=== PATIENT | male | born 1960 | race Caucasian/White ===

== ENCOUNTER 2023-03-14 17:30 | Emergency (ER) | payer MEDICAID, SELFPAY ==
--- NOTE | ~2023-03-14 | XR_ITS ---
EXAMINATION: XR TOES, RIGHT CLINICAL INFORMATION: Great toe pain. COMPARISON: None available. TECHNIQUE: 3 views of the right toes were obtained. FINDINGS: No acute fractures or subluxation. Mild joint space narrowing and subcortical sclerosis of the first metatarsophalangeal joint. No erosions or abnormal soft tissue calcifications. No unexpected radiopaque foreign bodies. XR/XR toe RT min 2V IMPRESSION: 1. No acute fractures or subluxation. 2. 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
[2023-03-14 17:34] VITALS: BP 152/84; PULSE 101; O2SAT 97
--- NOTE | 2023-03-14 17:35 | ED.EXTPRO ---
HPI - Extremity Problem General Chief complaint: Extremity Injury, Lower Stated complaint: ETOH Related Data Allergies Allergy/AdvReac Type Severity Reaction Status Date / Time pollen extracts [POLLEN] Allergy Unknown UNKNOWN Verified 03/14/23 18:08 [facility] Social History Social History Advance Directives: No Advance Directives Information Provided: No Physical Exam Vital Signs: Vital Signs: Last Vital Signs Temp 96.8 F 03/14/23 18:08 Pulse 97 03/14/23 18:08 Resp 18 03/14/23 18:08 BP 117/76 03/14/23 18:08 Pulse Ox 95 03/14/23 18:08 O2 Del Method Room Air 03/14/23 18:08 BMI result Body Mass Index 26.6 Course Course Course Narrative: RME - 62 yo male presents to the ER from home via EMS for evaluation of right great toe pain for the last 1 month. Pain is radiating up the leg to the knee. It used to be red and swollen 2 weeks ago but it is no longer. He admits to drinking a pint of vodka to try to get the pain to go away. VSS for EMS Plan: XR toe Reevaluation(s) Reevaluation #1: patient belligerent and disruptive. he was escorted out by security Discharge Plan Discharge Clinical Impression: Lower extremity injury Patient Disposition: Elopement Discharge Date/Time: 03/14/23 20:53
[2023-03-14 18:08] VITALS: BP 117/76; PULSE 97; RESP 18; TEMP 36; O2SAT 95; BMI 26.6
--- NOTE | 2023-03-14 20:51 | PC.NURSE ---
Pt screaming at staff fuck you what the fuck is going on when am I going to see the doctor . Pt reminded that he is in a room now and the doctor will be in to see him as soon as they can. Pt threatening to leave at this time. Pt educated to stay in order to be medically cleared by doctor. Pt agitated and swearing at staff at this time. Pt eloped.
== END 2023-03-14 20:53 | disposition left against medical advice (07) ==
PROVIDERS: Emergency Provider Emergency Medicine
DX: M79.674 Pain in right toe(s) (principal)
CPT/HCPCS: 73660; 99281; 99283

== ENCOUNTER 2023-04-03 11:50 | Emergency (ER) | payer MEDICAID, SELFPAY ==
[2023-04-03 12:10] VITALS: BP 137/80; BP 182/120; PULSE 87; PULSE 96; RESP 18; TEMP 36.7; O2SAT 93; O2SAT 95; BMI 26.6
--- NOTE | 2023-04-03 13:23 | ED_ITS ---
HPI - Psych General Chief Complaint: ETOH/Substance Use Stated Complaint: etoh use per ems Time Seen by Provider: 04/03/23 12:54 Related Data Allergies Allergy/AdvReac Type Severity Reaction Status Date / Time pollen extracts [POLLEN] Allergy Unknown UNKNOWN Verified 03/14/23 18:08 [facility] Social History Social History Advance Directives: No Advance Directives Information Provided: No Physical Exam Vital Signs: Vital Signs: Last Vital Signs Temp 98.1 F 04/03/23 12:10 Pulse 87 04/03/23 12:10 Resp 18 04/03/23 12:10 BP 137/80 04/03/23 12:10 Pulse Ox 95 04/03/23 12:10 O2 Del Method Room Air 04/03/23 12:10 BMI result Body Mass Index 26.6
--- NOTE | 2023-04-03 13:28 | ED_ITS ---
HPI - Alcohol General Chief Complaint: ETOH/Substance Use Stated Complaint: etoh use per ems Time Seen by Provider: 04/03/23 12:54 Source: patient Mode of arrival: EMS History of Present Illness HPI narrative: 62-year-old male who states that he call the ambulance has been drinking this morning, states he has been sober for 2 years but relapsed on Monday and reports drinking 2 L then. He denies any history of seizures from abstaining from alcohol and denies any other medical problems. Related Data Allergies Allergy/AdvReac Type Severity Reaction Status Date / Time pollen extracts [POLLEN] Allergy Unknown UNKNOWN Verified 03/14/23 18:08 Review of Systems Review of Systems: Pertinent positives and negatives as stated in HPI PMFSH Past Medical History Source: nursing notes reviewed Social History Social History Alcohol intake: current Alcohol intake frequency: 3 or more drinks per day Alcohol type: hard liquor Smoked in Last 30 Days: No Use of substances other than those prescribed or required for medical reasons: No Advance Directives: No Advance Directives Information Provided: No Physical Exam ED Vital Signs: Vital Signs - 24 hr 04/03/23 12:10 04/03/23 15:14 Temperature 98.1 F 96.3 F L Pulse Rate 87 81 Respiratory Rate 18 17 Blood Pressure 137/80 137/77 Pulse Oximetry 95 92 Oxygen Delivery Method Room Air Room Air BMI result Body Mass Index 26.6 VITAL SIGNS: Reviewed. GENERAL: Well developed, well nourished, in no acute distress. HEAD: Normocephalic/atraumatic EYES: PERRLA, EOMI EARS: Ext canals without abnormality NOSE: Nares patent bilateral OROPHARYNX: no oral lesions noted, posterior pharynx clear NECK: Supple, no adenopathy LUNGS: Normal breath sounds. No adventitious sounds or accessory muscle use. SpO2<95> CARDIOVASCULAR: Regular rate and rhythm without noted murmurs ABDOMEN: Soft, non-tender, non-distended with bowel sounds. MUSCULOSKELETAL: No tenderness, deformities, or effusions noted on gross inspection. EXTREMITIES: No cyanosis, clubbing or edema. SKIN: Inspection of the skin reveals no rashes NEUROLOGIC: Alert and oriented x 4. Strength and sensation to light touch were grossly intact x 4, cranial nerves 2-12 grossly intact. Medical Decision Making Medical Decision Making MDM Narrative: 62-year-old male, relapse on alcohol no history of DTs with seizures, will observe and obtain BAL/UDS and place a consult to the aircraft launch and recovery technician. Patient has been at [facility] previously. I reviewed all investigations, BAL-to 90, otherwise UDS is negative. Patient remains hemodynamically stable and is tolerating oral intake. Awaiting at aircraft launch and recovery technician evaluation for placement. Patient placed in physician observation because the patient needed more time for sobriety and possible placement for detox. At the time observation was started the patient's vital signs were stable, patient is alert and oriented, neuro: Nonfocal, CV RRR, lungs clear 1535: Looks like possibility of placement at [facility], phone intake is pending. Differential Diagnosis Please see the discussion above Lab Data Please see the discussion above Labs: Lab Results 04/03/23 04/03/23 Range/Units 14:28 14:28 Urine Opiates Screen Not Detected (Not Detect) Urine Fentanyl Screen Not Detected (Not Detect) Ur Barbiturates Screen Not Detected (Not Detect) Ur Phencyclidine Scrn Not Detected (Not Detect) Ur Amphetamines Screen Not Detected (Not Detect) U Benzodiazepines Scrn Not Detected (Not Detect) Urine Cocaine Screen Not Detected (Not Detect) U Marijuana (THC) Screen Not Detected (Not Detect) Ethyl Alcohol 290 mg/dL External Record Review External record reviewed: Outpatient record and Prior outpatient labs Discharge Plan Discharge Clinical Impression: Alcohol intoxication in relapsed alcoholic Patient Disposition: Still a Patient
--- NOTE | 2023-04-03 13:42 | MHC.RECOVRN ---
This creative writer met with patient, Provider alerted this creative writer, patient requesting detox. Patient reports has been in recovery for 2 years. Patient reports recent relapse Monday03/31/23, has been drinking since then, patient reports at least a gallon of hard alcohol since 03/31/23. Patient reports no other substance use. Patient states has gone to detox treatment in the past and it was helpful. Patient requesting detox at this time. This creative writer to start detox bedsearch process.
[2023-04-03 15:02] LABS: Ethanol 290 mg/dL
[2023-04-03 15:04] LABS: Amphetamine Screen Urine Not Detected (Not Detect); Barbiturates, Urine Not Detected (Not Detect); Benzodiazepines Screen Urine Not Detected (Not Detect); Cannabinoid Screen Urine Not Detected (Not Detect); Cocaine Screen Urine Not Detected (Not Detect); Fentanyl, urine Not Detected (Not Detect); Opiate Screen Urine Not Detected (Not Detect); Phencyclidine Screen Urine Not Detected (Not Detect)
[2023-04-03 15:14] VITALS: BP 137/77; PULSE 81; RESP 17; TEMP 35.7; O2SAT 92
[2023-04-03] MEDS: Ibuprofen 600 MG TABLET PO (16:06)
--- NOTE | 2023-04-03 17:12 | PC.NURSE ---
Patient accepted at [facility], provider made aware of plan and will get discharge paperwork started.
--- NOTE | 2023-04-03 17:16 | MHC.RECOVSUP ---
? Reason for consult Recovery support o Current location: ED17H o Identified substance use concern: Alcohol - Seeking ATS (detox) - Support ? Intervention: o Harm reduction discussion ? Plan: o Patient to follow up with H after discharge ? Additional information: Met with patient and we talk Harm reduction.. patient has a bed at [place] and is awaiting a lyft.
--- NOTE | 2023-04-03 17:19 | PHA.MEDREC ---
Pharmacy Consult ? Medication Reconciliation Pharmacy has completed the medication reconciliation. Spoke with patient in the ED. Pt reports taking clonidine at bedtime but no history of filling this medication.
[2023-04-03 17:27] VITALS: BP 145/92; PULSE 112; RESP 18; O2SAT 95
== END 2023-04-03 17:31 | disposition home or self-care (01) ==
PROVIDERS: Emergency Provider Student in an Organized Health Care Education/Training Program; PCP Family Medicine
DX: F10.220 Alcohol dependence with intoxication, uncomplicated (principal); Y90.9 Presence of alcohol in blood, level not specified
CPT/HCPCS: 36415; 80307; 99284; 99285

== ENCOUNTER 2023-05-07 13:10 | Emergency (ER) | payer MEDICAID, SELFPAY ==
--- NOTE | ~2023-05-07 | XR_ITS ---
EXAMINATION: XR KNEE, RIGHT CLINICAL INFORMATION: Pain, injury COMPARISON: None available. TECHNIQUE: Four views of the right knee. FINDINGS: Bones and soft tissues are normal. No fracture or joint effusion. Alignment is anatomic. Mild-moderate medial compartment joint space narrowing and osteophyte formation. There is moderate patellofemoral narrowing. There is heterotopic calcification in the suprapatellar region. 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
--- NOTE | ~2023-05-07 | XR_ITS ---
EXAMINATION: XR BILATERAL HIPS WITH AP PELVIS CLINICAL INFORMATION: Pain COMPARISON: None available. TECHNIQUE: 2 views of the right hip and 2 views of the left hip FINDINGS: 2 views of the right hip show 2 part prosthesis. No evidence of hardware failure. No acute bony finding. 2 views of the left hip in straight prosthesis. No evidence of hardware failure. No acute finding. There is the appearance of some lateralization of the acetabular component but this is likely the baseline. Numerous linear areas of density are seen associated with the region of the lesser trochanter may represent postsurgical wires. XR/XR hips EMMETT min 3V IMPRESSION: There are no studies to compare. Other findings as noted. No acute finding right or left hip. Hardware in place.
--- NOTE | ~2023-05-07 | XR_ITS ---
EXAMINATION: XR PELVIS CLINICAL INFORMATION: Bilateral hip pain COMPARISON: None available. TECHNIQUE: AP view of the pelvis. FINDINGS: There are bilateral hip arthroplasties. The angulation of the left hip arthroplasty is suspicious for possible dislocation. The right hip arthroplasty appears appropriately located. XR/XR pelvis 1-2V IMPRESSION: The angulation of the left hip arthroplasty is suspicious for possible dislocation. Recommend additional views, including lateral views of the bilateral hips.
[2023-05-07 13:29] VITALS: BP 139/73; RESP 16; TEMP 37.4; O2SAT 94; BMI 26.1
--- NOTE | 2023-05-07 13:54 | ED_ITS ---
HPI - General Adult General Chief complaint: ETOH/Substance Use Stated complaint: CRISIS SI Time Seen by Provider: 05/07/23 13:53 Source: patient and EMS Mode of arrival: EMS Limitations: no limitations History of Present Illness HPI narrative: Patient is a 62 year old assigned male at with a history of alcohol abuse and chronic bilateral hip pain presenting to the emergency department today intoxicated, feeling much more depressed, right knee pain, and acute on chronic hip pain. Patient states that he has been drinking today and feels more depressed, his right knee is bothering him, and both his hips are giving him pain. Patient denies any dizziness, lightheadedness, abdominal pain, nausea, vomiting, fever, chills, blurry vision, double vision, loss of vision, chest pain, difficulty breathing, shortness of breath, back pain, night sweats, pain with urination, increased urinary frequency, increased urinary urgency, blood in his urine or stool, syncope or a near syncopal episode, bowel incontinence, bladder incontinence, bowel retention, bladder retention, or any other complaints at this time. Onset (ago): hour(s) Severity: mild Severity scale (1-10): 3 Relieving factors: none Exacerbating factors: none Associated symptoms: denies other symptoms Treatments prior to arrival: none Related Data Home Medications Medication Instructions Recorded Confirmed atorvastatin 40 mg tablet 40 mg PO BEDTIME 04/03/23 05/07/23 escitalopram oxalate 10 mg tablet 10 mg PO QAM 04/03/23 05/07/23 hydroxyzine HCl 25 mg tablet 25 - 50 mg PO BID PRN Anxiety 04/03/23 05/07/23 meloxicam 7.5 mg tablet 7.5 mg PO DAILY PRN moderate pain 04/03/23 05/07/23 multivitamin 1 tab PO DAILY 04/03/23 05/07/23 nicotine (polacrilex) 4 mg gum 4 mg PO Q4H PRN Nicotine Cravings 04/03/23 05/07/23 terbinafine HCl 250 mg tablet 250 mg PO QAM 04/03/23 05/07/23 apixaban 5 mg tablet (Eliquis) 5 mg PO DAILY 05/07/23 05/07/23 turmeric 400 mg capsule 1,600 mg PO DAILY 05/07/23 05/07/23 Allergies Allergy/AdvReac Type Severity Reaction Status Date / Time pollen extracts [POLLEN] Allergy Unknown UNKNOWN Verified 03/14/23 18:08 Review of Systems Constitutional: Constitutional: Reports no additional constitutional complaints, Denies chills, Denies fever(s) and Denies night sweats Eyes: Eyes: Reports no additional eye complaints, Denies blurry vision, Denies change in vision, Denies diplopia, Denies eye discharge, Denies loss of vision and Denies eye pain ENT: Denies dizziness Cardiovascular: Cardiovascular: Reports no additional cardiovascular complaints, Denies chest pain, Denies lightheadedness, Denies Loss of Consciousness and Denies dyspnea Respiratory: Respiratory: Reports no additional respiratory complaints and Denies dyspnea Gastrointestinal: Gastrointestinal: Reports no additional gastrointestinal complaints, Denies abdominal pain, Denies melena, Denies hematochezia, Denies change in bowel habits and Denies change in stool character Genitourinary: Genitourinary: Reports no additional male genitourinary complaints, Denies hematuria, Denies oliguria, Denies difficulty urinating, Denies dysuria, Denies urinary frequency, Denies urinary hesitancy, Denies urinary incontinence and Denies urinary urgency Musculoskeletal: Musculoskeletal: Reports no additional musculoskeletal complaints, Denies numbness and Denies tingling Comments: right knee pain, bilateral hip pain Neurologic: Denies dizziness, Denies loss of vision, Denies numbness and Denies tingling Psychiatric: Psychiatric: Reports no additional psychiatric complaints and Re ports depression Endocrine: Endocrine: Reports no additional endocrine complaints Hematologic/Lymphatic: Hematologic/Lymphatic: Reports no additional hematologic/lymphatic complaints Allergic/Immunologic: Allergic/Immunologic: Reports no additional allergic/immunologic complaints [facility] Past Medical History Attestation statement: The following information was validated with the patient. Source: old records reviewed and nursing notes reviewed Social History Social History Alcohol intake: current Alcohol intake frequency: 3 or more drinks per day Alcohol type: hard liquor Smoked in Last 30 Days: No Use of substances other than those prescribed or required for medical reasons: No Advance Directives: No Advance Directives Information Provided: No Physical Exam ED Vital Signs: Vital Signs - 24 hr 05/07/23 13:29 05/08/23 06:09 05/08/23 07:54 Temperature 99.3 F 98 F 98.1 F Pulse Rate 73 78 Respiratory Rate 16 18 20 Blood Pressure 139/73 146/94 H 146/94 H Pulse Oximetry 94 97 96 Oxygen Delivery Method Room Air Room Air Room Air BMI result Body Mass Index 26.1 Const General: cooperative, no acute distress, alert and awake Nutritional Appearance: well nourished Orientation/consciousness: patient oriented x3 Limitations: no limitations HENMT Head: Yes normal to inspection and Yes atraumatic Ears: hearing grossly normal bilaterally and external ears normal General nose exam: Normal external nose present, no nasal discharge noted and no epistaxis Face and sinus: Yes normal facial exam, No abrasion and No laceration Mouth: Normal oral and palatal mucosa present, no drooling and no muffled voice Eyes Periorbital: periorbital findings normal Eyelids: Yes eyelids normal Conjunctivae: conjunctival abnormal right subconjunctival hemorrhage Pupils: Equal, round and reactive pupils present EOM: EOMs intact bilaterally Neck Neck: Yes normal visual inspection, Yes full ROM and Yes no lymphadenopathy Chest Chest palpation & inspection: normal inspection of the chest Resp Effort & Inspection: normal respiratory effort and able to speak in complete sentences Auscultation: clear to auscultation bilaterally Cardio Rate: regular rate Rhythm: regular rhythm GI Inspection: Yes normal to inspection Neuro General: patient oriented x3 and moves all extremities Cranial nerves: Yes Equal, round and reactive pupils present Cognition (Neuro): normal cognition Motor exam (neuro): 5/5 motor strength present throughout Sensory Exam: Normal double simultaneous stimulation for sensation Coordination: [id number] test normal Extrem Other: minimal bruising present to the right patella General: Yes full ROM and Yes capillary refill normal Psych Appearance: grossly normal Mental Status: mental status grossly normal Affect: normal affect Attitude: cooperative Thought process: Normal thought process present Thought content: Normal thought content present Insight: Good insight present (Psych) Course Reevaluation(s) Reevaluation #1: physician observation continued: most likely going to detox, suicidal ideation has subsided awaiting reevaluation by crisis Time: 08:47 Reevaluation #2: Seen and cleared by crisis. Time: 11:44 Medications Administered Generic Name Dose Route Start Last Admin Trade Name Freq PRN Reason Stop Dose Admin Apixaban 5 mg 05/08/23 09:00 05/08/23 08:32 Apixaban 5 Mg Tablet PO 5 mg DAILY MIGUEL Administration Atorvastatin Calcium 40 mg 05/07/23 21:00 05/07/23 20:47 Atorvastatin Calcium 40 Mg Tablet PO 40 mg BEDTIME MIGUEL Administration Escitalopram Oxalate 10 mg 05/08/23 09:00 05/08/23 08:32 Escitalopram Oxalate 10 Mg Tablet PO 10 mg DAILY MIGUEL Administration Multivitamins/Vitamin C 1 tab 05/08/23 09:00 05/08/23 08:31 Multivitamin Tablet PO 1 tab DAILY MIGUEL Administration Nicotine Polacrilex 4 mg 05/07/23 20:34 05/08/23 08:32 Nicotine Polacrilex 2 Mg Gum BUCCAL 4 mg Q4H PRN Administration Nicotine Cravings Discontinued Medications Generic Name Dose Route Start Last Admin Trade Name Silvina PRN Reason Stop Dose Admin Acetaminophen 650 mg 05/07/23 14:00 05/07/23 15:37 Acetaminophen 325 Mg Tablet PO 05/07/23 14:01 650 mg ONCE ONE Administration Lorazepam 2 mg 05/08/23 08:18 05/08/23 08:32 Lorazepam 1 Mg Tablet PO 05/08/23 08:19 2 mg ONCE ONE Administration Medical Decision Making Medical Decision Making [facility] Narrative: Patient is a 62 year old assigned male at with a history of alcohol abuse presenting to the emergency department today with bilateral hip pain, right knee pain, and alcohol intoxication. Patient's physical exam showed an intoxicated individual with minimal bruising to the right patella. Patient's blood work was unremarkable. Patient's knee, pelvis, and hip x-rays showed no acute process. I explained my physical exam findings as well as all test results to the patient. I answered all questions asked by the patient. Patient is awaiting CARE team evaluation. Differential Diagnosis Differential Diagnoses: The differential diagnosis associated with the presentation includes knee pain, knee fx, hip pain, hip fx, alcohol intoxication Admission/Observation Consideration of admission/observation: Escalation of care including admission/observation considered CARE team evaluation will determine admission. Lab Data [facility] Lab Attestation statement: I reviewed the patient's lab results. My interpretation of these studies and their corresponding values is that they are grossly normal. 05/07/23 15:10 05/07/23 15:10 Labs: Lab Results 05/07/23 05/07/23 05/07/23 Range/Units 15:10 15:10 20:42 WBC 5.5 (4.8-10.8) X10*3/uL RBC 5.08 (4.60-5.80) X10*6/uL Hgb 15.8 (14.0-18.0) g/dl Hct 46.0 (42.0-52.0) % MCV 90.6 (80.0-98.0) fL MCH 31.1 (27.0-33.0) pg MCHC 34.3 (31.0-36.0) g/dl RDW 15.0 (11.0-16.0) % Plt Count 173 (160-400) X10*3/uL MPV 8.2 L (9.4-12.4) fL Immature Gran % (Auto) 0.4 (0.0-0.4) % Neut % (Auto) 61.2 (45-73) % Lymph % (Auto) 26.4 (20-40) % [place] % (Auto) 10.8 (2-11) % Eos % (Auto) 0.7 (0-4) % Baso % (Auto) 0.5 (0-2) % Lymph # (Auto) 1.4 (1.2-4.9) X10*3/uL [place] # (Auto) 0.6 (0.1-1.2) X10*3/uL Eos # (Auto) 0.0 (0.0-0.4) X10*3/uL Baso # (Auto) 0.0 (0.0-0.2) X10*3/uL Abs Immat Gran (auto) 0.02 (0.00-0.03) X10*3/uL Absolute Neuts (auto) 3.3 (2.0-8.3) x10*3/uL Absolute Nucleated RBC 0.000 (0.0-0.012) X10*3/uL Nucleated RBC % (auto) 0.0 (0.0-0.2) /100WBC Sodium 146 H (135-145) mmol/L Potassium 3.9 (3.3-5.1) mmol/L Chloride 109 H (96-108) mmol/L Carbon Dioxide 21 L (22-29) mmol/L Anion Gap 20 (12-20) BUN 13 (9-16) mg/dL Creatinine 1.00 (0.5-1.4) mg/dL Estim Creat Clear Calc 77.5 Estimated GFR > 60 Random Glucose 106 (60-115) mg/dL Calcium 8.8 (8.4-10.2) mg/dL Total Bilirubin 0.5 (0.0-1.0) mg/dL AST 43 H (5-37) U/L ALT 35 (0-40) U/L Alkaline Phosphatase 69 (39-117) U/L Total Protein 7.2 (6.5-8.0) g/dL Albumin 4.5 (3.5-5.0) g/dL Urine Color Yellow Urine Appearance Clear Urine pH 5.5 (5.0-9.0) Ur Specific [place] 1.015 (1.005-1.025) Urine Protein 30 (1+) H (Neg-Trace) mg/dL Urine Glucose (UA) Negative (Negative) mg/dL Urine Ketones Negative (Negative) mg/dL Urine Blood Negative (Negative) Urine Nitrite Negative (Negative) Ur Leukocyte Esterase Negative (Negative) Urine RBC 0-2 (0-2) /HPF Urine WBC 0-5 (0-5) /HPF Ur Squamous Epith Cells 0-2 (0-2) /HPF Urine Bacteria None Seen (None Seen) Hyaline Casts 0-2 (0-2) /LPF Urine Opiates Screen (Not Detect) Urine Fentanyl Screen (Not Detect) Ur Barbiturates Screen (Not Detect) Ur Phencyclidine Scrn (Not Detect) Ur Amphetamines Screen (Not Detect) U Benzodiazepines Scrn (Not Detect) Urine Cocaine Screen (Not Detect) U Marijuana (THC) Screen (Not Detect) Ethyl Alcohol 364 H* mg/dL 05/07/23 Range/Units 20:42 WBC (4.8-10.8) X10*3/uL RBC (4.60-5.80) X10*6/uL Hgb (14.0-18.0) g/dl Hct (42.0-52.0) % MCV (80.0-98.0) fL MCH (27.0-33.0) pg MCHC (31.0-36.0) g/dl RDW (11.0-16.0) % Plt Count (160-400) X10*3/uL MPV (9.4-12.4) fL Immature Gran % (Auto) (0.0-0.4) % Neut % (Auto) (45-73) % Lymph % (Auto) (20-40) % [place] % (Auto) (2-11) % Eos % (Auto) (0-4) % Baso % (Auto) (0-2) % Lymph # (Auto) (1.2-4.9) X10*3/uL [place] # (Auto) (0.1-1.2) X10*3/uL Eos # (Auto) (0.0-0.4) X10*3/uL Baso # (Auto) (0.0-0.2) X10*3/uL Abs Immat Gran (auto) (0.00-0.03) X10*3/uL Absolute Neuts (auto) (2.0-8.3) x10*3/uL Absolute Nucleated RBC (0.0-0.012) X10*3/uL Nucleated RBC % (auto) (0.0-0.2) /100WBC Sodium (135-145) mmol/L Potassium (3.3-5.1) mmol/L Chloride (96-108) mmol/L Carbon Dioxide (22-29) mmol/L Anion Gap (12-20) BUN (9-16) mg/dL Creatinine (0.5-1.4) mg/dL Estim Creat Clear Calc Estimated GFR Random Glucose (60-115) mg/dL Calcium (8.4-10.2) mg/dL Total Bilirubin (0.0-1.0) mg/dL AST (5-37) U/L ALT (0-40) U/L Alkaline Phosphatase (39-117) U/L Total Protein (6.5-8.0) g/dL Albumin (3.5-5.0) g/dL Urine Color Urine Appearance Urine pH (5.0-9.0) Ur Specific [place] (1.005-1.025) Urine Protein (Neg-Trace) mg/dL Urine Glucose (UA) (Negative) mg/dL Urine Ketones (Negative) mg/dL Urine Blood (Negative) Urine Nitrite (Negative) Ur Leukocyte Esterase (Negative) Urine RBC (0-2) /HPF Urine WBC (0-5) /HPF Ur Squamous Epith Cells (0-2) /HPF Urine Bacteria (None Seen) Hyaline Casts (0-2) /LPF Urine Opiates Screen Not Detected (Not Detect) Urine Fentanyl Screen Not Detected (Not Detect) Ur Barbiturates Screen Not Detected (Not Detect) Ur Phencyclidine Scrn Not Detected (Not Detect) Ur Amphetamines Screen Not Detected (Not Detect) U Benzodiazepines Scrn Not Detected (Not Detect) Urine Cocaine Screen Not Detected (Not Detect) U Marijuana (THC) Screen Not Detected (Not Detect) Ethyl Alcohol mg/dL Independent Interpretation I performed an independent interpretation of an: Plain X-Ray Interpretation: My interpretation is in agreement with the radiologist's impression of these imaging studies. EXAMINATION: XR BILATERAL HIPS WITH AP PELVIS CLINICAL INFORMATION: Pain COMPARISON: None available. TECHNIQUE: 2 views of the right hip and 2 views of the left hip FINDINGS: 2 views of the right hip show 2 part prosthesis. No evidence of hardware failure. No acute bony finding. 2 views of the left hip in straight prosthesis. No evidence of hardware failure. No acute finding. There is the appearance of some lateralization of the acetabular component but this is likely the baseline. Numerous linear areas of density are seen associated with the region of the lesser trochanter may represent postsurgical wires. XR/XR hips EMMETT min 3V IMPRESSION: There are no studies to compare. Other findings as noted. No acute finding right or left hip. Hardware in place. Dictated By: Primo Rene MD Signed By: Electronically signed by Primo Rene MD 05/07/23 [id number] --- EXAMINATION: XR PELVIS CLINICAL INFORMATION: Bilateral hip pain? COMPARISON: None available.? TECHNIQUE: AP view of the pelvis. FINDINGS: There are bilateral hip arthroplasties. The angulation of the left hip arthroplasty is suspicious for possible dislocation. The right hip arthroplasty appears appropriately located.? XR/XR pelvis 1-2V IMPRESSION: The angulation of the left hip arthroplasty is suspicious for possible dislocation. Recommend additional views, including lateral views of the bilateral hips. Dictated By: Danya Pineda MD Signed By: Electronically signed by Danya Pineda MD 05/07/23 1449 EXAMINATION: XR KNEE, RIGHT? CLINICAL INFORMATION: Pain, injury? COMPARISON: None available.? TECHNIQUE: Four views of the right knee. FINDINGS: Bones and soft tissues are normal. No fracture or joint effusion. Alignment is anatomic. Mild-moderate medial compartment joint space narrowing and osteophyte formation. There is moderate patellofemoral narrowing. There is heterotopic calcification in the suprapatellar region. 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 Dictated By: Danya Pineda MD Signed By: Electronically signed by Danya Pineda MD 05/07/23 1440 Radiology Impression Discussion of test interpretation with radiology: I have reviewed the radiologist's reading. Independent Historian Clinical information obtained from an independent historian. History obtained from or confirmed by: EMS (EMS provided additional history and confirmed the history provided by the patient.) Critical Care Time Critical Care Time Critical Care Time: Yes Total Critical Care Time: 30 Attestation: I spent 30 minutes of Critical Care Time with this patient. This does not include time spent on separately reported billable procedures. Discharge Plan Discharge Clinical Impression: Alcoholic intoxication Patient Disposition: Still a Patient Prescriptions: No Action multivitamin Tablet 1 tab PO DAILY atorvastatin 40 mg tablet 40 mg PO BEDTIME meloxicam 7.5 mg tablet 7.5 mg PO DAILY PRN (Reason: moderate pain) terbinafine HCl 250 mg tablet 250 mg PO QAM nicotine (polacrilex) 4 mg gum 4 mg PO Q4H PRN (Reason: Nicotine Cravings) hydroxyzine HCl 25 mg tablet 25 - 50 mg PO BID PRN (Reason: Anxiety) escitalopram oxalate 10 mg tablet 10 mg PO QAM Eliquis 5 mg tablet 5 mg PO DAILY turmeric 400 mg Capsule 1,600 mg PO DAILY
--- NOTE | 2023-05-07 15:00 | PC.NURSE ---
pt is very verbally abusive towards staff, demanding food, demanding someone sit and listen to him, pointing very close to staff members faces. redirectable, given food. pt is slurring words, unsteady on feet.
[2023-05-07 15:14] LABS: MANUAL DIFF FLAG NO
[2023-05-07 15:15] LABS: Basophils Percent Auto 0.5 % (0-2); Eosinophils Percent Auto 0.7 % (0-4); Hemoglobin 15.8 g/dl (14.0-18.0); Imm Gran Abs Auto 0.02 X10*3/uL (0.00-0.03); Imm Gran Pct Auto 0.4 % (0.0-0.4); Lymphocytes Absolute Auto 1.4 X10*3/uL (1.2-4.9); Lymphocytes Percent Auto 26.4 % (20-40); Mean Corpuscular HGB Conc 34.3 g/dl (31.0-36.0); Mean Corpuscular Hemoglobin 31.1 pg (27.0-33.0); Mean Corpuscular Volume 90.6 fL (80.0-98.0); Mean Platelet Volume 8.2 fL (9.4-12.4); Monocytes Absolute Auto 0.6 X10*3/uL (0.1-1.2); Monocytes Percent Auto 10.8 % (2-11); Neutrophils Absolute Auto 3.3 x10*3/uL (2.0-8.3); Neutrophils Percent Auto 61.2 % (45-73); Platelet Count 173 X10*3/uL (160-400); Red Blood Count 5.08 X10*6/uL (4.60-5.80); White Blood Count 5.5 X10*3/uL (4.8-10.8)
[2023-05-07 15:31] LABS: Alanine Aminotransferase 35 U/L (0-40); Albumin Level 4.5 g/dL (3.5-5.0); Alkaline Phosphatase 69 U/L (39-117); Anion Gap 20 (12-20); Aspartate Amino Transferase 43 U/L (5-37); Bilirubin Total 0.5 mg/dL (0.0-1.0); Blood Urea Nitrogen 13 mg/dL (9-16); Calcium 8.8 mg/dL (8.4-10.2); Carbon Dioxide 21 mmol/L (22-29); Chloride 109 mmol/L (96-108); Creatinine Clr Calc Pharmacy 77.5; Estimated Glomerular Filt Rate > 60; Ethanol 364 mg/dL; Glucose Random 106 mg/dL (60-115); Potassium 3.9 mmol/L (3.3-5.1); Sodium 146 mmol/L (135-145); Total Protein 7.2 g/dL (6.5-8.0)
[2023-05-07] MEDS: Acetaminophen 325 MG TABLET 650 MG PO (15:37)
--- NOTE | 2023-05-07 16:01 | PC.NURSE ---
pt belongings taken to locker 10 in pod
--- NOTE | 2023-05-07 16:05 | PC.NURSE ---
pt ambulating behind nurses station, continuing to yell at staff, demanding food. security and this rn bringing pt back to bed, redirected to use call chang and ask for things properly and politely from staff. pt continues to shout at staff members.
--- NOTE | 2023-05-07 18:39 | PHA.MEDREC ---
Pharmacy Consult ? Medication Reconciliation Pharmacy has completed the medication reconciliation. spoke with patient and confirmed his medications. He said he stopped taking his naltrexone.
[2023-05-07] MEDS: Atorvastatin Calcium 40 MG TABLET PO (20:47)
[2023-05-07] MEDS: Nicotine Polacrilex 2 MG GUM 4 MG BUCCAL (20:47)
[2023-05-07 20:51] LABS: Appearance Urine Clear; Color Urine Yellow; Glucose Urine UA Negative (Negative); Leukocyte Esterase Urine Negative (Negative); Nitrite Urine Negative (Negative); PH 5.5 (5.0-9.0); Specific Gravity - Urine 1.015 (1.005-1.025); UMIC TRIGGER UACC YES; Urine Blood Negative (Negative); Urine Ketones Negative (Negative); Urine Protein 30 (1+) mg/dL (Neg-Trace)
[2023-05-07 20:53] LABS: Bacteria Urine None Seen (None Seen); Hyaline Casts Urine 0-2 /LPF (0-2); RBC Urine 0-2 /HPF (0-2); Squamous Epithelial Cell Urine 0-2 /HPF (0-2); WBC Urine 0-5 /HPF (0-5)
[2023-05-07 21:07] LABS: Amphetamine Screen Urine Not Detected (Not Detect); Barbiturates, Urine Not Detected (Not Detect); Benzodiazepines Screen Urine Not Detected (Not Detect); Cannabinoid Screen Urine Not Detected (Not Detect); Cocaine Screen Urine Not Detected (Not Detect); Fentanyl, urine Not Detected (Not Detect); Opiate Screen Urine Not Detected (Not Detect); Phencyclidine Screen Urine Not Detected (Not Detect)
[2023-05-08 06:09] VITALS: BP 146/94; PULSE 73; RESP 18; TEMP 36.6; O2SAT 97
--- NOTE | 2023-05-08 06:17 | PC.NURSE ---
Patient slept through the night, no distress observed/reported, asymptomatic of ETOH withdrawal at this time, medication compliant, care consult ordered, pending evaluation, VSS, behavior non concerning, labs completed/resulted, will continue to monitor.
[2023-05-08 07:54] VITALS: BP 146/94; PULSE 78; RESP 20; TEMP 36.7; O2SAT 96
[2023-05-08] MEDS: Multivitamin TABLET 1 TAB PO (08:31)
[2023-05-08] MEDS: LORazepam 1 MG TABLET 2 MG PO (08:32)
[2023-05-08] MEDS: Nicotine Polacrilex 2 MG GUM 4 MG BUCCAL ×2 (08:32→12:12)
[2023-05-08] MEDS: Escitalopram Oxalate 10 MG TABLET PO (08:32)
[2023-05-08] MEDS: Apixaban 5 MG TABLET PO (08:32)
--- NOTE | 2023-05-08 12:17 | MHC.CARE ---
CARE Team met with Pt secondary to consult for depression and alcohol use.Pts BAL was 364 yesterday 05/07/23 at 1510.? Today, ? CARE Team met with Pt in pod. Pt presented as alert, oriented and engaged. CARE Team wrote down questions on paper due to Pt hearing aid battery having . Pt reports he recently relapsed alcohol after almost a year of sobriety last month. 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 Pt is not endorsing current SI/HI/VH/AH. Pt declines needing further mental health or substance use intervention at this time.? Pt has hx of presenting to the ED intoxicated requesting recovery resources.? Pt provided with crisis information.? CARE Team reviewed consult with Dr. Gtz who will discharge Pt.
[2023-05-08 12:21] VITALS: BP 157/100; PULSE 93; RESP 15; TEMP 36.8; O2SAT 96
--- NOTE | 2023-05-08 12:35 | PC.NURSE ---
calm, cooperative. no distress noted. eating lunch. discharged. talking clearly/coherently. ciwa/cows complete. given dc paperwork. out to [facility] safely.
== END 2023-05-08 12:37 | disposition home or self-care (01) ==
PROVIDERS: Physician Assistant Medical; Emergency Provider Emergency Medicine; PCP Family Medicine
DX: F10.129 Alcohol abuse with intoxication, unspecified (principal); Y90.8 Blood alcohol level of 240 mg/100 ml or more; M25.552 Pain in left hip; M25.551 Pain in right hip; M25.561 Pain in right knee; R10.2 Pelvic and perineal pain; Z79.899 Other long term (current) drug therapy
CPT/HCPCS: 36415; 72170; 73522; 73562; 80053; 80307; 81001; 85025; 99285

== ENCOUNTER 2023-05-22 17:57 | Emergency (ER) | payer MEDICAID, SELFPAY ==
[2023-05-22 18:09] VITALS: BP 130/80; PULSE 106; O2SAT 90
[2023-05-22 18:11] VITALS: BP 130/88; PULSE 88; RESP 18; TEMP 37.3; O2SAT 88; BMI 26.6
[2023-05-22 18:18] VITALS: O2SAT 94
--- NOTE | 2023-05-22 18:27 | PC.NURSE ---
pt a&ox3, respirations equal and unlabored. pt on 2L nasal canula d/t o2 sat being 88 on room air, o2 sat 95 on 2L. pt reports drinking a whole gallon on liquor too fast. pt is reporting 6/10 abdominal pain. abdomen tender to touch in lower left and right quadrants as well as epigastric region. hypoactive bowel sounds in all 4 quadrants. previous scarring noted on left side of abdomen. normal sinus on tele.
--- NOTE | 2023-05-22 18:48 | ED.ALCOHOL ---
HPI - Alcohol General Chief Complaint: ETOH/Substance Use Stated Complaint: ETOH Time Seen by Provider: 05/22/23 18:43 Source: patient Mode of arrival: ambulatory Limitations: altered mental status (Intoxicated) History of Present Illness HPI narrative: 62-year-old male alcoholic history of chronic joint pain on apixaban for AFib hyperlipidemia anxiety presents to the emergency department complaining of alcohol abuse. Patient states he drank a gal of alcohol before coming in. Patient is very slow to respond patient was seen here approximately 2 weeks ago for the same but complained of joint pain had a completely normal workup. Patient is asking to go to a specific detox facility he denies SI or HI he denies any pain this time. Related Data Home Medications Medication Instructions Recorded Confirmed atorvastatin 40 mg tablet 40 mg PO BEDTIME 04/03/23 05/07/23 escitalopram oxalate 10 mg tablet 10 mg PO QAM 04/03/23 05/07/23 hydroxyzine HCl 25 mg tablet 25 - 50 mg PO BID PRN Anxiety 04/03/23 05/07/23 meloxicam 7.5 mg tablet 7.5 mg PO DAILY PRN moderate pain 04/03/23 05/07/23 multivitamin 1 tab PO DAILY 04/03/23 05/07/23 nicotine (polacrilex) 4 mg gum 4 mg PO Q4H PRN Nicotine Cravings 04/03/23 05/07/23 terbinafine HCl 250 mg tablet 250 mg PO QAM 04/03/23 05/07/23 apixaban 5 mg tablet (Eliquis) 5 mg PO DAILY 05/07/23 05/07/23 turmeric 400 mg capsule 1,600 mg PO DAILY 05/07/23 05/07/23 Allergies Allergy/AdvReac Type Severity Reaction Status Date / Time pollen extracts [POLLEN] Allergy Unknown UNKNOWN Verified 03/14/23 18:08 Review of Systems Review of Systems: Review of systems: General: Patient denies any fever chills recent illness or falls Musculoskeletal: Denies back pain or body aches or other injuries HEENT: denies headache, runny nose, ear pain Respiratory: denies shortness of breath, cough Cardiovascular: no chest pain or palpitations : denies dysuria, frequency Abdomen: no nausea vomiting denies abdominal pain Extremities: no swelling, no pain Skin: no diaphoresis Yes all other systems are reviewed and are negative PMFSH Social History Social History Alcohol intake: current Alcohol intake frequency: 3 or more drinks per day Alcohol type: hard liquor Smoked in Last 30 Days: No Use of substances other than those prescribed or required for medical reasons: No Advance Directives: No Advance Directives Information Provided: Yes Physical Exam ED Vital Signs: Vital Signs - 24 hr 05/22/23 18:11 05/22/23 18:18 Temperature 99.1 F Pulse Rate 88 Respiratory Rate 18 Blood Pressure 130/88 Pulse Oximetry 88 L 94 Oxygen Delivery Method Room Air Nasal Cannula Oxygen Flow Rate 2 BMI result Body Mass Index 26.6 Neurological exam: CN II- XII tested. Patient is alert and oriented to person place and time. Patient has no dysphagia or dysarthia, denies good vision in all four vision aaron no nystagmus on exam, good strength to upper and lower extremities with normal reflexes to brachioradialis, wrist, patella and achilles. Negative romberg, good finger to nose and heel to berumen. General: Well-appearing well-nourished in no signs of distress HEENT: Normocephalic atraumatic Neck: No signs of JVD, no masses no tenderness or lymphadenopathy Cardiovascular: Regular rate and rhythm Respiratory: Clear to auscultation bilaterally Abdomen: Soft nontender no masses Extremities: Normal pedal pulses no signs of edema Skin: Dry warm no rashes Back: No tenderness full ROM Course Reevaluation(s) Reevaluation #1: 1918 Patient seen by recovery coordinator. Medical Decision Making Medical Decision Making [facility] Narrative: Will check labs and alcohol level give the patient something for epigastric pain. Shortly after I saw the patient he became agitated. Given haldol pepcid and maalox for burning epigastric pain. I will start on librium 100 mg now and start a CIWA Differential Diagnosis Differential Diagnoses: The differential diagnosis associated with the presentation includes Electrode abnormality altered mental status alcohol intoxications most likely Lab Data [facility] Lab Attestation statement: I reviewed the patient's lab results. Labs are all tracie. 05/22/23 19:02 05/22/23 19:02 Labs: Lab Results 05/22/23 05/22/23 05/22/23 Range/Units 19:02 19:02 19:02 WBC 4.8 (4.8-10.8) X10*3/uL RBC 5.35 (4.60-5.80) X10*6/uL Hgb 16.8 (14.0-18.0) g/dl Hct 47.9 (42.0-52.0) % MCV 89.5 (80.0-98.0) fL MCH 31.4 (27.0-33.0) pg MCHC 35.1 (31.0-36.0) g/dl RDW 14.8 (11.0-16.0) % Plt Count 327 D (160-400) X10*3/uL MPV 8.0 L (9.4-12.4) fL Immature Gran % (Auto) 0.4 (0.0-0.4) % Neut % (Auto) 58.2 (45-73) % Lymph % (Auto) 27.3 (20-40) % [place] % (Auto) 12.9 H (2-11) % Eos % (Auto) 0.2 (0-4) % Baso % (Auto) 1.0 (0-2) % Lymph # (Auto) 1.3 (1.2-4.9) X10*3/uL [place] # (Auto) 0.6 (0.1-1.2) X10*3/uL Eos # (Auto) 0.0 (0.0-0.4) X10*3/uL Baso # (Auto) 0.1 (0.0-0.2) X10*3/uL Abs Immat Gran (auto) 0.02 (0.00-0.03) X10*3/uL Absolute Neuts (auto) 2.8 (2.0-8.3) x10*3/uL Absolute Nucleated RBC 0.000 (0.0-0.012) X10*3/uL Nucleated RBC % (auto) 0.0 (0.0-0.2) /100WBC Sodium 143 (135-145) mmol/L Potassium 3.4 (3.3-5.1) mmol/L Chloride 103 (96-108) mmol/L Carbon Dioxide 22 (22-29) mmol/L Anion Gap 21 H (12-20) BUN 20 H (9-16) mg/dL Creatinine 0.80 (0.5-1.4) mg/dL Estim Creat Clear Calc 96.9 Estimated GFR > 60 Random Glucose 203 H (60-115) mg/dL Calcium 9.2 (8.4-10.2) mg/dL Total Bilirubin 0.3 (0.0-1.0) mg/dL Direct Bilirubin 0.1 (0.0-0.5) mg/dL AST 30 (5-37) U/L ALT 28 (0-40) U/L Alkaline Phosphatase 61 (39-117) U/L Total Protein 6.3 L (6.5-8.0) g/dL Albumin 4.1 (3.5-5.0) g/dL Lipase 30 (8-78) U/L Ethyl Alcohol 345 H* mg/dL Medications Administered Discontinued Medications Generic Name Dose Route Start Last Admin Trade Name Freq PRN Reason Stop Dose Admin Al Hydroxide/Mg Hydroxide 30 ml 05/22/23 20:04 05/22/23 20:15 Magnesium Hydrox/Alum Hydrox 30 Ml Oral.Susp PO 05/22/23 20:05 30 ml ONCE ONE Administration Famotidine 20 mg 05/22/23 20:04 05/22/23 20:15 Famotidine 20 Mg Tablet PO 05/22/23 20:05 20 mg ONCE ONE Administration Haloperidol Lactate 5 mg 05/22/23 20:04 05/22/23 20:15 Haloperidol Lactate 5 Mg/Ml Vial IM 05/22/23 20:05 5 mg ONCE ONE Administration Discharge Plan Discharge Clinical Impression: Alcoholic intoxication Patient Disposition: Still a Patient Transfer Details: Patient still pending sober re-evalation. Prescriptions: No Action multivitamin Tablet 1 tab PO DAILY atorvastatin 40 mg tablet 40 mg PO BEDTIME meloxicam 7.5 mg tablet 7.5 mg PO DAILY PRN (Reason: moderate pain) terbinafine HCl 250 mg tablet 250 mg PO QAM nicotine (polacrilex) 4 mg gum 4 mg PO Q4H PRN (Reason: Nicotine Cravings) hydroxyzine HCl 25 mg tablet 25 - 50 mg PO BID PRN (Reason: Anxiety) escitalopram oxalate 10 mg tablet 10 mg PO QAM Eliquis 5 mg tablet 5 mg PO DAILY turmeric 400 mg Capsule 1,600 mg PO DAILY
[2023-05-22 19:06] LABS: MANUAL DIFF FLAG NO
[2023-05-22 19:07] LABS: Basophils Absolute Auto 0.1 X10*3/uL (0.0-0.2); Eosinophils Percent Auto 0.2 % (0-4); Hematocrit 47.9 % (42.0-52.0); Hemoglobin 16.8 g/dl (14.0-18.0); Imm Gran Abs Auto 0.02 X10*3/uL (0.00-0.03); Imm Gran Pct Auto 0.4 % (0.0-0.4); Lymphocytes Absolute Auto 1.3 X10*3/uL (1.2-4.9); Lymphocytes Percent Auto 27.3 % (20-40); Mean Corpuscular HGB Conc 35.1 g/dl (31.0-36.0); Mean Corpuscular Hemoglobin 31.4 pg (27.0-33.0); Mean Corpuscular Volume 89.5 fL (80.0-98.0); Monocytes Absolute Auto 0.6 X10*3/uL (0.1-1.2); Monocytes Percent Auto 12.9 % (2-11); Neutrophils Absolute Auto 2.8 x10*3/uL (2.0-8.3); Neutrophils Percent Auto 58.2 % (45-73); Platelet Count 327 X10*3/uL (160-400); Red Blood Count 5.35 X10*6/uL (4.60-5.80); Red Cell Distribution Width 14.8 % (11.0-16.0); White Blood Count 4.8 X10*3/uL (4.8-10.8)
--- NOTE | 2023-05-22 19:19 | MHC.RECOVSUP ---
? Reason for consult Recovery support o Current location: ED20 o Identified substance use concern: Alcohol - Seeking ATS (detox) - Support ? Intervention: <del>o</del> <del>ATS</del> <del>bed</del> <del>search</del> <del>started/completed/in</del> <del>process</del> <del>o</del> <del>MAT</del> <del>started</del> <del>or</del> <del>to</del> <del>be</del> <del>started</del> o Community resources provided o Harm reduction discussion ? Plan: o Patient to follow up with [facility] after discharge ? Additional information: Met with Patient we talk about recovery and Harm reduction... Patient ststed that he would like to go to a ATS.. I made the provider aware of patient plan.. RC waiting for patient to be cleared for detox..
[2023-05-22 19:50] LABS: Ethanol 345 mg/dL
[2023-05-22 20:02] LABS: Alanine Aminotransferase 28 U/L (0-40); Albumin Level 4.1 g/dL (3.5-5.0); Alkaline Phosphatase 61 U/L (39-117); Anion Gap 21 (12-20); Aspartate Amino Transferase 30 U/L (5-37); Bilirubin Direct 0.1 mg/dL (0.0-0.5); Bilirubin Total 0.3 mg/dL (0.0-1.0); Blood Urea Nitrogen 20 mg/dL (9-16); Calcium 9.2 mg/dL (8.4-10.2); Carbon Dioxide 22 mmol/L (22-29); Chloride 103 mmol/L (96-108); Creatinine Clr Calc Pharmacy 96.9; Estimated Glomerular Filt Rate > 60; Glucose Random 203 mg/dL (60-115); Lipase 30 U/L (8-78); Potassium 3.4 mmol/L (3.3-5.1); Sodium 143 mmol/L (135-145); Total Protein 6.3 g/dL (6.5-8.0)
[2023-05-22] MEDS: Magnesium Hydrox/Alum Hydrox 30 ML ORAL.SUSP PO (20:15)
[2023-05-22] MEDS: Famotidine 20 MG TABLET PO (20:15)
[2023-05-22] MEDS: Haloperidol Lactate 5 MG/ML VIAL IM (20:15)
[2023-05-22 21:23] VITALS: BP 105/62; PULSE 80; RESP 14; TEMP 36.4; O2SAT 88
[2023-05-22] MEDS: chlordiazePOXIDE HCl 25 MG CAPSULE 100 MG PO (21:46)
--- NOTE | 2023-05-22 21:47 | PC.NURSE ---
Addendum entered by Antoinette Jordan 05/22/23 23:41: current order for ativan taper in place previously ordered by dr fitch. per dr fitch loading dose of ativan held due to administration of librium.this rn contacted pharmacy regarding order. per pharmacy taper canceled due to loading dose being held by . prn ativan order remains in place as needed Original Note: pt medicated according to mar. per dr fitch give librium hold ativan at this time. seizure pads in place
[2023-05-23 00:51] VITALS: BP 108/67; PULSE 68; RESP 16; TEMP 36.6; O2SAT 97
--- NOTE | 2023-05-23 02:18 | PC.NURSE ---
pt sleeping positioned on L side .vss.
[2023-05-23 05:46] VITALS: BP 118/75; PULSE 73; RESP 13; TEMP 36.9; O2SAT 98
--- NOTE | 2023-05-23 07:07 | PC.NURSE ---
ambulatory trial with this rn and additional rn. pt provided with sandwich and water. pt calm and cooperative. vss. pt provided with discharge packet and bus pass. pt verbalized understanding of discharge plan
== END 2023-05-23 07:08 | disposition home or self-care (01) ==
PROVIDERS: Emergency Provider Student in an Organized Health Care Education/Training Program
DX: F10.129 Alcohol abuse with intoxication, unspecified (principal); Y90.8 Blood alcohol level of 240 mg/100 ml or more; Z79.899 Other long term (current) drug therapy
CPT/HCPCS: 36415; 80048; 80076; 80307; 83690; 85025; 96372; 99284; 99285

== ENCOUNTER 2023-07-21 13:18 | Emergency (ER) | payer MEDICAID, SELFPAY ==
[2023-07-21 13:26] VITALS: BP 150/96; BP 162/90; PULSE 102; PULSE 91; RESP 16; TEMP 36.1; O2SAT 96; BMI 27.4
--- NOTE | 2023-07-21 13:36 | ED.ALCOHOL ---
HPI - Alcohol General Chief Complaint: ETOH/Substance Use Stated Complaint: ETOH SEEKING REHAB Time Seen by Provider: 07/21/23 13:21 Source: patient and EMS Mode of arrival: EMS Limitations: other (intoxicated ) History of Present Illness HPI narrative: 62-year-old male presents with EMS for acute alcohol intoxication reports binge drinking and would like to go to [facility]. Denies suicidal and homicidal ideation. No medical complaints. Patient has not fallen, no trauma. Patient uncooperative, not following commands, screaming at staff members. Related Data Home Medications Medication Instructions Recorded Confirmed atorvastatin 40 mg tablet 40 mg PO BEDTIME 04/03/23 05/07/23 escitalopram oxalate 10 mg tablet 10 mg PO QAM 04/03/23 05/07/23 hydroxyzine HCl 25 mg tablet 25 - 50 mg PO BID PRN Anxiety 04/03/23 05/07/23 meloxicam 7.5 mg tablet 7.5 mg PO DAILY PRN moderate pain 04/03/23 05/07/23 multivitamin 1 tab PO DAILY 04/03/23 05/07/23 nicotine (polacrilex) 4 mg gum 4 mg PO Q4H PRN Nicotine Cravings 04/03/23 05/07/23 terbinafine HCl 250 mg tablet 250 mg PO QAM 04/03/23 05/07/23 apixaban 5 mg tablet (Eliquis) 5 mg PO DAILY 05/07/23 05/07/23 turmeric 400 mg capsule 1,600 mg PO DAILY 05/07/23 05/07/23 Allergies Allergy/AdvReac Type Severity Reaction Status Date / Time pollen extracts [POLLEN] Allergy Unknown UNKNOWN Verified 03/14/23 18:08 Review of Systems Review of Systems: Yes Unobtainable due to mental status [facility] Past Medical History Attestation statement: The following information was validated with the patient. Source: old records reviewed and nursing notes reviewed Social History Social History Alcohol intake: current Alcohol intake frequency: 3 or more drinks per day Alcohol type: hard liquor Advance Directives: No Advance Directives Information Provided: Yes Physical Exam ED Vital Signs: Vital Signs - 24 hr 07/21/23 13:26 Temperature 96.9 F Pulse Rate 91 Respiratory Rate 16 Blood Pressure 150/96 H Pulse Oximetry 96 Oxygen Delivery Method Room Air BMI result Body Mass Index 27.4 vss Appearance: Alert.? Oriented X3.? No acute distress.? Patient smells like alcohol. Head: Normocephalic, atraumatic, no step-offs or deformities Eyes: Pupils equal, round and reactive to light.? Neck: Normal inspection.? Neck supple.? CVS: Normal heart rate and rhythm.? Pulses normal.? Respiratory: No respiratory distress.? Breath sounds normal.? Abdomen: Soft and nontender.? Skin: Skin warm and dry.? Normal skin color.? Normal skin turgor.? Extremities: No lower extremity edema.? No calf ttp. 5/5 strength to bilateral upper and lower extremities Neuro: Oriented X 3.? No motor deficit.? No sensory deficit. CN 2-12 intact following commands. Course Reevaluation(s) Reevaluation #1: CBC appears to be around patient's baseline. No acute findings. Patient's platelets are lower than previous blood drawn 05/22/2023 however he has been this low in the past. Not an acute finding. UA without infection. Chemistry, drug abuse screening and ethanol level pending. Patient ambulate her in the department, with normal coordination. Following commands. No medical complaints. Time: 15:55 Reevaluation #2: Chemistry pending. Ethanol level 328. Time: 16:13 Reevaluation #3: History with elevated anion gap likely secondary to acute alcohol intoxication, BUN slightly elevated however patient tolerating p.o. fluids likely secondary to poor p.o. intake/dehydration will encourage p.o. fluids. I do not suspect DKA on patient. His glucose is slightly elevated to 224, patient not a diabetic, unlikely DKA. This is likely secondary to patient eating prior to arrival and currently eating while in the department. Pending eval by recovery or care team seeking deotx. Patient to be placed in observation at this time. Time: 16:14 Medical Decision Making Medical Decision Making [facility] Narrative: [id number] 62-year-old male presents status post binge drinking poor historian. Not SI or HI. Looking for detox Physical exam benign however patient does appear intoxicated smells like alcohol. Alert and oriented x4. Following commands. History and physical exam concerning for acute alcohol intoxication possible polysubstance abuse. Will rule out metabolic derangements. No signs of trauma to head, neck, chest, abdomen or pelvis. Plan at this time medical clearance evaluation by behavioral health team. Differential Diagnosis Differential Diagnoses: The differential diagnosis associated with the presentation includes History and physical exam concerning for acute alcohol intoxication possible polysubstance abuse. Will rule out metabolic derangements. No signs of trauma to head, neck, chest, abdomen or pelvis. Admission/Observation Consideration of admission/observation: Escalation of care including admission/observation considered unlikely Lab Data [facility]DM Lab Attestation statement: I reviewed the patient's lab results. 07/21/23 15:32 07/21/23 15:32 Labs: Lab Results 07/21/23 Range/Units 15:32 WBC 4.3 L (4.8-10.8) X10*3/uL RBC 4.60 (4.60-5.80) X10*6/uL Hgb 14.9 (14.0-18.0) g/dl Hct 42.1 (42.0-52.0) % MCV 91.5 (80.0-98.0) fL MCH 32.4 (27.0-33.0) pg MCHC 35.4 (31.0-36.0) g/dl RDW 15.0 (11.0-16.0) % Plt Count 197 D (160-400) X10*3/uL MPV 8.0 L (9.4-12.4) fL Immature Gran % (Auto) 1.2 H (0.0-0.4) % Neut % (Auto) 63.7 (45-73) % Lymph % (Auto) 26.5 (20-40) % [place] % (Auto) 7.5 (2-11) % Eos % (Auto) 0.2 (0-4) % Baso % (Auto) 0.9 (0-2) % Lymph # (Auto) 1.1 L (1.2-4.9) X10*3/uL [place] # (Auto) 0.3 (0.1-1.2) X10*3/uL Eos # (Auto) 0.0 (0.0-0.4) X10*3/uL Baso # (Auto) 0.0 (0.0-0.2) X10*3/uL Abs Immat Gran (auto) 0.05 H (0.00-0.03) X10*3/uL Absolute Neuts (auto) 2.7 (2.0-8.3) x10*3/uL Absolute Nucleated RBC 0.000 (0.0-0.012) X10*3/uL Nucleated RBC % (auto) 0.0 (0.0-0.2) /100WBC Sodium 136 (135-145) mmol/L Potassium 3.5 (3.3-5.1) mmol/L Chloride 99 (96-108) mmol/L Carbon Dioxide 18 L (22-29) mmol/L Anion Gap 23 H (12-20) BUN 17 H (9-16) mg/dL Creatinine 0.80 (0.5-1.4) mg/dL Estim Creat Clear Calc 96.9 Estimated GFR > 60 Random Glucose 224 H (60-115) mg/dL Calcium 8.8 (8.4-10.2) mg/dL Magnesium 1.8 (1.6-2.6) mg/dL Total Bilirubin 0.4 (0.0-1.0) mg/dL AST 45 H (5-37) U/L ALT 29 (0-40) U/L Alkaline Phosphatase 59 (39-117) U/L Total Protein 6.5 (6.5-8.0) g/dL Albumin 4.3 (3.5-5.0) g/dL Urine Color Yellow Urine Appearance Clear Urine pH 5.5 (5.0-9.0) Ur Specific [place] 1.020 (1.005-1.025) Urine Protein 100 (2+) H (Neg-Trace) mg/dL Urine Glucose (UA) Negative (Negative) mg/dL Urine Ketones 40 (Negative) mg/dL Urine Blood Trace H (Negative) Urine Nitrite Negative (Negative) Ur Leukocyte Esterase Negative (Negative) Urine RBC 0-2 (0-2) /HPF Urine WBC 0-5 (0-5) /HPF Ur Squamous Epith Cells 0-2 (0-2) /HPF Urine Bacteria None Seen (None Seen) Hyaline Casts 0-2 (0-2) /LPF Ethyl Alcohol 328 H* mg/dL External Record Review External record reviewed: Inpatient record, Office record, Outpatient record, Prior outpatient labs, Primary care record and Outside ED record Tests considered The following testing was considered but not selected: No signs of trauma no indication for imaging of head, neck, chest, abdomen or pelvis. Patient also denies falls. Social Determinants Patient?s care significantly limited by Social Determinants of Health including: Alcoholism and drug addiction in family Core Measures AMI core measures followed: Yes Measure exclusions: not indicated Critical Care Time Critical Care Time Critical Care Time: No Discharge Plan Discharge Clinical Impression: Alcoholic intoxication Patient Disposition: Still a Patient Prescriptions: No Action multivitamin Tablet 1 tab PO DAILY atorvastatin 40 mg tablet 40 mg PO BEDTIME meloxicam 7.5 mg tablet 7.5 mg PO DAILY PRN (Reason: moderate pain) terbinafine HCl 250 mg tablet 250 mg PO QAM nicotine (polacrilex) 4 mg gum 4 mg PO Q4H PRN (Reason: Nicotine Cravings) hydroxyzine HCl 25 mg tablet 25 - 50 mg PO BID PRN (Reason: Anxiety) escitalopram oxalate 10 mg tablet 10 mg PO QAM Eliquis 5 mg tablet 5 mg PO DAILY turmeric 400 mg Capsule 1,600 mg PO DAILY
--- NOTE | 2023-07-21 15:26 | MHC.RECOVRN ---
Addendum entered by Kathi Arias RN 07/21/23 15:34: Referral packet sent to [facility]. Original Note: T/w met with pt to discuss recovery goals. Pt reports daily drinking for the past week, A big jug of vodka daily . States he is a binge drinker, and has been for years. Pt reports he has gone to [facility] previously and is expressing desire to go back there. Pt denies hx of siezures or complicated withdrawal. Last drink was today. Pt does not appear diaphoretic/tremulous at this time, has been agreeable to provide a urine for tox. Plan for detox bedsearch.
[2023-07-21 15:37] LABS: MANUAL DIFF FLAG NO
[2023-07-21 15:41] LABS: Appearance Urine Clear; Color Urine Yellow; Glucose Urine UA Negative (Negative); Leukocyte Esterase Urine Negative (Negative); Nitrite Urine Negative (Negative); PH 5.5 (5.0-9.0); UMIC TRIGGER UACC YES; Urine Blood Trace (Negative); Urine Ketones 40 mg/dL (Negative); Urine Protein 100 (2+) mg/dL (Neg-Trace)
[2023-07-21 15:42] LABS: Basophils Percent Auto 0.9 % (0-2); Eosinophils Percent Auto 0.2 % (0-4); Hematocrit 42.1 % (42.0-52.0); Hemoglobin 14.9 g/dl (14.0-18.0); Imm Gran Abs Auto 0.05 X10*3/uL (0.00-0.03); Imm Gran Pct Auto 1.2 % (0.0-0.4); Lymphocytes Absolute Auto 1.1 X10*3/uL (1.2-4.9); Lymphocytes Percent Auto 26.5 % (20-40); Mean Corpuscular HGB Conc 35.4 g/dl (31.0-36.0); Mean Corpuscular Hemoglobin 32.4 pg (27.0-33.0); Mean Corpuscular Volume 91.5 fL (80.0-98.0); Monocytes Absolute Auto 0.3 X10*3/uL (0.1-1.2); Monocytes Percent Auto 7.5 % (2-11); Neutrophils Absolute Auto 2.7 x10*3/uL (2.0-8.3); Neutrophils Percent Auto 63.7 % (45-73); Platelet Count 197 X10*3/uL (160-400); White Blood Count 4.3 X10*3/uL (4.8-10.8)
[2023-07-21 15:52] LABS: Bacteria Urine None Seen (None Seen); Hyaline Casts Urine 0-2 /LPF (0-2); RBC Urine 0-2 /HPF (0-2); Squamous Epithelial Cell Urine 0-2 /HPF (0-2); WBC Urine 0-5 /HPF (0-5)
[2023-07-21 16:06] LABS: Ethanol 328 mg/dL
[2023-07-21 16:17] LABS: Alanine Aminotransferase 29 U/L (0-40); Albumin Level 4.3 g/dL (3.5-5.0); Alkaline Phosphatase 59 U/L (39-117); Anion Gap 23 (12-20); Aspartate Amino Transferase 45 U/L (5-37); Bilirubin Total 0.4 mg/dL (0.0-1.0); Blood Urea Nitrogen 17 mg/dL (9-16); Calcium 8.8 mg/dL (8.4-10.2); Carbon Dioxide 18 mmol/L (22-29); Chloride 99 mmol/L (96-108); Creatinine Clr Calc Pharmacy 96.9; Estimated Glomerular Filt Rate > 60; Glucose Random 224 mg/dL (60-115); Magnesium 1.8 mg/dL (1.6-2.6); Potassium 3.5 mmol/L (3.3-5.1); Sodium 136 mmol/L (135-145); Total Protein 6.5 g/dL (6.5-8.0)
--- NOTE | 2023-07-21 17:16 | PC.NURSE ---
Pt at nursing station stating he was going to leave that he was inpatient. PT advised to please sit back on bed, that he needed to wait for recovery team to come and assess him. Pt found to elope from ED, all belongings took with patient.
[2023-07-21 17:31] LABS: Amphetamine Screen Urine Not Detected (Not Detect); Barbiturates, Urine Not Detected (Not Detect); Benzodiazepines Screen Urine Not Detected (Not Detect); Cannabinoid Screen Urine Not Detected (Not Detect); Cocaine Screen Urine Not Detected (Not Detect); Fentanyl, urine Not Detected (Not Detect); Opiate Screen Urine Not Detected (Not Detect); Phencyclidine Screen Urine Not Detected (Not Detect)
== END 2023-07-21 17:18 | disposition left against medical advice (07) ==
PROVIDERS: Physician Assistant; Emergency Provider Emergency Medicine; PCP Nurse Practitioner Family
DX: F10.220 Alcohol dependence with intoxication, uncomplicated (principal); Y90.8 Blood alcohol level of 240 mg/100 ml or more; Z79.899 Other long term (current) drug therapy
CPT/HCPCS: 36415; 80053; 80307; 81001; 83735; 85025; 99282; 99284

== ENCOUNTER 2023-07-27 08:29 | Emergency (ER) | payer MEDICAID, SELFPAY ==
--- NOTE | ~2023-07-27 | XR_ITS ---
EXAMINATION: XR CHEST CLINICAL INFORMATION: Patient uncooperative COMPARISON: None available. TECHNIQUE: Frontal view of the chest was obtained. FINDINGS: Bilateral low lung volumes. Elevation the right hemidiaphragm. Bronchopulmonary vascular crowding. No pneumothorax. Trachea is midline. Cardiac mediastinal silhouette is not enlarged. No large pleural effusion. Osseous structures are intact. Soft tissues are unremarkable. XR/XR chest 1V IMPRESSION: 1. Bilateral low lung volumes. 2. Elevation the right hemidiaphragm. 3. Bronchopulmonary vascular crowding.
--- NOTE | ~2023-07-27 | CT_ITS ---
EXAMINATION: CT HEAD WITHOUT CONTRAST CLINICAL INFORMATION: Fall. Low platelet count. COMPARISON: No relevant prior imaging. TECHNIQUE: Contiguous axial imaging was performed from the skull base to vertex without intravenous administration of contrast. This CT examination was performed using dose optimization techniques as appropriate, variously including the following: *Automated exposure control *Adjustment of mA and/or kV according to patient size (this includes techniques or standardized protocols for targeted exams where dose is matched to indication/reason for exam; i.e. extremities or head) *Use of iterative reconstruction technique DLP: 769 mGy-cm FINDINGS: There is no acute intracranial hemorrhage or abnormal extra-axial collection. No intracranial mass effect or midline shift. Lateral and third ventricles are normal. No hydrocephalus. Blake-white matter differentiation is grossly preserved and there is no evidence of acute territorial infarct. The calvarium and skull base are intact. Mastoid air cells and middle ear cavities are well aerated. No active paranasal sinus disease. CT/CT head/brain wo IV con IMPRESSION: Unremarkable CT scan of the head. No evidence of acute territorial infarct or hemorrhage.
[2023-07-27 08:39] VITALS: BP 139/92; BP 153/96; PULSE 104; PULSE 116; RESP 18; TEMP 36.6; O2SAT 93; O2SAT 97; BMI 26.6
[2023-07-27 09:44] LABS: MANUAL DIFF FLAG NO
[2023-07-27 09:51] LABS: Basophils Percent Auto 0.8 % (0-2); Eosinophils Percent Auto 0.6 % (0-4); Hematocrit 46.7 % (42.0-52.0); Hemoglobin 15.8 g/dl (14.0-18.0); Imm Gran Abs Auto 0.07 X10*3/uL (0.00-0.03); Imm Gran Pct Auto 1.4 % (0.0-0.4); Lymphocytes Absolute Auto 0.8 X10*3/uL (1.2-4.9); Lymphocytes Percent Auto 15.4 % (20-40); Mean Corpuscular HGB Conc 33.8 g/dl (31.0-36.0); Mean Corpuscular Hemoglobin 31.9 pg (27.0-33.0); Mean Corpuscular Volume 94.3 fL (80.0-98.0); Monocytes Absolute Auto 0.3 X10*3/uL (0.1-1.2); Monocytes Percent Auto 6.4 % (2-11); Neutrophils Absolute Auto 3.9 x10*3/uL (2.0-8.3); Neutrophils Percent Auto 75.4 % (45-73); Red Blood Count 4.95 X10*6/uL (4.60-5.80); Red Cell Distribution Width 15.9 % (11.0-16.0); White Blood Count 5.1 X10*3/uL (4.8-10.8)
[2023-07-27 09:57] LABS: Appearance Urine Clear; Color Urine Dark Yellow; Glucose Urine UA Negative (Negative); Leukocyte Esterase Urine Negative (Negative); Nitrite Urine Negative (Negative); PH 5.5 (5.0-9.0); Specific Gravity - Urine 1.025 (1.005-1.025); UMIC TRIGGER UACC YES; Urine Blood Small (1+) (Negative); Urine Ketones 80 mg/dL (Negative); Urine Protein 300 (3+) mg/dL (Neg-Trace)
[2023-07-27 10:12] LABS: Bacteria Urine None Seen (None Seen); RBC Urine 0-2 /HPF (0-2); Squamous Epithelial Cell Urine 0-2 /HPF (0-2); WBC Urine 0-5 /HPF (0-5)
[2023-07-27 10:13] LABS: Amphetamine Screen Urine Not Detected (Not Detect); Barbiturates, Urine Not Detected (Not Detect); Benzodiazepines Screen Urine Not Detected (Not Detect); Cannabinoid Screen Urine Not Detected (Not Detect); Cocaine Screen Urine Not Detected (Not Detect); Fentanyl, urine Not Detected (Not Detect); Opiate Screen Urine Not Detected (Not Detect); Phencyclidine Screen Urine Not Detected (Not Detect)
[2023-07-27 10:19] LABS: Mean Platelet Volume 8.6 fL (9.4-12.4); Platelet Count 87 X10*3/uL (160-400)
[2023-07-27 10:27] LABS: Alanine Aminotransferase 50 U/L (0-40); Albumin Level 4.4 g/dL (3.5-5.0); Alkaline Phosphatase 78 U/L (39-117); Anion Gap 29 (12-20); Aspartate Amino Transferase 78 U/L (5-37); Bilirubin Total 0.7 mg/dL (0.0-1.0); Blood Urea Nitrogen 20 mg/dL (9-16); Calcium 8.8 mg/dL (8.4-10.2); Carbon Dioxide 19 mmol/L (22-29); Chloride 96 mmol/L (96-108); Creatinine Clr Calc Pharmacy 94.6; Estimated Glomerular Filt Rate > 60; Ethanol 316 mg/dL; Glucose Random 100 mg/dL (60-115); Magnesium 1.9 mg/dL (1.6-2.6); Potassium 3.9 mmol/L (3.3-5.1); Sodium 140 mmol/L (135-145); Total Protein 6.8 g/dL (6.5-8.0)
[2023-07-27 10:36] LABS: Acetaminophen LAB < 17 mcg/mL (<30); Salicylate < 5.0 mg/dL (15-30)
--- NOTE | 2023-07-27 10:56 | ED_ITS ---
HPI - General Adult General Chief complaint: ETOH/Substance Use Stated complaint: HEAVY ETOH USE X4 DAYS,WANTS HELP PER EMS Time Seen by Provider: 07/27/23 08:39 Source: patient Mode of arrival: ambulatory Limitations: no limitations History of Present Illness HPI narrative: 62-year-old male presents with EMS for acute alcohol intoxication reports binge drinking and would like to go to Detox facility. Denies suicidal and homicidal ideation. No medical complaints. Patient unsure if he has fallen poor historian. Patient uncooperative, not following commands, screaming at staff members. Related Data Home Medications Medication Instructions Recorded Confirmed atorvastatin 40 mg tablet 40 mg PO BEDTIME 04/03/23 05/07/23 escitalopram oxalate 10 mg tablet 10 mg PO QAM 04/03/23 05/07/23 hydroxyzine HCl 25 mg tablet 25 - 50 mg PO BID PRN Anxiety 04/03/23 05/07/23 meloxicam 7.5 mg tablet 7.5 mg PO DAILY PRN moderate pain 04/03/23 05/07/23 multivitamin 1 tab PO DAILY 04/03/23 05/07/23 nicotine (polacrilex) 4 mg gum 4 mg PO Q4H PRN Nicotine Cravings 04/03/23 05/07/23 terbinafine HCl 250 mg tablet 250 mg PO QAM 04/03/23 05/07/23 apixaban 5 mg tablet (Eliquis) 5 mg PO DAILY 05/07/23 05/07/23 turmeric 400 mg capsule 1,600 mg PO DAILY 05/07/23 05/07/23 Allergies Allergy/AdvReac Type Severity Reaction Status Date / Time pollen extracts [POLLEN] Allergy Unknown UNKNOWN Verified 03/14/23 18:08 Review of Systems 2 Review of Systems: Yes Unobtainable due to mental status PMFSH Past Medical History Attestation statement: The following information was validated with the patient. Source: old records reviewed and nursing notes reviewed Social History Social History Alcohol intake: current Alcohol intake frequency: 3 or more drinks per day Alcohol type: hard liquor Smoked in Last 30 Days: Yes Use of substances other than those prescribed or required for medical reasons: No Advance Directives: No Advance Directives Information Provided: No Physical Exam ED Vital Signs: Vital Signs - 24 hr 07/27/23 12:13 07/27/23 17:19 07/27/23 20:27 Temperature 98.2 F Pulse Rate 93 99 82 Respiratory Rate 14 16 18 Blood Pressure 139/88 117/72 131/78 Pulse Oximetry 96 96 93 Oxygen Delivery Method Room Air Room Air Room Air 07/28/23 00:38 07/28/23 02:16 07/28/23 05:17 Temperature 98.1 F Pulse Rate 64 67 61 Respiratory Rate 19 16 18 Blood Pressure 126/76 125/77 131/82 Pulse Oximetry 93 92 92 Oxygen Delivery Method Room Air Room Air Room Air 07/28/23 07:40 Temperature Pulse Rate 61 Respiratory Rate 14 Blood Pressure 139/85 Pulse Oximetry 96 Oxygen Delivery Method Room Air BMI result Body Mass Index 26.6 vss Appearance: Alert.? Oriented X3.? No acute distress.? Head: Normocephalic, atraumatic, no step-offs or deformities Eyes: Pupils equal, round and reactive to light.? CVS: Normal heart rate and rhythm.? Pulses normal.? Respiratory: No respiratory distress.? Breath sounds normal.? Abdomen: Soft and nontender.? Skin: Skin warm and dry.? Normal skin color.? Normal skin turgor.? Extremities: No lower extremity edema.? No calf ttp. 5/5 strength to bilateral upper and lower extremities Back: No midline tenderness, no C-spine tenderness, full range of motion, no CVA tenderness bilaterally Neuro: Oriented X 3.? No motor deficit.? No sensory deficit. CN 2-12 intact Course Reevaluation(s) Reevaluation #1: CBC w/o anemia or leukocytosis. Patient's platelet count 87 deviating from his baseline. Chemistry with no acute findings requiring intervention anion gap secondary to alcohol, BUN elevated secondary to poor p.o. intake/dehydration. Slightly elevated transaminases likely secondary to ethanol. UA without infection. Ethanol level 316. Urine toxicology negative. Salicylates, acetaminophen negative. Bilateral low lung volumes noted on chest x-ray, elevated right hemidiaphragm. Bronchopulmonary vascular crowding noted. No pneumothorax. Midline trachea. CT head with no acute findings. No evidence of acute territorial infarct or hemorrhage. Patient's chest x-ray with a few findings however no upper respiratory symptoms at this time. Patient was seen by the recovery team there are currently no detox beds available. Plan is for sobriety and for patient to be discharged. No suicidal or homicidal ideation, no need for care team evaluation. Time: 15:04 Reevaluation #2: 07/28/23-- physician observation continued. Patient received Ativan and Zofran early this morning, resting comfortably. CIWA was 6. Recovery evaluated patient and she has ATS bed search Time: 08:42 Reevaluation #3: End physician observation: The recovery team states that there are no detox beds available at this time. The patient will be discharged with a list of detox programs to call and get into detox when there is a bed available. Time: 08:53 Medications Administered Discontinued Medications Generic Name Dose Route Start Last Admin Trade Name Silvina PRN Reason Stop Dose Admin Lorazepam 2 mg 07/27/23 20:14 07/27/23 20:25 Lorazepam 1 Mg Tablet PO 07/27/23 20:15 2 mg ONCE ONE Administration Ondansetron HCl 4 mg 07/27/23 20:21 07/27/23 20:26 Ondansetron Odt 4 Mg Tab.Rapdis TRANSLINGU 07/27/23 20:22 4 mg ONCE ONE Administration Medical Decision Making Medical Decision Making [facility] Narrative: 62-year-old male presents status post binge drinking poor historian. Not SI or HI. Looking for detox Physical exam benign however patient does appear intoxicated smells like alcohol. Alert and oriented x4. Following commands. History and physical exam concerning for acute alcohol intoxication possible polysubstance abuse. Will rule out metabolic derangements. No signs of trauma to head, neck, chest, abdomen or pelvis will scan head however due to unclear if fall Plan at this time medical clearance evaluation by behavioral health team. Differential Diagnosis Differential Diagnoses: The differential diagnosis associated with the presentation includes History and physical exam concerning for acute alcohol intoxication possible polysubstance abuse. Will rule out metabolic derangements. No signs of trauma to head, neck, chest, abdomen or pelvis will scan head however due to unclear if fall Admission/Observation Consideration of admission/observation: Escalation of care including admission/observation considered unlikely Lab Data [facility] Lab Attestation statement: I reviewed the patient's lab results. 07/27/23 09:36 07/27/23 09:36 Labs: Lab Results 07/27/23 Range/Units 09:36 WBC 5.1 (4.8-10.8) X10*3/uL RBC 4.95 (4.60-5.80) X10*6/uL Hgb 15.8 (14.0-18.0) g/dl Hct 46.7 (42.0-52.0) % MCV 94.3 (80.0-98.0) fL MCH 31.9 (27.0-33.0) pg MCHC 33.8 (31.0-36.0) g/dl RDW 15.9 (11.0-16.0) % Plt Count 87 L D (160-400) X10*3/uL MPV 8.6 L (9.4-12.4) fL Immature Gran % (Auto) 1.4 H (0.0-0.4) % Neut % (Auto) 75.4 H (45-73) % Lymph % (Auto) 15.4 L (20-40) % [place] % (Auto) 6.4 (2-11) % Eos % (Auto) 0.6 (0-4) % Baso % (Auto) 0.8 (0-2) % Lymph # (Auto) 0.8 L (1.2-4.9) X10*3/uL [place] # (Auto) 0.3 (0.1-1.2) X10*3/uL Eos # (Auto) 0.0 (0.0-0.4) X10*3/uL Baso # (Auto) 0.0 (0.0-0.2) X10*3/uL Abs Immat Gran (auto) 0.07 H (0.00-0.03) X10*3/uL Absolute Neuts (auto) 3.9 (2.0-8.3) x10*3/uL Absolute Nucleated RBC 0.000 (0.0-0.012) X10*3/uL Nucleated RBC % (auto) 0.0 (0.0-0.2) /100WBC Sodium 140 (135-145) mmol/L Potassium 3.9 (3.3-5.1) mmol/L Chloride 96 (96-108) mmol/L Carbon Dioxide 19 L (22-29) mmol/L Anion Gap 29 H (12-20) BUN 20 H (9-16) mg/dL Creatinine 0.82 (0.5-1.4) mg/dL Estim Creat Clear Calc 94.6 Estimated GFR > 60 Random Glucose 100 (60-115) mg/dL Calcium 8.8 (8.4-10.2) mg/dL Magnesium 1.9 (1.6-2.6) mg/dL Total Bilirubin 0.7 (0.0-1.0) mg/dL AST 78 H (5-37) U/L ALT 50 H (0-40) U/L Alkaline Phosphatase 78 (39-117) U/L Total Protein 6.8 (6.5-8.0) g/dL Albumin 4.4 (3.5-5.0) g/dL Urine Color Dark Yellow Urine Appearance Clear Urine pH 5.5 (5.0-9.0) Ur Specific [place] 1.025 (1.005-1.025) Urine Protein 300 (3+) H (Neg-Trace) mg/dL Urine Glucose (UA) Negative (Negative) mg/dL Urine Ketones 80 (Negative) mg/dL Urine Blood Small (1+) H (Negative) Urine Nitrite Negative (Negative) Ur Leukocyte Esterase Negative (Negative) Urine RBC 0-2 (0-2) /HPF Urine WBC 0-5 (0-5) /HPF Ur Squamous Epith Cells 0-2 (0-2) /HPF Urine Bacteria None Seen (None Seen) Hyaline Casts 3-5 (0-2) /LPF Salicylates < 5.0 L (15-30) mg/dL Urine Opiates Screen Not Detected (Not Detect) Urine Fentanyl Screen Not Detected (Not Detect) Acetaminophen < 17 (<30) mcg/mL Ur Barbiturates Screen Not Detected (Not Detect) Ur Phencyclidine Scrn Not Detected (Not Detect) Ur Amphetamines Screen Not Detected (Not Detect) U Benzodiazepines Scrn Not Detected (Not Detect) Urine Cocaine Screen Not Detected (Not Detect) U Marijuana (THC) Screen Not Detected (Not Detect) Ethyl Alcohol 316 H* mg/dL Core Measures AMI core measures followed: Yes Measure exclusions: not indicated Critical Care Time Critical Care Time Critical Care Time: No Discharge Plan Discharge Clinical Impression: Alcoholic intoxication Patient Disposition: Home, Self-Care Additional Instructions: There are no detox beds available at this time. We are sending you home with a list of detox facilities. Call these facilities and see if you can get the next available detox bed. Continue taking medications as prescribed by your providers. Follow-up with your doctor in 2 days. Please return to the emergency department if your symptoms get worse or if you develop any symptoms that are concerning to you. Prescriptions: No Action multivitamin Tablet 1 tab PO DAILY atorvastatin 40 mg tablet 40 mg PO BEDTIME meloxicam 7.5 mg tablet 7.5 mg PO DAILY PRN (Reason: moderate pain) terbinafine HCl 250 mg tablet 250 mg PO QAM nicotine (polacrilex) 4 mg gum 4 mg PO Q4H PRN (Reason: Nicotine Cravings) hydroxyzine HCl 25 mg tablet 25 - 50 mg PO BID PRN (Reason: Anxiety) escitalopram oxalate 10 mg tablet 10 mg PO QAM Eliquis 5 mg tablet 5 mg PO DAILY turmeric 400 mg Capsule 1,600 mg PO DAILY
[2023-07-27 12:13] VITALS: BP 139/88; PULSE 93; RESP 14; O2SAT 96
--- NOTE | 2023-07-27 13:54 | MHC.RECOVSUP ---
Addendum entered by Benigno Orourke 07/27/23 14:50: ATS bed search exhausted at this time. Pt to follow up from the community. Original Note: Met with pt in ED12 who is here fore [facility]. Pt reports drinking about $100 of vodka last night and again 4 days ago. At this time pt is interested in ATS as long as he can get transportation there. ATS bed search in process.
[2023-07-27 17:19] VITALS: BP 117/72; PULSE 99; RESP 16; O2SAT 96
[2023-07-27] MEDS: LORazepam 1 MG TABLET 2 MG PO (20:25)
[2023-07-27] MEDS: Ondansetron ODT 4 MG TAB.RAPDIS TRANSLINGU (20:26)
[2023-07-27 20:27] VITALS: BP 131/78; PULSE 82; RESP 18; TEMP 36.8; O2SAT 93
--- NOTE | 2023-07-27 20:33 | PC.NURSE ---
Pt Ciwa score 11, tremor nausea and some disorientation to date. Patient alert and oriented, pleasant. reports last drink was approximately 0900 today. Reported to Kalyan CORNEJO and given PO ativan and Trans zofran. Some abdominal discomfort at this time, no other concerns at this time.
[2023-07-28 00:38] VITALS: BP 126/76; PULSE 64; RESP 19; TEMP 36.7; O2SAT 93
[2023-07-28 02:16] VITALS: BP 125/77; PULSE 67; RESP 16; O2SAT 92
--- NOTE | 2023-07-28 04:45 | PC.NURSE ---
Pt reports feeling better after receiving ativan/zofran and getting sleep. Pt currently resting in bed, snack and drink provided.
[2023-07-28 05:17] VITALS: BP 131/82; PULSE 61; RESP 18; O2SAT 92
[2023-07-28 07:40] VITALS: BP 139/85; PULSE 61; RESP 14; O2SAT 96
--- NOTE | 2023-07-28 08:59 | PHA.MEDREC ---
Pharmacy Consult ? Medication Reconciliation Pharmacy has completed the medication reconciliation. Patient hard of hearing/poor historian. Notes he takes gabapentin 600mg at bedtime for his hip pian, rx not filled since 04/04. He also noted he takes clonidine at bedtime for which there is no claim history for. Patient was asking for nicotine. Also stated he is supposed to be on Eliquis but they won't refill it. Has not been taking his cholesterol medication
== END 2023-07-28 09:57 | disposition home or self-care (01) ==
PROVIDERS: Physician Assistant; Emergency Provider Emergency Medicine Emergency Medical Services; PCP Nurse Practitioner Family
DX: F10.229 Alcohol dependence with intoxication, unspecified (principal); Y90.8 Blood alcohol level of 240 mg/100 ml or more; Z79.899 Other long term (current) drug therapy
CPT/HCPCS: 36415; 70450; 71045; 80053; 80143; 80179; 80307; 81001; 81003; 83735; 85025; 99284

== ENCOUNTER 2023-10-17 11:56 | Emergency (ER) | payer MEDICAID, SELFPAY ==
[2023-10-17 12:08] VITALS: BP 143/82; PULSE 90; O2SAT 94; BMI 26.6
[2023-10-17 12:11] VITALS: BP 143/82; PULSE 90; RESP 16; O2SAT 92
== END 2023-10-17 14:31 | disposition left against medical advice (07) ==
PROVIDERS: Emergency Provider Emergency Medicine
DX: R10.9 Unspecified abdominal pain (principal)
CPT/HCPCS: 99281; 99284

== ENCOUNTER 2023-10-22 15:22 | Emergency (ER) | payer MEDICAID, SELFPAY ==
--- NOTE | ~2023-10-22 | CT_ITS ---
EXAMINATION: CT ABDOMEN AND PELVIS WITH CONTRAST CLINICAL INFORMATION: Lower abdominal pain, nausea and vomiting; history of prior abdominal surgeries (not specified). COMPARISON: None available. TECHNIQUE: Multidetector volumetric images were obtained from the superior aspect of the liver through the pubic symphysis following administration 85 mL of Omnipaque 350 intravenous contrast. Sagittal and coronal reformatted images were obtained on the technologist's workstation. Oral contrast: No This CT examination was performed using dose optimization techniques as appropriate, variously including the following: *Automated exposure control *Adjustment of mA and/or kV according to patient size (this includes techniques or standardized protocols for targeted exams where dose is matched to indication/reason for exam; i.e. extremities or head) *Use of iterative reconstruction technique DLP: 620 mGy-cm FINDINGS: LUNG BASES: The visualized lung bases are unremarkable. LIVER, GALLBLADDER, AND BILIARY TREE: The liver is normal in size, shape, and generally diminished in attenuation. No focal hepatic lesion or biliary ductal dilatation is present. The gallbladder is unremarkable with no evidence of radiopaque gallstones, gallbladder wall thickening, or obvious pericholecystic inflammatory changes. PANCREAS: Unremarkable. SPLEEN: Unremarkable. ADRENAL GLANDS: Unremarkable. KIDNEYS AND URETERS: The kidneys are normal in size, shape, and attenuation. No hydronephrosis, hydroureter, or calculi seen. No perinephric stranding. BLADDER: Partially decompressed and largely obscured by metallic streak artifact from bilateral hip arthroplasties. GASTROINTESTINAL TRACT: The small and large bowel are unremarkable. The appendix is unremarkable. ABDOMINAL WALL: There is a small fat-containing umbilical hernia. There is a healed left paramedian vertical abdominal wall incision. There are small fat-containing bilateral inguinal hernias. LYMPH NODES: Normal. VASCULAR: There is mild aortoiliac atherosclerotic calcification. No abdominal aneurysm or dissection is seen. PELVIC VISCERA: The prostate and seminal vesicles are unremarkable. OSSEOUS STRUCTURES: There is multi-level marked thoracolumbar degenerative disc disease and spondylosis. 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 No acute or aggressive osseous finding is noted. CT/CT abdomen pelvis w IV con IMPRESSION: 1. No bowel obstruction, free intraperitoneal air or abscess is seen. There is no appendicitis or diverticulitis. 2. There is hepatic steatosis. 3. No urinary calculus or obstruction is seen. 4. There is no abdominopelvic mass, free fluid or lymphadenopathy. 5. There are small fat-containing umbilical and bilateral inguinal hernias. 6. There are degenerative changes of the spine. Bilateral hip arthroplasties are noted. There is no acute or aggressive osseous finding. Fleischner guidelines were followed.
[2023-10-22 15:36] VITALS: BP 135/88; BP 190/122; PULSE 80; PULSE 90; RESP 18; TEMP 36.4; O2SAT 92; O2SAT 94; BMI 26.6
--- NOTE | 2023-10-22 16:24 | ED.GENADULT ---
HPI - General Adult General Chief complaint: Abdominal Pain Stated complaint: nausea vomiting Time Seen by Provider: 10/22/23 16:24 Source: patient Limitations: other (Hard of hearing) History of Present Illness HPI narrative: 62-year-old male who has a history of alcohol abuse, presents to the emergency department complaining of a 3 day history of lower abdominal pain. Patient states symptoms began gradually and have been constant. He reports waxing waning intensity. It is primarily located in the lower abdomen. He is urinating without difficulty. He is moving his bowel movements also without difficulty, with his last bowel movement this morning. Patient states he began to have nausea and associated cough today. The cough is nonproductive. Patient states he is having some posttussive vomiting. Patient also reports nausea and vomiting throughout the day. He has had limited p.o. intake over the past 48 hours. Patient does admit to drinking alcohol, with his last drink yesterday, October 21. Patient states he does not drink daily but typically drinks heavy at the beginning of each month. He does not feel like he is in withdrawal at this time. Related Data Home Medications Medication Instructions Recorded Confirmed escitalopram oxalate 10 mg tablet 10 mg PO QAM 04/03/23 07/28/23 hydroxyzine HCl 25 mg tablet 25 - 50 mg PO BEDTIME PRN Anxiety 04/03/23 07/28/23 meloxicam 7.5 mg tablet 7.5 mg PO DAILY PRN moderate pain 04/03/23 07/28/23 nicotine (polacrilex) 4 mg gum 4 mg PO Q4H PRN Nicotine Cravings 04/03/23 07/28/23 terbinafine HCl 250 mg tablet 250 mg PO DAILY 04/03/23 07/28/23 apixaban 5 mg tablet (Eliquis) 5 mg PO DAILY 05/07/23 07/28/23 turmeric 400 mg capsule 1,600 mg PO DAILY 05/07/23 07/28/23 clonidine HCl 0.1 mg tablet 0.1 mg PO BEDTIME PRN Anxiety 07/28/23 07/28/23 gabapentin 600 mg tablet 600 mg PO BEDTIME PRN hip pain 07/28/23 07/28/23 Allergies Allergy/AdvReac Type Severity Reaction Status Date / Time pollen extracts [POLLEN] Allergy Unknown UNKNOWN Verified 10/17/23 12:08 Review of Systems Constitutional: Constitutional: Denies chills, Denies fever(s) and Denies headache(s) Eyes: Eyes: Denies change in vision and Denies other (No redness.) ENT: Denies headache(s), Denies nasal congestion, Denies nasal discharge, Denies neck pain and Denies sore throat Cardiovascular: Cardiovascular: Denies chest pain, Denies palpitations, Denies dyspnea, Denies dyspnea on exertion and Denies orthopnea Respiratory: Respiratory: Reports cough, Denies dyspnea and Denies dyspnea on exertion Gastrointestinal: Gastrointestinal: Reports abdominal pain, Denies melena, Denies hematochezia, Denies constipation, Reports GI cramping, Denies diarrhea, Reports nausea and Reports vomiting Genitourinary: Genitourinary: Denies difficulty urinating, Denies dysuria and Denies urinary urgency Musculoskeletal: Musculoskeletal: Denies back pain, Denies muscle weakness, Denies neck pain and Denies numbness Integumentary/Breasts: Skin/Breast: Denies rash Neurologic: Denies headache(s), Denies focal weakness and Denies numbness Psychiatric: Psychiatric: Denies depression Endocrine: Endocrine: Denies palpitations [facility] Past Medical History [facility] Narrative: Alcohol abuse, abdominal surgery as a child Social History Social History Alcohol intake: current Alcohol intake frequency: a few times a month Alcohol type: hard liquor Smoked in Last 30 Days: No Advance Directives: No Advance Directives Information Provided: No Physical Exam ED Vital Signs: Vital Signs - 24 hr 10/22/23 15:36 10/22/23 19:16 10/22/23 22:28 Temperature 97.6 F 98.8 F 98.4 F Pulse Rate 80 73 72 Respiratory Rate 18 16 14 Blood Pressure 135/88 152/88 H 149/90 H Pulse Oximetry 92 94 94 Oxygen Delivery Method Room Air Room Air Room Air BMI result Body Mass Index 26.6 Const General: cooperative, alert and awake Resp Effort & Inspection: normal respiratory effort Auscultation: clear to auscultation bilaterally GI Other: Abdomen is soft with diffuse lower abdominal tenderness. No rebound or guarding. No peritoneal signs. Course Course Course Narrative: October 23, 2023, 1:45 a.m. Patient resting comfortably at this time. Patient received empiric Ativan for symptom control. He has been resting comfortably and maintaining airway. No evidence of active withdrawal. Awaiting contact for a safe ride home. Patient declining detox bed. Will provide patient with outpatient referrals. Patient confirms that he has been to AA and detox in the past. Medications Administered Discontinued Medications Generic Name Dose Route Start Last Admin Trade Name Freq PRN Reason Stop Dose Admin Diatrizoate Meglum/Diatrizoate Sod 30 ml 10/22/23 20:33 10/22/23 20:33 Diatrizoate Meglumine, Sodium 30 Ml Solution PO 10/22/23 20:34 30 ml ONCE ONE Administration Sodium Chloride 1,000 mls @ 999 mls/hr 10/22/23 17:00 10/22/23 20:32 Ns IV 10/22/23 18:00 Infused .Q1H1M MIGUEL Infusion Iohexol 100 ml 10/22/23 20:31 10/22/23 20:32 Iohexol 350 Mg/Ml 100 Ml Infus..Btl IV 10/22/23 20:32 85 ml ONCE ONE Administration Lorazepam 1 mg 10/22/23 21:55 10/22/23 22:49 Lorazepam 1 Mg Tablet PO 10/22/23 21:56 1 mg ONCE ONE Administration Ondansetron HCl 4 mg 10/22/23 16:59 10/22/23 17:32 Ondansetron Hcl 4 Mg/2 Ml Vial IVPUSH 10/22/23 17:00 4 mg ONCE ONE Administration Medical Decision Making Medical Decision Making [facility] Narrative: 62-year-old male with history of alcohol abuse, and a 3 day history of lower abdominal pain followed by nausea and vomiting. Given the patient's history, will initiate IV fluids and antiemetics. Check abdominal CT. UA. Differential Diagnosis Differential Diagnoses: The differential diagnosis associated with the presentation includes Bowel obstruction Colitis Alcohol withdrawal Pancreatitis Dehydration UTI Lab Data [facility] Lab Attestation statement: I reviewed the patient's lab results. 10/22/23 17:24 10/22/23 17:24 Labs: Lab Results 10/22/23 Range/Units 17:24 WBC 3.2 L (4.8-10.8) X10*3/uL RBC 4.58 L (4.60-5.80) X10*6/uL Hgb 15.0 (14.0-18.0) g/dl Hct 42.2 (42.0-52.0) % MCV 92.1 (80.0-98.0) fL MCH 32.8 (27.0-33.0) pg MCHC 35.5 (31.0-36.0) g/dl RDW 13.4 (11.0-16.0) % Plt Count 122 L D (160-400) X10*3/uL MPV 8.5 L (9.4-12.4) fL Immature Gran % (Auto) 1.6 H (0.0-0.4) % Neut % (Auto) 58.7 (45-73) % Lymph % (Auto) 28.7 (20-40) % [place] % (Auto) 8.8 (2-11) % Eos % (Auto) 1.6 (0-4) % Baso % (Auto) 0.6 (0-2) % Lymph # (Auto) 0.9 L (1.2-4.9) X10*3/uL [place] # (Auto) 0.3 (0.1-1.2) X10*3/uL Eos # (Auto) 0.1 (0.0-0.4) X10*3/uL Baso # (Auto) 0.0 (0.0-0.2) X10*3/uL Abs Immat Gran (auto) 0.05 H (0.00-0.03) X10*3/uL Absolute Neuts (auto) 1.9 L (2.0-8.3) x10*3/uL Absolute Nucleated RBC 0.000 (0.0-0.012) X10*3/uL Nucleated RBC % (auto) 0.0 (0.0-0.2) /100WBC Sodium 143 (135-145) mmol/L Potassium 3.9 (3.3-5.1) mmol/L Chloride 102 (96-108) mmol/L Carbon Dioxide 29 (22-29) mmol/L Anion Gap 16 (12-20) BUN 17 H (9-16) mg/dL Creatinine 0.82 (0.5-1.4) mg/dL Estim Creat Clear Calc 94.6 Estimated GFR > 60 Random Glucose 88 (60-115) mg/dL Calcium 8.7 (8.4-10.2) mg/dL Magnesium 1.9 (1.6-2.6) mg/dL Total Bilirubin 0.5 (0.0-1.0) mg/dL AST 59 H (5-37) U/L ALT 29 (0-40) U/L Alkaline Phosphatase 66 (39-117) U/L Total Protein 6.2 L (6.5-8.0) g/dL Albumin 3.9 (3.5-5.0) g/dL Lipase 30 (8-78) U/L Urine Color Dark Yellow Urine Appearance Clear Urine pH 6.5 (5.0-9.0) Ur Specific [place] 1.020 (1.005-1.025) Urine Protein 30 (1+) H (Neg-Trace) mg/dL Urine Glucose (UA) Negative (Negative) mg/dL Urine Ketones Trace (Negative) mg/dL Urine Blood Negative (Negative) Urine Nitrite Negative (Negative) Ur Leukocyte Esterase Negative (Negative) Urine RBC 0-2 (0-2) /HPF Urine WBC 0-5 (0-5) /HPF Ur Squamous Epith Cells 0-2 (0-2) /HPF Urine Bacteria None Seen (None Seen) Hyaline Casts 0-2 (0-2) /LPF Ethyl Alcohol 178 mg/dL Social Determinants Patient?s care significantly limited by Social Determinants of Health including: Alcoholism and drug addiction in family Discharge Plan Discharge Clinical Impression: Abdominal pain, lower, Alcohol abuse Patient Disposition: Home, Self-Care Instructions: Abuse of Alcohol (ED), Abdominal Pain (ED) Additional Instructions: Avoid excessive alcohol use. Call for detox if you choose on list provided. Follow-up with your primary care provider. Call this week to schedule a follow-up appointment. Return to the emergency department if you have any worsening of symptoms, or any concerns. Get well soon! Prescriptions: No Action meloxicam 7.5 mg tablet 7.5 mg PO DAILY PRN (Reason: moderate pain) terbinafine HCl 250 mg tablet 250 mg PO DAILY nicotine (polacrilex) 4 mg gum 4 mg PO Q4H PRN (Reason: Nicotine Cravings) hydroxyzine HCl 25 mg tablet 25 - 50 mg PO BEDTIME PRN (Reason: Anxiety) escitalopram oxalate 10 mg tablet 10 mg PO QAM Eliquis 5 mg tablet 5 mg PO DAILY turmeric 400 mg Capsule 1,600 mg PO DAILY clonidine HCl 0.1 mg Tablet 0.1 mg PO BEDTIME PRN (Reason: Anxiety) gabapentin 600 mg Tablet 600 mg PO BEDTIME PRN (Reason: hip pain)
[2023-10-22 17:30] LABS: MANUAL DIFF FLAG NO
[2023-10-22] MEDS: ondansetron HCL 4 MG/2 ML VIAL IVPUSH (17:32)
[2023-10-22] MEDS: 0.9 % Sodium Chloride 1,000 ML 999 ML IV (17:32)
[2023-10-22 17:41] LABS: Basophils Percent Auto 0.6 % (0-2); Eosinophils Absolute Auto 0.1 X10*3/uL (0.0-0.4); Eosinophils Percent Auto 1.6 % (0-4); Ethanol 178 mg/dL; Hematocrit 42.2 % (42.0-52.0); Imm Gran Abs Auto 0.05 X10*3/uL (0.00-0.03); Imm Gran Pct Auto 1.6 % (0.0-0.4); Lymphocytes Absolute Auto 0.9 X10*3/uL (1.2-4.9); Lymphocytes Percent Auto 28.7 % (20-40); Mean Corpuscular HGB Conc 35.5 g/dl (31.0-36.0); Mean Corpuscular Hemoglobin 32.8 pg (27.0-33.0); Mean Corpuscular Volume 92.1 fL (80.0-98.0); Mean Platelet Volume 8.5 fL (9.4-12.4); Monocytes Absolute Auto 0.3 X10*3/uL (0.1-1.2); Monocytes Percent Auto 8.8 % (2-11); Neutrophils Absolute Auto 1.9 x10*3/uL (2.0-8.3); Neutrophils Percent Auto 58.7 % (45-73); Platelet Count 122 X10*3/uL (160-400); Red Blood Count 4.58 X10*6/uL (4.60-5.80); Red Cell Distribution Width 13.4 % (11.0-16.0); White Blood Count 3.2 X10*3/uL (4.8-10.8)
[2023-10-22 17:42] LABS: Appearance Urine Clear; Color Urine Dark Yellow; Glucose Urine UA Negative (Negative); Leukocyte Esterase Urine Negative (Negative); Nitrite Urine Negative (Negative); PH 6.5 (5.0-9.0); UMIC TRIGGER UA YES; Urine Blood Negative (Negative); Urine Ketones Trace mg/dL (Negative); Urine Protein 30 (1+) mg/dL (Neg-Trace)
[2023-10-22 17:45] LABS: Alanine Aminotransferase 29 U/L (0-40); Albumin Level 3.9 g/dL (3.5-5.0); Alkaline Phosphatase 66 U/L (39-117); Anion Gap 16 (12-20); Aspartate Amino Transferase 59 U/L (5-37); Bacteria Urine None Seen (None Seen); Bilirubin Total 0.5 mg/dL (0.0-1.0); Blood Urea Nitrogen 17 mg/dL (9-16); Calcium 8.7 mg/dL (8.4-10.2); Carbon Dioxide 29 mmol/L (22-29); Chloride 102 mmol/L (96-108); Creatinine Clr Calc Pharmacy 94.6; Estimated Glomerular Filt Rate > 60; Glucose Random 88 mg/dL (60-115); Hyaline Casts Urine 0-2 /LPF (0-2); Lipase 30 U/L (8-78); Magnesium 1.9 mg/dL (1.6-2.6); Potassium 3.9 mmol/L (3.3-5.1); RBC Urine 0-2 /HPF (0-2); Sodium 143 mmol/L (135-145); Squamous Epithelial Cell Urine 0-2 /HPF (0-2); Total Protein 6.2 g/dL (6.5-8.0); WBC Urine 0-5 /HPF (0-5)
[2023-10-22 19:16] VITALS: BP 152/88; PULSE 73; RESP 16; TEMP 37.1; O2SAT 94
[2023-10-22] MEDS: iohexoL 350 MG/ML 100 ML INFUS..BTL IV (20:32)
[2023-10-22] MEDS: Diatrizoate Meglumine, Sodium 30 ML SOLUTION PO (20:33)
--- NOTE | 2023-10-22 20:41 | PC.NURSE ---
pt denies cp/sob/n/v/d at this time. pt reports 06/[address] scan results. ciwa 5. pt axox4. nad. resting in stretcher watching tv. call chang within reach.
[2023-10-22 22:28] VITALS: BP 149/90; PULSE 72; RESP 14; TEMP 36.9; O2SAT 94
[2023-10-22] MEDS: LORazepam 1 MG TABLET PO (22:49)
== END 2023-10-23 07:16 | disposition home or self-care (01) ==
PROVIDERS: Physician Assistant; Emergency Provider Emergency Medicine
DX: R10.30 Lower abdominal pain, unspecified (principal); F10.10 Alcohol abuse, uncomplicated; Y90.6 Blood alcohol level of 120-199 mg/100 ml; R11.2 Nausea with vomiting, unspecified; Z79.01 Long term (current) use of anticoagulants; Z79.899 Other long term (current) drug therapy
CPT/HCPCS: 36415; 74177; 80053; 80307; 81001; 83690; 83735; 85025; 96361; 96374; 99285; J2405; Q9967

== ENCOUNTER 2023-11-22 10:41 | Inpatient (IN) | payer MEDICAID, SELFPAY ==
--- NOTE | ~2023-11-22 | US_ITS ---
EXAMINATION: US VENOUS ULTRASOUND WITH DOPPLER LOWER EXTREMITY, LEFT CLINICAL INFORMATION: Left lower extremity swelling COMPARISON: None available. TECHNIQUE: Ultrasound of the deep veins is performed from the hip to the calf with compression sonography and color and pulse Doppler assessment. Spectral analysis with color-flow imaging is performed. FINDINGS: There is deep venous thrombosis present involving a large portion of the left lower extremity. Thrombus is present in the peroneal vein. The popliteal vein is noncompressible but color-flow is seen. There is thrombus present throughout the femoral vein as well as the left common femoral vein. US/US venous duplex LE IMPRESSION: DVT left lower extremity. This result will be given to the patient's provider when this has occurred, an addendum will be issued
[2023-11-22 11:46] VITALS: BP 137/90; PULSE 86; RESP 18; TEMP 36.7; O2SAT 95; BMI 26.5
--- NOTE | 2023-11-22 11:47 | ED.LOWEXIN ---
HPI - Extremity Injury (Lower) General Chief Complaint: General Medical Stated Complaint: Swelling left leg Time Seen by Provider: 11/22/23 13:47 Source: patient Mode of arrival: ambulatory History of Present Illness HPI Narrative: 63-year-old male with remote history of left hip surgery and history of prior DVT presents to the emergency room with complaints of worsening left lower extremity pain and swelling that he states his worsened since yesterday and he attributes it to walking. He denies any liver disease but states that he drinks about once a month but binges when he does consume alcohol. He is recently moved to the [facility] from [place]. He denies any associated shortness of breath/chest pain/palpitations. Related Data Home Medications Medication Instructions Recorded Confirmed escitalopram oxalate 10 mg tablet 10 mg PO QAM 04/03/23 07/28/23 hydroxyzine HCl 25 mg tablet 25 - 50 mg PO BEDTIME PRN Anxiety 04/03/23 07/28/23 meloxicam 7.5 mg tablet 7.5 mg PO DAILY PRN moderate pain 04/03/23 07/28/23 nicotine (polacrilex) 4 mg gum 4 mg PO Q4H PRN Nicotine Cravings 04/03/23 07/28/23 terbinafine HCl 250 mg tablet 250 mg PO DAILY 04/03/23 07/28/23 apixaban 5 mg tablet (Eliquis) 5 mg PO DAILY 05/07/23 07/28/23 turmeric 400 mg capsule 1,600 mg PO DAILY 05/07/23 07/28/23 clonidine HCl 0.1 mg tablet 0.1 mg PO BEDTIME PRN Anxiety 07/28/23 07/28/23 gabapentin 600 mg tablet 600 mg PO BEDTIME PRN hip pain 07/28/23 07/28/23 Allergies Allergy/AdvReac Type Severity Reaction Status Date / Time pollen extracts [POLLEN] Allergy Unknown UNKNOWN Verified 10/17/23 12:08 Review of Systems Review of Systems: Pertinent positives and negatives as stated in the [facility] Past Medical History Source: nursing notes reviewed Onset Date is defined in the Problem List Problems that require an onset date and time if occurred within 24 hrs of arrival to the ED Aortic Dissection and Rupture; Neurologic impairment; Cardiopulmonary Arrest; Endotracheal Intubation; Insertion or Replacement of Mechanical Circulatory Assist Device Social History Social History Alcohol intake: current Alcohol intake frequency: a few times a month Alcohol type: hard liquor Advance Directives: No Advance Directives Information Provided: No Physical Exam Vital Signs: Vital Signs: Last Vital Signs Temp 98.4 F 11/22/23 14:18 Pulse 88 11/22/23 14:18 Resp 18 11/22/23 14:18 BP 114/79 11/22/23 14:18 Pulse Ox 93 11/22/23 14:18 O2 Del Method Room Air 11/22/23 14:18 BMI result Body Mass Index 26.3 VITAL SIGNS: Reviewed. GENERAL: Well developed, well nourished, in no acute distress. HEAD: Normocephalic/atraumatic EYES: PERRLA, EOMI EARS: Ext canals without abnormality NOSE: Nares patent bilateral OROPHARYNX: no oral lesions noted, posterior pharynx clear NECK: Supple, no adenopathy LUNGS: Normal breath sounds. No adventitious sounds or accessory muscle use. SpO2<95> CARDIOVASCULAR: Regular rate and rhythm without noted murmurs ABDOMEN: Soft, non-tender, non-distended with bowel sounds. MUSCULOSKELETAL: No tenderness, deformities, or effusions noted on gross inspection. EXTREMITIES: No cyanosis, clubbing or edema. LLE: Please see image below SKIN: Inspection of the skin reveals no rashes NEUROLOGIC: Alert and oriented x 4. Strength and sensation to light touch were grossly intact x 4. Course Course Course Narrative: RME: 63 yo M w/ PMHx CHEVAK, DVT's not currently on anticoagulation presenting to the ED c/o LLE pain and swelling x9 days. denies injury/fall. States typically gets blood clots after any procedure/surgery, most recently on Eliquis over 1 year ago. Denies history of PE, SOB Left lower extremity notably swollen. Neurovascular intact distally Labs, ultrasound ordered Full HPI, ROS and PE to be performed by primary ED provider. Medical Decision Making Medical Decision Making MDM Narrative: 63-year-old male with history and clinical presentation, DDX: Soft tissue trauma, less likely felt to be thrombophlebitis, DVT, no suspicion for acute arterial blockage. I reviewed all investigations and hematologic indices are negative for leukocytosis or left shift, there is a chronically stable thrombocytopenia and no anemia. Coagulation studies are within normal limits. Chemistry indices are grossly within normal limits without evidence of SUJEY or electrolyte/liver enzyme derangements, patient has a chronically elevated AST that appears to be stable and otherwise BNP is undetectable. Venous duplex describes an extensive left lower extremity thrombus with overlying skin changes extensive swelling. 1403: Reaching out to Dr Elizabeth gimenez about int vs outpt initial treatment. 1420: Dr. Johnson agrees with admission as well as initiation heparin. 1431: I discussed case with inpatient hospitalist who accepts admission. Differential Diagnosis Differential Diagnoses: The differential diagnosis associated with the presentation includes Please see the discussion above Admission/Observation Consideration of admission/observation: Escalation of care including admission/observation considered Please see the discussion above Consult Healthcare Provider Management of the patient was discussed with: Hospitalist and Laboratory Animal Caretaker Please see the discussion above Lab Data MDM Lab Attestation statement: I reviewed the patient's lab results. Please see the discussion above 11/22/23 13:13 11/22/23 13:13 Labs: Lab Results 11/22/23 Range/Units 13:13 WBC 4.9 (4.8-10.8) X10*3/uL RBC 4.22 L (4.60-5.80) X10*6/uL Hgb 14.0 (14.0-18.0) g/dl Hct 39.9 L (42.0-52.0) % MCV 94.5 (80.0-98.0) fL MCH 33.2 H (27.0-33.0) pg MCHC 35.1 (31.0-36.0) g/dl RDW 13.7 (11.0-16.0) % Plt Count 119 L (160-400) X10*3/uL MPV 9.1 L (9.4-12.4) fL Immature Gran % (Auto) 0.8 H (0.0-0.4) % Neut % (Auto) 66.1 (45-73) % Lymph % (Auto) 18.1 L (20-40) % Miller % (Auto) 11.9 H (2-11) % Eos % (Auto) 2.7 (0-4) % Baso % (Auto) 0.4 (0-2) % Lymph # (Auto) 0.9 L (1.2-4.9) X10*3/uL Miller # (Auto) 0.6 (0.1-1.2) X10*3/uL Eos # (Auto) 0.1 (0.0-0.4) X10*3/uL Baso # (Auto) 0.0 (0.0-0.2) X10*3/uL Abs Immat Gran (auto) 0.04 H (0.00-0.03) X10*3/uL Absolute Neuts (auto) 3.2 (2.0-8.3) x10*3/uL Absolute Nucleated RBC 0.000 (0.0-0.012) X10*3/uL Nucleated RBC % (auto) 0.0 (0.0-0.2) /100WBC PT 10.7 L (11.1-13.3) SEC INR 0.9 (0.9-1.1) Sodium 140 (135-145) mmol/L Potassium 4.4 (3.3-5.1) mmol/L Chloride 103 (96-108) mmol/L Carbon Dioxide 27 (22-29) mmol/L Anion Gap 14 (12-20) BUN 20 H (9-16) mg/dL Creatinine 0.85 (0.5-1.4) mg/dL Estim Creat Clear Calc 90.1 Estimated GFR > 60 Random Glucose 92 (60-115) mg/dL Calcium 9.6 D (8.4-10.2) mg/dL Total Bilirubin 0.8 (0.0-1.0) mg/dL Direct Bilirubin 0.2 (0.0-0.5) mg/dL AST 40 H (5-37) U/L ALT 27 (0-40) U/L Alkaline Phosphatase 65 (39-117) U/L B-Natriuretic Peptide < 10 (<100) pg/mL Total Protein 6.9 (6.5-8.0) g/dL Albumin 4.3 (3.5-5.0) g/dL Radiology Impression Discussion of test interpretation with radiology: I have reviewed the radiologist's reading. Radiologist Impression: Please see the discussion above External Record Review External record reviewed: Outpatient record, Prior outpatient labs and Prior outpatient radiology Chronic Conditions Patient?s care impacted by: Other Alcohol use disorder Social Determinants Patient?s care significantly limited by Social Determinants of Health including: Alcoholism and drug addiction in family Critical Care Time Critical Care Time Critical Care Time: Yes Total Critical Care Time: 60 Attestation: I personally attest to this time spent taking care of the patient. Discharge Plan Discharge Clinical Impression: DVT (deep venous thrombosis), Phlegmasia cerulea dolens of left lower extremity Patient Disposition: Admitted As Inpatient Prescriptions: No Action meloxicam 7.5 mg tablet 7.5 mg PO DAILY PRN (Reason: moderate pain) terbinafine HCl 250 mg tablet 250 mg PO DAILY nicotine (polacrilex) 4 mg gum 4 mg PO Q4H PRN (Reason: Nicotine Cravings) hydroxyzine HCl 25 mg tablet 25 - 50 mg PO BEDTIME PRN (Reason: Anxiety) escitalopram oxalate 10 mg tablet 10 mg PO QAM Eliquis 5 mg tablet 5 mg PO DAILY turmeric 400 mg Capsule 1,600 mg PO DAILY clonidine HCl 0.1 mg Tablet 0.1 mg PO BEDTIME PRN (Reason: Anxiety) gabapentin 600 mg Tablet 600 mg PO BEDTIME PRN (Reason: hip pain)
[2023-11-22 13:19] LABS: MANUAL DIFF FLAG NO
[2023-11-22 13:23] LABS: Basophils Percent Auto 0.4 % (0-2); Eosinophils Absolute Auto 0.1 X10*3/uL (0.0-0.4); Eosinophils Percent Auto 2.7 % (0-4); Hematocrit 39.9 % (42.0-52.0); Imm Gran Abs Auto 0.04 X10*3/uL (0.00-0.03); Imm Gran Pct Auto 0.8 % (0.0-0.4); Lymphocytes Absolute Auto 0.9 X10*3/uL (1.2-4.9); Lymphocytes Percent Auto 18.1 % (20-40); Mean Corpuscular HGB Conc 35.1 g/dl (31.0-36.0); Mean Corpuscular Hemoglobin 33.2 pg (27.0-33.0); Mean Corpuscular Volume 94.5 fL (80.0-98.0); Mean Platelet Volume 9.1 fL (9.4-12.4); Monocytes Absolute Auto 0.6 X10*3/uL (0.1-1.2); Monocytes Percent Auto 11.9 % (2-11); Neutrophils Absolute Auto 3.2 x10*3/uL (2.0-8.3); Neutrophils Percent Auto 66.1 % (45-73); Platelet Count 119 X10*3/uL (160-400); Red Blood Count 4.22 X10*6/uL (4.60-5.80); Red Cell Distribution Width 13.7 % (11.0-16.0); White Blood Count 4.9 X10*3/uL (4.8-10.8)
[2023-11-22 13:26] LABS: INTERNATIONAL NORM RATIO 0.9 (0.9-1.1); Prothrombin Time 10.7 SEC (11.1-13.3)
[2023-11-22 13:37] LABS: Alanine Aminotransferase 27 U/L (0-40); Albumin Level 4.3 g/dL (3.5-5.0); Alkaline Phosphatase 65 U/L (39-117); Anion Gap 14 (12-20); Aspartate Amino Transferase 40 U/L (5-37); Bilirubin Direct 0.2 mg/dL (0.0-0.5); Bilirubin Total 0.8 mg/dL (0.0-1.0); Blood Urea Nitrogen 20 mg/dL (9-16); Calcium 9.6 mg/dL (8.4-10.2); Carbon Dioxide 27 mmol/L (22-29); Chloride 103 mmol/L (96-108); Creatinine Clr Calc Pharmacy 90.1; Estimated Glomerular Filt Rate > 60; Glucose Random 92 mg/dL (60-115); Potassium 4.4 mmol/L (3.3-5.1); Sodium 140 mmol/L (135-145); Total Protein 6.9 g/dL (6.5-8.0)
[2023-11-22 13:43] LABS: B Type Natriuretic Peptide < 10 pg/mL (<100)
--- NOTE | 2023-11-22 14:15 | PC.NURSE ---
patient left leg swollen, inner thigh has dark redness. bilat pedal pulses palpated. patient is awake and alert, respirations equal and unlabored
[2023-11-22 14:18] VITALS: BP 114/79; PULSE 88; RESP 18; TEMP 36.9; O2SAT 93
[2023-11-22 14:27] VITALS: BMI 26.3
[2023-11-22 14:31] LABS: Partial Thromboplastin Time 31.5 SEC (26.0-36.4)
[2023-11-22 15:05] LABS: Hematocrit 38.2 % (42.0-52.0); Hemoglobin 13.2 g/dl (14.0-18.0); Mean Corpuscular HGB Conc 34.6 g/dl (31.0-36.0); Mean Corpuscular Hemoglobin 32.5 pg (27.0-33.0); Mean Corpuscular Volume 94.1 fL (80.0-98.0); Mean Platelet Volume 8.8 fL (9.4-12.4); Platelet Count 111 X10*3/uL (160-400); Red Blood Count 4.06 X10*6/uL (4.60-5.80); Red Cell Distribution Width 13.5 % (11.0-16.0); White Blood Count 4.6 X10*3/uL (4.8-10.8)
[2023-11-22] MEDS: Heparin Sodium,Porcine 5,000 UNIT/ML VIAL 6500 UNIT IVPUSH (15:05)
[2023-11-22 15:06] LABS: INTERNATIONAL NORM RATIO 0.9 (0.9-1.1); Prothrombin Time 10.9 SEC (11.1-13.3)
[2023-11-22 15:08] LABS: PTT Heparin Drip 30.1 SEC (53-77.9)
[2023-11-22] MEDS: Heparin Sodium,Porcine/1/2NS 25,000 UNIT/250 ML IV.SOLN 11.33 UNIT IVCONT (15:14)
--- NOTE | 2023-11-22 15:20 | PC.NURSE ---
placed two IV Lines #20 in the left wrist and forearm Heparin running 14u/kg/hr 11.33 Ml/hr per MAR patient resting in bed respirations equal and unalabored, patient shows no signs of distress
--- NOTE | 2023-11-22 15:38 | P.HPHOSP_ITS ---
History of Present Illness Date of Service: 11/22/23 Chief Complaint: left leg swelling 63yo M with history of, by his count, 4 postoperative DVTs, the last many years ago and each treated with a 6-month course of anticoagulation, most recently apixaban. He also notes intermittent binge drinking, perhaps bernie a month, but denies history of withdrawals or delirium tremens. He presents with 4 days of worsening left leg swelling and discoloration. No shortness of breath, chest pain, or lightheadedness. No prior PE, just DVTs; these have been both in his left and right legs. No FHx of clotting tendencies. No recent travel but he was trying to do a lot of walking in preparation for getting his left hip replaced in the future but thinks he overdid it; so he took 3 days of bedrest. In the ED, he was found to have extensive LLE DVT including the peroneal vein, femoral vein, and the common femoral vein. He was started on heparin drip. Review of Systems 2 Review of Systems: Yes all other systems are reviewed and are negative [facility] Social History Household Members: None Housing: Apartment Do you presently have visiting nurse or other home services: No Alcohol intake: current Alcohol intake frequency: a few times a month Alcohol type: hard liquor Patient Tobacco Use Status: Former Tobacco user Quit Date: 8 mo ago Tobacco use type: Cigarette Smoked in Last 30 Days: No Patient Interested in Nicotine Replacement: Yes Use of substances other than those prescribed or required for medical reasons: No Currently Displaying Signs/Symptoms of Drug Intoxication Withdrawal: No Have you been hit, kicked, punched, or otherwise hurt by someone within the past year? If so, by whom?: No Do you feel safe in your current relationship?: Yes Are you made to feel afraid or neglected: No Advance Directives: No Advance Directives Information Provided: No Do you have thoughts of harming others: None Do you have a plan to hurt others: No Plan Recently lost weight without trying: No Eating poorly because of decreased appetite: No Nutrition Risks: No Nutritional Risk Poor oral hygiene: No Meds Allergies Allergy/AdvReac Type Severity Reaction Status Date / Time pollen extracts [POLLEN] Allergy Unknown UNKNOWN Verified 10/17/23 12:08 Active Medications: Current Medications Heparin Sodium (Porcine) (Heparin Sodium,Porcine 5,000 Unit/Ml Vial) 3,200 unit 40 unit/kg (3200 unit) IVPUSH PROTOCOL BOLUS PRN; Protocol PRN Reason: 40 unit/kg - Heparin Protocol Heparin Sodium (Porcine) (Heparin Sodium,Porcine 5,000 Unit/Ml Vial) 6,500 unit 80 unit/kg (6500 unit) IVPUSH PROTOCOL BOLUS PRN; Protocol PRN Reason: 80 unit/kg - Heparin Protocol Heparin Sodium/Sodium Chloride (Heparin Sodium,Porcine/1/2ns) 25,000 unit in 250 mls @ 0 mls/hr IVCONT .Q0M MIGUEL; Protocol Last Admin: 11/22/23 15:14 Dose: 14 units/kg/hr, 11.33 mls/hr Home Medications Medication Instructions Recorded Confirmed Last Taken Type escitalopram oxalate 10 mg tablet 10 mg PO QAM 04/03/23 11/22/23 11/22/23 History hydroxyzine HCl 25 mg tablet 50 mg PO BEDTIME 04/03/23 11/22/23 11/21/23 History meloxicam 7.5 mg tablet 7.5 mg PO DAILY moderate pain 04/03/23 11/22/23 11/22/23 History nicotine (polacrilex) 4 mg gum 4 mg PO Q4H PRN Nicotine Cravings 04/03/23 11/22/23 Unknown History turmeric 400 mg capsule 1,600 mg PO DAILY 05/07/23 11/22/23 11/22/23 History multivitamin 1 tab PO DAILY 11/22/23 11/22/23 11/22/23 History naltrexone 50 mg tablet 50 mg PO QAM 11/22/23 11/22/23 11/22/23 History nicotine 21 mg/24 hr daily 1 patch topical DAILY 11/22/23 11/22/23 11/22/23 History transdermal patch Physical Exam 2 Vital Signs and Narrative: Vital Signs: Last Vital Signs Temp 98.4 F 11/22/23 14:18 Pulse 88 11/22/23 14:18 Resp 18 11/22/23 14:18 BP 114/79 11/22/23 14:18 Pulse Ox 93 11/22/23 14:18 O2 Del Method Room Air 11/22/23 14:18 BMI result Body Mass Index 26.3 Gen: in no acute distress HEENT: sclera anicteric, moist mucus membranes Neck: supple Lungs: clear to auscultation bilaterally Heart: regular rate and rhythm, no murmurs Abd: soft, non-tender, non-distended Ext: LLE swollen, discolored Skin: warm/well-perfused Neuro: alert and oriented x3, no focal findings Psych: appropriate affect Results Labs 11/23/23 06:11 11/22/23 13:13 Labs: Laboratory Results - last 24 hr 11/22/23 11/22/23 13:13 14:53 MCV 94.5 94.1 MCH 33.2 H 32.5 MCHC 35.1 34.6 RDW 13.7 13.5 Plt Count 119 L 111 L MPV 9.1 L 8.8 L Immature Gran % (Auto) 0.8 H Neut % (Auto) 66.1 Lymph % (Auto) 18.1 L Thayer % (Auto) 11.9 H Eos % (Auto) 2.7 Baso % (Auto) 0.4 Lymph # (Auto) 0.9 L Thayer # (Auto) 0.6 Eos # (Auto) 0.1 Baso # (Auto) 0.0 Abs Immat Gran (auto) 0.04 H Absolute Neuts (auto) 3.2 Absolute Nucleated RBC 0.000 0.000 Nucleated RBC % (auto) 0.0 0.0 PT 10.7 L 10.9 L INR 0.9 0.9 APTT 31.5 aPTT Heparin Protocol 30.1 L Anion Gap 14 Estim Creat Clear Calc 90.1 Estimated GFR > 60 Random Glucose 92 Calcium 9.6 D Total Bilirubin 0.8 Direct Bilirubin 0.2 AST 40 H ALT 27 Alkaline Phosphatase 65 B-Natriuretic Peptide < 10 Total Protein 6.9 Albumin 4.3 Imaging Radiologist's Impressions: Impressions Venous Duplex 11/22/23 12:08 IMPRESSION: DVT left lower extremity. This result will be given to the patient's provider when this has occurred, an addendum will be issued Assessment and Plan (1) Phlegmasia cerulea dolens of left lower extremity: Status: Acute (2) DVT (deep venous thrombosis): Status: Acute Plan 63yo M with 4 prior postoperative DVTs presenting with 4 days of LLE swelling and found to have extensive LLE DVT with only provoking factor of immobility. DVT - Admit to M/S. IV heparin infusion. Vascular Surgery consultation to consider revascularization procedure. Hematology consultation re oral anticoagulation. At this point would recommend lifelong anticoagulation. Binge drinking - prn CIWA. Addiction Medicine consultation. Awaiting medication reconciliation for continuation of any home meds, though pt states off Eliquis for years by now. VTE prophylaxis - on heparin gtt. dispo - eventual home code status - full I anticipate that the patient will stay at least 2 midnights as an inpatient in the hospital due to the above reasons. It is neither reasonable nor safe to care for them in a less acute setting. Quality Stroke Does the patient have a stroke diagnosis?: No VTE Prior VTE?: Yes VTE Risk Level:: Medical - moderate - high VTE Device Contraindication: N/A - Device Ordered VTE Drug Contraindication: N/A - Med Ordered
[2023-11-22 15:41] VITALS: BP 132/81; PULSE 77; RESP 19; TEMP 36.7; O2SAT 96
--- NOTE | 2023-11-22 16:16 | PC.NURSE ---
pt transitioned to overflow, ambulated from ER stretcher to bed without issue. States he has no pain at this time, CIWA 1. Respirations even and unlabored, skin pwd, alert and oriented x4. Pt offers no complaints at this time. Awaiting bed assignment
--- NOTE | 2023-11-22 16:18 | PHA.MEDREC ---
Pharmacy Consult ? Medication Reconciliation Pharmacy has completed the medication reconciliation. Patient reported medications. Reports 2 tablet of hydroxyzine at night for sleep. Reported using meloxicam daily. Patient reports he stopped taking Eliquis. Yumiko Ruvalcaba, CarolineD
[2023-11-22 19:16] VITALS: BP 131/84; PULSE 86; RESP 18; TEMP 36.6; O2SAT 96
[2023-11-22 19:24] VITALS: BMI 25.8
[2023-11-22] MEDS: hydrOXYzine HCL 50 MG TABLET PO (21:22)
[2023-11-22 21:27] LABS: PTT Heparin Drip 71.5 SEC (53-77.9)
[2023-11-23] VITALS (7 sets, daily range): BP systolic 119–155; BP diastolic 74–91; PULSE 68–95; RESP 16–18; TEMP 36.1–36.7; O2SAT 93–98
--- NOTE | 2023-11-23 00:47 | PC.NURSE ---
11/22 2100 ptt 71.5 wnl. not change made to heparin drip per protocol. next ptt placed for 11/23/23 0300. will cont to monitor
[2023-11-23 03:25] LABS: PTT Heparin Drip 63.3 SEC (53-77.9)
--- NOTE | 2023-11-23 05:45 | PC.NURSE ---
ptt x2 wnl, no change made to heparin drip. dr de la vega notified. will cont to monitor
[2023-11-23 06:19] LABS: MANUAL DIFF FLAG NO
[2023-11-23 06:30] LABS: Eosinophils Absolute Auto 0.3 X10*3/uL (0.0-0.4); Eosinophils Percent Auto 7.8 % (0-4); Hematocrit 35.6 % (42.0-52.0); Hematocrit 35.7 % (42.0-52.0); Hemoglobin 12.5 g/dl (14.0-18.0); Imm Gran Abs Auto 0.05 X10*3/uL (0.00-0.03); Imm Gran Pct Auto 1.2 % (0.0-0.4); Lymphocytes Absolute Auto 1.1 X10*3/uL (1.2-4.9); Lymphocytes Percent Auto 24.9 % (20-40); Mean Corpuscular HGB Conc 35.1 g/dl (31.0-36.0); Mean Corpuscular Hemoglobin 33.2 pg (27.0-33.0); Mean Corpuscular Volume 94.7 fL (80.0-98.0); Mean Corpuscular Volume 94.9 fL (80.0-98.0); Mean Platelet Volume 9.2 fL (9.4-12.4); Mean Platelet Volume 9.3 fL (9.4-12.4); Monocytes Absolute Auto 0.6 X10*3/uL (0.1-1.2); Neutrophils Absolute Auto 2.2 x10*3/uL (2.0-8.3); Neutrophils Percent Auto 51.1 % (45-73); Platelet Count 107 X10*3/uL (160-400); Platelet Count 113 X10*3/uL (160-400); Red Blood Count 3.76 X10*6/uL (4.60-5.80); Red Cell Distribution Width 13.6 % (11.0-16.0); Red Cell Distribution Width 13.7 % (11.0-16.0); White Blood Count 4.2 X10*3/uL (4.8-10.8)
--- NOTE | 2023-11-23 06:35 | MHC.PIE ---
p; pt in room yelling at staff for food, note; pt was educated on [id number] last night on arrival on unit from ed. now pt trying to put his own nicotine patch from home, when informed of needing dr castro for nicotine patch, pt became more angry and told this literary writer to get out. i; dr de la vega notified e; will inform next shift, will cont to [facility]
[2023-11-23 06:39] LABS: Prothrombin Time 11.8 SEC (11.1-13.3)
[2023-11-23] MEDS: Nicotine 21 MG PATCH.TD24 TRANSDERMA (08:54)
[2023-11-23 09:52] LABS: PTT Heparin Drip 54.6 SEC (53-77.9)
--- NOTE | 2023-11-23 10:19 | PM.CNGS ---
History of Present Illness Consult details Consult date: 11/22/23 Reason for consult: other (dvt) Narrative: Complex 63-year-old gentleman with acute onset DVT. He had been ambulating in preparation for hip surgery but had felt some strain. He had been on 3 days of bedrest. Developed a significant left lower extremity DVT. 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 Does have a history significant for drinking. His left leg was significantly swollen and tender. He presented to the emergency room for evaluation and treatment. Has begun heparin therapeutic anticoagulation. Review of Systems Review of Systems: Yes all other systems are reviewed and are negative Constitutional: Constitutional: Reports no additional constitutional complaints ENT: Reports Normal hearing present Cardiovascular: Cardiovascular: Denies chest pain, Denies chest pain at rest, Denies chest pain with activity and Denies pedal edema Respiratory: Respiratory: Denies cough Gastrointestinal: Gastrointestinal: Denies abdominal pain Musculoskeletal: Musculoskeletal: Denies abnormal gait, Denies muscle cramps and Denies radiating pain into limb Integumentary/Breasts: Skin/Breast: Denies skin ulcer and Denies wounds Neurologic: Reports Normal hearing present and Denies abnormal gait Psychiatric: Psychiatric: Reports no additional psychiatric complaints PMFSH Social History Social History Household Members: None Housing: Apartment Do you presently have visiting nurse or other home services: No Alcohol intake: current Alcohol intake frequency: a few times a month Alcohol type: hard liquor Patient Tobacco Use Status: Former Tobacco user Quit Date: 8 mo ago Tobacco use type: Cigarette Smoked in Last 30 Days: No Patient Interested in Nicotine Replacement: Yes Use of substances other than those prescribed or required for medical reasons: No Currently Displaying Signs/Symptoms of Drug Intoxication Withdrawal: No Have you been hit, kicked, punched, or otherwise hurt by someone within the past year? If so, by whom?: No Do you feel safe in your current relationship?: Yes Are you made to feel afraid or neglected: No Advance Directives: No Advance Directives Information Provided: No Do you have thoughts of harming others: None Do you have a plan to hurt others: No Plan Recently lost weight without trying: No Eating poorly because of decreased appetite: No Nutrition Risks: No Nutritional Risk Poor oral hygiene: No Meds Allergies Allergy/AdvReac Type Severity Reaction Status Date / Time pollen extracts [POLLEN] Allergy Unknown UNKNOWN Verified 10/17/23 12:08 Active Medications: Current Medications Acetaminophen (Acetaminophen 325 Mg Tablet) 650 mg PO Q6H PRN PRN Reason: Pain, Mild (Pain Scale 1-3) Heparin Sodium (Porcine) (Heparin Sodium,Porcine 5,000 Unit/Ml Vial) 3,200 unit 40 unit/kg (3200 unit) IVPUSH PROTOCOL BOLUS PRN; Protocol PRN Reason: 40 unit/kg - Heparin Protocol Heparin Sodium (Porcine) (Heparin Sodium,Porcine 5,000 Unit/Ml Vial) 6,500 unit 80 unit/kg (6500 unit) IVPUSH PROTOCOL BOLUS PRN; Protocol PRN Reason: 80 unit/kg - Heparin Protocol Hydroxyzine HCl (Hydroxyzine Hcl 50 Mg Tablet) 50 mg PO BEDTIME [facility] Last Admin: 11/22/23 21:22 Dose: 50 mg Heparin Sodium/Sodium Chloride (Heparin Sodium,Porcine/1/2ns) 25,000 unit in 250 mls @ 0 mls/hr IVCONT .Q0M [facility]; Protocol Last Admin: 11/22/23 15:14 Dose: 14 units/kg/hr, 11.33 mls/hr Sodium Chloride (Ns) 1,000 mls @ 100 mls/hr IVCONT .Q10H [facility] Last Admin: 11/23/23 09:06 Dose: Not Given Multivitamins/Vitamin C (Multivitamin Tablet) 1 tab PO DAILY [facility] Last Admin: 11/23/23 08:55 Dose: Not Given Naltrexone HCl (Naltrexone Hcl 50 Mg Tablet) 50 mg PO DAILY@0900 [facility] Last Admin: 11/23/23 08:55 Dose: Not Given Nicotine (Nicotine 21 Mg Patch.Td24) 21 mg TRANSDERMA DAILY [facility] Last Admin: 11/23/23 09:05 Dose: Not Given Nicotine Polacrilex (Nicotine Polacrilex 2 Mg Gum) 4 mg BUCCAL Q4H PRN PRN Reason: Nicotine Cravings Ondansetron HCl (Ondansetron Hcl 4 Mg/2 Ml Vial) 4 mg IVPUSH Q8H PRN PRN Reason: Nausea and Vomiting Sodium Chloride (0.9 % Sodium Chloride Flush 3 Ml Syringe) 3 ml IVFLUSH QSHIFT [facility] Last Admin: 11/23/23 08:55 Dose: Not Given Home Medications Medication Instructions Recorded Confirmed Last Taken Type escitalopram oxalate 10 mg tablet 10 mg PO QAM 04/03/23 11/22/23 11/22/23 History hydroxyzine HCl 25 mg tablet 50 mg PO BEDTIME 04/03/23 11/22/23 11/21/23 History meloxicam 7.5 mg tablet 7.5 mg PO DAILY moderate pain 04/03/23 11/22/23 11/22/23 History nicotine (polacrilex) 4 mg gum 4 mg PO Q4H PRN Nicotine Cravings 04/03/23 11/22/23 Unknown History turmeric 400 mg capsule 1,600 mg PO DAILY 05/07/23 11/22/23 11/22/23 History multivitamin 1 tab PO DAILY 11/22/23 11/22/23 11/22/23 History naltrexone 50 mg tablet 50 mg PO QAM 11/22/23 11/22/23 11/22/23 History nicotine 21 mg/24 hr daily 1 patch topical DAILY 11/22/23 11/22/23 11/22/23 History transdermal patch Physical Exam Vital Signs: Vital Signs: Last Vital Signs Temp 97 F 11/23/23 08:00 Pulse 95 11/23/23 08:00 Resp 18 11/23/23 08:00 BP 155/90 H 11/23/23 08:00 Pulse Ox 93 11/23/23 08:00 O2 Del Method Room Air 11/23/23 08:00 BMI result Body Mass Index 25.8 Const: General: cooperative, healthy appearing and comfortable Orientation/consciousness: oriented to person, oriented to place and oriented to time HEENT: Head: Yes normal to inspection Neck: Neck: Yes normal visual inspection Carotids: no bruits Chest: Chest palpation & inspection: normal inspection of the chest Resp: Effort & Inspection: normal respiratory effort and able to speak in complete sentences Auscultation: clear to auscultation bilaterally, no crackles, no rales, no rhonchi and no wheezes Cardio: Rate: regular rate Rhythm: regular rhythm Heart sounds: S1 normal heart sound present and S2 normal heart sound present Bruits: no carotid bruits Peripheral pulses: Peripheral pulses 2+ throughout GI: Inspection: Yes normal to inspection Skin: Wounds: no wounds Hair: normal Neuro: General: oriented to person, oriented to place and oriented to time Cranial nerves: Yes CN's II-XII intact bilaterally and Yes Normal hearing present Cognition (Neuro): normal cognition Motor exam (neuro): 5/5 motor strength present throughout Extrem: Other: venous exam: No significant superficial varicosities or spider telangiectasias, minimal edema General: No clubbing, No cyanosis and No edema Psych: Appearance: grossly normal Mental Status: mental status grossly normal Speech and movement: Normal speech and movement present Results Labs 11/23/23 06:11 11/22/23 13:13 Labs: Abnormal lab results 11/22/23 11/22/23 11/23/23 Range/Units 13:13 14:53 06:11 WBC 4.6 L 4.2 L (4.8-10.8) X10*3/uL RBC 4.22 L 4.06 L (4.60-5.80) X10*6/uL Hgb 13.2 L (14.0-18.0) g/dl Hct 39.9 L 38.2 L (42.0-52.0) % MCH 33.2 H (27.0-33.0) pg Plt Count 119 L 111 L (160-400) X10*3/uL MPV 9.1 L 8.8 L (9.4-12.4) fL Immature Gran % (Auto) 0.8 H (0.0-0.4) % Lymph % (Auto) 18.1 L (20-40) % [place] % (Auto) 11.9 H (2-11) % Eos % (Auto) (0-4) % Lymph # (Auto) 0.9 L (1.2-4.9) X10*3/uL Abs Immat Gran (auto) 0.04 H (0.00-0.03) X10*3/uL PT 10.7 L 10.9 L (11.1-13.3) SEC aPTT Heparin Protocol 30.1 L (53-77.9) SEC BUN 20 H (9-16) mg/dL AST 40 H (5-37) U/L 11/23/23 11/23/23 11/23/23 Range/Units 06:11 06:11 06:11 WBC 4.2 L (4.8-10.8) X10*3/uL RBC 3.76 L 3.76 L (4.60-5.80) X10*6/uL Hgb 12.5 L 12.5 L (14.0-18.0) g/dl Hct 35.6 L (42.0-52.0) % MCH (27.0-33.0) pg Plt Count (160-400) X10*3/uL MPV (9.4-12.4) fL Immature Gran % (Auto) (0.0-0.4) % Lymph % (Auto) (20-40) % [place] % (Auto) (2-11) % Eos % (Auto) (0-4) % Lymph # (Auto) (1.2-4.9) X10*3/uL Abs Immat Gran (auto) (0.00-0.03) X10*3/uL PT (11.1-13.3) SEC aPTT Heparin Protocol (53-77.9) SEC BUN (9-16) mg/dL AST (5-37) U/L 11/23/23 11/23/23 11/23/23 Range/Units 06:11 06:11 06:11 WBC (4.8-10.8) X10*3/uL RBC (4.60-5.80) X10*6/uL Hgb (14.0-18.0) g/dl Hct 35.7 L (42.0-52.0) % MCH 33.2 H 33.2 H (27.0-33.0) pg Plt Count 107 L 113 L (160-400) X10*3/uL MPV 9.3 L (9.4-12.4) fL Immature Gran % (Auto) (0.0-0.4) % Lymph % (Auto) (20-40) % [place] % (Auto) (2-11) % Eos % (Auto) (0-4) % Lymph # (Auto) (1.2-4.9) X10*3/uL Abs Immat Gran (auto) (0.00-0.03) X10*3/uL PT (11.1-13.3) SEC aPTT Heparin Protocol (53-77.9) SEC BUN (9-16) mg/dL AST (5-37) U/L 11/23/23 Range/Units 06:11 WBC (4.8-10.8) X10*3/uL RBC (4.60-5.80) X10*6/uL Hgb (14.0-18.0) g/dl Hct (42.0-52.0) % MCH (27.0-33.0) pg Plt Count (160-400) X10*3/uL MPV 9.2 L (9.4-12.4) fL Immature Gran % (Auto) 1.2 H (0.0-0.4) % Lymph % (Auto) (20-40) % [place] % (Auto) 14.0 H (2-11) % Eos % (Auto) 7.8 H (0-4) % Lymph # (Auto) 1.1 L (1.2-4.9) X10*3/uL Abs Immat Gran (auto) 0.05 H (0.00-0.03) X10*3/uL PT (11.1-13.3) SEC aPTT Heparin Protocol (53-77.9) SEC BUN (9-16) mg/dL AST (5-37) U/L Short CBC 11/22/23 11/22/23 11/23/23 Range/Units 13:13 14:53 06:11 WBC 4.9 4.6 L 4.2 L (4.8-10.8) X10*3/uL Hgb 14.0 13.2 L (14.0-18.0) g/dl Hct 39.9 L 38.2 L (42.0-52.0) % Plt Count 119 L 111 L (160-400) X10*3/uL 11/23/23 11/23/23 11/23/23 Range/Units 06:11 06:11 06:11 WBC 4.2 L (4.8-10.8) X10*3/uL Hgb 12.5 L 12.5 L (14.0-18.0) g/dl Hct 35.6 L 35.7 L (42.0-52.0) % Plt Count 107 L (160-400) X10*3/uL 11/23/23 Range/Units 06:11 WBC (4.8-10.8) X10*3/uL Hgb (14.0-18.0) g/dl Hct (42.0-52.0) % Plt Count 113 L (160-400) X10*3/uL BMP 11/22/23 13:13 Sodium 140 Potassium 4.4 Chloride 103 Carbon Dioxide 27 BUN 20 H Creatinine 0.85 Calcium 9.6 D Liver Function 11/22/23 Range/Units 13:13 Total Bilirubin 0.8 (0.0-1.0) mg/dL Direct Bilirubin 0.2 (0.0-0.5) mg/dL AST 40 H (5-37) U/L ALT 27 (0-40) U/L Alkaline Phosphatase 65 (39-117) U/L Albumin 4.3 (3.5-5.0) g/dL All other labs normal. Assessment and Plan (1) DVT (deep venous thrombosis): Qualifiers: DVT location: lower extremity Affected thrombotic vein of extremity: femoral Chronicity: acute Laterality: left Qualified Code(s): I82.412 - Acute embolism and thrombosis of left femoral vein Status: Acute Plan In short patient has acute on chronic left lower extremity DVT. Due to the extent thrombus will require left lower extremity mechanical venous thrombectomy. Risks benefits complications of the procedure were discussed in detail with the patient. He understood and consented. We will plan for procedure later on today. Thank you for allowing us to assist in his care. If there are any questions or concerns please do not hesitate to contact us. Procedures Date of Service Date of Service: 11/23/23
--- NOTE | 2023-11-23 10:41 | HO.PM.IMPN ---
Subjective Subjective Date of Service: 11/23/23 Interval History: LLE swollen no dyspnea NPO no EtOH withdrawal Review of Systems Review of Systems: Yes all other systems are reviewed and are negative Physical Exam Vital Signs: Vital Signs: Last Vital Signs Temp 97 F 11/23/23 08:00 Pulse 95 11/23/23 08:00 Resp 18 11/23/23 08:00 BP 155/90 H 11/23/23 08:00 Pulse Ox 93 11/23/23 08:00 O2 Del Method Room Air 11/23/23 08:00 BMI result Body Mass Index 25.8 Gen: in no acute distress HEENT: sclera anicteric, moist mucus membranes Neck: supple Lungs: clear to auscultation bilaterally Heart: regular rate and rhythm, no murmurs Abd: soft, non-tender, non-distended Ext: LLE swollen, discolored Skin: warm/well-perfused Neuro: alert and oriented x3, no focal findings Psych: appropriate affect Objective Data Active Medications Acetaminophen (Acetaminophen 325 Mg Tablet) 650 mg PO Q6H PRN PRN Reason: Pain, Mild (Pain Scale 1-3) Heparin Sodium (Porcine) (Heparin Sodium,Porcine 5,000 Unit/Ml Vial) 3,200 unit 40 unit/kg (3200 unit) IVPUSH PROTOCOL BOLUS PRN; Protocol PRN Reason: 40 unit/kg - Heparin Protocol Heparin Sodium (Porcine) (Heparin Sodium,Porcine 5,000 Unit/Ml Vial) 6,500 unit 80 unit/kg (6500 unit) IVPUSH PROTOCOL BOLUS PRN; Protocol PRN Reason: 80 unit/kg - Heparin Protocol Hydroxyzine HCl (Hydroxyzine Hcl 50 Mg Tablet) 50 mg PO BEDTIME [facility] Last Admin: 11/22/23 21:22 Dose: 50 mg Documented By: HELDER Heparin Sodium/Sodium Chloride (Heparin Sodium,Porcine/1/2ns) 25,000 unit in 250 mls @ 0 mls/hr IVCONT .Q0M [facility]; Protocol Last Admin: 11/22/23 15:14 Dose: 14 units/kg/hr, 11.33 mls/hr Documented By: LUCIA Co-signed By: TIFFANY Sodium Chloride (Ns) 1,000 mls @ 100 mls/hr IVCONT .Q10H [facility] Last Admin: 11/23/23 09:06 Dose: Not Given Documented By: EVAN Non-Admin Reason: IV Running Multivitamins/Vitamin C (Multivitamin Tablet) 1 tab PO DAILY [facility] Last Admin: 11/23/23 08:55 Dose: Not Given Documented By: RON Non-Admin Reason: Patient Refused Naltrexone HCl (Naltrexone Hcl 50 Mg Tablet) 50 mg PO DAILY@0900 [facility] Last Admin: 11/23/23 08:55 Dose: Not Given Documented By: RON Non-Admin Reason: Patient Refused Nicotine (Nicotine 21 Mg Patch.Td24) 21 mg TRANSDERMA DAILY [facility] Last Admin: 11/23/23 09:05 Dose: Not Given Documented By: EVAN Non-Admin Reason: given at 08:54 Nicotine Polacrilex (Nicotine Polacrilex 2 Mg Gum) 4 mg BUCCAL Q4H PRN PRN Reason: Nicotine Cravings Ondansetron HCl (Ondansetron Hcl 4 Mg/2 Ml Vial) 4 mg IVPUSH Q8H PRN PRN Reason: Nausea and Vomiting Sodium Chloride (0.9 % Sodium Chloride Flush 3 Ml Syringe) 3 ml IVFLUSH QSHIFT [facility] Last Admin: 11/23/23 08:55 Dose: Not Given Documented By: RON Non-Admin Reason: IV Running Labs 11/23/23 06:11 11/22/23 13:13 Labs: Laboratory Results - last 24 hr 11/22/23 11/22/23 11/22/23 13:13 14:53 21:07 MCV 94.5 94.1 MCH 33.2 H 32.5 MCHC 35.1 34.6 RDW 13.7 13.5 Plt Count 119 L 111 L MPV 9.1 L 8.8 L Immature Gran % (Auto) 0.8 H Neut % (Auto) 66.1 Lymph % (Auto) 18.1 L [place] % (Auto) 11.9 H Eos % (Auto) 2.7 Baso % (Auto) 0.4 Lymph # (Auto) 0.9 L [place] # (Auto) 0.6 Eos # (Auto) 0.1 Baso # (Auto) 0.0 Abs Immat Gran (auto) 0.04 H Absolute Neuts (auto) 3.2 Absolute Nucleated RBC 0.000 0.000 Nucleated RBC % (auto) 0.0 0.0 PT 10.7 L 10.9 L INR 0.9 0.9 APTT 31.5 aPTT Heparin Protocol 30.1 L 71.5 D Anion Gap 14 Estim Creat Clear Calc 90.1 Estimated GFR > 60 Random Glucose 92 Calcium 9.6 D Total Bilirubin 0.8 Direct Bilirubin 0.2 AST 40 H ALT 27 Alkaline Phosphatase 65 B-Natriuretic Peptide < 10 Total Protein 6.9 Albumin 4.3 11/23/23 11/23/23 11/23/23 03:05 06:11 06:11 MCV 94.7 94.9 MCH 33.2 H MCHC RDW Plt Count MPV Immature Gran % (Auto) Neut % (Auto) Lymph % (Auto) [place] % (Auto) Eos % (Auto) Baso % (Auto) Lymph # (Auto) [place] # (Auto) Eos # (Auto) Baso # (Auto) Abs Immat Gran (auto) Absolute Neuts (auto) Absolute Nucleated RBC Nucleated RBC % (auto) PT INR APTT aPTT Heparin Protocol 63.3 Anion Gap Estim Creat Clear Calc Estimated GFR Random Glucose Calcium Total Bilirubin Direct Bilirubin AST ALT Alkaline Phosphatase B-Natriuretic Peptide Total Protein Albumin 11/23/23 11/23/23 11/23/23 06:11 06:11 06:11 MCV MCH 33.2 H MCHC 35.1 35.0 RDW 13.7 13.6 Plt Count 107 L MPV Immature Gran % (Auto) Neut % (Auto) Lymph % (Auto) [place] % (Auto) Eos % (Auto) Baso % (Auto) Lymph # (Auto) [place] # (Auto) Eos # (Auto) Baso # (Auto) Abs Immat Gran (auto) Absolute Neuts (auto) Absolute Nucleated RBC Nucleated RBC % (auto) PT INR APTT aPTT Heparin Protocol Anion Gap Estim Creat Clear Calc Estimated GFR Random Glucose Calcium Total Bilirubin Direct Bilirubin AST ALT Alkaline Phosphatase B-Natriuretic Peptide Total Protein Albumin 11/23/23 11/23/23 11/23/23 06:11 06:11 06:11 MCV MCH MCHC RDW Plt Count 113 L MPV 9.3 L 9.2 L Immature Gran % (Auto) 1.2 H Neut % (Auto) 51.1 Lymph % (Auto) 24.9 [place] % (Auto) 14.0 H Eos % (Auto) 7.8 H Baso % (Auto) 1.0 Lymph # (Auto) 1.1 L [place] # (Auto) 0.6 Eos # (Auto) 0.3 Baso # (Auto) 0.0 Abs Immat Gran (auto) 0.05 H Absolute Neuts (auto) 2.2 Absolute Nucleated RBC 0.000 0.000 Nucleated RBC % (auto) 0.0 PT INR APTT aPTT Heparin Protocol Anion Gap Estim Creat Clear Calc Estimated GFR Random Glucose Calcium Total Bilirubin Direct Bilirubin AST ALT Alkaline Phosphatase B-Natriuretic Peptide Total Protein Albumin 11/23/23 11/23/23 06:11 08:37 MCV MCH MCHC RDW Plt Count MPV Immature Gran % (Auto) Neut % (Auto) Lymph % (Auto) [place] % (Auto) Eos % (Auto) Baso % (Auto) Lymph # (Auto) [place] # (Auto) Eos # (Auto) Baso # (Auto) Abs Immat Gran (auto) Absolute Neuts (auto) Absolute Nucleated RBC Nucleated RBC % (auto) 0.0 PT 11.8 INR 1.0 APTT aPTT Heparin Protocol 54.6 Anion Gap Estim Creat Clear Calc Estimated GFR Random Glucose Calcium Total Bilirubin Direct Bilirubin AST ALT Alkaline Phosphatase B-Natriuretic Peptide Total Protein Albumin Assessment and Plan (1) DVT (deep venous thrombosis): Status: Acute Plan d2 63yo M with 4 prior postoperative DVTs presenting with 4 days of LLE swelling and found to have extensive LLE DVT with only provoking factor of immobility DVT - IV heparin infusion, Vascular Surgery to take to OR for mechanical thrombectomy, Hematology consult re definitive oral anticoagulation [likely needs lifelong at this point] binge drinking - prn CIWA, Addiction Medicine consultation - continue naltrexone mood disorder - continue hydroxyzine VTE prophylaxis - on heparin gtt dispo - eventual home In my clinical judgment, the patient requires continued inpatient hospitalization for the following reasons: IV heparin, OR Total time managing care of this patient today: 35 minutes. Quality Stroke Does the patient have a stroke diagnosis?: No VTE Prior VTE?: Yes VTE Risk Level:: Medical - moderate - high VTE Device Contraindication: N/A - Device Ordered VTE Drug Contraindication: N/A - Med Ordered
[2023-11-23] MEDS: Heparin Sodium,Porcine/1/2NS 25,000 UNIT/250 ML IV.SOLN 11.33 UNIT IVCONT (14:23)
--- NOTE | 2023-11-23 14:40 | P.OP_ITS ---
Operative Note Operative Note Date of Service: 11/23/23 Narrative: Operative note by [facility] Preoperative diagnosis: Deep venous thrombosis of left lower extremity Postoperative diagnosis: Same Procedure: 1 Ultrasound-guided left popliteal vein access 2. Inferior vena cavogram 3. Left iliac vein plasty 4. Radiologic super visual and interpretation Surgeon:Leif Johnson M.D. Mechanical Repair Worker: None Anesthesia: Local with moderate conscious sedation. Total intra service moderate sedation time was 60 minutes. I monitored the patient's level of consciousness and physiologic status continuously throughout the procedure Specimen: None Drains: None Estimated blood loss: 50 mL Implant: None Indications: 63-year-old gentleman with recurrent DVT presented with significant swelling of the left lower extremity. He now presents for endovascular intervention as acute on chronic DVT was noted on ultrasound The patient has signed the informed consent after reviewing risks, complications, benefits, and alternatives previously discussed with the patient. The patient was given the opportunity to ask any additional questions or voice any concerns. All questions were answered to the patient's satisfaction. Procedure in detail: Patient was brought to the Angiography suite prior to which a time-out was called for patient identification and site verification. The patient was placed in a prone position. Bilateral popliteal fossas were prepped out. We first access the left popliteal vein under ultrasound guidance. We then placed a percutaneous 5 [place] sheath. We were then able to traverse the clot with a Glidewire Advantage 035 wire. We tried in a trail Blazer catheter to confirmed true lumen. Unfortunately there was an occlusive chronic thrombus at the left common iliac vein. We were unable to traverse this. We used multiple wires including stiff Glidewire 035 advantage 014 advantage and it was a chronic total occlusion. We even tried to advance a long 5 sheath for better support but we were unable to do so. We entered multiple dissection planes. We tried to plasty the true lumen with a 3 x 40 regular balloon in the common iliac but was unable to enter the true lumen. We then decided to remove for patient safety. Catheter wire sheath was removed. 10 minutes direct pressure was held. Procedure was terminated. Patient was returned to recovery with stable vitals. Interpretation of films: 1. Ultrasound demonstrates appropriate popliteal vein puncture. 2. Vena cavogram demonstrated thrombus in the femoral vein into the common femoral vein iliac vein there is a total occlusion at the common iliac vein. Vena cava was patent. 3. Completion vena cavogram demonstrated no change Conclusion: 1. Successful angiogram but was unsuccessful in thrombolysis 2. Anticoagulation status: Resume heparin drip in 2 hours. Tomorrow may start oral anticoagulation. This note is constructed using voice recognition software. While every effort has been made to ensure accuracy, correctional supervising cook errors may have been included. Thank you for allowing me to participate in the care of your patient. Yours sincerely, Leif Johnson MD, FACS, R.P.V.I.
[2023-11-23] MEDS: Heparin Sodium,Porcine/1/2NS 25,000 UNIT/250 ML IV.SOLN 14.56 UNIT IVCONT (15:24)
[2023-11-23] MEDS: Heparin Sodium,Porcine 5,000 UNIT/ML VIAL 6500 UNIT IVPUSH (15:24)
[2023-11-23] MEDS: 0.9 % Sodium Chloride Flush 3 ML SYRINGE IVFLUSH ×2 (16:02→20:12)
[2023-11-23] MEDS: hydrOXYzine HCL 50 MG TABLET PO (20:09)
[2023-11-23] MEDS: Acetaminophen 325 MG TABLET 650 MG PO (20:12)
[2023-11-23 21:31] LABS: PTT Heparin Drip 80.4 SEC (53-77.9)
[2023-11-24 03:29] VITALS: BP 122/71; PULSE 67; RESP 18; TEMP 36.8; O2SAT 97
[2023-11-24 04:11] LABS: PTT Heparin Drip 80.5 SEC (53-77.9)
[2023-11-24 07:32] VITALS: BP 119/73; PULSE 75; RESP 14; TEMP 36.6; O2SAT 96
[2023-11-24] MEDS: Nicotine 21 MG PATCH.TD24 TRANSDERMA (08:02)
--- NOTE | 2023-11-24 08:02 | PM.HEMONCCN ---
Subjective - Subjective Chief complaint: Left leg pain and swelling Patient: new to practice Consult date: 11/24/23 Requesting Physician: Dr. 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 Patient is rather poor historian but he states that his previous episodes of DVT occurred in the postoperative setting. He is therefore not sure why he developed a clot this time around. He was on Eliquis previously but has not been taking it since July of 2023. He denies any family history of thromboembolism. He does not report any recent trauma but states that he has been somewhat sedentary. He has had problems with alcoholism for many years. He denies drinking daily but binges on occasions. He denies any loss of appetite or weight loss. His last colonoscopy was incomplete since he did not have a good bowel prep. He denies any family history or personal history of cancer. Review of Systems - Constitutional Reports as per HPI, Denies lack of energy, Denies weight loss - Cardiovascular Reports no additional cardiovascular complaints - Respiratory Reports no additional respiratory complaints - Gastrointestinal Reports no additional gastrointestinal complaints - Neurologic Reports hearing normal, Denies abnormal gait PMFSH Social History: Social History (Last Reviewed 11/22/23 @ 15:47 by Louie Ogden MD) Living Situation History: Household Members: None Housing: Apartment Do you presently have visiting nurse or other home services: No Alcohol History Details: 2. How many drinks containing alcohol do you have on a typical day when you are drinking?: d. 7 to 9 3. How often do you have six or more drinks on one occasion?: c. Monthly AUDIT-C Alcohol total score: 5 Last drink: Days (ago) Currently Displaying Signs/Symptoms of Alcohol Withdrawal: No Tobacco History: Patient Tobacco Use Status: Former Tobacco user Tobacco use type: Cigarette Smoked in Last 30 Days: No Smoke Quit Date: 8 mo ago Patient Interested in Nicotine Replacement: Yes Substance Use History: Use of substances other than those prescribed or required for medical reasons: No Currently Displaying Signs/Symptoms of Drug Intoxication Withdrawal: No Domestic Abuse History: Have you been hit, kicked, punched, or otherwise hurt by someone within the past year? If so, by whom?: No Do you feel safe in your current relationship?: Yes Are you made to feel afraid or neglected: No Advance Directives: Advance Directives: No Advance Directives Information Provided: No Homicidal Assessment: Do you have thoughts of harming others: None Do you have a plan to hurt others: No Plan Nutrition Assessment: Recently lost weight without trying: No Eating poorly because of decreased appetite: No Nutrition Risks: No Nutritional Risk Poor oral hygiene: No Occupation Assessmet: service: No Home Medications and Allergies Current Medications: Current Medications Acetaminophen (Acetaminophen 325 Mg Tablet) 650 mg PO Q6H PRN PRN Reason: Pain, Mild (Pain Scale 1-3) Last Admin: 11/23/23 20:12 Dose: 650 mg Heparin Sodium (Porcine) (Heparin Sodium,Porcine 5,000 Unit/Ml Vial) 3,200 unit 40 unit/kg (3200 unit) IVPUSH PROTOCOL BOLUS PRN; Protocol PRN Reason: 40 unit/kg - Heparin Protocol Heparin Sodium (Porcine) (Heparin Sodium,Porcine 5,000 Unit/Ml Vial) 6,500 unit 80 unit/kg (6500 unit) IVPUSH PROTOCOL BOLUS PRN; Protocol PRN Reason: 80 unit/kg - Heparin Protocol Last Admin: 11/23/23 15:24 Dose: 6,500 unit Hydroxyzine HCl (Hydroxyzine Hcl 50 Mg Tablet) 50 mg PO BEDTIME [facility] Last Admin: 11/23/23 20:09 Dose: 50 mg Heparin Sodium/Sodium Chloride (Heparin Sodium,Porcine/1/2ns) 25,000 unit in 250 mls @ 0 mls/hr IVCONT .Q0M [facility]; Protocol Last Titration: 11/24/23 04:16 Dose: 14 units/kg/hr, 11.33 mls/hr Multivitamins/Vitamin C (Multivitamin Tablet) 1 tab PO DAILY [facility] Last Admin: 11/23/23 08:55 Dose: Not Given Naltrexone HCl (Naltrexone Hcl 50 Mg Tablet) 50 mg PO DAILY@0900 [facility] Last Admin: 11/23/23 08:55 Dose: Not Given Nicotine (Nicotine 21 Mg Patch.Td24) 21 mg TRANSDERMA DAILY [facility] Last Admin: 11/23/23 09:05 Dose: Not Given Nicotine Polacrilex (Nicotine Polacrilex 2 Mg Gum) 4 mg BUCCAL Q4H PRN PRN Reason: Nicotine Cravings Ondansetron HCl (Ondansetron Hcl 4 Mg/2 Ml Vial) 4 mg IVPUSH Q8H PRN PRN Reason: Nausea and Vomiting Sodium Chloride (0.9 % Sodium Chloride Flush 3 Ml Syringe) 3 ml IVFLUSH QSHIFT [facility] Last Admin: 11/23/23 20:12 Dose: 3 ml Home Medications Medication Instructions Recorded Confirmed Type escitalopram oxalate 10 mg tablet 10 mg PO QAM 04/03/23 11/22/23 History hydroxyzine HCl 25 mg tablet 50 mg PO BEDTIME 04/03/23 11/22/23 History meloxicam 7.5 mg tablet 7.5 mg PO DAILY moderate pain 04/03/23 11/22/23 History nicotine (polacrilex) 4 mg gum 4 mg PO Q4H PRN Nicotine Cravings 04/03/23 11/22/23 History turmeric 400 mg capsule 1,600 mg PO DAILY 05/07/23 11/22/23 History multivitamin 1 tab PO DAILY 11/22/23 11/22/23 History naltrexone 50 mg tablet 50 mg PO QAM 11/22/23 11/22/23 History nicotine 21 mg/24 hr daily 1 patch topical DAILY 11/22/23 11/22/23 History transdermal patch Allergies Allergy/AdvReac Type Severity Reaction Status Date / Time pollen extracts [POLLEN] Allergy Unknown UNKNOWN Verified 10/17/23 12:08 Physical Exam Vital signs: Vital Signs Temp 97.8 F 11/24/23 07:32 Pulse 75 11/24/23 07:32 Resp 14 11/24/23 07:32 BP 119/73 11/24/23 07:32 Pulse Ox 96 11/24/23 07:32 O2 Del Method Room Air 11/24/23 07:32 Intake & Output 11/23/23 11/24/23 11/24/23 18:59 06:59 18:59 Intake Total 261.519 / 978.382 716.863 / 978.382 Output Total 975 / 975 Balance 261.519 / 3.382 -258.137 / 3.382 Urine Output (Average ml/kg/hr) 1.03 Intake: Intake, Oral Amount 540 / 540 Intake, IV Amount 261.519 / 438.382 176.863 / 438.382 Heparin Sodium,Porcine/1/2NS 25 261.519 / 438.382 176.863 / 438.382 ,000 unit In 250 ml @ Per Protocol IVCONT .Q0M [facility] Rx#: [id number] Output: Output, Urine Amount 975 / 975 Other: Urine Urinal Urine Color Yellow Weight 79.2 kg - Constitutional Present: no acute distress, average body habitus - Routine HEENT Exam Head: Present: normal inspection Eye: Present: normal appearance - Routine Neck Exam Present: supple. Absent: lymphadenopathy - Routine Respiratory Exam Present: CTAB - Routine Cardiovascular Exam Cardiovascular: Present: RRR, S1, S2 - Routine Abdominal Exam Present: soft - Routine Extremities Exam Comments: Left leg swollen, mild erythema throughout - Routine Skin Exam Present: intact, erythema Hem/Onc Consult Result - Labs CBC & Chem 7: 11/23/23 06:11 11/22/23 13:13 Assessment and Plan Patient Active problem list reviewed?: Yes (1) DVT (deep venous thrombosis) Status: Acute Assessment and plan: 1. This is a 63-year-old male presenting with spontaneous left lower extremity DVT. He says he had prior episodes of DVT related to hip surgery in the past. He thinks he had blood clots in both legs, no documentation available since it was at outside hospitals. Left lower extremity Doppler performed 11/22/2023 showed deep vein thrombosis involving large portion of left lower extremity, thrombus in peroneal vein, popliteal vein, femoral as well as left common femoral vein. He had CT abdomen/pelvis with contrast in October 2023 which showed hepatic steatosis, no abdominopelvic mass or lymphadenopathy. Bilateral hip arthroplasties noted. There is no family history of thromboembolism. There is no role of thrombophilia testing as it would not exchange administrator. He was advised to go for colonoscopy as his last 1 was nondiagnostic. Treatment would be long-term anticoagulation for both recurrent thrombosis as well as spontaneous thrombosis. Patient was advised about curtailing alcohol intake as it could increase his risk of bleeding. He can be started on Eliquis/DOAC at the time of discharge. I thank you for this consultation. - Time Spent With Patient Time Spent with Patient (in minutes): 20
[2023-11-24] MEDS: 0.9 % Sodium Chloride Flush 3 ML SYRINGE IVFLUSH (08:08)
--- NOTE | 2023-11-24 09:29 | PM.DS ---
DS: Providers Provider Date of Service: 11/24/23 Date of admission: 11/22/23 15:37 Date of discharge: 11/24/23 Primary care physician: Bety Rich MD Consults: 11/22/23 15:05 Consult to Vascular Surgery Routine Consulting Provider: [facility] Reason for consultation: DVT\ 11/22/23 15:31 Consult to Hematology / Oncology Routine Consulting Provider: [facility] [place] Oncology/Hematology Reason for consultation: recurrent DVTs 11/22/23 15:43 Addiction Medicine Routine Consulting Provider: Addiction Covering Reason for consultation: binge drinking DS: Diagnosis Discharge Diagnosis (1) DVT (deep venous thrombosis): Status: Acute DS: Summary Hospital Course Hospital Course: from my admission H+P, 11/22/23: 63yo M with history of, by his count, 4 postoperative DVTs, the last many years ago and each treated with a 6-month course of anticoagulation, most recently apixaban. He also notes intermittent binge drinking, perhaps brenie a month, but denies history of withdrawals or delirium tremens. He presents with 4 days of worsening left leg swelling and discoloration. No shortness of breath, chest pain, or lightheadedness. No prior PE, just DVTs; these have been both in his left and right legs. No FHx of clotting tendencies. No recent travel but he was trying to do a lot of walking in preparation for getting his left hip replaced in the future but thinks he overdid it; so he took 3 days of bedrest. In the ED, he was found to have extensive LLE DVT including the peroneal vein, femoral vein, and the common femoral vein. He was started on heparin drip. He was admitted to the medical-surgical floor with IV heparinization. Vascular Surgery was consulted. 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 He was started on therapeutic apixaban and should remain on apixaban lifelong given his DVT history. Time Attestation Discharge coordination time: Greater than 30 minutes Quality: Safe Use of Opioids Does Pt have an Active Cancer Diagnosis on the Problem List?: No Quality: Stroke Does the patient have a stroke diagnosis?: No Physical Exam Vital Signs: Vital Signs: Last Vital Signs Temp 97.8 F 11/24/23 07:32 Pulse 75 11/24/23 07:32 Resp 14 11/24/23 07:32 BP 119/73 11/24/23 07:32 Pulse Ox 96 11/24/23 07:32 O2 Del Method Room Air 11/24/23 07:32 BMI result Body Mass Index 25.8 Gen: in no acute distress HEENT: sclera anicteric, moist mucus membranes Neck: supple Lungs: clear to auscultation bilaterally Heart: regular rate and rhythm, no murmurs Abd: soft, non-tender, non-distended Ext: LLE swollen, discolored Skin: warm/well-perfused Neuro: alert and oriented x3, no focal findings Psych: appropriate affect DS: Data Data Completed and Pending Completed studies during hospitalization [Text1]: Laboratory Results WBC 4.2 X10*3/uL (4.8-10.8) L 11/23/23 06:11 WBC 4.2 X10*3/uL (4.8-10.8) L 11/23/23 06:11 RBC 3.76 X10*6/uL (4.60-5.80) L 11/23/23 06:11 RBC 3.76 X10*6/uL (4.60-5.80) L 11/23/23 06:11 Hgb 12.5 g/dl (14.0-18.0) L 11/23/23 06:11 Hgb 12.5 g/dl (14.0-18.0) L 11/23/23 06:11 Hct 35.6 % (42.0-52.0) L 11/23/23 06:11 Hct 35.7 % (42.0-52.0) L 11/23/23 06:11 MCV 94.7 fL (80.0-98.0) 11/23/23 06:11 MCV 94.9 fL (80.0-98.0) 11/23/23 06:11 MCH 33.2 pg (27.0-33.0) H 11/23/23 06:11 MCH 33.2 pg (27.0-33.0) H 11/23/23 06:11 MCHC 35.0 g/dl (31.0-36.0) 11/23/23 06:11 MCHC 35.1 g/dl (31.0-36.0) 11/23/23 06:11 RDW 13.6 % (11.0-16.0) 11/23/23 06:11 RDW 13.7 % (11.0-16.0) 11/23/23 06:11 Plt Count 107 X10*3/uL (160-400) L 11/23/23 06:11 Plt Count 113 X10*3/uL (160-400) L 11/23/23 06:11 MPV 9.2 fL (9.4-12.4) L 11/23/23 06:11 MPV 9.3 fL (9.4-12.4) L 11/23/23 06:11 Immature Gran % (Auto) 1.2 % (0.0-0.4) H 11/23/23 06:11 Neut % (Auto) 51.1 % (45-73) 11/23/23 06:11 Lymph % (Auto) 24.9 % (20-40) 11/23/23 06:11 [place] % (Auto) 14.0 % (2-11) H 11/23/23 06:11 Eos % (Auto) 7.8 % (0-4) H 11/23/23 06:11 Baso % (Auto) 1.0 % (0-2) 11/23/23 06:11 Lymph # (Auto) 1.1 X10*3/uL (1.2-4.9) L 11/23/23 06:11 [place] # (Auto) 0.6 X10*3/uL (0.1-1.2) 11/23/23 06:11 Eos # (Auto) 0.3 X10*3/uL (0.0-0.4) 11/23/23 06:11 Baso # (Auto) 0.0 X10*3/uL (0.0-0.2) 11/23/23 06:11 Abs Immat Gran (auto) 0.05 X10*3/uL (0.00-0.03) H 11/23/23 06:11 Absolute Neuts (auto) 2.2 x10*3/uL (2.0-8.3) 11/23/23 06:11 Absolute Nucleated RBC 0.000 X10*3/uL (0.0-0.012) 11/23/23 06:11 Absolute Nucleated RBC 0.000 X10*3/uL (0.0-0.012) 11/23/23 06:11 Nucleated RBC % (auto) 0.0 /100WBC (0.0-0.2) 11/23/23 06:11 Nucleated RBC % (auto) 0.0 /100WBC (0.0-0.2) 11/23/23 06:11 PT 11.8 SEC (11.1-13.3) 11/23/23 06:11 INR 1.0 (0.9-1.1) 11/23/23 06:11 APTT 31.5 SEC (26.0-36.4) 11/22/23 13:13 aPTT Heparin Protocol 80.5 SEC (53-77.9) H 11/24/23 03:58 Sodium 140 mmol/L (135-145) 11/22/23 13:13 Potassium 4.4 mmol/L (3.3-5.1) 11/22/23 13:13 Chloride 103 mmol/L (96-108) 11/22/23 13:13 Carbon Dioxide 27 mmol/L (22-29) 11/22/23 13:13 Anion Gap 14 (12-20) 11/22/23 13:13 BUN 20 mg/dL (9-16) H 11/22/23 13:13 Creatinine 0.85 mg/dL (0.5-1.4) 11/22/23 13:13 Estim Creat Clear Calc 90.1 11/22/23 13:13 Estimated GFR > 60 11/22/23 13:13 Random Glucose 92 mg/dL (60-115) 11/22/23 13:13 Calcium 9.6 mg/dL (8.4-10.2) D 11/22/23 13:13 Total Bilirubin 0.8 mg/dL (0.0-1.0) 11/22/23 13:13 Direct Bilirubin 0.2 mg/dL (0.0-0.5) 11/22/23 13:13 AST 40 U/L (5-37) H 11/22/23 13:13 ALT 27 U/L (0-40) 01/10/24 13:13 Alkaline Phosphatase 65 U/L (39-117) 11/22/23 13:13 B-Natriuretic Peptide < 10 pg/mL (<100) 11/22/23 13:13 Total Protein 6.9 g/dL (6.5-8.0) 11/22/23 13:13 Albumin 4.3 g/dL (3.5-5.0) 11/22/23 13:13 Impressions Venous Duplex 11/22/23 12:08 IMPRESSION: DVT left lower extremity. This result will be given to the patient's provider when this has occurred, an addendum will be issued Discharge Plan Discharge Anticipated Discharge Date/Time: 11/24/23 09:24 Patient Disposition: Home, Self-Care Discharge Diagnosis: left leg DVT Referrals: Bety Rich MD [Primary Care Provider] - 1 Week Discharge Medications: New Eliquis DVT-PE Treat 30D Start 5 mg (74 tabs) tablets,dose pack 5 mg PO BID Qty: 74 0RF Rx Instructions: 10 mg (2 tabs) twice daily for 7 days, then 5 mg twice daily for life Continued meloxicam 7.5 mg tablet 7.5 mg PO DAILY nicotine (polacrilex) 4 mg gum 4 mg PO Q4H PRN (Reason: Nicotine Cravings) hydroxyzine HCl 25 mg tablet 50 mg PO BEDTIME escitalopram oxalate 10 mg tablet 10 mg PO QAM turmeric 400 mg Capsule 1,600 mg PO DAILY naltrexone 50 mg tablet 50 mg PO QAM nicotine 21 mg/24 hr patch 24 hour 1 patch topical DAILY multivitamin Tablet 1 tab PO DAILY Discharge Orders: Discharge Order (Routine); Ordered 11/24/23 Ordered By: Louie Ogden Diet: Advance to usual diet Activity on Discharge: As tolerated Stand Alone Forms: Patient Portal Discharge page Care Plan Goals: treatment of leg clot Health Concerns: left leg DVT Plan of Treatment: apixaban (Eliquis) 5 mg tabs: 10 mg (2 tabs) twice daily for 7 days, then 5 mg (1 tab) twice daily FOR LIFE Please follow up with your primary care doctor within 1 week. Return to the hospital if you experience recurrent or worsening symptoms. Avoid binge drinking Assessment: See Discharge Summary.
--- NOTE | 2023-11-24 09:33 | HO.VASCPN ---
Subjective Subjective Date of Service: 11/24/23 Patient reports: no new complaints and feels better Interval history: 63-year-old gentleman postop day 1 status post attempted mechanical venous thrombectomy. 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 An attempt was made to thrombectomize but we were unsuccessful. He appears to be doing relatively well and reports that the leg is actually feeling better. He has been maintained on a heparin drip. Now for routine follow-up Physical Exam Vital Signs: Vital Signs: Last Vital Signs Temp 97.8 F 11/24/23 07:32 Pulse 75 11/24/23 07:32 Resp 14 11/24/23 07:32 BP 119/73 11/24/23 07:32 Pulse Ox 96 11/24/23 07:32 O2 Del Method Room Air 11/24/23 07:32 BMI result Body Mass Index 25.8 Const: General: cooperative, healthy appearing and no acute distress Orientation/consciousness: oriented to person, oriented to place and oriented to time HEENT: Head: Yes normal to inspection Neck: Carotids: no bruits Chest: Chest palpation & inspection: normal inspection of the chest Resp: Effort & Inspection: normal respiratory effort and able to speak in complete sentences Auscultation: clear to auscultation bilaterally Cardio: Rate: regular rate Heart sounds: S1 normal heart sound present and S2 normal heart sound present GI: Inspection: Yes normal to inspection Skin: Other: Left leg +2 edema General skin exam: no rashes or lesions noted Wounds: no wounds Neuro: General: oriented to person, oriented to place, oriented to time and CN's II-XI intact bilaterally Extrem: General: Yes normal to inspection, Yes full ROM and Yes no clubbing, cyanosis or edema Psych: Appearance: grossly normal and well kempt Speech and movement: Normal speech and movement present Affect: normal affect Progress Note: A&P Assessment and plan (1) DVT (deep venous thrombosis): Status: Acute Assessment and Plan: This appears to be more acute on chronic DVT. Unfortunately we were unable to thrombectomize him. That being said it does appear that he has developed a fair amount of collateral circulation. Would formally anticoagulate. He may require long-term anticoagulation as he has recurrent DVTs. Unclear what the etiology of these recurrent DVTs are. He can follow up with us as an outpatient upon discharge in approximately 2 weeks. Thank you for allowing us to assist in his care. If there are any questions or concerns please do not hesitate to contact us. Time Spent With Patient Time: Total time managing care of this patient today ____ minutes. Procedures Date of Service Date of Service: 11/24/23 Quality Stroke Does the patient have a stroke diagnosis?: No VTE Prior VTE?: Yes VTE Risk Level:: Medical - moderate - high VTE Device Contraindication: N/A - Device Ordered VTE Drug Contraindication: N/A - Med Ordered
--- NOTE | 2023-11-24 09:46 | MHC.CM.PN ---
pt is dcd today he is active with [facility]oneynd gets mow he will need transportion home by [facility] van when dcd
--- NOTE | 2023-11-24 09:50 | HO.ADDICTCON ---
History of Present Illness Date of Service: 11/24/2023 Chief Complaint: DVT Reason for Consult: alcohol use disorder Requesting physician: Louie Ogden Discussed with referring provider: No Sources of Information: patient interviewed and chart reviewed HPI Narrative: Patient is a 63 year old male currently medically admitted with DVT. Consult requested as patient has history of AUD, and reported binge drinking with regularity at present. Seen in room 347. Awake, alert, sitting up in bed. Reports he drinks once a month for 4 days. Attempted to engage patient around this and he verbalized that he was not interested. He states that he will likely not be doing this as often now that he has to stay off his feet for a while. He was very clear that he did not want to hear about AA or anything else. His focus was very much on social supports and getting to the store or the library. Review of Systems Review of Systems Yes Other (defered) Diagnostics Vital Signs (24Hr): Vital Signs - 24 hr 11/23/23 13:15 11/23/23 13:30 11/23/23 13:45 Temperature 97.9 F 97.8 F Pulse Rate 78 73 78 Respiratory Rate 16 16 16 Blood Pressure 127/91 H 119/81 126/74 Pulse Oximetry 97 98 96 Oxygen Delivery Method Room Air Room Air Room Air 11/23/23 15:14 11/23/23 19:29 11/24/23 03:29 Temperature 98.1 F 97.5 F 98.2 F Pulse Rate 86 87 67 Respiratory Rate 18 18 18 Blood Pressure 125/78 131/74 122/71 Pulse Oximetry 95 96 97 Oxygen Delivery Method Room Air Room Air Room Air 11/24/23 07:32 Temperature 97.8 F Pulse Rate 75 Respiratory Rate 14 Blood Pressure 119/73 Pulse Oximetry 96 Oxygen Delivery Method Room Air BMI result Body Mass Index 25.8 Labs 11/23/23 06:11 11/22/23 13:13 Labs: Laboratory Results - last 48 hr 11/22/23 11/22/23 11/22/23 13:13 14:53 21:07 WBC 4.9 4.6 L RBC 4.22 L 4.06 L Hgb 14.0 13.2 L Hct 39.9 L 38.2 L MCV 94.5 94.1 MCH 33.2 H 32.5 MCHC 35.1 34.6 RDW 13.7 13.5 Plt Count 119 L 111 L MPV 9.1 L 8.8 L Immature Gran % (Auto) 0.8 H Neut % (Auto) 66.1 Lymph % (Auto) 18.1 L [place] % (Auto) 11.9 H Eos % (Auto) 2.7 Baso % (Auto) 0.4 Lymph # (Auto) 0.9 L [place] # (Auto) 0.6 Eos # (Auto) 0.1 Baso # (Auto) 0.0 Abs Immat Gran (auto) 0.04 H Absolute Neuts (auto) 3.2 Absolute Nucleated RBC 0.000 0.000 Nucleated RBC % (auto) 0.0 0.0 PT 10.7 L 10.9 L INR 0.9 0.9 APTT 31.5 aPTT Heparin Protocol 30.1 L 71.5 D Sodium 140 Potassium 4.4 Chloride 103 Carbon Dioxide 27 Anion Gap 14 BUN 20 H Creatinine 0.85 Estim Creat Clear Calc 90.1 Estimated GFR > 60 Random Glucose 92 Calcium 9.6 D Total Bilirubin 0.8 Direct Bilirubin 0.2 AST 40 H ALT 27 Alkaline Phosphatase 65 B-Natriuretic Peptide < 10 Total Protein 6.9 Albumin 4.3 11/23/23 11/23/23 11/23/23 03:05 06:11 06:11 WBC 4.2 L 4.2 L RBC 3.76 L Hgb Hct MCV MCH MCHC RDW Plt Count MPV Immature Gran % (Auto) Neut % (Auto) Lymph % (Auto) [place] % (Auto) Eos % (Auto) Baso % (Auto) Lymph # (Auto) [place] # (Auto) Eos # (Auto) Baso # (Auto) Abs Immat Gran (auto) Absolute Neuts (auto) Absolute Nucleated RBC Nucleated RBC % (auto) PT INR APTT aPTT Heparin Protocol 63.3 Sodium Potassium Chloride Carbon Dioxide Anion Gap BUN Creatinine Estim Creat Clear Calc Estimated GFR Random Glucose Calcium Total Bilirubin Direct Bilirubin AST ALT Alkaline Phosphatase B-Natriuretic Peptide Total Protein Albumin 11/23/23 11/23/23 11/23/23 06:11 06:11 06:11 WBC RBC 3.76 L Hgb 12.5 L 12.5 L Hct 35.6 L 35.7 L MCV 94.7 MCH MCHC RDW Plt Count MPV Immature Gran % (Auto) Neut % (Auto) Lymph % (Auto) [place] % (Auto) Eos % (Auto) Baso % (Auto) Lymph # (Auto) [place] # (Auto) Eos # (Auto) Baso # (Auto) Abs Immat Gran (auto) Absolute Neuts (auto) Absolute Nucleated RBC Nucleated RBC % (auto) PT INR APTT aPTT Heparin Protocol Sodium Potassium Chloride Carbon Dioxide Anion Gap BUN Creatinine Estim Creat Clear Calc Estimated GFR Random Glucose Calcium Total Bilirubin Direct Bilirubin AST ALT Alkaline Phosphatase B-Natriuretic Peptide Total Protein Albumin 11/23/23 11/23/23 11/23/23 06:11 06:11 06:11 WBC RBC Hgb Hct MCV 94.9 MCH 33.2 H 33.2 H MCHC 35.1 35.0 RDW 13.7 Plt Count MPV Immature Gran % (Auto) Neut % (Auto) Lymph % (Auto) [place] % (Auto) Eos % (Auto) Baso % (Auto) Lymph # (Auto) [place] # (Auto) Eos # (Auto) Baso # (Auto) Abs Immat Gran (auto) Absolute Neuts (auto) Absolute Nucleated RBC Nucleated RBC % (auto) PT INR APTT aPTT Heparin Protocol Sodium Potassium Chloride Carbon Dioxide Anion Gap BUN Creatinine Estim Creat Clear Calc Estimated GFR Random Glucose Calcium Total Bilirubin Direct Bilirubin AST ALT Alkaline Phosphatase B-Natriuretic Peptide Total Protein Albumin 11/23/23 11/23/23 11/23/23 06:11 06:11 06:11 WBC RBC Hgb Hct MCV MCH MCHC RDW 13.6 Plt Count 107 L 113 L MPV 9.3 L 9.2 L Immature Gran % (Auto) 1.2 H Neut % (Auto) 51.1 Lymph % (Auto) 24.9 [place] % (Auto) 14.0 H Eos % (Auto) 7.8 H Baso % (Auto) 1.0 Lymph # (Auto) 1.1 L [place] # (Auto) 0.6 Eos # (Auto) 0.3 Baso # (Auto) 0.0 Abs Immat Gran (auto) 0.05 H Absolute Neuts (auto) 2.2 Absolute Nucleated RBC 0.000 Nucleated RBC % (auto) PT INR APTT aPTT Heparin Protocol Sodium Potassium Chloride Carbon Dioxide Anion Gap BUN Creatinine Estim Creat Clear Calc Estimated GFR Random Glucose Calcium Total Bilirubin Direct Bilirubin AST ALT Alkaline Phosphatase B-Natriuretic Peptide Total Protein Albumin 11/23/23 11/23/23 11/23/23 06:11 06:11 08:37 WBC RBC Hgb Hct MCV MCH MCHC RDW Plt Count MPV Immature Gran % (Auto) Neut % (Auto) Lymph % (Auto) [place] % (Auto) Eos % (Auto) Baso % (Auto) Lymph # (Auto) [place] # (Auto) Eos # (Auto) Baso # (Auto) Abs Immat Gran (auto) Absolute Neuts (auto) Absolute Nucleated RBC 0.000 Nucleated RBC % (auto) 0.0 0.0 PT 11.8 INR 1.0 APTT aPTT Heparin Protocol 54.6 Sodium Potassium Chloride Carbon Dioxide Anion Gap BUN Creatinine Estim Creat Clear Calc Estimated GFR Random Glucose Calcium Total Bilirubin Direct Bilirubin AST ALT Alkaline Phosphatase B-Natriuretic Peptide Total Protein Albumin 11/23/23 11/23/23 11/24/23 14:52 20:57 03:58 WBC RBC Hgb Hct MCV MCH MCHC RDW Plt Count MPV Immature Gran % (Auto) Neut % (Auto) Lymph % (Auto) [place] % (Auto) Eos % (Auto) Baso % (Auto) Lymph # (Auto) [place] # (Auto) Eos # (Auto) Baso # (Auto) Abs Immat Gran (auto) Absolute Neuts (auto) Absolute Nucleated RBC Nucleated RBC % (auto) PT INR APTT aPTT Heparin Protocol 34.0 L D 80.4 H D 80.5 H Sodium Potassium Chloride Carbon Dioxide Anion Gap BUN Creatinine Estim Creat Clear Calc Estimated GFR Random Glucose Calcium Total Bilirubin Direct Bilirubin AST ALT Alkaline Phosphatase B-Natriuretic Peptide Total Protein Albumin Imaging Radiology Impressions: ITS Impressions Venous Duplex 11/22/23 12:08 IMPRESSION: DVT left lower extremity. This result will be given to the patient's provider when this has occurred, an addendum will be issued Mental Status Exam Mental Status Exam Patient Appearance: Appropriate Level of Consciousness: Awake and Alert Patient Behavior: Guarded Mood Description: Relaxed Affect Description: Constricted Medications Medications Current Medications Acetaminophen (Acetaminophen 325 Mg Tablet) 650 mg PO Q6H PRN PRN Reason: Pain, Mild (Pain Scale 1-3) Last Admin: 11/23/23 20:12 Dose: 650 mg Apixaban (Apixaban 5 Mg Tablet) 10 mg PO ONCE ONE Stop: 11/24/23 09:46 Hydroxyzine HCl (Hydroxyzine Hcl 50 Mg Tablet) 50 mg PO BEDTIME [facility] Last Admin: 11/23/23 20:09 Dose: 50 mg Heparin Sodium/Sodium Chloride (Heparin Sodium,Porcine/1/2ns) 25,000 unit in 250 mls @ 0 mls/hr IVCONT .Q0M [facility]; Protocol Stop: 11/24/23 11:30 Last Titration: 11/24/23 04:16 Dose: 14 units/kg/hr, 11.33 mls/hr Multivitamins/Vitamin C (Multivitamin Tablet) 1 tab PO DAILY [facility] Last Admin: 11/24/23 08:21 Dose: Not Given Naltrexone HCl (Naltrexone Hcl 50 Mg Tablet) 50 mg PO DAILY@0900 [facility] Last Admin: 11/24/23 08:21 Dose: Not Given Nicotine (Nicotine 21 Mg Patch.Td24) 21 mg TRANSDERMA DAILY [facility] Last Admin: 11/24/23 08:02 Dose: 21 mg Nicotine Polacrilex (Nicotine Polacrilex 2 Mg Gum) 4 mg BUCCAL Q4H PRN PRN Reason: Nicotine Cravings Ondansetron HCl (Ondansetron Hcl 4 Mg/2 Ml Vial) 4 mg IVPUSH Q8H PRN PRN Reason: Nausea and Vomiting Sodium Chloride (0.9 % Sodium Chloride Flush 3 Ml Syringe) 3 ml IVFLUSH QSHIFT [facility] Last Admin: 11/24/23 08:08 Dose: 3 ml Allergies Allergies Allergy/AdvReac Type Severity Reaction Status Date / Time pollen extracts [POLLEN] Allergy Unknown UNKNOWN Verified 10/17/23 12:08 Assessment & Plan Assessment & Plan (1) Alcohol use disorder, moderate, dependence: Status: Acute Code(s): F10.20 - Alcohol dependence, uncomplicated Assessment and Plan: Continue with Naltrexone as prescribed-can increase to 100mg if he wishes Patient at this time does not wish to change current drinking pattern Total time managing care of this patient today __20__ minutes. PMFSH Social History Social History Household Members: None Housing: Apartment Do you presently have visiting nurse or other home services: No Alcohol intake: current Alcohol intake frequency: a few times a month Alcohol type: hard liquor Patient Tobacco Use Status: Former Tobacco user Quit Date: 8 mo ago Tobacco use type: Cigarette service: No
[2023-11-24 10:01] LABS: PTT Heparin Drip 60.2 SEC (53-77.9)
[2023-11-24] MEDS: Apixaban 5 MG TABLET 10 MG PO (10:16)
== END 2023-11-24 13:45 | disposition home health service (06) | DRG 182 ==
LOC: HO.ED 14:41 → HO.EDOVER 15:41 → HO.S3 17:19
PROVIDERS: Physician Assistant; Surgery Vascular Surgery; Admitting Provider Family Medicine; Emergency Provider Student in an Organized Health Care Education/Training Program; PCP Family Medicine; Visit Provider Family Medicine
PROC: 047D3ZZ Dilation of Left Common Iliac Artery, Percutaneous Approach (ICD-10-PCS; principal; 2023-11-23 11:00)
DX: I82.412 Acute embolism and thrombosis of left femoral vein (principal); K76.0 Fatty (change of) liver, not elsewhere classified; F10.20 Alcohol dependence, uncomplicated; Z86.718 Personal history of other venous thrombosis and embolism; Z87.891 Personal history of nicotine dependence; Z79.899 Other long term (current) drug therapy
CPT/HCPCS: 36415; 37248; 80048; 80076; 83880; 85025; 85027; 85610; 85730; 93971; 99152; 99153; 99285; A4649; C1725; J1644

== ENCOUNTER → 2023-11-22 15:37 | Outpatient (BNV) | payer MEDICAID, SELFPAY | PROVIDERS: Admitting Provider Family Medicine; Emergency Provider Student in an Organized Health Care Education/Training Program; PCP Family Medicine; Visit Provider Surgery Vascular Surgery | DX: I82.412 Acute embolism and thrombosis of left femoral vein (principal) | CPT/HCPCS: 37191; 99152; 99222; 99232 ==

== ENCOUNTER → 2023-11-22 15:37 | Outpatient (BNV) | payer MEDICAID, SELFPAY | PROVIDERS: Admitting Provider Family Medicine; Emergency Provider Student in an Organized Health Care Education/Training Program; PCP Family Medicine; Visit Provider Internal Medicine | DX: I82.412 Acute embolism and thrombosis of left femoral vein (principal) | CPT/HCPCS: 99221 ==

== ENCOUNTER → 2023-11-22 15:37 | Outpatient (BNV) | payer MEDICAID, SELFPAY | PROVIDERS: Admitting Provider Family Medicine; Emergency Provider Student in an Organized Health Care Education/Training Program; PCP Family Medicine; Visit Provider Family Medicine | DX: I82.412 Acute embolism and thrombosis of left femoral vein (principal) | CPT/HCPCS: 99223; 99232; 99239 ==

== ENCOUNTER → 2023-11-22 15:37 | Outpatient (BNV) | payer OTHER, SELFPAY | PROVIDERS: Admitting Provider Family Medicine; Emergency Provider Student in an Organized Health Care Education/Training Program; PCP Family Medicine; Visit Provider Nurse Practitioner Psychiatric/Mental Health | DX: F10.20 Alcohol dependence, uncomplicated (principal) | CPT/HCPCS: 99232 ==

== ENCOUNTER 2023-12-07 13:34 | Outpatient (AMB) | payer MEDICAID, SELFPAY ==
--- NOTE | 2023-12-07 13:37 | A.OFFVIS_ITS ---
Intake Vital Signs 12/07/23 13:40 Height 5 ft 9 in Weight 180 lb BMI 26.6 Intake Visit Reasons: 2 week follow up diagnostic angio 11/23/2023 Intake Note: Left LE Angiogram ( diagnostic) and unsucccessful thrombolysis 11/23/23, pt states he still has Left LE cramping/pain and swelling in Left LE. Unable to walk far distances Accompanied by: Self / Same As Patient Allergies pollen extracts [POLLEN] Allergy (Unknown, Verified 12/07/23 13:42) UNKNOWN HPI 2 week follow up diagnostic angio 11/23/2023 HPI Details Very pleasant 63-year-old gentleman had undergone left lower extremity DVT thrombectomy. Subsequent to that there was concern about May-Thurner syndrome. He had undergone diagnostic venogram which demonstrated a left iliac occlusion. We were unable to cross this. He now presents for follow-up. [facility] Social History Household Members: None Housing: Apartment Do you presently have visiting nurse or other home services: No Alcohol intake: current Alcohol intake frequency: a few times a month Alcohol type: hard liquor Patient Tobacco Use Status: Former Tobacco user Quit Date: 8 mo ago Tobacco use type: Cigarette service: No Review of Systems Const Reports as per HPI ENT Reports no additional complaints Card Denies chest pain, Denies chest pain at rest and Denies chest pain with activity Resp Denies chest congestion and Denies cough GI Reports no additional complaints Musc Details: pain over varicosities, aching of lower extremities, swelling, cramping, heaviness and tiredness, itching Denies abnormal gait Skin/Breast Reports pruritus and Denies wounds Neuro Reports no additional complaints and Denies abnormal gait Psych Denies no additional complaints Physical Exam Vital Signs: BMI result Body Mass Index 26.6 Const General: cooperative, healthy appearing and comfortable Orientation/consciousness: oriented to person, oriented to place and oriented to time Neck Carotids: no bruits Chest Chest palpation & inspection: normal inspection of the chest and normal palpation of entire chest wall Resp Effort & Inspection: normal respiratory effort and able to speak in complete sentences Cardio Rate: regular rate Heart sounds: S1 normal heart sound present and S2 normal heart sound present Peripheral pulses: Peripheral pulses 2+ throughout GI Inspection: Yes normal to inspection Skin Other: +2 edema, left leg General skin exam: dry skin Neuro General: oriented to person, oriented to place and oriented to time Extrem Right lower extremity: full ROM, normal capillary refill and edema Left lower extremity: full ROM, normal capillary refill and edema Psych Mental Status: mental status grossly normal Assessment & Plan Assessment & Plan (1) DVT (deep venous thrombosis): Code(s): I82.409 - Acute embolism and thrombosis of unspecified deep veins of unspecified lower extremity Qualifiers: Affected thrombotic vein of extremity: femoral Chronicity: acute DVT location: lower extremity Laterality: left Qualified Code(s): I82.412 - Acute embolism and thrombosis of left femoral vein Plan: In short patient has chronic left iliac vein occlusion. Would continue anticoagulation. Would continue with conservative measures including compression elevation and exercise. He will follow up with us on an as-needed basis. Thank you for allowing us to assist in his care. Coding Level of Care Code Est Pt Level 3 (47096) Diagnoses Acute deep vein thrombosis (DVT) of femoral vein of left lower extremity I82.412 Affected thrombotic vein of extremity: femoral Chronicity: acute DVT location: lower extremity Laterality: left
[2023-12-07 13:40] VITALS: BMI 26.6
== END 2023-12-07 14:00 | disposition home or self-care (01) ==
PROVIDERS: PCP Family Medicine; Visit Provider Surgery Vascular Surgery
DX: I82.412 Acute embolism and thrombosis of left femoral vein (principal)
CPT/HCPCS: 99213

== ENCOUNTER → 2023-12-07 13:34 | Outpatient (BNVA) | payer MEDICAID, SELFPAY | PROVIDERS: PCP Family Medicine; Visit Provider Surgery Vascular Surgery | DX: I82.412 Acute embolism and thrombosis of left femoral vein (principal) | CPT/HCPCS: 99212 ==

== ENCOUNTER 2024-02-01 12:24 | Emergency (ER) | payer MEDICAID, SELFPAY ==
--- NOTE | ~2024-02-01 | XR_ITS ---
EXAMINATION: XR CHEST CLINICAL INFORMATION: Altered mental status. Possible aspiration. COMPARISON: 07/27/2023 TECHNIQUE: Frontal view of the chest was obtained. FINDINGS: Lungs are mildly hypoinflated. The right hemidiaphragm is chronically mildly elevated and projects approximately 3 cm above the level of the left hemidiaphragm. There are no acute abnormalities. No evidence of interstitial infiltrate, consolidation or pleural effusion. Cardiac silhouette has normal size and contour. The visualized bones are intact. XR/XR chest 1V IMPRESSION: No acute pulmonary disease. No evidence of aspiration pneumonia.
--- NOTE | ~2024-02-01 | CT_ITS ---
EXAMINATION: CT brain and CT cervical spine without contrast. CLINICAL INDICATIONS: Fall, AMS. COMPARISON: CT brain 07/27/2023. TECHNIQUE: 5 mm thin axial and reformatted 2 mm thin sagittal and coronal images of brain were obtained. Subsequently axial 3 minutes thin and reformatted 2 minutes thin sagittal coronal images of cervical spine were obtained. DLP [id number]. This CT examination was performed using dose optimization technique as appropriate, variously including the following: Automated exposure control Adjustment of MA and/or KV according to patient size(this includes techniques or standardized protocols for targeted exams where dose is matched to indication/reason for exam; extremities or head. Use of iterative reconstruction techniques. FINDINGS: Brain: There is no acute intra-axial, extra-axial bleed, masses or midline shift. There is no acute infarction in evolution. There is no edema. The walker to white matter differentiation is maintained normal. The lateral ventricles are symmetrical in size and configuration and mildly enlarged. The cortical sulci are prominent but symmetrical. Bone windows reveal no calvarial abnormality. Bilateral paranasal sinuses and mastoid air cells are well-aerated. There is no scalp soft tissue normality. Cervical spine: There is mild straightening of cervical lordosis, spasm versus positional.. The heights is normal. There is minimal grade 1 anterolisthesis C3 over C4. Rest of the vertebral alignment is normal. There is loss of C6-C7 disc height with mild ventral and posterior spondylosis. There is no aggressive lytic or sclerotic process seen. The prevertebral and paravertebral soft tissues are normal. There is moderate right C2-C3, C3-C4, C4-C5 and C5-C6 facet joint arthropathy. No aggressive lytic or sclerotic process seen. The prevertebral and paravertebral soft tissues are normal. CT/CT cervical spine wo IV con IMPRESSION: 1. No acute intracranial process seen. 2. There is no acute fracture, dislocation or subluxation seen. 3. There are degenerative disc changes C6-C7 disc levels with spondylosis. There is grade 1 anterolisthesis C3 over C4. Moderate right facet joint arthropathy as described above.
--- NOTE | 2024-02-01 12:37 | ED.GENADULT ---
HPI - General Adult General Chief complaint: ETOH/Substance Use Stated complaint: ETOH Time Seen by Provider: 02/01/24 12:33 Source: patient and EMS Mode of arrival: EMS Limitations: no limitations History of Present Illness HPI narrative: Patient is a 63 year old assigned male at with a history of alcohol abuse presenting to the emergency department today acutely intoxicated. Patient states that he drank at least 2 and a half bottles of 24 oz of vodka. Patient states that he is on some anti-coagulant medication for a previous DVT. Patient denies any dizziness, lightheadedness, abdominal pain, nausea, vomiting, fever, chills, blurry vision, double vision, loss of vision, chest pain, difficulty breathing, shortness of breath, back pain, night sweats, pain with urination, increased urinary frequency, increased urinary urgency, blood in his urine or stool, syncope or a near syncopal episode, bowel incontinence, bladder incontinence, bowel retention, bladder retention, or any other complaints at this time. Relieving factors: none Exacerbating factors: none Associated symptoms: denies other symptoms Treatments prior to arrival: none Related Data Home Medications Medication Instructions Recorded Confirmed escitalopram oxalate 10 mg tablet 10 mg PO QAM 04/03/23 11/22/23 hydroxyzine HCl 25 mg tablet 50 mg PO BEDTIME 04/03/23 11/22/23 meloxicam 7.5 mg tablet 7.5 mg PO DAILY moderate pain 04/03/23 11/22/23 nicotine (polacrilex) 4 mg gum 4 mg PO Q4H PRN Nicotine Cravings 04/03/23 11/22/23 turmeric 400 mg capsule 1,600 mg PO DAILY 05/07/23 11/22/23 multivitamin 1 tab PO DAILY 11/22/23 11/22/23 naltrexone 50 mg tablet 50 mg PO QAM 11/22/23 11/22/23 nicotine 21 mg/24 hr daily 1 patch topical DAILY 11/22/23 11/22/23 transdermal patch Previous Rx's Medication Instructions Recorded apixaban 5 mg (74 tabs) tablets in 5 mg PO BID #74 ea 11/24/23 a dose pack (Eliquis DVT-PE Treat 30D Start) Allergies Allergy/AdvReac Type Severity Reaction Status Date / Time pollen extracts [POLLEN] Allergy Unknown UNKNOWN Verified 12/07/23 13:42 Review of Systems Constitutional: Constitutional: Reports no additional constitutional complaints, Denies chills, Denies fever(s) and Denies night sweats Eyes: Eyes: Reports no additional eye complaints, Denies blurry vision, Denies change in vision, Denies diplopia, Denies eye discharge, Denies loss of vision and Denies eye pain ENT: Denies dizziness Cardiovascular: Cardiovascular: Reports no additional cardiovascular complaints, Denies chest pain, Denies lightheadedness, Denies Loss of Consciousness and Denies dyspnea Respiratory: Respiratory: Reports no additional respiratory complaints and Denies dyspnea Gastrointestinal: Gastrointestinal: Reports no additional gastrointestinal complaints, Denies abdominal pain, Denies melena, Denies hematochezia, Denies change in bowel habits and Denies change in stool character Genitourinary: Genitourinary: Reports no additional male genitourinary complaints, Denies hematuria, Denies oliguria, Denies difficulty urinating, Denies dysuria, Denies urinary frequency, Denies urinary hesitancy, Denies urinary incontinence and Denies urinary urgency Musculoskeletal: Musculoskeletal: Reports no additional musculoskeletal complaints, Denies numbness and Denies tingling Neurologic: Denies dizziness, Denies loss of vision, Denies numbness and Denies tingling Psychiatric: Psychiatric: Reports no additional psychiatric complaints Endocrine: Endocrine: Reports no additional endocrine complaints Hematologic/Lymphatic: Hematologic/Lymphatic: Reports no additional hematologic/lymphatic complaints Allergic/Immunologic: Allergic/Immunologic: Reports no additional allergic/immunologic complaints [facility] Past Medical History Attestation statement: The following information was validated with the patient. Source: old records reviewed and nursing notes reviewed Social History Social History Household Members: None Housing: Apartment Do you presently have visiting nurse or other home services: No Alcohol intake: current Alcohol intake frequency: a few times a month Alcohol type: hard liquor Patient Tobacco Use Status: Former Tobacco user Quit Date: 8 mo ago Tobacco use type: Cigarette Advance Directives: No service: No Physical Exam ED Vital Signs: Vital Signs - 24 hr 02/01/24 12:57 02/01/24 14:42 Temperature 98.3 F 99.0 F Pulse Rate 96 109 H Respiratory Rate 17 18 Blood Pressure 146/95 H 126/77 Pulse Oximetry 93 93 Oxygen Delivery Method Room Air Room Air BMI result Body Mass Index 24.3 Const General: cooperative, no acute distress, alert and awake Nutritional Appearance: well nourished Orientation/consciousness: patient oriented x3 Limitations: no limitations HENMT Head: Yes normal to inspection and Yes atraumatic Ears: hearing grossly normal bilaterally and external ears normal General nose exam: Normal external nose present, no nasal discharge noted and no epistaxis Face and sinus: Yes normal facial exam, No abrasion and No laceration Mouth: Normal oral and palatal mucosa present, no drooling and no muffled voice Eyes General: appearance normal, both eyes and all related structures Periorbital: periorbital findings normal Eyelids: Yes eyelids normal Conjunctivae: conjunctivae normal Pupils: Equal, round and reactive pupils present EOM: EOMs intact bilaterally Neck Neck: Yes normal visual inspection, Yes full ROM and Yes no lymphadenopathy Chest Chest palpation & inspection: normal inspection of the chest Resp Effort & Inspection: normal respiratory effort and able to speak in complete sentences GI Inspection: Yes normal to inspection Neuro General: patient oriented x3 and moves all extremities Cranial nerves: Yes Equal, round and reactive pupils present Cognition (Neuro): normal cognition Motor exam (neuro): 5/5 motor strength present throughout Sensory Exam: Normal double simultaneous stimulation for sensation Coordination: [id number] test normal Extrem General: Yes normal to inspection, Yes full ROM and Yes capillary refill normal Psych Appearance: grossly normal Mental Status: mental status grossly normal Affect: normal affect Attitude: cooperative Thought process: Normal thought process present Thought content: Normal thought content present Insight: Good insight present (Psych) Medications Administered Discontinued Medications Generic Name Dose Route Start Last Admin Trade Name Freq PRN Reason Stop Dose Admin Nicotine Polacrilex 2 mg 02/01/24 13:44 02/01/24 13:50 Nicotine Polacrilex 2 Mg Gum BUCCAL 02/01/24 13:45 2 mg ONCE ONE Administration Medical Decision Making Medical Decision Making MDM Narrative: Patient is a 63 year old assigned male at with a history of alcohol abuse and DVT presenting to the emergency department today with acute alcohol intoxication. Patient's physical exam showed an obviously intoxicated male but was otherwise unremarkable. Patient's blood work showed an elevated alcohol of 345 but was otherwise unremarkable. Patient's urine showed no acute process. Patient's chest x-ray showed no acute process. Patient's head and c-spine CTs are pending. I explained my physical exam findings as well as all test results to the patient. I answered all questions asked by the patient. Patient will be signed out to the evening SHARIF. If patient's chest x-ray, head CT, and C-spine CT are negative - patient will await until clinically sober to be discharged back to his halfway. Differential Diagnosis Differential Diagnoses: The differential diagnosis associated with the presentation includes Alcohol intoxication Alcohol abuse Admission/Observation Consideration of admission/observation: Escalation of care including admission/observation considered Patient's disposition will be determined after imaging results. Lab Data [facility] Lab Attestation statement: I reviewed the patient's lab results. My interpretation of these results are in the [facility] Rationale portion of this note. 02/01/24 14:26 02/01/24 14:26 Labs: Lab Results 02/01/24 Range/Units 14:26 WBC 5.3 (4.8-10.8) X10*3/uL RBC 4.61 D (4.60-5.80) X10*6/uL Hgb 14.8 (14.0-18.0) g/dl Hct 43.3 D (42.0-52.0) % MCV 93.9 (80.0-98.0) fL MCH 32.1 (27.0-33.0) pg MCHC 34.2 (31.0-36.0) g/dl RDW 15.0 (11.0-16.0) % Plt Count 203 D (160-400) X10*3/uL MPV 8.0 L (9.4-12.4) fL Immature Gran % (Auto) 1.7 H (0.0-0.4) % Neut % (Auto) 76.3 H (45-73) % Lymph % (Auto) 14.0 L (20-40) % [place] % (Auto) 7.2 (2-11) % Eos % (Auto) 0.2 (0-4) % Baso % (Auto) 0.6 (0-2) % Lymph # (Auto) 0.7 L (1.2-4.9) X10*3/uL [place] # (Auto) 0.4 (0.1-1.2) X10*3/uL Eos # (Auto) 0.0 (0.0-0.4) X10*3/uL Baso # (Auto) 0.0 (0.0-0.2) X10*3/uL Abs Immat Gran (auto) 0.09 H (0.00-0.03) X10*3/uL Absolute Neuts (auto) 4.0 (2.0-8.3) x10*3/uL Absolute Nucleated RBC 0.000 (0.0-0.012) X10*3/uL Nucleated RBC % (auto) 0.0 (0.0-0.2) /100WBC Sodium 146 H (135-145) mmol/L Potassium 3.9 (3.3-5.1) mmol/L Chloride 101 (96-108) mmol/L Carbon Dioxide 27 (22-29) mmol/L Anion Gap 22 H (12-20) BUN 18 H (9-16) mg/dL Creatinine 0.64 (0.5-1.4) mg/dL Estim Creat Clear Calc 115.7 Estimated GFR > 60 Random Glucose 98 (60-115) mg/dL Calcium 9.6 (8.4-10.2) mg/dL Total Bilirubin 0.3 (0.0-1.0) mg/dL AST 28 (5-37) U/L ALT 21 (0-40) U/L Alkaline Phosphatase 66 (39-117) U/L Ammonia 26 (13-55) umol/L Total Protein 6.8 (6.5-8.0) g/dL Albumin 4.2 (3.5-5.0) g/dL Urine Color Yellow Urine Appearance Clear Urine pH 6.5 (5.0-9.0) Ur Specific [place] 1.010 (1.005-1.025) Urine Protein Trace (Neg-Trace) mg/dL Urine Glucose (UA) Negative (Negative) mg/dL Urine Ketones Trace (Negative) mg/dL Urine Blood Negative (Negative) Urine Nitrite Negative (Negative) Ur Leukocyte Esterase Negative (Negative) Ethyl Alcohol 345 H* mg/dL Independent Interpretation I performed an independent interpretation of an: Plain X-Ray Interpretation: My interpretation is in agreement with the radiologist's impression of this imaging study. EXAMINATION: XR CHEST CLINICAL INFORMATION: Altered mental status. Possible aspiration. COMPARISON: 07/27/2023 TECHNIQUE: Frontal view of the chest was obtained. FINDINGS: Lungs are mildly hypoinflated. The right hemidiaphragm is chronically mildly elevated and projects approximately 3 cm above the level of the left hemidiaphragm. There are no acute abnormalities. No evidence of interstitial infiltrate, consolidation or pleural effusion. Cardiac silhouette has normal size and contour. The visualized bones are intact. XR/XR chest 1V IMPRESSION: No acute pulmonary disease. No evidence of aspiration pneumonia. Dictated By: Ron Chandler MD Signed By: Electronically signed by Ron Chandler MD 02/01/24 [id number] Independent Historian Clinical information obtained from an independent historian. History obtained from or confirmed by: EMS (EMS provided additional history and confirmed the history provided by the patient) Chronic Conditions Patient?s care impacted by: Other (alcohol abuse) Discharge Plan Discharge Clinical Impression: Alcoholic intoxication Patient Disposition: Still a Patient Prescriptions: No Action meloxicam 7.5 mg tablet 7.5 mg PO DAILY nicotine (polacrilex) 4 mg gum 4 mg PO Q4H PRN (Reason: Nicotine Cravings) hydroxyzine HCl 25 mg tablet 50 mg PO BEDTIME escitalopram oxalate 10 mg tablet 10 mg PO QAM turmeric 400 mg Capsule 1,600 mg PO DAILY naltrexone 50 mg tablet 50 mg PO QAM nicotine 21 mg/24 hr patch 24 hour 1 patch topical DAILY multivitamin Tablet 1 tab PO DAILY Eliquis DVT-PE Treat 30D Start 5 mg (74 tabs) tablets,dose pack 5 mg PO BID Qty: 74 0RF Rx Instructions: 10 mg (2 tabs) twice daily for 7 days, then 5 mg twice daily for life
[2024-02-01 12:57] VITALS: BP 146/95; BP 162/88; PULSE 116; PULSE 96; RESP 17; TEMP 36.8; O2SAT 93; O2SAT 97; BMI 24.3
[2024-02-01] MEDS: Nicotine Polacrilex 2 MG GUM BUCCAL ×2 (13:50→16:27)
[2024-02-01 14:34] LABS: MANUAL DIFF FLAG NO
[2024-02-01 14:37] LABS: Appearance Urine Clear; Basophils Percent Auto 0.6 % (0-2); Color Urine Yellow; Eosinophils Percent Auto 0.2 % (0-4); Glucose Urine UA Negative (Negative); Hematocrit 43.3 % (42.0-52.0); Hemoglobin 14.8 g/dl (14.0-18.0); Imm Gran Abs Auto 0.09 X10*3/uL (0.00-0.03); Imm Gran Pct Auto 1.7 % (0.0-0.4); Leukocyte Esterase Urine Negative (Negative); Lymphocytes Absolute Auto 0.7 X10*3/uL (1.2-4.9); Mean Corpuscular HGB Conc 34.2 g/dl (31.0-36.0); Mean Corpuscular Hemoglobin 32.1 pg (27.0-33.0); Mean Corpuscular Volume 93.9 fL (80.0-98.0); Monocytes Absolute Auto 0.4 X10*3/uL (0.1-1.2); Monocytes Percent Auto 7.2 % (2-11); Neutrophils Percent Auto 76.3 % (45-73); Nitrite Urine Negative (Negative); PH 6.5 (5.0-9.0); Platelet Count 203 X10*3/uL (160-400); Red Blood Count 4.61 X10*6/uL (4.60-5.80); Urine Blood Negative (Negative); Urine Ketones Trace mg/dL (Negative); Urine Protein Trace mg/dL (Neg-Trace); White Blood Count 5.3 X10*3/uL (4.8-10.8)
[2024-02-01 14:42] VITALS: BP 126/77; PULSE 109; RESP 18; TEMP 37.2; O2SAT 93
[2024-02-01 14:44] LABS: Ammonia 26 umol/L (13-55)
[2024-02-01 14:52] LABS: Alanine Aminotransferase 21 U/L (0-40); Albumin Level 4.2 g/dL (3.5-5.0); Alkaline Phosphatase 66 U/L (39-117); Anion Gap 22 (12-20); Aspartate Amino Transferase 28 U/L (5-37); Bilirubin Total 0.3 mg/dL (0.0-1.0); Blood Urea Nitrogen 18 mg/dL (9-16); Calcium 9.6 mg/dL (8.4-10.2); Carbon Dioxide 27 mmol/L (22-29); Chloride 101 mmol/L (96-108); Creatinine Clr Calc Pharmacy 115.7; Estimated Glomerular Filt Rate > 60; Ethanol 345 mg/dL; Glucose Random 98 mg/dL (60-115); Potassium 3.9 mmol/L (3.3-5.1); Sodium 146 mmol/L (135-145); Total Protein 6.8 g/dL (6.5-8.0)
--- NOTE | 2024-02-01 15:58 | PC.NURSE ---
assumed care of patient at 1445, patient appears to be resting comfortably on stretcher in 18H, patient is alert and oriented x4, informs this RN that he drank heavily today. Pt has extensive hx of etoh abuse. Pt ambulated with steady gait to bathroom, no apparent distress noted
--- NOTE | 2024-02-01 17:31 | PC.NURSE ---
Pt ambulating around ER, back and forth to the bathroom, offering no immediate complaints, calm and cooperative. Requesting to be discharged, patient aware of need to stay at this time
--- NOTE | 2024-02-01 17:55 | PC.NURSE ---
pt provided with deck of cards to keep himself busy. continues to be calm and cooperative, offering no complaints
[2024-02-01 18:00] VITALS: BP 123/88; PULSE 131; RESP 16; TEMP 36.6; O2SAT 94
--- NOTE | 2024-02-01 18:18 | PC.NURSE ---
Pts HR in 130s, denies CP or palpitations. Pt overall looks well, no obvious distress noted. Respirations even and unlabored, skin pwd, alert and oriented x4, CIWA 3, PA Kalyan aware via tiger text
[2024-02-01 20:00] VITALS: BP 122/82; PULSE 100; RESP 16; TEMP 37.2; O2SAT 97
[2024-02-02 01:43] VITALS: BP 127/72; PULSE 66; RESP 18; TEMP 36.5; O2SAT 93
[2024-02-02] MEDS: LORazepam 1 MG TABLET PO (02:04)
--- NOTE | 2024-02-02 05:13 | PC.NURSE ---
pt resting comfortably eyes closed resp even and unlabored. nad. awaiting d/c in am.
[2024-02-02] MEDS: Nicotine Polacrilex 2 MG GUM BUCCAL (06:34)
[2024-02-02 06:42] VITALS: BP 0/0; PULSE 0; RESP 0; TEMP -17.7; TEMP 0; O2SAT 0
== END 2024-02-02 06:48 | disposition home or self-care (01) ==
PROVIDERS: Physician Assistant Medical; Emergency Provider Emergency Medicine
DX: F10.129 Alcohol abuse with intoxication, unspecified (principal); R41.82 Altered mental status, unspecified; R51.9 Headache, unspecified; M54.2 Cervicalgia; R07.89 Other chest pain; Y90.8 Blood alcohol level of 240 mg/100 ml or more; Z79.899 Other long term (current) drug therapy
CPT/HCPCS: 36415; 70450; 71045; 72125; 80053; 80307; 81003; 82140; 85025; 99284

== ENCOUNTER 2024-02-09 13:16 | Emergency (ER) | payer MEDICAID, SELFPAY ==
--- NOTE | ~2024-02-09 | XR_ITS ---
EXAMINATION: XR CHEST CLINICAL INFORMATION: Cough COMPARISON: Chest radiograph 02/01/2024. TECHNIQUE: 2 views of the chest were obtained. FINDINGS: The lungs are mildly hypoexpanded. No focal consolidation. No pleural effusion, edema or pneumothorax. The cardiomediastinal silhouette is within normal limits. No acute osseous abnormality. Mild degenerative changes of thoracic spine. XR/XR chest 2V IMPRESSION: No acute pulmonary disease.
[2024-02-09 13:26] VITALS: BP 162/82; PULSE 88
--- NOTE | 2024-02-09 13:26 | ED.URI ---
HPI - URI/Sore Throat General Chief Complaint: Upper Respiratory Symptoms Stated Complaint: Cold Symptoms Detox Time Seen by Provider: 02/09/24 19:59 Source: patient Mode of arrival: EMS Limitations: no limitations History of Present Illness HPI Narrative: Patient has been congested and coughing for last 1 week patient drinks alcohol but denies any need for detox at this time no chest pain no leg swelling Related Data Home Medications Medication Instructions Recorded Confirmed escitalopram oxalate 10 mg tablet 10 mg PO QAM 04/03/23 11/22/23 hydroxyzine HCl 25 mg tablet 50 mg PO BEDTIME 04/03/23 11/22/23 meloxicam 7.5 mg tablet 7.5 mg PO DAILY moderate pain 04/03/23 11/22/23 nicotine (polacrilex) 4 mg gum 4 mg PO Q4H PRN Nicotine Cravings 04/03/23 11/22/23 turmeric 400 mg capsule 1,600 mg PO DAILY 05/07/23 11/22/23 multivitamin 1 tab PO DAILY 11/22/23 11/22/23 naltrexone 50 mg tablet 50 mg PO QAM 11/22/23 11/22/23 nicotine 21 mg/24 hr daily 1 patch topical DAILY 11/22/23 11/22/23 transdermal patch Previous Rx's Medication Instructions Recorded apixaban 5 mg (74 tabs) tablets in 5 mg PO BID #74 ea 11/24/23 a dose pack (Eliquis DVT-PE Treat 30D Start) benzonatate 200 mg capsule 200 mg PO TID PRN cough #30 caps 02/09/24 cefuroxime axetil 500 mg tablet 500 mg PO BID 7 days #14 tabs 02/09/24 Allergies Allergy/AdvReac Type Severity Reaction Status Date / Time pollen extracts [POLLEN] Allergy Unknown UNKNOWN Verified 12/07/23 13:42 Review of Systems Review of Systems: Yes all other systems are reviewed and are negative PMFSH Social History Social History Household Members: None Housing: Apartment Do you presently have visiting nurse or other home services: No Alcohol intake: current Alcohol intake frequency: a few times a month Alcohol type: hard liquor Patient Tobacco Use Status: Former Tobacco user Quit Date: 8 mo ago Tobacco use type: Cigarette Smoked in Last 30 Days: No Use of substances other than those prescribed or required for medical reasons: No Advance Directives: Yes Advance Directives Information Provided: Yes Advance Directives on File: No service: No Physical Exam Vital Signs: Vital Signs: Last Vital Signs Temp 98.0 F 02/09/24 20:45 Pulse 95 02/09/24 20:45 Resp 18 02/09/24 20:45 BP 128/80 02/09/24 20:45 Pulse Ox 94 02/09/24 20:45 O2 Del Method Room Air 02/09/24 20:45 BMI result Body Mass Index 25.0 Appearance: Alert. Oriented X3. No acute distress. Eyes: PERRLA, No Nystagmus ENT: Pharynx normal. Oral Mucosa moist clear rhinorrhea Neck: Normal inspection. Neck supple. CVS: Normal heart rate and rhythm. Pulses normal. Respiratory: No respiratory distress. Equal air entry bilateral, no wheezing/rales/rhonchi Abdomen: Soft and nontender. Bowel sounds are present, no mass palpable, no CVA tenderness Skin: Skin warm and dry. Normal skin color. Normal skin turgor. Extremities: No lower extremity edema. No calf tenderness Neuro: Oriented X 3. No motor deficit. Steady gait Course Course Course Narrative: This is an RME: Additional HPI, ROS, PE not included below will be deferred to primary provider. Patient is a 63-year-old male who presents emergency department for evaluation of cold-like symptoms. Also he is requesting assistance with detox from alcohol. Medications Administered Discontinued Medications Generic Name Dose Route Start Last Admin Trade Name Freq PRN Reason Stop Dose Admin Benzonatate 200 mg 02/09/24 20:07 02/09/24 20:42 Benzonatate 100 Mg Capsule PO 02/09/24 20:08 200 mg ONCE ONE Administration Cefuroxime Axetil 500 mg 02/09/24 20:07 02/09/24 20:42 Cefuroxime Axetil 500 Mg Tablet PO 02/09/24 20:08 500 mg ONCE ONE Administration Medical Decision Making Medical Decision Making [facility] Narrative: Patient with influenza positive history of alcohol use refusing to go to detox at this time will discharge patient home on supportive treatment Differential Diagnosis Differential Diagnoses: The differential diagnosis associated with the presentation includes Bronchitis /viral infection/alcoholism/pneumonia Lab Data [facility] Lab Attestation statement: I reviewed the patient's lab results. 02/09/24 14:17 02/09/24 14:17 Labs: Lab Results 02/09/24 02/09/24 Range/Units 14:17 15:33 WBC 6.1 (4.8-10.8) X10*3/uL RBC 4.67 (4.60-5.80) X10*6/uL Hgb 15.3 (14.0-18.0) g/dl Hct 44.4 (42.0-52.0) % MCV 95.1 (80.0-98.0) fL MCH 32.8 (27.0-33.0) pg MCHC 34.5 (31.0-36.0) g/dl RDW 15.7 (11.0-16.0) % Plt Count 115 L D (160-400) X10*3/uL MPV 8.2 L (9.4-12.4) fL Immature Gran % (Auto) 0.3 (0.0-0.4) % Neut % (Auto) 72.9 (45-73) % Lymph % (Auto) 9.7 L (20-40) % [place] % (Auto) 16.9 H (2-11) % Eos % (Auto) 0.0 (0-4) % Baso % (Auto) 0.2 (0-2) % Lymph # (Auto) 0.6 L (1.2-4.9) X10*3/uL [place] # (Auto) 1.0 (0.1-1.2) X10*3/uL Eos # (Auto) 0.0 (0.0-0.4) X10*3/uL Baso # (Auto) 0.0 (0.0-0.2) X10*3/uL Abs Immat Gran (auto) 0.02 (0.00-0.03) X10*3/uL Absolute Neuts (auto) 4.5 (2.0-8.3) x10*3/uL Absolute Nucleated RBC 0.000 (0.0-0.012) X10*3/uL Nucleated RBC % (auto) 0.0 (0.0-0.2) /100WBC Sodium 136 (135-145) mmol/L Potassium 3.8 (3.3-5.1) mmol/L Chloride 100 (96-108) mmol/L Carbon Dioxide 15 L (22-29) mmol/L Anion Gap 25 H (12-20) BUN 23 H (9-16) mg/dL Creatinine 1.00 (0.5-1.4) mg/dL Estim Creat Clear Calc 76.5 Estimated GFR > 60 Random Glucose 181 H (60-115) mg/dL Calcium 8.6 D (8.4-10.2) mg/dL Total Bilirubin 0.5 (0.0-1.0) mg/dL AST 70 H (5-37) U/L ALT 53 H (0-40) U/L Alkaline Phosphatase 82 (39-117) U/L Total Protein 7.1 (6.5-8.0) g/dL Albumin 4.0 (3.5-5.0) g/dL Lipase 18 (8-78) U/L Urine Opiates Screen Not Detected (Not Detect) Urine Fentanyl Screen Not Detected (Not Detect) Ur Barbiturates Screen Not Detected (Not Detect) Ur Phencyclidine Scrn Not Detected (Not Detect) Ur Amphetamines Screen Not Detected (Not Detect) U Benzodiazepines Scrn Not Detected (Not Detect) Urine Cocaine Screen Not Detected (Not Detect) U Marijuana (THC) Screen Not Detected (Not Detect) Ethyl Alcohol 236 mg/dL Influenza Type A (PCR) POSITIVE A (Negative) Influenza Type B (PCR) NEGATIVE (Negative) RSV RNA Qual (PCR) NEGATIVE (Negative) SARS-CoV-2 RNA (RT-PCR) NEGATIVE (Negative) Independent Interpretation I performed an independent interpretation of an: Plain X-Ray Radiology Impression Discussion of test interpretation with radiology: I have reviewed the radiologist's reading. Discharge Plan Discharge Clinical Impression: Influenza, Bronchitis Patient Disposition: Home, Self-Care Instructions: Influenza (ED), Acute Bronchitis (ED) Additional Instructions: Drink plenty of fluids Medicine for cough as prescribed Antibiotic as prescribed Follow with PCP if not better Prescriptions: New benzonatate 200 mg capsule 200 mg PO TID PRN (Reason: cough) Qty: 30 0RF cefuroxime axetil 500 mg tablet 500 mg PO BID 7 Days Qty: 14 0RF No Action meloxicam 7.5 mg tablet 7.5 mg PO DAILY nicotine (polacrilex) 4 mg gum 4 mg PO Q4H PRN (Reason: Nicotine Cravings) hydroxyzine HCl 25 mg tablet 50 mg PO BEDTIME escitalopram oxalate 10 mg tablet 10 mg PO QAM turmeric 400 mg Capsule 1,600 mg PO DAILY naltrexone 50 mg tablet 50 mg PO QAM nicotine 21 mg/24 hr patch 24 hour 1 patch topical DAILY multivitamin Tablet 1 tab PO DAILY Eliquis DVT-PE Treat 30D Start 5 mg (74 tabs) tablets,dose pack 5 mg PO BID Qty: 74 0RF Rx Instructions: 10 mg (2 tabs) twice daily for 7 days, then 5 mg twice daily for life Interventions: ED Discharge Assessment Last Done: 02/09/24 20:45 Discharge Date/Time: 02/09/24 20:46
--- NOTE | 2024-02-09 13:35 | PC.NURSE ---
NA x 1 2220
[2024-02-09 14:23] LABS: MANUAL DIFF FLAG NO
[2024-02-09 14:24] LABS: Basophils Percent Auto 0.2 % (0-2); Hematocrit 44.4 % (42.0-52.0); Hemoglobin 15.3 g/dl (14.0-18.0); Imm Gran Abs Auto 0.02 X10*3/uL (0.00-0.03); Imm Gran Pct Auto 0.3 % (0.0-0.4); Lymphocytes Absolute Auto 0.6 X10*3/uL (1.2-4.9); Lymphocytes Percent Auto 9.7 % (20-40); Mean Corpuscular HGB Conc 34.5 g/dl (31.0-36.0); Mean Corpuscular Hemoglobin 32.8 pg (27.0-33.0); Mean Corpuscular Volume 95.1 fL (80.0-98.0); Mean Platelet Volume 8.2 fL (9.4-12.4); Monocytes Percent Auto 16.9 % (2-11); Neutrophils Absolute Auto 4.5 x10*3/uL (2.0-8.3); Neutrophils Percent Auto 72.9 % (45-73); Platelet Count 115 X10*3/uL (160-400); Red Blood Count 4.67 X10*6/uL (4.60-5.80); Red Cell Distribution Width 15.7 % (11.0-16.0); White Blood Count 6.1 X10*3/uL (4.8-10.8)
[2024-02-09 14:27] VITALS: BP 138/77; PULSE 93; RESP 16; TEMP 36.5; O2SAT 95; BMI 25.0
[2024-02-09 14:39] LABS: Alanine Aminotransferase 53 U/L (0-40); Alkaline Phosphatase 82 U/L (39-117); Anion Gap 25 (12-20); Aspartate Amino Transferase 70 U/L (5-37); Bilirubin Total 0.5 mg/dL (0.0-1.0); Blood Urea Nitrogen 23 mg/dL (9-16); Calcium 8.6 mg/dL (8.4-10.2); Carbon Dioxide 15 mmol/L (22-29); Chloride 100 mmol/L (96-108); Creatinine Clr Calc Pharmacy 76.5; Estimated Glomerular Filt Rate > 60; Ethanol 236 mg/dL; Glucose Random 181 mg/dL (60-115); Lipase 18 U/L (8-78); Potassium 3.8 mmol/L (3.3-5.1); Sodium 136 mmol/L (135-145); Total Protein 7.1 g/dL (6.5-8.0)
[2024-02-09 15:11] LABS: Influenza A PCR POSITIVE (Negative); Influenza B PCR NEGATIVE (Negative); Resp Syncy Virus RNA Qual PCR NEGATIVE (Negative); SARS COV2 PCR INHOUSE NEGATIVE (Negative)
[2024-02-09 15:58] LABS: Amphetamine Screen Urine Not Detected (Not Detect); Barbiturates, Urine Not Detected (Not Detect); Benzodiazepines Screen Urine Not Detected (Not Detect); Cannabinoid Screen Urine Not Detected (Not Detect); Cocaine Screen Urine Not Detected (Not Detect); Fentanyl, urine Not Detected (Not Detect); Opiate Screen Urine Not Detected (Not Detect); Phencyclidine Screen Urine Not Detected (Not Detect)
[2024-02-09 16:21] VITALS: BP 118/82; PULSE 118; RESP 18; TEMP 37.2; O2SAT 98
[2024-02-09 19:21] VITALS: BP 138/85; PULSE 90; RESP 17; TEMP 37.1; O2SAT 93; O2SAT 94
--- NOTE | 2024-02-09 19:30 | PC.NURSE ---
pt from home, a&ox4, respirations even and unlabored. pt reporting 3 days of nasal and chest congestion, reports intermittent cough, denies fever and chills.
[2024-02-09] MEDS: Benzonatate 100 MG CAPSULE 200 MG PO (20:42)
[2024-02-09] MEDS: cefuroxime axetiL 500 MG TABLET PO (20:42)
[2024-02-09 20:45] VITALS: BP 128/80; PULSE 95; RESP 18; TEMP 36.7; O2SAT 94
== END 2024-02-09 20:46 | disposition home or self-care (01) ==
PROVIDERS: Nurse Practitioner Family; Emergency Provider Internal Medicine; PCP Nurse Practitioner Family
DX: J10.1 Influenza due to other identified influenza virus with other respiratory manifestations (principal); J40 Bronchitis, not specified as acute or chronic; R05.9 Cough, unspecified; Z11.52 Encounter for screening for COVID-19; Z20.822 Contact with and (suspected) exposure to COVID-19; Z79.899 Other long term (current) drug therapy
CPT/HCPCS: 0241U; 36415; 71046; 80053; 80307; 83690; 85025; 99283; 99285

== ENCOUNTER 2024-04-19 18:08 | Emergency (ER) | payer MEDICAID, SELFPAY ==
[2024-04-19 18:17] VITALS: BP 121/80; PULSE 85; RESP 16; TEMP 36.5; O2SAT 87
[2024-04-19 18:19] VITALS: O2SAT 90
[2024-04-19 18:21] VITALS: BP 132/64; PULSE 97; O2SAT 94; BMI 26.6
--- NOTE | 2024-04-19 19:39 | ED.ALCOHOL ---
HPI - Alcohol General Chief Complaint: ETOH/Substance Use Stated Complaint: 8 bottles of vodka fall w/o headstrike or LOC Time Seen by Provider: 04/19/24 19:36 Source: patient Mode of arrival: EMS Limitations: no limitations History of Present Illness ED Provider: noreen HPI narrative: Patient alcoholic had 0.5 gal of vodka prior to arrival after learning that 2 of his friends of overdose feel depressed but denied any SI after arrival to the ER patient has moderate to go home does not want any help for detox Related Data Home Medications ?Medication ?Instructions ?Recorded ?Confirmed escitalopram oxalate 10 mg tablet 10 mg PO QAM 04/03/23 11/22/23 hydroxyzine HCl 25 mg tablet 50 mg PO BEDTIME 04/03/23 11/22/23 meloxicam 7.5 mg tablet 7.5 mg PO DAILY moderate pain 04/03/23 11/22/23 nicotine (polacrilex) 4 mg gum 4 mg PO Q4H PRN Nicotine Cravings 04/03/23 11/22/23 turmeric 400 mg capsule 1,600 mg PO DAILY 05/07/23 11/22/23 multivitamin 1 tab PO DAILY 11/22/23 11/22/23 naltrexone 50 mg tablet 50 mg PO QAM 11/22/23 11/22/23 nicotine 21 mg/24 hr daily 1 patch topical DAILY 11/22/23 11/22/23 transdermal patch Previous Rx's ?Medication ?Instructions ?Recorded apixaban 5 mg (74 tabs) tablets in 5 mg PO BID #74 ea 11/24/23 a dose pack (Eliquis DVT-PE Treat 30D Start) benzonatate 200 mg capsule 200 mg PO TID PRN cough #30 caps 02/09/24 cefuroxime axetil 500 mg tablet 500 mg PO BID 7 days #14 tabs 02/09/24 Allergies Allergy/AdvReac Type Severity Reaction Status Date / Time pollen extracts [POLLEN] Allergy Unknown UNKNOWN Verified 04/19/24 18:27 Review of Systems Review of Systems: Yes all other systems are reviewed and are negative PMFSH Social History Social History Household Members: None Housing: Apartment Do you presently have visiting nurse or other home services: No Alcohol intake: current Alcohol intake frequency: a few times a month Alcohol type: hard liquor Patient Tobacco Use Status: Former Tobacco user Tobacco use type: Cigarette Advance Directives: No Advance Directives Information Provided: No Do you have a plan to hurt others: No Plan service: No Physical Exam ED Vital Signs: Vital Signs - 24 hr 04/19/24 18:17 04/19/24 18:19 04/19/24 19:48 Temperature 97.7 F Pulse Rate 85 Respiratory Rate 16 Blood Pressure 121/80 Pulse Oximetry 87 L 90 L 94 Oxygen Delivery Method Room Air Nasal Cannula Room Air Oxygen Flow Rate 2 04/19/24 23:06 Temperature 97.7 F Pulse Rate 85 Respiratory Rate 16 Blood Pressure 121/80 Pulse Oximetry 94 Oxygen Delivery Method Room Air Oxygen Flow Rate BMI result Body Mass Index 26.6 Appearance: Alert. Oriented X3. No acute distress. Intoxicated Eyes: PERRLA, No Nystagmus ENT: Pharynx normal. Oral Mucosa moist AT NC Neck: Normal inspection. Neck supple. CVS: Normal heart rate and rhythm. Pulses normal. Respiratory: No respiratory distress. Equal air entry bilateral, no wheezing/rales/rhonchi Abdomen: Soft and nontender. Bowel sounds are present, no mass palpable, no CVA tenderness Skin: Skin warm and dry. Normal skin color. Normal skin turgor. Extremities: No lower extremity edema. No calf tenderness Neuro: Oriented X 3. No motor deficit. No sensory deficit.No cerebellar signs , cranial nerves II-XII intact Medical Decision Making Medical Decision Making MDM Narrative: Patient alcoholic walking in his steady gait refusing to stay in the hospital for detox will discharge patient home patient refused labs Discharge Plan Discharge Clinical Impression: Alcoholic intoxication Patient Disposition: Home, Self-Care Instructions: Alcohol Intoxication (ED) Additional Instructions: Stop drinking alcohol Prescriptions: No Action meloxicam 7.5 mg tablet 7.5 mg PO DAILY nicotine (polacrilex) 4 mg gum 4 mg PO Q4H PRN (Reason: Nicotine Cravings) hydroxyzine HCl 25 mg tablet 50 mg PO BEDTIME escitalopram oxalate 10 mg tablet 10 mg PO QAM turmeric 400 mg Capsule 1,600 mg PO DAILY naltrexone 50 mg tablet 50 mg PO QAM nicotine 21 mg/24 hr patch 24 hour 1 patch topical DAILY multivitamin Tablet 1 tab PO DAILY Eliquis DVT-PE Treat 30D Start 5 mg (74 tabs) tablets,dose pack 5 mg PO BID Qty: 74 0RF Rx Instructions: 10 mg (2 tabs) twice daily for 7 days, then 5 mg twice daily for life benzonatate 200 mg capsule 200 mg PO TID PRN (Reason: cough) Qty: 30 0RF cefuroxime axetil 500 mg tablet 500 mg PO BID 7 Days Qty: 14 0RF Interventions: ED Discharge Assessment Last Done: 04/19/24 23:06 Discharge Date/Time: 04/19/24 23:09 Print Language: Cameroonian
[2024-04-19 19:48] VITALS: O2SAT 94
--- NOTE | 2024-04-19 19:59 | MHC.EDTECH ---
Sia, and honorio bustamante given to patient
[2024-04-19 23:06] VITALS: BP 121/80; PULSE 85; RESP 16; TEMP 36.5; O2SAT 94
--- NOTE | 2024-04-19 23:08 | PC.NURSE ---
Patient belligerent with staff, demanding backpack with vodka bottle so he can get the fuck out of here . Security called, patient discharged, refused DC vitals,escorted out of ER, belongings returned to patient at [facility].
== END 2024-04-19 23:09 | disposition home or self-care (01) ==
PROVIDERS: Emergency Provider Internal Medicine
DX: F10.129 Alcohol abuse with intoxication, unspecified (principal); Y90.8 Blood alcohol level of 240 mg/100 ml or more; F33.1 Major depressive disorder, recurrent, moderate; Z87.891 Personal history of nicotine dependence; Z79.899 Other long term (current) drug therapy
CPT/HCPCS: 99283

== ENCOUNTER 2024-05-29 20:09 | Emergency (ER) | payer MEDICAID, SELFPAY ==
--- NOTE | ~2024-05-29 | CT_ITS ---
EXAMINATION: CT HEAD WITHOUT CONTRAST CLINICAL INFORMATION: Found down. COMPARISON: 02/01/2024 TECHNIQUE: Contiguous axial imaging was performed from the skull base to vertex without intravenous administration of contrast. This CT examination was performed using dose optimization techniques as appropriate, variously including the following: *Automated exposure control *Adjustment of mA and/or kV according to patient size (this includes techniques or standardized protocols for targeted exams where dose is matched to indication/reason for exam; i.e. extremities or head) *Use of iterative reconstruction technique DLP: 744 mGy-cm FINDINGS: There is mild cerebral volume loss with prominence of the lateral and third ventricles. The cortical sulci are widened appropriately. The fourth ventricle and basal cisterns are normally outlined. There is mild bilateral periventricular and central white matter image attenuation. There is no acute territorial defect, hemorrhage or midline shift. The extra-axial spaces are unremarkable. Calvarium/scalp: Intact. Maxillofacial sinuses and mastoids: Clear as visualized. CT/CT head/brain wo IV con IMPRESSION: 1. No acute intracranial process seen. 2. Mild cerebral volume loss with chronic small vessel ischemic changes.
[2024-05-29 20:19] VITALS: BP 150/88; PULSE 84; RESP 16; TEMP 36.9; O2SAT 98; BMI 25.7
[2024-05-29 20:20] VITALS: BP 136/86; PULSE 78; RESP 17; TEMP 36.8; O2SAT 94
--- NOTE | 2024-05-29 21:24 | ED_ITS ---
HPI - Alcohol General Chief Complaint: ETOH/Substance Use Stated Complaint: ETOH Time Seen by Provider: 05/29/24 21:21 Source: patient and EMS Mode of arrival: EMS Limitations: other (intoxicated) History of Present Illness ED Provider: Dr. Judith Vargas HPI narrative: Patient comes to the emergency room by ambulance. Patient was found by police department on the sidewalk, sleeping with a bottle of vodka that was half empty. When EMS patient to emergency room, patient seemed confused and was brought to the ED. at this time that I am evaluating the patient, patient is awake, alert and oriented x3. Patient states that he was drinking a lot of alcohol/vodka and laid himself down to sleep. Patient states that he did not fall or did not lose consciousness. Patient states that he has a lot of emotional pain but no physical injuries. Patient denies SI or HI. Patient states that he only drank alcohol, states that he has never used illicit drugs Related Data Home Medications ?Medication ?Instructions ?Recorded ?Confirmed escitalopram oxalate 10 mg tablet 10 mg PO QAM 04/03/23 11/22/23 hydroxyzine HCl 25 mg tablet 50 mg PO BEDTIME 04/03/23 11/22/23 meloxicam 7.5 mg tablet 7.5 mg PO DAILY moderate pain 04/03/23 11/22/23 nicotine (polacrilex) 4 mg gum 4 mg PO Q4H PRN Nicotine Cravings 04/03/23 11/22/23 turmeric 400 mg capsule 1,600 mg PO DAILY 05/07/23 11/22/23 multivitamin 1 tab PO DAILY 11/22/23 11/22/23 naltrexone 50 mg tablet 50 mg PO QAM 11/22/23 11/22/23 nicotine 21 mg/24 hr daily 1 patch topical DAILY 11/22/23 11/22/23 transdermal patch Previous Rx's ?Medication ?Instructions ?Recorded apixaban 5 mg (74 tabs) tablets in 5 mg PO BID #74 ea 11/24/23 a dose pack (Eliquis DVT-PE Treat 30D Start) benzonatate 200 mg capsule 200 mg PO TID PRN cough #30 caps 02/09/24 cefuroxime axetil 500 mg tablet 500 mg PO BID 7 days #14 tabs 02/09/24 Allergies Allergy/AdvReac Type Severity Reaction Status Date / Time pollen extracts [POLLEN] Allergy Unknown UNKNOWN Verified 05/29/24 20:21 Review of Systems Review of Systems: Constitutional : No Weight loss, No Fever, No Chills, No Night Sweats, No Fatigue, No Malaise ENT/Mouth : No Hearing loss, No Ear Pain, No Nasal Congestion, No Sinus Pain, No Hoarseness, No sore throat, No Rhinorrhea, No Swallowing Difficulty Eyes: No Eye Pain, No Swelling, No Redness, No Foreign Body, No Discharge, No Vision Changes Cardiovascular : No Chest Pain, No SOB, No Dyspnea on Exertion, No Orthopnea, No Edema, No Palpitations Respiratory : No Cough, No Sputum, No Wheezing, No Smoke Exposure, No Dyspnea Gastrointestinal : No Nausea, No Vomiting, No Diarrhea, No Constipation, No abdominal Pain, No Hematochezia, No Melena Genitourinary : no irregular bleeding, No Dysuria, No Urinary Frequency, No Hematuria, No Urinary Incontinence, No Urgency, No Flank Pain, No Urinary Flow Changes, No Hesitancy Musculoskeletal : No joint pain, No Myalgias, No Joint Swelling Skin : No Skin Lesions, No rash Neuro : No Weakness, No Numbness, No Paresthesias, No Loss of Consciousness, No Dizziness, No Headache Psych : No Anxiety/Panic, complaining of Depression, No SI/HI/AH/VH, admits to drinking alcohol Heme/Lymph: No Bruising, No Bleeding,No Lymphadenopathy Endocrine : No Polyuria, No Polydipsia, No Temperature Intolerance PMFSH Past Medical History Medical History (Updated 05/29/24 @ 21:28 by Judith Vargas MD) DVT (deep venous thrombosis) Alcohol use disorder, moderate, dependence Social History Social History Household Members: None Housing: Apartment Do you presently have visiting nurse or other home services: No Alcohol intake: current Alcohol intake frequency: a few times a month Alcohol type: hard liquor Patient Tobacco Use Status: Former Tobacco user Tobacco use type: Cigarette Advance Directives: No Advance Directives Information Provided: No Do you have a plan to hurt others: No Plan service: No Physical Exam ED Vital Signs: Vital Signs - 24 hr 05/29/24 20:19 05/29/24 20:20 05/30/24 05:25 Temperature 98.4 F 98.2 F 98.2 F Pulse Rate 84 78 67 Respiratory Rate 16 17 17 Blood Pressure 150/88 H 136/86 113/70 Pulse Oximetry 98 94 96 Oxygen Delivery Method Room Air Room Air Room Air BMI result Body Mass Index 25.7 Const Other: Appearance: Alert. Oriented X3. No acute distress. A bit slow to respond but coherent Eyes: Pupils equal, round and reactive to light. ENT: Pharynx normal. Neck: Normal inspection. Neck supple. No lymph nodes noted. No crepitus CVS: Normal heart rate and rhythm. Pulses normal. Normal S1 and S2 Respiratory: No respiratory distress. Breath sounds normal. No Wheezing. No rales Abdomen: Soft and nontender. No rigidity. No distention. Skin: Skin warm and dry. Normal skin color. Normal skin turgor. Extremities: No lower extremity edema. No Lacerations. No Rash Neuro: Oriented X 3. No motor deficit. No sensory deficit. Moving all extremities. No slurred speech. CN 2 through 12 grossly intact Psych: calm, cooperative, normal affect Course Course Course Narrative: -patient is alert and oriented x3, still a bit intoxicated but able to hold a coherent conversation -patient denies any SI or HI, denies any falls or any injuries. -patient admits to drinking alcohol heavily Medical Decision Making Medical Decision Making MDM Narrative: -my interpretation of head CT: No intracranial bleed -patient's vitals stable, blood pressure 136/86, pulse 78, oxygen saturation 94- 98% on room air -sleeping comfortably, wakes up to voice Plan: Metabolize to freedom -physician observation started at 00:25 -patient was under physician observation for 6 hours, at this time, 630, patient is awake, alert and oriented x3, ambulatory with good steady gait unassisted. Differential Diagnosis Differential Diagnoses: The differential diagnosis associated with the presentation includes (Alcohol intoxication, polysubstance abuse, intracranial bleed, contusion, polysubstance abuse) Admission/Observation Consideration of admission/observation: Escalation of care including admission/observation considered (Patient is under physician observation waiting to become sober.) Independent Interpretation I performed an independent interpretation of an: CT Scan Radiology Impression Discussion of test interpretation with radiology: I have reviewed the radiologist's reading. Radiologist Impression: There is mild cerebral volume loss with prominence of the lateral and third ventricles. The cortical sulci are widened appropriately. The fourth ventricle and basal cisterns are normally outlined. There is mild bilateral periventricular and central white matter image attenuation. There is no acute territorial defect, hemorrhage or midline shift. The extra-axial spaces are unremarkable. Calvarium/scalp: Intact. Maxillofacial sinuses and mastoids: Clear as visualized. CT/CT head/brain wo IV con IMPRESSION: 1. No acute intracranial process seen. 2. Mild cerebral volume loss with chronic small vessel ischemic changes. Discharge Plan Discharge Clinical Impression: Alcohol intoxication Patient Disposition: Home, Self-Care Instructions: Alcohol Intoxication (ED) Additional Instructions: Please follow-up with your primary care physician tomorrow. If you have any worsening or new symptoms, please return to the emergency room or call 911 Prescriptions: No Action meloxicam 7.5 mg tablet 7.5 mg PO DAILY nicotine (polacrilex) 4 mg gum 4 mg PO Q4H PRN (Reason: Nicotine Cravings) hydroxyzine HCl 25 mg tablet 50 mg PO BEDTIME escitalopram oxalate 10 mg tablet 10 mg PO QAM turmeric 400 mg Capsule 1,600 mg PO DAILY naltrexone 50 mg tablet 50 mg PO QAM nicotine 21 mg/24 hr patch 24 hour 1 patch topical DAILY multivitamin Tablet 1 tab PO DAILY Eliquis DVT-PE Treat 30D Start 5 mg (74 tabs) tablets,dose pack 5 mg PO BID Qty: 74 0RF Rx Instructions: 10 mg (2 tabs) twice daily for 7 days, then 5 mg twice daily for life benzonatate 200 mg capsule 200 mg PO TID PRN (Reason: cough) Qty: 30 0RF cefuroxime axetil 500 mg tablet 500 mg PO BID 7 Days Qty: 14 0RF Print Language: Dominican
[2024-05-30 05:25] VITALS: BP 113/70; PULSE 67; RESP 17; TEMP 36.8; O2SAT 96
[2024-05-30 07:34] VITALS: BP 145/88; RESP 14; TEMP 37; O2SAT 96
[2024-05-30 07:36] VITALS: BP 145/88; PULSE 67; RESP 14; TEMP 37; O2SAT 96
== END 2024-05-30 07:36 | disposition home or self-care (01) ==
PROVIDERS: Emergency Provider Emergency Medicine; PCP Nurse Practitioner Family
DX: F10.220 Alcohol dependence with intoxication, uncomplicated (principal); Y90.9 Presence of alcohol in blood, level not specified
CPT/HCPCS: 70450; 99283; 99284

== ENCOUNTER 2024-06-15 10:17 | Emergency (ER) | payer MEDICAID, SELFPAY ==
--- NOTE | ~2024-06-15 | XR_ITS ---
Exams: Chest 2 views and bilateral hips 6 views HISTORY: Hypoxia and pain COMPARISON: 04/10/2024 FINDINGS: Chest 2 views images no focal infiltrate. No focal abnormality. Heart and mediastinal normal. Lungs clear. No pleural effusion. Minimal peribronchial thickening noted. Bilateral hips demonstrates arthroplasty changes bilaterally. There is no evidence of any hardware failure or loosening grossly. No acute deformity. No fracture. Pubic bones intact. Orientation of the left acetabular component appears unchanged from baseline. Moderate heterotopic ossification laterally noted. XR/XR hips EMMETT min 3V IMPRESSION: No focal infiltrate or effusion. Minimal peribronchial thickening is nonspecific. No acute findings within either hip. No evidence of any hardware failure.
--- NOTE | ~2024-06-15 | XR_ITS ---
Exams: Chest 2 views and bilateral hips 6 views HISTORY: Hypoxia and pain COMPARISON: 04/10/2024 FINDINGS: Chest 2 views images no focal infiltrate. No focal abnormality. Heart and mediastinal normal. Lungs clear. No pleural effusion. Minimal peribronchial thickening noted. Bilateral hips demonstrates arthroplasty changes bilaterally. There is no evidence of any hardware failure or loosening grossly. No acute deformity. No fracture. Pubic bones intact. Orientation of the left acetabular component appears unchanged from baseline. Moderate heterotopic ossification laterally noted. XR/XR chest 2V IMPRESSION: No focal infiltrate or effusion. Minimal peribronchial thickening is nonspecific. No acute findings within either hip. No evidence of any hardware failure.
[2024-06-15 10:22] VITALS: BP 116/68; PULSE 90; O2SAT 95
[2024-06-15 10:23] VITALS: BP 116/69; PULSE 90; RESP 16; TEMP 37.2; O2SAT 91; BMI 26.6
--- NOTE | 2024-06-15 10:30 | ECG_ITS ---
Test Reason : ETOH Blood Pressure : / mmHG Vent. Rate : 077 BPM Atrial Rate : 077 BPM P-R Int : 168 ms QRS Dur : 084 ms QT Int : 386 ms P-R-T Axes : 006 080 036 degrees QTc Int : 436 ms Normal sinus rhythm Low voltage QRS Cannot rule out Anterior infarct , age undetermined Abnormal ECG No previous ECGs available Referred By: Diomedes Hein Electronically Signed By:Lionel Mallory
--- NOTE | 2024-06-15 10:32 | ED.GENADULT ---
HPI - General Adult General Chief complaint: ETOH/Substance Use Stated complaint: ETOH Time Seen by Provider: 06/15/24 10:27 Source: patient and EMS Mode of arrival: EMS Limitations: altered mental status (Change sensorium secondary to alcohol intoxication) History of Present Illness ED Provider: DR. Hein HPI narrative: 63-year-old male well known to us came in by EMS after was found in the parking lot drunk. patient admitted to drinking plenty of alcohol since last night. Able to answer most of the question in the emergency department found to be hypoxic 91% on room air, no coughing, no shortness of breath, no CP. Patient also is intoxicated declined any SI or HI, patient declined detox offer pain History of bilateral THR in 2008 but live with chronic pain to the left hip, declined any recent fall or injury to the hip. Related Data Home Medications ?Medication ?Instructions ?Recorded ?Confirmed escitalopram oxalate 10 mg tablet 10 mg PO QAM 04/03/23 11/22/23 hydroxyzine HCl 25 mg tablet 50 mg PO BEDTIME 04/03/23 11/22/23 meloxicam 7.5 mg tablet 7.5 mg PO DAILY moderate pain 04/03/23 11/22/23 nicotine (polacrilex) 4 mg gum 4 mg PO Q4H PRN Nicotine Cravings 04/03/23 11/22/23 turmeric 400 mg capsule 1,600 mg PO DAILY 05/07/23 11/22/23 multivitamin 1 tab PO DAILY 11/22/23 11/22/23 naltrexone 50 mg tablet 50 mg PO QAM 11/22/23 11/22/23 nicotine 21 mg/24 hr daily 1 patch topical DAILY 11/22/23 11/22/23 transdermal patch Previous Rx's ?Medication ?Instructions ?Recorded apixaban 5 mg (74 tabs) tablets in 5 mg PO BID #74 ea 11/24/23 a dose pack (Eliquis DVT-PE Treat 30D Start) benzonatate 200 mg capsule 200 mg PO TID PRN cough #30 caps 02/09/24 cefuroxime axetil 500 mg tablet 500 mg PO BID 7 days #14 tabs 02/09/24 Allergies Allergy/AdvReac Type Severity Reaction Status Date / Time pollen extracts [POLLEN] Allergy Unknown UNKNOWN Verified 06/15/24 10:28 Review of Systems Review of Systems: All other systems are reviewed and are negative Constitutional: Reports as per HPI and Reports no additional constitutional complaints Eyes: Reports as per HPI and Reports no additional eye complaints Reports system reviewed and no additional complaints, except as documented Cardiovascular: Reports as per HPI and Reports no additional cardiovascular complaints Respiratory: Reports as per HPI and Reports no additional respiratory complaints Gastrointestinal: Reports as per HPI and Reports no additional gastrointestinal complaints Genitourinary: Reports no additional female genitourinary complaints Musculoskeletal: Reports no additional musculoskeletal complaints Skin/Breast: Reports system reviewed and no additional complaints, except as docu Psychiatric: Reports no additional psychiatric complaints Endocrine: Reports no additional endocrine complaints Hematologic/Lymphatic: Reports no additional hematologic/lymphatic complaints Allergic/Immunologic: Reports no additional allergic/immunologic complaints Reports system reviewed and no additional complaints, except as documented and Reports Abnormal speech present [facility] Past Medical History Medical History DVT (deep venous thrombosis) Alcohol use disorder, moderate, dependence Social History Social History Household Members: None Housing: Apartment Do you presently have visiting nurse or other home services: No Alcohol intake: current Alcohol intake frequency: a few times a month Alcohol type: hard liquor Patient Tobacco Use Status: Former Tobacco user Tobacco use type: Cigarette Advance Directives: No service: No Physical Exam ED Vital Signs: Vital Signs - 24 hr 06/15/24 10:23 06/15/24 11:35 06/15/24 12:00 Temperature 98.9 F 98.1 F Pulse Rate 90 82 83 Respiratory Rate 16 16 16 Blood Pressure 116/69 100/63 Pulse Oximetry 91 L 95 96 Oxygen Delivery Method Room Air Nasal Cannula Nasal Cannula Oxygen Flow Rate 2 2 06/15/24 15:27 Temperature 98.1 F Pulse Rate 90 Respiratory Rate 16 Blood Pressure 133/86 Pulse Oximetry 95 Oxygen Delivery Method Room Air Oxygen Flow Rate BMI result Body Mass Index 26.6 Vital signs have been reviewed and appear to be correct. Blood pressure elevated. Heart rate normal. Respiratory rate normal. Temperature normal. Oxygen saturation normal. Appearance: Alcohol on breath, Alert. Oriented X3. No acute distress. Head: Normal external exam. Normocephalic. Atraumatic. No Ellison signs noted. No raccoon eyes noted Eyes: PERRLA. EOMI. Conjunctiva and sclera normal. Eyelids normal. ENT: TM's Normal. Pharynx normal. Uvula midline. Moist mucous membranes. No trismus noted. No drooling noted. No muffled voice noted. Neck: Normal inspection. Neck supple. FROM. No adenopathy. Thyroid Normal. No meningeal signs. No neck mass noted. CVS: Normal heart rate and rhythm. Heart sound normal. No murmurs noted. Pulses normal throughout. Respiratory: No respiratory distress. Painless inspiration. Breath sounds normal. No wheezes/rales/rhonchi noted. Chest nontender. No accessory muscle usage noted or decreased air movement noted. Abdomen: Soft and nontender. Bowel sounds normal in all 4 quadrants. No distention noted. No organomegaly noted. No visible injury noted. Back: No CVA tenderness. Full range of motion noted. Skin: Skin warm and dry. Normal skin color. Normal skin turgor. No rashes/lesions/lacerations noted. Extremities: No lower extremity swelling or tenderness, bilateral hip inspection is normal, no deformity. Neuro: Oriented X 3. Cranial nerve exam: II-XII are grossly intact No motor deficit. No sensory deficit. Reflexes normal. Course Reevaluation(s) Reevaluation #1: Patient is ambulating in the emergency department unsteady gait, asking to be discharged, patient is AAO x3, no SI, no HI. Time: 16:17 Medications Administered Generic Name Dose Route Start Last Admin Trade Name Freq PRN Reason Stop Dose Admin Nicotine Polacrilex 2 mg 06/15/24 13:56 06/15/24 14:00 Nicotine Polacrilex 2 Mg Gum BUCCAL 2 mg TID PRN Administration Nausea Discontinued Medications Generic Name Dose Route Start Last Admin Trade Name Freq PRN Reason Stop Dose Admin Sodium Chloride 1,000 mls @ 999 mls/hr 06/15/24 10:29 06/15/24 12:44 Ns IV 06/15/24 11:29 Infused .Q1H1M ONE Infusion Nicotine Polacrilex 2 mg 06/15/24 11:22 06/15/24 11:33 Nicotine Polacrilex 2 Mg Gum BUCCAL 06/15/24 11:23 2 mg ONCE ONE Administration Medical Decision Making Differential Diagnosis Differential Diagnoses: The differential diagnosis associated with the presentation includes (Alcohol intoxication, electrolyte derangement, severe anemia, hip fracture) Admission/Observation Consideration of admission/observation: Escalation of care including admission/observation considered Lab Data MDM Lab Attestation statement: I reviewed the patient's lab results. 06/15/24 11:01 06/15/24 11:01 Labs: Lab Results 06/15/24 Range/Units 11:01 WBC 3.7 L (4.8-10.8) X10*3/uL RBC 4.25 L (4.60-5.80) X10*6/uL Hgb 13.9 L (14.0-18.0) g/dl Hct 40.6 L (42.0-52.0) % MCV 95.5 (80.0-98.0) fL MCH 32.7 (27.0-33.0) pg MCHC 34.2 (31.0-36.0) g/dl RDW 13.9 (11.0-16.0) % Plt Count 252 D (160-400) X10*3/uL MPV 8.0 L (9.4-12.4) fL Immature Gran % (Auto) 0.5 H (0.0-0.4) % Neut % (Auto) 63.6 (45-73) % Lymph % (Auto) 27.0 (20-40) % Dougherty % (Auto) 7.6 (2-11) % Eos % (Auto) 0.5 (0-4) % Baso % (Auto) 0.8 (0-2) % Lymph # (Auto) 1.0 L (1.2-4.9) X10*3/uL Dougherty # (Auto) 0.3 (0.1-1.2) X10*3/uL Eos # (Auto) 0.0 (0.0-0.4) X10*3/uL Baso # (Auto) 0.0 (0.0-0.2) X10*3/uL Abs Immat Gran (auto) 0.02 (0.00-0.03) X10*3/uL Absolute Neuts (auto) 2.3 (2.0-8.3) x10*3/uL Absolute Nucleated RBC 0.000 (0.0-0.012) X10*3/uL Nucleated RBC % (auto) 0.0 (0.0-0.2) /100WBC Sodium 148 H (135-145) mmol/L Potassium 3.5 (3.3-5.1) mmol/L Chloride 110 H (96-108) mmol/L Carbon Dioxide 23 (22-29) mmol/L Anion Gap 19 (12-20) BUN 17 H (9-16) mg/dL Creatinine 0.91 (0.5-1.4) mg/dL Estim Creat Clear Calc 84.1 Estimated GFR > 60 Random Glucose 85 (60-115) mg/dL Calcium 9.1 (8.4-10.2) mg/dL Total Bilirubin 0.3 (0.0-1.0) mg/dL Direct Bilirubin 0.1 (0.0-0.5) mg/dL AST 23 (5-37) U/L ALT 20 (0-40) U/L Alkaline Phosphatase 49 (39-117) U/L Troponin I High Sens < 2.7 (<3.5-35.0) ng/L B-Natriuretic Peptide < 10 (<100) pg/mL Total Protein 6.6 (6.5-8.0) g/dL Albumin 4.2 (3.5-5.0) g/dL Lipase 14 (8-78) U/L Ethyl Alcohol 324 H* mg/dL Independent Interpretation I performed an independent interpretation of an: Plain X-Ray (Chest:No focal infiltrate or effusion. Minimal peribronchial thickening is nonspecific. No acute findings within either hip. No evidence of any hardware failure. ) Radiology Impression Discussion of test interpretation with radiology: I have reviewed the radiologist's reading. Discharge Plan Discharge Clinical Impression: Alcoholic intoxication Patient Disposition: Home, Self-Care Instructions: Alcohol Intoxication (ED) Prescriptions: No Action meloxicam 7.5 mg tablet 7.5 mg PO DAILY nicotine (polacrilex) 4 mg gum 4 mg PO Q4H PRN (Reason: Nicotine Cravings) hydroxyzine HCl 25 mg tablet 50 mg PO BEDTIME escitalopram oxalate 10 mg tablet 10 mg PO QAM turmeric 400 mg Capsule 1,600 mg PO DAILY naltrexone 50 mg tablet 50 mg PO QAM nicotine 21 mg/24 hr patch 24 hour 1 patch topical DAILY multivitamin Tablet 1 tab PO DAILY Eliquis DVT-PE Treat 30D Start 5 mg (74 tabs) tablets,dose pack 5 mg PO BID Qty: 74 0RF Rx Instructions: 10 mg (2 tabs) twice daily for 7 days, then 5 mg twice daily for life benzonatate 200 mg capsule 200 mg PO TID PRN (Reason: cough) Qty: 30 0RF cefuroxime axetil 500 mg tablet 500 mg PO BID 7 Days Qty: 14 0RF Print Language: [place]
[2024-06-15 11:05] LABS: MANUAL DIFF FLAG NO
[2024-06-15 11:08] LABS: Basophils Percent Auto 0.8 % (0-2); Eosinophils Percent Auto 0.5 % (0-4); Hematocrit 40.6 % (42.0-52.0); Hemoglobin 13.9 g/dl (14.0-18.0); Imm Gran Abs Auto 0.02 X10*3/uL (0.00-0.03); Imm Gran Pct Auto 0.5 % (0.0-0.4); Mean Corpuscular HGB Conc 34.2 g/dl (31.0-36.0); Mean Corpuscular Hemoglobin 32.7 pg (27.0-33.0); Mean Corpuscular Volume 95.5 fL (80.0-98.0); Monocytes Absolute Auto 0.3 X10*3/uL (0.1-1.2); Monocytes Percent Auto 7.6 % (2-11); Neutrophils Absolute Auto 2.3 x10*3/uL (2.0-8.3); Neutrophils Percent Auto 63.6 % (45-73); Platelet Count 252 X10*3/uL (160-400); Red Blood Count 4.25 X10*6/uL (4.60-5.80); Red Cell Distribution Width 13.9 % (11.0-16.0); White Blood Count 3.7 X10*3/uL (4.8-10.8)
[2024-06-15 11:28] LABS: Ethanol 324 mg/dL
[2024-06-15 11:31] LABS: Alanine Aminotransferase 20 U/L (0-40); Albumin Level 4.2 g/dL (3.5-5.0); Alkaline Phosphatase 49 U/L (39-117); Anion Gap 19 (12-20); Aspartate Amino Transferase 23 U/L (5-37); Bilirubin Direct 0.1 mg/dL (0.0-0.5); Bilirubin Total 0.3 mg/dL (0.0-1.0); Blood Urea Nitrogen 17 mg/dL (9-16); Calcium 9.1 mg/dL (8.4-10.2); Carbon Dioxide 23 mmol/L (22-29); Chloride 110 mmol/L (96-108); Creatinine Clr Calc Pharmacy 84.1; Estimated Glomerular Filt Rate > 60; Glucose Random 85 mg/dL (60-115); Lipase 14 U/L (8-78); Potassium 3.5 mmol/L (3.3-5.1); Sodium 148 mmol/L (135-145); Total Protein 6.6 g/dL (6.5-8.0)
[2024-06-15] MEDS: Nicotine Polacrilex 2 MG GUM BUCCAL ×2 (11:33→14:00)
[2024-06-15] MEDS: 0.9 % Sodium Chloride 1,000 ML 999 ML IV (11:33)
[2024-06-15 11:34] LABS: B Type Natriuretic Peptide < 10 pg/mL (<100)
[2024-06-15 11:35] VITALS: PULSE 82; RESP 16; O2SAT 95
[2024-06-15 11:39] LABS: Troponin-I High Sensitivity < 2.7 ng/L (<3.5-35.0)
[2024-06-15 12:00] VITALS: BP 100/63; PULSE 83; RESP 16; TEMP 36.7; O2SAT 96
[2024-06-15 15:27] VITALS: BP 133/86; PULSE 90; RESP 16; TEMP 36.7; O2SAT 95
[2024-06-15 19:05] VITALS: BP 133/86; PULSE 90; RESP 16; TEMP 36.7; O2SAT 95
== END 2024-06-15 19:07 | disposition home or self-care (01) ==
PROVIDERS: Emergency Provider Emergency Medicine
DX: F10.220 Alcohol dependence with intoxication, uncomplicated (principal); Y90.8 Blood alcohol level of 240 mg/100 ml or more; R09.02 Hypoxemia; Z86.718 Personal history of other venous thrombosis and embolism; Z79.01 Long term (current) use of anticoagulants; Z79.899 Other long term (current) drug therapy
CPT/HCPCS: 36415; 71046; 73522; 80048; 80076; 80307; 83690; 83880; 84484; 85025; 93005; 96360; 99284

== ENCOUNTER → 2024-06-15 10:30 | Outpatient (BNV) | payer MEDICAID, SELFPAY | PROVIDERS: Emergency Provider Emergency Medicine; Visit Provider Internal Medicine Cardiovascular Disease | DX: R94.31 Abnormal electrocardiogram [ECG] [EKG] (principal) | CPT/HCPCS: 93010 ==

== ENCOUNTER 2024-06-25 11:16 | Emergency (ER) | payer MEDICAID, SELFPAY ==
--- NOTE | ~2024-06-25 | XR_ITS ---
EXAMINATION: XR AP PELVIS, LEFT HIP CLINICAL INFORMATION: Fall COMPARISON: 06/15/2024 TECHNIQUE: AP pelvis Two views of the left hip. FINDINGS: Bony pelvis is intact. Pedicles and SI joints within normal limits. Bilateral hip replacements unchanged, distal aspect of the right femoral prosthetic component not included. Left acetabular and femoral prosthetic components appear intact without evidence of loosening, fracture or dislocation. Radiopaque suture material seen in the upper medial left thigh. Left hip soft tissue calcifications and phleboliths. XR/XR hip LT w [id number] IMPRESSION: Bilateral total hip replacements. No acute bony pathology.
[2024-06-25 11:32] VITALS: BP 137/91; BP 142/82; PULSE 101; RESP 18; TEMP 37.3; O2SAT 96; O2SAT 99; BMI 26.0
--- NOTE | 2024-06-25 12:56 | ED.FALL ---
HPI - Fall General Chief Complaint: Fall Stated Complaint: LLE PAIN/WEAK, ETOH USE PER EMS Time Seen by Provider: 06/25/24 12:52 Source: patient Mode of arrival: EMS Limitations: no limitations History of Present Illness HPI Narrative: This is 63 years old male with history of alcohol abuse DJD for presented to the emergency room after fall. He states that his left leg gave up he states that he had total hip replacement in the left side and needs to be revised. The social history of alcohol abuse. The he has been seen in this emergency room several times intoxicated with alcohol. MD complaint: fall Onset (ago): hour(s) (2) Fall from: standing Place fall occurred: other ([facility]) Loss of consciousness: none Prolonged down time: no Symptoms prior to fall: none Context: tripped/slipped Severity: mild Quality: burning Associated symptoms (after fall): denies Related Data Home Medications ?Medication ?Instructions ?Recorded ?Confirmed escitalopram oxalate 10 mg tablet 10 mg PO QAM 04/03/23 11/22/23 hydroxyzine HCl 25 mg tablet 50 mg PO BEDTIME 04/03/23 11/22/23 meloxicam 7.5 mg tablet 7.5 mg PO DAILY moderate pain 04/03/23 11/22/23 nicotine (polacrilex) 4 mg gum 4 mg PO Q4H PRN Nicotine Cravings 04/03/23 11/22/23 turmeric 400 mg capsule 1,600 mg PO DAILY 05/07/23 11/22/23 multivitamin 1 tab PO DAILY 11/22/23 11/22/23 naltrexone 50 mg tablet 50 mg PO QAM 11/22/23 11/22/23 nicotine 21 mg/24 hr daily 1 patch topical DAILY 11/22/23 11/22/23 transdermal patch Previous Rx's ?Medication ?Instructions ?Recorded apixaban 5 mg (74 tabs) tablets in 5 mg PO BID #74 ea 11/24/23 a dose pack (Eliquis DVT-PE Treat 30D Start) benzonatate 200 mg capsule 200 mg PO TID PRN cough #30 caps 02/09/24 cefuroxime axetil 500 mg tablet 500 mg PO BID 7 days #14 tabs 02/09/24 Allergies Allergy/AdvReac Type Severity Reaction Status Date / Time pollen extracts [POLLEN] Allergy Unknown UNKNOWN Verified 06/25/24 11:33 Review of Systems Constitutional: Constitutional: Reports no additional constitutional complaints ENT: Reports system reviewed and no additional complaints, except as documented Respiratory: Respiratory: Reports no additional respiratory complaints Psychiatric: Psychiatric: Reports no additional psychiatric complaints [facility] Past Medical History Attestation statement: The following information was validated with the patient. Medical History DVT (deep venous thrombosis) Alcohol use disorder, moderate, dependence Social History Social History Household Members: None Housing: Apartment Do you presently have visiting nurse or other home services: No Alcohol intake: current Alcohol intake frequency: a few times a month Alcohol type: hard liquor Patient Tobacco Use Status: Former Tobacco user Tobacco use type: Cigarette Smoked in Last 30 Days: No Use of substances other than those prescribed or required for medical reasons: No Advance Directives: No Advance Directives Information Provided: Yes service: No Physical Exam Vital Signs: Vital Signs: Last Vital Signs Temp 98.2 F 06/25/24 13:02 Pulse 106 H 06/25/24 13:02 Resp 16 06/25/24 13:02 BP 131/89 06/25/24 13:02 Pulse Ox 93 06/25/24 13:02 O2 Del Method Room Air 06/25/24 13:02 BMI result Body Mass Index 26.0 He looks well is not toxic-appearing Const: General: cooperative Orientation/consciousness: patient oriented x3 Limitations: no limitations HEENT: Head: Yes normal to inspection Face and sinus: Yes normal facial exam Mouth: Normal oral and palatal mucosa present Throat: Yes posterior oropharynx normal Neck: Neck: Yes normal visual inspection Chest: Chest palpation & inspection: normal inspection of the chest Resp: Effort & Inspection: normal respiratory effort Auscultation: clear to auscultation bilaterally Cardio: Jugular venous distension: no JVD Rate: regular rate Rhythm: regular rhythm GI: Inspection: Yes normal to inspection Palpation (GI): Soft to palpation, not firm and nontender Percussion: Yes normal to percussion Skin: General skin exam: no rashes or lesions noted and elasticity normal Lesions: no lesions Rashes: no rashes Neuro: General: patient oriented x3 Cranial nerves: Yes CN's II-XII intact bilaterally Course Reevaluation(s) Reevaluation #1: Pt eloped with steady gait Time: :36 Time: 13:36 Medical Decision Making Medical Decision Making [facility] Narrative: Patient presented fall complaining of left hip pain will obtain x-ray Differential Diagnosis Differential Diagnoses: The differential diagnosis associated with the presentation includes Fracture of the left the/dislocation/contusion Admission/Observation Consideration of admission/observation: Escalation of care including admission/observation considered Independent Interpretation I performed an independent interpretation of an: Plain X-Ray Interpretation: No fracture or dislocation Radiology Impression Discussion of test interpretation with radiology: I have reviewed the radiologist's reading. Discharge Plan Discharge Clinical Impression: Alcoholism Fall Qualifiers: Encounter type: initial encounter Qualified Code(s): W19.XXXA - Unspecified fall, initial encounter Contusion of hip, left Qualifiers: Encounter type: initial encounter Qualified Code(s): S70.02XA - Contusion of left hip, initial encounter Patient Disposition: Elopement Prescriptions: No Action meloxicam 7.5 mg tablet 7.5 mg PO DAILY nicotine (polacrilex) 4 mg gum 4 mg PO Q4H PRN (Reason: Nicotine Cravings) hydroxyzine HCl 25 mg tablet 50 mg PO BEDTIME escitalopram oxalate 10 mg tablet 10 mg PO QAM turmeric 400 mg Capsule 1,600 mg PO DAILY naltrexone 50 mg tablet 50 mg PO QAM nicotine 21 mg/24 hr patch 24 hour 1 patch topical DAILY multivitamin Tablet 1 tab PO DAILY Eliquis DVT-PE Treat 30D Start 5 mg (74 tabs) tablets,dose pack 5 mg PO BID Qty: 74 0RF Rx Instructions: 10 mg (2 tabs) twice daily for 7 days, then 5 mg twice daily for life benzonatate 200 mg capsule 200 mg PO TID PRN (Reason: cough) Qty: 30 0RF cefuroxime axetil 500 mg tablet 500 mg PO BID 7 Days Qty: 14 0RF Discharge Date/Time: 06/25/24 13:30 Print Language: Bulgarian
[2024-06-25 13:02] VITALS: BP 131/89; PULSE 106; RESP 16; TEMP 36.8; O2SAT 93
--- NOTE | 2024-06-25 13:28 | PC.NURSE ---
Patient provided with food and fluids multiple times , stating he wants to leave. Provider aware and said patient can sign out ama. Patient got dressed, refused to sign ama paperwork stating he knows he needs hip surgery and he needs to leave. Gait steady, patient exited ED. Provider aware
== END 2024-06-25 13:30 | disposition left against medical advice (07) ==
PROVIDERS: Emergency Provider Emergency Medicine; PCP Family Medicine
DX: F10.20 Alcohol dependence, uncomplicated (principal); Y90.9 Presence of alcohol in blood, level not specified; S70.02XA Contusion of left hip, initial encounter; W01.0XXA Fall on same level from slipping, tripping and stumbling without subsequent striking against object, initial encounter; Z91.81 History of falling; Y93.89 Activity, other specified; Y92.22 Religious institution as the place of occurrence of the external cause; Y99.9 Unspecified external cause status
CPT/HCPCS: 73502; 99283; 99284

== ENCOUNTER 2024-07-20 17:22 | Emergency (ER) | payer MEDICAID, SELFPAY ==
[2024-07-20 17:28] VITALS: BP 136/86; BP 146/99; PULSE 110; PULSE 99; RESP 18; TEMP 36.6; O2SAT 94; O2SAT 99; BMI 26.4
--- NOTE | 2024-07-20 17:34 | ED_ITS ---
HPI - Alcohol General Chief Complaint: ETOH/Substance Use Stated Complaint: ETOH found in residence by PD Time Seen by Provider: 07/20/24 17:26 Source: patient and EMS Mode of arrival: EMS Limitations: other History of Present Illness ED Provider: Dr. Judith Vargas HPI narrative: Patient comes to the emergency room by ambulance. According to EMS, somebody called PD, seems that there was a concern about the patient's well-being. PD found the patient in his apartment, drinking alcohol. Patient has no complaints other than chronic hip pain, states he needs a hip replacement in the next 3 years and chronic right shoulder pain. Patient states that he did not fall, did not hit his head, no new injuries at this time. Related Data Home Medications ?Medication ?Instructions ?Recorded ?Confirmed escitalopram oxalate 10 mg tablet 10 mg PO QAM 04/03/23 11/22/23 hydroxyzine HCl 25 mg tablet 50 mg PO BEDTIME 04/03/23 11/22/23 meloxicam 7.5 mg tablet 7.5 mg PO DAILY moderate pain 04/03/23 11/22/23 nicotine (polacrilex) 4 mg gum 4 mg PO Q4H PRN Nicotine Cravings 04/03/23 11/22/23 turmeric 400 mg capsule 1,600 mg PO DAILY 05/07/23 11/22/23 multivitamin 1 tab PO DAILY 11/22/23 11/22/23 naltrexone 50 mg tablet 50 mg PO QAM 11/22/23 11/22/23 nicotine 21 mg/24 hr daily 1 patch topical DAILY 11/22/23 11/22/23 transdermal patch Previous Rx's ?Medication ?Instructions ?Recorded apixaban 5 mg (74 tabs) tablets in 5 mg PO BID #74 ea 11/24/23 a dose pack (Eliquis DVT-PE Treat 30D Start) benzonatate 200 mg capsule 200 mg PO TID PRN cough #30 caps 02/09/24 cefuroxime axetil 500 mg tablet 500 mg PO BID 7 days #14 tabs 02/09/24 Allergies Allergy/AdvReac Type Severity Reaction Status Date / Time pollen extracts [POLLEN] Allergy Unknown UNKNOWN Verified 07/20/24 17:35 Review of Systems 2 Review of Systems: Constitutional : No Weight loss, No Fever, No Chills, No Night Sweats, No Fatigue, No Malaise ENT/Mouth : No Hearing loss, No Ear Pain, No Nasal Congestion, No Sinus Pain, No Hoarseness, No sore throat, No Rhinorrhea, No Swallowing Difficulty Eyes: No Eye Pain, No Swelling, No Redness, No Foreign Body, No Discharge, No Vision Changes Cardiovascular : No Chest Pain, No SOB, No Dyspnea on Exertion, No Orthopnea, No Edema, No Palpitations Respiratory : No Cough, No Sputum, No Wheezing, No Smoke Exposure, No Dyspnea Gastrointestinal : No Nausea, No Vomiting, No Diarrhea, No Constipation, No abdominal Pain, No Hematochezia, No Melena Genitourinary : no irregular bleeding, No Dysuria, No Urinary Frequency, No Hematuria, No Urinary Incontinence, No Urgency, No Flank Pain, No Urinary Flow Changes, No Hesitancy Musculoskeletal complaining of chronic bilateral hip pain in right shoulder pain. No falls., No Myalgias, No Joint Swelling Skin : No Skin Lesions, No rash Neuro : No Weakness, No Numbness, No Paresthesias, No Loss of Consciousness, No Dizziness, No Headache Psych : No Anxiety/Panic, No Depression, No SI/HI/AH/VH, admits to heavily drinking alcohol every day, considering detox Heme/Lymph: No Bruising, No Bleeding,No Lymphadenopathy Endocrine : No Polyuria, No Polydipsia, No Temperature Intolerance [facility] Past Medical History Medical History DVT (deep venous thrombosis) Alcohol use disorder, moderate, dependence Social History Social History Household Members: None Housing: Apartment Do you presently have visiting nurse or other home services: No Alcohol intake: current Alcohol intake frequency: 3 or more drinks per day Alcohol type: hard liquor Patient Tobacco Use Status: Former Tobacco user Tobacco use type: Cigarette Use of substances other than those prescribed or required for medical reasons: No Advance Directives: No Advance Directives Information Provided: No Do you have a plan to hurt others: No Plan service: No Physical Exam ED Vital Signs: Vital Signs - 24 hr 07/20/24 17:28 07/20/24 20:03 Temperature 97.9 F 98.1 F Pulse Rate 99 93 Respiratory Rate 18 16 Blood Pressure 146/99 H 109/74 Pulse Oximetry 99 96 Oxygen Delivery Method Room Air Room Air BMI result Body Mass Index 26.4 Const Other: Appearance: Alert. Oriented X3. No acute distress. Intoxicated but answering questions Eyes: Pupils equal, round and reactive to light. ENT: Pharynx normal. Neck: Normal inspection. Neck supple. No lymph nodes noted. No crepitus CVS: Normal heart rate and rhythm. Pulses normal. Normal S1 and S2 Respiratory: No respiratory distress. Breath sounds normal. No Wheezing. No rales Abdomen: Soft and nontender. No rigidity. No distention. Skin: Skin warm and dry. Normal skin color. Normal skin turgor. Extremities: No lower extremity edema. No Lacerations. No Rash Neuro: Oriented X 3. No motor deficit. No sensory deficit. Moving all extremities. No slurred speech. CN 2 through 12 grossly intact Psych: calm, cooperative, intoxicated Course Course Course Narrative: -all of patient's labs pending -patient has no injuries, reports no falls -patient states that he is considering detox -patient denies SI or HI, patient is on a Section 12 -care team consult pending -physician observation started at 17:40 Medical Decision Making Medical Decision Making [facility] Narrative: My interpretation of labs, hematology and chemistry at baseline, no obvious abnormality, until alcohol level positive. -at 21:13, patient is awake, alert and oriented, clinically sober, ambulating by himself. Requesting to be discharged home. -patient was reassessed, patient is not SI, no HI, clinically sober the patient's request, patient being discharged. Patient no longer wants to wait to be evaluated or help with detox Differential Diagnosis Differential Diagnoses: The differential diagnosis associated with the presentation includes (Alcohol dependence, alcohol intoxication, polysubstance abuse, depression) Admission/Observation Consideration of admission/observation: Escalation of care including admission/observation considered (Patient waiting to become clinically sober to talk to the care team for possible detox treatment) Lab Data 07/20/24 18:09 07/20/24 18:09 Labs: Lab Results 07/20/24 Range/Units 18:09 WBC 5.3 (4.8-10.8) X10*3/uL RBC 4.70 (4.60-5.80) X10*6/uL Hgb 15.5 (14.0-18.0) g/dl Hct 43.1 (42.0-52.0) % MCV 91.7 (80.0-98.0) fL MCH 33.0 (27.0-33.0) pg MCHC 36.0 (31.0-36.0) g/dl RDW 13.7 (11.0-16.0) % Plt Count 159 L D (160-400) X10*3/uL MPV 7.8 L (9.4-12.4) fL Immature Gran % (Auto) 0.9 H (0.0-0.4) % Neut % (Auto) 66.1 (45-73) % Lymph % (Auto) 25.3 (20-40) % Blair % (Auto) 7.1 (2-11) % Eos % (Auto) 0.0 (0-4) % Baso % (Auto) 0.6 (0-2) % Lymph # (Auto) 1.4 (1.2-4.9) X10*3/uL Blair # (Auto) 0.4 (0.1-1.2) X10*3/uL Eos # (Auto) 0.0 (0.0-0.4) X10*3/uL Baso # (Auto) 0.0 (0.0-0.2) X10*3/uL Abs Immat Gran (auto) 0.05 H (0.00-0.03) X10*3/uL Absolute Neuts (auto) 3.5 (2.0-8.3) x10*3/uL Absolute Nucleated RBC 0.000 (0.0-0.012) X10*3/uL Nucleated RBC % (auto) 0.0 (0.0-0.2) /100WBC Sodium 142 (135-145) mmol/L Potassium 3.7 (3.3-5.1) mmol/L Chloride 101 (96-108) mmol/L Carbon Dioxide 21 L (22-29) mmol/L Anion Gap 24 H (12-20) BUN 16 (9-16) mg/dL Creatinine 0.82 (0.5-1.4) mg/dL Estim Creat Clear Calc 93.4 Estimated GFR > 60 Random Glucose 89 (60-115) mg/dL Calcium 8.9 (8.4-10.2) mg/dL Total Bilirubin 0.5 (0.0-1.0) mg/dL Direct Bilirubin 0.2 (0.0-0.5) mg/dL AST 39 H (5-37) U/L ALT 23 (0-40) U/L Alkaline Phosphatase 65 (39-117) U/L Total Protein 6.8 (6.5-8.0) g/dL Albumin 4.3 (3.5-5.0) g/dL Ethyl Alcohol 361 H* mg/dL Medications Administered Discontinued Medications Generic Name Dose Route Start Last Admin Trade Name Freq PRN Reason Stop Dose Admin Nicotine Polacrilex 2 mg 07/20/24 20:21 07/20/24 20:25 Nicotine Polacrilex 2 Mg Gum BUCCAL 07/20/24 20:22 2 mg ONCE ONE Administration Discharge Plan Discharge Clinical Impression: Alcohol use disorder, moderate, dependence Patient Disposition: Home, Self-Care Instructions: Abuse of Alcohol (ED), Alcohol Intoxication (ED) Additional Instructions: Please follow-up with your primary care physician tomorrow. If you have any worsening or new symptoms, please return to the emergency room or call 911 Prescriptions: No Action meloxicam 7.5 mg tablet 7.5 mg PO DAILY nicotine (polacrilex) 4 mg gum 4 mg PO Q4H PRN (Reason: Nicotine Cravings) hydroxyzine HCl 25 mg tablet 50 mg PO BEDTIME escitalopram oxalate 10 mg tablet 10 mg PO QAM turmeric 400 mg Capsule 1,600 mg PO DAILY naltrexone 50 mg tablet 50 mg PO QAM nicotine 21 mg/24 hr patch 24 hour 1 patch topical DAILY multivitamin Tablet 1 tab PO DAILY Eliquis DVT-PE Treat 30D Start 5 mg (74 tabs) tablets,dose pack 5 mg PO BID Qty: 74 0RF Rx Instructions: 10 mg (2 tabs) twice daily for 7 days, then 5 mg twice daily for life benzonatate 200 mg capsule 200 mg PO TID PRN (Reason: cough) Qty: 30 0RF cefuroxime axetil 500 mg tablet 500 mg PO BID 7 Days Qty: 14 0RF Print Language: Argentine
[2024-07-20 18:14] LABS: Basophils Percent Auto 0.6 % (0-2); Hematocrit 43.1 % (42.0-52.0); Hemoglobin 15.5 g/dl (14.0-18.0); Imm Gran Abs Auto 0.05 X10*3/uL (0.00-0.03); Imm Gran Pct Auto 0.9 % (0.0-0.4); Lymphocytes Absolute Auto 1.4 X10*3/uL (1.2-4.9); Lymphocytes Percent Auto 25.3 % (20-40); MANUAL DIFF FLAG NO; Mean Corpuscular Volume 91.7 fL (80.0-98.0); Mean Platelet Volume 7.8 fL (9.4-12.4); Monocytes Absolute Auto 0.4 X10*3/uL (0.1-1.2); Monocytes Percent Auto 7.1 % (2-11); Neutrophils Absolute Auto 3.5 x10*3/uL (2.0-8.3); Neutrophils Percent Auto 66.1 % (45-73); Platelet Count 159 X10*3/uL (160-400); Red Cell Distribution Width 13.7 % (11.0-16.0); White Blood Count 5.3 X10*3/uL (4.8-10.8)
--- NOTE | 2024-07-20 18:17 | MHC.EDTECH ---
Patient was biba ,vitals taken ,blood drawn and sent to lab ,Patient was change into hospital all Patient belongings are locked up in [facility] locker #1 .
[2024-07-20 18:32] LABS: Alanine Aminotransferase 23 U/L (0-40); Albumin Level 4.3 g/dL (3.5-5.0); Alkaline Phosphatase 65 U/L (39-117); Anion Gap 24 (12-20); Aspartate Amino Transferase 39 U/L (5-37); Bilirubin Direct 0.2 mg/dL (0.0-0.5); Bilirubin Total 0.5 mg/dL (0.0-1.0); Blood Urea Nitrogen 16 mg/dL (9-16); Calcium 8.9 mg/dL (8.4-10.2); Carbon Dioxide 21 mmol/L (22-29); Chloride 101 mmol/L (96-108); Creatinine Clr Calc Pharmacy 93.4; Estimated Glomerular Filt Rate > 60; Ethanol 361 mg/dL; Glucose Random 89 mg/dL (60-115); Potassium 3.7 mmol/L (3.3-5.1); Sodium 142 mmol/L (135-145); Total Protein 6.8 g/dL (6.5-8.0)
[2024-07-20 20:03] VITALS: BP 109/74; PULSE 93; RESP 16; TEMP 36.7; O2SAT 96
--- NOTE | 2024-07-20 20:03 | MHC.EDTECH ---
Patient had a couple of puddings for snack .
[2024-07-20] MEDS: Nicotine Polacrilex 2 MG GUM BUCCAL (20:25)
[2024-07-20 21:19] VITALS: BP 109/74; PULSE 93; RESP 16; TEMP 36.7; O2SAT 96
[2024-07-20 21:25] LABS: Amphetamine Screen Urine Not Detected (Not Detect); Barbiturates, Urine Not Detected (Not Detect); Benzodiazepines Screen Urine Not Detected (Not Detect); Buprenorphine Scr Not Detected (Not Detect); Cannabinoid Screen Urine Not Detected (Not Detect); Cocaine Screen Urine Not Detected (Not Detect); Fentanyl, urine Not Detected (Not Detect); Methadone Screen, Urine Not Detected (Not Detect); Opiate Screen Urine Not Detected (Not Detect); Oxycodone Screen Urine Not Detected (Not Detect); Phencyclidine Screen Urine Not Detected (Not Detect)
== END 2024-07-20 21:25 | disposition home or self-care (01) ==
PROVIDERS: Emergency Provider Emergency Medicine; PCP Nurse Practitioner Family
DX: F10.20 Alcohol dependence, uncomplicated (principal); Y90.8 Blood alcohol level of 240 mg/100 ml or more; G89.29 Other chronic pain; Z79.899 Other long term (current) drug therapy
CPT/HCPCS: 36415; 80048; 80076; 80307; 85025; 99284

== ENCOUNTER 2024-07-23 15:30 | Emergency (ER) | payer MEDICAID, SELFPAY ==
[2024-07-23 15:34] VITALS: BP 122/80; PULSE 104; O2SAT 95; BMI 25.8
--- NOTE | 2024-07-23 15:40 | PC.NURSE ---
patient changed over by security - belongings obtained/placed in C2. pt currently now resting in no apparent distress w/ eyes closed. no sob/wob noted. respirations even/unlabored. plan of care ongoing.
[2024-07-23 16:01] VITALS: BP 118/94; PULSE 92; RESP 16; TEMP 36.8; O2SAT 98
--- NOTE | 2024-07-23 16:10 | ECG_ITS ---
Test Reason : TOX EVAL Blood Pressure : / mmHG Vent. Rate : 088 BPM Atrial Rate : 088 BPM P-R Int : 154 ms QRS Dur : 082 ms QT Int : 398 ms P-R-T Axes : 059 -11 032 degrees QTc Int : 481 ms Normal sinus rhythm Prolonged QT Nonspecific T wave abnormality Abnormal ECG When compared with ECG of 15-JUN-2024 10:54, Questionable change in QRS axis Referred By: Ari Anders Electronically Signed By:NÉSTOR RODRIGUEZ
[2024-07-23 16:12] LABS: MANUAL DIFF FLAG NO
[2024-07-23 16:16] LABS: Basophils Percent Auto 0.5 % (0-2); Eosinophils Absolute Auto 0.1 X10*3/uL (0.0-0.4); Eosinophils Percent Auto 1.1 % (0-4); Hematocrit 45.7 % (42.0-52.0); Imm Gran Abs Auto 0.04 X10*3/uL (0.00-0.03); Imm Gran Pct Auto 0.7 % (0.0-0.4); Lymphocytes Absolute Auto 1.4 X10*3/uL (1.2-4.9); Lymphocytes Percent Auto 24.7 % (20-40); Mean Corpuscular Hemoglobin 32.7 pg (27.0-33.0); Mean Corpuscular Volume 93.5 fL (80.0-98.0); Mean Platelet Volume 8.2 fL (9.4-12.4); Monocytes Absolute Auto 0.4 X10*3/uL (0.1-1.2); Monocytes Percent Auto 7.3 % (2-11); Neutrophils Absolute Auto 3.6 x10*3/uL (2.0-8.3); Neutrophils Percent Auto 65.7 % (45-73); Platelet Count 109 X10*3/uL (160-400); Red Blood Count 4.89 X10*6/uL (4.60-5.80); Red Cell Distribution Width 14.4 % (11.0-16.0); White Blood Count 5.5 X10*3/uL (4.8-10.8)
[2024-07-23] MEDS: Thiamine HCL 100 MG TABLET PO (16:18)
[2024-07-23] MEDS: Nicotine Polacrilex 2 MG GUM BUCCAL (16:18)
[2024-07-23] MEDS: Folic Acid 1 MG TABLET PO (16:18)
--- NOTE | 2024-07-23 16:18 | PC.NURSE ---
pt medicated per provider order. pt requesting nicotine gum. provider notified/aware.
--- OUTSIDE RECORDS SUMMARY | 2024-07-23 16:24 | XMS_ITS | Continuity of Care Document ---
Author Organization [facility] ter Address [address] [place] [id number]- Care Team Providers Care Investigative Assistant Name Role Phone Layla LANDRUM, Bety Pino Primary Care Physician Encounter [facility] Date(s): 08/22/22 - 08/25/[address] [address] Discharge Disposition: A-D/C Home Attending Physician: Felecia Young MD Admitting Physician: Felecia Young MD Referring Physician: Not on Staff, Referring MD Allergies, Adverse Reactions, Alerts Substance Reaction Severity Status Pollen Active Immunizations Given and Recorded Vaccine Date Status Refusal Reason influenza virus vaccine, inactivated 08/24/22 Give n influenza virus vaccine, inactivated 07/13/20 Wade rded influenza virus vaccine, inactivated 11/13/17 Wade rded influenza virus vaccine, inactivated 09/23/16 Wade rded influenza virus vaccine, inactivated 01/22/16 Wade rded influenza virus vaccine, inactivated 10/03/13 Wade rded influenza virus vaccine, inactivated 10/18/12 Wade rded tetanus/diphtheria/pertussis, acel(Tdap) 03/11/22 Recorded SARS-CoV-2 (COVID-19) mRNA-1273 vaccine 11/11/21 R ecorded SARS-CoV-2 (COVID-19) mRNA-1273 vaccine 01/26/21 R ecorded SARS-CoV-2 (COVID-19) mRNA-1273 vaccine 12/25/20 R ecorded tetanus-diphtheria toxoids (Td) 04/21/19 Recorded tetanus-diphtheria toxoids (Td) 09/11/09 Recorded pneumococcal 23-valent vaccine 11/29/16 Given Medications apixaban 5 mg oral tablet 2 tablet = 10 mg, By Mouth, 2 times a day, # 24 tablet, 0 Refills, Maintenance, 08/24/22 20:36:00 EDT, Tablet, [facility], Partial fill upon patient request if the prescription is for aschedule II opioid drug., 175, cm, 08/24/22 16:30:0... Start Date: 08/24/22 Stop Date: 08/30/22 Status: Ordered apixaban 5 mg oral tablet 1 tablet = 5 mg, By Mouth, 2 times a day, # 120 tablet, 0 Refills, Maintenance, 08/24/22 20:36:00 EDT, Tablet, [facility], Partial fill upon patient request if the prescription is for aschedule II opioid drug., 08/30/22, 175, cm, ... Start Date: 08/24/22 Stop Date: 10/23/22 Status: Ordered atorvastatin 40 mg oral tablet 1 tablet = 40 mg, By Mouth, Daily at bedtime, Maintenance, 08/23/22 15:13:00 EDT, Tablet, Partial fill upon patient request if the prescription is for a schedule II opioid drug. Start Date: 08/23/22 Status: Ordered docusate sodium 100 mg oral capsule 100 mg, 1, capsule, By Mouth, 2 times a day, # 60 capsule, Refills 0, Tot. Refills 0, Maintenance, 08/24/22 20:37:00 EDT, Route to Pharmacy Electronically, [facility], Partial fill uponpatient request if the prescription is for a schedu... Start Date: 08/24/22 Status: Ordered escitalopram 10 mg oral tablet 1 tablet = 10 mg, By Mouth, Daily, Maintenance, 02/02/22 15:16:00 EDT, Tablet, Partial fill upon patient request if the prescription is for a schedule II opioid drug. Start Date: 02/02/22 Status: Ordered meloxicam 7.5 mg oral tablet 1 tablet = 7.5 mg, By Mouth, Daily, Maintenance, 02/02/22 15:17:00 EDT, Tablet, Partial fill upon patient request if the prescription is for a schedule II opioid drug. Start Date: 02/02/22 Status: Ordered Multivitamin 1 tablet, By Mouth, Daily, Maintenance, 02/02/22 15:25:00 EDT, Partial fill upon patient request ifthe prescription is for a schedule II opioid drug. Start Date: 02/02/22 Status: Ordered naltrexone 50 mg oral tablet 1 tablet = 50 mg, By Mouth, Daily, 0 Refills, Maintenance, 08/31/21 10:35:00 EDT, Partial fill uponpatient request if the prescription is for a schedule II opioid drug. Start Date: 08/31/21 Status: Ordered traZODone 50 mg oral tablet 50 mg, 1, tablet, By Mouth, Daily at bedtime, # 3 capsule, Refills 0, Tot. Refills 0, Maintenance, 02/11/20 14:17:00 EDT, Route to Pharmacy Electronically, [id number], 176, cm, 02/11/20 14:13:00 EDT, Height, 82, kg, 02/11/20 14:13:00... Start Date: 02/11/20 Status: Ordered Turmeric 1 capsule, By Mouth, Daily, Maintenance, 02/02/22 15:31:00 EDT, Partial fill upon patient request if the prescription is for a schedule II opioid drug. Start Date: 02/02/22 Status: Ordered Results Radiology Reports * Exam Date Time Procedure Performing Provider Status 08/23/22 12:45 PM Chest 2 Views Frontal and Lat Glo Johnson (Verified) Notes: (Chest 2 Views Frontal and Lat) Reason For Exam: Other: RESULT: Chest 2 Views Frontal and Lat Chest 2 Views Frontal and Lat HISTORY: Abdominal pain. Left lower quadrant pain. COMPARISON: Radiograph 02/02/2022. FINDINGS: LINES AND TUBES: None. LUNGS AND PLEURA: Clear lungs. Normal pulmonary vascularity. No pleural effusion. No pneumothorax. HEART, MEDIASTINUM AND JACKI: Heart is normal in size. Normal mediastinal and hilar contour. BONES AND SOFT TISSUES: No acute abnormality. IMPRESSION: No acute abnormality. I have personally reviewed the images and I agree with this report. WSN: [id number] Ordering Physician: Pj Ortiz Dictated By: Mc Rowan MD Dictated Date/Time: 08/23/22 1:51 pm Reviewed By: Benigno Noel MD Signed By: Benigno Noel MD Signed Date/Time: 08/23/22 1:56 pm Transcribed By: GARLAND Transcribed Date/Time: 08/23/22 1:19 pm Vital Signs Most recent to oldest [Reference Range]: 1 2 3 Height 175 cm (08/24/22 4:30 PM) 175 cm (08/24/22 11:56 AM) 175 cm (08/24/22 8:47 AM) Weight 82 kg (08/23/22 6:39 PM) Oxygen Saturation [94-100 %] 92 % *L* (08/25/22 7:00 AM) 94 % (08/25/22 4:00 AM) 97 % (08/24/22 7:00 PM) Pulse Rate [55-90 bpm] 72 bpm (08/25/22 7:00 AM) 52 bpm *L* (08/25/22 4:00 AM) 68 bpm (08/24/22 7:00 PM) Body Mass Index [18.5-24.99 kg/m2] 26.78 kg/m2 *H* (08/23/22 6:39 PM) Blood Pressure [90-138/55-84 mm Hg] 121/81mm Hg (08/25/22 7:00 AM) 114/66mm Hg (08/25/22 4:00 AM) 134/81mm Hg (08/24/22 7:00 PM) Respiratory Rate [16-30 br/min] 18 br/min (08/25/22 7:00 AM) 18 br/min (08/25/22 4:00 AM) 18 br/min (08/24/22 7:00 PM) Temperature [96.8-100.4 DegF] 98.3 DegF (08/25/22 7:00 AM) 97.7 DegF (08/25/22 4:00 AM) 98.4 DegF (08/24/22 7:00 PM) Liters per Minute 2 L/min (08/23/22 6:09 PM) Mode of Delivery (Oxygen) Room air (08/25/22 7:00 AM) Room air (08/25/22 4:00 AM) Room air (08/24/22 7:00 PM) Blood pressure sites Arm, left (08/25/22 7:00 AM) Arm, left (08/25/22 4:00 AM) Arm, left (08/24/22 7:00 PM) Temperature Route Oral (08/25/22 7:00 AM) Oral (08/25/22 4:00 AM) Oral (08/24/22 7:00 PM) Dry Weight 82 kg (08/23/22 6:39 PM) Social History Social History Type Response Smoking Status Current every day sm oker; Other: chewing tobacco; entered on: 11/28/16 Sex Note * [facility] , CIS S: TRANSCRIBE Mc Rowan MD: SIGN Benigno Noel MD: VERIFY Event Display: Result: Authored Date: [id number] Chest 2 Views Frontal and Lat HISTORY: Abdominal pain. Left lower quadrant pain. COMPARISON: Radiograph 02/02/2022. FINDINGS: LINES AND TUBES: None. LUNGS AND PLEURA: Clear lungs. Normal pulmonary vascularity. No pleural effusion. No pneumothorax. HEART, MEDIASTINUM AND JACKI: Heart is normal in size. Normal mediastinal and hilar contour. BONES AND SOFT TISSUES: No acute abnormality. IMPRESSION: No acute abnormality. I have personally reviewed the images and I agree with this report. WSN: [id number] Ordering Physician: Pj Ortiz Dictated By: Mc Rowan MD Dictated Date/Time: 08/23/22 1:51 pm Reviewed By: Benigno Noel MD Signed By: Benigno Noel MD Signed Date/Time: 08/23/22 1:56 pm Transcribed By: GARLAND Transcribed Date/Time: 08/23/22 1:19 pm Patient Care team information Personnel Name: Bety Rich NP Address: Address: [address] [place] [id number]
--- OUTSIDE RECORDS SUMMARY | 2024-07-23 16:24 | XMS_ITS | Continuity of Care Document ---
Author Organization [facility] Address [address] [place] [address]- Care Team Providers Care Tobacco Stripping Machine Operator Name Role Phone Gen Jeronimo Primary Care Physician [phone] Encounter [facility] Date(s): 01/10/20 - 01/10/[address] [address] [facility] [phone] Discharge Disposition: A-D/C Home Attending Physician: Edd Allen MD Admitting Physician: Edd Allen MD Referring Physician: Not on Staff, Referring MD Allergies, Adverse Reactions, Alerts Substance Reaction Severity Status Pollen Active Immunizations Given and Recorded Vaccine Date Status Refusal Reason pneumococcal 23-valent vaccine 11/29/16 Given Medications apixaban 5 mg oral tablet 1 tablet = 5 mg, By Mouth, 2 times a day, # 60 tablet, 0 Refills, Maintenance, 02/24/18 18:31:34 EDT, Tablet Start Date: 02/24/18 Status: Ordered citalopram 20 mg oral tablet 20 mg, By Mouth, Daily, # 30 tablet, Refills 1, Tot. Refills 1, Maintenance, 12/02/16 7:24:27, Print Requisition Start Date: 12/02/16 Status: Ordered folic acid 1 mg oral tablet 1 mg, 1, tablet, By Mouth, Daily, # 30 tablet, Refills 0, Tot. Refills 0, Maintenance, 09/10/17 14:11:52, Route to Pharmacy Electronically, [id number], [facility] [id number] Start Date: 09/10/17 Stop Date: 10/10/17 Status: Ordered gabapentin 600 mg oral tablet 1 tablet = 600 mg, By Mouth, 2 times a day, # 60 tablet, 1 Refills, Maintenance, 12/02/16 7:25:48 Start Date: 12/02/16 Status: Ordered haloperidol 5 mg oral tablet 5 mg, By Mouth, Daily at bedtime, # 30 tablet, Refills 1, Tot. Refills 1, Maintenance, 02/21/17 11:03:20, Route to Pharmacy Electronically, [id number], [facility] [id number] Start Date: 02/21/17 Status: Ordered Nicorette Fruit Chill 4 mg oral transmucosal gum 1 each = 4 mg, Chew, Every hour, PRN as needed for smoking cessation, # 160 each, 1 Refills, Maintenance, 02/21/17 11:04:49, Gum Start Date: 02/21/17 Status: Ordered traZODone 50 mg oral tablet 50 mg, By Mouth, Daily at bedtime, PRN, # 30 tablet, Refills 1, Tot. Refills 1, Maintenance, Insomnia, 12/02/16 7:24:53, Print Requisition Start Date: 12/02/16 Status: Ordered Vital Signs Most recent to oldest [Reference Range]: 1 2 3 Height 176 cm (01/10/20 4:11 PM) 176 cm (01/10/20 11:56 AM) 176 cm (01/10/20 11:26 AM) Weight 82 kg (01/10/20 4:11 PM) 82 kg (01/10/20 11:56 AM) 82 kg (01/10/20 11:26 AM) Oxygen Saturation [94-100 %] 95 % (01/10/20 4:11 PM) 94 % (01/10/20 11:26 AM) Pulse Rate [55-90 bpm] 94 bpm *H* (01/10/20 4:11 PM) 92 bpm *H* (01/10/20 11:26 AM) Body Mass Index [18.5-24.99] 26.47 *H* (01/10/20 4:11 PM) 26.47 *H* (01/10/20 11:26 AM) Blood Pressure [90-138/55-84 mm Hg] 125/86mm Hg (01/10/20 4:11 PM) 129/87mm Hg (01/10/20 11:26 AM) Respiratory Rate [16-30 br/min] 18 br/min (01/10/20 4:11 PM) 18 br/min (01/10/20 2:00 PM) 16 br/min (01/10/20 11:26 AM) Temperature [96.8-100.4 DegF] 97.7 DegF (01/10/20 11:26 AM) Mode of Delivery (Oxygen) Room air (01/10/20 4:11 PM) Room air (01/10/20 2:00 PM) Room air (01/10/20 11:26 AM) Blood pressure sites Arm, right (01/10/20 4:11 PM) Arm, left (01/10/20 11:26 AM) Temperature Route Oral (01/10/20 11:26 AM) Dry Weight 82 kg (01/10/20 4:11 PM) 82 kg (01/10/20 11:56 AM) 82 kg (01/10/20 11:26 AM) Weight Obtained Via Patient/family state d (01/10/20 11:26 AM) Dry Weight Obtained Via Patient/family s tated (01/10/20 11:26 AM) Social History Social History Type Response Smoking Status Current every day carlos pearl; Other: chewing tobacco; entered on: 11/28/16 Sex
--- OUTSIDE RECORDS SUMMARY | 2024-07-23 16:24 | XMS_ITS | Continuity of Care Document ---
Author Organization [facility] Address [address] [place] [address]- Care Team Providers Care Meter Reader Name Role Phone Layla LANDRUM, Bety Pino Primary Care Physician [phone] Encounter [facility] Date(s): 12/24/21 - 01/23/22 [facility] [address] [place] [address]- Attending Physician: Isac Fung Admitting Physician: AdmIsac hadley Referring Physician: AdmtrIsac Allergies, Adverse Reactions, Alerts Substance Reaction Severity Status Pollen Active Immunizations Given and Recorded Vaccine Date Status Refusal Reason pneumococcal 23-valent vaccine 11/29/16 Given Medications citalopram 20 mg oral tablet 20 mg, 1, tablet, By Mouth, Daily, Refills 0, Maintenance, 09/09/21 9:50:00 EDT, Partial fill upon patient request if the prescription is for a schedule II opioid drug. Start Date: 09/09/21 Status: Ordered gabapentin 300 mg oral capsule 600 mg, 2, capsule, By Mouth, 3 times a day, # 180 capsule, Refills 0, Tot. Refills 0, Maintenance,09/09/21 9:49:00 EDT, Route to Pharmacy Electronically, [id number], Partial fill upon patient request if the prescription is for a ken... Start Date: 09/09/21 Status: Ordered meloxicam 5 mg oral capsule 1 capsule = 5 mg, By Mouth, Daily, # 30 capsule, 0 Refills, Maintenance, 02/11/20 14:17:00 EDT, Capsule, [facility] #[id number], 176, cm, 02/11/20 14:13:00 EDT, Height, 82, kg, 02/11/20 14:13:00EDT, Dry Weight Start Date: 02/11/20 Status: Ordered naltrexone 50 mg oral tablet 1 tablet = 50 mg, By Mouth, Daily, 0 Refills, Maintenance, 08/31/21 10:35:00 EDT, Partial fill uponpatient request if the prescription is for a schedule II opioid drug. Start Date: 08/31/21 Status: Ordered Nicotine 2 mg gum = 2 mg, Chew, Every hour, PRN Other, Nicotine Cravings, # 160 each, 0 Refills, Maintenance, 09/09/21 9:51:00 EDT, Gum, [facility][id number], Partial fill upon patient request if the prescription is for a schedule II opioid drug., 170, cm, 09/09... Start Date: 09/09/21 Status: Ordered traZODone 50 mg oral tablet 50 mg, 1, tablet, By Mouth, Daily at bedtime, # 3 capsule, Refills 0, Tot. Refills 0, Maintenance, 02/11/20 14:17:00 EDT, Route to Pharmacy Electronically, [facility][id number], 176, cm, 02/11/20 14:13:00 EDT, Height, 82, kg, 02/11/20 14:13:00... Start Date: 02/11/20 Status: Ordered Social History Social History Type Response Smoking Status Current every day sm oker; Other: chewing tobacco; entered on: 11/28/16 Sex
--- OUTSIDE RECORDS SUMMARY | 2024-07-23 16:24 | XMS_ITS | Continuity of Care Document ---
Author Organization [facility] Address [address] [place] [address]- Care Team Providers Care Highway Maintenance Crew Worker Name Role Phone Layla LANDRUM, Bety Pino Primary Care Physician [phone] Encounter [facility] [place] Date(s): 10/21/21 - 10/22/[address] [address]- Discharge Disposition: A-D/C Home Attending Physician: Matt Alegria MD Admitting Physician: Shelli CANO, Natalie Archibald Referring Physician: Not on Staff, Referring MD [...] Maintenance,09/09/21 9:49:00 EDT, Route to Pharmacy Electronically, [id number], Partial fill upon patient request if the prescription is for a ken... Start Date: 09/09/21 Status: Ordered gabapentin 300 mg oral capsule 600 mg, Capsule, By Mouth, 10/22/21 9:00:00 EST Start Date: 10/22/21 Stop Date: 10/22/21 Status: Completed meloxicam 5 mg oral capsule 1 capsule = 5 mg, By Mouth, Daily, # 30 capsule, 0 Refills, Maintenance, 02/11/20 14:17:00 EDT, Capsule, [facility] #[id number], 176, cm, 02/11/20 14:13:00 EDT, Height, 82, [...] 0 Refills, Maintenance, 09/09/21 9:51:00 EDT, Gum, [facility] #[id number], Partial fill upon patient request if the prescription is for a schedule II opioid drug., 170, cm, 09/09... Start Date: 09/09/21 Status: Ordered traZODone 50 mg oral tablet 50 mg, 1, tablet, By Mouth, Daily at bedtime, # 3 capsule, Refills 0, Tot. Refills 0, Maintenance, 02/11/20 14:17:00 EDT, Route to Pharmacy Electronically, [facility] #[id number], 176, cm, 02/11/20 14:13:00 EDT, Height, 82, kg, 02/11/20 14:13:00... Start Date: 02/11/20 Status: Ordered Results Radiology Reports * Exam Date Time Procedure Performing Provider Status 10/20/21 10:44 PM Chest Portable Short , Kathi; Auth (V erified) Notes: (Chest Portable) Reason For Exam: Shortness of Breath RESULT: Chest Portable Chest Portable Indication: Found down outside detox Center. Shortness of breath. COMPARISON: 11/27/2016. FINDINGS: LINES AND TUBES: None. LUNGS AND PLEURA: Low lung volumes with mild basilar atelectasis. Lungs are otherwise clear with no consolidation. No pleural effusion. No pneumothorax. HEART, MEDIASTINUM AND JACKI: Heart is normal in size. Normal upper mediastinal and hilar contour. BONES AND SOFT TISSUES: No acute abnormality. IMPRESSION: No acute abnormality. WSN: [id number] Ordering Physician: Tacho Wu Dictated By: Fox Sherman MD Dictated Date/Time: 10/20/21 10:43 p Reviewed By: Fox Sherman MD Signed By: Fox Sherman MD Signed Date/Time: 10/20/21 10:43 pm Transcribed By: GARLAND Transcribed Date/Time: 10/20/21 10:42 pm Vital Signs Most recent to oldest [Reference Range]: 1 2 3 Height 175 cm (10/22/21 7:40 AM) 175 cm (10/22/21 4:43 AM) 175 cm (10/22/21 12:34 AM) Weight 78.8 kg (10/21/21 3:10 AM) 83.5 kg (10/21/21 2:06 AM) 83.5 kg (10/20/21 12:38 PM) Oxygen Saturation [94-100 %] 99 % (10/22/21 7:40 AM) 98 % (10/22/21 4:43 AM) 97 % (10/22/21 12:34 AM) Pulse Rate [55-90 bpm] 68 bpm (10/22/21 7:40 AM) 72 bpm (10/22/21 5:38 AM) 72 bpm (10/22/21 4:43 AM) Body Mass Index [18.5-24.99] 25.73 *H* (10/21/21 3:10 AM) 27.27 *H* (10/21/21 2:06 AM) Blood Pressure [90-138/55-84 mm Hg] 141/88mm Hg *H* (10/22/21 7:40 AM) 134/94mm Hg (10/22/21 5:38 AM) 134/94mm Hg (10/22/21 4:43 AM) Respiratory Rate [16-30 br/min] 18 br/min (10/22/21 8:32 AM) 18 br/min (10/22/21 7:40 AM) 20 br/min (10/22/21 5:38 AM) Temperature [96.8-100.4 DegF] 97.5 DegF (10/22/21 7:40 AM) 97.6 DegF (10/22/21 5:38 AM) 97.6 DegF (10/22/21 4:43 AM) Liters per Minute 2 L/min (10/22/21 12:34 AM) 2 L/min (10/21/21 7:26 PM) 2 L/min (10/21/21 3:36 PM) Mode of Delivery (Oxygen) Room air (10/22/21 7:40 AM) Room air (10/22/21 4:43 AM) Nasal cannula (10/22/21 12:34 AM) Blood pressure sites Arm, left (10/22/21 7:40 AM) Arm, left (10/22/21 4:43 AM) Arm, left (10/22/21 12:34 AM) Temperature Route Oral (10/22/21 7:40 AM) Oral (10/22/21 5:38 AM) Oral (10/22/21 4:43 AM) Dry Weight 78.8 kg (10/21/21 3:10 AM) 83.5 kg (10/21/21 2:06 AM) 83.5 kg (10/20/21 12:38 PM) Social History Social History Type Response Smoking Status Current every day carlos pearl; Other: chewing tobacco; entered on: 11/28/16 Sex
--- OUTSIDE RECORDS SUMMARY | 2024-07-23 16:24 | XMS_ITS | Continuity of Care Document ---
Author Organization [facility] Address [address] [place] [address]- Care Team Providers Care Mold Setter Name Role Phone Layla LANDRUM, Bety Brewster Primary Care Physician [place] [facility] [place]23 - 06/22/[address] [address]- Discharge Disposition: A-D/C Home Attending Physician: Misael Titus MD Admitting Physician: Misael Titus MD Referring Physician: Not on Staff, Referring [...] Recorded pneumococcal 23-valent vaccine 11/29/16 Given Medications albuterol CFC free 90 mcg/inh inhalation aerosol 180 mcg, 2, puffs, By Mouth, Every 4 hours, PRN, # 6.7 Gm, Refills 0, Tot. Refills 0, Maintenance, 10/11/22 13:17:00 EST, Inhaler, Route to Pharmacy Electronically, [id number], [facility], 175, cm, 10/11/22 8:53:00 ES... Start Date: 10/11/22 Status: Ordered apixaban 5 mg oral tablet 1 tablet = 5 mg, By Mouth, 2 times a day, # 120 tablet, 0 Refills, Maintenance, 08/24/22 20:36:00 EDT, Tablet, [facility], Partial fill upon patient [...] 08/24/22 20:37:00 EDT, Route to Pharmacy Electronically, [facility], Partial fill uponpatient request [...] 02/11/20 14:17:00 EDT, Route to Pharmacy Electronically, [facility] #[id number], 176, cm, 02/11/20 14:13:00 EDT, Height, 82, kg, 02/11/20 14:13:00... Start Date: 02/11/20 Status: Ordered Turmeric 1 capsule, By Mouth, Daily, Maintenance, 02/02/22 15:31:00 EDT, Partial fill upon patient request if the prescription is for a schedule II opioid drug. Start Date: 02/02/22 Status: Ordered Vital Signs Most recent to oldest [Reference Range]: 1 2 Height 176 cm (06/22/23 12:17 AM) Weight 82 kg (06/22/23 12:17 AM) Oxygen Saturation [94-100 %] 99 % (06/22/23 6:32 AM) 98 % (06/22/23 12:17 AM) Pulse Rate [55-90 bpm] 80 bpm (06/22/23 6:32 AM) 76 bpm (06/22/23 12:17 AM) Blood Pressure [90-138/55-84 mm Hg] 125/ 74mm Hg (06/22/23 6:32 AM) 132/92mm Hg (06/22/23 12:17 AM) Respiratory Rate [16-30 br/min] 17 br/mi n (06/22/23 6:32 AM) 18 br/min (06/22/23 12:17 AM) Temperature [96.8-100.4 DegF] 98.1 DegF (06/22/23 12:17 AM) Mode of Delivery (Oxygen) Room air (06/22/23 6:32 AM) Room air (06/22/23 12:17 AM) Blood pressure sites Arm, left (06/22/23 6:32 AM) Arm, right (06/22/23 12:17 AM) Temperature Route Temporal (06/22/23 12:17 AM) Dry Weight 82 kg (06/22/23 12:17 AM) Weight Obtained Via Patient/family state d (06/22/23 12:17 AM) Social History Social History Type Response Smoking Status Current every day sm oker; Other: chewing tobacco; entered on: 11/28/16 Sex Note * Tacho CANO, Misael Mahan: PERFORM Event Display: Patient Education Leaflets Authored Date: [id number] Alcohol Intoxication ?? [id number] Alcohol Intoxication Alcohol intoxication is very serious. It occurs when you drink alcohol faster than your liver can break it down. Severe intoxication is a medical emergency. It's also called alcohol overdose or alcohol poisoning. It can lead to . Here are some tipton facts: ??? It can take 10 minutes or more??to start??to??feel the effects of a drink. So it's easy to drink more than you planned. Binge drinking can lead to an alcohol overdose. Binge drinking is having: o5 or more drinks over a short time for men o 4 or more drinks over a short time for women ??? One drink may be more than 1 serving of alcohol. In some cases, a drink can be 2 to 4 servings. This depends on the type of drink. ??? It takes about 1 hour for your body to break down 1 serving of alcohol. If you have more than 1 drink, it can take a few hours or more. ??? People with alcohol abuse disorders are more likely to get alcohol poisoning. But it can happen to anyone who drinks too much alcohol. Even a first-time drinker is at risk. ??? Many things affect how drinks will affect you. These include: o If you've eaten o How fast you drink o Your weight o How much you normally drink (or not)o Medicines you are taking o If you have a chronic disease o If you are male or female o How old you are Symptoms of alcohol intoxication Mild intoxication ??? Feel more relaxed, less tense ??? Slightly slurred speech ??? Sleepiness ??? Poor motor skills Moderate intoxication ??? Changing behavior, aggression, depression ??? Poor judgment ??? Confusion ??? Trouble focusing ??? Poor balance and coordination ??? Worsening slurred speech Severe intoxication ??? Vomiting ??? Seizures ??? Fainting or passing out (unconscious) ??? Cold, clammy skin ??? Slow or irregular breathing ??? Low body temperature (hypothermia) ??? Coma ?? Health effects Alcohol causes health problems.??This can happen after only drinking a little. There is no set number of drinks or amount of alcohol that's too much.??How much you drink at one time affects your health. And so does drinking often. Alcohol affects your whole body in these ways: ??? Brain.??Alcohol can harm parts of the brain that affect your balance, memory, thinking, and feelings. It can cause memory loss, blackouts, depression, agitation, sleep cycle changes, and seizures. These changes may or may not go away. ??? Heart and vascular system.??Alcohol can damage heart muscle. This can cause the heart muscle to weaken and stretch (cardiomyopathy). This can lead to: o Trouble breathing o Irregular heartbeat o Atrial fibrillation o Leg swelling o Heart failure Alcohol also makes the blood vessels stiffen. This causes high blood pressure. All of these problems raise your risk for heart attacks or strokes. ??? Liver.??Alcohol causes fat to build up in the liver. This affects how the liver works. And it raises the risk for hepatitis. This condition leads to belly pain, appetite loss, yellow skin and eyes (jaundice), and bleeding problems. It also leads to harmful changes in the liver. These include??liver fibrosis and cirrhosis. This can affect your ability to fight off infections. These liver changes stop it from removing toxins in your blood. This can cause a brain disease called encephalopathy. ??? Pancreas.??Alcohol can cause inflammation of the pancreas (pancreatitis). It can lead to belly pain, fever, and diabetes. ??? Immune system.??Alcohol weakens your immune system. This makes it harder to fight off infections and colds. You'll also have a higherrisk of some infections. ??? Cancer risk.??Alcohol raises your risk of some types of cancer. They include cancer of the: o Mouth o Esophagus o Pharynx o Larynx o Liver o Breast ? Sexual function.??Alcohol abuse can also lead to sexual problems. There is no safe level of alcohol use for people who are or thinking of getting . Alcohol use in may cause lifelong harm to the baby. So alcohol should be avoided. It can also cause a group of defects called alcohol spectrum disorder. These defects can include physical problems. And also behavior and learning problems. ?? Home care for alcohol intoxication Follow these tips to care for yourself at home: ??? Don't drink any more alcohol. ??? Don't drive??until all effects of the alcohol have worn off. ??? Don't use machinery that can cause injuries. ??? Get lots of rest over the next few days. ??? Drink plenty of water and other drinks that don't have alcohol. ??? Try to eat regular meals. If you have been drinking a lot every day, you may have alcohol withdrawal. Symptoms often last 3 to 4 days. They may include: ??? Nervousness ??? Shakiness ??? Nausea ??? Sweating ??? Sleeplessness They may also include severe, life-threatening symptoms. These are known as delirium tremens (DTs).DTs typically begin between 48 and 96 hours after the last drink and last 1 to 5 days. They include: ??? Seizures ??? Confusion ??? Seeing or hearing things that are not there (hallucinations) Alcohol withdrawal can cause . Call your healthcare provider before you stop drinking. This isespecially important if you've had DTs during past alcohol withdrawals. They may be able to help you with medicine. They can also refer you to an inpatient detox program. Or stay with family or friends who know when to call for medical help and can support you. If you have severe symptoms, call your provider or call 911 for help (see below). ?? Follow-up care These groups can help you and your loved one: ??? Alcoholics Anonymous (A.A.). Gives support through a self-help fellowship. ?? Find A.A. meetings near you at www.aa.org. ??? Al-Anon. ?? Gives support to families at www.al-anon.org . Or call 994-536-6532. ??? SMART Recovery ( Self- Management and Recovery Training). A nationwide abstinence-oriented support group for people with addictive issues. This free program is focused on motivation to change, urge control, and living a balanced life. For more information and meetings near you, go to www.Humansized.org/ ??? Substance Abuse and Mental Health Services Administration ([facility]) Treatment Rehab Technician. Free information on treatment resources in your area at https://findtreatment.gov/. Or call 425-748-3375. Call 911 Call 911 if any of these occur: ??? Trouble breathing or slow irregular breathing ??? Chest pain ??? Sudden weakness on 1 side of your body or sudden trouble speaking ??? Heavy bleeding or vomiting blood ??? Very sleepy or having trouble waking up ??? Fainting ??? Fast heart rate ??? Seizure ?? When to get medical advice Call your healthcare provider right away if any of these occur: ??? Severe shakiness? Fever of100.4??F (38??C) or higher, or as advised by your provider ??? Confusion or hallucinations ??? Painin your upper belly that gets worse ??? Repeated vomiting ?? Last Reviewed Date: 2022 ?? 1681-5618 [employer]. All rights reserved. This information is not intended as a substitute for professional medical care. Always follow your healthcare professional's instructions. ?? Patient Care team information Care Team Personnel Name: Cherry Mora Position: [facility] Outreach Member Role: Lifetime Consulting Physician Name: Bety Rich NP Position: [facility] Outreach Member Role: PCP Address: Address: [address] [place] [address] Name: Shaista Thurston RN Position: S RN Member Role: Primary Care Nurse Name: Facundo Sosa RN Position: S RN Member Role: Primary Care Nurse Name: Mary White RN Position: S RN Member Role: Primary Care Nurse Name: Dominique Velázquez RN Position: S RN Member Role: Primary Care Nurse Name: Coby Rodriguez RN Position: [facility] RN Member Role: Primary Care Nurse Name: Eloina Campa RN Position: [facility] RN Member Role: Primary Care Nurse Name: Fabián Corbett RN Position: [facility] ED RN W/OE and Tasks Member Role: Patient Care Provider Name: Misael Titus MD Position: [facility] ED Medicine MD Member Role: Admitting Physician Address: Address: [address] [place] [address]- [place] Care Team Related Persons Name: TRAVIS HUGGINS Address: home [address] [place] [address] Name: RONEN VINCENT Address: home [address] [place] [address]
--- OUTSIDE RECORDS SUMMARY | 2024-07-23 16:25 | XMS_ITS | Continuity of Care Document ---
Author Organization [facility] Address [address] [place] [address]- Care Team Providers Care Flexographic Press Helper Name Role Phone Bety Rich MD Primary Care Physician [phone] Encounter [facility] [place] Date(s): 07/23/21 - 07/23/[address] [address]- Discharge Disposition: A-D/C Walkout Attending Physician: Michael Vazquez MD Admitting Physician: Michael Vazquez MD Referring Physician: Not on Staff, Referring [...] Maintenance, 09/10/17 14:11:52, Route to Pharmacy Electronically, [id number], [facility] Start Date: 09/10/17 Stop Date: 10/10/17 Status: [...] Maintenance, 02/21/17 11:03:20, Route to Pharmacy Electronically, [id number], [facility] [address] Start Date: 02/21/17 Status: Ordered meloxicam 5 mg oral capsule 1 capsule = 5 mg, By Mouth, Daily, # 30 capsule, 0 Refills, Maintenance, 02/11/20 14:17:00 EDT, Capsule, [facility] #[id number], 176, cm, 02/11/20 14:13:00 EDT, Height, 82, kg, 02/11/20 14:13:00EDT, Dry Weight Start Date: 02/11/20 Status: Ordered Thiamine Daily, Refills 0, Maintenance, 05/25/20 15:50:00 EDT Start Date: 05/25/20 Status: Ordered traZODone 50 mg oral tablet 50 mg, 1, tablet, By Mouth, Daily at bedtime, # 3 capsule, Refills 0, Tot. Refills 0, Maintenance, 02/11/20 14:17:00 EDT, Route to Pharmacy Electronically, [facility] #[id number], 176, cm, 02/11/20 14:13:00 EDT, Height, 82, kg, 02/11/20 14:13:00... Start Date: 02/11/20 Status: Ordered Vital Signs Most recent to oldest [Reference Range]: 1 Height 175 cm (07/23/21 9:18 AM) Weight 82 kg (07/23/21 9:18 AM) Oxygen Saturation [94-100 %] 93 % *L* (07/23/21 9:18 AM) Pulse Rate [55-90 bpm] 76 bpm (07/23/21 9:18 AM) Respiratory Rate [16-30 br/min] 16 br/mi n (07/23/21 9:18 AM) Temperature [96.8-100.4 DegF] 97.1 DegF (07/23/21 9:18 AM) Mode of Delivery (Oxygen) Room air (07/23/21 9:18 AM) Blood pressure sites Arm, left (07/23/21 9:18 AM) Temperature Route Oral (07/23/21 9:18 AM) Dry Weight 82 kg (07/23/21 9:18 AM) Social History Social History Type Response Smoking Status Current every day carlos pearl; Other: chewing tobacco; entered on: 11/28/16 Sex
--- OUTSIDE RECORDS SUMMARY | 2024-07-23 16:25 | XMS_ITS | Continuity of Care Document ---
Author Organization [facility] Address [address] [place] [address]- Care Team Providers Care Mold Filling Operator Name Role Phone Layla LANDRUM, Bety Pino Primary Care Physician Encounter [facility] [place] Date(s): 08/21/21 - 08/21/[address] [address]- Discharge Disposition: A-D/C Home Attending Physician: Saida Khan MD Admitting Physician: Saida Khan MD Referring Physician: Not on Staff, Referring [...] Maintenance, 09/10/17 14:11:52, Route to Pharmacy Electronically, [id number], [facility] [address] Start Date: 09/10/17 Stop Date: 10/10/17 Status: [...] Maintenance, 02/21/17 11:03:20, Route to Pharmacy Electronically, [id number], [facility] [address] Start Date: 02/21/17 Status: Ordered meloxicam 5 mg oral capsule 1 capsule = 5 mg, By Mouth, Daily, # 30 capsule, 0 Refills, Maintenance, 02/11/20 14:17:00 EDT, Capsule, [facility]68077, 176, cm, 02/11/20 14:13:00 EDT, Height, 82, kg, 02/11/20 14:13:00EDT, Dry Weight Start Date: 02/11/20 Status: Ordered Thiamine Daily, Refills 0, Maintenance, 05/25/20 15:50:00 EDT Start Date: 05/25/20 Status: Ordered traZODone 50 mg oral tablet 50 mg, 1, tablet, By Mouth, Daily at bedtime, # 3 capsule, Refills 0, Tot. Refills 0, Maintenance, 02/11/20 14:17:00 EDT, Route to Pharmacy Electronically, [facility][id number], 176, cm, 02/11/20 14:13:00 EDT, Height, 82, kg, 02/11/20 14:13:00... Start Date: 02/11/20 Status: Ordered Vital Signs Most recent to oldest [Reference Range]: 1 2 3 Height 173 cm (08/21/21 11:11 AM) 173 cm (08/21/21 11:00 AM) Weight 95 kg (08/21/21 11:11 AM) 95 kg (08/21/21 11:00 AM) Oxygen Saturation [94-100 %] 95 % (08/21/21 11:06 PM) 96 % (08/21/21 11:00 AM) Pulse Rate [55-90 bpm] 75 bpm (08/21/21 11:06 PM) 92 bpm *H* (08/21/21 11:00 AM) Blood Pressure [90-138/55-84 mm Hg] 134/86mm Hg (08/21/21 11:06 PM) Respiratory Rate [16-30 br/min] 16 br/min (08/21/21 11:06 PM) 14 br/min *L* (08/21/21 5:33 PM) 18 br/min (08/21/21 11:11 AM) Temperature [96.8-100.4 DegF] 97.8 DegF (08/21/21 11:06 PM) Mode of Delivery (Oxygen) Room air (08/21/21 11:06 PM) Room air (08/21/21 11:00 AM) Temperature Route Oral (08/21/21 11:06 PM) Dry Weight 95 kg (08/21/21 11:00 AM) Social History Social History Type Response Smoking Status Current every day sm ryanne; Other: chewing tobacco; entered on: 11/28/16 Sex
--- OUTSIDE RECORDS SUMMARY | 2024-07-23 16:25 | XMS_ITS | Continuity of Care Document ---
Author Organization [facility] Address [address] [place] [address]- Care Team Providers Care Barrel Endshaker Adjuster Name Role Phone Gen Jeronimo Primary Care Physician [phone] Encounter [facility] [place] Date(s): 01/06/20 - 01/07/[address] [address]- [place] [phone] Encounter Diagnosis Acute alcoholic intoxication(Final) - 01/06/20 Discharge Disposition: A-D/C Home Attending Physician: Michael Vazquez MD Admitting Physician: [...] Maintenance, 09/10/17 14:11:52, Route to Pharmacy Electronically, [id number], [facility] [address] Start Date: 09/10/17 Stop Date: 10/10/17 Status: [...] Maintenance, 02/21/17 11:03:20, Route to Pharmacy Electronically, [id number], [facility] [address] Start Date: 02/21/17 Status: Ordered Nicorette Fruit [...] Range]: 1 2 3 Height 175 cm (01/07/20 2:12 AM) 175 cm (01/06/20 11:38 PM) 175 cm (01/06/20 10:41 PM) Weight 85 kg (01/07/20 2:12 AM) 85 kg (01/06/20 11:38 PM) 85 kg (01/06/20 10:41 PM) Oxygen Saturation [94-100 %] 98 % (01/07/20 2:12 AM) 94 % (01/06/20 10:37 PM) Pulse Rate [55-90 bpm] 75 bpm (01/07/20 2:12 AM) 95 bpm *H* (01/06/20 10:37 PM) Body Mass Index [18.5-24.99] 27.76 *H* (01/07/20 2:12 AM) 27.76 *H* (01/06/20 11:38 PM) Blood Pressure [90-138/55-84 mm Hg] 111/70mm Hg (01/07/20 2:12 AM) 137/87mm Hg (01/06/20 10:37 PM) Respiratory Rate [16-30 br/min] 16 br/min (01/07/20 2:12 AM) 20 br/min (01/06/20 11:38 PM) 18 br/min (01/06/20 10:37 PM) Temperature [96.8-100.4 DegF] 97.4 DegF (01/06/20 10:37 PM) Mode of Delivery (Oxygen) Room air (01/07/20 2:12 AM) Room air (01/06/20 10:37 PM) Blood pressure sites Arm, right (01/07/20 2:12 AM) Arm, left (01/06/20 10:37 PM) Temperature Route Oral (01/06/20 10:37 PM) Dry Weight 85 kg (01/07/20 2:12 AM) 85 kg (01/06/20 11:38 PM) 85 kg (01/06/20 10:41 PM) Social History Social History Type Response Smoking Status Current every day carlos pearl; Other: chewing tobacco; entered on: 11/28/16 Sex
--- OUTSIDE RECORDS SUMMARY | 2024-07-23 16:25 | XMS_ITS | Continuity of Care Document ---
Author Organization [facility] Address [address] [place] [address]- Care Team Providers Care Inspector Wreath Name Role Phone Gen Jeronimo Primary Care Physician [phone] Encounter [facility] Date(s): 02/26/20 - 02/26/[address] [address]- [place] [phone] Encounter Diagnosis Alcohol abuse(Final) - 02/26/20 Discharge Disposition: A-D/C Home Attending Physician: Cornelio Grajeda DO Admitting Physician: Cornelio Grajeda DO Referring Physician: Not on Staff, Referring MD [...] Maintenance, 09/10/17 14:11:52, Route to Pharmacy Electronically, [id number], [facility] [address] Start Date: 09/10/17 Stop Date: 10/10/17 Status: [...] Maintenance, 02/21/17 11:03:20, Route to Pharmacy Electronically, [id number], [facility] Start Date: 02/21/17 Status: Ordered meloxicam 5 mg oral capsule 1 capsule = 5 mg, By Mouth, Daily, # 30 capsule, 0 Refills, Maintenance, 02/11/20 14:17:00 EDT, Capsule, [facility] #[id number], 176, cm, 02/11/20 14:13:00 EDT, Height, 82, kg, 02/11/20 14:13:00EDT, Dry Weight Start Date: 02/11/20 Status: Ordered traZODone 50 mg oral tablet 50 mg, 1, tablet, By Mouth, Daily at bedtime, # 3 capsule, Refills 0, Tot. Refills 0, Maintenance, 02/11/20 14:17:00 EDT, Route to Pharmacy Electronically, [facility] #[id number], 176, cm, 02/11/20 14:13:00 EDT, Height, 82, kg, 02/11/20 14:13:00... Start Date: 02/11/20 Status: Ordered Vital Signs Most recent to oldest [Reference Range]: 1 2 3 Height 175 cm (02/26/20 9:46 PM) 175 cm (02/26/20 7:41 PM) 175 cm (02/26/20 4:30 PM) Weight 82 kg (02/26/20 9:46 PM) 82 kg (02/26/20 7:41 PM) 82 kg (02/26/20 4:30 PM) Oxygen Saturation [94-100 %] 92 % *L* (02/26/20 9:46 PM) 94 % (02/26/20 7:41 PM) 96 % (02/26/20 4:30 PM) Pulse Rate [55-90 bpm] 89 bpm (02/26/20 9:46 PM) 84 bpm (02/26/20 7:41 PM) 80 bpm (02/26/20 4:30 PM) Body Mass Index [18.5-24.99] 26.78 *H* (02/26/20 9:46 PM) 26.78 *H* (02/26/20 7:41 PM) Blood Pressure [90-138/55-84 mm Hg] 126/75mm Hg (02/26/20 9:46 PM) 110/73mm Hg (02/26/20 7:41 PM) 126/79mm Hg (02/26/20 4:30 PM) Respiratory Rate [16-30 br/min] 16 br/min (02/26/20 9:46 PM) 20 br/min (02/26/20 5:00 PM) 18 br/min (02/26/20 4:30 PM) Temperature [96.8-100.4 DegF] 98.8 DegF (02/26/20 9:46 PM) 97.7 DegF (02/26/20 7:41 PM) 97.8 DegF (02/26/20 4:30 PM) Mode of Delivery (Oxygen) Room air (02/26/20 9:46 PM) Room air (02/26/20 7:41 PM) Room air (02/26/20 4:30 PM) Blood pressure sites Arm, right (02/26/20 9:46 PM) Arm, right (02/26/20 7:41 PM) Arm, right (02/26/20 4:30 PM) Temperature Route Oral (02/26/20 9:46 PM) Oral (02/26/20 7:41 PM) Oral (02/26/20 4:30 PM) Dry Weight 82 kg (02/26/20 9:46 PM) 82 kg (02/26/20 7:41 PM) 82 kg (02/26/20 4:30 PM) Weight Obtained Via Patient/family state d (02/26/20 4:30 PM) Social History Social History Type Response Smoking Status Current every day sm oker; Other: chewing tobacco; entered on: 11/28/16 Sex
--- OUTSIDE RECORDS SUMMARY | 2024-07-23 16:25 | XMS_ITS | Continuity of Care Document ---
Author Organization [facility] Address [address] [place] [address]- Care Team Providers Care Content Manager Name Role Phone Layla LANDRUM, Bety Pino Primary Care Physician Encounter [facility] Date(s): 10/22/21 - 10/23/[address] [address]- Encounter Diagnosis Alcohol intoxication(Final) - 10/23/21 Discharge Disposition: A-D/C Home Attending Physician: Julio Contreras DO Admitting Physician: Julio Contreras DO Referring Physician: Not on Staff, Referring [...] Maintenance,09/09/21 9:49:00 EDT, Route to Pharmacy Electronically, [facility][id number], Partial fill upon patient request if the prescription is for a ken... Start Date: 09/09/21 Status: Ordered meloxicam 5 mg oral capsule 1 capsule = 5 mg, By Mouth, Daily, # 30 capsule, 0 Refills, Maintenance, 02/11/20 14:17:00 EDT, Capsule, [facility][id number], 176, cm, 02/11/20 14:13:00 EDT, Height, 82, [...] 0 Refills, Maintenance, 09/09/21 9:51:00 EDT, Gum, [facility] #[id number], Partial fill upon patient request if the prescription is for a schedule II opioid drug., 170, cm, 09/09... Start Date: 09/09/21 Status: Ordered traZODone 50 mg oral tablet 50 mg, 1, tablet, By Mouth, Daily at bedtime, # 3 capsule, Refills 0, Tot. Refills 0, Maintenance, 02/11/20 14:17:00 EDT, Route to Pharmacy Electronically, [facility] #[id number], 176, cm, 02/11/20 14:13:00 EDT, Height, 82, kg, 02/11/20 14:13:00... Start Date: 02/11/20 Status: Ordered Results Radiology Reports * Exam Date Time Procedure Performing Provider Status 10/23/21 1:12 AM XR Hip w/Pelvis 2-3 View Left Jeffry Kumari i; Auth (Verified) Notes: (XR Hip w/Pelvis 2-3 View Left) Reason For Exam: Pain RESULT: XR Hip w/Pelvis 2-3 View Left XR Hip w/Pelvis 2-3 View Left Hx of Present Illness: pt BIBA with complains of alcohol intoxication, EMS stated pt was found in the hodge in a sitting position. pt stated he has been drinking the whole evening but denies falls, abdominal pain, neck pain, chest pain or SOB; Reason: Pain; Clinical Question(s): Fracture COMPARISON: Left hip radiograph performed on 06/01/2020. FINDINGS: Again demonstrated are small radiopaque linear structure is adjacent to the left trochanter. Again demonstrated are bilateral total hip arthroplasty hardware in place. There is no evidence of acute fracture or dislocation. Soft tissues are unremarkable. IMPRESSION: Again seen are post surgical changes without evidence of acute pathology. WSN: [id number] Ordering Physician: Julio Contreras Dictated By: Julissa Gonzalez MD Dictated Date/Time: 10/23/21 6:47 am Reviewed By: Julissa Gonzalez MD Signed By: Julissa Gonzalez MD Signed Date/Time: 10/23/21 6:47 am Transcribed By: GARLAND Transcribed Date/Time: 10/23/21 6:44 am Vital Signs Most recent to oldest [Reference Range]: 1 2 3 Height 175 cm (10/23/21 12:07 AM) Weight 85 kg (10/23/21 12:07 AM) Oxygen Saturation [94-100 %] 98 % (10/23/21 6:00 AM) 97 % (10/23/21 4:00 AM) 98 % (10/23/21 12:07 AM) Pulse Rate [55-90 bpm] 72 bpm (10/23/21 6:00 AM) 80 bpm (10/23/21 4:00 AM) 73 bpm (10/23/21 12:07 AM) Blood Pressure [90-138/55-84 mm Hg] 131/75mm Hg (10/23/21 6:00 AM) 125/82mm Hg (10/23/21 4:00 AM) 149/97mm Hg *H* (10/23/21 12:07 AM) Respiratory Rate [16-30 br/min] 20 br/min (10/23/21 6:00 AM) 20 br/min (10/23/21 4:00 AM) 20 br/min (10/23/21 12:07 AM) Temperature [96.8-100.4 DegF] 97.8 DegF (10/23/21 6:00 AM) 97.8 DegF (10/23/21 4:00 AM) 97.1 DegF (10/23/21 12:07 AM) Mode of Delivery (Oxygen) Room air (10/23/21 6:00 AM) Room air (10/23/21 4:00 AM) Room air (10/23/21 12:07 AM) Blood pressure sites Arm, right (10/23/21 6:00 AM) Arm, left (10/23/21 4:00 AM) Arm, left (10/23/21 12:07 AM) Temperature Route Oral (10/23/21 6:00 AM) Oral (10/23/21 12:07 AM) Dry Weight 85 kg (10/23/21 12:07 AM) Dry Weight Obtained Via Patient/family s tated (10/23/21 12:07 AM) Social History Social History Type Response Smoking Status Current every day carlos pearl; Other: chewing tobacco; entered on: 11/28/16 Sex
--- OUTSIDE RECORDS SUMMARY | 2024-07-23 16:25 | XMS_ITS | Continuity of Care Document ---
Author Organization [facility] Address [address] [place] [address]- Care Team Providers Care Event Specialist Product Demonstrator Name Role Phone Layla LANDRUM, Bety Pino Primary Care Physician [phone] [facility] Date(s): 08/20/21 - 08/21/[address] [address]- Encounter Diagnosis Abrasion of back(Final) - 08/20/21 Discharge Disposition: A-D/C Home Attending Physician: Misael [...] Maintenance, 09/10/17 14:11:52, Route to Pharmacy Electronically, [id number], [facility] [id number] Start Date: 09/10/17 Stop Date: 10/10/17 Status: [...] Maintenance, 02/21/17 11:03:20, Route to Pharmacy Electronically, [id number], [facility] Start Date: 02/21/17 Status: Ordered meloxicam 5 mg oral capsule 1 capsule = 5 mg, By Mouth, Daily, # 30 capsule, 0 Refills, Maintenance, 02/11/20 14:17:00 EDT, Capsule, [facility] #[id number], 176, cm, 02/11/20 14:13:00 EDT, Height, 82, kg, 02/11/20 14:13:00EDT, Dry Weight Start Date: 02/11/20 Status: Ordered Thiamine Daily, Refills 0, Maintenance, 05/25/20 15:50:00 EDT Start Date: 05/25/20 Status: Ordered traZODone 50 mg oral tablet 50 mg, 1, tablet, By Mouth, Daily at bedtime, # 3 capsule, Refills 0, Tot. Refills 0, Maintenance, 02/11/20 14:17:00 EDT, Route to Pharmacy Electronically, [facility] #[id number], 176, cm, 02/11/20 14:13:00 EDT, Height, 82, kg, 02/11/20 14:13:00... Start Date: 02/11/20 Status: Ordered Vital Signs Most recent to oldest [Reference Range]: 1 2 Height 179 cm (08/20/21 6:29 PM) 179 cm (08/20/21 6:22 PM) Weight 95 kg (08/20/21 6:29 PM) 95 kg (08/20/21 6:22 PM) Oxygen Saturation [94-100 %] 96 % (08/20/21 6:29 PM) 96 % (08/20/21 6:22 PM) Pulse Rate [55-90 bpm] 88 bpm (08/20/21 6:29 PM) 88 bpm (08/20/21 6:22 PM) Body Mass Index [18.5-24.99] 29.65 *H* (08/20/21: PM) Blood Pressure [90-138/55-84 mm Hg] 110/ 72mm Hg (08/20/21 6:29 PM) 110/72mm Hg (08/20/21 6:22 PM) Respiratory Rate [16-30 br/min] 18 br/mi n (08/20/21: PM) 18 br/min (08/20/21: PM) Temperature [96.8-100.4 DegF] 97.5 DegF (08/20/21: PM) 97.5 DegF (08/20/21: PM) Mode of Delivery (Oxygen) Room air (08/20/21:29 PM) Room air (08/20/21 6:22 PM) Blood pressure sites Arm, left (08/20/21:29 PM) Arm, left (08/20/21: PM) Temperature Route Oral (08/20/21:29 PM) Oral (08/20/21 6:22 PM) Dry Weight 95 kg (08/20/21:29 PM) 95 kg (08/20/21: PM) Weight Obtained Via Patient/family state d (08/20/21 6:29 PM) Patient/family stated (08/20/21 6:22 PM) Dry Weight Obtained Via Patient/family s tated (08/20/21:29 PM) Patient/family stated (08/20/21: PM) Social History Social History Type Response Smoking Status Current every day sm oker; Other: chewing tobacco; entered on: 11/28/16 Sex
--- OUTSIDE RECORDS SUMMARY | 2024-07-23 16:25 | XMS_ITS | Continuity of Care Document ---
Author Organization [facility] Address [address] [place] [address]- Care Team Providers Care Xerox Machine Mechanic Name Role Phone Layla LANDRUM, Bety Brewster Primary Care Physician Encounter [facility] Date(s): 06/04/24 - 07/04/24 [facility] [address] [place] [id number] Attending Physician: Isac Fung Admitting Physician: AdmIsac [...] 13:17:00 EST, Inhaler, Route to Pharmacy Electronically, [id number], [id number], 175, cm, 10/11/22 8:53:00 ES... Start Date: 10/11/22 Status: Ordered apixaban 5 mg oral tablet 1 tablet = 5 mg, By Mouth, 2 times a day, # 120 tablet, 0 Refills, Maintenance, 08/24/22 20:36:00 EDT, Tablet, [facility], Partial fill upon patient request if the prescription is for aschedule II opioid drug., 08/30/22, 175, cm, ... Start Date: 08/24/22 Stop Date: 10/23/22 Status: Ordered Aspirin Aspirin, 500 mg, By Mouth, 2 times a day, 0 Refills, Maintenance, 04/16/24 13:28:00 EDT Start Date: 04/16/24 Status: Ordered atorvastatin 40 mg oral tablet [...] 08/24/22 20:37:00 EDT, Route to Pharmacy Electronically, [facility], Partial fill uponpatient request [...] 02/11/20 14:17:00 EDT, Route to Pharmacy Electronically, [facility] #[id number], 176, cm, 02/11/20 14:13:00 EDT, Height, 82, kg, 02/11/20 14:13:00... Start Date: 02/11/20 Status: Ordered Turmeric 1 capsule, By Mouth, Daily, Maintenance, 02/02/22 15:31:00 EDT, Partial fill upon patient request if the prescription is for a schedule II opioid drug. Start Date: 02/02/22 Status: Ordered Problem List Condition Confirmation Course Effective Dates Status H ealth Status Informant Alcohol use Confirmed Active Tobacco use Confirmed Active Hypercholesterolemia Confirmed Active Pulmonary nodules Confirmed Active Social History Social History Type Response Smoking Status Never (less than 100 in lifetime);Former smokeless tobacco user, quit more than 30 days ago; Type: chewing tobacco; Exposure to Secondhand Smoke: Yes; Tobacco use times per day: Quit chewing tobacco in 2021; Had quit off an on prior to this;; entered on: 04/16/24 Sex Patient Care team information Care Team Personnel Name: Cherry Mora Position: [facility] Outreach Member Role: Lifetime Consulting Physician Name: Bety Rich NP Position: S Outreach Member Role: PCP Address: Address: [address] [place] [address] Name: Shaista Thurston RN Position: S RN Member Role: Primary Care Nurse Name: Facundo Sosa RN Position: S RN Member Role: Primary Care Nurse Name: Mary White RN Position: [facility] SN RN Member Role: Primary Care Nurse Name: Dominique Velázquez RN Position: S RN Member Role: Primary Care Nurse Name: Coby Rodriguez RN Position: S RN Member Role: Primary Care Nurse Name: Eloina Campa RN Position: S RN Member Role: Primary Care Nurse Care Team Related Persons Name: TRAVIS HUGGINS Address: home [address] [place] [address] Name: RONEN VINCENT Address: home [address] [place] [address]
--- OUTSIDE RECORDS SUMMARY | 2024-07-23 16:25 | XMS_ITS | Continuity of Care Document ---
Author Organization [facility] Address [address] [place] [address]- Care Team Providers Care Shale Planer Operator Helper Name Role Phone Layla LANDRUM, Bety Pino Primary Care Physician Encounter [facility] Date(s): 02/02/22 - 02/06/[address] [address] Discharge Disposition: A-D/C Home Attending Physician: Soham Mcfarland MD Admitting Physician: Soham Mcfarladn MD Referring Physician: Not on Staff, Referring MD Allergies, Adverse Reactions, Alerts Substance Reaction Severity Status Pollen Active Immunizations Given and Recorded Vaccine Date Status Refusal Reason pneumococcal 23-valent vaccine 11/29/16 Given Medications cholecalciferol 1000 intl units oral capsule 1 capsule = 25 mcg, By Mouth, Daily, Maintenance, 02/02/22 15:30:00 EDT, Capsule, Partial fill uponpatient request if the prescription is for a schedule II opioid drug. Start Date: 02/02/22 Status: Ordered Colace sodium 100 mg oral capsule 100 mg, 1, capsule, By Mouth, 2 times a day, # 60 capsule, Refills 0, Tot. Refills 0, Maintenance, 02/06/22 15:14:00 EDT, Route to Pharmacy Electronically, [facility], Partial fill uponpatient request if the prescription is for a schedu... Start Date: 02/06/22 Stop Date: 03/08/22 Status: Ordered escitalopram 10 mg oral tablet [...] opioid drug. Start Date: 02/02/22 Status: Ordered MiraLax oral powder for reconstitution = 17 Gm, By Mouth, Daily, for 14 days, dissolve in water before taking, # 238 Gm, 0 Refills, Acute 02/20/22 15:14:00 EDT, 02/06/22 15:14:00 EDT, REC Powder, [facility], Partial fill upon patient request if the prescription is for a sched... Start Date: 02/06/22 Stop Date: 02/20/22 Status: Ordered Multivitamin 1 tablet, By Mouth, [...] opioid drug. Start Date: 08/31/21 Status: Ordered nicotine 21 mg/24 hr transdermal film, extended release 1 patch, Topically, Daily, Maintenance, 02/02/22 15:24:00 EDT, Patch, Partial fill upon patient request if the prescription is for a schedule II opioid drug. Start Date: 02/02/22 Status: Ordered senna - oral tablet 2 tablet, By Mouth, Daily at bedtime, PRN for constipation, # 30 tablet, 0 Refills, Acute 03/12/22 12:00:00 EDT, 02/06/22 15:15:00 EDT, Tablet, [facility], Partial fill upon patient request if the prescription is for a schedule II opioid... Start Date: 02/06/22 Stop Date: 03/12/22 Status: Ordered traZODone 50 mg oral tablet 50 mg, 1, tablet, By Mouth, Daily at bedtime, # 3 capsule, Refills 0, Tot. Refills 0, Maintenance, 02/11/20 14:17:00 EDT, Route to Pharmacy Electronically, [facility] #[id number], 176, cm, 02/11/20 14:13:00 EDT, Height, 82, kg, 02/11/20 14:13:00... Start Date: 02/11/20 Status: Ordered Turmeric 1 capsule, By Mouth, Daily, Maintenance, 02/02/22 15:31:00 EDT, Partial fill upon patient request if the prescription is for a schedule II opioid drug. Start Date: 02/02/22 Status: Ordered Results Radiology Reports * Exam Date Time Procedure Performing Provider Status 02/03/22 8:12 AM Abdomen AP Yisel Richards; Auth (Verified) Notes: (Abdomen AP) Reason For Exam: follow up plain film;Nausea/Vomiting RESULT: XR Abdomen AP XR Abdomen AP INDICATION/CLINICAL QUESTION: Nausea Vomiting; follow up plain film; Clinical Question(s): Obstruction; Special Instructions: 16 hr post contrast admission. COMPARISON: 01/30/2022. FINDINGS: Normal bowel gas pattern. No evidence of obstruction. No evidence of pneumoperitoneum. No organomegaly, masses or calcifications. Bilateral total hip arthroplasties are again noted. IMPRESSION: Nonspecific findings. WSN: [id number] Ordering Physician: Renard Quinteros Dictated By: Tito Mitchell MD Dictated Date/Time: 02/03/22 10:59 a Reviewed By: Tito Mitchell MD Signed By: Tito Mitchell MD Signed Date/Time: 02/03/22 10:59 am Transcribed By: GARLAND Transcribed Date/Time: 02/03/22 10:58 am * Exam Date Time Procedure Performing Provider Status 02/02/22 8:49 PM XR Abdomen AP Small Bowel W/ contrast Mart Alexis; Auth (Verified) Notes: (XR Abdomen AP Small Bowel W/ contrast) Reason For Exam: Nausea/Vomiting;Nausea/Vomiting RESULT: XR Abdomen AP Small Bowel with contrast Single AP view of the abdomen demonstrates relative paucity of bowel gas. Comparing to the recent CT scan previous exam today, there were multiple distended small bowel loops with findings suggestiveof obstruction. I do not see definite dilatation of small bowel loops, though this may be related to the fact that they are opacified and comparison to the previous CT scan is limited. Some gas is still noted in the colon. The superior aspect of the abdomen not included on the exam, though visualized on chest x-ray previously same day without evidence of acute abnormality. Contrast material seen within the bladder. Bilateral hip arthroplasties without complication. IMPRESSION: Paucity of bowel gas in the abdomen may be related to facet small bowel loops are filled with fluid/contrast material. No contrast visualized within the colon. The appearance still raises concern forobstruction. WSN: [id number] Ordering Physician: Mitzi Carvajal Dictated By: Juilo Mishra MD Dictated Date/Time: 02/03/22 0:14 am Reviewed By: Julio Mishra MD Signed By: Julio Mishra MD Signed Date/Time: 02/03/22 0:14 am Transcribed By: GARLAND Transcribed Date/Time: 02/03/22 0:11 am * Exam Date Time Procedure Performing Provider Status 02/02/22 11:00 PM Abdomen AP Vijay Sapp; Auth ( Verified) Notes: (Abdomen AP) Reason For Exam: Nausea/Vomiting;Nausea/Vomiting RESULT: XR Abdomen AP XR Abdomen AP 1 view INDICATION/CLINICAL QUESTION: Reason: Nausea Vomiting; Clinical Question(s): Obstruction; Special Instructions: obtain 6 hours after contrast. COMPARISON: None FINDINGS: Normal bowel gas pattern. No evidence of obstruction. No evidence of pneumoperitoneum. Enteric tube appears in good position with the tip and sidehole in the left hemidiaphragm. Bilateral hip arthroplasties without evidence of complication. IMPRESSION: No evidence of free air or specific findings of obstruction. Enteric tube appears in good position. WSN: [id number] Ordering Physician: Mitzi Carvajal Dictated By: Julio Mishra MD Dictated Date/Time: 02/02/22 11:09 p Reviewed By: Julio Mishra MD Signed By: Julio Mishra MD Signed Date/Time: 02/02/22 11:09 pm Transcribed By: GARLAND Transcribed Date/Time: 02/02/22 11:08 pm * Exam Date Time Procedure Performing Provider Status 02/02/22 1:56 PM Chest Portable Rosanna Peguero; Auth (Ve rified) Notes: (Chest Portable) Reason For Exam: NG tube placement;Tube Placement RESULT: Chest Portable Chest Portable Reason: Tube Placement; NG tube placement; Clinical Question(s): Tube Placement COMPARISON: 10/20/2021 FINDINGS: LINES AND TUBES: NG tube in good position. LUNGS AND PLEURA: Clear lungs. Normal pulmonary vascularity. No pleural effusion. No pneumothorax. HEART, MEDIASTINUM AND JACKI: Heart is normal in size. Normal upper mediastinal and hilar contour. BONES AND SOFT TISSUES: No acute abnormality. Additional findings: Dilated small bowel loops identified below the diaphragm. IMPRESSION: NG tube in good position. WSN: [id number] Ordering Physician: Bety Alston Dictated By: Braden Castro MD Dictated Date/Time: 02/02/22 2:23 pm Reviewed By: Braden Castro MD Signed By: Braden Castro MD Signed Date/Time: 02/02/22 2:23 pm Transcribed By: GARLAND Transcribed Date/Time: 02/02/22 2:21 pm Vital Signs Most recent to oldest [Reference Range]: 1 2 3 Height 170 cm (02/06/22 4:43 AM) 170 cm (02/05/22 7:32 PM) 170 cm (02/05/22 4:02 AM) Weight 85 kg (02/02/22 9:47 PM) Oxygen Saturation [94-100 %] 96 % (02/06/22 2:00 PM) 98 % (02/06/22 11:00 AM) 97 % (02/06/22 7:00 AM) Pulse Rate [55-90 bpm] 72 bpm (02/06/22 2:00 PM) 65 bpm (02/06/22 11:00 AM) 59 bpm (02/06/22 7:00 AM) Body Mass Index [18.5-24.99] 29.41 *H* (02/02/22 9:47 PM) Blood Pressure [90-138/55-84 mm Hg] 112/70mm Hg (02/06/22 2:00 PM) 118/78mm Hg (02/06/22 11:00 AM) 105/68mm Hg (02/06/22 7:00 AM) Respiratory Rate [16-30 br/min] 18 br/min (02/06/22 2:00 PM) 20 br/min (02/06/22 11:00 AM) 18 br/min (02/06/22 7:00 AM) Temperature [96.8-100.4 DegF] 98.6 DegF (02/06/22 2:00 PM) 98.5 DegF (02/06/22 11:00 AM) 98.0 DegF (02/06/22 7:00 AM) Mode of Delivery (Oxygen) Room air (02/06/22 2:00 PM) Room air (02/06/22 11:00 AM) Room air (02/06/22 7:00 AM) Blood pressure sites Arm, right (02/06/22 2:00 PM) Arm, right (02/06/22 11:00 AM) Arm, right (02/06/22 7:00 AM) Temperature Route Oral (02/06/22 2:00 PM) Oral (02/06/22 11:00 AM) Oral (02/06/22 7:00 AM) Dry Weight 85 kg (02/02/22 9:47 PM) Social History Social History Type Response Smoking Status Current every day sm oker; Other: chewing tobacco; entered on: 11/28/16 Sex
--- OUTSIDE RECORDS SUMMARY | 2024-07-23 16:25 | XMS_ITS | Continuity of Care Document ---
Author Organization [facility] Address [address] [place] [address]- Care Team Providers Care Sole Trimmer Name Role Phone Not on Staff, PCP Primary Care Physician Unavail able Encounter [facility] [place] Date(s): 05/25/20 - 05/25/[address] [address] [phone] Discharge Disposition: A-D/C Home Attending Physician: Saida [...] Maintenance, 09/10/17 14:11:52, Route to Pharmacy Electronically, [id number], [id number] Start Date: 09/10/17 Stop Date: 10/10/17 Status: [...] Maintenance, 02/21/17 11:03:20, Route to Pharmacy Electronically, [id number], [id number] Start Date: 02/21/17 Status: Ordered meloxicam 5 mg oral capsule 1 capsule = 5 mg, By Mouth, Daily, # 30 capsule, 0 Refills, Maintenance, 02/11/20 14:17:00 EDT, Capsule, [facility] #[id number], 176, cm, 02/11/20 14:13:00 EDT, Height, 82, kg, 02/11/20 14:13:00EDT, Dry Weight Start Date: 02/11/20 Status: Ordered Thiamine Daily, Refills 0, Maintenance, 05/25/20 15:50:00 EDT Start Date: 05/25/20 Status: Ordered traZODone 50 mg oral tablet 50 mg, 1, tablet, By Mouth, Daily at bedtime, # 3 capsule, Refills 0, Tot. Refills 0, Maintenance, 02/11/20 14:17:00 EDT, Route to Pharmacy Electronically, [facility] #[id number], 176, cm, 02/11/20 14:13:00 EDT, Height, 82, kg, 02/11/20 14:13:00... Start Date: 02/11/20 Status: Ordered Vital Signs Most recent to oldest [Reference Range]: 1 2 3 Height 175 cm (05/25/20 11:30 PM) 175 cm (05/25/20 11:39 AM) Weight 82 kg (05/25/20 11:30 PM) 82 kg (05/25/20 11:39 AM) Oxygen Saturation [94-100 %] 94 % (05/25/20 9:05 PM) 92 % *L* (05/25/20 3:41 PM) 95 % (05/25/20 3:03 PM) Pulse Rate [55-90 bpm] 88 bpm (05/25/20 9:05 PM) 96 bpm *H* (05/25/20 3:41 PM) 103 bpm *H* (05/25/20 3:03 PM) Blood Pressure [90-138/55-84 mm Hg] 125/71mm Hg (05/25/20 9:05 PM) 152/90mm Hg *H* (05/25/20 3:41 PM) 153/79mm Hg *H* (05/25/20 3:03 PM) Respiratory Rate [16-30 br/min] 20 br/min (05/25/20 9:05 PM) 20 br/min (05/25/20 3:41 PM) 20 br/min (05/25/20 3:03 PM) Temperature [96.8-100.4 DegF] 97.1 DegF (05/25/20 9:05 PM) 99.2 DegF (05/25/20 3:41 PM) 97.2 DegF (05/25/20 3:03 PM) Mode of Delivery (Oxygen) Room air (05/25/20 9:05 PM) Room air (05/25/20 3:41 PM) Room air (05/25/20 3:03 PM) Temperature Route Oral (05/25/20 9:05 PM) Oral (05/25/20 3:41 PM) Oral (05/25/20 3:03 PM) Dry Weight 82 kg (05/25/20 11:30 PM) 82 kg (05/25/20 11:39 AM) Social History Social History Type Response Smoking Status Current every day carlos pearl; Other: chewing tobacco; entered on: 11/28/16 Sex
--- OUTSIDE RECORDS SUMMARY | 2024-07-23 16:25 | XMS_ITS | Continuity of Care Document ---
Author Organization [facility] Address [address] [place] [address]- Care Team Providers Care Shingles Roofer Helper Name Role Phone Layla LANDRUM, Bety Brewster Primary Care Physician Encounter [facility] Date(s): 01/29/24 - 02/28/24 [facility] [address] [place] [id number] Allergies, Adverse Reactions, Alerts Substance Reaction Severity [...] 13:17:00 EST, Inhaler, Route to Pharmacy Electronically, [id number], [facility] #[facility], 175, cm, 10/11/22 8:53:00 ES... Start Date: 10/11/22 Status: Ordered apixaban 5 mg oral tablet 1 tablet = 5 mg, By Mouth, 2 times a day, # 120 tablet, 0 Refills, Maintenance, 08/24/22 20:36:00 EDT, Tablet, [facility], Partial fill upon patient request if [...] 08/24/22 20:37:00 EDT, Route to Pharmacy Electronically, [facility], Partial fill uponpatient request if the [...] 02/11/20 14:17:00 EDT, Route to Pharmacy Electronically, [facility] #[id number], 176, cm, 02/11/20 14:13:00 EDT, Height, 82, kg, 02/11/20 14:13:00... Start Date: 02/11/20 Status: Ordered Turmeric 1 capsule, By Mouth, Daily, Maintenance, 02/02/22 15:31:00 EDT, Partial fill upon patient request if the prescription is for a schedule II opioid drug. Start Date: 02/02/22 Status: Ordered Social History Social History Type Response Smoking Status Current every day sm oker; Other: chewing tobacco; entered on: 11/28/16 Sex Patient Care team information Care Team Personnel Name: Cherry Mora Position: S Outreach Member Role: Lifetime Consulting Physician Name: Layla LANDRUM, Bety Brewster Position: S Outreach Member Role: PCP Address: Address: [address] [place] [address] Name: Shaista Thurston RN Position: S RN [...] Persons Name: TRAVIS HUGGINS Address: home [address] [place] [address] Name: RONEN VINCENT Address: home [address] [place] [address] [place] [address]
--- OUTSIDE RECORDS SUMMARY | 2024-07-23 16:25 | XMS_ITS | Continuity of Care Document ---
Author Organization [facility] Address [address] [place] [address]- Care Team Providers Care Fine Arts Teacher Name Role Phone Layla LANDRUM, Bety Pino Primary Care Physician Encounter [facility] [place] Date(s): 10/13/21 - 10/13/[address] [address]- Encounter Diagnosis Alcohol intoxication(Final) - 10/13/21 Discharge Disposition: A-D/C Home Attending Physician: Gwen Holcomb MD Admitting Physician: Gwen Holcomb MD Referring Physician: Not on Staff, Referring [...] Maintenance,09/09/21 9:49:00 EDT, Route to Pharmacy Electronically, [facility] #[id number], Partial fill upon patient request if the prescription is for a ken... Start Date: 09/09/21 Status: Ordered meloxicam 5 mg oral capsule 1 capsule = 5 mg, By Mouth, Daily, # 30 capsule, 0 Refills, Maintenance, 02/11/20 14:17:00 EDT, Capsule, [facility] #[id number], 176, cm, 02/11/20 14:13:00 EDT, Height, 82, [...] 0 Refills, Maintenance, 09/09/21 9:51:00 EDT, Gum, [facility] #[id number], Partial fill upon patient request if the prescription is for a schedule II opioid drug., 170, cm, 09/09... Start Date: 09/09/21 Status: Ordered traZODone 50 mg oral tablet 50 mg, 1, tablet, By Mouth, Daily at bedtime, # 3 capsule, Refills 0, Tot. Refills 0, Maintenance, 02/11/20 14:17:00 EDT, Route to Pharmacy Electronically, [facility] #[id number], 176, cm, 02/11/20 14:13:00 EDT, Height, 82, kg, 02/11/20 14:13:00... Start Date: 02/11/20 Status: Ordered Vital Signs Most recent to oldest [Reference Range]: 1 Height 175 cm (10/13/21 10:57 AM) Weight 83.5 kg (10/13/21 10:57 AM) Oxygen Saturation [94-100 %] 96 % (10/13/21 10:57 AM) Pulse Rate [55-90 bpm] 77 bpm (10/13/21 10:57 AM) Blood Pressure [90-138/55-84 mm Hg] 122/ 73mm Hg (10/13/21 10:57 AM) Respiratory Rate [16-30 br/min] 18 br/mi n (10/13/21 10:57 AM) Temperature [96.8-100.4 DegF] 98.3 DegF (10/13/21 10:57 AM) Mode of Delivery (Oxygen) Room air (10/13/21 10:57 AM) Blood pressure sites Arm, right (10/13/21 10:57 AM) Temperature Route Oral (10/13/21 10:57 AM) Dry Weight 83.5 kg (10/13/21 10:57 AM) Weight Obtained Via Patient/family state d (10/13/21 10:57 AM) Dry Weight Obtained Via Patient/family s tated (10/13/21 10:57 AM) Social History Social History Type Response Smoking Status Current every day sm oker; Other: chewing tobacco; entered on: 11/28/16 Sex
--- OUTSIDE RECORDS SUMMARY | 2024-07-23 16:25 | XMS_ITS | Continuity of Care Document ---
Author Organization [facility] Address [address] [place] [address]- Care Team Providers Care Licensed Insurance Sales Agent Name Role Phone Layla LANDRUM, Bety Pino Primary Care Physician Encounter [facility] [place] Date(s): 08/26/21 - 09/25/21 [facility] [address] [place] [address]- Attending Physician: Isac Fung Admitting Physician: AdmIsac [...] Maintenance,09/09/21 9:49:00 EDT, Route to Pharmacy Electronically, [facility] #[id number], Partial fill upon patient request if the prescription is for a ken... Start Date: 09/09/21 Status: Ordered meloxicam 5 mg oral capsule 1 capsule = 5 mg, By Mouth, Daily, # 30 capsule, 0 Refills, Maintenance, 02/11/20 14:17:00 EDT, Capsule, [facility] #[id number], 176, cm, 02/11/20 14:13:00 EDT, Height, 82, [...] 0 Refills, Maintenance, 09/09/21 9:51:00 EDT, Gum, [facility] #[id number], Partial fill upon patient request if the prescription is for a schedule II opioid drug., 170, cm, 09/09... Start Date: 09/09/21 Status: Ordered traZODone 50 mg oral tablet 50 mg, 1, tablet, By Mouth, Daily at bedtime, # 3 capsule, Refills 0, Tot. Refills 0, Maintenance, 02/11/20 14:17:00 EDT, Route to Pharmacy Electronically, [facility] #[id number], 176, cm, 02/11/20 14:13:00 EDT, Height, 82, kg, 02/11/20 14:13:00... Start Date: 02/11/20 Status: Ordered Social History Social History Type Response Smoking Status Current every day sm oker; Other: chewing tobacco; entered on: 11/28/16 Sex
--- OUTSIDE RECORDS SUMMARY | 2024-07-23 16:25 | XMS_ITS | Continuity of Care Document ---
Author Organization [facility] Address [address] [place] [address]- Care Team Providers Care Service Developer Name Role Phone Layla LANDRUM, Bety Brewster Primary Care Physician Encounter [facility] [place] Date(s): 06/22/23 - 07/22/23 [facility] [address] [place] [address]- Attending Physician: Admtr, Isac Admitting Physician: Admtr, Ar8 Referring Physician: Admtr, Ar8 Allergies, Adverse Reactions, Alerts Substance Reaction Severity [...] 13:17:00 EST, Inhaler, Route to Pharmacy Electronically, [id number], [facility] #63, 175, cm, 10/11/22 8:53:00 ES... Start Date: 10/11/22 Status: Ordered apixaban 5 mg oral tablet 1 tablet = 5 mg, By Mouth, 2 times a day, # 120 tablet, 0 Refills, Maintenance, 08/24/22 20:36:00 EDT, Tablet, [facility], Partial fill upon patient [...] 08/24/22 20:37:00 EDT, Route to Pharmacy Electronically, [facility], Partial fill uponpatient request [...] 02/11/20 14:17:00 EDT, Route to Pharmacy Electronically, [facility] #[id number], 176, cm, 02/11/20 14:13:00 EDT, Height, 82, [...] Consulting Physician Name: Bety Rich NP Position: [facility] Outreach Member Role: PCP Address: Address: [address] [place] [address] Name: Shaista Thurston RN Position: S RN [...] Persons Name: TRAVIS HUGGINS Address: home [address] [place] [address] Name: RONEN VINCENT Address: home [address] [place] [address]
--- OUTSIDE RECORDS SUMMARY | 2024-07-23 16:25 | XMS_ITS | Continuity of Care Document ---
Author Organization [facility] Address [address] [place] [address]- Care Team Providers Care Bait Digger Name Role Phone Layla LANDRUM, Bety Pino Primary Care Physician [phone] Encounter [facility] [place] Date(s): 10/24/21 - 10/25/[address] [address]- Discharge Disposition: A-D/C Home Attending Physician: Avinash Vivar MD Admitting Physician: Avinash Vivar MD Referring Physician: Not on Staff, Referring [...] Maintenance,09/09/21 9:49:00 EDT, Route to Pharmacy Electronically, [facility] #[id number], Partial fill upon patient request if the prescription is for a ken... Start Date: 09/09/21 Status: Ordered meloxicam 5 mg oral capsule 1 capsule = 5 mg, By Mouth, Daily, # 30 capsule, 0 Refills, Maintenance, 02/11/20 14:17:00 EDT, Capsule, [facility] #[id number], 176, cm, 02/11/20 14:13:00 EDT, Height, 82, [...] 0 Refills, Maintenance, 09/09/21 9:51:00 EDT, Gum, [facility] #[id number], Partial fill upon patient request if the prescription is for a schedule II opioid drug., 170, cm, 09/09... Start Date: 09/09/21 Status: Ordered traZODone 50 mg oral tablet 50 mg, 1, tablet, By Mouth, Daily at bedtime, # 3 capsule, Refills 0, Tot. Refills 0, Maintenance, 02/11/20 14:17:00 EDT, Route to Pharmacy Electronically, [facility] #[id number], 176, cm, 02/11/20 14:13:00 EDT, Height, 82, kg, 02/11/20 14:13:00... Start Date: 02/11/20 Status: Ordered Vital Signs Most recent to oldest [Reference Range]: 1 2 3 Height 175 cm (10/24/21 6:41 PM) Weight 85 kg (10/24/21 6:41 PM) Oxygen Saturation [94-100 %] 94 % (10/25/21 4:04 AM) 98 % (10/24/21 6:41 PM) Pulse Rate [55-90 bpm] 76 bpm (10/25/21 4:04 AM) 87 bpm (10/24/21 6:41 PM) Blood Pressure [90-138/55-84 mm Hg] 117/68mm Hg (10/25/21 4:04 AM) 130/82mm Hg (10/24/21 6:41 PM) Respiratory Rate [16-30 br/min] 18 br/min (10/25/21 4:04 AM) 18 br/min (10/25/21 3:40 AM) 18 br/min (10/24/21 6:41 PM) Temperature [96.8-100.4 DegF] 97.6 DegF (10/25/21 4:04 AM) 98.2 DegF (10/24/21 6:41 PM) Mode of Delivery (Oxygen) Room air (10/25/21 4:04 AM) Blood pressure sites Arm, right (10/25/21 4:04 AM) Leg, left (10/24/21 6:41 PM) Temperature Route Oral (10/25/21 4:04 AM) Oral (10/24/21 6:41 PM) Dry Weight 85 kg (10/24/21 6:41 PM) Social History Social History Type Response Smoking Status Current every day carlos pearl; Other: chewing tobacco; entered on: 11/28/16 Sex
--- OUTSIDE RECORDS SUMMARY | 2024-07-23 16:25 | XMS_ITS | Continuity of Care Document ---
Author Organization [facility] Address [address] [place] [address]- Care Team Providers Care Control Room Supervisor Name Role Phone Layla LANDRUM, Bety Brewster Primary Care Physician Encounter [facility] [place] Date(s): 03/06/24 - 04/18/24 [facility] [address] [place] [address] Attending Physician: Meño LANDRUM, Arti White Admitting Physician: Meño LANDRUM, Arti White Referring Physician: Layla LANDRUM, Bety Brewster Allergies, Adverse Reactions, Alerts Substance Reaction Severity [...] 13:17:00 EST, Inhaler, Route to Pharmacy Electronically, [id number], [facility] #[facility], 175, cm, 10/11/22 8:53:00 ES... Start Date: 10/11/22 Status: Ordered apixaban 5 mg oral tablet 1 tablet = 5 mg, By Mouth, 2 times a day, # 120 tablet, 0 Refills, Maintenance, 08/24/22 20:36:00 EDT, Tablet, [facility], Partial fill upon patient [...] 08/24/22 20:37:00 EDT, Route to Pharmacy Electronically, [facility], Partial fill uponpatient request [...] 02/11/20 14:17:00 EDT, Route to Pharmacy Electronically, [facility] #[id number], 176, cm, 02/11/20 14:13:00 EDT, Height, 82, [...] Care Team Personnel Name: Cherry Mora Position: [facility] Outreach Member Role: Lifetime Consulting Physician Name: Bety Rich NP Position: S Outreach Member Role: PCP Address: Address: [address] [place] [address] Name: Shaista Thurston RN Position: S RN Member Role: Primary Care Nurse Name: Facundo Sosa RN Position: S RN Member Role: Primary Care Nurse Name: Mary White RN Position: [facility] SN RN Member Role: Primary Care Nurse Name: Dominique Velázquez RN Position: S RN Member Role: Primary Care Nurse Name: Coby Rodriguez RN Position: S RN Member Role: Primary Care Nurse Name: Eloina Campa RN Position: [facility] RN Member Role: Primary Care Nurse Care Team Related Persons Name: TRAVIS HUGGINS Address: home [address] [place] [address] Name: RONEN VINCENT Address: home [address] [place] [address]
--- OUTSIDE RECORDS SUMMARY | 2024-07-23 16:25 | XMS_ITS | Continuity of Care Document ---
Author Organization [facility] Address [address] [place] [address]- Care Team Providers Care Motor Bike Mechanic Name Role Phone Layla LANDRUM, Bety Pino Primary Care Physician [phone] Encounter [facility] [place] Date(s): 08/21/21 - 08/21/[address] [address]- Discharge Disposition: A-Error Chart/Home (ED Only) Attending Physician: Nader Max DO Admitting Physician: Nader Max DO Referring Physician: Not on Staff, Referring [...] Maintenance, 09/10/17 14:11:52, Route to Pharmacy Electronically, [id number], [facility] [address] Start Date: 09/10/17 Stop Date: 10/10/17 Status: [...] Maintenance, 02/21/17 11:03:20, Route to Pharmacy Electronically, [id number], [facility] [address] Start Date: 02/21/17 Status: Ordered meloxicam 5 mg oral capsule 1 capsule = 5 mg, By Mouth, Daily, # 30 capsule, 0 Refills, Maintenance, 02/11/20 14:17:00 EDT, Capsule, [facility] #[id number], 176, cm, 02/11/20 14:13:00 EDT, Height, 82, kg, 02/11/20 14:13:00EDT, Dry Weight Start Date: 02/11/20 Status: Ordered Thiamine Daily, Refills 0, Maintenance, 05/25/20 15:50:00 EDT Start Date: 05/25/20 Status: Ordered traZODone 50 mg oral tablet 50 mg, 1, tablet, By Mouth, Daily at bedtime, # 3 capsule, Refills 0, Tot. Refills 0, Maintenance, 02/11/20 14:17:00 EDT, Route to Pharmacy Electronically, [facility] #[id number], 176, cm, 02/11/20 14:13:00 EDT, Height, 82, kg, 02/11/20 14:13:00... Start Date: 02/11/20 Status: Ordered Social History Social History Type Response Smoking Status Current every day sm oker; Other: chewing tobacco; entered on: 11/28/16 Sex
--- OUTSIDE RECORDS SUMMARY | 2024-07-23 16:25 | XMS_ITS | Continuity of Care Document ---
Author Organization [facility] Address [address] [place] [address]- Care Team Providers Care Manager Cardiac Name Role Phone Gen Jeronimo Primary Care Physician [place] [facility] [place] 02/11/20 - 02/11/[address] [address]- [facility] [phone] Discharge Disposition: A-D/C Home Attending Physician: Saida [...] Maintenance, 09/10/17 14:11:52, Route to Pharmacy Electronically, [id number], [facility] [address] Start Date: 09/10/17 Stop Date: 10/10/17 Status: [...] Maintenance, 02/21/17 11:03:20, Route to Pharmacy Electronically, [id number], [facility] Start Date: 02/21/17 Status: Ordered meloxicam 5 mg oral capsule 1 capsule = 5 mg, By Mouth, Daily, # 30 capsule, 0 Refills, Maintenance, 02/11/20 14:17:00 EDT, Capsule, [facility] #[id number], 176, cm, 02/11/20 14:13:00 EDT, Height, 82, kg, 02/11/20 14:13:00EDT, Dry Weight Start Date: 02/11/20 Status: Ordered Nicorette Fruit Chill 4 mg [...] Print Requisition Start Date: 12/02/16 Status: Ordered traZODone 50 mg oral tablet 50 mg, 1, tablet, By Mouth, Daily at bedtime, # 3 capsule, Refills 0, Tot. Refills 0, Maintenance, 02/11/20 14:17:00 EDT, Route to Pharmacy Electronically, [facility] #[id number], 176, cm, 02/11/20 14:13:00 EDT, Height, 82, kg, 02/11/20 14:13:00... Start Date: 02/11/20 Status: Ordered Vital Signs Most recent to oldest [Reference Range]: 1 2 Height 176 cm (02/11/20 2:13 PM) 176 cm (02/11/20 11:18 AM) Weight 82 kg (02/11/20 2:13 PM) 82 kg (02/11/20 11:18 AM) Oxygen Saturation [94-100 %] 93 % *L* (02/11/20 2:13 PM) Pulse Rate [55-90 bpm] 88 bpm (02/11/20 2:13 PM) Body Mass Index [18.5-24.99] 26.47 *H* (02/11/20 2:13 PM) Blood Pressure [90-138/55-84 mm Hg] 131/ 87mm Hg (02/11/20 2:13 PM) Respiratory Rate [16-30 br/min] 16 br/mi n (02/11/20 2:13 PM) Temperature [96.8-100.4 DegF] 97.4 DegF (02/11/20 2:13 PM) Mode of Delivery (Oxygen) Room air (02/11/20 2:13 PM) Blood pressure sites Arm, left (02/11/20 2:13 PM) Temperature Route Oral (02/11/20 2:13 PM) Dry Weight 82 kg (02/11/20 2:13 PM) 82 kg (02/11/20 11:18 AM) Weight Obtained Via Patient/family state d (02/11/20 11:18 AM) Social History Social History Type Response Smoking Status Current every day sm oker; Other: chewing tobacco; entered on: 11/28/16 Sex
--- OUTSIDE RECORDS SUMMARY | 2024-07-23 16:25 | XMS_ITS | Continuity of Care Document ---
Author Organization [facility] Address [address] [place] [address]- Care Team Providers Care President Ergonomic Consulting Name Role Phone Layla LANDRUM, Bety Brewster Primary Care Physician Encounter [facility] [place] Date(s): 02/23/24 - 03/24/24 [facility] [address] [place] [address]- Attending Physician: Admtr, Isac Admitting Physician: Admtr, [...] 13:17:00 EST, Inhaler, Route to Pharmacy Electronically, [id number], [facility] #[facility], 175, cm, 10/11/22 8:53:00 ES... Start Date: 10/11/22 Status: Ordered apixaban 5 mg oral tablet 1 tablet = 5 mg, By Mouth, 2 times a day, # 120 tablet, 0 Refills, Maintenance, 08/24/22 20:36:00 EDT, Tablet, [facility], Partial fill upon patient request [...] 08/24/22 20:37:00 EDT, Route to Pharmacy Electronically, [facility], Partial fill uponpatient request if [...] 02/11/20 14:17:00 EDT, Route to Pharmacy Electronically, [facility] #[id number], 176, cm, 02/11/20 14:13:00 EDT, Height, 82, [...] Care team information Care Team Personnel Name: Morgan Cherry Position: S Outreach Member Role: Lifetime Consulting Physician Name: Bety Rich NP Position: [facility] Outreach Member Role: PCP Address: Address: [address] [place] [address] Name: Shaista Thurston RN Position: S RN [...] Persons Name: TRAVIS HUGGINS Address: home [address] [place] [address] Name: RONEN VINCENT Address: home [address] [place] [address]
--- OUTSIDE RECORDS SUMMARY | 2024-07-23 16:25 | XMS_ITS | Continuity of Care Document ---
Author Organization [facility] Address [address] [place] [address]- Care Team Providers Care Application Integration Specialist Name Role Phone Layla LANDRUM, Bety Pino Primary Care Physician [place] [facility](s): 10/09/22 - 10/11/[address] [address]- Encounter Diagnosis Alcohol intoxication(Final) - 10/09/22 Discharge Disposition: A-D/C Home Attending Physician: Sharmila Ortez MD Admitting Physician: Shelli CANO, Natalie Archibald [...] 13:17:00 EST, Inhaler, Route to Pharmacy Electronically, [id number], [id number], 175, cm, 10/11/22 8:53:00 ES... Start Date: 10/11/22 Status: Ordered apixaban 5 mg oral tablet 1 tablet = 5 mg, By Mouth, 2 times a day, # 120 tablet, 0 Refills, Maintenance, 08/24/22 20:36:00 EDT, Tablet, [facility], Partial fill upon patient request if [...] opioid drug. Start Date: 08/23/22 Status: Ordered azithromycin 500 mg oral tablet = 500 mg, By Mouth, Daily, for 2 days, # 2 tablet, 0 Refills, Acute 10/14/22 13:00:00 EST, 10/12/2213:00:00 EST, Tablet, [facility], Partial fill upon patient request if the prescription is for a schedule II opioid drug., 175, cm, 10/11/22 8:... Start Date: 10/12/22 Stop Date: 10/14/22 Status: Ordered docusate sodium 100 mg oral capsule 100 mg, 1, capsule, By Mouth, 2 times a day, # 60 capsule, Refills 0, Tot. Refills 0, Maintenance, 08/24/22 20:37:00 EDT, Route to Pharmacy Electronically, [facility], Partial fill uponpatient request if the [...] opioid drug. Start Date: 08/31/21 Status: Ordered predniSONE 20 mg oral tablet 2 tablet = 40 mg, By Mouth, Daily, for 3 days, # 6 tablet, 0 Refills, Acute 10/14/22 13:17:00 EST, 10/11/22 13:17:00 EST, Tablet, [facility], Partial fill upon patient request if the prescription is for a schedule II opioid drug., 175, cm, 11/... Start Date: 10/11/22 Stop Date: 10/14/22 Status: Ordered traZODone 50 mg oral tablet 50 mg, 1, tablet, By Mouth, Daily at bedtime, # 3 capsule, Refills 0, Tot. Refills 0, Maintenance, 02/11/20 14:17:00 EDT, Route to Pharmacy Electronically, [id number], 176, cm, 02/11/20 14:13:00 EDT, Height, 82, kg, 02/11/20 14:13:00... Start Date: 02/11/20 Status: Ordered Turmeric 1 capsule, By Mouth, Daily, Maintenance, 02/02/22 15:31:00 EDT, Partial fill upon patient request if the prescription is for a schedule II opioid drug. Start Date: 02/02/22 Status: Ordered Results Orders for Microbiology Reports Name Date Sputum Culture w/ Gram Smear 10/10/22 Blood Culture 10/09/22 Blood Culture #2 10/09/22 Microbiology Reports TEST:Sputum Culture STATUS:Unauthenticated BODY SITE: SOURCE:INDUCE COLLECTED DATE/TIME:10/10/22 8:49 PM Sputum Culture SPECIMEN DESCRIPTION : INDUCED SPUTUM SPECIAL REQUESTS : NONE Test performed at [facility], [address] [place] [address], Frida Foy MD, Med Director, CLGA [id number] GRAM STAIN : 1+ SQ.EPITHELIAL CELLS 1+ POLYMORPHONUCLEAR LEUKOCYTES 3+ GRAM POSITIVE COCCI 1+ GRAM POSITIVE RODS REPORT STATUS : PRELIMINARY REPORT TEST:Blood Culture STATUS:Unauthenticated BODY SITE: SOURCE:Blood COLLECTED DATE/TIME:10/09/22 4:32 PM Blood Culture SPECIMEN DESCRIPTION : BLOOD RAC SPECIAL REQUESTS : NONE Test performed at [facility], [address] [place] [address], Frida Foy MD, Med Director, CLIA [id number] CULTURE : NO GROWTH AFTER 24 HOURS REPORT STATUS : PRELIMINARY REPORT TEST:Blood Culture, Second Order STATUS:Unauthenticated BODY SITE: SOURCE:Blood COLLECTED DATE/TIME:10/09/22 4:32 PM Blood Culture, Second Order SPECIMEN DESCRIPTION : BLOOD LWRIST SPECIAL REQUESTS : NONE Test performed at [facility], [address] [place] [address], Frida Foy MD, Med Director, CLIA [id number] CULTURE : NO GROWTH AFTER 24 HOURS REPORT STATUS : PRELIMINARY REPORT Radiology Reports * Exam Date Time Procedure Performing Provider Status 10/09/22 5:[address] Angio Chest Radha Keenan; Auth (Verified) Notes: (CT Angio Chest) Reason For Exam: PE suspected, Intermediate prob, positive D-dimer,;Other: RESULT: CT Angio Chest EXAMINATION: CT Angio Chest INDICATION: Hx of Present Illness: Worsening cough and SOB x5 days. Dx with PE 2 months ago, stopped taking apixaban.; Reason: Other:; PE suspected, Intermediate prob, positive D-dimer,; Clinical Question(s): Pulmonary Embolism TECHNIQUE: Spiral CTA of the chest was performed after rapid IV contrast administration without cardiac gating, triggered by an MICHEAL on the main pulmonary artery. Images are formatted in multiple planes using 2-D multiplanar and 3-D maximum intensity projection. 100 cc of Omnipaque 300 was administered intravenously. Weight-based protocol using automatic tube modulation was used to optimize exposure parameters. CTDIvol Body: 8.80 mGy, DLP Body: 374 mGy*cm. COMPARISONS: None. ANGIOGRAPHIC FINDINGS: Evaluation is severely limited by motion artifact and poor contrast opacification with no convincing central pulmonary embolism and nondiagnostic evaluation of the lobar, segmental and subsegmental levels. The main pulmonary artery is enlarged measuring up to 3.4 cm. Mild right heart enlargement and flattening of the interventricular septum is similar to the prior study. No reflux of IV contrast into the IVC. No acute aortic abnormality seen on this study performed without cardiac gating. NON-ANGIOGRAPHIC FINDINGS: Roller Varnisher View Findings, Lines and Tubes: None. Trachea and Airways: Patent without evidence of tracheal or endobronchial lesion. Lungs and Pleura: Motion degraded evaluation without large consolidation or other acute abnormality. Small pulmonary nodules may be obscured. No effusion or pneumothorax. Mediastinum and gail: No mass or hematoma. No mediastinal or hilar lymphadenopathy. No esophageal abnormality. Heart: Heart is at the upper limits of normal for size. No pericardial effusion. Chest Wall Soft Tissues: Normal. Diaphragm and upper abdomen: Diffuse hypoattenuation of the imaged portions of the liver compatiblewith hepatic steatosis. Bones: No acute abnormality. IMPRESSION: 1. Severely limited study due to diffuse respiratory motion and poor timing of the contrast bolus. No central pulmonary embolism is identified, with very limited evaluation of the lobar, segmental, and subsegmental vessels. 2. Similar mildly enlarged main pulmonary artery and right heart. 3. Hepatic steatosis. I have personally reviewed the images and I agree with this report. WSN: [id number] Ordering Physician: Misael Titus Dictated By: Jayro Monsalve MD Dictated Date/Time: 10/09/22 7:11 pm Reviewed By: Michael Reilly MD Signed By: Michael Reilly MD Signed Date/Time: 10/09/22 7:16 pm Transcribed By: GARLAND Transcribed Date/Time: 10/09/22 6:18 pm * Exam Date Time Procedure Performing Provider Status 10/09/22 4:57 PM Chest Portable Radha Keenan Carlyn; Auth (Verified) Notes: (Chest Portable) Reason For Exam: Shortness of Breath RESULT: Chest Portable Chest Portable Hx of Present Illness: Worsening cough and SOB x5 days. Dx with PE 2 months ago, stopped taking Apixiban.; Reason: Shortness of Breath; Clinical Question(s): CHF COMPARISON: 08/23/2022 FINDINGS: LINES AND TUBES: None. LUNGS AND PLEURA: Low lung volumes. No definite consolidation or overt pulmonary edema. No pleural effusion. No pneumothorax. HEART, MEDIASTINUM AND GALI: Heart is normal in size. Normal mediastinal and hilar contour. BONES AND SOFT TISSUES: No acute abnormality. IMPRESSION: No acute abnormality. WSN: [id number] Ordering Physician: Misael Titus Dictated By: Braden Castro MD Dictated Date/Time: 10/09/22 4:58 pm Reviewed By: Braden Castro MD Signed By: Braden Castro MD Signed Date/Time: 10/09/22 4:58 pm Transcribed By: GARLAND Transcribed Date/Time: 10/09/22 4:57 pm Vital Signs Most recent to oldest [Reference Range]: 1 2 3 Height 175 cm (10/11/22 8:53 AM) 175 cm (10/11/22 6:40 AM) 175 cm (10/10/22 11:48 PM) Weight 83.5 kg (10/10/22 12:07 PM) 82 kg (10/09/22 4:32 PM) Oxygen Saturation [94-100 %] 93 % *L* (10/11/22 10:00 AM) 97 % (10/11/22 8:53 AM) 95 % (10/11/22 6:40 AM) Pulse Rate [55-90 bpm] 57 bpm (10/11/22 8:53 AM) 50 bpm *L* (10/11/22 6:40 AM) 56 bpm (10/10/22 11:48 PM) Body Mass Index [18.5-24.99 kg/m2] 27.27 kg/m2 *H* (10/10/22 12:07 PM) Blood Pressure [90-138/55-84 mm Hg] 137/90mm Hg (10/11/22 8:53 AM) 136/83mm Hg (10/11/22 6:40 AM) 129/79mm Hg (10/10/22 11:48 PM) Respiratory Rate [16-30 br/min] 16 br/min (10/11/22 8:53 AM) 18 br/min (10/11/22 6:40 AM) 18 br/min (10/10/22 11:48 PM) Temperature [96.8-100.4 DegF] 98 DegF (10/11/22 8:53 AM) 97.9 DegF (10/11/22 6:40 AM) 97.7 DegF (10/10/22 11:48 PM) Liters per Minute 1 L/min (10/11/22 8:53 AM) 1 L/min (10/11/22 6:40 AM) 1 L/min (10/10/22 8:00 PM) Mode of Delivery (Oxygen) Room air (10/11/22 10:00 AM) Nasal cannula (10/11/22 8:53 AM) Nasal cannula (10/11/22 6:40 AM) Blood pressure sites Arm, left (10/11/22 8:53 AM) Arm, right (10/11/22 6:40 AM) Arm, right (10/10/22 11:48 PM) Temperature Route Oral (10/11/22 8:53 AM) Oral (10/11/22 6:40 AM) Oral (10/10/22 11:48 PM) Dry Weight 83.5 kg (10/10/22 12:07 PM) 82 kg (10/09/22 4:32 PM) Weight Obtained Via Bed scale (10/10/22 12:07 PM) Patient/family stated (10/09/22 4:32 PM) Dry Weight Obtained Via Bed scale (10/10/22 12:07 PM) Social History Social History Type Response Smoking Status Current every day sm oker; Other: chewing tobacco; entered on: 11/28/16 Sex Admission evaluation note * Shelli CANO, Natalie Archibald: MODIFY, MODIFY, MODIFY, MODIFY, PERFORM, MODIFY, MODIFY, MODIFY, MODIFY, MODIFY, MODIFY, MODIFY, MODIFY, MODIFY, MODIFY, MODIFY Event Display: Admission Note Authored Date: Patient: ??NÉSTOR VINCENT ? Age:??61 Years?Sex:??Male?:??1960?? Chief Complaint/Reason for Consultation etoh, drank bottle vodka today; course cough, ALEJANDRINA. EMS started oxygen 6 L via nc d/t 94% RA. upper airway wheezing History of Present Illness 61-year-old??male patient with past medical history alcohol abuse, anxiety, ??prior DVT,?? chronic shoulder pain , depression??presented to the ED with?? alcohol intoxication, shortness of breath, cough ?Pre-Hospital course: ?-Patient reported progressively worsening cough, shortness of breath, fever, chills over the last 5 days, also there was a concern of excessive alcohol use over the last few days so he was brought to the ED by EMS for further evaluation ?-Patient denied chest pain, palpitations, presyncope/syncope, nausea/vomiting, diarrhea/constipation, weight gain, lower extremity edema, or motor/sensory deficits. ?-there have been no recent changes in the patient's diet, medication, or activity. ?ED course: ?On presentation to the ED vitals are stable Labs are significant for white blood cells 6.5, normal hemoglobin, D-dimer 1.5, lactate 5.6, ethanol level 265, positive RSV In the ED patient received Solu-Medrol, duo nebs, Vanco, Zosyn, IV fluids Patient be admitted for further management of possible alcohol intoxication, shortness of breath, lactic acidosis Review of Systems A full review of systems was completed and is otherwise negative except as mentioned in history of present illness.?? Objective Vital Signs?? Temperature: 99.2 DegF (10/09/22 16:32:00) Temperature Route: Oral (10/09/22 16:32:00) Pulse Rate: 90 bpm (10/09/22 18:30:00) Respiratory Rate: 19 br/min (10/09/22 18:30:00) Systolic Blood Pressure: 118 mm Hg (10/09/22 18:30:00) Diastolic Blood Pressure: 75 mm Hg (10/09/22 18:30:00) Pulse Pressure: 43 mm Hg (10/09/22 18:30:00) Oxygen Saturation: 98 % (10/09/22 18:30:00) Liters per Minute: 2 L/min (10/09/22 18:30:00) Mode of Delivery (Oxygen): Nasal cannula (10/09/22 18:30:00) ? Physical Exam ?General: AAOx3, in no acute distress ?Neuro: CN 2-12 grossly intact, motor strength 5/5 in all extremities, no sensory deficits?HEENT: EOMI, PERRL, mouth/nose/pharynx WNL ?Neck: Supple, no LAD, JVD not congested ?Heart: Normal S1/S2, RRR, no MRGs ?Lungs:??+ ??wheezing bilaterally ?Abdomen: +BS, soft, non-tender.non Distended. ?Extremities: Warm, no edema b/l. ?Musculoskeletal:??Joints (no swelling, denies tenderness). ? Assessment/Plan 60-year-old??male patient with past medical history alcohol abuse, anxiety, ??prior DVT,?? chronic shoulder pain , depression??presented to the ED with altered mental status, alcohol intoxication? Lactic acidosis Shortness of breath RSV viral infection Possible COPD exacerbation: ?-Patient reported progressively worsening cough, shortness of breath, fever, chills over the last 5 days, also there was a concern of excessive alcohol use over the last few days so he was brought to the ED by EMS for further evaluation On presentation to the ED vitals are stable Labs are significant for white blood cells 6.5, normal hemoglobin, D-dimer 1.5, lactate 5.6, ethanol level 265, positive RSV In the ED patient received Solu-Medrol, duo nebs, Vanco, Zosyn, IV fluids CTA chest:1. ??Severely limited study due to diffuse respiratory motion and poor timing of the contrast bolus. No central pulmonary embolism is identified, with very limited evaluation of the lobar, segmental, and subsegmental vessels. 2. ??Similar mildly enlarged main pulmonary artery and right heart. 3. ??Hepatic steatosis. ?? Assessment:??Patient shortness of breath, cough can be due to??underlying RSV infection, worsening COPD.??his lactic acidosis can be due to??dehydration, decreased oral intake, alcohol abuse ?? Plan: Prednisone for??4 more days Oxygen by nasal cannula chest PT, spirometry DuoNeb as needed Given soft blood pressure, lactic acidosis??we will continue Vanco and Zosyn for now??due to concern of sepsis, can de-escalate antibiotics??later??if he??clinically improves Follow-up blood culture results IV fluids ?? Alcohol intoxication:??CIWA protocol, social organization professor consult Recent history of PE: Continue apixaban ?? Chronic conditions: Cigarette smoking:??smoking cessation??counseling,??nicotine patch Depression,??anxiety:??Continue home meds ?QM: ?Code status:full ?DVT prophylaxis:??Apixaban ?Diet:regular?? Histories Allergies Allergies ?(Active and Proposed Allergies Only) Pollen? (Severity: Unknown severity, Onset: Unknown) ? Past Medical History/Problem List No problems documented. ? Past Surgical History No surgery history documented. ? Social History Tobacco Details:??Current every day smoker, Other: chewing tobacco. ? Family History No family history recorded. ? Medications Home Medications apixaban (apixaban 5 mg oral tablet)?2?tab(s)?10?Milligram?By Mouth?2 times a day?for 6?Days apixaban (apixaban 5 mg oral tablet)?1?tab(s)?5?Milligram?By Mouth?2 times a day?for 60?Days Atorvastatin (atorvastatin 40 mg oral tablet)?1?tab(s)?40?Milligram?By Mouth?Daily at bedtime Docusate (docusate sodium 100 mg oral capsule)?100?Milligram?1?capsule?By Mouth?2times a day Escitalopram (escitalopram 10 mg oral tablet)?1?tab(s)?10?Milligram?By Mouth?Daily Meloxicam (meloxicam 7.5 mg oral tablet)?1?tab(s)?7.5?Milligram?By Mouth?Daily Multivitamin?1?tab(s)?By Mouth?Daily Naltrexone (naltrexone 50 mg oral tablet)?1?tab(s)?50?Milligram?By Mouth?Daily Trazodone (traZODone 50 mg oral tablet)?50?Milligram?1?tablet?By Mouth?Daily at bedtime turmeric (Turmeric)?1?capsule?By Mouth?Daily ? Results Recent Labs BLOOD COUNT & DIFF WBC 6.5 k/mm3 ()?? 10/09/2022 16:32 RBC 4.72 m/mm3 ()?? 10/09/2022 16:32 Hgb 15.4 Gm/dL ()?? 10/09/2022 16:32 Hct 43.4 % ()?? 10/09/2022 16:32 MCV 91.9 femtoliters ()?? 10/09/2022 16:32 MCH 32.6 pg ()?? 10/09/2022 16:32 MCHC 35.5 g/dL ()?? 10/09/2022 16:32 Platelet Count 249 k/mm3 ()?? 10/09/2022 16:32 RDW-SD 42.9 femtoliters ()?? 10/09/2022 16:32 MPV 8.3 femtoliters (Low)?? 10/09/2022 16:32 Nucleated RBC (Automated) 0.0 #/100 WBC'S ()?? 10/09/2022 16:32 Abs. NRBC 0.0 k/mm3 ()?? 10/09/2022 16:32 Abs. Neut 4.3 k/mm3 ()?? 10/09/2022 16:32 Abs. Lymph 1.1 k/mm3 ()?? 10/09/2022 16:32 Abs. [place] 1.0 k/mm3 ()?? 10/09/2022 16:32 Abs. Eo 0.0 k/mm3 ()?? 10/09/2022 16:32 Abs. Baso 0.1 k/mm3 ()?? 10/09/2022 16:32 Neut % 66.0 % ()?? 10/09/2022 16:32 Lymph % 16.5 % ()?? 10/09/2022 16:32 [place] % 15.6 % (High)?? 10/09/2022 16:32 Eos % 0.6 % ()?? 10/09/2022 16:32 Baso % 0.8 % ()?? 10/09/2022 16:32 Imm Gran 0.5 % ()?? 10/09/2022 16:32 Abs. Imm Gran 0.0 k/mm3 ()?? 10/09/2022 16:32 ?? BLOOD GAS CO % (Carboxyhemoglobin) 1 % ()?? 10/09/2022 17:20 ?? CHEM GENERAL Sodium 141 mmol/L ()?? 10/09/2022 16:32 Potassium 3.4 mmol/L (Low)?? 10/09/2022 16:32 Chloride 97 mmol/L (Low)?? 10/09/2022 16:32 Bicarbonate Level 25 mmol/L ()?? 10/09/2022 16:32 Anion Gap 19 (High)?? 10/09/2022 16:32 Glucose Level 169 mg/dL (High)?? 10/09/2022 16:32 BUN 19 mg/dL ()?? 10/09/2022 16:32 Creatinine-Blood 0.8 mg/dL ()?? 10/09/2022 16:32 Estimated GFR Creatinine 97 ML/MIN/1.73 M2 ()?? 10/09/2022 16:32 Calcium 9.3 mg/dL ()?? 10/09/2022 16:32 Protein, Total 6.7 Gm/dL ()?? 10/09/2022 16:32 Albumin 4.5 Gm/dL ()?? 10/09/2022 16:32 AG Ratio 2.0 ()?? 10/09/2022 16:32 Alkaline Phosphatase 61 units/L ()?? 10/09/2022 16:32 AST (SGOT) 47 units/L (High)?? 10/09/2022 16:32 ALT (SGPT) 55 units/L (High)?? 10/09/2022 16:32 Bilirubin, Total 0.4 mg/dL ()?? 10/09/2022 16:32 Lactate 5.6 mmol/L (Critical)?? 10/09/2022 17:21 ?? COAG INR 0.9 ()?? 10/09/2022 16:32 Protime (PT) 9.8 seconds ()?? 10/09/2022 16:32 APTT 23.3 seconds (Low)?? 10/09/2022 16:32 D-Dimer 1.53 mg/L FEU (High)?? 10/09/2022 17:20 ?? MISC. CHEMISTRY Hold Gel Top SPECIMEN DISCARDED AFTER 1 WEEK ()?? 10/09/2022 17:20 ?? TOXICOLOGY/TDM Ethanol, Serum or Plasma 265 mg/dL (Abnormal)?? 10/09/2022 16:32 ?? VIROLOGY Influenza A PCR NEGATIVE ()?? 10/09/2022 15:53 Influenza B PCR NEGATIVE ()?? 10/09/2022 15:53 RSV PCR POSITIVE (Abnormal)?? 10/09/2022 15:53 COVID-19 PCR Specimen Source NASAL ()?? 10/09/2022 15:53 COVID-19 PCR Result NEGATIVE ()?? 10/09/2022 15:53 ? Hospital Progress note * Suma Hein RN: PERFORM, SIGN, VERIFY Event Display: Progress Note Hospital Authored Date: Patient: NÉSTOR VINCENT Age: 61 years Sex: Male : 1960 Associated Diagnoses: None Author: Suma Hein RN Findings Narrative/Incidental Cab services called for transportation, pt left unit at 1430, abx dose given before discharge, all instructions provided, understanding verbalized.. * Isha Tapia RN: SIGN, VERIFY, MODIFY, PERFORM Event Display: Progress Note Hospital Authored Date: Patient: NÉSTOR VINCENT Age: 61 years Sex: Male : 1960 Associated Diagnoses: None Author: Isha Tapia RN Findings Problem Related to Alteration in Respiratory Function (new) : Alteration in Respiratory Function/new 10/11/2022 3:00 EST Alteration in Resp Status Related to Influenza/RSV Goals & Outcomes, Respiratory Pt will maintain/resume baseline physical assessment, Pt will notdevelop complications r/t mechanical ventilation, Pt will maintain adequate nutritional intake, Pt will maintain/resume normal fluid/electrolyte balance, Pt will not develop complications r/t immobility, Pt will demonstrate proper technique w/self care procedures Interventions, Respiratory Assess for and report S&S of respiratory distress, Position for comfort & optimal oxygenation BH Goals/Interventions, Respiratory Yes Respiratory, Problem Start 10/10/2022 15:26 Reviewed Plan with, Respiratory Patient Patient Progression, Respiratory Plan Initiation . Nursing Data Vital Signs : VITAL SIGNS SECTION 10/10/2022 23:48 EST Temperature 97.7 DegF Temperature Route Oral Pulse Rate 56 bpm Respiratory Rate 18 br/min Systolic Blood Pressure 129 mm Hg Diastolic Blood Pressure 79 mm Hg Blood pressure sites Arm, right Mean Arterial Pressure 96 mm Hg Pulse Pressure 50 mm Hg Oxygen Saturation 96 % Mode of Delivery (Oxygen) Nasal cannula . Narrative/Incidental Pt alert and oriented x4. [place] [employer], hearing aides at bedside. No c/o pain/discomfort noted. On tele sinus ashleigh, heart rate 50s. LS: diminished. 1L via NC, no s/sx of respiratory distress noted. + bowel sounds all four quadrants. Using urinal at bedside, yellow colored urine. IV 20 to right forearm, patent and intact. Admitted for RSV/alcohol intoxification. CIWA @ 0130=1. CIWA @ 0530=1. Continues on enhanced respiratory precautions for RSV. In bed in a low, locked position. Call chang within reach. Able to make needs known. Safety maintained.. * Suma Hein RN: VERIFY, PERFORM, MODIFY, SIGN Event Display: Progress Note Hospital Authored Date: [id number] Patient: NÉSTOR VICNENT Age: 61 years Sex: Male : 1960 Associated Diagnoses: None Author: Suma Hein RN Findings Nursing Data Vital Signs : VITAL SIGNS SECTION 10/10/2022 20:00 EST Temperature 98.1 DegF Temperature Route Oral Pulse Rate 73 bpm Respiratory Rate 18 br/min Systolic Blood Pressure 126 mm Hg Diastolic Blood Pressure 72 mm Hg Blood pressure sites Arm, left Oxygen Saturation 96 % Liters per Minute 1 L/min Mode of Delivery (Oxygen) Nasal cannula . Narrative/Incidental Care provided [id number]. Pt continues on isolation for RSV. Calm, cooperative with care, CIWA (1) 1L NC O2 sats in mid-high 90's, productive cough, sputum sample sent to LAB. Voiding in the urinal clear yellow. . 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 Age:??61 Years?Sex:??Male?:??1960?? Patient Information Discharge Location: [facility] Primary Care Physician: Bety Rich NP Admit Date/Time: 10/09/22 20:09 Discharge Disposition Discharge Disposition: Home: No Services Discharge Diagnosis Alcohol intoxication (F10.929) Lactate blood increase (R79.89) Metabolic acidosis (E87.2) Hypomagnesemia (E83.42) RSV bronchitis (J20.5) SIRS without infection or organ dysfunction (R65.10) Hypoxia (R09.02) ?? _ Discharge Medications Albuterol (albuterol CFC free 90 mcg/inh inhalation aerosol)?2?puff(s)?By Mouth?Every 4hours?as needed?Wheezing/Shortness of Breath apixaban (apixaban 5 mg oral tablet)?1?tab(s)?5?Milligram?By Mouth?2 times a day?for 60?Days Atorvastatin (atorvastatin 40 mg oral tablet)?1?tab(s)?40?Milligram?By Mouth?Daily at bedtime Azithromycin (azithromycin 500 mg oral tablet)?500?Milligram?By Mouth?Daily?for 2?Days Docusate (docusate sodium 100 mg oral capsule)?100?Milligram?1?capsule?By Mouth?2times a day Escitalopram (escitalopram 10 mg oral tablet)?1?tab(s)?10?Milligram?By Mouth?Daily Meloxicam (meloxicam 7.5 mg oral tablet)?1?tab(s)?7.5?Milligram?By Mouth?Daily Multivitamin?1?tab(s)?By Mouth?Daily Naltrexone (naltrexone 50 mg oral tablet)?1?tab(s)?50?Milligram?By Mouth?Daily PredniSONE (predniSONE 20 mg oral tablet)?2?tab(s)?40?Milligram?By Mouth?Daily?for 3?Days Trazodone (traZODone 50 mg oral tablet)?50?Milligram?1?tablet?By Mouth?Daily at bedtime turmeric (Turmeric)?1?capsule?By Mouth?Daily ? Quality Measures Tobacco Use Treatment:? Vaccinations and Immunoprophylaxis influenza virus vaccine, inactivated: 0.5 mL (08/24/22 09:16:00) influenza virus vaccine, inactivated: 0.5 Unknown (07/13/20 08:00:00) influenza virus vaccine, inactivated: 0 Unknown (11/13/17 07:00:00) influenza virus vaccine, inactivated: 0.5 Unknown (09/23/16 07:00:00) influenza virus vaccine, inactivated: 0.5 Unknown (01/22/16 07:00:00) influenza virus vaccine, inactivated: 0 Unknown (10/03/13 07:00:00) influenza virus vaccine, inactivated: 0 Unknown (10/18/12 07:00:00) pneumococcal 23-valent vaccine: 0.5 mL (11/29/16 09:20:00) SARS-CoV-2 (COVID-19) mRNA-1273 vaccine: 0.25 Unknown (11/11/21 07:00:00) SARS-CoV-2 (COVID-19) mRNA-1273 vaccine: 0.5 Unknown (01/26/21 08:00:00) SARS-CoV-2 (COVID-19) mRNA-1273 vaccine: 0.5 Unknown (12/25/20 07:00:00) tetanus/diphtheria/pertussis, acel(Tdap): 0.5 Unknown (03/11/22 08:00:00) tetanus-diphtheria toxoids (Td): 0.5 Unknown (04/21/19 08:00:00) tetanus-diphtheria toxoids (Td): 0 Unknown (09/11/09 08:00:00) ?? Medications Started Azithromycin (azithromycin 500 mg oral tablet)?500?Milligram?By Mouth?Daily?for 2?Days PredniSONE (predniSONE 20 mg oral tablet)?2?tab(s)?40?Milligram?By Mouth?Daily?for 3?Days Albuterol (albuterol CFC free 90 mcg/inh inhalation aerosol)?2?puff(s)?By Mouth?Every 4hours?as needed?Wheezing/Shortness of Breath Medications Discontinued None Doses Changed None Allergies Allergies ?(Active and Proposed Allergies Only) Pollen? (Severity: Unknown severity, Onset: Unknown) ? PCP Follow-Up/Heads-Up Sputum culture final results Future Appointments Monday 12:40 PM EST ?? With: Alfredito CORNEJO, Gen Andino Where: [facility] [address] [address]- Hospital Course 61-year-old male patient with past medical history alcohol abuse, anxiety, prior DVT, chronic shoulder pain , depression presented to the ED with alcohol intoxication, shortness of breath, cough, found to be RSV positive, and to have likely alcoholic metabolic acidosis.. During his hospitalization patient was treated for the following conditions: ? Alcohol intoxication (F10.929): Patient is alert, oriented x4, states used alcohol to try to calm his symptoms of cough and shortness of breath. He has been free of alcohol for 3 months per her statement, and??that date??prior to his??admission??was the first time when he used alcohol??in the last 3 months;??he admits he had 2 pints of vodka. At this time no significant alcohol withdrawal symptoms. Vital signs have improved, lactate is now normal. Metabolic acidosis noted on arrival which is related to alcohol intoxication also resolved with IV fluids. 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 ? Lactate blood increase (R79.89): Lactate was elevated at 6.1, patient received vigorous IV fluid resuscitation with crystalloid, and vancomycin and Zosyn IV. CT chest with contrast shows no evidence of pneumonia, patient declines diarrhea, urinary frequency or urgency. Outside of RSV related bronchitis no other signs or symptoms of infection. Discussed with ID, ??Ronn, on 10/02 8 AM awaiting??discontinued antibiotics, both vancomycin and Zosyn. Lactate improved to normal and vital signs are stable. Most likely cause of increased lactate is alcohol intoxication.?See below??in setting,??bronchitis we are proceeding with azithromycin 500 mg daily for 3 days,??received the first dose t alyce, has 2 more days??to complete his treatment on discharge.??Patient is clinically hemodynamically stable, much improved, appropriate for discharge??home today. ? 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 Hypomagnesemia (E83.42): Magnesium 1.5, was replaced with IV magnesium, this morning is normal at 2.2. ? RSV bronchitis (J20.5):??Evident by physical exam, with??no strong evidence of pneumonia on the CT chest, with patient's symptoms improving.??Low procalcitonin,??does not need??vancomycin and Zosyn IV.?However for upper respiratory??infection??with a sputum culture showing??so far 3+ gram-positive cocci and 1+ gram-positive rods we proceeded with azithromycin 500 mg daily for 3 days. Patient also received inhalers, and??prednisone 40 mg daily. His symptoms have improved,??does not require oxygen??supplementation anymore, feels??better, has no leukocytosis and no fever today.??Patient is eager to be discharged home which is??appropriate given his clinical and hemodynamical stability.??I recommend patient finish his series??prednisone therapy at home, has 3 more days of prednisone 40 mg daily??and he finishes his azithromycin has 2 more days of??500 mg azithromycin daily.??Albuterol asneeded was sent to his pharmacy as well.??Patient should follow-up with his PCP in 1 week??who will inform him on the final results of his sputum culture. ? SIRS without infection or organ dysfunction (R65.10): Met criteria on admission with tachycardia and tachypnea, resolved at this time.?Was secondary to??RSV bronchitis, see above no other sources of infection were identified. CT angio chest without evidence of pneumonia. ? Hypoxia (R09.02): Likely related to RSV bronchitis. CT angio chest shows no evidence of significantPE. D-dimer was elevated, yet ruled out significant PE. No clinical suspicion for lower extremity or upper extremity DVT,??hypoxia has resolved. Patient will continue his home Eliquis for history of PE. ?? Objective Measurements?? Height: 175 cm (10/11/22) Weight: 83.5 kg (10/10/22) Dry Weight: 83.5 kg (10/10/22) Body Mass Index:??27.27 kg/m2??High (10/10/22) ? Vital Signs?? Temperature: 98 DegF (10/11/22 08:53:00) Temperature Route: Oral (10/11/22 08:53:00) Pulse Rate: 57 bpm (10/11/22 08:53:00) Respiratory Rate: 16 br/min (10/11/22 08:53:00) Systolic Blood Pressure: 137 mm Hg (10/11/22 08:53:00) Diastolic Blood Pressure:??90 mm Hg??High (10/11/22 08:53:00) Blood pressure sites: Arm, left (10/11/22 08:53:00) Mean Arterial Pressure: 106 mm Hg (10/11/22 08:53:00) Pulse Pressure: 47 mm Hg (10/11/22 08:53:00) Oxygen Saturation:??93 %??Low (10/11/22 10:00:00) Liters per Minute: 1 L/min (10/11/22 08:53:00) Mode of Delivery (Oxygen): Room air (10/11/22 10:00:00) Early Warning Score: 5 (10/11/22 10:09:56) ? Mobility & Ambulation Level Mobility & Ambulation Level Ambulatory devices needed: None (10/09/22) ?? . Physical Exam General:??Alert, in no acute cardiopulmonary distress. Mental Status:??Oriented to person, place and time. Normal affect. Head:??Normocephalic. Eyes:??Pupils are equal, round and reactive to light. Extraocular muscles intact. Ear, Nose and Throat:??Oropharynx clear, mucous membranes moist. Ears and nose without masses, lesions or deformities. Trachea midline. Neck:??Supple, Full range of motion. Respiratory:??Clear to auscultation and percussion. No wheezing, rales or rhonchi. Cardiovascular:??Heart sounds normal. No thrills. Regular rate and rhythm, no murmurs, rubs or gallops. ??Lower extremity without edema bilaterally. Gastrointestinal:??Abdomen soft, non-tender, non-distended. Normal bowel sounds. No pulsatile mass.No hepatosplenomegaly. Genitourinary:??No costovertebral angle tenderness. Neurologic:??Cranial nerves II-XII grossly intact. No focal neurological deficits.??Moves all extremities spontaneously. Sensation intact bilaterally. Skin:??No rashes or lesions. No petechiae or purpura. No edema. Musculoskeletal:??No cyanosis or clubbing. No gross deformities. Normal range of motion. Pending Results Add On Lab Order ordered on 10/09/2022 Blood Culture ordered on 10/09/2022 Blood Culture #2 ordered on 10/09/2022 Sputum Culture w/ Gram Smear ordered on 10/10/2022 Follow-Up Appointments Added Follow Up ?Time Frame ?Comments Layla LANDRUM, Bety Pino?1 ?? Weeks Patient Instructions You are hospitalized for??RSV and bronchitis. ??You have 3 more days of prednisone??to complete your treatment and 2 more days of azithromycin.?? Use albuterol as needed for wheezing or cough.?Please follow-up with your PCP in 1 week.?? For fever, chills, worsening shortness of breath, chest pain,??or any other concerns please seek immediate medical care. Post Discharge Care Discharge ?10/11/22 13:28:00 EST Discharge Prescriptions ?ePrescribed, ??10/11/22 13:28:00 EST Home Health Face to Face ^HomeHealthFTF Results Discharge Labs BLOOD COUNT & DIFF WBC 3.7 k/mm3 (Low)?? 10/11/2022 07:33 RBC 3.71 m/mm3 (Low)?? 10/11/2022 07:33 Hgb 12.3 Gm/dL (Low)?? 10/11/2022 07:33 Hct 35.8 % (Low)?? 10/11/2022 07:33 MCV 96.5 femtoliters (High)?? 10/11/2022 07:33 MCH 33.2 pg ()?? 10/11/2022 07:33 MCHC 34.4 g/dL ()?? 10/11/2022 07:33 Platelet Count 160 k/mm3 ()?? 10/11/2022 07:33 RDW-SD 47.3 femtoliters (High)?? 10/11/2022 07:33 MPV 8.7 femtoliters (Low)?? 10/11/2022 07:33 Nucleated RBC (Automated) 0.0 #/100 WBC'S ()?? 10/11/2022 07:33 Abs. NRBC 0.0 k/mm3 ()?? 10/11/2022 07:33 Abs. Neut 2.5 k/mm3 ()?? 10/11/2022 07:33 Abs. Lymph 0.8 k/mm3 ()?? 10/11/2022 07:33 Abs. [place] 0.3 k/mm3 (Low)?? 10/11/2022 07:33 Abs. Eo 0.0 k/mm3 ()?? 10/11/2022 07:33 Abs. Baso 0.0 k/mm3 ()?? 10/11/2022 07:33 Neut % 66.9 % ()?? 10/11/2022 07:33 Lymph % 22.8 % ()?? 10/11/2022 07:33 [place] % 8.9 % ()?? 10/11/2022 07:33 Eos % 0.3 % ()?? 10/11/2022 07:33 Baso % 0.3 % ()?? 10/11/2022 07:33 Imm Gran 0.8 % ()?? 10/11/2022 07:33 Abs. Imm Gran 0.0 k/mm3 ()?? 10/11/2022 07:33 ?? BLOOD GAS CO % (Carboxyhemoglobin) 1 % ()?? 10/09/2022 17:20 ? CHEM GENERAL Sodium 142 mmol/L ()?? 10/11/2022 07:33 Potassium 3.8 mmol/L ()?? 10/11/2022 07:33 Chloride 106 mmol/L ()?? 10/11/2022 07:33 Bicarbonate Level 29 mmol/L ()?? 10/11/2022 07:33 Anion Gap 7 ()?? 10/11/2022 07:33 Glucose Level 169 mg/dL (High)?? 10/09/2022 16:32 BUN 12 mg/dL ()?? 10/10/2022 06:17 Creatinine-Blood 0.7 mg/dL ()?? 10/11/2022 07:33 Estimated GFR Creatinine 103 ML/MIN/1.73 M2 ()?? 10/11/2022 07:33 Calcium 8.1 mg/dL (Low)?? 10/10/2022 06:17 Phosphorus 3.7 mg/dL ()?? 10/10/2022 06:17 Magnesium 2.2 mg/dL ()?? 10/11/2022 07:33 Protein, Total 6.7 Gm/dL ()?? 10/09/2022 16:32 Albumin 4.5 Gm/dL ()?? 10/09/2022 16:32 AG Ratio 2.0 ()?? 10/09/2022 16:32 Alkaline Phosphatase 39 units/L (Low)?? 10/11/2022 07:33 AST (SGOT) 36 units/L ()?? 10/11/2022 07:33 ALT (SGPT) 40 units/L ()?? 10/11/2022 07:33 Bilirubin, Total 0.3 mg/dL ()?? 10/11/2022 07:33 Bilirubin, Direct 0.1 mg/dL ()?? 10/11/2022 07:33 Bilirubin, Indirect 0.2 mg/dL ()?? 10/11/2022 07:33 Lactate 1.2 mmol/L ()?? 10/10/2022 06:17 ?? COAG INR 0.9 ()?? 10/09/2022 16:32 Protime (PT) 9.8 seconds ()?? 10/09/2022 16:32 APTT 23.3 seconds (Low)?? 10/09/2022 16:32 D-Dimer 1.53 mg/L FEU (High)?? 10/09/2022 17:20 ?? MISC. CHEMISTRY Hold Green Top SPECIMEN DISCARDED AFTER 1 WEEK ()?? 10/09/2022 20:07 Procalcitonin 0.08 ng/mL ()?? 10/10/2022 06:17 Hold Gel Top SPECIMEN DISCARDED AFTER 1 WEEK ()?? 10/09/2022 17:20 ? TOXICOLOGY/TDM Ethanol, Serum or Plasma 265 mg/dL (Abnormal)?? 10/09/2022 16:32 ? UA/URINALYSIS Appear/Color, Urine YELLOW ()?? 10/10/2022 12:47 Clarity CLEAR (N)?? 10/10/2022 12:47 Specific [place], Urine 1.020 ()?? 10/10/2022 12:47 pH, Urine 7.5 ()?? 10/10/2022 12:47 Albumin, Urine NEGATIVE (N)?? 10/10/2022 12:47 Glucose, Urine NEGATIVE (N)?? 10/10/2022 12:47 Ketones, Urine NEGATIVE (N)?? 10/10/2022 12:47 Bilirubin, Urine NEGATIVE (N)?? 10/10/2022 12:47 Hemoglobin, Urine NEGATIVE (N)?? 10/10/2022 12:47 Nitrite, Urine NEGATIVE (N)?? 10/10/2022 12:47 Leukocyte, Urine NEGATIVE (N)?? 10/10/2022 12:47 Urobilinogen NORMAL mg/dL (N)?? 10/10/2022 12:47 Hold Urine Culture Testing available 48 hours from time of collection. ()?? 10/10/2022 12:47 ? VIROLOGY Influenza A PCR NEGATIVE ()?? 10/09/2022 15:53 Influenza B PCR NEGATIVE ()?? 10/09/2022 15:53 RSV PCR POSITIVE (Abnormal)?? 10/09/2022 15:53 COVID-19 PCR Specimen Source NASAL ()?? 10/10/2022 13:35 COVID-19 PCR Result NEGATIVE ()?? 10/10/2022 13:35 ? Microbiology ?? COVID-19, RSV, and Flu A/B, Rapid PCR?? Completed?? Source: Nasal Body Site: Nose Collected Dt/Tm: 10/09/2022 15:53 Last Updated Dt/Tm: 10/09/2022 17:15 COVID-19 (2019 Novel Coronavirus) PCR?? Completed?? Source: Nasal Body Site: Nose Collected Dt/Tm: 10/10/2022 13:35 Last Updated Dt/Tm: 10/11/2022 01:09 ? Imaging(s) ?CT Angio Chest ?? 10/09/2022 17:55??by Tommie CANO, Michael Valentino ?IMPRESSION: ?? 1. Severely limited study due to diffuse respiratory motion and poor timing of the contrast bolus. No central pulmonary embolism is identified, with very limited evaluation of the lobar, segmental, and subsegmental vessels. 2. Similar mildly enlarged main pulmonary artery and right heart. 3. Hepatic steatosis. ?Chest Portable ?? 10/09/2022 16:57??by Braden Castro MD ?IMPRESSION: ?? No acute abnormality. ? Microbiology(s) ?RSV PCR ?? 10/09/2022 15:53 ?RSV TARGET RNA IS DETECTED. ?COVID-19 PCR Result ?? 10/09/2022 15:53 ?2019-novel Coronavirus (2019-nCoV) not detected by real-time RT-PCR. ? 40??minutes spent on discharge * Angel Luis WYATT, [place]: PERFORM Event Display: Patient Education/Instruction Authored Date: [id number] Inpatient [place] [address] Name: NÉSTOR VINCENT : 1960 Visit: 10/09/2022 20:09:00 Current Date: 10/11/2022 14:08 Account: [id number] Inpatient Adult Discharge Instructions We would like to thank you for allowing us to assist you with your healthcare needs. The following includes patient education materials and information regarding your injury/illness. Our entire staffstrives to provide an excellent experience for our patients and their families. PLEASE ENSURE YOU FOLLOW-UP PER THE INSTRUCTIONS BELOW! ?? YOUR OPINION IS IMPORTANT TO US! Please complete the survey you may receive by mail or email. Your feedback will be used to make improvements to the healthcare experiences of our patients and their families. Surveys are administered by [employer] ?? If further treatment with your primary care physician or another doctor is recommended, it is important for you to keep the appointment. Call your primary care physician or return to the Emergency Department immediately if your condition worsens, fails to improve, or new symptoms develop. If you need to find a doctor, you can call [facility] for a referral at [phone] or toll free at [phone]) or log in to [email or web address] ?? You can view and manage your care through the patient portal or by using a health care ruslan of your choosing. [facility] is a website that allows you to securely view your medical information including your hospital discharge summary, office visit summaries, medications and follow-up visits. You can also request appointments, renew medications, and request access to your medical information using a health care ruslan of your choosing, or just ask a question. You can enroll at [email or web address] or register during your next office visit. You have been discharged from [facility], Patient Care Unit: [id number]. If you have any questions regarding these instructions after you leave, please call us and we will be happy to assist you. [facility] Your Care Team Attending Physician Sharmila Ortez MD Discharging Providers Sharmila Ortez MD Reason for Admission etoh, drank bottle vodka today; course cough, ALEJANDRINA. EMS started oxygen 6 L via nc d/t 94% RA. upper airway wheezing Your Diagnosis Alcohol intoxication SIRS without infection or organ dysfunction RSV bronchitis Hypoxia Lactate blood increase Metabolic acidosis Hypomagnesemia Tests Performed Below is a partial list of the tests performed during your hospitalization. You may have had other tests and procedures not included in this list. Please discuss all test results with your provider. Alcohol Level Alk Phos ALT AST Bilirubin Total + Direct BUN Calcium Level Carbon Monoxide CBC CBC w/ Differential Comprehensive Metabolic Panel COVID-19 (2019 Novel Coronavirus) PCR COVID-19, RSV, and Flu A/B, Rapid PCR Creatinine D Dimer Electrolytes HOLD GEL TUBE HOLD GREEN TUBE INR Lactate Level Lactic Acid Level Lytes Magnesium Level Phosphorus Level Procalcitonin Level PTT Urinalysis w/hold for Urine Culture CT Angio Chest XR Chest Portable Primary Care Provider Layla LANDRUM, Bety Pino Advance Directive Health Care Proxy on File Yes - Health Care Proxy No qualifying data available. Discharge Vitals Temperature: 98 DegF Height: 175 cm Pulse Rate: 57 bpm Weight: 83.5 kg Respiratory Rate: 16 br/min Body Mass Index:??27.27 kg/m2??High Systolic Blood Pressure: 137 mm Hg Body surface area: 2.01 Diastolic Blood Pressure:??90 mm Hg??High ?? Oxygen Saturation:??93 %??Low ?? Studies Pending All tests and labs ordered during this hospital stay have been completed unless listed below. Please discuss all pending results with your provider listed above in these instructions. ?? Add On Lab Order Blood Culture Blood Culture #2 Sputum Culture w/ Gram Smear What to do next Instructions From Your Doctor You are hospitalized for??RSV and bronchitis. ??You have 3 more days of prednisone??to complete your treatment and 2 more days of azithromycin.?? Use albuterol as needed for wheezing or cough.?Please follow-up with your PCP in 1 week.?? For fever, chills, worsening shortness of breath, chest pain,??or any other concerns please seek immediate medical care. Discharge Orders Scheduled Follow-Up Appointments Monday 12:40 PM EST ?? With: Alfredito CORNEJO, Gen Andino Where: [address] [address]- You Need to Schedule the Following Appointments Follow Up with??Bety Rich NP When??In 1 week Where: [address] [place] [id number]- Discharge Medications NÉSTOR VINCENT :1960 Visit Date:10/09/2022 Medications: Please continue your medications until treatment is completed or stopped by your provider. Medications not listed below should be discontinued. Discuss any questions related to medications with your provider. What How Much When Instructions Next Dose New Albuterol (albuterol CFC free 90 mcg/ inh inhalation aerosol) 2 puff(s) Oral Every 4 hours as needed for Wheezing/Shortness of Breath Pickup at [facility] as needed New Azithromycin (azithromycin 500 mg oral tablet) 500 Milligram Oral Daily Duration: 2 Days Pickup at [facility] 10/12 2 pm New PredniSONE (predniSONE 20 mg oral tablet) 2 tab(s) Oral Daily Duration: 3 Days Pickup at [facility] 10/12 AM Changed apixaban (apixaban 5 mg oral tablet) 1 tab(s) Oral Twice a day Duration: 60 Days 10/11 PM Unchanged Atorvastatin (atorvastatin 40 mg oral tablet) 1 tab(s) Oral Daily at Bedtime 10/11 PM Unchanged Docusate (docusate sodium 100 mg oral capsule) 1 capsule Oral Twice a day 10/11 PM Unchanged Escitalopram (escitalopram 10 mg oral tablet) 1 tab(s) Oral Daily 10/12 AM Unchanged Meloxicam (meloxicam 7.5 mg oral tablet) 1 tab(s) Oral Daily 10/12 AM Unchanged Multivitamin 1 tab(s) Oral Daily 10/12 AM Unchanged Naltrexone (naltrexone 50 mg oral tablet) 1 tab(s) Oral Daily 10/12 AM Unchanged Trazodone (traZODone 50 mg oral tablet) 1 tab(s) Oral Daily at Bedtime 10/11 PM Unchanged turmeric (Turmeric) 1 capsule Oral Daily 10/12 AM Pharmacy Information [facility]: [id number] [facility] [address] [place], [place] [id number] [phone] Test Results Below is a partial list of the most recent Laboratory test results done prior to this discharge. You may have had other tests and procedures not included in this list. Please discuss all test resultswith your provider. Alcohol Level (10/09/2022) ???Ethanol, Serum or Plasma - 265 mg/dL Alk Phos (10/11/2022) ???Alkaline Phosphatase - 39 units/L ALT (10/11/2022) ???ALT (SGPT) - 40 units/L AST (10/11/2022) ???AST (SGOT) - 36 units/L Bilirubin Total + Direct (10/11/2022) ???Bilirubin, Total - 0.3 mg/dL???Bilirubin, Direct - 0.1 mg/dL???Bilirubin, Indirect - 0.2 mg/dL BUN (10/10/2022) ???BUN - 12 mg/dL Calcium Level (10/10/2022) ???Calcium - 8.1 mg/dL Carbon Monoxide (10/09/2022) ???CO % (Carboxyhemoglobin) - 1 % CBC (10/10/2022) ???WBC - 4.8 k/mm3???RBC - 3.74 m/mm3???Hgb - 12.2 Gm/dL???Hct - 34.8 %???MCV - 93.0 femtoliters???MCH - 32.6 pg???MCHC - 35.1 g/dL???Platelet Count - 174 k/mm3???RDW-SD - 43.8 femtoliters???MPV - 8.4 femtoliters???Nucleated RBC (Automated) - 0.0 #/100 WBC'S???Abs. NRBC - 0.0 k/mm3 CBC w/ Differential (10/11/2022) ???WBC - 3.7 k/mm3???RBC - 3.71 m/mm3???Hgb - 12.3 Gm/dL???Hct - 35.8 %???MCV - 96.5 femtoliters???MCH - 33.2 pg???MCHC - 34.4 g/dL???Platelet Count - 160 k/mm3???RDW-SD - 47.3 femtoliters???MPV - 8.7 femtoliters???Nucleated RBC (Automated) - 0.0 #/100 WBC'S???Abs. NRBC - 0.0 k/mm3???Abs. Neut - 2.5 k/mm3???Abs. Lymph - 0.8 k/mm3???Abs. [place] - 0.3 k/mm3???Abs. Eo - 0.0 k/mm3???Abs. Baso - 0.0 k/mm3???Neut % - 66.9 %???Lymph % - 22.8 %???[place] % - 8.9 %???Eos % - 0.3 %???Baso % - 0.3 %???Imm Gran- 0.8 %???Abs. Imm Gran - 0.0 k/mm3 Comprehensive Metabolic Panel (10/09/2022) ???Sodium - 141 mmol/L???Potassium - 3.4 mmol/L???Chloride - 97 mmol/L???Bicarbonate Level - 25 mmol/L???Anion Gap - 19???Glucose Level - 169 mg/dL???BUN - 19 mg/dL???Creatinine-Blood - 0.8 mg/dL???Estimated GFR Creatinine - 97 ML/MIN/1.73 M2???Calcium - 9.3 mg/dL???Protein, Total - 6.7 Gm/dL???Albumin - 4.5 Gm/dL???AG Ratio - 2.0???Alkaline Phosphatase - 61 units/L???AST (SGOT) - 47 units/L???ALT (SGPT) - 55 units/L???Bilirubin, Total - 0.4 mg/dL COVID-19 (2019 Novel Coronavirus) PCR (10/10/2022) ???COVID-19 PCR Specimen Source - NASAL???COVID-19 PCR Result - NEGATIVE COVID-19, RSV, and Flu A/B, Rapid PCR (10/09/2022) ???Influenza A PCR - NEGATIVE???Influenza B PCR - NEGATIVE???RSV PCR - POSITIVE???COVID-19 PCR Specimen Source - NASAL???COVID-19 PCR Result - NEGATIVE Creatinine (10/11/2022) ???Creatinine-Blood - 0.7 mg/dL???Estimated GFR Creatinine - 103 ML/MIN/1.73 M2 D Dimer (10/09/2022) ???D-Dimer - 1.53 mg/L FEU Electrolytes (10/11/2022) ???Sodium - 142 mmol/L???Potassium - 3.8 mmol/L???Chloride - 106 mmol/L???Bicarbonate Level - 29 mmol/L???Anion Gap - 7 HOLD GEL TUBE (10/09/2022) ???Hold Gel Top - SPECIMEN DISCARDED AFTER 1 WEEK HOLD GREEN TUBE (10/09/2022) ???Hold Green Top - SPECIMEN DISCARDED AFTER 1 WEEK INR (10/09/2022) ???INR - 0.9???Protime (PT) - 9.8 seconds Lactate Level (10/10/2022) ???Lactate - 1.2 mmol/L Lactic Acid Level (10/09/2022) ???Lactate - 4.4 mmol/L Lytes (10/10/2022) ???Sodium - 141 mmol/L???Potassium - 4.0 mmol/L???Chloride - 102 mmol/L???Bicarbonate Level - 29 mmol/L???Anion Gap - 10 Magnesium Level (10/11/2022) ???Magnesium - 2.2 mg/dL Phosphorus Level (10/10/2022) ???Phosphorus - 3.7 mg/dL Procalcitonin Level (10/10/2022) ???Procalcitonin - 0.08 ng/mL PTT (10/09/2022) ???APTT - 23.3 seconds Urinalysis w/hold for Urine Culture (10/10/2022) ???Appear/Color, Urine - YELLOW???Clarity - CLEAR???Specific [place], Urine - 1.020???pH, Urine - 7.5???Albumin, Urine - NEGATIVE???Glucose, Urine - NEGATIVE???Ketones, Urine - NEGATIVE???Bilirubin, Urine - NEGATIVE???Hemoglobin, Urine - NEGATIVE???Nitrite, Urine - NEGATIVE???Leukocyte, Urine - NEGA TIVE???Urobilinogen - NORMAL???Hold Urine Culture - Testing available 48 hours from time of collection. Allergies (NKA means No Known Allergies) Pollen Problems No qualifying data available Education Materials Below is the list of Educational Leaflet Providered with your Discharge Instructions. Valuables and Belongings I fully understand and agree that [facility] accepts no responsibility for all my personal property including clothing, toilet articles, radios, jewelry, dentures, hearing aids, rings, money, or any other property that is in my possession or is brought to me after admission. I understand certain valuables may be placed in a hospital safe for a short period of time. I understand that the hospital is not liable for loss or damage due to accident, fire, or other natural occurrence while said property is in the safe. I accept full responsibility for any personal property that I keep with me, and will not hold the hospital responsible in case of loss or disappearance. I acknowledge that i have been encouraged to send valuables and belongings home. ?? Date for Pt to Sign Valuables/Belongings: 10/10/22 12:08:00 ?? Other Discharge Information ? Pulmonary Rehab Status?? Pulmonary Rehab Discharge Status?? Respiratory Rate: 16 br/min ? Common Emergency Awareness Tips IS IT A STROKE? Act FAST and Check for these signs: FACE Does the face look uneven? ARM Does one arm drift down? SPEECH Does their speech sound strange? TIME Call at any sign of stroke ?? Heart Attack Signs Chest discomfort: Most heart attacks involve discomfort in the center of the chest and lasts more than a few minutes, or goes away and comes back. It can feel like uncomfortable pressure, squeezing, fullness or pain. Discomfort in upper body: Symptoms can include pain or discomfort in one or both arms, back, neck, jaw or stomach. Shortness of breath: With or without discomfort. Other signs: Breaking out in a cold sweat, nausea, or lightheaded. Remember, MINUTES DO MATTER. If you experience any of these heart attack warning signs, call to get immediate medical attention! ?? Smoking can increase your chances of developing chronic health problems and can cause harmful effects to other family members in your house. If you smoke, you are strongly encouraged to quit. Please call [facility] at [phone] or 1-896-[employer]23[employer] ([phone]) or log in to [email or web address] for referrals to smoking cessation programs. ?? The National Suicide Prevention Hotline is available 05/06 if you or someone you know needs to find a reason to keep living. By calling 4-757-755-RightsFlow (3816) you'll be connected to a skilled, trained counselor at a crisis center in your area. INPATIENT DISCHARGE INSTRUCTIONS SIGNATURE NÉSTOR BRAUN Location:[facility] Registration Date and Time:10/09/2022 20:09 EST Primary Care Physician: Layla LANDRUM, Bety Pino, Helena VINCENT NÉSTOR, have received the above patient education materials/instructions and have verbalized understanding. If ambulance or transport services are being used I further acknowledge being given a choice of service. ?? If you need to contact me, please call me at this number: . Patient/Stock Mixer Name: Patient/Stock Mixer Signature: Relationship to Patient: Witness Name/Signature: Date: Portable XR Chest Views * [facility] , CIS S: TRANSCRIBE Braden Castro MD: VERIFY Event Display: Result: Authored Date: [id number] Chest Portable Hx of Present Illness: Worsening cough and SOB x5 days. Dx with PE 2 months ago, stopped taking Apixiban.; Reason: Shortness of Breath; Clinical Question(s): CHF COMPARISON: 08/23/2022 FINDINGS: LINES AND TUBES: None. LUNGS AND PLEURA: Low lung volumes. No definite consolidation or overt pulmonary edema. No pleural effusion. No pneumothorax. HEART, MEDIASTINUM AND GAIL: Heart is normal in size. Normal mediastinal and hilar contour. BONES AND SOFT TISSUES: No acute abnormality. IMPRESSION: No acute abnormality. WSN: [id number] Ordering Physician: Misael Titus Dictated By: Braden Castro MD Dictated Date/Time: 10/09/22 4:58 pm Reviewed By: Braden Castro MD Signed By: Braden Castro MD Signed Date/Time: 10/09/22 4:58 pm Transcribed By: GARLAND Transcribed Date/Time: 10/09/22 4:57 pm CTA Chest vessels W contrast IV * [facility] , CIS S: TRANSCMichael Chin MD J: Jayro Beltran MD: SIGN Event Display: Result: Authored Date: EXAMINATION: CT Angio Chest INDICATION: Hx of Present Illness: Worsening cough and SOB x5 days. Dx with PE 2 months ago, stopped taking apixaban.; Reason: Other:; PE suspected, Intermediate prob, positive D-dimer,; Clinical Question(s): Pulmonary Embolism TECHNIQUE: Spiral CTA of the chest was performed after rapid IV contrast administration without cardiac gating, triggered by an MICHEAL on the main pulmonary artery. Images are formatted in multiple planes using 2-D multiplanar and 3-D maximum intensity projection. 100 cc of Omnipaque 300 was administered intravenously. Weight-based protocol using automatic tube modulation was used to optimize exposure parameters. CTDIvol Body: 8.80 mGy, DLP Body: 374 mGy*cm. COMPARISONS: None. ANGIOGRAPHIC FINDINGS: Evaluation is severely limited by motion artifact and poor contrast opacification with no convincing central pulmonary embolism and nondiagnostic evaluation of the lobar, segmental and subsegmental levels. The main pulmonary artery is enlarged measuring up to 3.4 cm. Mild right heart enlargement and flattening of the interventricular septum is similar to the prior study. No reflux of IV contrast into the IVC. No acute aortic abnormality seen on this study performed without cardiac gating. NON-ANGIOGRAPHIC FINDINGS: Roller Varnisher View Findings, Lines and Tubes: None. Trachea and Airways: Patent without evidence of tracheal or endobronchial lesion. Lungs and Pleura: Motion degraded evaluation without large consolidation or other acute abnormality. Small pulmonary nodules may be obscured. No effusion or pneumothorax. Mediastinum and gail: No mass or hematoma. No mediastinal or hilar lymphadenopathy. No esophageal abnormality. Heart: Heart is at the upper limits of normal for size. No pericardial effusion. Chest Wall Soft Tissues: Normal. Diaphragm and upper abdomen: Diffuse hypoattenuation of the imaged portions of the liver compatiblewith hepatic steatosis. Bones: No acute abnormality. IMPRESSION: 1. Severely limited study due to diffuse respiratory motion and poor timing of the contrast bolus. No central pulmonary embolism is identified, with very limited evaluation of the lobar, segmental, and subsegmental vessels. 2. Similar mildly enlarged main pulmonary artery and right heart. 3. Hepatic steatosis. I have personally reviewed the images and I agree with this report. WSN: [id number] Ordering Physician: Misael Titus Dictated By: Jayro Monsalve MD Dictated Date/Time: 10/09/22 7:11 pm Reviewed By: Michael Reilly MD Signed By: Michael Reilly MD Signed Date/Time: 10/09/22 7:16 pm Transcribed By: GARLAND Transcribed Date/Time: 10/09/22 6:18 pm Patient Care team information Care Team Personnel Name: Cherry Mora Position: [facility] Outreach Member Role: Lifetime Consulting Physician Name: Bety Rich NP Position: [facility] Outreach Member Role: PCP Address: Address: [address] [place] [address] Name: Shaista Thurston RN Position: [facility] RN Member Role: Primary Care Nurse Name: Facundo Sosa RN Position: [facility] RN Member Role: Primary Care Nurse Name: Sidney Garcia RN Position: [facility] RN Member Role: Primary Care Nurse Name: Mary White RN Position: S RN Member Role: Primary Care Nurse Name: Dominique Velázquez RN Position: [facility] RN Member Role: Primary Care Nurse Name: Coby Rodriguez RN Position: [facility] RN Member Role: Primary Care Nurse Name: Eloina Campa RN Position: [facility] RN Member Role: Primary Care Nurse Name: Fermín ZAVALA Attending Position: [facility] ED Medicine Name: Elias Becker RN Position: [facility] ED RN W/OE and Tasks Care Team Related Persons Name: TRAVIS HUGGINS Address: home [address] [place] [address] Name: RONEN VINCENT Address: home [address] [place] [address]
--- OUTSIDE RECORDS SUMMARY | 2024-07-23 16:25 | XMS_ITS | Continuity of Care Document ---
Author Organization [facility] Address Unknown Care Team Providers Care Nurse Substance Abuse Name Role Phone Layla LANDRUM, Bety Pino Primary Care Physician [phone] [place] [facility] [place] 11[place]11[place] [facility] Attending Physician: Isac Fung Admitting Physician: Isac Fung Referring Physician: AdmtrIsac Allergies, Adverse Reactions, Alerts [...] Maintenance,09/09/21 9:49:00 EDT, Route to Pharmacy Electronically, [facility] #[id number], Partial fill upon patient request if the prescription is for a ken... Start Date: 09/09/21 Status: Ordered meloxicam 5 mg oral capsule 1 capsule = 5 mg, By Mouth, Daily, # 30 capsule, 0 Refills, Maintenance, 02/11/20 14:17:00 EDT, Capsule, [facility] #[id number], 176, cm, 02/11/20 14:13:00 EDT, Height, 82, [...] 0 Refills, Maintenance, 09/09/21 9:51:00 EDT, Gum, [facility] #[id number], Partial fill upon patient request if the prescription is for a schedule II opioid drug., 170, cm, 09/09... Start Date: 09/09/21 Status: Ordered traZODone 50 mg oral tablet 50 mg, 1, tablet, By Mouth, Daily at bedtime, # 3 capsule, Refills 0, Tot. Refills 0, Maintenance, 02/11/20 14:17:00 EDT, Route to Pharmacy Electronically, [facility] #[id number], 176, cm, 02/11/20 14:13:00 EDT, Height, 82, kg, 02/11/20 14:13:00... Start Date: 02/11/20 Status: Ordered Social History Social History Type Response Smoking Status Current every day sm oker; Other: chewing tobacco; entered on: 11/28/16 Sex
--- OUTSIDE RECORDS SUMMARY | 2024-07-23 16:25 | XMS_ITS | Continuity of Care Document ---
Author Organization [facility] Address [address] [place] [address]- Care Team Providers Care Bridge Attacher Name Role Phone Layla LANDRUM, Bety Brewster Primary Care Physician [place] [facility] [place] 02/28/24 - 06/02/24 [facility] [address] [place] [address] Attending Physician: Gallo Martinez MD, Lizandro Pino Admitting Physician: Gallo Martinez MD, Lizandro Pino Referring Physician: Winston Philip MD Allergies, Adverse Reactions, Alerts Substance Reaction [...] 13:17:00 EST, Inhaler, Route to Pharmacy Electronically, [id number], [facility], 175, cm, 10/11/22 8:53:00 ES... Start Date: 10/11/22 Status: Ordered apixaban 5 mg oral tablet 1 tablet = 5 mg, By Mouth, 2 times a day, # 120 tablet, 0 Refills, Maintenance, 08/24/22 20:36:00 EDT, Tablet, [facility], Partial fill upon patient request [...] 08/24/22 20:37:00 EDT, Route to Pharmacy Electronically, [facility], Partial fill uponpatient request [...] 02/11/20 14:17:00 EDT, Route to Pharmacy Electronically, [facility] #[id number], 176, cm, 02/11/20 14:13:00 EDT, Height, 82, [...] Care Team Personnel Name: Cherry Mora Position: [facility] Outreach Member Role: Lifetime Consulting Physician Name: Bety Rich NP Position: S Outreach Member Role: PCP Address: Address: [address] [place] [address] Name: Shaista Thurston RN Position: S RN Member Role: Primary Care Nurse Name: Facundo Sosa RN Position: S RN Member Role: Primary Care Nurse Name: Mary White RN Position: [facility] SN RN Member Role: Primary Care Nurse Name: Dominique Velázquez RN Position: S RN Member Role: Primary Care Nurse Name: Coby Rodriguez RN Position: S RN Member Role: Primary Care Nurse Name: Eloina Campa RN Position: [facility] RN Member Role: Primary Care Nurse Care Team Related Persons Name: TRAVIS HUGGINS Address: home [address] [place] [address] Name: RONEN VINCENT Address: home [address] [place] [address]
--- OUTSIDE RECORDS SUMMARY | 2024-07-23 16:25 | XMS_ITS | Continuity of Care Document ---
Author Organization [facility] Address [address] [place] [address]- Care Team Providers Care Jewelry Internship Name Role Phone Layla LANDRUM, Bety Pino Primary Care Physician [place] [facility] [place] - 10/12/[address] [address]- Discharge Disposition: A-D/C Home Attending Physician: Avinash [...] Maintenance,09/09/21 9:49:00 EDT, Route to Pharmacy Electronically, [facility] #[id number], Partial fill upon patient request if the prescription is for a ken... Start Date: 09/09/21 Status: Ordered meloxicam 5 mg oral capsule 1 capsule = 5 mg, By Mouth, Daily, # 30 capsule, 0 Refills, Maintenance, 02/11/20 14:17:00 EDT, Capsule, [facility] #[id number], 176, cm, 02/11/20 14:13:00 EDT, Height, 82, [...] 0 Refills, Maintenance, 09/09/21 9:51:00 EDT, Gum, [facility] #[id number], Partial fill upon patient request if the prescription is for a schedule II opioid drug., 170, cm, 09/09... Start Date: 09/09/21 Status: Ordered traZODone 50 mg oral tablet 50 mg, 1, tablet, By Mouth, Daily at bedtime, # 3 capsule, Refills 0, Tot. Refills 0, Maintenance, 02/11/20 14:17:00 EDT, Route to Pharmacy Electronically, [facility] #[id number], 176, cm, 02/11/20 14:13:00 EDT, Height, 82, kg, 02/11/20 14:13:00... Start Date: 02/11/20 Status: Ordered Vital Signs Most recent to oldest [Reference Range]: 1 Height 173 cm (10/12/21 9:25 AM) Weight 82 kg (10/12/21 9:25 AM) Oxygen Saturation [94-100 %] 93 % *L* (10/12/21 9:25 AM) Pulse Rate [55-90 bpm] 77 bpm (10/12/21 9:25 AM) Blood Pressure [90-138/55-84 mm Hg] 102/ 71mm Hg (10/12/21 9:25 AM) Respiratory Rate [16-30 br/min] 16 br/mi n (10/12/21 9:25 AM) Temperature [96.8-100.4 DegF] 97.1 DegF (10/12/21 9:25 AM) Mode of Delivery (Oxygen) Room air (10/12/21 9:25 AM) Blood pressure sites Arm, right (10/12/21 9:25 AM) Temperature Route Oral (10/12/21 9:25 AM) Dry Weight 82 kg (10/12/21 9:25 AM) Social History Social History Type Response Smoking Status Current every day carlos pearl; Other: chewing tobacco; entered on: 11/28/16 Sex
--- OUTSIDE RECORDS SUMMARY | 2024-07-23 16:25 | XMS_ITS | Continuity of Care Document ---
Author Organization [facility] Address [address] [place] [address]- Care Team Providers Care Waitress Name Role Phone Layla LANDRUM, Bety E Primary Care Physician [place] [facility] [place](s): 08/31/21 - 09/09/21 [facility] [address] [place] [address]- Discharge Disposition: A-D/C Home Attending Physician: Quang Vee MD Admitting Physician: Quang Vee MD Referring Physician: Not on Staff, Referring [...] Maintenance,09/09/21 9:49:00 EDT, Route to Pharmacy Electronically, [facility] #[id number], Partial fill upon patient request if the prescription is for a ken... Start Date: 09/09/21 Status: Ordered gabapentin 300 mg oral capsule 600 mg, Capsule, By Mouth, 09/09/21 9:00:00 EDT Start Date: 09/09/21 Stop Date: 09/09/21 Status: Completed meloxicam 5 mg oral capsule 1 capsule = 5 mg, By Mouth, Daily, # 30 capsule, 0 Refills, Maintenance, 02/11/20 14:17:00 EDT, Capsule, [facility] #[id number], 176, cm, 02/11/20 14:13:00 EDT, Height, 82, kg, 02/11/20 14:13:00EDT, Dry Weight Start Date: 02/11/20 Status: Ordered naltrexone 50 mg oral tablet 1 tablet = 50 mg, By Mouth, Daily, 0 Refills, Maintenance, 08/31/21 10:35:00 EDT, Partial fill uponpatient request if the prescription is for a schedule II opioid drug. Start Date: 08/31/21 Status: Ordered naproxen 250 mg oral tablet 250 mg, Tablet, By Mouth, 09/09/21 9:00:00 EDT Start Date: 09/09/21 Stop Date: 09/09/21 Status: Completed Nicotine 2 mg gum = 2 mg, Chew, Every hour, PRN Other, Nicotine Cravings, # 160 each, 0 Refills, Maintenance, 09/09/21 9:51:00 EDT, Gum, [facility] #[id number], Partial fill upon patient request if the prescription is for a schedule II opioid drug., 170, cm, 09/09... Start Date: 09/09/21 Status: Ordered traZODone 50 mg oral tablet 50 mg, 1, tablet, By Mouth, Daily at bedtime, # 3 capsule, Refills 0, Tot. Refills 0, Maintenance, 02/11/20 14:17:00 EDT, Route to Pharmacy Electronically, [facility] #[id number], 176, cm, 02/11/20 14:13:00 EDT, Height, 82, kg, 02/11/20 14:13:00... Start Date: 02/11/20 Status: Ordered Vital Signs Most recent to oldest [Reference Range]: 1 2 3 Height 170 cm (09/09/21 8:15 AM) 170 cm (09/08/21 8:03 AM) 170 cm (09/07/21 8:10 AM) Weight 82.2 kg (09/07/21 11:46 AM) 80.1 kg (08/31/21 1:03 PM) 81 kg (08/31/21 8:55 AM) Oxygen Saturation [94-100 %] 97 % (09/09/21 8:15 AM) 97 % (09/08/21 8:03 AM) 95 % (09/07/21 8:10 AM) Pulse Rate [55-90 bpm] 78 bpm (09/09/21 8:15 AM) 75 bpm (09/08/21 8:03 AM) 75 bpm (09/07/21 8:10 AM) Body Mass Index [18.5-24.99] 27.72 *H* (08/31/21 1:03 PM) 28.03 *H* (08/31/21 8:55 AM) 28.03 *H* (08/30/21 9:37 PM) Blood Pressure [90-138/55-84 mm Hg] 111/84mm Hg (09/09/21 8:15 AM) 126/85mm Hg (09/08/21 8:03 AM) 120/82mm Hg (09/07/21 8:10 AM) Respiratory Rate [16-30 br/min] 16 br/min (09/09/21 1:20 PM) 16 br/min (09/09/21 1:20 PM) 16 br/min (09/09/21 12:57 PM) Temperature [96.8-100.4 DegF] 97.1 DegF (09/09/21 8:15 AM) 97.3 DegF (09/08/21 8:03 AM) 96.9 DegF (09/07/21 8:10 AM) Mode of Delivery (Oxygen) Room air (09/09/21 8:15 AM) Room air (09/08/21 8:03 AM) Room air (09/07/21 8:10 AM) Blood pressure sites Arm, left (09/07/21 8:10 AM) Arm, right (09/06/21 9:35 PM) Arm, left (09/05/21 5:14 PM) Temperature Route Temporal (09/09/21 8:15 AM) Temporal (09/08/21 8:03 AM) Temporal (09/07/21 8:10 AM) Dry Weight 80.1 kg (08/31/21 1:03 PM) 95 kg (08/31/21 8:55 AM) 95 kg (08/30/21 9:37 PM) Weight Obtained Via Standing scale (09/07/21 11:46 AM) Sensory deficits Hearing deficit L, Hearing deficit R (08/31/21 1:03 PM) Social History Social History Type Response Smoking Status Current every day carlos pearl; Other: chewing tobacco; entered on: 11/28/16 Sex
--- OUTSIDE RECORDS SUMMARY | 2024-07-23 16:25 | XMS_ITS | Continuity of Care Document ---
Author Organization [facility] Address [address] [place] [address]- Care Team Providers Care Emt I/99 Name Role Phone Layla LANDRUM, Bety Pino Primary Care Physician [phone] Encounter [facility] Date(s): 10/17/22 - [facility]16/[facility] [address] [place] [address]- Attending Physician: Isac Fung Admitting Physician: AdmtrIsac Referring Physician: Admtr, ArAlfredito Allergies, Adverse Reactions, Alerts Substance Reaction Severity [...] 13:17:00 EST, Inhaler, Route to Pharmacy Electronically, [id number], [facility] #[facility], 175, cm, 10/11/22 8:53:00 ES... Start Date: 10/11/22 Status: Ordered apixaban 5 mg oral tablet 1 tablet = 5 mg, By Mouth, 2 times a day, # 120 tablet, 0 Refills, Maintenance, 08/24/22 20:36:00 EDT, Tablet, [facility], Partial fill upon patient request [...] 08/24/22 20:37:00 EDT, Route to Pharmacy Electronically, [facility], Partial fill uponpatient request if [...] 02/11/20 14:17:00 EDT, Route to Pharmacy Electronically, [facility] #[id number], 176, cm, 02/11/20 14:13:00 EDT, Height, 82, [...] Care Team Personnel Name: Cherry Mora Position: [facility] Outreach Member Role: Lifetime Consulting Physician Name: Bety Rich NP Position: [facility] Outreach Member Role: PCP Address: Address: [address] [place] [address] Name: Shaista Thurston RN Position: [facility] RN Member Role: Primary Care Nurse Name: Facundo Sosa RN Position: S RN Member Role: Primary Care Nurse Name: Sidney Garcia RN Position: S RN Member Role: Primary Care Nurse Name: Mary White RN Position: S RN Member Role: Primary Care Nurse Name: Dominique Velázquez RN Position: S RN Member Role: Primary Care Nurse Name: Coby Rodriguez RN Position: S RN Member Role: Primary Care Nurse Name: Eloina Campa RN Position: S RN Member Role: Primary Care Nurse Care Team Related Persons Name: BHAVNATRAVIS Address: home [address] [place] [address] Name: RONEN VINCENT Address: home [address] [place] [address]
--- OUTSIDE RECORDS SUMMARY | 2024-07-23 16:25 | XMS_ITS | Continuity of Care Document ---
Author Organization [facility] Address [address] [place] [address]- Care Team Providers Care Sanitation Worker Name Role Phone Gen Jeronimo Primary Care Physician [phone] [place] [facility] [place] Date(s): 01/08/20 - 01/09/[address] [address]- [facility] [phone] Discharge Disposition: A-D/C Home Attending Physician: Avinash [...] Maintenance, 09/10/17 14:11:52, Route to Pharmacy Electronically, [id number], [facility] [address] Start Date: 09/10/17 Stop Date: 10/10/17 Status: [...] Maintenance, 02/21/17 11:03:20, Route to Pharmacy Electronically, [id number], [facility] [address] Start Date: 02/21/17 Status: Ordered Nicorette Fruit [...] oldest [Reference Range]: 1 2 3 Height 172.7 cm (01/09/20 6:47 AM) 172.7 cm (01/09/20 3:23 AM) 172.7 cm (01/08/20 10:25 PM) Weight 81.8 kg (01/09/20 6:47 AM) 81.8 kg (01/09/20 3:23 AM) 81.8 kg (01/08/20 5:40 PM) Oxygen Saturation [94-100 %] 95 % (01/09/20 6:47 AM) 93 % *L* (01/09/20 3:23 AM) 92 % *L* (01/08/20 10:25 PM) Pulse Rate [55-90 bpm] 108 bpm *H* (01/09/20 6:47 AM) 102 bpm *H* (01/09/20 3:23 AM) 90 bpm (01/08/20 10:25 PM) Body Mass Index [18.5-24.99] 27.43 *H* (01/09/20 6:47 AM) 27.43 *H* (01/09/20 3:23 AM) 27.43 *H* (01/08/20 5:37 PM) Blood Pressure [90-138/55-84 mm Hg] 112/75mm Hg (01/09/20 6:47 AM) 117/77mm Hg (01/09/20 3:23 AM) 116/67mm Hg (01/08/20 10:25 PM) Respiratory Rate [16-30 br/min] 18 br/min (01/09/20 6:47 AM) 18 br/min (01/09/20 5:03 AM) 18 br/min (01/09/20 3:23 AM) Temperature [96.8-100.4 DegF] 99.4 DegF (01/09/20 6:47 AM) 99.1 DegF (01/09/20 3:23 AM) 98.5 DegF (01/08/20 10:25 PM) Mode of Delivery (Oxygen) Room air (01/09/20 6:47 AM) Room air (01/09/20 5:03 AM) Room air (01/09/20 3:23 AM) Blood pressure sites Arm, left (01/09/20 6:47 AM) Arm, left (01/09/20 3:23 AM) Arm, right (01/08/20 10:25 PM) Temperature Route Oral (01/09/20 6:47 AM) Oral (01/09/20 3:23 AM) Oral (01/08/20 10:25 PM) Dry Weight 81.8 kg (01/09/20 6:47 AM) 81.8 kg (01/09/20 3:23 AM) 81.8 kg (01/08/20 5:40 PM) Weight Obtained Via Patient/family state d (01/08/20 5:37 PM) Dry Weight Obtained Via Patient/family s tated (01/08/20 5:37 PM) Social History Social History Type Response Smoking Status Current every day sm ryanne; Other: chewing tobacco; entered on: 11/28/16 Sex
--- OUTSIDE RECORDS SUMMARY | 2024-07-23 16:25 | XMS_ITS | Continuity of Care Document ---
Author Organization [facility] Address [address] [place] [address]- Care Team Providers Care Equine Manager Name Role Phone Layla LANDRUM, Bety Brewster Primary Care Physician Encounter [facility] [place] Date(s): 01/25/24 - 03/01/24 [facility] [address] [place] [address]- Attending Physician: Not on Staff, Attending MD Referring Physician: Layla LANDRUM, Bety Brewster Allergies, [...] 13:17:00 EST, Inhaler, Route to Pharmacy Electronically, [id number], [facility], 175, cm, 10/11/22 8:53:00 ES... Start Date: 10/11/22 Status: Ordered apixaban 5 mg oral tablet 1 tablet = 5 mg, By Mouth, 2 times a day, # 120 tablet, 0 Refills, Maintenance, 08/24/22 20:36:00 EDT, Tablet, [facility], Partial fill upon patient request [...] 20:37:00 EDT, Route to Pharmacy Electronically, [facility], Partial fill uponpatient request if [...] 02/11/20 14:17:00 EDT, Route to Pharmacy Electronically, [facility] #[id number], 176, cm, 02/11/20 14:13:00 EDT, Height, 82, [...] Consulting Physician Name: Bety Rich NP Position: [facility] Outreach Member Role: PCP Address: Address: [address] [place] [id number] Name: Shaista Thurston RN Position: [facility] RN Member Role: Primary Care Nurse Name: Facundo Sosa RN Position: S RN Member Role: Primary Care Nurse Name: Mary White RN Position: S RN Member Role: Primary Care Nurse Name: Dominique Velázquez RN Position: S RN Member Role: Primary Care Nurse Name: Coby Rordiguez RN Position: S RN Member Role: Primary Care Nurse Name: Eloina Campa RN Position: S RN Member Role: Primary Care Nurse Care Team Related Persons Name: TRAVIS HUGGINS Address: [address] [place] [address] Name: RONEN VINCENT Address: home [address] [place] [address]
--- OUTSIDE RECORDS SUMMARY | 2024-07-23 16:25 | XMS_ITS | Continuity of Care Document ---
Author Organization [facility]il[facility] Address [address] [place] [address]- Care Team Providers Care Referral Coordinator Name Role Phone Layla LANDRUM, Bety Brewster Primary Care Physician [place] [facility] 09[place]/23 [facility] [address] [place] [address]- Attending Physician: Admtr, Isac Admitting Physician: Admtr, [...] 13:17:00 EST, Inhaler, Route to Pharmacy Electronically, [id number], [facility], 175, cm, 10/11/22 8:53:00 ES... Start Date: 10/11/22 Status: Ordered apixaban 5 mg oral tablet 1 tablet = 5 mg, By Mouth, 2 times a day, # 120 tablet, 0 Refills, Maintenance, 08/24/22 20:36:00 EDT, Tablet, [facility], Partial fill upon patient [...] 08/24/22 20:37:00 EDT, Route to Pharmacy Electronically, [facility], Partial fill uponpatient request [...] 02/11/20 14:17:00 EDT, Route to Pharmacy Electronically, [facility] #[id number], 176, cm, 02/11/20 14:13:00 EDT, Height, 82, [...] Consulting Physician Name: Bety Rich NP Position: [facility] Outreach Member Role: PCP Address: Address: [address] [place] [address] Name: Shaista Thurston RN Position: S RN [...] Persons Name: TRAVIS HUGGINS Address: home [address] [place] [address] Name: RONEN VINCENT Address: home [address] [place] [address]
--- OUTSIDE RECORDS SUMMARY | 2024-07-23 16:25 | XMS_ITS | Continuity of Care Document ---
Author Organization [facility] Address [address] [place] [address]- Care Team Providers Care Wallpaper Consultant Name Role Phone Bety Rich MD Primary Care Physician [phone] [facility] [place] Date(s): 11/24/20 - 12/24/20 [facility] [address] [place] [address]- Attending Physician: Isac Fung Admitting Physician: AdmIsac [...] Maintenance, 09/10/17 14:11:52, Route to Pharmacy Electronically, [id number], [id number] Start Date: 09/10/17 Stop Date: 10/10/17 Status: [...] Maintenance, 02/21/17 11:03:20, Route to Pharmacy Electronically, [id number], [id number] Start Date: 02/21/17 Status: Ordered meloxicam 5 mg oral capsule 1 capsule = 5 mg, By Mouth, Daily, # 30 capsule, 0 Refills, Maintenance, 02/11/20 14:17:00 EDT, Capsule, [facility] #[id number], 176, cm, 02/11/20 14:13:00 EDT, Height, 82, kg, 02/11/20 14:13:00EDT, Dry Weight Start Date: 02/11/20 Status: Ordered Thiamine Daily, Refills 0, Maintenance, 05/25/20 15:50:00 EDT Start Date: 05/25/20 Status: Ordered traZODone 50 mg oral tablet 50 mg, 1, tablet, By Mouth, Daily at bedtime, # 3 capsule, Refills 0, Tot. Refills 0, Maintenance, 02/11/20 14:17:00 EDT, Route to Pharmacy Electronically, [facility] #[id number], 176, cm, 02/11/20 14:13:00 EDT, Height, 82, kg, 02/11/20 14:13:00... Start Date: 02/11/20 Status: Ordered Social History Social History Type Response Smoking Status Current every day sm oker; Other: chewing tobacco; entered on: 11/28/16 Sex
--- OUTSIDE RECORDS SUMMARY | 2024-07-23 16:25 | XMS_ITS | Continuity of Care Document ---
Author Organization [facility] Address [address] [place] [address]- Care Team Providers Care Event Marketing Coordinator Name Role Phone Layla LANDRUM, Bety Pino Primary Care Physician Encounter [facility] [place] Date(s): 10/23/21 - 10/24/[address] [address]- Discharge Disposition: A-D/C Home Attending Physician: Saida [...] Maintenance,09/09/21 9:49:00 EDT, Route to Pharmacy Electronically, [facility] #[id number], Partial fill upon patient request if the prescription is for a ken... Start Date: 09/09/21 Status: Ordered gabapentin 300 mg oral capsule 600 mg, Capsule, By Mouth, 10/24/21 9:00:00 EST Start Date: 10/24/21 Stop Date: 10/24/21 Status: Completed meloxicam 5 mg oral capsule 1 capsule = 5 mg, By Mouth, Daily, # 30 capsule, 0 Refills, Maintenance, 02/11/20 14:17:00 EDT, Capsule, [facility] #[id number], 176, cm, 02/11/20 14:13:00 EDT, Height, 82, [...] 0 Refills, Maintenance, 09/09/21 9:51:00 EDT, [facility]um, [facility] #[id number], Partial fill upon patient request if the prescription is for a schedule II opioid drug., 170, cm, 09/09... Start Date: 09/09/21 Status: Ordered traZODone 50 mg oral tablet 50 mg, 1, tablet, By Mouth, Daily at bedtime, # 3 capsule, Refills 0, Tot. Refills 0, Maintenance, 02/11/20 14:17:00 EDT, Route to Pharmacy Electronically, [facility] #[id number], 176, cm, 02/11/20 14:13:00 EDT, Height, 82, kg, 02/11/20 14:13:00... Start Date: 02/11/20 Status: Ordered Vital Signs Most recent to oldest [Reference Range]: 1 2 3 Height 175 cm (10/23/21 3:50 PM) Weight 83 kg (10/23/21 3:50 PM) Oxygen Saturation [94-100 %] 95 % (10/24/21 9:09 AM) 96 % (10/24/21 6:00 AM) 93 % *L* (10/24/21 2:59 AM) Pulse Rate [55-90 bpm] 93 bpm *H* (10/24/21 9:09 AM) 65 bpm (10/24/21 6:00 AM) 72 bpm (10/24/21 2:59 AM) Blood Pressure [90-138/55-84 mm Hg] 145/91mm Hg *H* (10/24/21 9:09 AM) 124/81mm Hg (10/24/21 6:00 AM) 108/63mm Hg (10/23/21 10:40 PM) Respiratory Rate [16-30 br/min] 16 br/min (10/24/21 9:09 AM) 18 br/min (10/24/21 8:23 AM) 18 br/min (10/24/21 6:00 AM) Temperature [96.8-100.4 DegF] 97.8 DegF (10/24/21 9:09 AM) 96.8 DegF (10/24/21 6:00 AM) 97.9 DegF (10/23/21 10:40 PM) Mode of Delivery (Oxygen) Room air (10/24/21 9:09 AM) Room air (10/24/21 6:00 AM) Room air (10/24/21 2:59 AM) Blood pressure sites Arm, left (10/24/21 9:09 AM) Arm, left (10/24/21 6:00 AM) Arm, left (10/23/21 10:40 PM) Temperature Route Oral (10/24/21 9:09 AM) Oral (10/24/21 6:00 AM) Oral (10/23/21 10:40 PM) Dry Weight 83 kg (10/23/21 3:50 PM) Weight Obtained Via Patient/family state d (10/23/21 3:50 PM) Social History Social History Type Response Smoking Status Current every day sm oker; Other: chewing tobacco; entered on: 11/28/16 Sex
--- OUTSIDE RECORDS SUMMARY | 2024-07-23 16:25 | XMS_ITS | Continuity of Care Document ---
Author Organization [facility] habilitation Address [address] [place] [address]- Care Team Providers Care Digester Capper Name Role Phone Layla LANDRUM, Bety Pino Primary Care Physician [phone] Encounter [facility] [place] Date(s): 09/01/22 - 10/01/[address] [address]- Attending Physician: AdmIsac hadley Admitting Physician: Admtr, [id number] Referring Physician: Admtr, Ar8 Allergies, Adverse Reactions, [...] 0 Refills, Maintenance, 08/24/22 20:36:00 EDT, Tablet, [facility], Partial fill upon patient request if the prescription is for aschedule II opioid drug., 175, cm, 08/24/22 16:30:0... Start Date: 08/24/22 Stop Date: 08/30/22 Status: Ordered apixaban 5 mg oral tablet 1 tablet = 5 mg, By Mouth, 2 times a day, # 120 tablet, 0 Refills, Maintenance, 08/24/22 20:36:00 EDT, Tablet, [facility], Partial fill upon patient request if [...] 08/24/22 20:37:00 EDT, Route to Pharmacy Electronically, [facility], Partial fill uponpatient request if the [...] 02/11/20 14:17:00 EDT, Route to Pharmacy Electronically, [facility] #[id number], 176, cm, 02/11/20 14:13:00 EDT, Height, 82, [...] Care Team Personnel Name: Cherry Mora Position: [facility] Outreach Member Role: Lifetime Consulting Physician Name: Bety Rich NP Position: [facility] Outreach Member Role: PCP Address: Address: [address] [place] [address] Name: Shaista Thurston RN Position: S RN [...] Team Related Persons Name: TRAVIS HUGGINS Address: [place] [address] Name: RONEN VINCENT Address: home [address] [place] [address]
--- OUTSIDE RECORDS SUMMARY | 2024-07-23 16:25 | XMS_ITS | Continuity of Care Document ---
Author Organization [facility] Address [address] [place] [address]- Care Team Providers Care Intensive Care Anaesthetist Name Role Phone Layla LANDRUM, Bety Pino Primary Care Physician [phone] [place] [facility] [place]17/[place] - 09/18/[address] [address]- Discharge Disposition: A-D/C Home Attending Physician: Misael [...] Maintenance,09/09/21 9:49:00 EDT, Route to Pharmacy Electronically, [facility] #[id number], Partial fill upon patient request if the prescription is for a ken... Start Date: 09/09/21 Status: Ordered meloxicam 5 mg oral capsule 1 capsule = 5 mg, By Mouth, Daily, # 30 capsule, 0 Refills, Maintenance, 02/11/20 14:17:00 EDT, Capsule, [facility] #[id number], 176, cm, 02/11/20 14:13:00 EDT, Height, 82, [...] 0 Refills, Maintenance, 09/09/21 9:51:00 EDT, [facility], [facility] #[id number], Partial fill upon patient request if the prescription is for a schedule II opioid drug., 170, cm, 09/09... Start Date: 09/09/21 Status: Ordered traZODone 50 mg oral tablet 50 mg, 1, tablet, By Mouth, Daily at bedtime, # 3 capsule, Refills 0, Tot. Refills 0, Maintenance, 02/11/20 14:17:00 EDT, Route to Pharmacy Electronically, [facility] #[id number], 176, cm, 02/11/20 14:13:00 EDT, Height, 82, kg, 02/11/20 14:13:00... Start Date: 02/11/20 Status: Ordered Vital Signs Most recent to oldest [Reference Range]: 1 2 Height 173 cm (09/17/21 4:15 PM) Weight 82 kg (09/17/21 4:15 PM) Oxygen Saturation [94-100 %] 98 % (09/18/21 11:41 AM) 95 % (09/17/21 4:15 PM) Pulse Rate [55-90 bpm] 64 bpm (09/18/21 11:41 AM) 75 bpm (09/17/21 4:15 PM) Blood Pressure [90-138/55-84 mm Hg] 136/ 83mm Hg (09/18/21 11:41 AM) 107/67mm Hg (09/17/21 4:15 PM) Respiratory Rate [16-30 br/min] 18 br/mi n (09/18/21 11:41 AM) 16 br/min (09/17/21 4:15 PM) Temperature [96.8-100.4 DegF] 98.5 DegF (09/18/21 11:41 AM) 97.4 DegF (09/17/21 4:15 PM) Mode of Delivery (Oxygen) Room air (09/18/21 11:41 AM) Room air (09/17/21 4:15 PM) Temperature Route Oral (09/18/21 11:41 AM) Oral (09/17/21 4:15 PM) Dry Weight 82 kg (09/17/21 4:15 PM) Social History Social History Type Response Smoking Status Current every day carlos pearl; Other: chewing tobacco; entered on: 11/28/16 Sex
--- OUTSIDE RECORDS SUMMARY | 2024-07-23 16:26 | XMS_ITS | Continuity of Care Document ---
Author Organization [facility] habilitation Address [address] [place] [address]- Care Team Providers Care Customer Success Representative Name Role Phone Layla LANDRUM, Bety Pino Primary Care Physician Encounter [facility] [place] Date(s): 03/11/22 - 04/10/[address] [address]- Attending Physician: Isac Fung Admitting Physician: AdmIsac [...] 02/06/22 15:14:00 EDT, Route to Pharmacy Electronically, [facility], Partial fill uponpatient request [...] opioid drug. Start Date: 02/02/22 Status: Ordered traZODone 50 mg oral tablet 50 mg, 1, tablet, By Mouth, Daily at bedtime, # 3 capsule, Refills 0, Tot. Refills 0, Maintenance, 02/11/20 14:17:00 EDT, Route to Pharmacy Electronically, [facility] #[id number], 176, cm, 02/11/20 14:13:00 EDT, Height, 82, [...]
--- OUTSIDE RECORDS SUMMARY | 2024-07-23 16:26 | XMS_ITS | Continuity of Care Document ---
Author Organization [facility] Address [address] [place] [address]- Care Team Providers Care Professor Of Law Name Role Phone Layla LANDRUM, Bety Pino Primary Care Physician Encounter [facility] Date(s): 09/12/22 - 11/16/22 [facility] [address] [place] [address]- [place] Encounter Diagnosis Encounter to establish care(Discharge Diagnosis) - 10/17/22 Alcohol dependence(Discharge Diagnosis) - 10/17/22 Gout 274.9(Discharge Diagnosis) - 10/17/22 Major depressive disorder, recurrent episode, moderate(Discharge Diagnosis) - 10/17/22 Left leg DVT(Discharge Diagnosis) - 10/17/22 Small bowel obstruction(Discharge Diagnosis) - 10/17/22 Attending Physician: Gen Harding Allergies, Adverse Reactions, Alerts Substance Reaction Severity [...] 13:17:00 EST, Inhaler, Route to Pharmacy Electronically, [id number], [facility], 175, cm, 10/11/22 8:53:00 ES... Start Date: 10/11/22 Status: Ordered apixaban 5 mg oral tablet 1 tablet = 5 mg, By Mouth, 2 times a day, # 120 tablet, 0 Refills, Maintenance, 08/24/22 20:36:00 EDT, Tablet, [facility], Partial fill upon patient [...] 08/24/22 20:37:00 EDT, Route to Pharmacy Electronically, [facility], Partial fill uponpatient request [...] 02/11/20 14:17:00 EDT, Route to Pharmacy Electronically, [facility] #[id number], 176, cm, 02/11/20 14:13:00 EDT, Height, 82, kg, 02/11/20 14:13:00... Start Date: 02/11/20 Status: Ordered Turmeric 1 capsule, By Mouth, Daily, Maintenance, 02/02/22 15:31:00 EDT, Partial fill upon patient request if the prescription is for a schedule II opioid drug. Start Date: 02/02/22 Status: Ordered Problem List Diagnosis Diagnosis Type Effective Dates Health Status Clinical Service Informant Encounter to establish care Discharge Diagnosis 10/17/22 Alcohol dependence Discharge Diagnosis 10/17/22 Gout 274.9 Discharge Diagnosis 10/17/22 Major depressive disorder, recurrent episode, moderate Discharge Diagnosis 10/17/22 Left leg DVT Discharge Diagnosis 10/17/22 Small bowel obstruction Discharge Diagnosis 10/17/22 Social History Social History Type Response Smoking Status Current every day sm oker; Other: chewing tobacco; entered on: 11/28/16 Sex Patient Care team information Care Team Personnel Name: Cherry Mora Position: [facility] Outreach Member Role: Lifetime Consulting Physician Name: Bety Rich NP Position: [facility] Outreach Member Role: PCP Address: Address: [address] [place] [id number] Name: Shaista Thurston RN Position: S RN [...] Persons Name: TRAVIS HUGGINS Address: home [address] [place] [address] Name: RONEN VINCENT Address: home [address] [place] [address]
--- OUTSIDE RECORDS SUMMARY | 2024-07-23 16:26 | XMS_ITS | Continuity of Care Document ---
Author Organization [facility] Address Unknown Care Team Providers Care Bending Shed Worker Name Role Phone Layla LANDRUM, Bety Pino Primary Care Physician Encounter [facility] [place] Date(s): 08/13/21 - 11/11/21 [facility] Attending Physician: Smiley Barahona MD Admitting Physician: Smiley Barahona MD Referring Physician: Bety Rich NP Allergies, Adverse Reactions, Alerts Substance Reaction Severity [...] Maintenance,09/09/21 9:49:00 EDT, Route to Pharmacy Electronically, [facility] #[id number], Partial fill upon patient request if the prescription is for a ken... Start Date: 09/09/21 Status: Ordered meloxicam 5 mg oral capsule 1 capsule = 5 mg, By Mouth, Daily, # 30 capsule, 0 Refills, Maintenance, 02/11/20 14:17:00 EDT, Capsule, [facility] #[id number], 176, cm, 02/11/20 14:13:00 EDT, Height, 82, [...] 0 Refills, Maintenance, 09/09/21 9:51:00 EDT, Gum, [facility] #[id number], Partial fill upon patient request if the prescription is for a schedule II opioid drug., 170, cm, 09/09... Start Date: 09/09/21 Status: Ordered traZODone 50 mg oral tablet 50 mg, 1, tablet, By Mouth, Daily at bedtime, # 3 capsule, Refills 0, Tot. Refills 0, Maintenance, 02/11/20 14:17:00 EDT, Route to Pharmacy Electronically, [facility] #[id number], 176, cm, 02/11/20 14:13:00 EDT, Height, 82, kg, 02/11/20 14:13:00... Start Date: 02/11/20 Status: Ordered Social History Social History Type Response Smoking Status Current every day sm oker; Other: chewing tobacco; entered on: 11/28/16 Sex
--- OUTSIDE RECORDS SUMMARY | 2024-07-23 16:26 | XMS_ITS | Continuity of Care Document ---
Author Organization [facility] Address [address] [place] [address]- Care Team Providers Care Supervisor Stitching Department Name Role Phone Layla LANDRUM, Bety Pino Primary Care Physician Encounter [facility] [place] Date(s): 10/22/21 - 10/22/[address] [address]- Encounter Diagnosis Alcohol intoxication(Final) - 10/22/21 Discharge Disposition: A-D/C Home Attending Physician: Michael [...] Maintenance,09/09/21 9:49:00 EDT, Route to Pharmacy Electronically, [facility] #[id number], Partial fill upon patient request if the prescription is for a ken... Start Date: 09/09/21 Status: Ordered meloxicam 5 mg oral capsule 1 capsule = 5 mg, By Mouth, Daily, # 30 capsule, 0 Refills, Maintenance, 02/11/20 14:17:00 EDT, Capsule, [facility] #[id number], 176, cm, 02/11/20 14:13:00 EDT, Height, 82, [...] 0 Refills, Maintenance, 09/09/21 9:51:00 EDT, Gum, [facility] #[id number], Partial fill upon patient request if the prescription is for a schedule II opioid drug., 170, cm, 09/09... Start Date: 09/09/21 Status: Ordered traZODone 50 mg oral tablet 50 mg, 1, tablet, By Mouth, Daily at bedtime, # 3 capsule, Refills 0, Tot. Refills 0, Maintenance, 02/11/20 14:17:00 EDT, Route to Pharmacy Electronically, [facility] #[id number], 176, cm, 02/11/20 14:13:00 EDT, Height, 82, kg, 02/11/20 14:13:00... Start Date: 02/11/20 Status: Ordered Vital Signs Most recent to oldest [Reference Range]: 1 2 Height 175 cm (10/22/21 3:29 PM) 175 cm (10/22/21 3:26 PM) Weight 85 kg (10/22/21 3:29 PM) 85 kg (10/22/21 3:26 PM) Oxygen Saturation [94-100 %] 96 % (10/22/21 3:26 PM) Pulse Rate [55-90 bpm] 93 bpm *H* (10/22/21 3:26 PM) Body Mass Index [18.5-24.99] 27.76 *H* (10/22/21 3:26 PM) Blood Pressure [90-138/55-84 mm Hg] 140/ 92mm Hg *H* (10/22/21 3:26 PM) Respiratory Rate [16-30 br/min] 18 br/mi n (10/22/21 3:26 PM) Temperature [96.8-100.4 DegF] 98.2 DegF (10/22/21 3:26 PM) Mode of Delivery (Oxygen) Room air (10/22/21 3:26 PM) Blood pressure sites Arm, left (10/22/21 3:26 PM) Temperature Route Oral (10/22/21 3:26 PM) Dry Weight 85 kg (10/22/21 3:29 PM) 85 kg (10/22/21 3:26 PM) Social History Social History Type Response Smoking Status Current every day carlos pearl; Other: chewing tobacco; entered on: 11/28/16 Sex
--- OUTSIDE RECORDS SUMMARY | 2024-07-23 16:26 | XMS_ITS | Continuity of Care Document ---
Author Organization [facility] Address [address] [place] [address]- Care Team Providers Care Cook Mess Name Role Phone Layla LANDRUM, Bety Brewster Primary Care Physician Encounter [facility] [place](s): 07/05/24 - 07/12/24 [facility] [address] [place] [id number]- [place] Encounter Diagnosis Colon cancer screening(Discharge Diagnosis) - 07/05/24 Attending Physician: Edward CANO, Oj Bill Referring Physician: Winston Philip MD Allergies, Adverse [...] Wade rded influenza virus vaccine, inactivated 10/18/12 Awde rded tetanus/diphtheria/pertussis, acel(Tdap) 03/11/22 Recorded SARS-CoV-2 (COVID-19) [...] 13:17:00 EST, Inhaler, Route to Pharmacy Electronically, [id number], [facility], 175, cm, 10/11/22 8:53:00 ES... Start Date: 10/11/22 Status: Ordered apixaban 5 mg oral tablet 1 tablet = 5 mg, By Mouth, 2 times a day, # 120 tablet, 0 Refills, Maintenance, 08/24/22 20:36:00 EDT, Tablet, [facility], Partial fill upon patient request if the prescription is for aschedule II opioid drug., 08/30/22, 175, , ... Start Date: 08/24/22 Stop Date: 10/23/22 [...] 08/24/22 20:37:00 EDT, Route to Pharmacy Electronically, [facility], Partial fill uponpatient request [...] opioid drug. Start Date: 08/31/21 Status: Ordered PEG-3350 with Electrolytes Lemon (Eqv-NuLYTELY) oral powder for reconstitution See Instructions, follow instructions provided by the office, # 240 mL, 0 Refills, Maintenance, 07/05/24 13:12:00 EDT, REC Powder, [facility][id number], Partial fill upon patient request if the prescription is for a schedule II opioid drug., follow inst... Start Date: 07/05/24 Status: Ordered traZODone 50 mg oral tablet 50 mg, 1, tablet, By Mouth, Daily at bedtime, # 3 capsule, Refills 0, Tot. Refills 0, Maintenance, 02/11/20 14:17:00 EDT, Route to Pharmacy Electronically, [facility] #[id number], 176, cm, 02/11/20 14:13:00 EDT, Height, 82, [...] Hypercholesterolemia Confirmed Active Pulmonary nodules Confirmed Active Diagnosis Diagnosis Type Effective Dates Health Status Cl [facility] Service Informant Colon cancer screening Discharge Diagnosis 07/05/24 Social History Social History Type Response Smoking [...] CENTER Outreach Member Role: PCP Address: Address: [address] [place] [address]- Name: Shaista Thurston RN Position: S RN Member Role: Primary Care Nurse Name: Facundo Sosa RN Position: S RN Member Role: Primary Care Nurse Name: Mary White RN Position: [facility] SN RN Member Role: Primary Care Nurse Name: Dominique Velázquez RN Position: S RN Member Role: Primary Care Nurse Name: Coby Rodriguez RN Position: S RN Member Role: Primary Care Nurse Name: Eloina Campa RN Position: S RN Member Role: Primary Care Nurse Care Team Related Persons Name: TRAVIS HUGGINS Address: home [address] [place] [address] Name: RONEN VINCENT Address: home [address] [place] [address]
--- OUTSIDE RECORDS SUMMARY | 2024-07-23 16:26 | XMS_ITS | Continuity of Care Document ---
Author Organization [facility] Address [address] [place] [address]- Care Team Providers Care Uniform Room Attendant Name Role Phone Bety Rich MD Primary Care Physician Encounter [facility] [place] Date(s): 07/23/21 - 07/24/[address] [address]- Discharge Disposition: A-D/C Home Attending Physician: Sydnee Pelletier MD Admitting Physician: Sydnee Pelletier MD Referring Physician: Not on Staff, Referring [...] Maintenance, 09/10/17 14:11:52, Route to Pharmacy Electronically, [id number], [facility] [id number] Start Date: 09/10/17 Stop Date: 10/10/17 Status: [...] Maintenance, 02/21/17 11:03:20, Route to Pharmacy Electronically, [id number], [facility] [id number] Start Date: 02/21/17 Status: Ordered meloxicam 5 mg oral capsule 1 capsule = 5 mg, By Mouth, Daily, # 30 capsule, 0 Refills, Maintenance, 02/11/20 14:17:00 EDT, Capsule, [facility] #[id number], 176, cm, 02/11/20 14:13:00 EDT, Height, 82, kg, 02/11/20 14:13:00EDT, Dry Weight Start Date: 02/11/20 Status: Ordered Thiamine Daily, Refills 0, Maintenance, 05/25/20 15:50:00 EDT Start Date: 05/25/20 Status: Ordered traZODone 50 mg oral tablet 50 mg, 1, tablet, By Mouth, Daily at bedtime, # 3 capsule, Refills 0, Tot. Refills 0, Maintenance, 02/11/20 14:17:00 EDT, Route to Pharmacy Electronically, [facility] #[id number], 176, cm, 02/11/20 14:13:00 EDT, Height, 82, kg, 02/11/20 14:13:00... Start Date: 02/11/20 Status: Ordered Vital Signs Most recent to oldest [Reference Range]: 1 2 3 Height 175 cm (07/23/21 5:57 PM) 175 cm (07/23/21 4:22 PM) Weight 81.9 kg (07/23/21 5:57 PM) Oxygen Saturation [94-100 %] 100 % (07/24/21 9:11 AM) 93 % *L* (07/23/21 5:57 PM) 91 % *L* (07/23/21 4:22 PM) Pulse Rate [55-90 bpm] 96 bpm *H* (07/24/21 9:11 AM) 99 bpm *H* (07/23/21 5:57 PM) 99 bpm *H* (07/23/21 4:22 PM) Blood Pressure [90-138/55-84 mm Hg] 138/85mm Hg (07/24/21 9:11 AM) 134/88mm Hg (07/23/21 5:57 PM) 137/91mm Hg (07/23/21 4:22 PM) Respiratory Rate [16-30 br/min] 16 br/min (07/24/21 9:11 AM) 16 br/min (07/23/21 5:57 PM) 14 br/min *L* (07/23/21 4:22 PM) Temperature [96.8-100.4 DegF] 97.2 DegF (07/24/21 9:11 AM) 98.5 DegF (07/23/21 5:57 PM) 98.5 DegF (07/23/21 4:22 PM) Mode of Delivery (Oxygen) Room air (07/24/21 9:11 AM) Room air (07/23/21 4:22 PM) Blood pressure sites Arm, right (07/23/21 4:22 PM) Temperature Route Oral (07/24/21 9:11 AM) Oral (07/23/21 4:22 PM) Dry Weight 81.9 kg (07/23/21 5:57 PM) 81.9 kg (07/23/21 4:22 PM) Social History Social History Type Response Smoking Status Current every day sm ryanne; Other: chewing tobacco; entered on: 11/28/16 Sex
--- OUTSIDE RECORDS SUMMARY | 2024-07-23 16:26 | XMS_ITS | Continuity of Care Document ---
Author Organization [facility] Address [address] [place] [address]- Care Team Providers Care Hat Band Attacher Name Role Phone Bety Rich MD Primary Care Physician [phone] Encounter [facility] [place] Date(s): 07/22/21 - 07/22/[address] [address]- Discharge Disposition: A-D/C Home Attending Physician: Edd [...] Maintenance, 09/10/17 14:11:52, Route to Pharmacy Electronically, [id number], [facility] [id number] Start Date: 09/10/17 Stop Date: 10/10/17 Status: [...] Maintenance, 02/21/17 11:03:20, Route to Pharmacy Electronically, [id number], [facility] [id number] Start Date: 02/21/17 Status: Ordered meloxicam 5 mg oral capsule 1 capsule = 5 mg, By Mouth, Daily, # 30 capsule, 0 Refills, Maintenance, 02/11/20 14:17:00 EDT, Capsule, [facility] #[id number], 176, cm, 02/11/20 14:13:00 EDT, Height, 82, kg, 02/11/20 14:13:00EDT, Dry Weight Start Date: 02/11/20 Status: Ordered Thiamine Daily, Refills 0, Maintenance, 05/25/20 15:50:00 EDT Start Date: 05/25/20 Status: Ordered traZODone 50 mg oral tablet 50 mg, 1, tablet, By Mouth, Daily at bedtime, # 3 capsule, Refills 0, Tot. Refills 0, Maintenance, 02/11/20 14:17:00 EDT, Route to Pharmacy Electronically, [facility] #[id number], 176, cm, 02/11/20 14:13:00 EDT, Height, 82, kg, 02/11/20 14:13:00... Start Date: 02/11/20 Status: Ordered Vital Signs Most recent to oldest [Reference Range]: 1 2 3 Height 175 cm (07/22/21 12:45 PM) 175 cm (07/22/21 11:51 AM) Weight 82 kg (07/22/21 12:45 PM) 82 kg (07/22/21 11:51 AM) Oxygen Saturation [94-100 %] 94 % (07/22/21 6:00 PM) 94 % (07/22/21 12:45 PM) 94 % (07/22/21 12:30 PM) Pulse Rate [55-90 bpm] 117 bpm *H* (07/22/21 6:00 PM) 100 bpm *H* (07/22/21 12:45 PM) 88 bpm (07/22/21 12:30 PM) Body Mass Index [18.5-24.99] 26.78 *H* (07/22/21 12:45 PM) Blood Pressure [90-138/55-84 mm Hg] 142/86mm Hg *H* (07/22/21 6:00 PM) 133/85mm Hg (07/22/21 12:45 PM) 121/88mm Hg (07/22/21 11:51 AM) Respiratory Rate [16-30 br/min] 16 br/min (07/22/21 6:00 PM) 16 br/min (07/22/21 12:45 PM) 16 br/min (07/22/21 12:30 PM) Temperature [96.8-100.4 DegF] 98.6 DegF (07/22/21 6:00 PM) 98.9 DegF (07/22/21 11:51 AM) Mode of Delivery (Oxygen) Room air (07/22/21 6:00 PM) Room air (07/22/21 12:45 PM) Room air (07/22/21 12:30 PM) Blood pressure sites Arm, right (07/22/21 12:45 PM) Arm, right (07/22/21 11:51 AM) Temperature Route Oral (07/22/21 6:00 PM) Oral (07/22/21 11:51 AM) Dry Weight 82 kg (07/22/21 12:45 PM) 82 kg (07/22/21 11:51 AM) Social History Social History Type Response Smoking Status Current every day sm ryanne; Other: chewing tobacco; entered on: 11/28/16 Sex
[2024-07-23 16:39] LABS: Alanine Aminotransferase 26 U/L (0-40); Alkaline Phosphatase 67 U/L (39-117); Anion Gap 20 (12-20); Aspartate Amino Transferase 60 U/L (5-37); Bilirubin Total 0.5 mg/dL (0.0-1.0); Blood Urea Nitrogen 16 mg/dL (9-16); Calcium 8.5 mg/dL (8.4-10.2); Carbon Dioxide 26 mmol/L (22-29); Chloride 102 mmol/L (96-108); Creatinine Clr Calc Pharmacy 98.1; Estimated Glomerular Filt Rate > 60; Ethanol 411 mg/dL; Glucose Random 88 mg/dL (60-115); Sodium 144 mmol/L (135-145); Total Protein 6.4 g/dL (6.5-8.0)
--- NOTE | 2024-07-23 16:57 | ED.ALCOHOL ---
HPI - Alcohol General Chief Complaint: ETOH/Substance Use Stated Complaint: ETOH Time Seen by Provider: 07/23/24 16:09 Source: patient History of Present Illness ED Provider: Chago ABBOTT narrative: 61-year-old male with past medical history of alcohol abuse, DVTs on Eliquis presenting for intoxication. Patient has frequent presentations for alcohol intoxication and states that he called EMS today because he was experiencing hiccups. His symptoms have since resolved in per EMS patient was agitated and combative in transport. Patient states that he has been drinking more over the past week. Patient denies any recent trauma and other than the hiccups he was experiencing has no physical complaints Related Data Home Medications ?Medication ?Instructions ?Recorded ?Confirmed escitalopram oxalate 10 mg tablet 10 mg PO QAM 04/03/23 11/22/23 hydroxyzine HCl 25 mg tablet 50 mg PO BEDTIME 04/03/23 11/22/23 meloxicam 7.5 mg tablet 7.5 mg PO DAILY moderate pain 04/03/23 11/22/23 nicotine (polacrilex) 4 mg gum 4 mg PO Q4H PRN Nicotine Cravings 04/03/23 11/22/23 turmeric 400 mg capsule 1,600 mg PO DAILY 05/07/23 11/22/23 multivitamin 1 tab PO DAILY 11/22/23 11/22/23 naltrexone 50 mg tablet 50 mg PO QAM 11/22/23 11/22/23 nicotine 21 mg/24 hr daily 1 patch topical DAILY 11/22/23 11/22/23 transdermal patch Previous Rx's ?Medication ?Instructions ?Recorded apixaban 5 mg (74 tabs) tablets in 5 mg PO BID #74 ea 11/24/23 a dose pack (Eliquis DVT-PE Treat 30D Start) benzonatate 200 mg capsule 200 mg PO TID PRN cough #30 caps 02/09/24 cefuroxime axetil 500 mg tablet 500 mg PO BID 7 days #14 tabs 02/09/24 Allergies Allergy/AdvReac Type Severity Reaction Status Date / Time pollen extracts [POLLEN] Allergy Unknown UNKNOWN Verified 07/23/24 15:36 Review of Systems Review of Systems: Patient endorses hiccups, intoxication Patient denies head pain, neck pain, chest pain, shortness of breath, abdominal pain or urinary symptoms, fevers, chills Yes all other systems are reviewed and are negative [facility] Past Medical History Medical History DVT (deep venous thrombosis) Alcohol use disorder, moderate, dependence Social History Social History Household Members: None Housing: Apartment Do you presently have visiting nurse or other home services: No Alcohol intake: current Alcohol intake frequency: 3 or more drinks per day Alcohol type: beer and hard liquor Patient Tobacco Use Status: Former Tobacco user Tobacco use type: Cigarette Smoked in Last 30 Days: Yes Use of substances other than those prescribed or required for medical reasons: No Advance Directives: No Advance Directives Information Provided: No Do you have a plan to hurt others: No Plan service: No Physical Exam ED Vital Signs: Vital Signs - 24 hr 07/23/24 16:01 Temperature 98.2 F Pulse Rate 92 Respiratory Rate 16 Blood Pressure 118/94 H Pulse Oximetry 98 Oxygen Delivery Method Room Air BMI result Body Mass Index 25.8 No external signs of trauma; head normocephalic atraumatic; no midline C-spine tenderness Lungs clear to auscultation bilaterally; normal S1-S2 regular rate rhythm Bedside echo showed aortic root of less than 4 cm; no appreciable pericardial effusion Medical Decision Making Medical Decision Making MDM Narrative: This is a 63-year-old male presenting for alcohol intoxication. I have no concerns for any acute underlying infection or life-threatening pathology. Patient has no external signs of trauma. Labs were ordered in triage. I ordered folic acid and thiamine and nicotine gum No ischemic changes seen on EKG I reviewed patient's labs; H&H stable, BMP within normal limits 18:25: Patient is walking with steady gait requesting more nicotine gum. Patient appears clinically sober. I discharged him with resources for detox facilities Differential Diagnosis Differential Diagnoses: The differential diagnosis associated with the presentation includes Alcohol intoxication, hiccups, electrolyte/metabolic disturbance Lab Data 07/23/24 16:09 07/23/24 16:09 Labs: Lab Results 07/23/24 Range/Units 16:09 WBC 5.5 (4.8-10.8) X10*3/uL RBC 4.89 (4.60-5.80) X10*6/uL Hgb 16.0 (14.0-18.0) g/dl Hct 45.7 (42.0-52.0) % MCV 93.5 (80.0-98.0) fL MCH 32.7 (27.0-33.0) pg MCHC 35.0 (31.0-36.0) g/dl RDW 14.4 (11.0-16.0) % Plt Count 109 L D (160-400) X10*3/uL MPV 8.2 L (9.4-12.4) fL Immature Gran % (Auto) 0.7 H (0.0-0.4) % Neut % (Auto) 65.7 (45-73) % Lymph % (Auto) 24.7 (20-40) % [place] % (Auto) 7.3 (2-11) % Eos % (Auto) 1.1 (0-4) % Baso % (Auto) 0.5 (0-2) % Lymph # (Auto) 1.4 (1.2-4.9) X10*3/uL [place] # (Auto) 0.4 (0.1-1.2) X10*3/uL Eos # (Auto) 0.1 (0.0-0.4) X10*3/uL Baso # (Auto) 0.0 (0.0-0.2) X10*3/uL Abs Immat Gran (auto) 0.04 H (0.00-0.03) X10*3/uL Absolute Neuts (auto) 3.6 (2.0-8.3) x10*3/uL Absolute Nucleated RBC 0.000 (0.0-0.012) X10*3/uL Nucleated RBC % (auto) 0.0 (0.0-0.2) /100WBC Sodium 144 (135-145) mmol/L Potassium 4.0 (3.3-5.1) mmol/L Chloride 102 (96-108) mmol/L Carbon Dioxide 26 (22-29) mmol/L Anion Gap 20 (12-20) BUN 16 (9-16) mg/dL Creatinine 0.78 (0.5-1.4) mg/dL Estim Creat Clear Calc 98.1 Estimated GFR > 60 Random Glucose 88 (60-115) mg/dL Calcium 8.5 (8.4-10.2) mg/dL Total Bilirubin 0.5 (0.0-1.0) mg/dL AST 60 H (5-37) U/L ALT 26 (0-40) U/L Alkaline Phosphatase 67 (39-117) U/L Total Protein 6.4 L (6.5-8.0) g/dL Albumin 4.0 (3.5-5.0) g/dL Ethyl Alcohol 411 H* mg/dL Medications Administered Discontinued Medications Generic Name Dose Route Start Last Admin Trade Name Freq PRN Reason Stop Dose Admin Folic Acid 1 mg 07/23/24 16:14 07/23/24 16:18 Folic Acid 1 Mg Tablet PO 07/23/24 16:15 1 mg ONCE ONE Administration Nicotine Polacrilex 2 mg 07/23/24 16:14 07/23/24 16:18 Nicotine Polacrilex 2 Mg Gum BUCCAL 07/23/24 16:15 2 mg ONCE ONE Administration Thiamine HCl 100 mg 07/23/24 16:14 07/23/24 16:18 Thiamine Hcl 100 Mg Tablet PO 07/23/24 16:15 100 mg ONCE ONE Administration Discharge Plan Discharge Clinical Impression: Alcoholic intoxication Patient Disposition: Home, Self-Care Additional Instructions: Please refrain from excessive alcohol use. Please schedule an appointment with your primary care physician for reassessment in 24-48 hours If you would like assistance with detox please refer to the packet you were given Prescriptions: No Action meloxicam 7.5 mg tablet 7.5 mg PO DAILY nicotine (polacrilex) 4 mg gum 4 mg PO Q4H PRN (Reason: Nicotine Cravings) hydroxyzine HCl 25 mg tablet 50 mg PO BEDTIME escitalopram oxalate 10 mg tablet 10 mg PO QAM turmeric 400 mg Capsule 1,600 mg PO DAILY naltrexone 50 mg tablet 50 mg PO QAM nicotine 21 mg/24 hr patch 24 hour 1 patch topical DAILY multivitamin Tablet 1 tab PO DAILY Eliquis DVT-PE Treat 30D Start 5 mg (74 tabs) tablets,dose pack 5 mg PO BID Qty: 74 0RF Rx Instructions: 10 mg (2 tabs) twice daily for 7 days, then 5 mg twice daily for life benzonatate 200 mg capsule 200 mg PO TID PRN (Reason: cough) Qty: 30 0RF cefuroxime axetil 500 mg tablet 500 mg PO BID 7 Days Qty: 14 0RF Print Language: Slovak
--- NOTE | 2024-07-23 18:19 | PC.NURSE ---
urine obtained/sent to lab by tech.
[2024-07-23 19:35] VITALS: BP 130/90; PULSE 99; RESP 16; TEMP 36.3; O2SAT 95
[2024-07-23 20:47] LABS: Amphetamine Screen Urine Not Detected (Not Detect); Barbiturates, Urine Not Detected (Not Detect); Benzodiazepines Screen Urine Not Detected (Not Detect); Buprenorphine Scr Not Detected (Not Detect); Cannabinoid Screen Urine Not Detected (Not Detect); Cocaine Screen Urine Not Detected (Not Detect); Fentanyl, urine Not Detected (Not Detect); Methadone Screen, Urine Not Detected (Not Detect); Opiate Screen Urine Not Detected (Not Detect); Oxycodone Screen Urine Not Detected (Not Detect); Phencyclidine Screen Urine Not Detected (Not Detect)
== END 2024-07-23 19:38 | disposition home or self-care (01) ==
PROVIDERS: Emergency Provider Student in an Organized Health Care Education/Training Program
DX: F10.220 Alcohol dependence with intoxication, uncomplicated (principal); Y90.8 Blood alcohol level of 240 mg/100 ml or more
CPT/HCPCS: 36415; 80053; 80307; 85025; 93005; 99285

== ENCOUNTER 2024-08-15 18:47 | Emergency (ER) | payer MEDICAID, SELFPAY ==
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
[2024-08-15 18:59] VITALS: BP 134/90; BP 135/104; PULSE 90; PULSE 96; RESP 18; TEMP 36.8; O2SAT 93; O2SAT 95; BMI 28.2
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
[2024-08-15 19:15] VITALS: BP 139/97; PULSE 90; RESP 19; TEMP 36.8; O2SAT 94
[2024-08-15] MEDS: Nicotine Polacrilex 2 MG GUM BUCCAL (19:15)
[2024-08-15 19:16] LABS: MANUAL DIFF FLAG NO
[2024-08-15 19:20] LABS: Basophils Absolute Auto 0.1 X10*3/uL (0.0-0.2); Basophils Percent Auto 1.4 % (0-2); Eosinophils Percent Auto 0.5 % (0-4); Hematocrit 40.9 % (42.0-52.0); Hemoglobin 14.3 g/dl (14.0-18.0); Imm Gran Abs Auto 0.06 X10*3/uL (0.00-0.03); Imm Gran Pct Auto 1.4 % (0.0-0.4); Lymphocytes Absolute Auto 1.4 X10*3/uL (1.2-4.9); Lymphocytes Percent Auto 31.8 % (20-40); Mean Corpuscular Hemoglobin 32.9 pg (27.0-33.0); Mean Corpuscular Volume 94.2 fL (80.0-98.0); Monocytes Absolute Auto 0.5 X10*3/uL (0.1-1.2); Monocytes Percent Auto 12.6 % (2-11); Neutrophils Absolute Auto 2.2 x10*3/uL (2.0-8.3); Neutrophils Percent Auto 52.3 % (45-73); Platelet Count 229 X10*3/uL (160-400); Red Blood Count 4.34 X10*6/uL (4.60-5.80); Red Cell Distribution Width 13.9 % (11.0-16.0); White Blood Count 4.3 X10*3/uL (4.8-10.8)
[2024-08-15 19:30] LABS: Ethanol 327 mg/dL
[2024-08-15 19:31] LABS: Anion Gap 15 (12-20); Blood Urea Nitrogen 19 mg/dL (9-16); Calcium 8.9 mg/dL (8.4-10.2); Carbon Dioxide 23 mmol/L (22-29); Chloride 110 mmol/L (96-108); Creatinine Clr Calc Pharmacy 99.9; Estimated Glomerular Filt Rate > 60; Glucose Random 98 mg/dL (60-115); Potassium 3.5 mmol/L (3.3-5.1); Sodium 144 mmol/L (135-145)
[2024-08-15 19:37] LABS: Prothrombin Time 11.3 SEC (10.9-12.4)
[2024-08-15 19:39] LABS: Troponin-I High Sensitivity 2.7 ng/L (<3.5-35.0)
[2024-08-15 21:38] VITALS: BP 104/71; PULSE 84; RESP 16; TEMP 36.6; O2SAT 96
[2024-08-15 23:48] VITALS: BP 118/84; PULSE 73; RESP 13; TEMP 36.6; O2SAT 98
[2024-08-16 05:35] VITALS: BP 111/67; PULSE 73; RESP 17; TEMP 36.8; O2SAT 95
[2024-08-16] MEDS: Acetaminophen 325 MG TABLET 975 MG PO (05:44)
[2024-08-16] MEDS: Nicotine Polacrilex 2 MG GUM BUCCAL (05:44)
--- NOTE | 2024-08-16 07:30 | PC.NURSE ---
Pt ambulatory with a steady gait around unit. Pt A&Ox3, stable and safe for discharge at this time.
== END 2024-08-16 07:31 | disposition home or self-care (01) ==
PROVIDERS: Emergency Provider Emergency Medicine
DX: S00.83XA Contusion of other part of head, initial encounter (principal); M54.2 Cervicalgia; R51.9 Headache, unspecified; Y04.2XXA Assault by strike against or bumped into by another person, initial encounter; F10.129 Alcohol abuse with intoxication, unspecified; Y90.8 Blood alcohol level of 240 mg/100 ml or more; Y93.89 Activity, other specified; Y92.480 Sidewalk as the place of occurrence of the external cause; Y99.8 Other external cause status; Z79.899 Other long term (current) drug therapy; Z79.01 Long term (current) use of anticoagulants; Z87.891 Personal history of nicotine dependence
CPT/HCPCS: 36415; 70450; 70486; 72125; 80048; 80307; 84484; 85025; 85610; 99284

== ENCOUNTER 2024-08-22 17:32 | Emergency (ER) | payer MEDICAID, SELFPAY ==
[2024-08-22 18:19] VITALS: BP 135/87; PULSE 81; RESP 16; TEMP 37.2; O2SAT 94; BMI 27.7
--- NOTE | 2024-08-22 18:25 | ED_ITS ---
HPI - Alcohol General Chief Complaint: ETOH/Substance Use Stated Complaint: ETOH Time Seen by Provider: 08/22/24 18:25 Source: patient Limitations: no limitations History of Present Illness ED Provider: Noni Michaels PA-C HPI narrative: 63-year-old male with a history of alcohol use disorder presents requesting detox. Patient has been drinking today, he drinks every day. Denies SI or HI. Related Data Home Medications ?Medication ?Instructions ?Recorded ?Confirmed escitalopram oxalate 10 mg tablet 10 mg PO QAM 04/03/23 11/22/23 hydroxyzine HCl 25 mg tablet 50 mg PO BEDTIME 04/03/23 11/22/23 meloxicam 7.5 mg tablet 7.5 mg PO DAILY moderate pain 04/03/23 11/22/23 nicotine (polacrilex) 4 mg gum 4 mg PO Q4H PRN Nicotine Cravings 04/03/23 11/22/23 turmeric 400 mg capsule 1,600 mg PO DAILY 05/07/23 11/22/23 multivitamin 1 tab PO DAILY 11/22/23 11/22/23 naltrexone 50 mg tablet 50 mg PO QAM 11/22/23 11/22/23 nicotine 21 mg/24 hr daily 1 patch topical DAILY 11/22/23 11/22/23 transdermal patch Previous Rx's ?Medication ?Instructions ?Recorded apixaban 5 mg (74 tabs) tablets in 5 mg PO BID #74 ea 11/24/23 a dose pack ([employer] DVT-PE Treat 30D Start) benzonatate 200 mg capsule 200 mg PO TID PRN cough #30 caps 02/09/24 cefuroxime axetil 500 mg tablet 500 mg PO BID 7 days #14 tabs 02/09/24 Allergies Allergy/AdvReac Type Severity Reaction Status Date / Time pollen extracts [POLLEN] Allergy Unknown UNKNOWN Verified 08/22/24 18:21 Review of Systems 2 Review of Systems: Yes all other systems are reviewed and are negative Constitutional: Constitutional: Denies fever(s) Cardiovascular: Cardiovascular: Denies chest pain and Denies dyspnea Respiratory: Respiratory: Denies dyspnea Gastrointestinal: Gastrointestinal: Denies abdominal pain, Denies nausea and Denies vomiting PMFSH Past Medical History Attestation statement: The following information was validated with the patient. Medical History DVT (deep venous thrombosis) Alcohol use disorder, moderate, dependence Social History Social History Household Members: None Housing: Apartment Do you presently have visiting nurse or other home services: No Alcohol intake: current Alcohol intake frequency: 3 or more drinks per day Alcohol type: hard liquor Patient Tobacco Use Status: Former Tobacco user Tobacco use type: Cigarette Smoked in Last 30 Days: No Use of substances other than those prescribed or required for medical reasons: No Advance Directives: No Advance Directives Information Provided: No service: No Physical Exam ED Vital Signs: Vital Signs - 24 hr 08/22/24 18:19 Temperature 99.0 F Pulse Rate 81 Respiratory Rate 16 Blood Pressure 135/87 Pulse Oximetry 94 Oxygen Delivery Method Room Air BMI result Body Mass Index 27.7 Const Other: Awake, appears older than stated age Orientation/consciousness: patient oriented x3 HENMT Other: Dry oral mucosa, alcohol halitosis Resp Effort & Inspection: normal respiratory effort Cardio Other: Normal peripheral perfusion Skin Other: Warm dry no rash Neuro Other: No tremor General: patient oriented x3, no focal motor deficits and CN's II-XI intact bilaterally Psych Other: Cooperative for now Course Reevaluation(s) Reevaluation #1: The care team we will be speaking with the patient, there are no current beds at this time, he will be placed on a waiting list at [facility], we will have a head strength and conditioning coach in the morning to help expedite detox for the patient. He will be a physician obs in the meantime, ciwa is in place. Medical Decision Making Medical Decision Making MDM Narrative: 63-year-old male with a history of alcohol use disorder presents requesting detox. Patient has been drinking today, he drinks every day. Denies SI or HI. Problem: Alcohol abuse History: Per patient I have considered the following differential diagnoses: Alcohol intoxication, alcohol withdrawal, alcohol call withdrawal seizures Plan: Patient is requesting detox, we can hold him overnight, head strength and conditioning coach we will be here in the morning, in the meantime care team we will see him in place him on a list with [facility] we will be screening basic labs, ethanol and drug screen, CIWA ordered I have independently reviewed the following tests: Labs: no leukocytosis, not anemic, no electrolyte abnormality, ethanol 254, Lab Data 08/22/24 19:19 08/22/24 19:19 Labs: Lab Results 08/22/24 Range/Units 19:19 WBC 4.0 L (4.8-10.8) X10*3/uL RBC 4.62 (4.60-5.80) X10*6/uL Hgb 15.1 (14.0-18.0) g/dl Hct 42.9 (42.0-52.0) % MCV 92.9 (80.0-98.0) fL MCH 32.7 (27.0-33.0) pg MCHC 35.2 (31.0-36.0) g/dl RDW 14.8 (11.0-16.0) % Plt Count 131 L D (160-400) X10*3/uL MPV 8.0 L (9.4-12.4) fL Immature Gran % (Auto) 2.0 H (0.0-0.4) % Neut % (Auto) 72.7 (45-73) % Lymph % (Auto) 19.0 L (20-40) % [place] % (Auto) 5.5 (2-11) % Eos % (Auto) 0.3 (0-4) % Baso % (Auto) 0.5 (0-2) % Lymph # (Auto) 0.8 L (1.2-4.9) X10*3/uL [place] # (Auto) 0.2 (0.1-1.2) X10*3/uL Eos # (Auto) 0.0 (0.0-0.4) X10*3/uL Baso # (Auto) 0.0 (0.0-0.2) X10*3/uL Abs Immat Gran (auto) 0.08 H (0.00-0.03) X10*3/uL Absolute Neuts (auto) 2.9 (2.0-8.3) x10*3/uL Absolute Nucleated RBC 0.000 (0.0-0.012) X10*3/uL Nucleated RBC % (auto) 0.0 (0.0-0.2) /100WBC Sodium 144 (135-145) mmol/L Potassium 3.7 (3.3-5.1) mmol/L Chloride 99 (96-108) mmol/L Carbon Dioxide 26 (22-29) mmol/L Anion Gap 23 H (12-20) BUN 15 (9-16) mg/dL Creatinine 0.82 (0.5-1.4) mg/dL Estim Creat Clear Calc 101.0 Estimated GFR > 60 Random Glucose 154 H (60-115) mg/dL Calcium 8.6 (8.4-10.2) mg/dL Magnesium 2.0 (1.6-2.6) mg/dL Total Bilirubin 0.5 (0.0-1.0) mg/dL AST 56 H (5-37) U/L ALT 32 (0-40) U/L Alkaline Phosphatase 65 (39-117) U/L Total Protein 6.7 (6.5-8.0) g/dL Albumin 4.3 (3.5-5.0) g/dL Lipase 28 (8-78) U/L Ethyl Alcohol 254 mg/dL Discharge Plan Discharge Clinical Impression: Alcohol abuse Patient Disposition: Still a Patient Prescriptions: No Action meloxicam 7.5 mg tablet 7.5 mg PO DAILY nicotine (polacrilex) 4 mg gum 4 mg PO Q4H PRN (Reason: Nicotine Cravings) hydroxyzine HCl 25 mg tablet 50 mg PO BEDTIME escitalopram oxalate 10 mg tablet 10 mg PO QAM turmeric 400 mg Capsule 1,600 mg PO DAILY naltrexone 50 mg tablet 50 mg PO QAM nicotine 21 mg/24 hr patch 24 hour 1 patch topical DAILY multivitamin Tablet 1 tab PO DAILY Eliquis DVT-PE Treat 30D Start 5 mg (74 tabs) tablets,dose pack 5 mg PO BID Qty: 74 0RF Rx Instructions: 10 mg (2 tabs) twice daily for 7 days, then 5 mg twice daily for life benzonatate 200 mg capsule 200 mg PO TID PRN (Reason: cough) Qty: 30 0RF cefuroxime axetil 500 mg tablet 500 mg PO BID 7 Days Qty: 14 0RF Print Language: Turkmen
[2024-08-22 19:25] LABS: MANUAL DIFF FLAG NO
[2024-08-22 19:32] LABS: Basophils Percent Auto 0.5 % (0-2); Eosinophils Percent Auto 0.3 % (0-4); Hematocrit 42.9 % (42.0-52.0); Hemoglobin 15.1 g/dl (14.0-18.0); Imm Gran Abs Auto 0.08 X10*3/uL (0.00-0.03); Lymphocytes Absolute Auto 0.8 X10*3/uL (1.2-4.9); Mean Corpuscular HGB Conc 35.2 g/dl (31.0-36.0); Mean Corpuscular Hemoglobin 32.7 pg (27.0-33.0); Mean Corpuscular Volume 92.9 fL (80.0-98.0); Monocytes Absolute Auto 0.2 X10*3/uL (0.1-1.2); Monocytes Percent Auto 5.5 % (2-11); Neutrophils Absolute Auto 2.9 x10*3/uL (2.0-8.3); Neutrophils Percent Auto 72.7 % (45-73); Platelet Count 131 X10*3/uL (160-400); Red Blood Count 4.62 X10*6/uL (4.60-5.80); Red Cell Distribution Width 14.8 % (11.0-16.0)
--- NOTE | 2024-08-22 19:42 | PC.NURSE ---
CIWA Score 11 COWS Score 8 ---BEDSPRING ASSEMBLER Brando Notified via [employer] connect- pt pleasant, calm and cooperative with care
[2024-08-22 19:46] LABS: Alanine Aminotransferase 32 U/L (0-40); Albumin Level 4.3 g/dL (3.5-5.0); Alkaline Phosphatase 65 U/L (39-117); Anion Gap 23 (12-20); Aspartate Amino Transferase 56 U/L (5-37); Bilirubin Total 0.5 mg/dL (0.0-1.0); Blood Urea Nitrogen 15 mg/dL (9-16); Calcium 8.6 mg/dL (8.4-10.2); Carbon Dioxide 26 mmol/L (22-29); Chloride 99 mmol/L (96-108); Estimated Glomerular Filt Rate > 60; Ethanol 254 mg/dL; Glucose Random 154 mg/dL (60-115); Lipase 28 U/L (8-78); Potassium 3.7 mmol/L (3.3-5.1); Sodium 144 mmol/L (135-145); Total Protein 6.7 g/dL (6.5-8.0)
[2024-08-22] MEDS: Ibuprofen 600 MG TABLET PO (19:58)
[2024-08-22] MEDS: Acetaminophen 325 MG TABLET 975 MG PO (19:58)
[2024-08-22] MEDS: Sucralfate Oral Suspension 1 GM/10 ML ORAL.SUSP PO (20:58)
[2024-08-22] MEDS: Magnesium Hydrox/Alum Hydrox 30 ML ORAL.SUSP PO (20:58)
--- NOTE | 2024-08-22 23:00 | PC.NURSE ---
This technical writer and editor assumed care of this Pt at 2300. Pt appears to be sleeping, equal non labored respirations. NO apparent distress. Plan of care on going.
--- NOTE | 2024-08-22 23:30 | MHC.CARE ---
Pt was referred to Recovery however, due to the time, recovery was not accessible. Pt reported that he is seeking detox for alcohol at this time and indicated that he has been consuming alcohol at an increasing amount. He indicated that he had four large bottles in his room and although nor clear how much he consumed at once, pt indicated that his alcohol intake has been steadily increasing and he knows that if he returns home at this time he will continue to drink and not receive the appropriate help. He reported that he does not have acess to transportation however, if the hospital is able to help with an Uber or Lyft that he is open to go to any detox regardless the distance. He reported that he would like to remain in the ED overnight and speak to recovery in the morning to assist with securing placement at a detox as he has not been successful in the past doing a walk in at [facility]. He was calm and cooperative and voluntary for treatment. Information was passed to the ED attending at this time who is agreeable to have him remain in the ED and speak to recovery in the morning regarding detox.
[2024-08-23] VITALS: BP 114/74; PULSE 82; RESP 16; TEMP 36.6; O2SAT 93
--- NOTE | 2024-08-23 04:15 | PC.NURSE ---
Pt awake, ambulated to BR independently with steady gait, Pt reports vomiting. CIWA score 11.
[2024-08-23 04:39] LABS: Amphetamine Screen Urine Not Detected (Not Detect); Barbiturates, Urine Not Detected (Not Detect); Benzodiazepines Screen Urine Not Detected (Not Detect); Buprenorphine Scr Not Detected (Not Detect); Cannabinoid Screen Urine Not Detected (Not Detect); Cocaine Screen Urine Not Detected (Not Detect); Fentanyl, urine Not Detected (Not Detect); Methadone Screen, Urine Not Detected (Not Detect); Opiate Screen Urine Not Detected (Not Detect); Oxycodone Screen Urine Not Detected (Not Detect); Phencyclidine Screen Urine Not Detected (Not Detect)
[2024-08-23 06:00] VITALS: BP 133/84; PULSE 65; RESP 16; TEMP 36.5; O2SAT 95
[2024-08-23] MEDS: LORazepam 1 MG TABLET 2 MG PO ×2 (07:10→11:28)
[2024-08-23] MEDS: Ondansetron ODT 4 MG TAB.RAPDIS TRANSLINGU (07:11)
[2024-08-23 08:03] VITALS: BP 144/86; PULSE 59; RESP 16; TEMP 36.6; O2SAT 93
--- NOTE | 2024-08-23 08:20 | PC.NURSE ---
med rec completed with pharmacy fill list and confirmation with patient. PA notifed
--- NOTE | 2024-08-23 09:44 | MHC.RECOVRN ---
Met with pt in [id number], along with tin recovery worker Blaine, after pt requesting ATS. Pt sitting in bed, awake, alert, easily engages in conversation. Pt reports alcohol use, 2 liters vodka daily x 10 days. Denies other substances. Pt reports he recently was in recovery x 8 months. Interested in ATS, willing to go to any facility. Bedsearch will be conducted.
--- NOTE | 2024-08-23 10:32 | PHA.MEDREC ---
Addendum entered by Arti Lombardi RPh 08/23/24 11:00: [facility] REVIEWED Original Note: Pharmacy Consult ? Medication Reconciliation Pharmacy reviewed med rec done by. Spoke to patient to confirm Hydroxyzine and he states he takes 2 tabs at bedtime. Patient also stated he is taking Naltrexone daily but didn't remember the dose, he stated he is currently filling it at [facility], looking in claims showed he had filled Naltrexone 50mg once daily back in September 2023. I called [facility] to inquire more on the med and they confirmed they have filled a Naltrexone 50mg tab September 29, 2023 for a 90 day supply and nothing after that. The patient states he has not taken anything in about 2 days.
[2024-08-23] MEDS: Nicotine Polacrilex 2 MG GUM 4 MG BUCCAL (11:28)
--- NOTE | 2024-08-23 11:32 | PC.NURSE ---
pt medicated w PRN ativan for CIWA of 12, and nicotine gum.
[2024-08-23 13:37] VITALS: BP 148/91; PULSE 88; RESP 12; TEMP 37; O2SAT 93
--- NOTE | 2024-08-23 14:52 | MHC.RECOVRN ---
Pt accepted to [facility] for 1530 admission. Will be transported via Lyft. RN and provider aware.
[2024-08-23 15:13] VITALS: BP 149/92; PULSE 92; RESP 18; TEMP 36.8; O2SAT 95
[2024-08-23 15:17] VITALS: BP 142/84; PULSE 66; RESP 14; TEMP 36.3; O2SAT 100
== END 2024-08-23 15:29 | disposition other institution (70) ==
PROVIDERS: Physician Assistant Medical; Emergency Provider Emergency Medicine
DX: F10.129 Alcohol abuse with intoxication, unspecified (principal); Y90.8 Blood alcohol level of 240 mg/100 ml or more; Z51.81 Encounter for therapeutic drug level monitoring; Z79.899 Other long term (current) drug therapy
CPT/HCPCS: 36415; 80053; 80307; 83690; 83735; 85025; 99284; 99285

== ENCOUNTER 2024-10-01 14:02 | Emergency (ER) | payer MEDICAID, SELFPAY ==
--- NOTE | ~2024-10-01 | CT_ITS ---
EXAMINATION: CT ABDOMEN AND PELVIS WITHOUT CONTRAST CLINICAL INFORMATION: Flank pain. COMPARISON: CT abdomen pelvis dated 10/22/2023. TECHNIQUE: Multidetector volumetric imaging was performed from the superior aspect of the liver through the pubic symphysis. Sagittal and coronal reformatted images were obtained on the technologist's workstation. This CT examination was performed using dose optimization techniques as appropriate, variously including the following: *Automated exposure control *Adjustment of mA and/or kV according to patient size (this includes techniques or standardized protocols for targeted exams where dose is matched to indication/reason for exam; i.e. extremities or head) *Use of iterative reconstruction technique DLP: 624 mGy-cm FINDINGS: LUNG BASES: The visualized lung bases are unremarkable. LIVER, GALLBLADDER, AND BILIARY TREE: The liver is normal in size. It demonstrates decreased attenuation. No focal hepatic lesion or biliary ductal dilatation is present. The gallbladder is unremarkable with no evidence of radiopaque gallstones, gallbladder wall thickening, or obvious pericholecystic inflammatory changes. PANCREAS: Unremarkable. SPLEEN: Unremarkable. ADRENAL GLANDS: Unremarkable. KIDNEYS AND URETERS: The kidneys are normal in size, shape, and attenuation. No hydronephrosis, hydroureter, or calculi seen. No perinephric stranding. BLADDER: Unremarkable. GASTROINTESTINAL TRACT: The small and large bowel are unremarkable. The appendix is unremarkable. ABDOMINAL WALL: No significant hernia is appreciated. LYMPH NODES: No lymphadenopathy. VASCULAR: No abdominal aortic aneurysm. PELVIC VISCERA: Unremarkable. OSSEOUS STRUCTURES: There is multilevel lumbar spine degenerative disease. CT/CT abdomen pelvis wo IV con IMPRESSION: Hepatic steatosis. No renal, ureteric, or urinary bladder calculi. No hydronephrosis. Fleischner guidelines were followed. Electronically signed by: Teodoro Brown DO 10/01/2024 06:40 PM EST
[2024-10-01 14:28] VITALS: BP 130/80; BP 154/98; PULSE 20; PULSE 94; RESP 16; TEMP 36.2; O2SAT 94; BMI 24.4
--- NOTE | 2024-10-01 15:18 | ED_ITS ---
HPI - Alcohol General Chief Complaint: ETOH/Substance Use Stated Complaint: ETOH/BACK PAIN Time Seen by Provider: 10/01/24 15:00 Source: patient, EMS and old records reviewed Mode of arrival: EMS Limitations: other (ETOH intoxication) History of Present Illness ED Provider: JULIANA ABBOTT narrative: 63 yo male with alcohol use disorder last drink 11am, DVT on lifelong eliquis, who reports recent binge drinking for 3 days asking to go to detox. He denies SI or falls. He notes he woke up this AM with low back pain but no b/b incontinence, no saddle anesthesia, no abdominal pain. Denies or GI symptoms. He states it hurts to move, he doesn't know this happened. MD complaint: alcohol dependence and desires rehab Last drink: Hours (ago) (11am today) Chronic alcohol use: Yes Previous visits for alcohol intoxication: Yes Recent trauma: No Associated symptoms: other (low back pain) Treatments prior to arrival: none Related Data Home Medications ?Medication ?Instructions ?Recorded ?Confirmed hydroxyzine HCl 25 mg tablet 50 mg PO BEDTIME 04/03/23 08/23/24 nicotine (polacrilex) 4 mg gum 4 mg PO Q4H PRN Nicotine Cravings 04/03/23 08/23/24 turmeric 400 mg capsule 1,600 mg PO DAILY 05/07/23 08/23/24 multivitamin 1 tab PO DAILY 11/22/23 08/23/24 acetaminophen 500 mg tablet 500 mg PO Q6H PRN mild pain 08/23/24 08/23/24 naltrexone 50 mg tablet 50 mg PO QAM 08/23/24 08/23/24 Previous Rx's ?Medication ?Instructions ?Recorded apixaban 5 mg (74 tabs) tablets in 5 mg PO BID #74 ea 11/24/23 a dose pack (Eliquis DVT-PE Treat 30D Start) apixaban 5 mg (74 tabs) tablets in 5 mg PO BID #74 ea 08/23/24 a dose pack (Eliquis DVT-PE Treat 30D Start) Allergies Allergy/AdvReac Type Severity Reaction Status Date / Time pollen extracts [POLLEN] Allergy Unknown UNKNOWN Verified 10/01/24 14:33 Review of Systems 2 Review of Systems: Constitutional : No Weight loss, No Fever, No Chills, ENT/Mouth : No Hearing loss, No Ear Pain, No Nasal Congestion, No Sinus Pain, No Hoarseness, No sore throat, No Rhinorrhea, No Swallowing Difficulty Cardiovascular : No Chest Pain, No SOB Respiratory : No Cough, No Dyspnea Gastrointestinal : No Nausea, No Vomiting, No Diarrhea, No abdominal Pain, No Hematochezia, No Melena Genitourinary : No Dysuria, No Urinary Frequency, No Hematuria, No Urinary Incontinence, Musculoskeletal : positive back pain Skin : No Skin Lesions, No rash Neuro : No Weakness, No Numbness, No Paresthesias, no loss of bowel or bladder incontinence, no saddle anesthesia All other systems reviewed and are negative [facility] Past Medical History Attestation statement: The following information was validated with the patient. Source: old records reviewed Medical History DVT (deep venous thrombosis) Alcohol use disorder, moderate, dependence Social History Social History Household Members: None Housing: Apartment Do you presently have visiting nurse or other home services: No Alcohol intake: current Alcohol intake frequency: 3 or more drinks per day Alcohol type: hard liquor Patient Tobacco Use Status: Former Tobacco user Tobacco use type: Cigarette Advance Directives: No Advance Directives Information Provided: No service: No Physical Exam ED Vital Signs: Vital Signs - 24 hr 10/01/24 14:28 Temperature 97.2 F Pulse Rate 94 Respiratory Rate 16 Blood Pressure 130/80 Pulse Oximetry 94 Oxygen Delivery Method Room Air BMI result Body Mass Index 24.4 Appearance: Alert. Oriented X3. No acute distress. ETOH odor, slurred speech Eyes: Pupils equal, round and reactive to light. ENT: Pharynx normal. atraumatic Neck: Normal inspection. Neck supple. CVS: Normal heart rate and rhythm. Pulses normal. Respiratory: No respiratory distress. Breath sounds normal. Abdomen: Soft and non-tender. Back: ttp near sacrum but no deformity or contusion Skin: Skin warm and dry. Normal skin color. Normal skin turgor. Extremities: No lower extremity edema. No calf ttp Neuro: Oriented X 3. No motor deficit. No sensory deficit. SILT inner thigh, L5/5 bilaterally can raise both legs Course Course Course Narrative: signed out to [place] pending workup Reevaluation(s) Reevaluation #1: AG from ETOH Medical Decision Making Medical Decision Making [facility] Narrative: 63 yo male with alcohol use disorder last drink 11am, DVT on lifelong eliquis here with c/o low back pain denies trauma has no cauda equina symptoms at this time will need labs, UA and CT scan for retroperitoneal hematoma - as for ETOH will start on CIWA and PRN ativan Differential Diagnosis Differential Diagnoses: The differential diagnosis associated with the presentation includes ETOH use disorder, back strain, low prob retroperitoneal hematoma Admission/Observation Consideration of admission/observation: Escalation of care including admission/observation considered Lab Data [facility] Lab Attestation statement: I reviewed the patient's lab results. 10/01/24 15:33 10/01/24 15:33 Labs: Lab Results 10/01/24 Range/Units 15:33 WBC 4.8 (4.8-10.8) X10*3/uL RBC 4.74 (4.60-5.80) X10*6/uL Hgb 15.4 (14.0-18.0) g/dl Hct 44.1 (42.0-52.0) % MCV 93.0 (80.0-98.0) fL MCH 32.5 (27.0-33.0) pg MCHC 34.9 (31.0-36.0) g/dl RDW 14.3 (11.0-16.0) % Plt Count 277 D (160-400) X10*3/uL MPV 7.8 L (9.4-12.4) fL Immature Gran % (Auto) 0.8 H (0.0-0.4) % Neut % (Auto) 62.8 (45-73) % Lymph % (Auto) 17.1 L (20-40) % [place] % (Auto) 18.5 H (2-11) % Eos % (Auto) 0.2 (0-4) % Baso % (Auto) 0.6 (0-2) % Lymph # (Auto) 0.8 L (1.2-4.9) X10*3/uL [place] # (Auto) 0.9 (0.1-1.2) X10*3/uL Eos # (Auto) 0.0 (0.0-0.4) X10*3/uL Baso # (Auto) 0.0 (0.0-0.2) X10*3/uL Abs Immat Gran (auto) 0.04 H (0.00-0.03) X10*3/uL Absolute Neuts (auto) 3.0 (2.0-8.3) x10*3/uL Absolute Nucleated RBC 0.000 (0.0-0.012) X10*3/uL Nucleated RBC % (auto) 0.0 (0.0-0.2) /100WBC Sodium 140 (135-145) mmol/L Potassium 4.3 (3.3-5.1) mmol/L Chloride 100 (96-108) mmol/L Carbon Dioxide 21 L (22-29) mmol/L Anion Gap 23 H (12-20) BUN 23 H (9-16) mg/dL Creatinine 0.95 (0.5-1.4) mg/dL Estim Creat Clear Calc 88.4 Estimated GFR > 60 Random Glucose 83 (60-115) mg/dL Calcium 9.2 D (8.4-10.2) mg/dL Magnesium 1.8 (1.6-2.6) mg/dL Total Bilirubin 0.3 (0.0-1.0) mg/dL Direct Bilirubin 0.1 (0.0-0.5) mg/dL AST 37 (5-37) U/L ALT 35 (0-40) U/L Total Protein 7.0 (6.5-8.0) g/dL Albumin 4.4 (3.5-5.0) g/dL Lipase 12 (8-78) U/L Ethyl Alcohol 280 mg/dL Independent Historian Clinical information obtained from an independent historian. History obtained from or confirmed by: EMS External Record Review External record reviewed: Inpatient record Medications Administered Discontinued Medications Generic Name Dose Route Start Last Admin Trade Name Freq PRN Reason Stop Dose Admin Thiamine HCl 100 mg 10/01/24 15:11 10/01/24 15:40 Thiamine Hcl 100 Mg Tablet PO 10/01/24 15:12 100 mg ONCE ONE Administration Discharge Plan Discharge Clinical Impression: Alcohol use disorder, moderate, dependence Patient Disposition: Still a Patient Prescriptions: No Action nicotine (polacrilex) 4 mg gum 4 mg PO Q4H PRN (Reason: Nicotine Cravings) hydroxyzine HCl 25 mg tablet 50 mg PO BEDTIME turmeric 400 mg Capsule 1,600 mg PO DAILY multivitamin Tablet 1 tab PO DAILY Eliquis DVT-PE Treat 30D Start 5 mg (74 tabs) tablets,dose pack 5 mg PO BID Qty: 74 0RF Rx Instructions: 10 mg (2 tabs) twice daily for 7 days, then 5 mg twice daily for life acetaminophen 500 mg tablet 500 mg PO Q6H PRN (Reason: mild pain) naltrexone 50 mg tablet 50 mg PO QAM Eliquis DVT-PE Treat 30D Start 5 mg (74 tabs) tablets,dose pack 5 mg PO BID Qty: 74 0RF Print Language: Maori
[2024-10-01 15:39] LABS: MANUAL DIFF FLAG NO
[2024-10-01] MEDS: Thiamine HCL 100 MG TABLET PO (15:40)
[2024-10-01 15:42] LABS: Basophils Percent Auto 0.6 % (0-2); Eosinophils Percent Auto 0.2 % (0-4); Hematocrit 44.1 % (42.0-52.0); Hemoglobin 15.4 g/dl (14.0-18.0); Imm Gran Abs Auto 0.04 X10*3/uL (0.00-0.03); Imm Gran Pct Auto 0.8 % (0.0-0.4); Lymphocytes Absolute Auto 0.8 X10*3/uL (1.2-4.9); Lymphocytes Percent Auto 17.1 % (20-40); Mean Corpuscular HGB Conc 34.9 g/dl (31.0-36.0); Mean Corpuscular Hemoglobin 32.5 pg (27.0-33.0); Mean Platelet Volume 7.8 fL (9.4-12.4); Monocytes Absolute Auto 0.9 X10*3/uL (0.1-1.2); Monocytes Percent Auto 18.5 % (2-11); Neutrophils Percent Auto 62.8 % (45-73); Platelet Count 277 X10*3/uL (160-400); Red Blood Count 4.74 X10*6/uL (4.60-5.80); Red Cell Distribution Width 14.3 % (11.0-16.0); White Blood Count 4.8 X10*3/uL (4.8-10.8)
[2024-10-01 16:07] LABS: Alanine Aminotransferase 35 U/L (0-40); Albumin Level 4.4 g/dL (3.5-5.0); Anion Gap 23 (12-20); Aspartate Amino Transferase 37 U/L (5-37); Bilirubin Direct 0.1 mg/dL (0.0-0.5); Bilirubin Total 0.3 mg/dL (0.0-1.0); Blood Urea Nitrogen 23 mg/dL (9-16); Calcium 9.2 mg/dL (8.4-10.2); Carbon Dioxide 21 mmol/L (22-29); Chloride 100 mmol/L (96-108); Creatinine Clr Calc Pharmacy 88.4; Estimated Glomerular Filt Rate > 60; Ethanol 280 mg/dL; Glucose Random 83 mg/dL (60-115); Lipase 12 U/L (8-78); Magnesium 1.8 mg/dL (1.6-2.6); Potassium 4.3 mmol/L (3.3-5.1); Sodium 140 mmol/L (135-145)
[2024-10-01] MEDS: Nicotine Polacrilex 2 MG GUM BUCCAL ×3 (16:36→19:55)
--- NOTE | 2024-10-01 16:50 | PC.NURSE ---
Pt presented to ED via EMS, reports he has been on a 3 day alcohol binge , 3 liters of hard alcohol a day. Denies daily drinking, does have hx of withdrawals. Denies drug use, SI or HI. Alert and oriented, breathing even and unlabored, skin warm and dry. Reports lower back pain that he woke up with this morning, denies falls or injury. Pt was changed over by security and security took belongings to their lockers.
--- NOTE | 2024-10-01 16:52 | PC.NURSE ---
Pt has periods of yelling at RN and other staff. Pt took a food tray that was not his and ate it.
[2024-10-01 16:57] LABS: Alkaline Phosphatase 59 U/L (39-117)
[2024-10-01 18:39] VITALS: BP 111/83; PULSE 94; RESP 16; TEMP 37.2; O2SAT 93
[2024-10-01 19:38] LABS: Appearance Urine Clear; Color Urine Yellow; Glucose Urine UA Negative (Negative); Leukocyte Esterase Urine Negative (Negative); Nitrite Urine Negative (Negative); PH 5.5 (5.0-9.0); Specific Gravity - Urine 1.025 (1.005-1.025); UMIC TRIGGER UACC YES; Urine Blood Negative (Negative); Urine Ketones 40 mg/dL (Negative); Urine Protein 30 (1+) mg/dL (Neg-Trace)
[2024-10-01 19:42] LABS: Bacteria Urine None Seen (None Seen); Hyaline Casts Urine 0-2 /LPF (0-2); RBC Urine 0-2 /HPF (0-2); Squamous Epithelial Cell Urine 0-2 /HPF (0-2); WBC Urine 0-5 /HPF (0-5)
[2024-10-01 19:44] LABS: Amphetamine Screen Urine Not Detected (Not Detect); Barbiturates, Urine Not Detected (Not Detect); Benzodiazepines Screen Urine Not Detected (Not Detect); Buprenorphine Scr Not Detected (Not Detect); Cannabinoid Screen Urine Not Detected (Not Detect); Cocaine Screen Urine Not Detected (Not Detect); Fentanyl, urine Not Detected (Not Detect); Methadone Screen, Urine Not Detected (Not Detect); Opiate Screen Urine Not Detected (Not Detect); Oxycodone Screen Urine Not Detected (Not Detect); Phencyclidine Screen Urine Not Detected (Not Detect)
[2024-10-01] MEDS: LORazepam 1 MG TABLET 2 MG PO (19:55)
--- NOTE | 2024-10-01 21:19 | PHA.MEDREC ---
Pharmacy Consult ? Medication Reconciliation Pharmacy has reviewed the medication reconciliation completed by nursing.
[2024-10-01] MEDS: Apixaban 5 MG TABLET PO (21:38)
[2024-10-01] MEDS: hydrOXYzine HCL 25 MG TABLET PO (21:38)
[2024-10-02 05:18] VITALS: BP 141/75; PULSE 82; RESP 18; TEMP 37.1; O2SAT 98
[2024-10-02] MEDS: Nicotine Polacrilex 2 MG GUM 4 MG BUCCAL (05:20)
[2024-10-02] MEDS: LORazepam 1 MG TABLET 2 MG PO (05:21)
[2024-10-02 07:57] VITALS: BP 120/79; PULSE 81; RESP 18; TEMP 37.1; O2SAT 92
--- NOTE | 2024-10-02 08:24 | MHC.RECOVRN ---
Pts referral sent to [facility].
[2024-10-02] MEDS: Naltrexone HCl 50 MG TABLET PO (08:39)
[2024-10-02] MEDS: Apixaban 5 MG TABLET PO (08:39)
[2024-10-02] MEDS: Nicotine Polacrilex 2 MG GUM BUCCAL (09:07)
--- NOTE | 2024-10-02 10:39 | MHC.RECOVRN ---
Pt accepted to [facility] pending phone screen.
[2024-10-02 11:08] VITALS: BP 135/83; PULSE 80; RESP 16; TEMP 36.7; O2SAT 94
--- NOTE | 2024-10-02 11:10 | PC.NURSE ---
Patient is calm and cooperative, aware of plan of care to go to [facility]
== END 2024-10-02 11:50 | disposition home or self-care (01) ==
PROVIDERS: Emergency Provider Emergency Medicine; PCP Nurse Practitioner Family
DX: F10.20 Alcohol dependence, uncomplicated (principal); Y90.8 Blood alcohol level of 240 mg/100 ml or more; M54.50 Low back pain, unspecified; Z86.718 Personal history of other venous thrombosis and embolism; Z79.01 Long term (current) use of anticoagulants; Z79.899 Other long term (current) drug therapy
CPT/HCPCS: 36415; 74176; 80048; 80076; 80307; 81001; 83690; 83735; 85025; 99284; 99285

== ENCOUNTER 2024-11-30 12:48 | Emergency (ER) | payer MEDICAID, SELFPAY ==
--- NOTE | ~2024-11-30 | XR_ITS ---
CLINICAL HISTORY: pain 3 view, pelvis and right hip Comparison: CT/SR - CT ABDOMEN PELVIS WO IV CON - 10/01/24 16:19 EST CR/SR - XR HIP LT W PEL1V - 06/25/24 13:06 EDT Findings: No acute fracture or dislocation. Bilateral total hip replacement. The soft tissues are unremarkable. IMPRESSION: Right total hip replacement with no acute finding. This document has been electronically signed by: Lilia Myers MD on 11/30/2024 13:41:21
[2024-11-30 12:54] VITALS: BP 140/80; PULSE 98; O2SAT 93
--- NOTE | 2024-11-30 12:56 | ED.ALCOHOL ---
HPI - Alcohol General Chief Complaint: ETOH/Substance Use Stated Complaint: ETOH,HIP PAIN Time Seen by Provider: 11/30/24 12:50 Source: patient and EMS Mode of arrival: EMS Limitations: other (Alcohol intoxication) History of Present Illness HPI narrative: This is a 64 years old patient presented to the emergency department via ambulance with alcohol intoxication history is limited because patient intoxicated. He is complaining of right hip pain. No injury. MD complaint: alcohol intoxication Last drink: Hours (ago) (8) Chronic alcohol use: Yes Previous visits for alcohol intoxication: Yes Recent trauma: No Associated symptoms: other (rt hip pain) Treatments prior to arrival: none Related Data Home Medications ?Medication ?Instructions ?Recorded ?Confirmed acetaminophen 500 mg tablet 500 mg PO Q6H PRN mild pain 08/23/24 10/01/24 naltrexone 50 mg tablet 50 mg PO QAM 08/23/24 10/01/24 apixaban 5 mg tablet (Eliquis) 5 mg PO BID 10/01/24 10/01/24 hydroxyzine HCl 25 mg tablet 25 - 50 mg PO BID PRN Anxiety 10/01/24 10/01/24 nicotine (polacrilex) 4 mg gum 4 mg PO NEEDED 10/01/24 10/01/24 Previous Rx's ?Medication ?Instructions ?Recorded apixaban 5 mg tablet (Eliquis) 5 mg PO BID #30 tabs 10/02/24 Allergies Allergy/AdvReac Type Severity Reaction Status Date / Time pollen extracts [POLLEN] Allergy Unknown UNKNOWN Verified 11/30/24 12:59 Review of Systems ENT: Reports system reviewed and no additional complaints, except as documented Cardiovascular: Cardiovascular: Reports no additional cardiovascular complaints Gastrointestinal: Gastrointestinal: Reports no additional gastrointestinal complaints [facility] Past Medical History Attestation statement: The following information was validated with the patient. [facility] Narrative: Chronic alcohol abuse Medical History DVT (deep venous thrombosis) Alcohol use disorder, moderate, dependence Social History Social History Household Members: None Housing: Apartment Do you presently have visiting nurse or other home services: No Alcohol intake: current Alcohol intake frequency: 3 or more drinks per day Alcohol type: hard liquor Patient Tobacco Use Status: Former Tobacco user Tobacco use type: Cigarette Advance Directives: No Advance Directives Information Provided: No Do you have a plan to hurt others: No Plan service: No Physical Exam ED Vital Signs: Vital Signs - 24 hr 11/30/24 12:58 11/30/24 18:00 11/30/24 18:23 Temperature 98.1 F 98.1 F Pulse Rate 95 95 Respiratory Rate 18 18 18 Blood Pressure 133/90 H 133/90 H Pulse Oximetry 94 94 94 Oxygen Delivery Method Room Air Room Air Room Air BMI result Body Mass Index 26.6 Patient is intoxicated with alcohol lethargic but easily arousable Const General: no acute distress Nutritional Appearance: average body habitus Orientation/consciousness: patient oriented x3 HENMT Head: Yes normal to inspection General nose exam: Normal external nose present Face and sinus: Yes normal facial exam Throat: Yes posterior oropharynx normal Neck Neck: Yes normal visual inspection and Yes full ROM Chest Chest palpation & inspection: normal inspection of the chest Resp Effort & Inspection: normal respiratory effort Auscultation: clear to auscultation bilaterally Cardio Jugular venous distension: no JVD Rate: regular rate Rhythm: regular rhythm GI Inspection: Yes normal to inspection Palpation (GI): Soft to palpation, not firm and nontender Auscultation: normal bowel sounds Skin General skin exam: no rashes or lesions noted Lesions: no lesions Rashes: no rashes Neuro General: patient oriented x3 and CN's II-XI intact bilaterally Course Reevaluation(s) Reevaluation #1: The plan was for him to stay overnight in the ED and perhaps tomorrow detox, but the patient did not want to wait any longer eloped. He was steady on his feet and clinically sober at the time of the elopement,I tried to convince to stay but he left,he was not SI no on section 12,he had decision making capacity assested by me at the time of elopment Time: 18:47 Medical Decision Making Medical Decision Making MDM Narrative: Patient presented intoxicated with alcohol, we will check blood work we will monitor till is sober Differential Diagnosis Differential Diagnoses: The differential diagnosis associated with the presentation includes Alcohol intoxication/electrolytes abnormality Admission/Observation Consideration of admission/observation: Escalation of care including admission/observation considered Lab Data 11/30/24 14:12 11/30/24 14:12 Labs: Lab Results 01/18/25 Range/Units 14:12 WBC 4.1 L (4.8-10.8) X10*3/uL RBC 4.59 L (4.60-5.80) X10*6/uL Hgb 15.0 (14.0-18.0) g/dl Hct 42.3 (42.0-52.0) % MCV 92.2 (80.0-98.0) fL MCH 32.7 (27.0-33.0) pg MCHC 35.5 (31.0-36.0) g/dl RDW 14.2 (11.0-16.0) % Plt Count 250 (160-400) X10*3/uL MPV 7.9 L (9.4-12.4) fL Immature Gran % (Auto) 1.2 H (0.0-0.4) % Neut % (Auto) 66.1 (45-73) % Lymph % (Auto) 23.7 (20-40) % [place] % (Auto) 8.0 (2-11) % Eos % (Auto) 0.0 (0-4) % Baso % (Auto) 1.0 (0-2) % Lymph # (Auto) 1.0 L (1.2-4.9) X10*3/uL [place] # (Auto) 0.3 (0.1-1.2) X10*3/uL Eos # (Auto) 0.0 (0.0-0.4) X10*3/uL Baso # (Auto) 0.0 (0.0-0.2) X10*3/uL Abs Immat Gran (auto) 0.05 H (0.00-0.03) X10*3/uL Absolute Neuts (auto) 2.7 (2.0-8.3) x10*3/uL Absolute Nucleated RBC 0.000 (0.0-0.012) X10*3/uL Nucleated RBC % (auto) 0.0 (0.0-0.2) /100WBC Sodium 146 H (135-145) mmol/L Potassium 4.0 (3.3-5.1) mmol/L Chloride 107 (96-108) mmol/L Carbon Dioxide 29 (22-29) mmol/L Anion Gap 14 (12-20) BUN 21 H (9-16) mg/dL Creatinine 0.93 (0.5-1.4) mg/dL Estim Creat Clear Calc 81.3 Estimated GFR > 60 Random Glucose 95 (60-115) mg/dL Calcium 8.5 D (8.4-10.2) mg/dL Total Bilirubin 0.3 (0.0-1.0) mg/dL AST 28 (5-37) U/L ALT 18 (0-40) U/L Alkaline Phosphatase 46 (39-117) U/L Total Protein 6.7 (6.5-8.0) g/dL Albumin 4.3 (3.5-5.0) g/dL Ethyl Alcohol 356 H* mg/dL Medications Administered Discontinued Medications Generic Name Dose Route Start Last Admin Trade Name Freq PRN Reason Stop Dose Admin Acetaminophen 975 mg 11/30/24 17:46 11/30/24 18:10 Acetaminophen 325 Mg Tablet PO 11/30/24 17:47 975 mg ONCE ONE Administration Discharge Plan Discharge Clinical Impression: Alcohol intoxication Qualifiers: Complication of substance-induced condition: uncomplicated Qualified Code(s): F10.920 - Alcohol use, unspecified with intoxication, uncomplicated Patient Disposition: Elopement Prescriptions: No Action acetaminophen 500 mg tablet 500 mg PO Q6H PRN (Reason: mild pain) naltrexone 50 mg tablet 50 mg PO QAM nicotine (polacrilex) 4 mg gum 4 mg PO NEEDED hydroxyzine HCl 25 mg tablet 25 - 50 mg PO BID PRN (Reason: Anxiety) Eliquis 5 mg tablet 5 mg PO BID Eliquis 5 mg tablet 5 mg PO BID Qty: 30 0RF Interventions: ED Discharge Assessment Last Done: 11/30/24 18:23 Discharge Date/Time: 11/30/24 18:24 Print Language: Frisian
[2024-11-30 12:58] VITALS: BP 133/90; PULSE 95; RESP 18; TEMP 36.7; O2SAT 94; BMI 26.6
[2024-11-30 14:16] LABS: MANUAL DIFF FLAG NO
[2024-11-30 14:17] LABS: Hematocrit 42.3 % (42.0-52.0); Imm Gran Abs Auto 0.05 X10*3/uL (0.00-0.03); Imm Gran Pct Auto 1.2 % (0.0-0.4); Lymphocytes Percent Auto 23.7 % (20-40); Mean Corpuscular HGB Conc 35.5 g/dl (31.0-36.0); Mean Corpuscular Hemoglobin 32.7 pg (27.0-33.0); Mean Corpuscular Volume 92.2 fL (80.0-98.0); Mean Platelet Volume 7.9 fL (9.4-12.4); Monocytes Absolute Auto 0.3 X10*3/uL (0.1-1.2); Neutrophils Absolute Auto 2.7 x10*3/uL (2.0-8.3); Neutrophils Percent Auto 66.1 % (45-73); Platelet Count 250 X10*3/uL (160-400); Red Blood Count 4.59 X10*6/uL (4.60-5.80); Red Cell Distribution Width 14.2 % (11.0-16.0); White Blood Count 4.1 X10*3/uL (4.8-10.8)
[2024-11-30 14:30] LABS: Alanine Aminotransferase 18 U/L (0-40); Albumin Level 4.3 g/dL (3.5-5.0); Alkaline Phosphatase 46 U/L (39-117); Anion Gap 14 (12-20); Aspartate Amino Transferase 28 U/L (5-37); Bilirubin Total 0.3 mg/dL (0.0-1.0); Blood Urea Nitrogen 21 mg/dL (9-16); Calcium 8.5 mg/dL (8.4-10.2); Carbon Dioxide 29 mmol/L (22-29); Chloride 107 mmol/L (96-108); Creatinine Clr Calc Pharmacy 81.3; Estimated Glomerular Filt Rate > 60; Ethanol 356 mg/dL; Glucose Random 95 mg/dL (60-115); Sodium 146 mmol/L (135-145); Total Protein 6.7 g/dL (6.5-8.0)
--- NOTE | 2024-11-30 15:06 | MHC.RECOVRN ---
Attempted to meet with pt after receiving referral for pt seeking ATS. Pt not able to participate in an interview at this time, slurring words, agitated, smelling of alcohol, current BAL is 356.. Pt is also Hard of Hearing and needs his ear pieces charged. Will meet with pt 1st thing tomorrow morning to discuss ATS options and see if pt is willing to go to treatment.
--- NOTE | 2024-11-30 15:45 | PC.NURSE ---
patient resting quietly on stretcher at this time. hearing aides and car keys/belongings at bedside. patient has ambulated to the bathroom, slightly unsteady gait. when awake, patient yelling out for help/yelling at staff to do things for him. able to redirect patient back to bed.
[2024-11-30 18:00] VITALS: RESP 18; O2SAT 94
--- NOTE | 2024-11-30 18:00 | PC.NURSE ---
ambulating independently with steady gait. requesting to be discharged at this time.
[2024-11-30] MEDS: Acetaminophen 325 MG TABLET 975 MG PO (18:10)
[2024-11-30 18:23] VITALS: BP 133/90; PULSE 95; RESP 18; TEMP 36.7; O2SAT 94
== END 2024-11-30 18:24 | disposition left against medical advice (07) ==
PROVIDERS: Emergency Provider Emergency Medicine; PCP Nurse Practitioner Family
DX: F10.129 Alcohol abuse with intoxication, unspecified (principal); Y90.8 Blood alcohol level of 240 mg/100 ml or more; M25.551 Pain in right hip; Z79.899 Other long term (current) drug therapy; Z87.891 Personal history of nicotine dependence; Z51.81 Encounter for therapeutic drug level monitoring
CPT/HCPCS: 36415; 73502; 80053; 80307; 85025; 99284; S9485

== ENCOUNTER 2025-01-14 02:27 | Emergency (ER) | payer MEDICAID, SELFPAY ==
--- NOTE | 2025-01-14 | ECG_ITS ---
Test Reason : ETOH Blood Pressure : */* mmHG Vent. Rate : 91 BPM Atrial Rate : 91 BPM P-R Int : 164 ms QRS Dur : 86 ms QT Int : 392 ms P-R-T Axes : 63 -11 31 degrees QTcB Int : 482 ms Normal sinus rhythm Prolonged QT Abnormal ECG When compared with ECG of 23-Jul-2024 16:36, No significant change was found Referred By: Generic ED Physician Electronically Signed By: ADRIAN GALVAN MD
--- NOTE | ~2025-01-14 | XR_ITS ---
CLINICAL HISTORY: cough 1 view chest x-ray Comparison: CR/SR - XR CHEST 2V - 06/15/24 11:23 EDT Findings: No consolidation or effusion. Prominent cardiac silhouette. No acute fracture. IMPRESSION: 1. No acute findings. This document has been electronically signed by: Sukhwinder Wesley MD on 01/14/2025 03:43:58
[2025-01-14 02:40] VITALS: BP 138/78; BP 150/92; PULSE 108; PULSE 94; RESP 20; TEMP 36.5; O2SAT 94; O2SAT 97; BMI 26.6
[2025-01-14 03:23] LABS: Basophils Percent Auto 0.4 % (0-2); Eosinophils Percent Auto 0.4 % (0-4); Hematocrit 39.1 % (42.0-52.0); Imm Gran Abs Auto 0.07 X10*3/uL (0.00-0.03); Imm Gran Pct Auto 1.3 % (0.0-0.4); Lymphocytes Absolute Auto 1.4 X10*3/uL (1.2-4.9); Lymphocytes Percent Auto 26.2 % (20-40); MANUAL DIFF FLAG NO; Mean Corpuscular HGB Conc 35.8 g/dl (31.0-36.0); Mean Corpuscular Hemoglobin 32.2 pg (27.0-33.0); Mean Corpuscular Volume 89.9 fL (80.0-98.0); Mean Platelet Volume 7.6 fL (9.4-12.4); Monocytes Absolute Auto 0.8 X10*3/uL (0.1-1.2); NRBC Pct Auto 0.5 /100WBC (0.0-0.2); Neutrophils Absolute Auto 3.2 x10*3/uL (2.0-8.3); Neutrophils Percent Auto 57.7 % (45-73); Platelet Count 285 X10*3/uL (160-400); Red Blood Count 4.35 X10*6/uL (4.60-5.80); Red Cell Distribution Width 13.8 % (11.0-16.0); White Blood Count 5.5 X10*3/uL (4.8-10.8)
[2025-01-14 03:32] VITALS: PULSE 90
--- NOTE | 2025-01-14 03:35 | PC.NURSE ---
biba from home reports x3 days of binge drinking pt placed in hospital attire and placed on cardiac monritor
[2025-01-14 03:52] LABS: Alanine Aminotransferase 16 U/L (0-40); Albumin Level 4.1 g/dL (3.5-5.0); Alkaline Phosphatase 53 U/L (39-117); Anion Gap 22 (12-20); Aspartate Amino Transferase 31 U/L (5-37); Bilirubin Total 0.4 mg/dL (0.0-1.0); Blood Urea Nitrogen 19 mg/dL (9-16); Calcium 8.7 mg/dL (8.4-10.2); Carbon Dioxide 19 mmol/L (22-29); Chloride 107 mmol/L (96-108); Creatinine Clr Calc Pharmacy 95.7; Estimated Glomerular Filt Rate > 60; Ethanol 371 mg/dL; Glucose Random 124 mg/dL (60-115); Potassium 3.6 mmol/L (3.3-5.1); Sodium 144 mmol/L (135-145); Total Protein 6.8 g/dL (6.5-8.0)
--- OUTSIDE RECORDS SUMMARY | 2025-01-14 03:56 | XMS_ITS | Encounter Summary ---
Author Organization [employer] Address [address] [place] [address] [address] [place] [address] Care Team Providers Care Envelope Folding Machine Adjuster Name Role Phone Bety Rich COLIN Unavailable Unavailable Jeanne Dickinson Unavailable Winston Philip MD Primary Care Provider + [phone] Encounter Details Date Type Department Care Team (Late st Contact Info) Description 11/07/[address] [phone] Winston Philip MD [address] [place] [address] [phone] Social History Tobacco Use Types Packs/Day Years Used Date Smoking Tobacco: Former Cigarettes Smokeless Tobacco: Never Housing Stability Answer Date Recorded What is your housing situation today? I have mimijarred ramos 12/06/[address] you li ve. Do you have problems with any of the following? None of the above 12/06/2023 Food Insecurity Answer Date Recorded Within the past 12 months, y ou worried that your food would run out before you got money to buy more: Never True 12/06/2023 Within the past 12 months,th e food you bought just didn't last and you didn't have enough money to get more: Never True Transportation Answer Date Recorded In the past 12 months, has l ack of transportation kept you from medical appts, meetings, work or from getting things needed for daily living? No 12/06/2023 Utilities Answer Date Recorded In the past 12 months, has t he electric, gas, oil or water company threatened to shut off services in your home? No 12/06/2023 Depression Answer Date Recorded Patient Health Questionnaire-2 Score 0 12/06/2023 Sex and Gender Information Value Date Recorded Sex Assigned at Male 03/17/2023 8:40 AM EDT Legal Sex Male 6:23 PM EDT Gender Identity Male 09/09/2022 6:23 PM EDT Sexual Orientation Bisexual 09/09/2022 6: 23 PM EDT documented as of this encounter Miscellaneous Notes * Telephone Encounter - Jeanette Quiroz LPN - 11/08/2024 1:08 PM EST Patient telephone number no longer in service. Advised antoine at [facility] to notify pt of need for appt with pcp. * Telephone Encounter - Jeanette Quiroz LPN - 11/07/2024 3:05 PM EST Hx of PE and DVT. Sydnee at [facility] asking how to long to hold the Eliquis before colonoscopy. Please advise. * Telephone Encounter - Vidhya Caban - 11/07/2024 2:15 PM EST Sydnee is a nurse calling from [facility] looking to speak with one of our nurses in regards to patient being on Eliquis 5 MG tablet. Sydnee would like to know when patient should be stopping thismedication as patient is schedule for a colonoscopy on November 15 documented in this encounter Plan of Treatment Upcoming Encounters Date Type Department Care Team (Late st Contact Info) Description 01/29/2025 12:40 PM EDT Office Visit [facility] [address] [place] [phone] Winston Philip MD [address] [place] [phone] documented as of this encounter Visit Diagnoses Not on filedocumented in this encounter Care Teams Envelope Folding Machine Adjuster Relationship Specialty Start Date End Date Winston Philip MD [address] [place] [phone] PCP - General Internal Medicine 10/17/23 Bety Rich FNP Family Medicine 09/09/22 Jeanne Dickinson [address] [place] [id number] 07/31/23 documented as of this encounter
--- OUTSIDE RECORDS SUMMARY | 2025-01-14 03:56 | XMS_ITS | Clinical Summary ---
Author Organization [employer] Address [address] [facility] 7t [place] [address] Care Team Providers Care Assembling Fabricator Name Role Phone Layla Bety SHAW Unavailable Unavailable Jeanne Dickinson Unavailable Winston Philip MD Primary Care Provider + [phone] Allergies Active Allergy Reactions Criticality Noted Date Comments Gramineae Pollens 05/05/2020 Naltrexone Hallucinations 10/11/2021 Medications albuterol 108 (90 Base) MCG/ACT inhaler Inhale 2 puffs every 4 (four) hours if needed for wheezing or shortness of breath. Per [facility] discharge 10/11/20 22 Active acamprosate (Campral) 333 MG EC tablet Take 666 mg by mouth 3 times daily. 12/01/19 23 Active GaviLAX 17 GM/SCOOP powder MIX 17 GRAMS WITH WATER AND DRINK ONCE DAILY 02/07/20 22 Active Senna-Time 8.6 MG tablet TAKE 2 TABLETS BY MOUTH EVERY DAY AT BEDTIME NEEDED FOR CONSTIPATION 02/07/20 22 Active traZODone (Desyrel) 50 MG tablet Take 50 mg by mouth at bedtime. 06/17/20 22 Active atorvastatin (Lipitor) 40 MG tablet Take 1 tablet (40 mg) by mouth at bedtime. 30 tablet 05/11/20 23 Active Additional Information Patient not taking.Reported on 02/14/2024 terbinafine (LamISIL) 250 MG tabletIndications: Onychomycosis TAKE 1 TABLET BY MOUTH IN THE MORNING. RETURN TO CLINIC AFTER 4-6 WEEKS FOR LAB WORK AND REFILL 30 tablet 1 06/13/20 23 Active Additional Information Patient not taking.Reported on 02/14/2024 escitalopram (Lexapro) 10 MG tabletIndications: Mood disorder (CMS/HCC) TAKE 1 TABLET BY MOUTH DAILY 90 tablet 09/22/20 23 Active Additional Information Patient not taking.Reported on 02/14/2024 meloxicam (Mobic) 7.5 MG tabletIndications: Primary localized osteoarthrosis of shoulder region, unspecified laterality TAKE 1 TABLET BY MOUTH EVERY DAY NEEDED FOR PAIN 30 tablet 01/26/20 24 Active cefuroxime (Ceftin) 500 MG tablet Take 500 mg by mouth 2 times daily. 02/09/20 24 Active nicotine (Nicoderm, Step 1) 21 MG/24HR patchIndications:C igarette nicotine dependence without complication APPLY 1 PATCH onto clean, DRY, intact SKIN ONCE A DAY DIRECTED 90 patch 3 02/28/20 24 Active hydrocortisone 1 % creamIndications:R martin,Eczema, unspecified type Apply topically 2 times daily for 14 days. 60 g 2 07/03/20 24 Active Eliquis 5 MG tabletIndications: Recurrent acute deep vein thrombosis (DVT) of lower extremity, unspecified laterality (CMS/HCC),History of blood clots Take 1 tablet (5 mg) by mouth 2 times daily. 180 tablet 3 08/15/20 24 025 Active Multiple Vitamin (multivitamin) capsuleIndications :Thrombocytopenia (CMS/HCC) Take 1 capsule by mouth Once per day. 30 capsule 3 11/18/19 25 025 Active nicotine polacrilex (Nicorette) 4 MG gumIndications:Tob acco dependence syndrome CHEW 1 EACH (4 MG) BY MOUTH IF NEEDED FOR SMOKING CESSATION (MAX 24 PIECES/ DAY). 220 each 3 12/03/19 25 Active nicotine polacrilex (Nicorette) 4 MG gumIndications:Tob acco dependence syndrome Chew 1 each (4 mg) if needed for smoking cessation (max 24 pieces/ day). 100 each 3 12/12/19 25 Active hydrOXYzine HCl (Atarax) 25 MG tablet TAKE 1 OR 2 TABLETS BY MOUTH TWICE DAILY NEEDED 60 tablet 3 12/12/19 25 Active Active Problems Problem Noted Date Diagnosed Date Mixed hyperlipidemia 04/18/2022 Primary localized osteoarthrosis of shoulder reg ion 04/18/2022 Tinnitus 04/18/2022 Nondependent alcohol abuse, episodic drinking be havior 05/05/2020 Tobacco dependence syndrome 05/05/2020 Encounters Date Type Department Care Team Description 01/13/[address] [address] Winston Philip MD 12/23/[address] [address] [place], February Care Management 12/12/[address] [address] Winston Philip MD Tobacco dependence syndrome 12/03/[address] [address] Winston Philip MD Tobacco dependence syndrome 11/08/[address] [address] Winston Philip MD Thrombocytopenia ([facility]) 11/07/[address] [address] Winston Philip MD 11/01/[address] [address] [place], [address] [address] Winston Philip MD Tobacco dependence syndrome 10/17/[address] [address] Chela Hernandez RN Referral ( referral) from Last 3 Months Immunizations Name Administration Dates Next Due Influenza injectable quadriv alent preservative free 08/24/2022 Influenza, IIV3, injectable 07/13/2020,0 11/13/2017,09/23/2016,01/21,10/03/2013,10/18/2012 Moderna Covid-19 Vaccine 12+ 01/08/2024, 11/11/2021,01/26/2021,12/25 Moderna Covid-19 Vaccine 6+ Bivalent 02/09/2023 Pneumococcal Polysaccharide PPSV23 11/29/2016 Td (adult), unspecified 04/21/2019,09/11/2009 Tdap 03/11/2022 Social History Tobacco Use Types Packs/Day Years Used Date Smoking Tobacco: Former Cigarettes Smokeless Tobacco: Never Tobacco Cessation:Counseling Given: Not Answered Housing Stability Answer Date Recorded What is your housing situation today? I have mimi ramos 12/06/[address] you [...] Orientation Bisexual 09/09/2022 6: 23 PM EDT Last Filed Vital Signs Vital Sign Reading Time Taken Comments Blood Pressure 148/88 02/14/2024 8:56 AM EDT Pulse 84 02/14/2024 8:56 AM EDT Temperature 36.3 ??C (97.4 ??F) 02/14/2024 8:56 AM ED T Respiratory Rate - - Oxygen Saturation 95% 02/14/2024 8:56 AM EDT Inhaled Oxygen Concentration - - Weight 78.9 kg (174 lb) 02/14/2024 8:56 AM EDT Height 175.3 cm (5' 9 ) 09/01/2022 2:15 PM EDT Body Mass Index 25.7 09/01/2022 2:15 PM EDT Plan of Treatment Upcoming Encounters Date Type Department Care Team (Late st Contact Info) Description 01/29/2025 12:40 PM EDT Office Visit [address] [phone] Winston Philip MD [address] [place] [phone] Health Maintenance Due Date Last Done Comments CT Colonography 1961 Colonoscopy 1961 Colorectal Cancer Screening 1961 FIT DNA/Cologuard 1961 FIT 1961 FOBT 1961 Sigmoidoscopy 1961 Alcohol/Substance Use Screening 1973 Hepatitis A Vaccines (1 of 2 - Risk 2-dose series) 1980 Zoster Vaccines (1 of 2) 2011 Pneumococcal Vaccine: 50+ Years (2 of 2 - PCV) 11/29/2017 11/29/2016 Tobacco Screening 03/17/2024 03/17/2023 COVID-19 Vaccine ( season) 2024 01/08/2024, 02/09/2023, 11/11/2021, Additional history exists Influenza Vaccine (#1) 2024 , 08/24/2022, 07/13/2020, Additional history exists Depression Screening 12/06/2024 12/06/2023, 12/06/19 24 SDOH Screening 12/06/2024 12/06/2023 Lipid Panel 09/30/2027 09/30/2022, 04/2 07/2022, 05/06/2020 DTaP/Tdap/Td Vaccines (2 - Td or Tdap) 03/11/2032 03/11/2022, 04/21/2019, 09/11/2009 RSV Patients and Patients Aged 60 years or older (1 - 1-dose 75+ series) 2036 HIV Screening Completed 01/08/2024 Hepatitis C Screening Completed 02/14/2024 HIB Vaccines Aged Out No longer eligi ble based on patient's age to complete this topic HPV Vaccines Aged Out No longer eligi ble based on patient's age to complete this topic Hepatitis B Vaccines Aged Out No long er eligible based on patient's age to complete this topic IPV Vaccines Aged Out No longer eligi ble based on patient's age to complete this topic Meningococcal Vaccine Aged Out No andree ryan eligible based on patient's age to complete this topic RSV under 20 months Aged Out No longe r eligible based on patient's age to complete this topic Rotavirus Vaccines Aged Out No longer eligible based on patient's age to complete this topic Procedures Procedure Name Priority Date/Time Associated Diagnosis Comments HEPATITIS PANEL, ACUTE W/REFLEX TO CONFIRMATION Routine 02/14/2024 9:43 AM EDT Abnormal LFTs HIV 1/2 ANTIGEN/ANTIBODY, FOURTH GENERATION W/RFL Routine 01/08/2024 11:56 AM EST Screening examination for infectious disease LIPID PANEL WITH REFLEX TO DIRECT LDL Routine 09/30/2022 1:49 PM EST from Last 3 Months or Most Recently Relevant to Health Maintenance Results * Hepatitis Panel, Acute??with Reflex to??Confirmation (02/14/2024 9:43 AM EDT) Hepatitis A IgM NON-REACT GABRIELLA NON-REACT [employer] Comment: For additional information, please refer to http://ShoeDazzle/faq/NJZ453 (This link is being provided for informational/ educational purposes only.) Hepatitis B Surface Ag NON-REACT GABRIELLA NON-REACT [employer] Comment: For additional information, please refer to http://ShoeDazzle/faq/LBO565 (This link is being provided for informational/ educational purposes only.) Hepatitis B Core Antibody IgM NON-REACT GABRIELLA NON-REACT GABRIELLA [employer] Comment: For additional information, please refer to http://ShoeDazzle/faq/AHZ114 (This link is being provided for informational/ educational purposes only.) Hepatitis C Antibody NON-REACT GABRIELLA NON-REACT [employer] Comment: HCV antibody was non-reactive. There is no laboratory evidence of HCV infection. In most cases, no further action is required. However, if recent HCV exposure is suspected, a test for HCV RNA (test code 11258) is suggested. For additional information please refer to http://ClusterFlunk[employer] Oncology/faq/LMY31h9 (This link is being provided for informational/ educational purposes only.) Blood Venous blood specimen / Unknown 02/14/2024 9:43 AM EDT 02/14/2024 9:44 AM EDT Narrative [facility] - 02/14/2024 11:34 PM EDT FASTING:NO FASTING: NO Winston Philip MD LAB BLOOD ORDERABLES Final R esult [facility] [address], [place] [address] Personal Development [employer] [place] [employer] [address] [place] [address] * HIV-1/2 Antigen and Antibodies, Fourth Generation, with Reflexes (01/08/2024 11:56 AM EST) HIV Antigen/Antibody, 4th Generation NON-REAC TIVE NON-REAC TIVE [employer] [place] [employer] Comment: HIV-1 antigen and HIV-1/HIV-2 antibodies were not detected. There is no laboratory evidence of HIV infection. PLEASE NOTE: This information has been disclosed to you from records whose confidentiality may be protected by state law. ??If your state requires such protection, then the state law prohibits you from making any further disclosure of the information without the specific written consent of the person to whom it pertains, or as otherwise permitted by law. A general authorization for the release of medical or other information is NOT sufficient for this purpose. ?? For additional information please refer to http://ClusterFlunk.Core Oncology/faq/WCU746 (This link is being provided for informational/ educational purposes only.) The performance of this assay has not been clinically validated in patients less than 2 years old. Blood Venous blood specimen / Unknown 01/08/2024 11:56 AM EST 01/08/2024 11:57 AM EST Narrative [facility] - 01/09/2024 11:56 AM EST FASTING:NO FASTING: NO Winston Philip MD LAB BLOOD ORDERABLES Final R esult Performing Organization Address City/[facility]/ZIP Co de Phone Number [facility] [address], [place] [address] Personal Development Bureau [facility] [address] [place] [address] * (ABNORMAL) LIPID PANEL W REFLEX TO DLDL (09/30/2022 1:49 PM EST) Cholesterol, Total 149 (<200) MG/DL CONVERTED LEGACY LABS Triglycerides 235(H) (<150) MG/DL CONVERTED LEGACY LABS HDL Cholesterol 51 (>39) MG/DL CONVERTED LEGACY LABS LDL Cholesterol Calculated 51 (0-130) MG/DL CONVERTED LEGACY LABS Non-HDL Cholesterol 98 (<160) MG/DL CONVERTED LEGACY LABS Chol/HDLC Ratio 2.9 (<5.0) CONV ERTED LEGACY LABS 09/30/2022 1:49 PM EST Maxine Provider LAB BLOOD ORDERABLES [employer] Result Performing Organization Address City/[facility]/ZIP Co de Phone Number CONVERTED LEGACY LABS from Last 3 Months or Most Recently Relevant to Health Maintenance Insurance [facility] C3 * Guarantor: Aneudy Andrade Account Type Relation to Patient Date of Phone Billing Address Dental Self Care Teams Assembling Fabricator Relationship Specialty Start Date End Date Winston Philip MD [address] [place], [place] [phone] PCP - General Internal Medicine 10/17/23 Bety Rich FNP Family Medicine 09/09/22 Jeanne Dickinson [address] [place] [phone] 07/31/23
--- OUTSIDE RECORDS SUMMARY | 2025-01-14 03:56 | XMS_ITS | Encounter Summary ---
Author Organization [employer] Address [address] [facility] [address]t [place] [address] Care Team Providers Care Clinical Auditor Name Role Phone RichBety power COLIN Unavailable Unavailable Jeanne Dickinson Unavailable Winston Philip MD Primary Care Provider + [phone] Reason for Visit * Reason Comments Care Management Encounter Details Date Type Department Care Team ([facility] st Contact Info) Description 12/23/2024 Telephone [facility] [address] [place] [address] BravoFebruary Care Management Social History Tobacco Use Types Packs/Day Years [...] PM EDT documented as of this encounter Progress Notes * Ellie Cordon - 12/23/2024 5:44 PM EST Attached media from the original note were not included. C3 care plan uploaded documented in this encounter Plan of Treatment Upcoming Encounters Date Type Department Care Team (Late st Contact Info) Description 01/29/2025 12:40 PM EDT Office Visit [facility] [address] [place] [phone] Winston Philip MD [address] [place] [address] documented as of this encounter Visit Diagnoses Not on filedocumented in this encounter Care Teams Clinical Auditor Relationship Specialty Start Date End Date Winston Philip MD [address] [place] [address] PCP - General Internal Medicine 10/17/23 Bety Rich FNP Family Medicine 09/09/22 Jeanne Dickinson [address] [place] [address] 07/31/23 documented as of this encounter
--- OUTSIDE RECORDS SUMMARY | 2025-01-14 03:56 | XMS_ITS | Encounter Summary ---
Author Organization [employer] Address [address] [place] [address] 7t [place] [address] Care Team Providers Care Smelter Operator Name Role Phone Bety Rich COLIN Unavailable Unavailable OzAries thompsonna Unavailable Nicolette Donnelly Unavailable [phone] Winston Philip MD Primary Care Provider [phone] Gloria Negrete Unavailable Encounter Details Date Type Department Care Team (Late st Contact Info) Description 04/03/[address] [address] Winston Philip MD [address] [place] [phone] Social History Tobacco Use Types Packs/Day Years Used Date Smoking Tobacco: Former Cigarettes Smokeless Tobacco: Never Housing Stability Answer Date Recorded What is your housing situation today? I have mimi rachel 12/06/[address] you li [...] encounter Miscellaneous Notes * Telephone Encounter - Prabha Lowery - 04/11/2024 2:10 PM EDT LMTCB * Telephone Encounter - Dewayne Quintero - 04/09/2024 11:31 AM EDT Called PT at both numbers listed to find out what script he is questioning. No answer and voicemailisn't set up for PT. * Telephone Encounter - Mare Lopes - 04/09/2024 11:21 AM EDT Calling in with questions about his prescription, didn't leave the name of it on the message. Needsto know if it is 1 pill in the am or if it is 1 in the am and 1 in the pm . Please clarify * Telephone Encounter - Maci Joshua - 04/03/2024 4:18 PM EDT Called home care company back, they just needed to know if he had any upcoming appointments scheduled. I let them know he doesn't currently have anything scheduled. * Telephone Encounter - Ana Lilia Rosenthal - 04/03/2024 4:00 PM EDT Looking for information on last visit. documented in this encounter Plan of Treatment Upcoming Encounters Date Type Department Care Team (Late st Contact Info) Description 01/29/2025 12:40 PM EDT Office Visit [address] [phone] Winston Philip MD [address] [place] [address] documented as of this encounter Visit Diagnoses Not on filedocumented in this encounter Care Teams Smelter Operator Relationship Specialty Start Date End Date Winston Philip MD [address] [place] [address] PCP - General Internal Medicine 10/17/23 Bety Rich FNP Family Medicine 09/09/22 Jeanne Dickinson [address] [place] [address] 07/31/[address] [address] 08/07/23 07/16/24 Gloria Negrete [address] [place] [address] Community Health Worker 02/16/2405/28 documented as of this encounter
--- OUTSIDE RECORDS SUMMARY | 2025-01-14 03:56 | XMS_ITS | Encounter Summary ---
Author Organization [employer] Address [address] [facility] 7t [place] [address] Care Team Providers Care Pinsetter Mechanic Automatic Name Role Phone Bety Rich COLIN Unavailable Unavailable OzAries thompsonna Unavailable Nicolette Donnelly Unavailable [phone] Winston Philip MD Primary Care Provider + [phone] Encounter Details Date Type Department Care Team (Late st Contact Info) Description 06/03/[address] [address] Winston Philip MD [address] [place] [address] Social History Tobacco Use Types Packs/Day Years Used Date Smoking Tobacco: Former Cigarettes Smokeless Tobacco: Never Housing Stability Answer Date Recorded What is your housing situation today? I have mimi sing 12/06/[address] you li [...] the past 12 months, has t he [employer], gas, oil or water company threatened to [...] encounter Miscellaneous Notes * Telephone Encounter - Mare Lopes - 06/03/2024 11:44 AM EDT Faxed in [facility] pcp forms several months ago, she is looking for them to be filled out and faxed back.[phone] documented in this encounter Plan of Treatment Upcoming Encounters Date Type Department Care Team (Late st Contact Info) Description 01/29/2025 12:40 PM EDT Office Visit [facility] [address] [place] [phone] Winston Philip MD [address] [place] [phone] documented as of this encounter Visit Diagnoses Not on filedocumented in this encounter Care Teams Pinsetter Mechanic Automatic Relationship Specialty Start Date End Date Winston Philip MD [address] [place] [phone] PCP - General Internal Medicine 10/17/23 Bety Rich FNP Family Medicine 09/09/22 Jeanne Dickinson [address] [place] [address] 07/31/[address] [address] 08/07/23 07/16/24 documented as of this encounter
--- OUTSIDE RECORDS SUMMARY | 2025-01-14 03:56 | XMS_ITS | Encounter Summary ---
Author Organization [employer] Address [address] [facility] 7t [place] [address] Care Team Providers Care Technical Project Coordinator Name Role Phone Layla Bety SHAW Unavailable Unavailable Jeanne Dickinson Unavailable Winston Philip MD Primary Care Provider + [phone] Encounter Details Date Type Department Care Team (Late st Contact Info) Description 11/01/[address] [facility] [address] [place] [address] February Social History Tobacco Use Types Packs/Day Years [...] PM EDT documented as of this encounter Plan of Treatment Upcoming Encounters Date Type Department Care Team (Late st Contact Info) Description 01/29/2025 12:40 PM EDT Office Visit [facility] [address] [place] [phone] Winston Philip MD [address] [place] [address] documented as of this encounter Visit Diagnoses Not on filedocumented in this encounter Care Teams Technical Project Coordinator Relationship Specialty Start Date End Date Winston Philip MD [address] [place] [address] PCP - General Internal Medicine 10/17/23 Bety Rich FNP Family Medicine 09/09/22 Jeanne Dickinson [address] [place] [address] 07/31/23 documented as of this encounter
--- OUTSIDE RECORDS SUMMARY | 2025-01-14 03:56 | XMS_ITS | Encounter Summary ---
Author Organization [employer] Address [address] [place] [address] [address] [place] [address] Care Team Providers Care Lead Network Engineer Name Role Phone Bety Rich COLIN Unavailable Unavailable Jeanne Dickinson Unavailable Winston Philip MD Primary Care Provider + [phone] Reason for Visit * Reason Onset Date Comments Med Refill 01/13/2025 Encounter Details Date Type Department Care Team (Late st Contact Info) Description 01/13/2025 Refill [facility] [address] [place] [phone] Winston Philip MD [address] [place], [place] [phone] Social History Tobacco Use Types Packs/Day Years [...] t he electric, gas, oil or water [employer] threatened to shut off services in your [...] Description 01/29/2025 12:40 PM EDT Office Visit [facility] [address] [place] [phone] Winston Philip MD [address] [place] [phone] documented as of this encounter Visit Diagnoses Not on filedocumented in this encounter Care Teams Lead Network Engineer Relationship Specialty Start Date End Date Winston Philip MD [address] [place] [phone] PCP - General Internal Medicine 10/17/23 Bety Rich FNP Family Medicine 09/09/22 Jeanne Dickinson [address] [place] [address] 07/31/23 documented as of this encounter
--- OUTSIDE RECORDS SUMMARY | 2025-01-14 03:56 | XMS_ITS | Encounter Summary ---
Author Organization [employer] Address [address] [facility] [address] [place] [address] Care Team Providers Care Clerk Specialist Name Role Phone Bety Rich Unavailable Unavailable Ozjay Jeanne Unavailable Nicolette Donnelly Unavailable [phone] Winston Philip MD Primary Care Provider [phone] Gloria Negrete Unavailable Reason for Visit * Reason Comments Med Refill Encounter Details Date Type Department Care Team (Late st Contact Info) Description 02/10/2024 Refill [facility] [address] [place] [address] Bety Rich FNP Onychomycosis Social History Tobacco Use Types Packs/Day Years [...] t he electric, gas, oil or water [employer] threatened to shut off services in your [...] encounter Miscellaneous Notes * Telephone Encounter - Tiffany Arroyo - 03/15/2024 10:26 AM EDT Faxed again * Telephone Encounter - Mare Lopes - 02/21/2024 2:13 PM EDT Please send a copy of the authorized approval for the referral to [facility], theydo not have it * Telephone Encounter - Winston Philip MD - 02/14/2024 12:14 PM EDT Patient state she does not want the med * Telephone Encounter - Dewayne Quintero - 02/14/2024 8:09 AM EDT PT has appointment with SHAYLEE today. Will address at appointment. * Telephone Encounter - Prabha Lowery - 02/13/2024 11:12 AM EDT No answer, VM full * Telephone Encounter - Prabha Lowery - 02/12/2024 9:49 AM EDT No answer, VM full * Telephone Encounter - Lorene Rivers - 02/12/2024 7:16 AM EDT PCP: Winston Philip MD Last in-person office visit: 01/08/2024 Winston Philip MD Lab Results Component Value Date ALBUMIN 4.6 01/08/2024 ALT 28 01/08/2024 AST 20 01/08/2024 BUN 19 01/08/2024 CL 106 01/08/2024 CO2 27 01/08/2024 CREATININE 0.87 01/08/2024 HDL 51 09/30/2022 HGB 14.7 01/08/2024 HGBA1C 5.8 (H) 09/30/2022 K 4.5 01/08/2024 NA 140 01/08/2024 TRIG 235 (H) 09/30/2022 TSH 2.38 01/08/2024 WBC 4.2 01/08/2024 Future Appointments Date Time Provider Department Center 02/14/2024 9:00 AM Winston Philip MD [facility] Comments: documented in this encounter Plan of Treatment Upcoming Encounters Date Type Department Care Team (Late st Contact Info) Description 01/29/2025 12:40 PM EDT Office Visit [address] [phone] Winston Philip MD [address] [place] [id number] documented as of this encounter Visit Diagnoses Diagnosis Onychomycosis Dermatophytosis of nail documented in this encounter Care Teams Clerk Specialist Relationship Specialty Start Date End Date Winston Philip MD [address] [place] [address] PCP - General Internal Medicine 10/17/23 Bety Rich FNP Family Medicine 09/09/22 Jeanne Dickinson [address] [place] [phone] 07/31/23 [place] [address] [place] [address] 08/07/23 07/16/24 Gloria Negrete [address] [place] [id number] Community Health Worker 02/16/2405/28 documented as of this encounter
--- OUTSIDE RECORDS SUMMARY | 2025-01-14 03:56 | XMS_ITS | Encounter Summary ---
Author Organization [employer] Address [address] [place] [address] [address] [place] [address] Care Team Providers Care Bottom Turning Lathe Tender Name Role Phone Bety Rich COLIN Unavailable Unavailable Jeanne Dickinson Unavailable Winston Philip MD Primary Care Provider + [phone] Encounter Details Date Type Department Care Team (Late st Contact Info) Description 08/27/[address] [phone] Winston Philip MD [address] [place] [phone] Social History Tobacco Use Types Packs/Day Years [...] encounter Miscellaneous Notes * Telephone Encounter - Mallory Mann - 09/02/2024 10:07 AM EDT Faxed meds list to number on file * Telephone Encounter - Mallory Mann - 08/27/2024 9:44 AM EDT LMTCB with number provided to discuss with Rina * Telephone Encounter - Vidhya Caban - 08/27/2024 8:07 AM EDT Rina Sin nurse calling ton confirm patients allergies and is requesting a current med list be faxed to [phone] at attn Rina documented in this encounter Plan of Treatment Upcoming Encounters Date Type Department Care Team (Late st Contact Info) Description 01/29/2025 12:40 PM EDT Office Visit [facility] [address] [place] [phone] Winston Philip MD [address] [place] [phone] documented as of this encounter Visit Diagnoses Not on filedocumented in this encounter Care Teams Bottom Turning Lathe Tender Relationship Specialty Start Date End Date Winston Philip MD [address] [place] [phone] PCP - General Internal Medicine 10/17/23 Bety Rich FNP Family Medicine 09/09/22 Jeanne Dickinson [address] [place] [address] 07/31/23 documented as of this encounter
--- OUTSIDE RECORDS SUMMARY | 2025-01-14 03:56 | XMS_ITS | Data Portability ---
Author Organization [facility], , [facility] Address [address] [place] [address] Care Team Providers Care Cultural Centre Manager Name Role Phone FRANKY ALFARO Primary Care Provider Assessment Encounter Date Assessment Date Assessment LastModified by Organization Details LastModified Time 12/25/2017 12/25/2017 re homelessness and letter for housing: I asked pt to get more details as to what's being requested of me. I will write a letter as needed within limitations of what I can say truthfully. lisa Not available 12/25/2017 13:20:46 Plan of Treatment Reminders Order Date Submit Date Provider Last Modified By Organization Details Last Modified Time Details Appointments None recorded. Lab hepatitis C virus Ab, serum 2016 017 [facility], [address] [place] [address], [address], 7 15:20:13 lyme disease igg+igm Ab, serum 2016 017 [facility], [address] [place] [address], [address], 7 15:54:51 glucose, QN [mass/vol ume], serum or plasma 2016 017 [facility], [address] [place] [address], [address], 7 15:19:56 drug of abuse panel, urine 2016 017 [facility], [address] [place] [address], [address], 7 16:31:57 drug of abuse panel, urine 2016 017 [facility], [address] [facility], [place], [address], 7 16:46:16 Referral orthopedi c referral - L shoulder injured in a fall 10/13, suspect RC tear requiring surgery, please eval/xray s done 7 [facility] [place] 10:15 am Beverly, arrive 10:00 am 2016 017 LALO Paul MD, [address] [place], [address], 8 05:00:44 Procedures colonosco py procedure (PROC) - at [facility] please. Last in [address] Felipe who recommend ed repeat in 1 year. Call pt at cell. Monday is best day to contact him. 2016 017 [facility], [address] [facility], [place], [address], 7 07:44:48 Surgeries None recorded. Imaging None recorded. Medication Orders Nicoderm CQ 7 mg/24 hr daily transderm al patch 2017 018 [facility], [address], [address], [place], [address], 8 13:17:37 Nicoderm CQ 14 mg/24 hr daily transderm al patch 2017 018 [facility], [address], [place], [address], 8 13:17:37 Eliquis 5 mg tablet 2017 018 INTERFACE [facility], [address], [place], [address], 8 13:17:39 acamprosa te 333 mg tablet,de layed release 2016 017 [facility], [address], [place], [id number], 7 08:00:41 trazodone 100 mg tablet 2016 017 [facility] #58606, [address], [place], [id number], 7 08:00:41 nicotine 14 mg/24 hr daily transderm al patch 2016 017 [facility]66335, [address], [place], [id number], 7 07:24:56 Nicorette 4 mg gum 2016 017 [facility]49, [address] [place], [place], [id number], 7 13:52:44 Vivitrol 380 mg intramusc ular suspensio n,extende d release 2016 017 [facility]71992, [address], [place], [id number], 7 07:28:38 Vivitrol 380 mg intramusc ular suspensio n,extende d release 2016 017 [facility]25134, [address], [place], [id number], 7 07:28:38 Vivitrol 380 mg intramusc ular suspensio n,extende d release 2016 017 [facility] #00866, [address], [place], [id number], 7 07:28:38 Patient TargetsNo targets recorded. Patient Instructions Encounter Date Encounter Id Patient Instructions Last Modified By Organization Details Last Modified Time 04/07/2017 [id number] Well Visit 50 to 65: Care Instructions rcarriere Not available 04/07/2017 13:40:04 Reason for Referral Orthopedic Referral for Part ial thickness rotator cuff tear L shoulder injured in a fall 10/13, suspect RC tear requiring surgery, please eval/xrays done 10/17/2017 [facility] [place]December 10:15 am Beverly, arrive 10:00 am Referring Physician: Gen Aldana, Family Medicine, Encounter Date: 10/24/2017 Results Created Date Observation Date Name Description Value Unit Range Abnormal Flag Note LastModifiedBy Organization Detail LastModifiedTime 04/03/20 17 04/03/2017 drug of abuse panel , urine Amphetamine negati ve Not Available [address], [address], 04/03/2017 13:14:04/03/20 17 04/03/2017 drug of abuse panel , urine Barbiturates negati ve Not Available [address], [address], 04/03/2017 13:14:04/03/20 17 04/03/2017 drug of abuse panel , urine Benzodiazepi rivas negati ve Not Available [address], [address], 04/03/2017 13:14:26 04/03/20 17 04/03/2017 drug of abuse panel , urine Cocaine negati ve Not Available [address], [address], 04/03/2017 13:14:26 04/03/20 17 04/03/2017 drug of abuse panel , urine Ecstasy negati ve Not Available [address], [address], 04/03/2017 13:14:04/03/20 17 04/03/2017 drug of abuse panel , urine Marijuana negati ve Not Available [address], [address], 04/03/2017 13:14:26 04/03/20 17 04/03/2017 drug of abuse panel , urine Methadone negati ve Not Available [address], [address], 04/03/2017 13:14:26 04/03/20 17 04/03/2017 drug of abuse panel , urine Metamphetami ne negati ve Not Available [address], [address], 04/03/2017 13:14:26 04/03/20 17 04/03/2017 drug of abuse panel , urine Opiates negati ve Not Available [address], [address], 04/03/2017 13:14:26 04/03/20 17 04/03/2017 drug of abuse panel , urine [id number] negati ve Not Available [address], [address], 04/03/2017 13:14:26 04/03/20 17 04/03/2017 drug of abuse panel , urine Oxycodone negati ve Not Available [address], [address], 04/03/2017 13:14:26 04/03/20 17 04/03/2017 drug of abuse panel , urine PCP negati ve Not Available [address], [address], 04/03/2017 13:14:26 04/03/20 17 04/03/2017 drug of abuse panel , urine Tricyclic Antidepressa nts negati ve Not Available [address], [address], 04/03/2017 13:14:26 03/07/20 17 03/07/2017 drug of abuse panel , urine Amphetamine negati ve Not Available [address], [address], 03/07/2017 13:16:54 03/07/20 17 03/07/2017 drug of abuse panel , urine Barbiturates negati ve Not Available [address], [address], 03/07/2017 13:16:54 03/07/20 17 03/07/2017 drug of abuse panel , urine Benzodiazepi rivas negati ve Not Available [address], [address], 03/07/2017 13:16:54 03/07/20 17 03/07/2017 drug of abuse panel , urine Cocaine negati ve Not Available [address], [address], 03/07/2017 13:16:54 03/07/20 17 03/07/2017 drug of abuse panel , urine Ecstasy negati ve Not Available [address], [address], 03/07/2017 13:16:54 03/07/20 17 03/07/2017 drug of abuse panel , urine Marijuana negati ve Not Available [address], [address], 03/07/2017 13:16:54 03/07/20 17 03/07/2017 drug of abuse panel , urine Methadone negati ve Not Available [address], [address], 03/07/2017 13:16:54 03/07/20 17 03/07/2017 drug of abuse panel , urine Metamphetami ne negati ve Not Available [address], [address], 03/07/2017 13:16:54 03/07/20 17 03/07/2017 drug of abuse panel , urine Opiates negati ve Not Available [address], [address], 03/07/2017 13:16:54 03/07/20 17 03/07/2017 drug of abuse panel , urine [id number] negati ve Not Available [address], [address], 03/07/2017 13:16:54 03/07/20 17 03/07/2017 drug of abuse panel , urine Oxycodone negati ve Not Available [address], [address], 03/07/2017 13:16:54 03/07/20 17 03/07/2017 drug of abuse panel , urine PCP negati ve Not Available [address], [address], 03/07/2017 13:16:54 03/07/20 17 03/07/2017 drug of abuse panel , urine Tricyclic Antidepressa nts negati ve Not Available [address], [address], 03/07/2017 13:16:54 02/08/20 17 02/07/2017 drug of abuse panel , urine Amphetamine negati ve Not Available [address], [address], 02/07/2017 14:51:39 02/08/20 17 02/07/2017 drug of abuse panel , urine Barbiturates negati ve Not Available [address], [address], 02/07/2017 14:51:39 02/08/20 17 02/07/2017 drug of abuse panel , urine Benzodiazepi rivas negati ve Not Available [address], [address], 02/07/2017 14:51:39 02/08/20 17 02/07/2017 drug of abuse panel , urine Cocaine negati ve Not Available [address], [address], 02/07/2017 14:51:39 02/08/20 17 02/07/2017 drug of abuse panel , urine Ecstasy negati ve Not Available [address], [address], 02/07/2017 14:51:39 02/08/20 17 02/07/2017 drug of abuse panel , urine Marijuana negati ve Not Available [address], [address], 02/07/2017 14:51:39 02/08/20 17 02/07/2017 drug of abuse panel , urine Methadone negati ve Not Available [address], [address], 02/07/2017 14:51:39 02/08/20 17 02/07/2017 drug of abuse panel , urine Metamphetami ne negati ve Not Available [address], [address], 02/07/2017 14:51:39 02/08/20 17 02/07/2017 drug of abuse panel , urine Opiates negati ve Not Available [address], [address], 02/07/2017 14:51:39 02/08/20 17 02/07/2017 drug of abuse panel , urine [id number] negati ve Not Available [address], [address], 02/07/2017 14:51:39 02/08/20 17 02/07/2017 drug of abuse panel , urine Oxycodone negati ve Not Available [address], [address], 02/07/2017 14:51:39 02/08/20 17 02/07/2017 drug of abuse panel , urine PCP negati ve Not Available [address], [address], 02/07/2017 14:51:39 02/08/20 17 02/07/2017 drug of abuse panel , urine Tricyclic Antidepressa nts negati ve Not Available [address], [address], 02/07/2017 14:51:39 04/03/20 17 04/04/2017 lipid panel , serum cholesterol 223 mg/dL <200 mg/dl Matthias able 200-2 39 mg/dl Borde rline High >240 mg/dl High Not Available [address], [address], 04/04/2017 08:19:30 04/03/2004/04/2017 lipid panel , serum triglyceride s 139 mg/dL <150 mg/dL Belle l 150-1 99 mg/dL Borde rline High 200-4 99 mg/dL High >500 mg/dL Very High Not Available [address], [address], 04/04/2017 08:19:30 04/03/2004/04/2017 lipid panel , serum direct HDL 54 mg/dL Not Available [address], [address], 04/04/2017 08:19:30 04/03/2004/04/2017 LDL, calcu milagrosd , serum (OBS) LDL - calculated 141.2 RISK CATEG ORY LDL GOAL _ CHD or CHD Risk Equiv alent s <100 mg/dl (10-y ear risk >20%) 2+ Risk Facto rs <130 mg/dl (10-y ear risk <= 20%) 0-1 Risk Facto r? <160 mg/dl ? Almos t all peopl e with 0-1 risk facto r have a 10 year risk <10%, thus 10 year risk asses ment in peopl e with 0-1 risk facto r is not neces francisca. Not Available [address], [address], 04/04/2017 08:19:30 04/03/2004/08/2017 hepat itis C virus Ab, serum hepatitis C antibody NON-RE ACTIVE non-re active normal Not Available [employer] [facility] [address], [address], 04/08/2017 07:40:58 04/03/20 17 04/08/2017 hepat itis C virus Ab, serum signal to cut-off 0.01 <1.00 normal Not Available [facility] [address], [place], [address], 04/08/2017 07:40:58 04/03/20 17 04/11/2017 gluco se, QN [mass /volu me], serum or plasm a glucose 100 mg/dL 70-100 Not Available [facility] [address], [place], [address], 04/11/2017 10:02:59 07/08/20 20 07/08/2020 CBC w/ auto diff WBC 10.40 K/uL 4.00-1 1.00 Note Refer ence Range updat es to all CBC and Diffe liset al resul ts. Not Available [facility] [address] [place] [address], [address], 07/08/2020 16:25:56 07/08/20 20 07/08/2020 CBC w/ auto diff RBC 4.95 M/uL 3.90-5 .69 Not Available [facility] [address] [place] [address], [address], 07/08/2020 16:25:56 07/08/20 20 07/08/2020 CBC w/ auto diff HGB 16.1 g/dL 12.4-1 7.3 Note updat ed Refer ence Range s for all CBC and Diffe liset al resul ts. Not Available [facility]) [address] [place] [address], [address], 07/08/2020 16:25:56 07/08/20 20 07/08/2020 CBC w/ auto diff HCT 45.8 % 37.0-5 1.0 Not Available [facility] [address] [place] [address], [address], 07/08/2020 16:25:56 07/08/20 20 07/08/2020 CBC w/ auto diff plt 305 K/uL 140-43 0 Not Available [facility]) [address] [place], [address], 07/08/2020 16:25:56 07/08/20 20 07/08/2020 CBC w/ auto diff MCV 92.5 fL 78.0-9 7.0 Not Available [facility] [address] [place], [address], 07/08/2020 16:25:56 07/08/20 20 07/08/2020 CBC w/ auto diff MCH 32.5 pg 25.0-3 3.0 Not Available [facility] [address] [place], [address], 07/08/2020 16:25:56 07/08/20 20 07/08/2020 CBC w/ auto diff MCHC 35.2 g/dL 32.0-3 6.0 Not Available [facility] [address] [place], [address], 07/08/2020 16:25:56 07/08/20 20 07/08/2020 CBC w/ auto diff RDW 13.2 % 11.0-1 5.0 Not Available [facility] [address] [place], [address], 07/08/2020 16:25:56 07/08/20 20 07/08/2020 CBC w/ auto diff MPV 8.5 fL 8.4-12 .8 Not Available [facility] [address] [place], [address], 07/08/2020 16:25:56 07/08/20 20 07/08/2020 CBC w/ auto diff NRBC 0.00 /100_ WBCs 0 Not Available [facility] [address] [place], [address], 07/08/2020 16:25:56 07/08/20 20 07/08/2020 CBC w/ auto diff absolute NRBC 0.00 K/uL 0 Not Available [facility] [address] [place], [address], 07/08/2020 16:25:56 07/08/20 20 07/08/2020 CBC w/ auto diff diff method Auto Not Available [facility] [address] [place], [address], 07/08/2020 16:25:56 07/08/20 20 07/08/2020 CBC w/ auto diff neuts 87.2 % 43.0-7 5.0 high Not Available [facility] [address] [place], [address], 07/08/2020 16:25:56 07/08/20 20 07/08/2020 CBC w/ auto diff lymphs 5.4 % 18.2-4 7.4 low Not Available [facility] [address] [place], [address], 07/08/2020 16:25:56 07/08/20 20 07/08/2020 CBC w/ auto diff monos 6.7 % 4.00-1 1.00 Not Available [facility] [address] [place], [address], 07/08/2020 16:25:56 07/08/20 20 07/08/2020 CBC w/ auto diff eos 0.1 % 0.0-8. 0 Not Available [facility] [address] [place], [address], 07/08/2020 16:25:56 07/08/20 20 07/08/2020 CBC w/ auto diff basos 0.3 % 0.0-2. 0 Not Available [facility] [address] [place], [address], 07/08/2020 16:25:56 07/08/20 20 07/08/2020 CBC w/ auto diff granulocytes , immature (%) 0.3 % 0.0-0. 9 Not Available [facility] [address] [place], [address], 07/08/2020 16:25:56 07/08/20 20 07/08/2020 CBC w/ auto diff absolute neuts 9.07 K/uL 1.80-7 .70 high Not Available [facility] [address] [place], [address], 07/08/2020 16:25:56 07/08/20 20 07/08/2020 CBC w/ auto diff absolute lymphs 0.56 K/uL 1.00-3 .10 low Not Available [facility] [address] [place], [address], 07/08/2020 16:25:56 07/08/20 20 07/08/2020 CBC w/ auto diff absolute monos 0.70 K/uL 0.20-0 .80 Not Available [facility] [address] [place], [address], 07/08/2020 16:25:56 07/08/20 20 07/08/2020 CBC w/ auto diff absolute eos 0.01 K/uL 0.00-0 .80 Not Available [facility] [address] [place], [address], 07/08/2020 16:25:56 07/08/20 20 07/08/2020 CBC w/ auto diff absolute basos 0.03 K/uL 0.00-0 .09 Not Available [facility] [address] [place], [address], 07/08/2020 16:25:56 07/08/20 20 07/08/2020 CBC w/ auto diff granulocytes , immature 0.03 K/uL 0.00-0 .05 Not Available [facility] [address] [place], [address], 07/08/2020 16:25:56 07/08/20 20 07/08/2020 urina lysis , refle x cultu re color Yellow yellow Not Available [facility] [address] [place], [address], 07/08/2020 16:26:04 07/08/20 20 07/08/2020 urina lysis , refle x cultu re clarity Clear Not Available [facility] [address] [place], [address], 07/08/2020 16:26:04 07/08/20 20 07/08/2020 urina lysis , refle x cultu re glucose Negati ve negati ve Not Available [facility] [address] [place], [address], 07/08/2020 16:26:04 07/08/20 20 07/08/2020 urina lysis , refle x cultu re bili Negati ve negati ve Not Available [facility] [address] [place], [address], 07/08/2020 16:26:04 07/08/20 20 07/08/2020 urina lysis , refle x cultu re ketones 1+ negati ve abnormal Not Available [facility] [address] [place], [address], 07/08/2020 16:26:04 07/08/20 20 07/08/2020 urina lysis , refle x cultu re specific gravity 1.025 1.005- 1.030 Not Available [facility] [address] [place], [address], 07/08/2020 16:26:04 07/08/20 20 07/08/2020 urina lysis , refle x cultu re blood Negati ve negati ve Not Available [facility] [address] [place], [address], 07/08/2020 16:26:04 07/08/20 20 07/08/2020 urina lysis , refle x cultu re pH 6.0 5.0-8. 0 Not Available [facility] [address] [place], [address], 07/08/2020 16:26:04 07/08/20 20 07/08/2020 urina lysis , refle x cultu re protein Trace negati ve abnormal Not Available [facility] [address] [place], [address], 07/08/2020 16:26:04 07/08/20 20 07/08/2020 urina lysis , refle x cultu re nitrite Negati ve negati ve Not Available [facility] ([facility] [address] [place], [address], 07/08/2020 16:26:04 07/08/20 20 07/08/2020 urina lysis , refle x cultu re leukocyte esterase, ur Negati ve negati ve Not Available [facility] [address] [place], [address], 07/08/2020 16:26:04 07/08/20 20 07/08/2020 BMP, blood sodium 138 mmol/ L 133-14 6 Not Available [facility] [address] [place], [address], 07/08/2020 16:57:39 07/08/20 20 07/08/2020 BMP, blood chloride 100 mmol/ L 96-108 Not Available [facility] [address] [place], [address], 07/08/2020 16:57:39 07/08/20 20 07/08/2020 BMP, blood potassium 4.8 mmol/ L 3.3-5. 1 Not Available [facility] [address] [place], [address], 07/08/2020 16:57:39 07/08/20 20 07/08/2020 BMP, blood CO2 26 mmol/ L 21-35 Not Available [facility] [address] [place], [address], 07/08/2020 16:57:39 07/08/20 20 07/08/2020 BMP, blood BUN 18 mg/dL 6-19 Not Available [facility] [address] [place], [address], 07/08/2020 16:57:39 07/08/20 20 07/08/2020 BMP, blood creatinine 0.90 mg/dL 0.5-1. 5 Not Available [facility] [address] [place], [address], 07/08/2020 16:57:39 07/08/20 20 07/08/2020 BMP, blood glucose 135 mg/dL 70-99 high Not Available [facility] [address] [place], [address], 07/08/2020 16:57:39 07/08/20 20 07/08/2020 BMP, blood calcium 9.9 mg/dL 8.4-10 .3 Not Available [facility] [address] [place], [address], 07/08/2020 16:57:39 07/08/20 20 07/08/2020 BMP, blood eGFR 94 mL/mi n/1.7 3m2 >59 Estim ated glome rular filtr ation rate calcu lated using the CKD-E PI equat ion. Not Available [facility] [address] [place], [address], 07/08/2020 16:57:39 07/08/20 20 07/08/2020 BMP, blood anion gap 17 mmol/ L 10-20 Not Available [facility] [address] [place], [address], 07/08/2020 16:57:39 07/08/20 20 07/08/2020 lipas e, serum or plasm a lipase 20 U/L 16-63 Not Available [facility] [address] [place], [address], 07/08/2020 16:57:41 07/08/20 20 07/08/2020 lfts (hepa tic panel ) alkaline phosphatase 50 U/L 39-117 Not Available [facility] [address] [place], [address], 07/08/2020 16:57:42 07/08/20 20 07/08/2020 lfts (hepa tic panel ) total bilirubin 0.5 mg/dL 0.0-1. 2 Not Available [facility] [address] [place], [address], 07/08/2020 16:57:42 07/08/20 20 07/08/2020 lfts (hepa tic panel ) direct bilirubin <0.2 mg/dL 0-0.3 Not Available [facility] [address] [place], [address], 07/08/2020 16:57:42 07/08/20 20 07/08/2020 lfts (hepa tic panel ) bilirubin (indirect) NOT CALCUL ATED mg/dL 0-1.5 Not Available [facility] [address] [place], [address], 07/08/2020 16:57:42 07/08/20 20 07/08/2020 lfts (hepa tic panel ) AST 21 U/L 0-37 Not Available [facility] [address] [place], [address], 07/08/2020 16:57:42 07/08/20 20 07/08/2020 lfts (hepa tic panel ) ALT 17 U/L 0-40 Not Available [facility] [address] [place], [address], 07/08/2020 16:57:42 07/08/20 20 07/08/2020 lfts (hepa tic panel ) total protein 7.3 g/dL 6.5-8. 0 Not Available [facility] ([facility]) [address] [place], [address], 07/08/2020 16:57:42 07/08/20 20 07/08/2020 lfts (hepa tic panel ) albumin 5.0 g/dL 3.9-4. 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 support manager-P CR, respi rator y speci men covid-19 source NASAL SWAB Not Available [facility] [address] [place], [address], 07/08/2020 21:21:18 07/08/20 20 07/08/2020 SARS CoV 2 RNA (COVI D-19) , QL, operations support manager-P CR, respi rator y speci men covid testing status In-mimi se testin g being perfor med Not Available [facility] ([facility]) [address] [place], [address], 07/08/2020 21:21:18 07/08/20 20 07/08/2020 SARS CoV 2 RNA (COVI D-19) , QL, operations support manager-P CR, respi rator y speci men specimen source NASAL Not Available [facility] [address] [place], [address], 07/08/2020 21:43:36 07/08/20 20 07/08/2020 SARS CoV 2 RNA (COVI D-19) , QL, operations support manager-P CR, respi rator y speci men sars-cov-2 result Negati ve negati ve Negat juve resul ts do not precl ude SARS- CoV-2 infec tion and shoul d not be used as the sole basis for patie nt manag ement decis ions. Negat juve resul ts must be combi jennifer with clini lydia obser vatio ns, patie nt histo ry, and epide miolo gical infor matio n. Testi ng was perfo rmed using the [employer]bot t ID NOW COVID -19 assay perfo rmed on the [employer]bot t ID NOW Instr ument . Fact sheet s for this Emerg ency Use Autho rizat ion can be found at the [employer] links : For Healt hcare Provi ders: https ://ww w.fda .gov/ media /4398 23/do wnloa d For Patie nts: https ://ww w.fda .gov. media /1365 24/do wnloa d. Not Available [facility] [address] [place], [address], 07/08/2020 21:43:36 07/09/20 20 07/09/2020 CBC WBC 5.08 K/uL 4.00-1 1.00 Note Refer ence Range updat es to all CBC and Melanye liset al resul ts. Not Available [facility] [address] [place], [address], 07/09/2020 05:54:49 07/09/20 20 07/09/2020 CBC RBC 4.05 M/uL 3.90-5 .69 Not Available [facility] [address] [place], [address], 07/09/2020 05:54:49 07/09/20 20 07/09/2020 CBC HGB 13.2 g/dL 12.4-1 7.3 Note updat ed Refer ence Range s for all CBC and Melanye liset al resul ts. Not Available [facility] [address] [place], [address], 07/09/2020 05:54:49 07/09/2007/09/2020 CBC HCT 37.7 % 37.0-5 1.0 Not Available [facility] [address] [place], [address], 07/09/2020 05:54:49 07/09/2007/09/2020 CBC plt 259 K/uL 140-43 0 Not Available [facility] [address] [place], [address], 07/09/2020 05:54:49 07/09/2007/09/2020 CBC MCV 93.1 fL 78.0-9 7.0 Not Available [facility] ([facility] [address] [place], [address], 07/09/2020 05:54:49 07/09/2007/09/2020 CBC MCH 32.6 pg 25.0-3 3.0 Not Available [facility] [address] [place], [address], 07/09/2020 05:54:49 07/09/20 20 07/09/2020 CBC MCHC 35.0 g/dL 32.0-3 6.0 Not Available [facility] ([facility]patient) [address] [place] [address], [address], 07/09/2020 05:54:49 07/09/20 20 07/09/2020 CBC RDW 13.2 % 11.0-1 5.0 Not Available [facility] ([facility]patient) [address] [place] [address], [address], 07/09/2020 05:54:49 07/09/20 20 07/09/2020 CBC MPV 8.5 fL 8.4-12 .8 Not Available [facility] (Outpatient) [address] [place] [address], [address], 07/09/2020 05:54:49 07/09/20 20 07/09/2020 CBC NRBC 0.00 /100_ WBCs 0 Not Available [facility] (Outpatient) [address] [place] [address], [address], 07/09/2020 05:54:49 07/09/2007/09/2020 CBC absolute NRBC 0.00 K/uL 0 Not Available [facility] (Outpatient) [address] [place] [address], [address], 07/09/2020 05:54:49 07/09/2007/09/2020 BMP, blood sodium 140 mmol/ L 133-14 6 Not Available [facility] (Outpatient) [address] [place] [address], [address], 07/09/2020 06:26:39 07/09/2007/09/2020 BMP, blood chloride 104 mmol/ L 96-108 Not Available [facility] (Outpatient) [address] [place] [address], [address], 07/09/2020 06:26:39 07/09/2007/09/2020 BMP, blood potassium 4.1 mmol/ L 3.3-5. 1 Not Available [facility] ([facility]patient) [address] [place], [address], 07/09/2020 06:26:39 07/09/20 20 07/09/2020 BMP, blood CO2 27 mmol/ L 21-35 Not Available [facility] ([facility]patient) [address] [place], [address], 07/09/2020 06:26:39 07/09/20 20 07/09/2020 BMP, blood BUN 17 mg/dL 6-19 Not Available [facility] ([facility]patient) [address] [place], [address], 07/09/2020 06:26:39 07/09/20 20 07/09/2020 BMP, blood creatinine 0.90 mg/dL 0.5-1. 5 Not Available [facility] ([facility]patient) [address] [place], [address], 07/09/2020 06:26:39 07/09/20 20 07/09/2020 BMP, blood glucose 142 mg/dL 70-99 high Not Available [facility] ([facility]patient) [address] [place], [address], 07/09/2020 06:26:39 07/09/20 20 07/09/2020 BMP, blood calcium 8.7 mg/dL 8.4-10 .3 Not Available [facility] ([facility]patient) [address] [place], [address], 07/09/2020 06:26:39 07/09/20 20 07/09/2020 BMP, blood eGFR 94 mL/mi n/1.7 3m2 >59 Estim ated glome rular filtr ation rate calcu lated using the CKD-E PI equat ion. Not Available [facility] (Outpatient) [address] [place] [address], [address], 07/09/2020 06:26:39 07/09/2007/09/2020 BMP, blood anion gap 13 mmol/ L 10-20 Not Available [facility] (Outpatient) [address] [place], [address], 07/09/2020 06:26:39 07/09/20 20 07/09/2020 magne sium, QN, serum or plasm a magnesium 2.1 mg/dL 1.6-2. 6 Not Available [facility] (Outpatient) [address] [place], [address], 07/09/2020 06:26:40 07/09/20 20 07/09/2020 phosp horus , serum or plasm a phosphorus 4.0 mg/dL 2.7-4. 5 Not Available [facility] (Outpatient) [address] [place], [address], 07/09/2020 06:26:41 07/10/20 20 07/10/2020 CBC w/ auto diff WBC 2.78 K/uL 4.00-1 1.00 low Note Refer ence Range updat es to all CBC and Diffe renti al resul ts. Not Available [facility] ([facility]) [address] [place] [address], [address], 07/10/2020 06:04:03 07/10/20 20 07/10/2020 CBC w/ auto diff RBC 3.95 M/uL 3.90-5 .69 Not Available [facility] (Outpatient) [address] [place] [address], [address], 07/10/2020 06:04:03 07/10/20 20 07/10/2020 CBC w/ auto diff HGB 12.7 g/dL 12.4-1 7.3 Note updat ed Refer ence Range s for all CBC and Diffe renti al resul ts. Not Available [facility] ([facility]) [address] [place], [address], 07/10/2020 06:04:03 07/10/20 20 07/10/2020 CBC w/ auto diff HCT 37.1 % 37.0-5 1.0 Not Available [facility] ([facility]) [address] [place], [address], 07/10/2020 06:04:03 07/10/20 20 07/10/2020 CBC w/ auto diff plt 238 K/uL 140-43 0 Not Available [facility] ([facility]) [address] [place], [address], 07/10/2020 06:04:03 07/10/20 20 07/10/2020 CBC w/ auto diff MCV 93.9 fL 78.0-9 7.0 Not Available [facility] ([facility]) [address] [place], [address], 07/10/2020 06:04:03 07/10/20 20 07/10/2020 CBC w/ auto diff MCH 32.2 pg 25.0-3 3.0 Not Available [facility] ([facility]) [address] [place], [address], 07/10/2020 06:04:03 07/10/20 20 07/10/2020 CBC w/ auto diff MCHC 34.2 g/dL 32.0-3 6.0 Not Available [facility] ([facility]) [address] [place], [address], 07/10/2020 06:04:03 07/10/20 20 07/10/2020 CBC w/ auto diff RDW 13.1 % 11.0-1 5.0 Not Available [facility] ([facility]) [address] [place], [address], 07/10/2020 06:04:03 07/10/2007/10/2020 CBC w/ auto diff MPV 8.6 fL 8.4-12 .8 Not Available [facility] ([facility]) [address] [place], [address], 07/10/2020 06:04:03 07/10/20 20 07/10/2020 CBC w/ auto diff NRBC 0.00 /100_ WBCs 0 Not Available [facility] ([facility]) [address] [place], [address], 07/10/2020 06:04:03 07/10/20 20 07/10/2020 CBC w/ auto diff absolute NRBC 0.00 K/uL 0 Not Available [facility] ([facility]) [address] [place], [address], 07/10/2020 06:04:03 07/10/20 20 07/10/2020 CBC w/ auto diff diff method Auto Not Available [facility] ([facility]) [address] [place], [address], 07/10/2020 06:04:03 07/10/20 20 07/10/2020 CBC w/ auto diff neuts 49.3 % 43.0-7 5.0 Not Available [facility] ([facility]) [address] [place], [address], 07/10/2020 06:04:03 07/10/20 20 07/10/2020 CBC w/ auto diff lymphs 33.1 % 18.2-4 7.4 Not Available [facility] ([facility]) [address] [place], [address], 07/10/2020 06:04:03 07/10/20 20 07/10/2020 CBC w/ auto diff monos 11.2 % 4.00-1 1.00 high Not Available [facility] ([facility]) [address] [place], [address], 07/10/2020 06:04:03 07/10/20 20 07/10/2020 CBC w/ auto diff eos 5.0 % 0.0-8. 0 Not Available [facility] ([facility]) [address] [place], [address], 07/10/2020 06:04:03 07/10/20 20 07/10/2020 CBC w/ auto diff basos 0.7 % 0.0-2. 0 Not Available [facility] ([facility]) [address] [place], [address], 07/10/2020 06:04:03 07/10/20 20 07/10/2020 CBC w/ auto diff granulocytes , immature (%) 0.7 % 0.0-0. 9 Not Available [facility] ([facility]) [address] [place], [address], 07/10/2020 06:04:03 07/10/20 20 07/10/2020 CBC w/ auto diff absolute neuts 1.37 K/uL 1.80-7 .70 low Not Available [facility] ([facility]) [address] [place], [address], 07/10/2020 06:04:03 07/10/20 20 07/10/2020 CBC w/ auto diff absolute lymphs 0.92 K/uL 1.00-3 .10 low Not Available [facility] ([facility]) [address] [place], [address], 07/10/2020 06:04:03 07/10/2007/10/2020 CBC w/ auto diff absolute monos 0.31 K/uL 0.20-0 .80 Not Available [facility] ([facility]patient) [address] [place], [address], 07/10/2020 06:04:03 07/10/2007/10/2020 CBC w/ auto diff absolute eos 0.14 K/uL 0.00-0 .80 Not Available [facility] ([facility]patient) [address] [place], [address], 07/10/2020 06:04:03 07/10/2007/10/2020 CBC w/ auto diff absolute basos 0.02 K/uL 0.00-0 .09 Not Available [facility] (Outpatient) [address] [place], [address], 07/10/2020 06:04:03 07/10/20 20 07/10/2020 CBC w/ auto diff granulocytes , immature 0.02 K/uL 0.00-0 .05 Not Available [facility] ([facility]) [address] [place], [address], 07/10/2020 06:04:03 07/10/20 20 07/10/2020 BMP, blood sodium 145 mmol/ L 133-14 6 Not Available [facility] ([facility]) [address] [place], [address], 07/10/2020 06:23:58 07/10/20 20 07/10/2020 BMP, blood chloride 108 mmol/ L 96-108 Not Available [facility] ([facility]) [address] [place], [address], 07/10/2020 06:23:58 07/10/20 20 07/10/2020 BMP, blood potassium 4.1 mmol/ L 3.3-5. 1 Not Available [facility] ([facility]) [address] [place], [address], 07/10/2020 06:23:58 07/10/20 20 07/10/2020 BMP, blood CO2 27 mmol/ L 21-35 Not Available [facility] ([facility]) [address] [place], [address], 07/10/2020 06:23:58 07/10/20 20 07/10/2020 BMP, blood BUN 12 mg/dL 6-19 Not Available [facility] ([facility]) [address] [place], [address], 07/10/2020 06:23:58 07/10/20 20 07/10/2020 BMP, blood creatinine 0.90 mg/dL 0.5-1. 5 Not Available [facility] ([facility]) [address] [place], [address], 07/10/2020 06:23:58 07/10/20 20 07/10/2020 BMP, blood glucose 95 mg/dL 70-99 Not Available [facility] ([facility]) [address] [place], [address], 07/10/2020 06:23:58 07/10/20 20 07/10/2020 BMP, blood calcium 8.8 mg/dL 8.4-10 .3 Not Available [facility] ([facility]patient) [address] [place], [address], 07/10/2020 06:23:58 07/10/20 20 07/10/2020 BMP, blood eGFR 94 mL/mi n/1.7 3m2 >59 Estim ated glome rular filtr ation rate calcu lated using the CKD-E PI equat ion. Not Available [facility] (Outpatient) [address] [place], [address], 07/10/2020 06:23:58 07/10/20 20 07/10/2020 BMP, blood anion gap 14 mmol/ L 10-20 Not Available [facility] (Outpatient) [address] [place], [address], 07/10/2020 06:23:58 07/10/20 20 07/10/2020 magne sium, QN, serum or plasm a magnesium 2.0 mg/dL 1.6-2. 6 Not Available [facility] (Outpatient) [address] [place], [address], 07/10/2020 06:24:00 07/10/20 20 07/10/2020 phosp horus , serum or plasm a phosphorus 3.9 mg/dL 2.7-4. 5 Not Available [facility] (Outpatient) [address] [place], [address], 07/10/2020 06:24:01 07/11/20 20 07/11/2020 CBC w/ auto diff WBC 2.86 K/uL 4.00-1 1.00 low Note Refer ence Range updat es to all CBC and Diffe renti al resul ts. Not Available [facility] (Outpatient) [address] [place], [address], 07/11/2020 05:47:47 07/11/20 20 07/11/2020 CBC w/ auto diff RBC 4.04 M/uL 3.90-5 .69 Not Available [facility] ([facility]patient) [address] [place], [address], 07/11/2020 05:47:47 07/11/20 20 07/11/2020 CBC w/ auto diff HGB 13.3 g/dL 12.4-1 7.3 Note updat ed Refer ence Range s for all CBC and Diffe renti al resul ts. Not Available [facility] (Outpatient) [address] [place], [address], 07/11/2020 05:47:47 07/11/20 20 07/11/2020 CBC w/ auto diff HCT 37.6 % 37.0-5 1.0 Not Available [facility] (Outpatient) [address] [place], [address], 07/11/2020 05:47:47 07/11/20 20 07/11/2020 CBC w/ auto diff plt 247 K/uL 140-43 0 Not Available [facility] (Out[facility]) [address] [place] [address], [address], 07/11/2020 05:47:47 07/11/20 20 07/11/2020 CBC w/ auto diff MCV 93.1 fL 78.0-9 7.0 Not Available [facility] (Outpatient) [address] [place], [address], 07/11/2020 05:47:47 07/11/20 20 07/11/2020 CBC w/ auto diff MCH 32.9 pg 25.0-3 3.0 Not Available [facility] (Outpatient) [address] [place], [address], 07/11/2020 05:47:47 07/11/20 20 07/11/2020 CBC w/ auto diff MCHC 35.4 g/dL 32.0-3 6.0 Not Available [facility] (Outpatient) [address] [place], [address], 07/11/2020 05:47:47 07/11/20 20 07/11/2020 CBC w/ auto diff RDW 12.8 % 11.0-1 5.0 Not Available [facility] ([facility]patient) [address] [place], [address], 07/11/2020 05:47:47 07/11/20 20 07/11/2020 CBC w/ auto diff MPV 8.5 fL 8.4-12 .8 Not Available [facility] (Outpatient) [address] [place] [address], [address], 07/11/2020 05:47:47 07/11/20 20 07/11/2020 CBC w/ auto diff NRBC 0.00 /100_ WBCs 0 Not Available [facility] (Outpatient) [address] [place] [address], [address], 07/11/2020 05:47:47 07/11/20 20 07/11/2020 CBC w/ auto diff absolute NRBC 0.00 K/uL 0 Not Available [facility] ([facility]patient) [address] [place], [address], 07/11/2020 05:47:47 07/11/20 20 07/11/2020 CBC w/ auto diff diff method Auto Not Available [facility] ([facility]) [address] [place], [address], 07/11/2020 05:47:47 07/11/20 20 07/11/2020 CBC w/ auto diff neuts 50.1 % 43.0-7 5.0 Not Available [facility] (Outpatient) [address] [place], [address], 07/11/2020 05:47:47 07/11/20 20 07/11/2020 CBC w/ auto diff lymphs 31.8 % 18.2-4 7.4 Not Available [facility] (Outpatient) [address] [place], [address], 07/11/2020 05:47:47 07/11/20 20 07/11/2020 CBC w/ auto diff monos 12.6 % 4.00-1 1.00 high Not Available [facility] (Outpatient) [address] [place], [address], 07/11/2020 05:47:47 07/11/20 20 07/11/2020 CBC w/ auto diff eos 4.2 % 0.0-8. 0 Not Available [facility] (Outpatient) [address] [place] [address], [address], 07/11/2020 05:47:47 07/11/20 20 07/11/2020 CBC w/ auto diff basos 1.0 % 0.0-2. 0 Not Available [facility] (Outpatient) [address] [place] [address], [address], 07/11/2020 05:47:47 07/11/20 20 07/11/2020 CBC w/ auto diff granulocytes , immature (%) 0.3 % 0.0-0. 9 Not Available [facility] (Outpatient) [address] [place] [address], [address], 07/11/2020 05:47:47 07/11/20 20 07/11/2020 CBC w/ auto diff absolute neuts 1.43 K/uL 1.80-7 .70 low Not Available [facility] (Outpatient) [address] [place] [address], [address], 07/11/2020 05:47:47 07/11/20 20 07/11/2020 CBC w/ auto diff absolute lymphs 0.91 K/uL 1.00-3 .10 low Not Available [facility] (Outpatient) [address] [place], [address], 07/11/2020 05:47:47 07/11/20 20 07/11/2020 CBC w/ auto diff absolute monos 0.36 K/uL 0.20-0 .80 Not Available [facility] (Outpatient) [address] [place], [address], 07/11/2020 05:47:47 07/11/20 20 07/11/2020 CBC w/ auto diff absolute eos 0.12 K/uL 0.00-0 .80 Not Available [facility] (Outpatient) [address] [place], [address], 07/11/2020 05:47:47 07/11/20 20 07/11/2020 CBC w/ auto diff absolute basos 0.03 K/uL 0.00-0 .09 Not Available [facility] (Outpatient) [address] [place], [address], 07/11/2020 05:47:47 07/11/20 20 07/11/2020 CBC w/ auto diff granulocytes , immature 0.01 K/uL 0.00-0 .05 Not Available [facility] (Outpatient) [address] [place], [address], 07/11/2020 05:47:47 07/11/20 20 07/11/2020 BMP, blood sodium 144 mmol/ L 133-14 6 Not Available [facility] (Outpatient) [address] [place], [address], 07/11/2020 06:14:38 07/11/2007/11/2020 BMP, blood chloride 106 mmol/ L 96-108 Not Available [facility] ([facility]patient) [address] [place], [address], 07/11/2020 06:14:38 07/11/20 20 07/11/2020 BMP, blood potassium 4.0 mmol/ L 3.3-5. 1 Not Available [facility] (Outpatient) [address] [place], [address], 07/11/2020 06:14:38 07/11/20 20 07/11/2020 BMP, blood CO2 28 mmol/ L 21-35 Not Available [facility] ([facility]patient) [address] [place], [address], 07/11/2020 06:14:38 07/11/20 20 07/11/2020 BMP, blood BUN 9 mg/dL 6-19 Not Available [facility] ([facility]patient) [address] [place], [address], 07/11/2020 06:14:38 07/11/20 20 07/11/2020 BMP, blood creatinine 0.90 mg/dL 0.5-1. 5 Not Available [facility] (Outpatient) [address] [place], [address], 07/11/2020 06:14:38 07/11/20 20 07/11/2020 BMP, blood glucose 96 mg/dL 70-99 Not Available [facility] ([facility]patient) [address] [place], [address], 07/11/2020 06:14:38 07/11/20 20 07/11/2020 BMP, blood calcium 8.9 mg/dL 8.4-10 .3 Not Available [facility] ([facility]patient) [address] [place], [address], 07/11/2020 06:14:38 07/11/2007/11/2020 BMP, blood eGFR 94 mL/mi n/1.7 3m2 >59 Estim ated glome rular filtr ation rate calcu lated using the CKD-E PI equat ion. Not Available [facility] (Outpatient) [address] [place] [address], [address], 07/11/2020 06:14:38 07/11/20 20 07/11/2020 BMP, blood anion gap 14 mmol/ L 10-20 Not Available [facility] ([facility]patient) [address] [place], [address], 07/11/2020 06:14:38 07/11/20 20 07/11/2020 magne sium, QN, serum or plasm a magnesium 2.0 mg/dL 1.6-2. 6 Not Available [facility] ([facility]patient) [address] [place], [address], 07/11/2020 06:14:40 07/11/20 20 07/11/2020 phosp horus , serum or plasm a phosphorus 4.1 mg/dL 2.7-4. 5 Not Available [facility] ([facility]patient) [address] [place], [address], 07/11/2020 06:14:41 03/21/20 21 03/21/2021 trey zoe respi rator y viral order (pro) test ordered Rapid COVID has been ordere d Not Available [facility] ([facility]) [address] [place], [address], 03/21/2021 15:41:30 03/21/20 21 03/21/2021 trey zoe respi rator y viral order (pro) specimen source NASAL Not Available [facility] ([facility]patient) [address] [place] [address], [address], 03/21/2021 15:41:30 03/21/20 21 03/21/2021 trey zoe respi rator y viral order (pro) sars-cov-2 result Negati ve negati ve Negat juve resul ts do not precl ude SARS- CoV-2 infec tion and shoul d not be used as the sole basis for patie nt manag ement decis ions. Negat juve resul ts must be combi jennifer with clini lydia obser vatio ns, patie nt histo ry, and epide miolo gical infor matio n. Testi ng was perfo rmed using the Abbot t ID NOW COVID -19 assay perfo rmed on the Abbot t ID NOW Instr ument . Fact sheet s for this Emerg ency Use Heather hernandez can be found at the [employer] links : For Healt hcare Provi ders: https ://ww w.[employer] .gov/ media /1365 23/do wnloa d For Patie nts: https ://ww [employer] .gov. media /1365 24/do wnloa d. Not Available [facility] ([facility]patient) [address] [place], [address], 03/21/2021 15:41:30 03/21/20 21 03/21/2021 CBC w/ auto diff WBC 3.27 K/uL 4.00-1 1.00 low Not Available [facility] (Outpatient) [address] [place] [address], [address], 03/21/2021 15:44:51 03/21/20 21 03/21/2021 CBC w/ auto diff RBC 4.92 M/uL 3.90-5 .69 Not Available [facility] (Outpatient) [address] [place], [address], 03/21/2021 15:44:51 03/21/20 21 03/21/2021 CBC w/ auto diff HGB 15.9 g/dL 12.4-1 7.3 Not Available [facility] ([facility]patient) [address] [place], [address], 03/21/2021 15:44:51 03/21/20 21 03/21/2021 CBC w/ auto diff HCT 47.0 % 37.0-5 1.0 Not Available [facility] (Outpatient) [address] [place] [address], [address], 03/21/2021 15:44:51 03/21/20 21 03/21/2021 CBC w/ auto diff plt 196 K/uL 140-43 0 Not Available [facility] (Outpatient) [address] [place], [address], 03/21/2021 15:44:51 03/21/20 21 03/21/2021 CBC w/ auto diff MCV 95.5 fL 78.0-9 7.0 Not Available [facility] (Outpatient) [address] [place], [address], 03/21/2021 15:44:51 03/21/20 21 03/21/2021 CBC w/ auto diff MCH 32.3 pg 25.0-3 3.0 Not Available [facility] (Outpatient) [address] [place], [address], 03/21/2021 15:44:51 03/21/20 21 03/21/2021 CBC w/ auto diff MCHC 33.8 g/dL 32.0-3 6.0 Not Available [facility] (Outpatient) [address] [place], [address], 03/21/2021 15:44:51 03/21/20 21 03/21/2021 CBC w/ auto diff RDW 14.6 % 11.0-1 5.0 Not Available [facility] (Outpatient) [address] [place] [address], [address], 03/21/2021 15:44:51 03/21/20 21 03/21/2021 CBC w/ auto diff MPV 8.3 fL 8.4-12 .8 low Not Available [facility] (Outpatient) [address] [place], [address], 03/21/2021 15:44:51 03/21/20 21 03/21/2021 CBC w/ auto diff NRBC 0.00 /100_ WBCs 0 Not Available [facility] (Outpatient) [address] [place] [address], [address], 03/21/2021 15:44:51 03/21/20 21 03/21/2021 CBC w/ auto diff absolute NRBC 0.00 K/uL 0 Not Available [facility] (Outpatient) [address] [place], [address], 03/21/2021 15:44:51 03/21/20 21 03/21/2021 CBC w/ auto diff diff method Auto Not Available [facility] ([facility]) [address] [place], [address], 03/21/2021 15:44:51 03/21/20 21 03/21/2021 CBC w/ auto diff neuts 46.8 % 43.0-7 5.0 Not Available [facility] (Outpatient) [address] [place], [address], 03/21/2021 15:44:51 03/21/20 21 03/21/2021 CBC w/ auto diff lymphs 41.0 % 18.2-4 7.4 Not Available [facility] (Outpatient) [address] [place], [address], 03/21/2021 15:44:51 03/21/20 21 03/21/2021 CBC w/ auto diff monos 9.5 % 4.00-1 1.00 Not Available [facility] (Outpatient) [address] [place], [address], 03/21/2021 15:44:51 03/21/20 21 03/21/2021 CBC w/ auto diff eos 0.6 % 0.0-8. 0 Not Available [facility] (Outpatient) [address] [place], [address], 03/21/2021 15:44:51 03/21/20 21 03/21/2021 CBC w/ auto diff basos 0.9 % 0.0-2. 0 Not Available [facility] (Outpatient) [address] [place], [address], 03/21/2021 15:44:51 03/21/20 21 03/21/2021 CBC w/ auto diff granulocytes , immature (%) 1.2 % 0.0-0. 9 high Not Available [facility] (Outpatient) [address] [place], [address], 03/21/2021 15:44:51 03/21/20 21 03/21/2021 CBC w/ auto diff absolute neuts 1.53 K/uL 1.80-7 .70 low Not Available [facility] (Outpatient) [address] [place], [address], 03/21/2021 15:44:51 03/21/20 21 03/21/2021 CBC w/ auto diff absolute lymphs 1.34 K/uL 1.00-3 .10 Not Available [facility] (Outpatient) [address] [place], [address], 03/21/2021 15:44:51 03/21/20 21 03/21/2021 CBC w/ auto diff absolute monos 0.31 K/uL 0.20-0 .80 Not Available [facility] (Outpatient) [address] [place] [address], [address], 03/21/2021 15:44:51 03/21/20 21 03/21/2021 CBC w/ auto diff absolute eos 0.02 K/uL 0.00-0 .80 Not Available [facility] (Outpatient) [address] [place], [address], 03/21/2021 15:44:51 03/21/20 21 03/21/2021 CBC w/ auto diff absolute basos 0.03 K/uL 0.00-0 .09 Not Available [facility] (Outpatient) [address] [place] [address], [address], 03/21/2021 15:44:51 03/21/20 21 03/21/2021 CBC w/ auto diff granulocytes , immature 0.04 K/uL 0.00-0 .05 Not Available [facility] (Outpatient) [address] [place], [address], 03/21/2021 15:44:51 03/21/20 21 03/21/2021 BMP, blood sodium 146 mmol/ L 133-14 6 Not Available [facility] (Outpatient) [address] [place], [address], 03/21/2021 16:06:28 03/21/20 21 03/21/2021 BMP, blood chloride 107 mmol/ L 96-108 Not Available [facility] ([facility]) [address] [place], [address], 03/21/2021 16:06:28 03/21/20 21 03/21/2021 BMP, blood potassium 4.5 mmol/ L 3.3-5. 1 Not Available [facility] (Outpatient) [address] [place], [address], 03/21/2021 16:06:28 03/21/20 21 03/21/2021 BMP, blood CO2 27 mmol/ L 21-35 Not Available [facility] ([facility]patient) [address] [place], [address], 03/21/2021 16:06:28 03/21/20 21 03/21/2021 BMP, blood BUN 16 mg/dL 6-19 Not Available [facility] ([facility]patient) [address] [place], [address], 03/21/2021 16:06:28 03/21/20 21 03/21/2021 BMP, blood creatinine 0.70 mg/dL 0.5-1. 5 Not Available [facility] (Outpatient) [address] [place], [address], 03/21/2021 16:06:28 03/21/20 21 03/21/2021 BMP, blood glucose 82 mg/dL 70-99 Not Available [facility] ([facility]patient) [address] [place], [address], 03/21/2021 16:06:28 03/21/20 21 03/21/2021 BMP, blood calcium 9.1 mg/dL 8.4-10 .3 Not Available [facility] (Outpatient) [address] [place], [id number], 03/21/2021 16:06:28 03/21/20 21 03/21/2021 BMP, blood eGFR 103 mL/mi n/1.7 3m2 >59 Estim ated glome rular filtr ation rate calcu lated using the CKD-E PI equat ion. Not Available [facility] (Outpatient) [address] [place], [address], 03/21/2021 16:06:28 03/21/20 21 03/21/2021 BMP, blood anion gap 17 mmol/ L 10-20 Not Available [facility] (Outpatient) [address] [place], [address], 03/21/2021 16:06:28 03/21/20 21 03/21/2021 [facility] (hepa tic panel ) alkaline phosphatase 58 U/L 39-117 Not Available [facility] (Outpatient) [address], [place], [address], 03/21/2021 16:06:30 03/21/20 21 03/21/2021 lfts (hepa tic panel ) total bilirubin 0.3 mg/dL 0.0-1. 2 Not Available [facility] (Out[facility] [address] [place], [address], 03/21/2021 16:06:30 03/21/20 21 03/21/2021 lfts (hepa tic panel ) direct bilirubin <0.2 mg/dL 0-0.3 Not Available [facility] (Outpatient) [address] [place], [address], 03/21/2021 16:06:30 03/21/20 21 03/21/2021 lfts (hepa tic panel ) bilirubin (indirect) NOT CALCUL ATED mg/dL 0-1.5 Not Available [facility] (Outpatient) [address] [place], [address], 03/21/2021 16:06:30 03/21/20 21 03/21/2021 lfts (hepa tic panel ) AST 24 U/L 0-37 Not Available [facility] (Outpatient) [address] [place], [address], 03/21/2021 16:06:30 03/21/20 21 03/21/2021 lfts (hepa tic panel ) ALT 17 U/L 0-40 Not Available [facility] (Outpatient) [address] [place], [address], 03/21/2021 16:06:30 03/21/20 21 03/21/2021 lfts (hepa tic panel ) total protein 6.9 g/dL 6.5-8. 0 Not Available [facility] (Outpatient) [address] [place], [address], 03/21/2021 16:06:30 03/21/20 21 03/21/2021 lfts (hepa tic panel ) albumin 4.4 g/dL 3.9-4. 8 Not Available [facility] (Outpatient) [address] [place], [address], 03/21/2021 16:06:30 03/21/20 21 03/21/2021 lfts (hepa tic panel ) globulin 2.5 g/dL 1-4.8 Not Available [facility] (Outpatient) [address] [place], [address], 03/21/2021 16:06:30 03/21/20 21 03/21/2021 lfts (hepa tic panel ) A/G ratio 1.76 ratio 1.00-4 .80 Not Available [facility] (Outpatient) [address] [place], [address], 03/21/2021 16:06:30 03/21/20 21 03/21/2021 aceta minop hen, serum acetaminophe n <5.0 ug/mL 15.0-3 0.0 low Not Available [facility] ([facility]patient) [address] [place], [address], 03/21/2021 16:16:22 03/21/20 21 03/21/2021 nereida ol, quant itati ve, serum or plasm a ethanol 327 mg/dL <10 high Not Available [facility] ([facility]patient) [address] [place], [address], 03/21/2021 16:16:24 03/21/20 21 03/21/2021 salic ylate , quant itati ve, serum salicylates <0.3 mg/dL 2.8-19 .9 low Not Available [facility] ([facility]patient) [address] [place], [address], 03/21/2021 16:16:25 04/24/20 21 04/25/2021 BMP, blood sodium 141 mmol/ L 133-14 6 Not Available [facility] (Outpatient) [address] [place] [address], [address], 04/25/2021 00:24:21 04/24/2004/25/2021 BMP, blood chloride 99 mmol/ L 96-108 Not Available [facility] (Outpatient) [address] [place], [address], 04/25/2021 00:24:21 04/24/20 21 04/25/2021 BMP, blood potassium 3.6 mmol/ L 3.3-5. 1 Not Available [facility] (Outpatient) [address] [place], [address], 04/25/2021 00:24:21 04/24/2004/25/2021 BMP, blood CO2 28 mmol/ L 21-35 Not Available [facility] ([facility]patient) [address] [place], [address], 04/25/2021 00:24:21 04/24/2004/25/2021 BMP, blood BUN 16 mg/dL 6-19 Not Available [facility] ([facility]patient) [address] [place], [address], 04/25/2021 00:24:21 04/24/2004/25/2021 BMP, blood creatinine 0.70 mg/dL 0.5-1. 5 Not Available [facility] ([facility]patient) [address] [place], [address], 04/25/2021 00:24:21 04/24/2004/25/2021 BMP, blood glucose 136 mg/dL 70-99 high Not Available [facility] ([facility]patient) [address] [place], [address], 04/25/2021 00:24:21 04/24/2004/25/2021 BMP, blood calcium 8.6 mg/dL 8.4-10 .3 Not Available [facility] ([facility]patient) [address] [place], [address], 04/25/2021 00:24:21 04/24/2004/25/2021 BMP, blood eGFR 103 mL/mi n/1.7 3m2 >59 Estim ated glome rular filtr ation rate calcu lated using the CKD-E PI equat ion. Not Available [facility] (Outpatient) [address] [place], [address], 04/25/2021 00:24:21 04/24/2004/25/2021 BMP, blood anion gap 18 mmol/ L 10-20 Not Available [facility] (Outpatient) [address] [place], [address], 04/25/2021 00:24:21 04/24/2004/25/2021 nereida ol, quant itati ve, serum or plasm a ethanol 205 mg/dL <10 high Not Available [facility] ([facility]patient) [address] [place], [address], 04/25/2021 00:36:35 05/19/20 21 05/19/2021 COVID TREY ZOE RESPI RATOR Y VIRAL ORDER (PRO) test ordered Rapid COVID has been ordere d Not Available [facility] [address] [place], [address], 05/19/2021 18:05:22 05/19/20 21 05/19/2021 COVID TREY ZOE RESPI RATOR Y VIRAL ORDER (PRO) specimen source NASAL Not Available [facility] (Outpatient) [address] [place], [address], 05/19/2021 18:05:22 05/19/20 21 05/19/2021 COVID TREY ZOE RESPI RATOR Y VIRAL ORDER (PRO) sars-cov-2 result Negati ve negati ve Negat juve resul ts do not precl ude SARS- CoV-2 infec tion and shoul d not be used as the sole basis for patie nt manag ement decis ions. Negat juve resul ts must be combi jennifer with clini lydia obser vatio ns, patie nt histo ry, and epide miolo gical infor matio n. Testi ng was perfo rmed using the Abbot t ID NOW COVID -19 assay perfo rmed on the Abbot t ID NOW Instr ument . Fact sheet s for this Emerg ency Use Autho rizat ion can be found at the [employer] links : For Healt hcare Provi ders: https ://ww w.fda .gov/ media /6764 23/do wnloa d For Patie nts: https ://ww w.fda .gov. media /1365 24/do susietim cortesGary Not Available [facility] (Outpatient) [address] [place], [address], 05/19/2021 18:05:22 05/19/20 21 05/19/2021 BASIC METAB OLIC PANEL sodium 144 mmol/ L 133-14 6 Not Available [facility] ([facility]) [address] [place], [address], 05/19/2021 18:10:58 05/19/20 21 05/19/2021 BASIC METAB OLIC PANEL chloride 103 mmol/ L 96-108 Not Available [facility] ([facility]) [address] [place], [address], 05/19/2021 18:10:58 05/19/20 21 05/19/2021 BASIC METAB OLIC PANEL potassium 3.5 mmol/ L 3.3-5. 1 Not Available [facility] ([facility]patient) [address] [place], [address], 05/19/2021 18:10:58 05/19/20 21 05/19/2021 BASIC METAB OLIC PANEL CO2 23 mmol/ L 21-35 Not Available [facility] ([facility]patient) [address] [place], [address], 05/19/2021 18:10:58 05/19/20 21 05/19/2021 BASIC METAB OLIC PANEL BUN 18 mg/dL 6-19 Not Available [facility] ([facility]patient) [address] [place], [address], 05/19/2021 18:10:58 05/19/20 21 05/19/2021 BASIC METAB OLIC PANEL creatinine 0.70 mg/dL 0.5-1. 5 Not Available [facility] ([facility]) [address] [place], [address], 05/19/2021 18:10:58 05/19/20 21 05/19/2021 BASIC METAB OLIC PANEL glucose 76 mg/dL 70-99 Not Available [facility] ([facility]) [address] [place], [address], 05/19/2021 18:10:58 05/19/20 21 05/19/2021 BASIC METAB OLIC PANEL calcium 8.4 mg/dL 8.4-10 .3 Not Available [facility] ([facility]) [address] [place], [address], 05/19/2021 18:10:58 05/19/20 21 05/19/2021 BASIC METAB OLIC PANEL eGFR 103 mL/mi n/1.7 3m2 >59 Estim ated glome rular filtr ation rate calcu lated using the CKD-E PI equat ion. Not Available [facility] (Outpatient) [address] [place], [address], 05/19/2021 18:10:58 05/19/20 21 05/19/2021 BASIC METAB OLIC PANEL anion gap 22 mmol/ L 10-20 high Not Available [facility] ([facility]patient) [address] [place], [address], 05/19/2021 18:10:58 05/19/20 21 05/19/2021 LFTS (HEPA TIC PANEL ) alkaline phosphatase 52 U/L 39-117 Not Available [facility] (Outpatient) [address] [place], [address], 05/19/2021 18:11:00 05/19/20 21 05/19/2021 LFTS (HEPA TIC PANEL ) total bilirubin 0.3 mg/dL 0.0-1. 2 Not Available [facility] (Outpatient) [address] [place], [address], 05/19/2021 18:11:00 05/19/20 21 05/19/2021 LFTS (HEPA TIC PANEL ) direct bilirubin <0.2 mg/dL 0-0.3 Not Available [facility] (Outpatient) [address] [place], [address], 05/19/2021 18:11:00 05/19/20 21 05/19/2021 LFTS (HEPA TIC PANEL ) bilirubin (indirect) NOT CALCUL ATED mg/dL 0-1.5 Not Available [facility] (Outpatient) [address] [place], [address], 05/19/2021 18:11:00 05/19/20 21 05/19/2021 LFTS (HEPA TIC PANEL ) AST 28 U/L 0-37 Not Available [facility] (Outpatient) [address] [place], [address], 05/19/2021 18:11:00 05/19/20 21 05/19/2021 LFTS (HEPA TIC PANEL ) ALT 16 U/L 0-40 Not Available [facility] ([facility]patient) [address] [place], [address], 05/19/2021 18:11:00 05/19/20 21 05/19/2021 LFTS (HEPA TIC PANEL ) total protein 6.6 g/dL 6.5-8. 0 Not Available [facility] (Outpatient) [address] [place], [address], 05/19/2021 18:11:00 05/19/20 21 05/19/2021 LFTS (HEPA TIC PANEL ) albumin 4.3 g/dL 3.9-4. 8 Not Available [facility] (Outpatient) [address] [place], [address], 05/19/2021 18:11:00 05/19/20 21 05/19/2021 LFTS (HEPA TIC PANEL ) globulin 2.3 g/dL 1-4.8 Not Available [facility] (Outpatient) [address] [place], [address], 05/19/2021 18:11:00 05/19/20 21 05/19/2021 LFTS (HEPA TIC PANEL ) A/G ratio 1.87 ratio 1.00-4 .80 Not Available [facility] (Outpatient) [address] [place], [address], 05/19/2021 18:11:00 05/19/20 21 05/19/2021 ACETA MINOP HEN LEVEL acetaminophe n <5.0 ug/mL 15.0-3 0.0 low Not Available [facility] ([facility]patient) [address] [place], [address], 05/19/2021 18:13:52 05/19/20 21 05/19/2021 NEREIDA OL, BLOOD ethanol 390 mg/dL <10 high Not Available [facility] (Outpatient) [address] [place], [address], 05/19/2021 18:13:54 05/19/20 21 05/19/2021 SALIC YLATE S salicylates <0.3 mg/dL 2.8-19 .9 low Not Available [facility] ([facility]patient) [address] [place], [address], 05/19/2021 18:13:55 05/19/20 21 05/19/2021 TOXIC OLOGY SCREE N, URINE urine cannabinoids NONE DETECT ED none detect ed Cutof f: 50 ng/mL Not Available [facility] ([facility]patient) [address] [place], [address], 05/19/2021 18:19:37 05/19/20 21 05/19/2021 TOXIC OLOGY SCREE N, URINE urine cocaine metab NONE DETECT ED none detect ed Cutof f: 300 ng/mL Not Available [facility] (Outpatient) [address] [place], [address], 05/19/2021 18:19:37 05/19/20 21 05/19/2021 TOXIC OLOGY SCREE N, URINE urine amphetamines NONE DETECT ED none detect ed Cutof f: 1000 ng/mL Not Available [facility] (Outpatient) [address] [place], [address], 05/19/2021 18:19:37 05/19/20 21 05/19/2021 TOXIC OLOGY SCREE N, URINE urine methadone NONE DETECT ED none detect ed Cutof f: 300 ng/mL Not Available [facility] (Outpatient) [address] [place], [address], 05/19/2021 18:19:37 05/19/20 21 05/19/2021 TOXIC OLOGY SCREE N, URINE urine opiates NONE DETECT ED none detect ed Cutof f: 300 ng/mL Not Available [facility] (Outpatient) [address] [place], [address], 05/19/2021 18:19:37 05/19/20 21 05/19/2021 TOXIC OLOGY SCREE N, URINE urine phencyclidin e NONE DETECT ED none detect ed Cutof f: 25 ng/mL Not Available [facility] (Outpatient) [address] [place], [address], 05/19/2021 18:19:37 05/19/20 21 05/19/2021 TOXIC OLOGY SCREE N, URINE urine oxycodone NONE DETECT ED none detect ed Cutof f: 300 ng/ml Not Available [facility] ([facility]patient) [address] [place], [address], 05/19/2021 18:19:37 05/19/20 21 05/19/2021 TOXIC OLOGY SCREE N, URINE urine barbiturates NONE DETECT ED none detect ed Cutof f: 200 ng/mL Not Available [facility] (Outpatient) [address] [place], [address], 05/19/2021 18:19:37 05/19/20 21 05/19/2021 TOXIC OLOGY SCREE N, URINE urine benzodiazepi ne NONE DETECT ED none detect ed Cutof f: 200 ng/mL Not Available [facility] (Outpatient) [address] [place] [address], [address], 05/19/2021 18:19:37 05/19/20 21 05/19/2021 TOXIC OLOGY SCREE N, URINE urine buprenorphin e NONE DETECT ED none detect ed Cutof f: 5 ng/mL INTER PRETA TION FOR TOXIC OLOGY PANEL : Thes e resul ts are uncon firme d and shoul d be used for Medic al Treat ment purpo ses only. Not Available [facility] (Outpatient) [address] [place] [address], [address], 05/19/2021 18:19:37 05/19/20 21 05/19/2021 CBC AND DIFFE RENTI AL WBC 4.03 K/uL 4.00-1 1.00 Not Available [facility] ([facility]) [address] [place] [address], [address], 05/19/2021 18:42:33 05/19/20 21 05/19/2021 CBC AND DIFFE RENTI AL RBC 4.69 M/uL 3.90-5 .69 Not Available [facility] (Outpatient) [address] [place] [address], [address], 05/19/2021 18:42:33 05/19/20 21 05/19/2021 CBC AND DIFFE RENTI AL HGB 15.7 g/dL 12.4-1 7.3 Not Available [facility] (Outpatient) [address] [place] [address], [address], 05/19/2021 18:42:33 05/19/20 21 05/19/2021 CBC AND DIFFE RENTI AL HCT 44.0 % 37.0-5 1.0 Not Available [facility] (Outpatient) [address] [place] [address], [address], 05/19/2021 18:42:33 05/19/20 21 05/19/2021 CBC AND DIFFE RENTI AL plt 194 K/uL 140-43 0 Not Available [facility] (Outpatient) [address] [place], [address], 05/19/2021 18:42:33 05/19/20 21 05/19/2021 CBC AND DIFFE RENTI AL MCV 93.8 fL 78.0-9 7.0 Not Available [facility] (Outpatient) [address] [place], [address], 05/19/2021 18:42:33 05/19/20 21 05/19/2021 CBC AND DIFFE RENTI AL MCH 33.5 pg 25.0-3 3.0 high Not Available [facility] (Outpatient) [address] [place], [address], 05/19/2021 18:42:33 05/19/20 21 05/19/2021 CBC AND DIFFE RENTI AL MCHC 35.7 g/dL 32.0-3 6.0 Not Available [facility] (Outpatient) [address] [place], [address], 05/19/2021 18:42:33 05/19/20 21 05/19/2021 CBC AND DIFFE RENTI AL RDW 14.0 % 11.0-1 5.0 Not Available [facility] (Outpatient) [address] [place], [address], 05/19/2021 18:42:33 05/19/20 21 05/19/2021 CBC AND DIFFE RENTI AL MPV 8.2 fL 8.4-12 .8 low Not Available [facility] (Outpatient) [address] [place] [address], [address], 05/19/2021 18:42:33 05/19/20 21 05/19/2021 CBC AND DIFFE RENTI AL NRBC 0.00 /100_ WBCs 0 Not Available [facility] (Outpatient) [address] [place], [address], 05/19/2021 18:42:33 05/19/20 21 05/19/2021 CBC AND DIFFE RENTI AL absolute NRBC 0.00 K/uL 0 Not Available [facility] (Outpatient) [address] [place], [address], 05/19/2021 18:42:33 05/19/20 21 05/19/2021 CBC AND DIFFE RENTI AL diff method Auto Not Available [facility] (Outpatient) [address] [place], [address], 05/19/2021 18:42:33 05/19/20 21 05/19/2021 CBC AND DIFFE RENTI AL neuts 58.9 % 43.0-7 5.0 Not Available [facility] (Outpatient) [address] [place], [address], 05/19/2021 18:42:33 05/19/20 21 05/19/2021 CBC AND DIFFE RENTI AL lymphs 31.0 % 18.2-4 7.4 Not Available [facility] (Outpatient) [address] [place], [address], 05/19/2021 18:42:33 05/19/20 21 05/19/2021 CBC AND DIFFE RENTI AL monos 8.7 % 4.00-1 1.00 Not Available [facility] (Outpatient) [address] [place], [address], 05/19/2021 18:42:33 05/19/20 21 05/19/2021 CBC AND DIFFE RENTI AL eos 0.2 % 0.0-8. 0 Not Available [facility] (Outpatient) [address] [place], [address], 05/19/2021 18:42:33 05/19/20 21 05/19/2021 CBC AND DIFFE RENTI AL basos 0.5 % 0.0-2. 0 Not Available [facility] (Outpatient) [address] [place], [address], 05/19/2021 18:42:33 05/19/20 21 05/19/2021 CBC AND DIFFE RENTI AL granulocytes , immature (%) 0.7 % 0.0-0. 9 Not Available [facility] (Outpatient) [address] [place], [address], 05/19/2021 18:42:33 05/19/20 21 05/19/2021 CBC AND DIFFE RENTI AL absolute neuts 2.37 K/uL 1.80-7 .70 Not Available [facility] (Outpatient) [address] [place] [address], [address], 05/19/2021 18:42:33 05/19/20 21 05/19/2021 CBC AND DIFFE RENTI AL absolute lymphs 1.25 K/uL 1.00-3 .10 Not Available [facility] (Outpatient) [address] [place] [address], [address], 05/19/2021 18:42:33 05/19/20 21 05/19/2021 CBC AND DIFFE RENTI AL absolute monos 0.35 K/uL 0.20-0 .80 Not Available [facility] (Outpatient) [address] [place], [address], 05/19/2021 18:42:33 05/19/20 21 05/19/2021 CBC AND DIFFE RENTI AL absolute eos 0.01 K/uL 0.00-0 .80 Not Available [facility] (Outpatient) [address] [place] [address], [address], 05/19/2021 18:42:33 05/19/20 21 05/19/2021 CBC AND DIFFE RENTI AL absolute basos 0.02 K/uL 0.00-0 .09 Not Available [facility] (Outpatient) [address] [place], [address], 05/19/2021 18:42:33 05/19/20 21 05/19/2021 CBC AND DIFFE RENTI AL granulocytes , immature 0.03 K/uL 0.00-0 .05 Not Available [facility] (Outpatient) [address] [place], [address], 05/19/2021 18:42:33 07/04/20 21 07/04/2021 POCT GLUCO SE whole blood glucose 117 mg/dL 70-99 high Not Available [facility] ([facility]patient) [address] [place], [address], 07/04/2021 18:27:24 06/25/20 22 06/25/2022 POCT GLUCO SE whole blood glucose 73 mg/dL 70-99 Not Available [facility] (Outpatient) [address] [place], [address], 06/25/2022 11:23:43 07/14/20 22 07/14/2022 CBC AND DIFFE RENTI AL WBC 6.93 K/uL 4.00-1 1.00 Not Available [facility] (Outpatient) [address] [place] [address], [address], 07/14/2022 12:49:57 07/14/20 22 07/14/2022 CBC AND DIFFE RENTI AL RBC 4.89 M/uL 3.90-5 .69 Not Available [facility] (Outpatient) [address] [place] [address], [address], 07/14/2022 12:49:57 07/14/20 22 07/14/2022 CBC AND DIFFE RENTI AL HGB 15.8 g/dL 12.4-1 7.3 Not Available [facility] (Outpatient) [address] [place], [address], 07/14/2022 12:49:57 07/14/20 22 07/14/2022 CBC AND DIFFE RENTI AL HCT 46.0 % 37.0-5 1.0 Not Available [facility] (Outpatient) [address] [place], [address], 07/14/2022 12:49:57 07/14/20 22 07/14/2022 CBC AND DIFFE RENTI AL plt 278 K/uL 140-43 0 Not Available [facility] (Outpatient) [address] [place], [address], 07/14/2022 12:49:57 07/14/20 22 07/14/2022 CBC AND DIFFE RENTI AL MCV 94.1 fL 78.0-9 7.0 Not Available [facility] (Outpatient) [address] [place] [address], [address], 07/14/2022 12:49:57 07/14/20 22 07/14/2022 CBC AND DIFFE RENTI AL MCH 32.3 pg 25.0-3 3.0 Not Available [facility] (Outpatient) [address] [place] [address], [address], 07/14/2022 12:49:57 07/14/20 22 07/14/2022 CBC AND DIFFE RENTI AL MCHC 34.3 g/dL 32.0-3 6.0 Not Available [facility] (Outpatient) [address] [place], [address], 07/14/2022 12:49:57 07/14/20 22 07/14/2022 CBC AND DIFFE RENTI AL RDW 14.6 % 11.0-1 5.0 Not Available [facility] (Outpatient) [address] [place] [address], [address], 07/14/2022 12:49:57 07/14/20 22 07/14/2022 CBC AND DIFFE RENTI AL MPV 7.9 fL 8.4-12 .8 low Not Available [facility] (Outpatient) [address] [place], [address], 07/14/2022 12:49:57 07/14/20 22 07/14/2022 CBC AND DIFFE RENTI AL diff method Auto Not Available [facility] (Outpatient) [address] [place], [address], 07/14/2022 12:49:57 07/14/20 22 07/14/2022 CBC AND DIFFE RENTI AL neuts 72.3 % 43.0-7 5.0 Not Available [facility] (Outpatient) [address] [place], [address], 07/14/2022 12:49:57 07/14/20 22 07/14/2022 CBC AND DIFFE RENTI AL lymphs 18.5 % 18.2-4 7.4 Not Available [facility] (Outpatient) [address] [place], [address], 07/14/2022 12:49:57 07/14/20 22 07/14/2022 CBC AND DIFFE RENTI AL monos 6.8 % 4.00-1 1.00 Not Available [facility] (Outpatient) [address] [place], [address], 07/14/2022 12:49:57 07/14/20 22 07/14/2022 CBC AND DIFFE RENTI AL eos 0.4 % 0.0-8. 0 Not Available [facility] (Outpatient) [address] [place], [address], 07/14/2022 12:49:57 07/14/20 22 07/14/2022 CBC AND DIFFE RENTI AL basos 1.0 % 0.0-2. 0 Not Available [facility] (Outpatient) [address] [place], [address], 07/14/2022 12:49:57 07/14/20 22 07/14/2022 CBC AND DIFFE RENTI AL granulocytes , immature (%) 1.0 % 0.0-0. 9 high Not Available [facility] (Outpatient) [address] [place], [address], 07/14/2022 12:49:57 07/14/20 22 07/14/2022 CBC AND DIFFE RENTI AL absolute neuts 5.01 K/uL 1.80-7 .70 Not Available [facility] (Outpatient) [address] [place], [address], 07/14/2022 12:49:57 07/14/20 22 07/14/2022 CBC AND DIFFE RENTI AL absolute lymphs 1.28 K/uL 1.00-3 .10 Not Available [facility] (Outpatient) [address] [place], [address], 07/14/2022 12:49:57 07/14/20 22 07/14/2022 CBC AND DIFFE RENTI AL absolute monos 0.47 K/uL 0.20-0 .80 Not Available [facility] (Outpatient) [address] [place], [address], 07/14/2022 12:49:57 07/14/20 22 07/14/2022 CBC AND DIFFE RENTI AL absolute eos 0.03 K/uL 0.00-0 .80 Not Available [facility] (Outpatient) [address] [place], [address], 07/14/2022 12:49:57 07/14/2007/14/2022 CBC AND DIFFE RENTI AL absolute basos 0.07 K/uL 0.00-0 .09 Not Available [facility] (Outpatient) [address] [place] [address], [address], 07/14/2022 12:49:57 07/14/20 22 07/14/2022 CBC AND DIFFE RENTI AL granulocytes , immature 0.07 K/uL 0.00-0 .05 high Not Available [facility] (Outpatient) [address] [place], [address], 07/14/2022 12:49:57 07/14/20 22 07/14/2022 PT-IN R PT 10.7 sec 10.2-1 2.9 Not Available [facility] (Outpatient) [address] [place], [address], 07/14/2022 13:17:26 07/14/20 22 07/14/2022 PT-IN R INR 0.9 0.9-1. 1 Thera peuti c range for oral Vitam in K antag onist s: 2.0-3 .5 Not Available [facility] (Outpatient) [address] [place], [address], 07/14/2022 13:17:26 07/14/20 22 07/14/2022 NEREIDA OL, BLOOD ethanol 347 mg/dL <10 high Not Available [facility] (Outpatient) [address] [place], [address], 07/14/2022 13:18:50 07/14/20 22 07/14/2022 BASIC METAB OLIC PANEL sodium 144 mmol/ L 133-14 6 Not Available [facility] (Outpatient) [address] [place], [address], 07/14/2022 13:26:13 07/14/20 22 07/14/2022 BASIC METAB OLIC PANEL chloride 98 mmol/ L 96-108 Not Available [facility] (Outpatient) [address] [place], [address], 07/14/2022 13:26:13 07/14/20 22 07/14/2022 BASIC METAB OLIC PANEL potassium 3.7 mmol/ L 3.3-5. 1 Not Available [facility] (Outpatient) [address] [place], [address], 07/14/2022 13:26:13 07/14/20 22 07/14/2022 BASIC METAB OLIC PANEL CO2 29 mmol/ L 21-35 Not Available [facility] (Outpatient) [address] [place], [id number], 07/14/2022 13:26:13 07/14/20 22 07/14/2022 BASIC METAB OLIC PANEL BUN 17 mg/dL 6-19 Not Available [facility] (Outpatient[facility] [address] [place], [id number], 07/14/2022 13:26:13 07/14/20 22 07/14/2022 BASIC METAB OLIC PANEL creatinine 0.70 mg/dL 0.5-1. 5 Not Available [facility] (Outpatient[facility] [address] [place], [id number], 07/14/2022 13:26:13 07/14/20 22 07/14/2022 BASIC METAB OLIC PANEL glucose 80 mg/dL 70-99 Not Available [facility] ([facility] [address] [place], [address], 07/14/2022 13:26:13 07/14/20 22 07/14/2022 BASIC METAB OLIC PANEL calcium 8.8 mg/dL 8.4-10 .3 Not Available [facility] (Outpatient) [address] [place], [id number], 07/14/2022 13:26:13 07/14/20 22 07/14/2022 BASIC METAB OLIC PANEL eGFR 105 mL/mi n/1.7 3m2 >59 Estim ated glome rular filtr ation rate calcu lated using the CKD-E PI refit equat ion. Not Available [facility] (Outpatient) [address] [place], [id number], 07/14/2022 13:26:13 07/14/20 22 07/14/2022 BASIC METAB OLIC PANEL anion gap 21 mmol/ L 10-20 high Not Available [facility] (Outpatient) [address] [place], [id number], 07/14/2022 13:26:13 07/14/20 22 07/14/2022 LFTS (HEPA TIC PANEL ) alkaline phosphatase 78 U/L 39-117 Not Available [facility] (Out[facility]) [address] [place], [id number], 07/14/2022 13:26:15 07/14/20 22 07/14/2022 LFTS (HEPA TIC PANEL ) total bilirubin 0.5 mg/dL 0.0-1. 2 Not Available [facility] (Outpatient) [address] [place], [id number], 07/14/2022 13:26:15 07/14/20 22 07/14/2022 LFTS (HEPA TIC PANEL ) direct bilirubin <0.2 mg/dL 0-0.3 Not Available [facility] ([facility] [address] [place], [address], 07/14/2022 13:26:15 07/14/20 22 07/14/2022 LFTS (HEPA TIC PANEL ) bilirubin (indirect) NOT CALCUL ATED mg/dL 0-1.5 Not Available [facility] (Outpatient) [address] [place], [address], 07/14/2022 13:26:15 07/14/20 22 07/14/2022 LFTS (HEPA TIC PANEL ) AST 56 U/L 0-37 high Not Available [facility] (Outpatient) [address] [place], [address], 07/14/2022 13:26:15 07/14/20 22 07/14/2022 LFTS (HEPA TIC PANEL ) ALT 39 U/L 0-40 Not Available [facility] (Outpatient) [address] [place], [address], 07/14/2022 13:26:15 07/14/20 22 07/14/2022 LFTS (HEPA TIC PANEL ) total protein 6.9 g/dL 6.5-8. 0 Not Available [facility] (Outpatient) [address] [place], [address], 07/14/2022 13:26:15 07/14/20 22 07/14/2022 LFTS (HEPA TIC PANEL ) albumin 4.8 g/dL 3.9-4. 8 Not Available [facility] (Outpatient) [address] [place], [address], 07/14/2022 13:26:15 07/14/20 22 07/14/2022 LFTS (HEPA TIC PANEL ) globulin 2.1 g/dL 1-4.8 Not Available [facility] (Outpatient) [address] [place], [address], 07/14/2022 13:26:15 07/14/20 22 07/14/2022 LFTS (HEPA TIC PANEL ) A/G ratio 2.29 ratio 1.00-4 .80 Not Available [facility] (Outpatient) [address] [place], [address], 07/14/2022 13:26:15 07/14/20 22 07/14/2022 MAGNE SIUM magnesium 1.9 mg/dL 1.6-2. 6 Not Available [facility] (Outpatient) [address] [place], [address], 07/14/2022 13:26:16 07/24/20 22 07/24/2022 POCT GLUCO SE whole blood glucose 93 mg/dL 70-99 Not Available [facility] ([facility]patient) [address] [place], [address], 07/24/2022 09:26:57 07/24/20 22 07/24/2022 BASIC METAB OLIC PANEL sodium 144 mmol/ L 133-14 6 Not Available [facility] (Outpatient) [address] [place], [address], 07/24/2022 10:48:25 07/24/20 22 07/24/2022 BASIC METAB OLIC PANEL chloride 101 mmol/ L 96-108 Not Available [facility] ([facility]patient) [address] [place], [address], 07/24/2022 10:48:25 07/24/20 22 07/24/2022 BASIC METAB OLIC PANEL potassium 3.9 mmol/ L 3.3-5. 1 Speci men sligh tly hemol yzed, resul t may be false ly eleva lucho. Not Available [facility] (Outpatient) [address] [place], [address], 07/24/2022 10:48:25 07/24/20 22 07/24/2022 BASIC METAB OLIC PANEL CO2 27 mmol/ L 21-35 Not Available [facility] (Outpatient) [address] [place], [address], 07/24/2022 10:48:25 07/24/20 22 07/24/2022 BASIC METAB OLIC PANEL BUN 20 mg/dL 6-19 high Not Available [facility] (Outpatient) [address] [place], [address], 07/24/2022 10:48:25 07/24/20 22 07/24/2022 BASIC METAB OLIC PANEL creatinine 0.70 mg/dL 0.5-1. 5 Not Available [facility] (Outpatient) [address] [place], [address], 07/24/2022 10:48:25 07/24/20 22 07/24/2022 BASIC METAB OLIC PANEL glucose 88 mg/dL 70-99 Not Available [facility] (Outpatient) [address] [place], [address], 07/24/2022 10:48:25 07/24/20 22 07/24/2022 BASIC METAB OLIC PANEL calcium 8.0 mg/dL 8.4-10 .3 low Not Available [facility] ([facility]patient) [address] [place], [address], 07/24/2022 10:48:25 07/24/20 22 07/24/2022 BASIC METAB OLIC PANEL eGFR 105 mL/mi n/1.7 3m2 >59 Estim ated glome rular filtr ation rate calcu lated using the CKD-E PI refit equat ion. Not Available [facility] ([facility]patient) [address] [place], [address], 07/24/2022 10:48:25 07/24/20 22 07/24/2022 BASIC METAB OLIC PANEL anion gap 20 mmol/ L 10-20 Not Available [facility] ([facility]patient) [address] [place], [address], 07/24/2022 10:48:25 07/24/20 22 07/24/2022 LIPAS E lipase 57 U/L 16-63 Not Available [facility] ([facility]patient) [address] [place], [address], 07/24/2022 10:48:27 07/24/20 22 07/24/2022 LFTS (HEPA TIC PANEL ) alkaline phosphatase 60 U/L 39-117 Not Available [facility] (Outpatient) [address] [place], [address], 07/24/2022 10:48:28 07/24/20 22 07/24/2022 LFTS (HEPA TIC PANEL ) total bilirubin 0.5 mg/dL 0.0-1. 2 Not Available [facility] ([facility]patient) [address] [place], [address], 07/24/2022 10:48:28 07/24/20 22 07/24/2022 LFTS (HEPA TIC PANEL ) direct bilirubin <0.2 mg/dL 0-0.3 Not Available [facility] (Outpatient) [address] [place], [address], 07/24/2022 10:48:28 07/24/20 22 07/24/2022 LFTS (HEPA TIC PANEL ) bilirubin (indirect) NOT CALCUL ATED mg/dL 0-1.5 Not Available [facility] (Outpatient) [address] [place], [address], 07/24/2022 10:48:28 07/24/20 22 07/24/2022 LFTS (HEPA TIC PANEL ) AST 93 U/L 0-37 high Not Available [facility] (Outpatient) [address] [place], [address], 07/24/2022 10:48:28 07/24/20 22 07/24/2022 LFTS (HEPA TIC PANEL ) ALT 56 U/L 0-40 high Not Available [facility] ([facility]patient) [address] [place], [address], 07/24/2022 10:48:28 07/24/20 22 07/24/2022 LFTS (HEPA TIC PANEL ) total protein 5.9 g/dL 6.5-8. 0 low Not Available [facility] (Outpatient) [address] [place], [address], 07/24/2022 10:48:28 07/24/20 22 07/24/2022 LFTS (HEPA TIC PANEL ) albumin 4.1 g/dL 3.9-4. 8 Not Available [facility] (Outpatient) [address] [place], [address], 07/24/2022 10:48:28 07/24/20 22 07/24/2022 LFTS (HEPA TIC PANEL ) globulin 1.8 g/dL 1-4.8 Not Available [facility] (Outpatient) [address] [place], [address], 07/24/2022 10:48:28 07/24/20 22 07/24/2022 LFTS (HEPA TIC PANEL ) A/G ratio 2.28 ratio 1.00-4 .80 Not Available [facility] ([facility]) [address] [place], [address], 07/24/2022 10:48:28 07/24/20 22 07/24/2022 MAGNE SIUM magnesium 1.9 mg/dL 1.6-2. 6 Not Available [facility] ([facility]patient) [address] [place], [address], 07/24/2022 10:48:29 07/24/20 22 07/24/2022 LACTA TE lactate 3.39 mmol/ L 0.50-2 .20 critical high Criti lydia value : Resul ts smalls d to and read back by: liana oro ed Not Available [facility] ([facility]patient) [address] [place], [address], 07/24/2022 10:53:16 07/24/20 22 07/24/2022 VENOU S BLOOD GAS pH, venous 7.36 7.31-7 .41 Not Available [facility] ([facility]) [address] [place], [address], 07/24/2022 10:53:18 07/24/20 22 07/24/2022 VENOU S BLOOD GAS pCO2, venous 52.50 mmHg 41.00- 51.00 high Not Available [facility] ([facility]patient) [address] [place], [address], 07/24/2022 10:53:18 07/24/20 22 07/24/2022 VENOU S BLOOD GAS pO2, venous 68.20 mmHg 35.00- 40.00 high Not Available [facility] ([facility]patient) [address] [place], [address], 07/24/2022 10:53:18 07/24/20 22 07/24/2022 VENOU S BLOOD GAS HCO3, venous 29 mmol/ L 23-28 high Not Available [facility] ([facility]patient) [address] [place], [address], 07/24/2022 10:53:18 07/24/20 22 07/24/2022 VENOU S BLOOD GAS base excess venous 2.0 mmol/ L 0.0-3. 0 Not Available [facility] ([facility]patient) [address] [place], [address], 07/24/2022 10:53:18 07/24/20 22 07/24/2022 VENOU S BLOOD GAS so2, venous 90.80 % 60.00- 80.00 high Not Available [facility] ([facility]patient) [address] [place], [address], 07/24/2022 10:53:18 07/24/20 22 07/24/2022 VENOU S BLOOD GAS fo2hb, venous 89.40 % 71.00- 74.00 high Not Available [facility] ([facility]patient) [address] [place], [address], 07/24/2022 10:53:18 07/24/20 22 07/24/2022 VENOU S BLOOD GAS carboxy HGB 1.30 % 0-1.50 Not Available [facility] ([facility]) [address] [place], [address], 07/24/2022 10:53:18 07/24/20 22 07/24/2022 VENOU S BLOOD GAS methgb % 0.20 % 0-1.50 Not Available [facility] ([facility]patient) [address] [place], [address], 07/24/2022 10:53:18 07/24/20 22 07/24/2022 CBC AND DIFFE RENTI AL WBC 3.10 K/uL 4.00-1 1.00 low Not Available [facility] ([facility]) [address] [place] [address], [address], 07/24/2022 10:54:18 07/24/20 22 07/24/2022 CBC AND DIFFE RENTI AL RBC 4.56 M/uL 3.90-5 .69 Not Available [facility] ([facility]patient) [address] [place] [address], [address], 07/24/2022 10:54:18 07/24/20 22 07/24/2022 CBC AND DIFFE RENTI AL HGB 14.8 g/dL 12.4-1 7.3 Not Available [facility] ([facility]patient) [address] [place], [address], 07/24/2022 10:54:18 07/24/20 22 07/24/2022 CBC AND DIFFE RENTI AL HCT 43.1 % 37.0-5 1.0 Not Available [facility] ([facility]patient) [address] [place] [address], [address], 07/24/2022 10:54:18 07/24/20 22 07/24/2022 CBC AND DIFFE RENTI AL plt 113 K/uL 140-43 0 low Wright e in previ ous value s noted . Not Available [facility] (Outpatient) [address] [place] [address], [address], 07/24/2022 10:54:18 07/24/20 22 07/24/2022 CBC AND DIFFE RENTI AL MCV 94.5 fL 78.0-9 7.0 Not Available [facility] ([facility]patient) [address] [place] [address], [address], 07/24/2022 10:54:18 07/24/20 22 07/24/2022 CBC AND DIFFE RENTI AL MCH 32.5 pg 25.0-3 3.0 Not Available [facility] ([facility]patient) [address] [place], [address], 07/24/2022 10:54:18 07/24/20 22 07/24/2022 CBC AND DIFFE RENTI AL MCHC 34.3 g/dL 32.0-3 6.0 Not Available [facility] (Outpatient) [address] [place] [address], [address], 07/24/2022 10:54:18 07/24/20 22 07/24/2022 CBC AND DIFFE RENTI AL RDW 15.7 % 11.0-1 5.0 high Not Available [facility] (Outpatient) [address] [place] [address], [address], 07/24/2022 10:54:18 07/24/20 22 07/24/2022 CBC AND DIFFE RENTI AL MPV 8.3 fL 8.4-12 .8 low Not Available [facility] (Outpatient) [address] [place] [address], [address], 07/24/2022 10:54:18 07/24/20 22 07/24/2022 CBC AND DIFFE RENTI AL diff method Auto Not Available [facility] ([facility]patient) [address] [place] [address], [address], 07/24/2022 10:54:18 07/24/20 22 07/24/2022 CBC AND DIFFE RENTI AL neuts 62.9 % 43.0-7 5.0 Not Available [facility] (Outpatient) [address] [place], [address], 07/24/2022 10:54:18 07/24/20 22 07/24/2022 CBC AND DIFFE RENTI AL lymphs 18.4 % 18.2-4 7.4 Not Available [facility] (Outpatient) [address] [place], [address], 07/24/2022 10:54:18 07/24/20 22 07/24/2022 CBC AND DIFFE RENTI AL monos 15.8 % 4.00-1 1.00 high Not Available [facility] (Outpatient) [address] [place], [address], 07/24/2022 10:54:18 07/24/20 22 07/24/2022 CBC AND DIFFE RENTI AL eos 1.3 % 0.0-8. 0 Not Available [facility] (Outpatient) [address] [place], [address], 07/24/2022 10:54:18 07/24/20 22 07/24/2022 CBC AND DIFFE RENTI AL basos 1.0 % 0.0-2. 0 Not Available [facility] (Outpatient) [address] [place] [address], [address], 07/24/2022 10:54:18 07/24/20 22 07/24/2022 CBC AND DIFFE RENTI AL granulocytes , immature (%) 0.6 % 0.0-0. 9 Not Available [facility] (Outpatient) [address] [place] [address], [address], 07/24/2022 10:54:18 07/24/20 22 07/24/2022 CBC AND DIFFE RENTI AL absolute neuts 1.95 K/uL 1.80-7 .70 Not Available [facility] (Outpatient) [address] [place] [address], [address], 07/24/2022 10:54:18 07/24/20 22 07/24/2022 CBC AND DIFFE RENTI AL absolute lymphs 0.57 K/uL 1.00-3 .10 low Not Available [facility] (Outpatient) [address] [place] [address], [address], 07/24/2022 10:54:18 07/24/20 22 07/24/2022 CBC AND DIFFE RENTI AL absolute monos 0.49 K/uL 0.20-0 .80 Not Available [facility] (Outpatient) [address] [place], [address], 07/24/2022 10:54:18 07/24/20 22 07/24/2022 CBC AND DIFFE RENTI AL absolute eos 0.04 K/uL 0.00-0 .80 Not Available [facility] (Outpatient) [address] [place], [address], 07/24/2022 10:54:18 07/24/20 22 07/24/2022 CBC AND DIFFE RENTI AL absolute basos 0.03 K/uL 0.00-0 .09 Not Available [facility] (Outpatient) [address] [place], [address], 07/24/2022 10:54:18 07/24/20 22 07/24/2022 CBC AND DIFFE RENTI AL granulocytes , immature 0.02 K/uL 0.00-0 .05 Not Available [facility] (Outpatient) [address] [place], [address], 07/24/2022 10:54:18 07/24/20 22 07/24/2022 PT-IN R PT 10.9 sec 10.2-1 2.9 Not Available [facility] (Outpatient) [address] [place], [address], 07/24/2022 11:28:16 07/24/20 22 07/24/2022 PT-IN R INR 1.0 0.9-1. 1 Thera peuti c range for oral Vitam in K antag onist s: 2.0-3 .5 Not Available [facility] (Outpatient) [address] [place], [address], 07/24/2022 11:28:16 07/24/20 22 07/24/2022 LAB ADD ON contact information [id number] Not Available [facility] (Outpatient) [address] [place], [address], 07/24/2022 11:45:46 07/24/20 22 07/24/2022 LAB ADD ON test requested ETHANO L Not Available [facility] (Outpatient) [address] [place], [address], 07/24/2022 11:45:46 07/24/20 22 07/24/2022 LAB ADD ON status Add on order being proce ssed. Floor or provi jimmy will be notif ied if testi ng canno t be perfo rmed Not Available [facility] (Outpatient) [address] [place], [address], 07/24/2022 11:45:46 07/24/20 22 07/24/2022 LACTA TE lactate 4.21 mmol/ L 0.50-2 .20 critical high Criti lydia value : Resul ts smalls d to and read back by: michael bentley ed [id number] Not Available [facility] (Outpatient) [address] [place], [address], 07/24/2022 12:35:04 07/24/20 22 07/24/2022 NEREIDA OL, BLOOD ethanol 288 mg/dL <10 high Not Available [facility] (Outpatient) [address] [place], [address], 07/24/2022 13:04:37 07/24/20 22 07/24/2022 COVID TREY ZOE RESPI RATOR Y VIRAL ORDER (PRO) test ordered Rapid COVID has been ordere d Not Available [facility] ([facility]patient) [address] [place], [address], 07/24/2022 17:17:25 07/24/20 22 07/24/2022 COVID TREY ZOE RESPI RATOR Y VIRAL ORDER (PRO) specimen source/descr iption NASAL Not Available [facility] (Outpatient) [address] [place], [address], 07/24/2022 17:17:25 07/24/20 22 07/24/2022 COVID TREY ZOE RESPI RATOR Y VIRAL ORDER (PRO) sars-cov 2 (covid-19) PCR Not Detect ed not detect ed SARS- CoV-2 not detec lucho Negat juve resul ts do not precl ude SARS- CoV-2 infec tion and shoul d not be used as the sole basis for patie nt manag ement decis ions. Negat juve resul ts must be combi jennifer with clini lydia obser vatio ns, patie nt histo ry, and epide miolo gical infor matio n. This test has been autho rized by the FDA under an Emerg ency Use Autho rizat ion (EUA) for use by 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 Not Available [facility] (Outpatient) [address] [place] [address], [address], 07/24/2022 17:17:25 10/13/20 23 10/13/2023 CBC AND DIFFE RENTI AL WBC 3.27 K/uL 4.00-1 1.00 low Not Available [facility] (Outpatient) [address] [place] [address], [address], 10/13/2023 20:02:27 10/13/20 23 10/13/2023 CBC AND DIFFE RENTI AL RBC 4.38 M/uL 3.90-5 .69 Not Available [facility] (Outpatient) [address] [place] [address], [address], 10/13/2023 20:02:27 10/13/20 23 10/13/2023 CBC AND DIFFE RENTI AL HGB 14.5 g/dL 12.4-1 7.3 Not Available [facility] (Outpatient) [address] [place] [address], [address], 10/13/2023 20:02:27 10/13/20 23 10/13/2023 CBC AND DIFFE RENTI AL HCT 41.1 % 37.0-5 1.0 Not Available [facility] (Outpatient) [address] [place], [address], 10/13/2023 20:02:27 10/13/20 23 10/13/2023 CBC AND DIFFE RENTI AL plt 232 K/uL 140-43 0 Not Available [facility] (Outpatient) [address] [place], [address], 10/13/2023 20:02:27 10/13/20 23 10/13/2023 CBC AND DIFFE RENTI AL MCV 93.8 fL 78.0-9 7.0 Not Available [facility] (Outpatient) [address] [place], [address], 10/13/2023 20:02:27 10/13/20 23 10/13/2023 CBC AND DIFFE RENTI AL MCH 33.1 pg 25.0-3 3.0 high Not Available [facility] (Outpatient) [address] [place], [address], 10/13/2023 20:02:27 10/13/20 23 10/13/2023 CBC AND DIFFE RENTI AL MCHC 35.3 g/dL 32.0-3 6.0 Not Available [facility] ([facility]patient) [address] [place], [address], 10/13/2023 20:02:27 10/13/20 23 10/13/2023 CBC AND DIFFE RENTI AL RDW 13.0 % 11.0-1 5.0 Not Available [facility] (Outpatient) [address] [place], [address], 10/13/2023 20:02:27 10/13/20 23 10/13/2023 CBC AND DIFFE RENTI AL MPV 8.6 fL 8.4-12 .8 Not Available [facility] ([facility]patient) [address] [place], [address], 10/13/2023 20:02:27 10/13/20 23 10/13/2023 CBC AND DIFFE RENTI AL diff method Auto Not Available [facility] ([facility]patient) [address] [place], [address], 10/13/2023 20:02:27 10/13/20 23 10/13/2023 CBC AND DIFFE RENTI AL neuts 52.0 % 43.0-7 5.0 Not Available [facility] (Outpatient) [address] [place], [address], 10/13/2023 20:02:27 10/13/20 23 10/13/2023 CBC AND DIFFE RENTI AL lymphs 36.1 % 18.2-4 7.4 Not Available [facility] (Outpatient) [address] [place], [address], 10/13/2023 20:02:27 10/13/20 23 10/13/2023 CBC AND DIFFE RENTI AL monos 9.2 % 4.00-1 1.00 Not Available [facility] (Outpatient) [address] [place], [address], 10/13/2023 20:02:27 10/13/20 23 10/13/2023 CBC AND DIFFE RENTI AL eos 1.2 % 0.0-8. 0 Not Available [facility] (Outpatient) [address] [place], [address], 10/13/2023 20:02:27 10/13/20 23 10/13/2023 CBC AND DIFFE RENTI AL basos 0.9 % 0.0-2. 0 Not Available [facility] (Outpatient) [address] [place], [address], 10/13/2023 20:02:27 10/13/20 23 10/13/2023 CBC AND DIFFE RENTI AL granulocytes , immature (%) 0.6 % 0.0-0. 9 Not Available [facility] (Outpatient) [address] [place], [address], 10/13/2023 20:02:27 10/13/20 23 10/13/2023 CBC AND DIFFE RENTI AL absolute neuts 1.70 K/uL 1.80-7 .70 low Not Available [facility] (Outpatient) [address] [place], [address], 10/13/2023 20:02:27 10/13/20 23 10/13/2023 CBC AND DIFFE RENTI AL absolute lymphs 1.18 K/uL 1.00-3 .10 Not Available [facility] (Outpatient) [address] [place], [address], 10/13/2023 20:02:27 10/13/20 23 10/13/2023 CBC AND DIFFE RENTI AL absolute monos 0.30 K/uL 0.20-0 .80 Not Available [facility] (Outpatient) [address] [place], [address], 10/13/2023 20:02:27 10/13/20 23 10/13/2023 CBC AND DIFFE RENTI AL absolute eos 0.04 K/uL 0.00-0 .80 Not Available [facility] (Outpatient) [address] [place], [address], 10/13/2023 20:02:27 10/13/20 23 10/13/2023 CBC AND DIFFE RENTI AL absolute basos 0.03 K/uL 0.00-0 .09 Not Available [facility] (Outpatient) [address] [place], [address], 10/13/2023 20:02:27 10/13/20 23 10/13/2023 CBC AND DIFFE RENTI AL granulocytes , immature 0.02 K/uL 0.00-0 .05 Not Available [facility] (Outpatient) [address] [place], [address], 10/13/2023 20:02:27 10/13/20 23 10/13/2023 TOXIC OLOGY SCREE N, URINE urine cannabinoids NONE DETECT ED none detect ed Cutof f: 50 ng/mL Not Available [facility] ([facility]patient) [address] [place], [address], 10/13/2023 20:13:15 10/13/20 23 10/13/2023 TOXIC OLOGY SCREE N, URINE urine cocaine metab NONE DETECT ED none detect ed Cutof f: 300 ng/mL Not Available [facility] (Outpatient) [address] [place], [address], 10/13/2023 20:13:15 10/13/20 23 10/13/2023 TOXIC OLOGY SCREE N, URINE urine amphetamines NONE DETECT ED none detect ed Cutof f: 1000 ng/mL Not Available [facility] (Outpatient) [address] [place], [address], 10/13/2023 20:13:15 10/13/20 23 10/13/2023 TOXIC OLOGY SCREE N, URINE urine methadone NONE DETECT ED none detect ed Cutof f: 300 ng/mL Not Available [facility] (Outpatient) [address] [place], [address], 10/13/2023 20:13:15 10/13/20 23 10/13/2023 TOXIC OLOGY SCREE N, URINE urine opiates NONE DETECT ED none detect ed Cutof f: 300 ng/mL Not Available [facility] (Outpatient) [address] [place], [address], 10/13/2023 20:13:15 10/13/20 23 10/13/2023 TOXIC OLOGY SCREE N, URINE urine phencyclidin e NONE DETECT ED none detect ed Cutof f: 25 ng/mL Not Available [facility] (Outpatient) [address] [place], [address], 10/13/2023 20:13:15 10/13/20 23 10/13/2023 TOXIC OLOGY SCREE N, URINE urine oxycodone NONE DETECT ED none detect ed Cutof f: 300 ng/mL Not Available [facility] (Outpatient) [address] [place], [address], 10/13/2023 20:13:15 10/13/20 23 10/13/2023 TOXIC OLOGY SCREE N, URINE urine barbiturates NONE DETECT ED none detect ed Cutof f: 200 ng/mL Not Available [facility] (Outpatient) [address] [place], [address], 10/13/2023 20:13:15 10/13/20 23 10/13/2023 TOXIC OLOGY SCREE N, URINE urine benzodiazepi ne NONE DETECT ED none detect ed Cutof f: 200 ng/mL Not Available [facility] (Outpatient) [address] [place], [address], 10/13/2023 20:13:15 10/13/20 23 10/13/2023 TOXIC OLOGY SCREE N, URINE urine buprenorphin e NONE DETECT ED none detect ed Cutof f: 5 ng/mL Not Available [facility] (Outpatient) [address] [place], [address], 10/13/2023 20:13:15 10/13/20 23 10/13/2023 TOXIC OLOGY SCREE N, URINE fentanyl, urine NONE DETECT ED none detect ed Cutof f: 5 ng/mL INTER PRETA TION FOR TOXIC OLOGY PANEL : Thes e resul ts are uncon firme d and shoul d be used for Medic al Treat ment purpo ses only. Not Available [facility] (Outpatient) [address] [place], [address], 10/13/2023 20:13:15 10/13/20 23 10/13/2023 BASIC METAB OLIC PANEL sodium 145 mmol/ L 133-14 6 Not Available [facility] (Outpatient) [address] [place], [address], 10/13/2023 20:29:28 10/13/20 23 10/13/2023 BASIC METAB OLIC PANEL chloride 109 mmol/ L 96-108 high Not Available [facility] (Outpatient) [address] [place], [address], 10/13/2023 20:29:28 10/13/20 23 10/13/2023 BASIC METAB OLIC PANEL potassium 3.8 mmol/ L 3.3-5. 1 Not Available [facility] (Outpatient) [address] [place], [address], 10/13/2023 20:29:28 10/13/20 23 10/13/2023 BASIC METAB OLIC PANEL CO2 23 mmol/ L 21-35 Not Available [facility] (Outpatient) [address] [place], [address], 10/13/2023 20:29:28 10/13/20 23 10/13/2023 BASIC METAB OLIC PANEL BUN 12 mg/dL 6-19 Not Available [facility] (Outpatient) [address] [place], [address], 10/13/2023 20:29:28 10/13/20 23 10/13/2023 BASIC METAB OLIC PANEL creatinine 0.80 mg/dL 0.5-1. 5 Not Available [facility] (Outpatient) [address] [place], [address], 10/13/2023 20:29:28 10/13/20 23 10/13/2023 BASIC METAB OLIC PANEL glucose 92 mg/dL 70-99 Not Available [facility] (Outpatient) [address] [place], [address], 10/13/2023 20:29:28 10/13/20 23 10/13/2023 BASIC METAB OLIC PANEL calcium 9.1 mg/dL 8.4-10 .3 Not Available [facility] (Outpatient) [address] [place], [address], 10/13/2023 20:29:28 10/13/20 23 10/13/2023 BASIC METAB OLIC PANEL eGFR 101 mL/mi n/1.7 3m2 >59 Estim ated glome rular filtr ation rate calcu lated using the CKD-E PI refit equat ion. Not Available [facility] (Outpatient) [address] [place], [address], 10/13/2023 20:29:28 10/13/20 23 10/13/2023 BASIC METAB OLIC PANEL anion gap 17 mmol/ L 10-20 Not Available [facility] (Outpatient) [address] [place], [address], 10/13/2023 20:29:28 10/13/20 23 10/13/2023 LFTS (HEPA TIC PANEL ) alkaline phosphatase 48 U/L 39-117 Not Available [facility] (Outpatient) [address] [place], [id number], 10/13/2023 20:29:31 10/13/20 23 10/13/2023 LFTS (HEPA TIC PANEL ) total bilirubin <0.2 mg/dL 0.0-1. 2 Not Available [facility] (Outpatient) [address] [place], [address], 10/13/2023 20:29:31 10/13/20 23 10/13/2023 LFTS (HEPA TIC PANEL ) direct bilirubin <0.2 mg/dL 0-0.3 Not Available [facility] (Outpatient) [address] [place], [address], 10/13/2023 20:29:31 10/13/20 23 10/13/2023 LFTS (HEPA TIC PANEL ) bilirubin (indirect) NOT CALCUL ATED mg/dL 0-1.5 Not Available [facility] (Outpatient) [address] [place], [address], 10/13/2023 20:29:31 10/13/20 23 10/13/2023 LFTS (HEPA TIC PANEL ) AST 20 U/L 0-37 Not Available [facility] (Outpatient) [address] [place], [address], 10/13/2023 20:29:31 10/13/20 23 10/13/2023 LFTS (HEPA TIC PANEL ) ALT 18 U/L 0-40 Not Available [facility] (Outpatient) [address] [place], [address], 10/13/2023 20:29:31 10/13/20 23 10/13/2023 LFTS (HEPA TIC PANEL ) total protein 6.8 g/dL 6.5-8. 0 Not Available [facility] (Outpatient) [address] [place], [address], 10/13/2023 20:29:31 10/13/20 23 10/13/2023 LFTS (HEPA TIC PANEL ) albumin 4.7 g/dL 3.9-4. 8 Not Available [facility] (Outpatient) [address] [place], [address], 10/13/2023 20:29:31 10/13/20 23 10/13/2023 LFTS (HEPA TIC PANEL ) globulin 2.1 g/dL 1-4.8 Not Available [facility] (Outpatient) [address] [place], [address], 10/13/2023 20:29:31 10/13/20 23 10/13/2023 LFTS (HEPA TIC PANEL ) A/G ratio 2.24 ratio 1.00-4 .80 Not Available [facility] (Outpatient) [address] [place], [address], 10/13/2023 20:29:31 10/13/20 23 10/13/2023 ACETA MINOP HEN LEVEL acetaminophe n <5.0 ug/mL 15.0-3 0.0 low Not Available [facility] (Outpatient) [address] [place], [address], 10/13/2023 20:33:40 10/13/20 23 10/13/2023 NEREIDA OL, BLOOD ethanol 255 mg/dL <10 high Not Available [facility] (Outpatient) [address] [place], [address], 10/13/2023 20:33:43 10/13/20 23 10/13/2023 SALIC YLATE S salicylates <0.3 mg/dL 2.8-19 .9 low Not Available [facility] (Outpatient) [address] [place], [address], 10/13/2023 20:33:44 09/28/20 17 09/28/2017 audio gram No observ ation record ed. [email or web address] Not Available 2016 10:10:52 10/17/20 17 10/17/2017 XR, shoul jimmy No observ ation record ed. [facility] (Outpt Imaging) [address] [place], [address], 10/24/2017 09:57:50 06/01/20 20 06/01/2020 XR, hip No observ ation record ed. [email or web address] [facility] (Outpt Imaging) [address] [place], [address], 06/02/2020 17:00:04 07/08/20 20 07/08/2020 CT abdom en/pe lvis with contr ast INDICA TION: Nausea and vomiti ng. Abdomi nal pain, acute. TECHNI QUE: Abdome n and pelvis CT, includ ing multip lanar reform ations . Intrav enous contra st: Admini stered . Oral contra st: None. COMPAR RODNEY: None. FINDIN GS: Lower Chest: No mass. No pleura l or perica rdial effusi on. Liver: Normal . Biliar y System : Normal . Pancre as: Normal . Spleen : Normal . Adrena l Glands : Normal . Kidney s: Normal . Bowel: There are multip le loops of small bowel in the mid abdome n and pelvis with a transi tion point in the mid abdome n approx imatel y 1 cm above the level of the umbili cus (, 04/29). There is upstre am fecal materi al in the bowel loop, indica ting stasis . No bowel wall hypoen hancem ent or pneuma tosis to sugges t ischem ia. There is a small amount of reacti ve interl oop fluid. There is small to modera te coloni c stool. Normal append ix. Mesent naseem, Omentu m, and Perito neum: No pneumo perito neum. Small reacti ve free fluid. Pelvic Organs : Pelvic organs are not well visual ized due to streak artifa ct. The bladde r is modera tely disten ded. Lymph Nodes: No lympha denopa thy. Vascul ature: Unrema rkable . Bones and Soft Tissue s: No suspic ious osseou s abnorm ality. 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 IMPRES [place]: 1.High -grade small bowel obstru ction with a transi tion point just above the level of the umbili cus at midlin e, likely due to an adhesi on. No eviden ce to sugges t bowel wall ischem ia or infarc tion. Critic al result s were commun icated and docume nted using the Alert Notifi cation of Critic al Radiol ogy Result s (ANCR) system . Electr onical ly Signed by: Carlos Rodriguez on 020 8:20 PM Interp reted by: Carlos Rodriguez MD Signed by: Carlos Rodriguez MD 0 CC Recipi ents: Annabelle Rich, HYDROTEL OPERATOR - Fax Final result ANNABELLE RICH [email or web address] [facility] [address] [place] [address], [address], 07/13/2020 10:46:57 07/08/20 20 07/08/2020 CT, abdom en + pelvi s No observ ation record ed. [email or web address] [address], [address], 07/13/2020 10:46:58 07/09/20 20 07/09/2020 xr abdom en serie s supin e with decub itis/ erect and singl e view chest HISTOR Y: As above. COMPAR RODNEY: CT abdome n pelvis 020. ABDOME N SERIES RADIOG RAPH FINDIN GS: Views: 5. CHEST: Lines/ Tubes: None. Heart/ Medias tinum: Normal . Lungs: Lungs are clear. Stable eventr ated right hemidi aphrag m. Bones: No acute findin gs. Soft Tissue s: No acute findin gs. ABDOME N: Bowel: Bowel gas patter n is unchan ged from the CT gis administrator image with a paucit y of bowel gas in the mid lower abdome n. Contin ued dilate d upper abdomi nal small bowel loops with air-fl uid levels . No pneuma tosis. Soft Tissue s: No acute findin gs. Incide ntal pelvic phlebo liths. Bones: Bilate ral hip prosth eses. IMPRES [place]: 1.Stab le small bowel obstru ctive patter n. 2.No acute chest diseas e. Electr onical ly Signed by: Shon florez on 12:17 PM Interp reted by: Shon florez MD Signed by: Shon florez MD 0 Final result [facility] [address] [place] [address], [address], 07/13/2020 10:46:58 07/11/20 20 07/11/2020 xr abdom en serie s supin e with decub itis/ erect and singl e view chest Exam: XR ABDOME N SERIES SUPINE WITH DECUBI TIS/ER ECT AND SINGLE VIEW CHEST INDICA TION: Abdomi nal pain and weight loss. COMPAR RODNEY: 020. FINDIN GS: Lungs are free of consol idatio n and pleura l effusi ons bilate rally. Cardia c and medias tinal contou rs appear stable . Bowel loops reveal previo usly noted dilate d small bowel loops to appear signif icantl y improv ed, with residu al minima lly promin ent right lower quadra nt small bowel loops measur ing up to 3.3 cm transv erse dimens ion. No free air. IMPRES [place]: 1. Improv ed appear ance of previo usly noted dilate d small bowel loops. No free air. Electr onical ly Signed by: Addison Barnett on 020 6:40 AM Interp reted by: Addison Barnett MD Signed by: Addison Barnett MD 0 Final result SBO ANNABELLE BRAEDEN [email or web address] [facility] [address] [place] [address], [address], 07/13/2020 10:46:58 03/31/20 21 03/31/2021 xr knee 4 or more views (righ t) This image report has been auto-f inaliz ed and has not been read by a Radiol ogist. Interp retati on has been includ ed in the [facility] er encoun ter note for this date of servic e. Final result ANNABELLE BRAEDEN [email or web address] [facility] [address] [place] [address], [address], 03/31/2021 11:21:25 05/12/20 22 05/12/2022 CT, cervi lydia spine , w/o contr ast Reason for exam (per EHR order) : * Head trauma , abnorm al mental status (Age 19-64y ) TECHNI QUE: CT scans of: 1. Head, withou t intrav enous contra st. Multip lanar reform ations were create d. 2. Cervic al spine, withou t intrav enous contra st. Multip lanar reform ations were create d. COMPAR RODNEY: None. FINDIN GS: HEAD: Brain Parenc hyma: There are areas of hypode nsity in the perive ntricu lar white matter likely a manife statio n of chroni c small vessel diseas e. No midlin e shift, mass effect , parenc hymal hemorr sanford, or eviden ce of acute territ orial infarc t. Ventri cular System and Extra- Axial Spaces : No extra- axial fluid collec tions. Basila r cister ns are patent . No hydroc ephalu s. Calvar ium, Skull Base, and Sella: No calvar ial fractu re. No signif icant soft tissue hemato ma. Soft tissue swelli ng about the right orbit. Parana rony Sinuse s and Mastoi d Air Cells: Normal . Orbits : Normal . CERVIC AL SPINE: Cranio cervic al Juncti on: Normal atlant o-occi pital and atlant o-axia l relati onship s. Alignm ent and Curvat ure: No trauma tic malali gnment . Verteb mark: Multil evel degene rative endpla te change s. No acute fractu re. Disc Spaces : Multil evel degene rative disc height loss, most pronou nced at C6-7. Soft Tissue s: No prever tebral soft tissue swelli ng. Lung Apices : 5 mm right apical nodule (6:49) . IMPRES [place]: 1.No acute intrac ranial abnorm ality. 2.No acute fractu re or trauma tic malali gnment of the degene rative cervic al spine. 3.Soft tissue swelli ng about the right orbit withou t orbita l involv ement. 4.5 mm pulmon durga nodule . ATTEST ATION: [place], Carlos Rodriguez as teachi ng physic lizbet, have review ed the images for this case and if necess durga edited the report origin thuy anita d by Dewayne Moody i. Electr onical ly Signed by: Carlos Rodriguez on 022 9:13 PM Interp reted by: MD Dewayne Ralph i, MD, PhD Signed by: Carlos Rodriguez MD 2 Final result ANNABELLE HANSONZ [email or web address] [facility] [address] [place] [address] [place], [address], 05/13/2022 07:41:12 05/12/20 22 05/12/2022 CT, head, w/o contr ast Reason for exam (per EHR order) : * Head trauma , abnorm al mental status (Age 19-64y ) TECHNI QUE: CT scans of: 1. Head, withou t intrav enous contra st. Multip lanar reform ations were create d. 2. Cervic al spine, withou t intrav enous contra st. Multip lanar reform ations were create d. COMPAR RODNEY: None. FINDIN GS: HEAD: Brain Parenc hyma: There are areas of hypode nsity in the perive ntricu lar white matter likely a manife statio n of chroni c small vessel diseas e. No midlin e shift, mass effect , parenc hymal hemorr sanford, or eviden ce of acute territ orial infarc t. Ventri cular System and Extra- Axial Spaces : No extra- axial fluid collec tions. Basila r cister ns are patent . No hydroc ephalu s. Calvar ium, Skull Base, and Sella: No calvar ial fractu re. No signif icant soft tissue hemato ma. Soft tissue swelli ng about the right orbit. Parana rony Sinuse s and Mastoi d Air Cells: Normal . Orbits : Normal . CERVIC AL SPINE: Cranio cervic al Juncti on: Normal atlant o-occi pital and atlant o-axia l relati onship s. Alignm ent and Curvat ure: No trauma tic malali gnment . Verteb mark: Multil evel degene rative endpla te change s. No acute fractu re. Disc Spaces : Multil evel degene rative disc height loss, most pronou nced at C6-7. Soft Tissue s: No prever tebral soft tissue swelli ng. Lung Apices : 5 mm right apical nodule (6:49) . IMPRES [place]: 1.No acute intrac ranial abnorm ality. 2.No acute fractu re or trauma tic malali gnment of the degene rative cervic al spine. 3.Soft tissue swelli ng about the right orbit withou t orbita l involv ement. 4.5 mm pulmon durga nodule . ATTEST ATION: Carlos Malik as teachi tim physic lizbet, have review ed the images for this case and if necess durga edited the report origin david howard d by Dewayne Moody i. Electr onical ly Signed by: Carlos Rodriguez on 022 9:13 PM Interp reted by: MD Dewayne Ralph i, MD, PhD Signed by: Carlos Rodriguez MD 2 Final result ANNABELLE RICH [facility] [address] [place] [address], [address], 05/13/2022 07:41:13 07/14/20 22 07/14/2022 CT, head, w/o contr ast CT HEAD WITHOU T CONTRA ST TECHNI QUE: Multid etecto r-row CT of the head was perfor med withou t intrav enous contra st using tailor ed dose modula tion techni ques. Images were recons tructe d in the axial, mena l, and sagitt al planes . COMPAR RODNEY: CT HEAD WITHOU T CONTRA ST 2021- un-30 FINDIN GS: Brain Parenc hyma: No midlin e shift, mass effect , parenc hymal hemorr sanford, or eviden ce of acute territ orial infarc t. Ventri cular System and Extra- Axial Spaces : No extra- axial fluid collec tions. Basal cister ns are patent . No hydroc ephalu s. Osseou s and Extrac ranial Struct ures: No signif icant parana rony sinus diseas e. No orbita l abnorm ality. IMPRES [place]: No acute intrac ranial findin gs. Electr onical ly Signed by: Ashlyn Mcdonald on 07/14/20 22 1:16 PM Interp reted by: Ashlyn Mcdonald MD Signed by: Ashlyn Mcdonald MD 07/14/22 Final result etoh [facility]ELLE [facility] [place] [address] Diagnostic Imaging [address] [place] [address], [address], 07/14/2022 15:29:25 07/24/20 22 07/24/2022 xr chest Pa and later al 2 views XR CHEST PA AND LATERA L 2 VIEWS COMPAR RODNEY: None. FINDIN GS: Device s/Tube s/Line s: None. Lungs: No focal consol idatio n or pulmon durga edema. Mild right base subseg mental atelec tasis. Pleura : No pleura l effusi on or pneumo thorax . Heart/ Medias tinum: Normal heart and medias tinum. Bones/ Soft Tissue s: No signif icant skelet al abnorm ality. IMPRES [place]: Mild left base subseg mental atelec tasis. No focal consol idatio n or pulmon durga edema. Electr onical ly Signed by: Allie reynolds on 022 11:14 AM Interp reted by: Mitzi reynolds MD Signed by: Mitzi reynolds MD 2 Final result hypoxi a rule out pneumo jessica ANNABELLE RICH [facility] [address] [place], [address], 07/25/2022 09:59:45 07/27/20 23 07/27/2023 CT, head, w/o contr ast No observ ation record ed. [facility] (Medical Records) [address] [place], [address], 07/27/2023 13:17:11 07/27/20 23 07/27/2023 XR, chest No observ ation record ed. [facility] (Medical Records) [address] [place], [address], 07/27/2023 13:23:27 10/13/20 23 10/13/2023 CT, head, w/o contr ast CT CERVIC AL SPINE WITHOU T CONTRA ST, CT HEAD WITHOU T CONTRA ST Reason for exam (per EHR order) : * Neck trauma , intoxi cated or obtund ed (Age >= 16y) TECHNI QUE: CT scans of: * Head, withou t intrav enous contra st. Multip lanar reform ations were create d. * Cervic al spine, withou t intrav enous contra st. Multip lanar reform ations were create d. COMPAR RODNEY: Jul 2022. FINDIN GS: HEAD: Brain Parenc hyma: No midlin e shift, mass effect , parenc hymal hemorr sanford, or eviden ce of acute territ orial infarc t. Ventri cular System and Extra- Axial Spaces : No extra- axial fluid collec tions. Basila r cister ns are patent . No hydroc ephalu s. Calvar ium, Skull Base, and Sella: No calvar ial fractu re. No signif icant soft tissue hemato ma. Parana rony Sinuse s and Mastoi d Air Cells: Normal . Orbits : Normal . CERVIC AL SPINE: Cranio cervic al Juncti on: Normal atlant o-occi pital and atlant o-axia l relati onship s. Alignm ent and Curvat ure: No trauma tic malali gnment . Verteb mark and disc spaces : No acute fractu re. Multil evel degene rative change s with disc height narrow ing, endpla te osteop hytes and facet arthro emily. Soft Tissue s: No prever tebral soft tissue swelli ng. Lung Apices : Normal . IMPRES [place]: 1. No acute intrac ranial abnorm ality. 2. No acute fractu re or trauma tic malali gnment involv ing the cervic al spine. Electr onical ly Signed by: Keegan russell on 023 7:30 PM Interp reted by: Keegan Mcallister MBBS Signed by: Keegan Mcallister MBBS 3 Final result ANNABELLE CARYLMAJO RICH [email or web address] [facility] [address] [facility], [place], [address], 10/16/2023 10:51:38 10/13/20 23 10/13/2023 CT, cervi lydia spine , w/o contr ast CT CERVIC AL SPINE WITHOU T CONTRA ST, CT HEAD WITHOU T CONTRA ST Reason for exam (per EHR order) : * Neck trauma , intoxi cated or obtund ed (Age >= 16y) TECHNI QUE: CT scans of: * Head, withou t intrav enous contra st. Multip lanar reform ations were create d. * Cervic al spine, withou t intrav enous contra st. Multip lanar reform ations were create d. COMPAR RODNEY: Jul 2022. FINDIN GS: HEAD: Brain Parenc hyma: No midlin e shift, mass effect , parenc hymal hemorr sanford, or eviden ce of acute territ orial infarc t. Ventri cular System and Extra- Axial Spaces : No extra- axial fluid collec tions. Basila r cister ns are patent . No hydroc ephalu s. Calvar ium, Skull Base, and Sella: No calvar ial fractu re. No signif icant soft tissue hemato ma. Parana rony Sinuse s and Mastoi d Air Cells: Normal . Orbits : Normal . CERVIC AL SPINE: Cranio cervic al Juncti on: Normal atlant o-occi pital and atlant o-axia l relati onship s. Alignm ent and Curvat ure: No trauma tic malali gnment . Verteb mark and disc spaces : No acute fractu re. Multil evel degene rative change s with disc height narrow ing, endpla te osteop hytes and facet arthro emily. Soft Tissue s: No prever tebral soft tissue swelli ng. Lung Apices : Normal . IMPRES [place]NA: 1. No acute intrac ranial abnorm ality. 2. No acute fractu re or trauma tic malali gnment involv ing the cervic al spine. Electr onical ly Signed by: Keegan russell on 023 7:30 PM Interp reted by: Keegan Mcallister MBBS Signed by: Keegan Mcallister MBBS 3 Final result ANNABELLE RICH [email or web address] [facility] [address], [place], [address], 10/16/2023 10:51:38 Result Notes None recorded. Problems Name Problem SNOMED Code Status Onset Date Resolution Date Notes Provider Name and Address Organization Details Recorded Time Tobacco dependence, episodic 022552972 Completed 201612/25/2017 [place], [address], [facility] 8 13:21:13 Ex-smoker 6916610 Active 2017 [place], [address], [facility] 8 13:15:50 Deep venous thrombosis 558330313 Active 2017 [place]O [place], [address], [facility] 8 13:15:53 Mixed hyperlipide kassi 462426836 [place], [address], [facility] 6 15:34:08 Neoplasm of uncertain behavior of skin 21793628 Completed 10/02/2013 R[place]ANDO [place], [address], [facility] 6 15:12:15 Allergic rhinitis caused by pollen 10946022 [place], [address], [facility] 6 15:12:15 Hearing loss 69686268 [place], [address], [facility] 6 15:34:08 Overweight 437071151 [place], [address], [facility] 6 15:34:08 Impacted cerumen 32919498 Completed 10/02/2013 Gen Aldana PA-C [address] [place], [place] [address], [address], [facility] 6 15:12:15 Chronic alcoholism in remission 715559903 Active Gen Aldana PA-C [address] [place] [address] [place], [address], [facility] 6 15:34:08 Anxiety state 130257514 Active Gen Aldana PA-C [address] [place] [address] [place], [address], [facility] 6 15:34:08 Insomnia 292415275 Active Gen Aldana PA-C [address] [place] [address] [place], [address], [facility] 6 15:12:15 Benign prostatic hyperplasia 367382836 Active Gen Aldana PA-C [address] [place], [place] [address], [address], [facility] 6 15:12:15 Problem Notes None recorded. Procedures Surgical History Date Name Laterality Status Provider Name and Address Organization Details Recorded Time 6 Smoking cessation counseling completed TAURUS [facility] 09/23/2016 07:19:31 4 Destinee - Colonoscopy completed Sarkis Felipe MD [address] [place] [address], [phone], [facility] 04/25/2014 11:47:03 9 Hip Replacement completed Gen Aldana PA-C [address] [place] [address], [address], [facility] 12/02/2011 10:38:13 8 Arthroscopy completed Gen Aldana PA-C [address] [place] [address], [phone], [facility] 12/02/2011 10:38:13 Imaging Results Imaging Date Name Status LastModified by Organiz ation Details LastModified Time 09/28/2017 audiogram completed lisa Information no t available 09/28/2017 10:10:52 10/17/2017 [facility] [address] [place], [address], 10/24/2017 09:57:50 06/01/2020 XR, hip completed [email or web address] [facility] (Outpt Imaging) [address] , [place], [address], 06/02/2020 17:00:04 07/08/2020 CT abdomen/pelvis with contrast completed [address] [facility] [address] [place] [address], [address], 07/13/2020 10:46:57 07/08/2020 CT, abdomen + pelvis completed [address], [address], 07/13/2020 10:46:58 07/09/2020 xr abdomen series supine with decubitis/erec t and single view chest completed [address] [facility] [address] [place] [address], [address], 07/13/2020 10:46:58 07/11/2020 xr abdomen series supine with decubitis/erec t and single view chest completed [address] [facility] [address] [place] [address], [address], 07/13/2020 10:46:58 03/31/2021 xr knee 4 or more views (right) completed [address] [facility] [address] [place] [address], [address], 03/31/2021 11:21:25 05/12/2022 CT, cervical spine, w/o contrast completed [address] [facility] [address] [place] [address], [address], 05/13/2022 07:41:12 05/12/2022 CT, head, w/o contrast completed [address] [facility] [address] [place] [address], [address], 05/13/2022 07:41:13 07/14/2022 CT, head, w/o contrast completed [address] [facility] [address] [place] [address], [address], 07/14/2022 15:29:25 07/24/2022 xr chest Pa and lateral 2 views completed [email or web address] [facility] [address] [place] [address], [address], 07/25/2022 09:59:45 07/27/2023 CT, head, w/o contrast completed [facility] (Medical Records) [address] [place] [address], [address], 07/27/2023 13:17:11 07/27/2023 XR, chest completed [facility] (Medical Records) [address] [place] [address], [address], 07/27/2023 13:23:27 10/13/2023 CT, head, w/o contrast completed [address] [facility] [address] [place] [address], [address], 10/16/2023 10:51:38 10/13/2023 CT, cervical spine, w/o contrast completed [address] [facility] [address] [place] [address], [address], 10/16/2023 10:51:38 Procedure Notes None recorded. Medical Equipment None Reported. Allergies No known drug allergies Medications Name Sig Start Date Stop Date Status Note LastModified by Organization Details LastModified Time cyclobenzap rine 10 mg tablet Take 1 tablet 3 times a day by oral route. 2013 active Not Available Not Available Not Avai lable clonidine HCl 0.1 mg tablet Take 1 tablet 3 times a day by oral route as needed. 2017 active Not Available Not Available Not Avai lable gabapentin 600 mg tablet Take 1 tablet 3 times a day by oral route. 12/25 completed Not Available Not Available Not Available haloperidol 5 mg tablet Take 1 tablet twice a day by oral route at bedtime. 10/24 completed Not Available Not Available Not Available nabumetone 750 mg tablet Take 1 tablet twice a day by oral route. active Not Available Not Available No t Available trazodone 50 mg tablet Take 1 tablet by oral route at bedtime. 10/24 completed Not Available Not Available Not Available nicotine (polacrilex ) 2 mg gum Chew 1 piece of gum every 2 hours by oral route as needed. 2016 active Not Available Not Available Not Avai lable Vicodin 5 mg-500 mg tablet Take 1 tablet every 6 hours by oral route as needed for sleep or severe pain. 2011 active Not Available Not Available Not Avai lable meloxicam 15 mg tablet TAKE 1 TABLET BY MOUTH EVERY DAY active Not Available Not Available No t Available naltrexone 50 mg tablet Take 1 tablet every day by oral route. 12/13 completed Not Available Not Available Not Available hydroxyzine HCl 50 mg tablet Take 1 tablet 3 times a day by oral route. 2017 active Not Available Not Available Not Avai lable Nicoderm CQ 7 mg/24 hr daily transdermal patch Apply 1 patch every day by transderm al route. 2017 active Not Available Not Available Not Avai lable citalopram 20 mg tablet TAKE 1 TABLET BY MOUTH DAILY 2017 active Not Available Not Available Not Avai lable trazodone 100 mg tablet Take 1 tablet every day by oral route at bedtime. 2017 active Not Available Not Available Not Avai lable Nicoderm CQ 14 mg/24 hr daily transdermal patch Apply 1 patch every day by transderm al route. 2017 active Not Available Not Available Not Avai lable nicotine 21 mg/24 hr daily transdermal patch Apply 1 patch every day by transderm al route. active Not Available Not Available No t Available Librium 25 mg capsule Take 1 capsule twice a day by oral route. 12/25 completed Not Available Not Available Not Available gabapentin 300 mg capsule TAKE 2 CAPSULES BY MOUTH TWICE DAILY AND RAISE TOLERATED 10/24 completed Not Available Not Available Not Available folic acid 1 mg tablet Take 1 tablet every day by oral route. active Not Available Not Available No t Available pyridoxine (vitamin B6) 100 mg tablet Take 1 tablet every day by oral route. active Not Available Not Available No t Available naproxen 500 mg tablet Take 1 tablet twice a day by oral route as needed. 10/24 completed Not Available Not Available Not Available Lexapro 10 mg tablet Take 1 tablet every day by oral route. 10/24 completed Not Available Not Available Not Available acamprosate 333 mg tablet,mani yed release Take 2 tablets 3 times a day by oral route. 2016 active Not Available Not Available Not Avai lable Nicorelief 4 mg gum CHEW 1 PIECE OF GUM EVERY 2 HOURS NEEDED 2017 active Not Available Not Available Not Avai lable cyanocobala min (vitamin B-12) 1 tab daily active Not Available Not Available No t Available Vitamin D3 active Not Available Not Av ailable Not Available Vivitrol 380 mg intramuscul ar suspension, extended release Inject 4 mL every 4 weeks by intramusc ular route. 10/24 completed Not Available Not Available Not Available calcium 500 mg (as carb,cit)-m agnesium 250 mg-vit D3 200 unit tablet active Not Available Not Available Not Available Multi For Him (with lycopene) active Not Available Not Available No t Available Eliquis 5 mg tablet Take 0.5 tablets twice a day by oral route as directed. 2017 active Not Available Not Available Not Avai lable Vitals Date Recorded Body height Provider Name an d Address Organization Details Last Updated DateTime 04/03/2017 173.36 cm Gen Aldana PA-C [address] [place] [address], [phone], [facility] 04/03/2017 16:40:25 Date Recorded Body height Body weight Body mass index (BMI) Heart rate Systolic blood pressure Diastolic blood pressure Provider Name and Address Organization Details Last Updated DateTime 7 173.36 cm 17465.9 2 g 29.3 kg/m2 72 /min 112 mm[Hg] 68 mm[Hg] Patdarren Henry [facility] 7 13:11:52 Date Recorded Body height Body mass index (BMI) Body weight Heart rate Systolic blood pressure Diastolic blood pressure Provider Name and Address Organization Details Last Updated DateTime 7 173.36 cm 27.1 kg/m2 25130.1 3 g 80 /min 98 mm[Hg] 72 mm[Hg] Cassandra Horton MA [facility] 7 07:30:37 Date Recorded Body height Body mass index (BMI) Body weight Heart rate Oxygen saturation Oxygen saturation in Arterial blood by Pulse oximetry Systolic blood pressure Diastolic blood pressure Provider Name and Address Organization Details Last Updated DateTime 8 173.36 cm 27.2 kg/m2 58699.3 3 g 81 /min 94 % 94 % 128 mm[Hg] 80 mm[Hg] Sharon Pugh [facility] 8 12:44:42 Social History Question Answer Notes LastModified by Organizat ion Details LastModified Time Tobacco Smoking Status [facility] 07:29:04 Do You Have An Advance Directive? Yes Information not available 01/22/2016 What Is Your Level Of Alcohol Consumption? None Alcoholic, Sober 09/04/15 Information not available 04/02/2015 Do You Wear A Helmet When Biking? Yes Information not available 01/22/2016 What Is Your Level Of Caffeine Consumption? Moderate 1 Cup/day Information not available 01/22/2016 How Much Tobacco Do You Chew? None Was 1 Tin A Day Information not available 12/02/2011 What Type Of Diet Are You Following? REGULAR Information not available 12/02/2011 Which Illicit Or Recreational Drugs Have You Used? None Information not available 12/02/2011 Education 2 Year College Informatio n not available 12/02/2011 What Is Your Occupation? Unemployed Information not available 01/22/2016 How Many Days In The Past Year Have You Had A Heavy Drinking Consumption (4+ Female, 5+ Male)? 0 Information not available 01/22/2016 Are There Any Guns Present In Your Home? No Information not available 12/02/2011 Live Alone Or With Others? With Others Information not available 01/22/2016 Patient Has Health Care Proxy Signed And In Chart No Vijay Andrade, Brother [email or web address] Information not available 10/26/2018 Marital Status Informatio n not available 12/02/2011 Mosquito Repellent Used Routinely No Information not available 01/22/2016 What Was The Date Of Your Most Recent Tobacco Screening? 12/25/2017 Information not available 06/05/2019 How Many Children Do You Have? 3 Arti 1986, Aneudy 1991, Rolando 1994 (live In [place]) Information not available 12/02/2011 Seat Belts Used Routinely Yes Information not available 12/02/2011 Are You Sexually Active? No Information not available 12/02/2011 Smoke Alarm In Home Yes Information not available 12/02/2011 General Stress Level Medium Information not available 01/22/2016 Do You Use Sunscreen Routinely? No Information not available 01/22/2016 Sex: Unknown Functional Status None recorded. Mental Status None recorded. Family History Relationship Description Onset Age of this Age Resolved Age Notes LastModified by Organization Details LastModified Time Mother Hypertensive disorder previo usly record ed as Hypert ension [email or web address] Not available 01/22/2016 15:12:54 Sister Multiple sclerosis 45 [email or web address] Not available 2015 15:12:54 Father Malignant tumor of prostate 40 57 mets to colon (previ ously record ed as Cancer - Prosta te) [id number] Not available 06/24/2013 03:00:24 Notes:paternal uncles 6 0, 61 Medical History Condition Response Hearing Loss Y Hyperlipidemia Y Benign Prostatic Hypertrophy Y Immunizations Vaccine Type Date Status Note Provider Nam e and Address Organization Details Recorded Time Influenza, split virus, trivalent, preservative 2 completed Not Available [facility] 11/30/2019 02:27:10 Influenza, split virus, trivalent, PF 3 completed Not Available [facility] 11/30/2019 02:39:40 Hep B, unspecified formulation 9 completed JULIETA Arellano [facility] 12/27/2011 08:14:47 Hep B, unspecified formulation 0 completed JULIETA Arellano [facility] 12/27/2011 08:14:47 Td(adult) unspecified formulation 9 completed JULIETA Arellano, [facility] 12/27/2011 08:14:47 Hep B, unspecified formulation 9 completed JULIETA Arellano, [facility] 12/27/2011 08:14:47 Influenza, split virus, quadrivalent, PF 6 completed Not Available [facility] 11/30/2019 02:36:28 Influenza, split virus, quadrivalent, PF 6 completed Not Available [facility] 11/30/2019 02:30:31 Influenza, split virus, quadrivalent, preservative 8 completed Sharon govea, [facility] 12/25/2017 12:43:46 Past Encounters Encounter ID Performer Location Encounter Start Date Encounter Closed Date Diagnosis/Indication Diagnosis SNOMED-CT Code Diagnosis ICD10 Code Diagnosis Note [id number] ROLANDO Holloway [facility], OFFICE [address] [place] [address] [place], [place] [address] 12/02/2011 09:47:31 12/02/2011 10:56:24 [id number] [facility], OFFICE [address] [place] [address] [place] [address] 02/09/2012 14:08:52 02/09/2012 15:11:09 [id number] [facility], OFFICE [address] [place] [address] [place] [address] 04/12/2012 13:01:36 04/12/2012 13:33:44 [id number] Physical Therapy, [address] [facility] [place] [address] 04/24/2012 09:51:29 04/25/2012 10:17:46 [id number] Physical Therapy, [place] [address] [facility] [place] [address] 04/25/2012 10:42:50 04/27/2012 08:34:26 [id number] ROLANDO Holloway, [facility], OFFICE [address] [place] [address] [facility] [place] [address] 10/18/2012 12:52:30 10/18/2012 13:45:45 [id number] JULIETA Arellano [facility], OFFICE [address] [place] [address] JOBY cortes [address] 01/15/2013 08:55:20 01/15/2013 09:55:36 [id number] Gen Aldana PA-C [facility], OFFICE [address] [facility] [place] [address] 04/16/2013 16:10:42 04/17/2013 11:53:30 [id number] Poppy Reduntain [facility], OFFICE [address] [facility] JOBY cortes [address] 10/03/2013 16:14:50 10/03/2013 16:56:49 Influenza vaccine needed [id number] 106 Tremor 62793410 I reassured pt that his tremor is not consistent with Parkinson' s disease, in that it is bilateral, both at rest and with motion, 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 Benign essential tremor seems more likely, vs anxiety even though he denies he is anxious. Even though he states alcohol does not make it better, I am not certain this is accurate as he is a rather poor historian. For now, I asked him to stop taking citalopram and wait for 2-3 weeks. If still as severe, should again follow up. Ideally, he would bring family or his GF to help clarify what the concern is, since they put him up to this visit. Chronic al coholism in remission 275754909 Anxiety is significan t comorbidit y that has driven drinking in past. Congratula lucho pt on again quitting EtOH, encouraged him to continue. Continue with therapy. Going to AA, recommende d continuing . Elevated blood-pressure reading without diagnosis of hypertension 476605027 BP reading high today, goal under 140/90. DASH diet handout given. Recommend regular vigorous exercise, gradual weight loss. Instructed to take BPs 2-3 times weekly at home or at a pharmacy and keep a log. Follow up in 1-2 months for a PHA and bring log and BP equipment. Discussed starting medication if still not controlled . Screening for malignant neoplasm of colon [id number] [facility], OFFICE [address] [facility] [place] [address] 01/17/2014 17:37:10 01/20/2014 08:48:11 Injury of nerve of upper extremity 759761824 [id number] Chela Cueto LPN , [facility], OFFICE [address] [place] [address] 02/13/2014 08:24:43 02/13/2014 09:31:36 Cervical radiculopathy 58165900 Left C7 radiculopa thy. Has had MRI. Refer to Dr Perrin for surgical consult. Recommende d calling [facility] to schedule injection as well. Restart gabapentin at 600mg am and qhs. Trial muscle relaxers. Follow up with me as needed. [id number] [facility], [facility] [address] [place] [address] 04/25/2014 09:55:50 04/25/2014 12:26:29 [id number] Gen Aldana PA-C , [facility], OFFICE [address] [place] [address] 04/02/2015 11:15:54 04/02/2015 11:53:41 Chronic alcoholism in remission 074967542 Anxiety is significan t comorbidit y that has driven drinking. Congratula lucho pt on again quitting EtOH, encouraged him to continue. Continue with therapy. Restart med. He took handouts on Vipassana meditation , which his therapist has strongly recommende [place]. I also suggested he try this and discussed basic info about courses. Anxiety state 429076895 Increased anxiety after quitting drinking, signif dual diagnosis. Encouraged to continue; continue with therapist. Continue AA, restart citalopram which helped in the past. Overweight 275809630 I reassured pt that his weight loss is completely reasonable given that he has mostly stopped drinking beer and also does heavy physical work. BMI actually still slightly in overweight range at 26. [id number] Cyn Moya D.O. , [facility], OFFICE [address] [place] [address] 08/19/2015 16:01:06 08/19/2015 16:38:22 Alcohol dependence 00061368 F10.20 I encouraged Aneudy to continue to work with [facility] for an inpatient detox bed for alcohol. Discourage d him from attempting to do this at home due to potential safety concerns. No evidence of withdrawal at this time. He will let us know if he needs any additional assistance . [id number] Gen Aldana PA-C , [facility], OFFICE [address] [facility] [place] [address] 01/22/2016 14:21:37 01/22/2016 15:29:51 Adult health examination 211816445 Z00.00 see Risk Assessment and Lifestyle Change Counseling section above. UTD colonoscop y, due 2018. Vaccines UTD. Counseling 163384369 Z71 .9 Active or passive immunization 387113403 Z23 Mixed hyperlipidemia 267 336240 E78.2 LDL = 157, not on statin, OK to stay off considerin g poor evidence for benefit. Overweight 632713697 E66 .3 Regained 24 lbs since last visit less than a year ago. Diet, exercise, weight loss. Hearing loss 81845319 H9 1.93 lifelong as result of premature per pt. Hears reasonably well with bilateral hearing aids. Chronic al coholism in remission F10.21 Anxiety is significan t comorbidit y that has driven drinking. Congratula lucho pt on again quitting EtOH, encouraged him to continue. Now sober 5.5 months. Living in sober house for another 6 mo or so. Continue with therapy and SSRI. Anxiety state F41.1 signif dual diagnosis. Encouraged to continue citalopram and with therapist. Shoulder pain 28972825 M 25.512 L shoulder pain after workouts with excellent ROM without pain on exam today. Location of pain suggests bicipital tendinitis but not confirmed with special testing, which makes RC disorder seem more likely. I suggested PT but he would prefer to work on RC exercises and contact me for referral later if desired. [id number] ROLANDO Holloway, [facility], OFFICE [address] [facility] [place] [address] 09/23/2016 07:01:06 09/23/2016 07:47:56 Active or passive immunization 182633206 Z23 Cigarette smoker 6786154 7 F17.210 Tobacco user 942864527 Z 72.0 chews. will provide 7mg patch as requested. Follow up 2 weeks. Anxiety state 642993015 F41.1 signif dual diagnosis. Encouraged to continue citalopram and restart with therapist- -not interested in the latter. Continuous chronic alcoholism 449056214 F10.20 Anxiety is significan t comorbidit y that has driven drinking. Back to drinking half a gallon of liquor at a sitting for the past month. Still on SSRI but not at all interested in restarting therapy or AA. Wants vivitrol. I explained the relation between this and PO naltrexone . Will have to take PO naltrexone first for a month and make sure he can stay sober, then can consider vivitrol. He's willing, will prescribe. Since he's drinking so much, I warned him about alcohol w/d and told him to restart gabapentin which he was taking for back pain after surgery. Follow up with me in two weeks. [id number] JULIETA Walton, [facility], OFFICE [address] [facility] [place] [address] 12/13/2016 12:37:36 12/13/2016 13:19:41 Continuous chronic alcoholism 931949850 F10.20 Anxiety is significan t comorbidit y that has driven drinking. he says he has not been drinking for the past week. He did show up at the ER intoxicate d twice during the month that vivitrol was supposed to be effective (he reports getting his first shot 11/08 at [facility]). Still on SSRI and not at all interested in restarting therapy or AA. As he has at least tolerated it in the past, will again provide vivitrol. I discussed with nursing who confirmed with Jessica that he has no copay nor is a PA needed--or dered, to be administer ed today. Follow up for next shot in four weeks. Anxiety state 717510684 F41.1 signif dual diagnosis. Encouraged to continue citalopram . He is not interested in therapy. He expresses interest in Vipassana meditation --I gave him website addresses and a pamphlet. Cigarette smoker 2134157 7 F17.210 Tobacco user 169619500 Z 72.0 chews. will provide 14mg patch as requested. Follow up 2 weeks. [id number] JULIETA Walton, [facility], OFFICE [address] [facility] [place] [address] 01/10/2017 12:53:15 01/10/2017 13:17:37 Chronic alcoholism in remission 759487528 F10.21 [id number] JULIETA Byers, [facility], OFFICE [address] [place] [address] 02/07/2017 14:25:54 02/07/2017 16:14:21 Alcohol dependence 35601404 F10.20 [id number] Nyasia Taylor LPN , [facility], OFFICE [address] [place] [address] 03/07/2017 12:50:45 03/07/2017 13:18:52 Chronic alcoholism in remission 200909603 F10.21 [id number] Nettie Samaniego LPN , [facility], OFFICE [address] [place] [address] 04/03/2017 12:36:59 04/03/2017 13:22:05 Chronic alcoholism in remission 542007996 F10.21 [id number] Gen Aldana PA-C , [facility], OFFICE [address] [place] [address] 04/07/2017 12:39:18 04/07/2017 13:51:06 Adult health examination 235895252 Z00.00 see Risk Assessment and Lifestyle Change Counseling section above. Colonoscop y in 2013 with 1.2 cm sessile polyp with FH early colon cancer. Wade was to repeat in 1 year due to this and FH. Ordered. Vaccines UTD. Adding on hep C test. Counseling 052113177 Z71 .9 Chronic al coholism in remission 732783471 F10.21 doing well on vivitrol for last couple of months, continue. Impaired f asting glycemia 265983125 R73.01 =104 in 2011, recheck now. Screening for disorder 809377079 Z11.59 Tick bite without infection 168060106 W57.XXXA unlikely he has Lyme disease given lack of hx of a flu-like illness, but the rash he describes was about 6 in diameter which is rather large just to be due to tick saliva. Will check Lyme antibody test to verify (since he tells me he has never had Lyme that he knows of). No abx indicated. I reminded him to do daily tick checks. Screening for malignant neoplasm of colon 590180405 Z12.11 Referral for a DIRECT booked colonoscop y. This patient is a healthy ASA Class 1 or 2 patient (only mild systemic disease), or a STABLE, well controlled insulin dependent diabetic. They do not have serious cardiac disease ie UT/angiopl asty within 1 year, symptomati c CHF; renal failure with CKD 4 or 5; take Coumadin, Plavix, Aggrenox, etc. Tobacco de pendence, episodic 316051244 F17.290 chews tobacco. Will refill patches as requested, along with 2mg gum. From 3-10 minutes were spent in counseling on smoking cessation. [id number] ROLANDO Holloway, [facility], OFFICE [address] [place] [address] 10/24/2017 07:13:17 10/24/2017 07:55:23 Partial thickness rotator cuff tear 031046529 M75.102 significan t pain and limitation in L shoulder 12 days after injury in a fall. Suspect RC tear requiring surgery. Pt in [facility] until late this month. Will order ortho referral for early November. Meanwhile, continue meloxicam. Insomnia 927482954 G47.0 0 OK to restart trazodone 100mg at bedtime. Chronic al coholism in remission 589063920 F10.21 Pt failed Vivitrol, now in [facility], currently sober. He is not interested in returning to [facility]. I informed him that suboxone is only for opiate addiction, which he has never had. He will be discharged from [facility] at end of the month. I asked him to follow up with me in a month or so. Willing to try Campral for cravings, ordered. Nicotine dependence 5629 4008 F17.200 on patch while at [facility], chews tobacco. Thinks he will want patch when he's d/c'd. [id number] Gen Aldana PA-C , [facility], OFFICE [address] [place] [address] 12/25/2017 12:28:47 12/25/2017 13:18:30 Partial thickness rotator cuff tear 244075946 M75.102 Injury 10/2017. I suspected RC tear requiring surgery, referred to ortho--he is finally having consult appt tomorrow. Chronic al coholism in remission 137589918 F10.21 Pt failed Vivitrol, now reports sober for last 2 months or so. He is not interested in returning to [facility]. 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 Homelessne ss makes his sobriety more precarious . Ex-smoker 9736361 Z87.89 1 quit 10/2017, needs more patches--w ill refill. Deep venou s thrombosis 733539635 I82.409 x2, first provoked in 2008, but multivesse l and unprovoked in 08/2017. Refilling Eliquis. Chronic neck pain 127143 0091 107 M54.2 discussed- -I recommende d stopping gabapentin . We could restart if any significan t change in pain level. Meanwhile, I reminded him that he has refills on meloxicam and that he should not take along with ibuprofen. Health Concerns Section Related Observation LastModified by Organization Detai ls LastModified Time None Recorded Concern Status LastModified by Organization Details LastModified Time None Recorded Advance Directives Directive Y: Payers Encounter Date Sequence Insurance Name Policy Number Policy Sosa Covered Member ID Sosa Member ID Guarantor Name 03/07/2017 1 [facility] [employer] - TOGETHER (MEDICAID HMO) Aneudy Andrade [id number] 1 Aneudy Andrade 04/03/2017 1 [facility] [employer] - TOGETHER (MEDICAID HMO) nAeudy Andrade [id number] 1 Aneudy Andrade 04/07/2017 1 [facility] [employer] - TOGETHER (MEDICAID HMO) Aneudy Andrade [id number] 1 Aneudy Andrade 10/24/2017 1 [facility] [employer] - TOGETHER (MEDICAID HMO) Aneudy Andrade [id number] 1 Aneudy Andrade 12/25/2017 1 [facility] [employer] - TOGETHER (MEDICAID HMO) Aneudy Andrade [id number] 1 Aneudy Andrade Notes Date Note Type Note Provider Name and Address Organization Details Recorded Time 04/03/2017 text/html Vivitrol injection Nettie Samaniego LPN [facility] 04/04/2017 10:17:06 04/07/2017 text/html Physical Exam/MaleReported bypatient.Nilson leon is here for a Wellness Visit. He describes his health status as good. Patient's health is better than last year.Risk Assessment and Lifestyle Change Counseling 50-64Reported bypatient.Coronary Artery Disease Risk Assessment:No Family history of coronary artery disease; No personal history of diabetes; No history of peripheral vascular disease, AAA, or carotid disease; No personal history of coronary artery disease Breast Cancer Risk Assessment:No family history of breast cancer; No history of breast cancer or dcis Colon Cancer Risk Assessment:Family history of colon polyps or colon cancer(Father: ca);History of adenomatous colon polyp Lung Cancer Risk Assessment:Never smoked; No asbestos exposure Fracture Risk Assessment:No unexplained fracture Cognitive/Behaviora l Risk Assessment:Personal history of mental illnes; No family history of mental illness Safety Risk Assessment:No evidence of abuse/neglect Diet:Counseled about appropriate portion size; Counseled about decreasing carbohydrates; Discussed the value of a Mediterranean diet , and eating more fruits and vegetables Exercise counseling:Discusse d the importance of daily physical activity [place] He wants to know if I can add on a Lyme test to the recent blood draw. He has seen several ticks on him in the last couple months and is always in the jones. Reports that the last one was a month ago and it left a red ring about 6 in diameter on his abdomen. he doesn't think there was central clearing, and it eventually went away. he assumed it was because of the tick's saliva. he has been feeling well overall, had a bit of a cold or allergies a couple of weeks ago but denies febrile illness. EtOH: sober for last couple of months on vivitrol administered here, needs refill on the med. Chewing tobacco: using 14mg patch, has still been chewing off and on. Psych: on citalopram 20mg. Spine surgery: C-spine, late 2013 Dr Mosquera. Was told to keep taking gabapentin for some time. HL: no longer on statin, recent LDL = 141. Gen Aldana PA-C [address] [place] [address], [phone], [facility] 04/07/2017 13:55:18 10/24/2017 text/html here to discuss L shoulder x-ray done at [facility]. He says this hurt for about 6 mo, but then he fell when intoxicated and hit the shoulder on the curb. This was 10/13. Pain is persisting. EtOH: currently sober. He is here from [facility] and will go back there. He is no longer on vivitrol--last shot here was over 6 mo ago and he has been lost to followup since, except for the occasional ER note, mostly suggesting intoxication. insomnia: wants trazodone again. Gen Aldana PA-C [address] [place], [address], [facility] 10/24/2017 08:03:28 12/25/2017 text/html Wants a letter f or housing to help him get an apartment. he has been living outside for 1.5 years, except he got himself admitted to [facility] when it was coldest. He thinks he needs to tell them he's disabled, but he really is capable of working. The closest thing to disability is his ongoing struggles with EtOH. L shoulder: says he will be seeing Paul tomorrow about this for the first time. He had seen me 10/24 and I referred. He was in [facility] at the time so could not go for consult or surgery. He wants Neck pain: on gabapentin 600mg tid, first started taking some years ago. Wonders why he's still taking it. He has been taking ibuprofen sometimes. Has renewals on meloxicam but has not filled. DVTx2: 2009 after hip surgery, then unprovoked in 08/2017. was put on xarelto 15mg bid for 3 weeks then was supposed to change to 20mg qd, but he thought he was only supposed to take it for 3 weeks so he stopped. He was restarted during more recent admit. EtOH: currently sober, he thinks for the last 2 months or so. he failed Vivitrol. Feels campral has been helping with cravings, feels he's fairly stable in not drinking. Gen Aldana PA-C [address] [place], [address], [facility] 12/25/2017 13:22:57
--- OUTSIDE RECORDS SUMMARY | 2025-01-14 03:56 | XMS_ITS | Encounter Summary ---
Author Organization [email or web address] Address [address] [facility] 7 [place] [address] Care Team Providers Care Asbestos Siding Mechanic Name Role Phone Bety Rich COLIN Unavailable Unavailable Ozjay Jeanne Unavailable Nicolette Donnelly Unavailable [phone] Winston Philip MD Primary Care Provider [phone] Gloria Negrete Unavailable Encounter Details Date Type Department Care Team (Late st Contact Info) Description 04/29/2024 Telephone [facility] [address] [phone] Winston Philip MD [address] [place] [id number] Social History Tobacco Use Types Packs/Day Years [...] encounter Miscellaneous Notes * Telephone Encounter - Esteban Moore - 04/29/2024 8:13 AM EDT Patient went to a agricultural extension specialist, they told him he should get a CT scan of his chest before his appointment with them on 06/04. He's asking we write the order for one so he can have one done. documented in this encounter Plan of Treatment Upcoming Encounters Date Type Department Care Team (Late st Contact Info) Description 01/29/2025 12:40 PM EDT Office Visit [facility] [address] [place] [phone] Winston Philip MD [address] [place] [phone] documented as of this encounter Visit Diagnoses Not on filedocumented in this encounter Care Teams Asbestos Siding Mechanic Relationship Specialty Start Date End Date Winston Philip MD [address] [place] [phone] PCP - General Internal Medicine 10/17/23 Bety Rich FNP Family Medicine 09/09/22 Jeanne Dickinson [address] [place] [phone] 07/31/23 Nicolette Donnlely [address] [place] [address] 08/07/23 07/16/24 Gloria Negrete [address] [place] [address] JOBY NEAL [address] Community Health Worker 02/16/2405/28 documented as of this encounter
--- OUTSIDE RECORDS SUMMARY | 2025-01-14 03:56 | XMS_ITS | Encounter Summary ---
Author Organization [employer] Address [address] [place] [address] 7[address] [place] [address] Care Team Providers Care Reeling Operator Name Role Phone Bety Rich Unavailable Unavailable Jeanne Dickinson Unavailable PcpSilviano Unasszaida Primary Care Provider [place], [place] Unavailable [phone] Winston Philip MD Primary Care Provider [phone] Gloria Negrete Unavailable Reason for Visit * Reason Comments Med Refill Encounter Details Date Type Department Care Team (Late st Contact Info) Description 10/09/[address] [phone] Bety Rich FNP Onychomycosis Social History Tobacco Use Types Packs/Day Years Used Date Smoking Tobacco: Former Cigarettes Smokeless Tobacco: Never Sex and Gender Information Value Date Recorded Sex Assigned at Male 03/17/2023 8:40 AM EDT Legal Sex Male 6:23 PM EDT Gender Identity Male 09/09/2022 6:23 PM EDT Sexual Orientation Bisexual 09/09/2022 6: 23 PM EDT documented as of this encounter Miscellaneous Notes * Telephone Encounter - Dewayne Quintero - 10/09/2023 10:54 AM EST PCP: Silviano Figueroa PCP Last in-person office visit: 03/17/2023 COLIN Tay Lab Results Component Value Date HGBA1C 5.8 (H) 09/30/2022 No future appointments. Comments: documented in this encounter Plan of Treatment Upcoming Encounters Date Type Department Care Team (Late st Contact Info) Description 01/29/2025 12:40 PM EDT Office Visit [address] [phone] Winston Philip MD [address] [place] [phone] documented as of this encounter Visit Diagnoses Diagnosis Onychomycosis Dermatophytosis of nail documented in this encounter Care Teams Reeling Operator Relationship Specialty Start Date End Date PcpSilviano Unassigned PCP - General Family Medicine 08/01/23 10/16/23 Winstno Philip MD [address] [place] [phone] PCP - General Internal Medicine 10/17/23 Bety Rich FNP Family Medicine 09/09/22 Jeanne Dickinson [address] [place] [address] 07/31/23 Nicolette Donnelly [address] [place] [address] 08/07/23 07/16/24 Gloria Negrete [address] [place] [phone] Community Health Worker 02/16/2405/28 documented as of this encounter
--- OUTSIDE RECORDS SUMMARY | 2025-01-14 03:56 | XMS_ITS | Encounter Summary ---
Author Organization [employer] Address [address] [place] [address] 7t [place] [address] Care Team Providers Care Architectural Engineer Name Role Phone Bety Rich COLIN Unavailable Unavailable OzAries thompsonna Unavailable Nicolette Donnelly Unavailable [phone] Winston Philip MD Primary Care Provider [phone] Gloria Negrete Unavailable Encounter Details Date Type Department Care Team (Late st Contact Info) Description 04/03/[address] [phone] Winston Philip MD [address] [place] [phone] Social History Tobacco Use Types Packs/Day Years [...] encounter Miscellaneous Notes * Telephone Encounter - Ana Lilia Rosenthal - 04/03/2024 3:51 PM EDT Looking for the pt last visit. documented in this encounter Plan of Treatment Upcoming Encounters Date Type Department Care Team (Late st Contact Info) Description 01/29/2025 12:40 PM EDT Office Visit [facility] [address] [place] [phone] Winston Philip MD [address] [place] [phone] documented as of this encounter Visit Diagnoses Not on filedocumented in this encounter Care Teams Architectural Engineer Relationship Specialty Start Date End Date Winston Philip MD [address] [place] [phone] PCP - General Internal Medicine 10/17/23 Bety Rich FNP Family Medicine 09/09/22 Jeanne Dickinson [address] [place] [address] 07/31/23 Nicolette Donnelly [address] [place] [phone] 08/07/23 07/16/24 Gloria Negrete [address] [place] [phone] Community Health Worker 02/16/2405/28 documented as of this encounter
[2025-01-14 04:00] LABS: Influenza A PCR POSITIVE (Negative); Influenza B PCR NEGATIVE (Negative); Resp Syncy Virus RNA Qual PCR NEGATIVE (Negative); SARS COV2 PCR INHOUSE NEGATIVE (Negative)
[2025-01-14] MEDS: Nicotine Polacrilex 2 MG GUM BUCCAL (05:38)
[2025-01-14] MEDS: Acetaminophen 325 MG TABLET 650 MG PO (05:42)
--- NOTE | 2025-01-14 06:06 | ED.ALCOHOL ---
HPI - Alcohol General Chief Complaint: ETOH/Substance Use Stated Complaint: BINGE DRINKING VODKA FOR 3 DAYS Time Seen by Provider: 01/14/25 05:58 Source: patient and EMS Mode of arrival: EMS Limitations: other (Intoxicated) History of Present Illness ED Provider: Dr. Judith Vargas HPI narrative: Patient comes to the emergency room complaining of alcohol intoxication. Patient states that for last 2 days he has been drinking vodka heavily. Patient was supposed to go today to rehab. However, patient states that he could not wait and decided to come to emergency room instead. Patient denies any falls, denies any injuries. It was noted the patient has been coughing. Denies any chest pain or shortness of breath Related Data Home Medications ?Medication ?Instructions ?Recorded ?Confirmed acetaminophen 500 mg tablet 500 mg PO Q6H PRN mild pain 08/23/24 10/01/24 naltrexone 50 mg tablet 50 mg PO QAM 08/23/24 10/01/24 apixaban 5 mg tablet (Eliquis) 5 mg PO BID 10/01/24 10/01/24 hydroxyzine HCl 25 mg tablet 25 - 50 mg PO BID PRN Anxiety 10/01/24 10/01/24 nicotine (polacrilex) 4 mg gum 4 mg PO NEEDED 10/01/24 10/01/24 Previous Rx's ?Medication ?Instructions ?Recorded apixaban 5 mg tablet (Eliquis) 5 mg PO BID #30 tabs 10/02/24 benzonatate 100 mg capsule 100 mg PO TID PRN cough #10 caps 01/14/25 Allergies Allergy/AdvReac Type Severity Reaction Status Date / Time pollen extracts [POLLEN] Allergy Unknown UNKNOWN Verified 01/14/25 02:43 Review of Systems Review of Systems: Constitutional : No Weight loss, No Fever, No Chills, No Night Sweats, No Fatigue, No Malaise ENT/Mouth : No Hearing loss, No Ear Pain, No Nasal Congestion, No Sinus Pain, No Hoarseness, No sore throat, No Rhinorrhea, No Swallowing Difficulty Eyes: No Eye Pain, No Swelling, No Redness, No Foreign Body, No Discharge, No Vision Changes Cardiovascular : No Chest Pain, No SOB, No Dyspnea on Exertion, No Orthopnea, No Edema, No Palpitations Respiratory : Complaining of dry Cough, No Sputum, No Wheezing, No Smoke Exposure, No Dyspnea Gastrointestinal : No Nausea, No Vomiting, No Diarrhea, No Constipation, No abdominal Pain, No Hematochezia, No Melena Genitourinary : no irregular bleeding, No Dysuria, No Urinary Frequency, No Hematuria, No Urinary Incontinence, No Urgency, No Flank Pain, No Urinary Flow Changes, No Hesitancy Musculoskeletal : No joint pain, No Myalgias, No Joint Swelling Skin : No Skin Lesions, No rash Neuro : No Weakness, No Numbness, No Paresthesias, No Loss of Consciousness, No Dizziness, No Headache Psych : No Anxiety/Panic, No Depression, No SI/HI/AH/VH, complaining of alcohol intoxication Heme/Lymph: No Bruising, No Bleeding,No Lymphadenopathy Endocrine : No Polyuria, No Polydipsia, No Temperature Intolerance [facility] Past Medical History Medical History DVT (deep venous thrombosis) Alcohol use disorder, moderate, dependence Social History Social History Household Members: None Housing: Apartment Do you presently have visiting nurse or other home services: No Alcohol intake: current Alcohol intake frequency: 3 or more drinks per day Alcohol type: beer and hard liquor Patient Tobacco Use Status: Former Tobacco user Tobacco use type: Cigarette Smoked in Last 30 Days: Yes Use of substances other than those prescribed or required for medical reasons: No Advance Directives: No Advance Directives Information Provided: Yes Do you have a plan to hurt others: No Plan service: No Physical Exam ED Vital Signs: Vital Signs - 24 hr 01/14/25 02:40 01/14/25 07:21 Temperature 97.7 F 98.5 F Pulse Rate 94 74 Respiratory Rate 20 20 Blood Pressure 150/92 H 99/41 L Pulse Oximetry 94 96 Oxygen Delivery Method Room Air Room Air BMI result Body Mass Index 26.6 Const Other: Appearance: Alert. Oriented X3. Belligerent Eyes: Pupils equal, round and reactive to light. ENT: Pharynx normal. Neck: Normal inspection. Neck supple. No lymph nodes noted. No crepitus CVS: Normal heart rate and rhythm. Pulses normal. Normal S1 and S2 Respiratory: No respiratory distress. Breath sounds normal. No Wheezing. No rales Abdomen: Soft and nontender. No rigidity. No distention. Skin: Skin warm and dry. Normal skin color. Normal skin turgor. Extremities: No lower extremity edema. No Lacerations. No Rash Neuro: Oriented X 3. No motor deficit. No sensory deficit. Moving all extremities. No slurred speech. CN 2 through 12 grossly intact Psych: Belligerent, redirectable Medical Decision Making Medical Decision Making [facility] Narrative: Patient's labs and chemistry at baseline ETOH 371 Influenza a positive Chest x-ray no pneumonia 735, patient ambulatory with steady gait, belligerent, demanding breakfast, racing voice, disturbing other patients. Patient coherent, alert and oriented x3, denies SI or HI. Patient ready for discharge Differential Diagnosis Differential Diagnoses: The differential diagnosis associated with the presentation includes (Alcohol intoxication, polysubstance abuse) Lab Data [facility] Lab Attestation statement: I reviewed the patient's lab results. 01/14/25 03:17 01/14/25 03:17 Labs: Lab Results 01/14/25 Range/Units 03:17 WBC 5.5 (4.8-10.8) X10*3/uL RBC 4.35 L (4.60-5.80) X10*6/uL Hgb 14.0 (14.0-18.0) g/dl Hct 39.1 L (42.0-52.0) % MCV 89.9 (80.0-98.0) fL MCH 32.2 (27.0-33.0) pg MCHC 35.8 (31.0-36.0) g/dl RDW 13.8 (11.0-16.0) % Plt Count 285 (160-400) X10*3/uL MPV 7.6 L (9.4-12.4) fL Immature Gran % (Auto) 1.3 H (0.0-0.4) % Neut % (Auto) 57.7 (45-73) % Lymph % (Auto) 26.2 (20-40) % [place] % (Auto) 14.0 H (2-11) % Eos % (Auto) 0.4 (0-4) % Baso % (Auto) 0.4 (0-2) % Lymph # (Auto) 1.4 (1.2-4.9) X10*3/uL [place] # (Auto) 0.8 (0.1-1.2) X10*3/uL Eos # (Auto) 0.0 (0.0-0.4) X10*3/uL Baso # (Auto) 0.0 (0.0-0.2) X10*3/uL Abs Immat Gran (auto) 0.07 H (0.00-0.03) X10*3/uL Absolute Neuts (auto) 3.2 (2.0-8.3) x10*3/uL Absolute Nucleated RBC 0.030 H (0.0-0.012) X10*3/uL Nucleated RBC % (auto) 0.5 H (0.0-0.2) /100WBC Sodium 144 (135-145) mmol/L Potassium 3.6 (3.3-5.1) mmol/L Chloride 107 (96-108) mmol/L Carbon Dioxide 19 L (22-29) mmol/L Anion Gap 22 H (12-20) BUN 19 H (9-16) mg/dL Creatinine 0.79 (0.5-1.4) mg/dL Estim Creat Clear Calc 95.7 Estimated GFR > 60 Random Glucose 124 H (60-115) mg/dL Calcium 8.7 (8.4-10.2) mg/dL Total Bilirubin 0.4 (0.0-1.0) mg/dL AST 31 (5-37) U/L ALT 16 (0-40) U/L Alkaline Phosphatase 53 (39-117) U/L Total Protein 6.8 (6.5-8.0) g/dL Albumin 4.1 (3.5-5.0) g/dL Ethyl Alcohol 371 H* mg/dL Influenza Type A (PCR) POSITIVE A (Negative) Influenza Type B (PCR) NEGATIVE (Negative) RSV RNA Qual (PCR) NEGATIVE (Negative) SARS-CoV-2 RNA (RT-PCR) NEGATIVE (Negative) Independent Interpretation I performed an independent interpretation of an: Plain X-Ray Radiology Impression Discussion of test interpretation with radiology: I have reviewed the radiologist's reading. Radiologist Impression: No consolidation or effusion. Prominent cardiac silhouette. No acute fracture. IMPRESSION: 1. No acute findings Medications Administered Generic Name Dose Route Start Last Admin Trade Name Freq PRN Reason Stop Dose Admin Nicotine Polacrilex 2 mg 01/14/25 05:26 01/14/25 05:38 Nicotine Polacrilex 2 Mg Gum BUCCAL 2 mg Q2H PRN Administration Nicotine Cravings Discontinued Medications Generic Name Dose Route Start Last Admin Trade Name Silvina PRN Reason Stop Dose Admin Acetaminophen 650 mg 01/14/25 05:39 01/14/25 05:42 Acetaminophen 325 Mg Tablet PO 01/14/25 05:40 650 mg ONCE ONE Administration Critical Care Time Critical Care Time Critical Care Time: Yes Total Critical Care Time: 35 Attestation: I have personally provided critical care time. Time includes review of lab data, radiology results, discussion with consultants, and monitoring for potential decompensation. Intervention performed as documented. Discharge Plan Discharge Clinical Impression: Alcoholic intoxication, Influenza A Patient Disposition: Home, Self-Care Instructions: Influenza (ED), Alcohol Intoxication (ED) Additional Instructions: Please follow-up with your primary care physician tomorrow. If you have any worsening or new symptoms, please return to the emergency room or call 911Alcohol use disorder You were seen in the Emergency Department today for treatment of alcohol use disorder.? You may have been given medications to help with your withdrawal symptoms.? Please do not drink alcohol with them. This is very dangerous and can cause respiratory depression or other adverse reactions depending on the medication. If you would like to cut down or stop your alcohol use please consider calling our outpatient Addiction Treatment office:? [facility] (M-F 9a-5p) [address] [place] [address] ? You have also been given a list of treatment providers in the area that can assist as well.? If you experience seizures, vomiting blood, black stools, falls, severe headache, chest pain, fevers, trouble breathing, hallucinations or any other concerns you need to call 911 or seek immediate care. Please stay hydrated. Prescriptions: New benzonatate 100 mg capsule 100 mg PO TID PRN (Reason: cough) Qty: 10 0RF No Action acetaminophen 500 mg tablet 500 mg PO Q6H PRN (Reason: mild pain) naltrexone 50 mg tablet 50 mg PO QAM nicotine (polacrilex) 4 mg gum 4 mg PO NEEDED hydroxyzine HCl 25 mg tablet 25 - 50 mg PO BID PRN (Reason: Anxiety) Eliquis 5 mg tablet 5 mg PO BID Eliquis 5 mg tablet 5 mg PO BID Qty: 30 0RF Print Language: Yi
[2025-01-14 07:21] VITALS: BP 99/41; PULSE 74; RESP 20; TEMP 36.9; O2SAT 96
[2025-01-14 07:35] VITALS: BP 100/60; PULSE 74; RESP 20; TEMP 36.6; O2SAT 96
== END 2025-01-14 08:04 | disposition home or self-care (01) ==
PROVIDERS: Emergency Provider Emergency Medicine
DX: F10.129 Alcohol abuse with intoxication, unspecified (principal); R94.31 Abnormal electrocardiogram [ECG] [EKG]; Y90.8 Blood alcohol level of 240 mg/100 ml or more; J10.1 Influenza due to other identified influenza virus with other respiratory manifestations; Z03.818 Encounter for observation for suspected exposure to other biological agents ruled out; Z51.81 Encounter for therapeutic drug level monitoring; Z79.899 Other long term (current) drug therapy
CPT/HCPCS: 0241U; 71045; 80053; 80307; 85025; 93005; 99284; 99285

== ENCOUNTER → 2025-01-14 02:45 | Outpatient (BNV) | payer MEDICAID, SELFPAY | PROVIDERS: Visit Provider Radiology Diagnostic Radiology | DX: R05.9 Cough, unspecified (principal) | CPT/HCPCS: 71045 ==

== ENCOUNTER → 2025-01-14 03:11 | Outpatient (BNV) | payer MEDICAID, SELFPAY | PROVIDERS: Emergency Provider Emergency Medicine; Visit Provider Internal Medicine Cardiovascular Disease | DX: I45.81 Long QT syndrome (principal) | CPT/HCPCS: 93010 ==

== ENCOUNTER 2025-01-23 18:10 | Emergency (ER) | payer MEDICAID, SELFPAY ==
[2025-01-23 18:16] VITALS: BP 134/88; BP 162/82; PULSE 106; PULSE 74; RESP 16; TEMP 36.6; O2SAT 91; O2SAT 95; BMI 25.8
--- NOTE | 2025-01-23 18:55 | PC.NURSE ---
assumed care of patient, patient in hallway in personal clothes
--- OUTSIDE RECORDS SUMMARY | 2025-01-23 19:34 | XMS_ITS | Data Portability ---
Author Organization [facility], , [facility] Address [address] [place] [address] Care Team Providers Care Paper Machine Backtender Name Role Phone FRANKY ALFARO Primary Care [...] hepatitis C virus Ab, serum 2016 017 [facility], [address] [place] [address], [address], 7 15:20:13 lyme disease igg+igm Ab, serum 2016 017 [facility], [address] [place] [address], [address], 7 15:54:51 glucose, QN [mass/vol ume], serum or plasma 2016 017 [facility], [address] [place] [address], [address], 7 15:19:56 drug of abuse panel, urine 2016 017 [facility], [address] [place] [address], [address], 7 16:31:57 drug of abuse panel, urine 2016 017 [facility], [address] [facility], [place], [address], 7 16:46:16 Referral orthopedi c referral - L shoulder injured in a fall 10/13, suspect RC tear requiring surgery, please eval/xray s done 7 [facility]//Feb ruary 10:15 am Beverly, arrive 10:00 am 2016 017 LALO Paul MD, [address] [place], [address], 8 05:00:44 Procedures colonosco py procedure (PROC) - at [facility] please. Last in [address] Felipe who recommend ed repeat in 1 year. Call pt at cell. Monday is best day to contact him. 2016 017 [facility], [address], [place], [address], 7 07:44:48 Surgeries None recorded. Imaging None recorded. Medication Orders Nicoderm CQ 7 mg/24 hr daily transderm al patch 2017 018 [facility], [address], [place], [address], 8 13:17:37 Nicoderm CQ 14 mg/24 hr daily transderm al patch 2017 018 [facility], [address], [place], [address], 8 13:17:37 Eliquis 5 mg tablet 2017 018 INTERFACE [facility], [address], [place], [address], 8 13:17:39 acamprosa te 333 mg tablet,de layed release 2016 017 [id number], [address], [place], [id number], 7 08:00:41 trazodone 100 mg tablet 2016 017 [facility], [address], [place], [id number], 7 08:00:41 nicotine 14 mg/24 hr daily transderm al patch 2016 017 [facility]65579, [address], [place], [id number], 7 07:24:56 Nicorette 4 mg gum 2016 017 [facility]08119, [address], [place], [id number], 7 13:52:44 Vivitrol 380 mg intramusc ular suspensio n,extende d release 2016 017 [facility]32196, [address], [place], [id number], 7 07:28:38 Vivitrol 380 mg intramusc ular suspensio n,extende d release 2016 017 [facility]58249, [address], [place], [id number], 7 07:28:38 Vivitrol 380 mg intramusc ular suspensio n,extende d release 2016 017 [facility] #62648, [address], [place], [id number], 7 07:28:38 Patient TargetsNo targets recorded. Patient Instructions Encounter Date Encounter Id Patient Instructions Last Modified By Organization Details Last Modified Time 04/07/2017 [id number] Well Visit 50 to 65: Care Instructions rcarriere Not available 04/07/2017 13:40:04 Reason for Referral Orthopedic Referral for Part ial thickness rotator cuff tear L shoulder injured in a fall 10/13, suspect RC tear requiring surgery, please eval/xrays done 10/17/2017 [facility]//December 10:15 am Beverly, arrive 10:00 am Referring Physician: Gen Aldana, Family Medicine, Encounter Date: 10/24/2017 Results Created Date Observation Date Name Description Value Unit Range Abnormal Flag Note LastModifiedBy Organization Detail LastModifiedTime 04/03/20 17 04/03/2017 drug of abuse panel , urine Amphetamine negati ve Not Available [address], [address], 04/03/2017 13:14:04/03/20 17 04/03/2017 drug of abuse panel , urine Barbiturates negati ve Not Available [address], [address], 04/03/2017 13:14:04/03/20 17 04/03/2017 drug of abuse panel , urine Benzodiazepi rivas negati ve Not Available [address], [address], 04/03/2017 13:14:26 04/03/20 17 04/03/2017 drug of abuse panel , urine Cocaine negati ve Not Available [address], [address], 04/03/2017 13:14:26 04/03/20 17 04/03/2017 drug of abuse panel , urine Ecstasy negati ve Not Available [address], [address], 04/03/2017 13:14:04/03/20 17 04/03/2017 drug of abuse panel , urine Marijuana negati ve Not Available [address], [address], 04/03/2017 13:14:26 04/03/20 17 04/03/2017 drug of abuse panel , urine Methadone negati ve Not Available [address], [address], 04/03/2017 13:14:26 04/03/20 17 04/03/2017 drug of abuse panel , urine Metamphetami ne negati ve Not Available [address], [address], 04/03/2017 13:14:26 04/03/20 17 04/03/2017 drug of abuse panel , urine Opiates negati ve Not Available [address], [address], 04/03/2017 13:14:26 04/03/20 17 04/03/2017 drug of abuse panel , urine [id number] negati ve Not Available [address], [address], 04/03/2017 13:14:26 04/03/20 17 04/03/2017 drug of abuse panel , urine Oxycodone negati ve Not Available [address], [address], 04/03/2017 13:14:26 04/03/20 17 04/03/2017 drug of abuse panel , urine PCP negati ve Not Available [address], [address], 04/03/2017 13:14:26 04/03/20 17 04/03/2017 drug of abuse panel , urine Tricyclic Antidepressa nts negati ve Not Available [address], [address], 04/03/2017 13:14:26 03/07/20 17 03/07/2017 drug of abuse panel , urine Amphetamine negati ve Not Available [address], [address], 03/07/2017 13:16:54 03/07/20 17 03/07/2017 drug of abuse panel , urine Barbiturates negati ve Not Available [address], [address], 03/07/2017 13:16:54 03/07/20 17 03/07/2017 drug of abuse panel , urine Benzodiazepi rivas negati ve Not Available [address], [address], 03/07/2017 13:16:54 03/07/20 17 03/07/2017 drug of abuse panel , urine Cocaine negati ve Not Available [address], [address], 03/07/2017 13:16:54 03/07/20 17 03/07/2017 drug of abuse panel , urine Ecstasy negati ve Not Available [address], [address], 03/07/2017 13:16:54 03/07/20 17 03/07/2017 drug of abuse panel , urine Marijuana negati ve Not Available [address], [address], 03/07/2017 13:16:54 03/07/20 17 03/07/2017 drug of abuse panel , urine Methadone negati ve Not Available [address], [address], 03/07/2017 13:16:54 03/07/20 17 03/07/2017 drug of abuse panel , urine Metamphetami ne negati ve Not Available [address], [address], 03/07/2017 13:16:54 03/07/20 17 03/07/2017 drug of abuse panel , urine Opiates negati ve Not Available [address], [address], 03/07/2017 13:16:54 03/07/20 17 03/07/2017 drug of abuse panel , urine [id number] negati ve Not Available [address], [address], 03/07/2017 13:16:54 03/07/20 17 03/07/2017 drug of abuse panel , urine Oxycodone negati ve Not Available [address], [address], 03/07/2017 13:16:54 03/07/20 17 03/07/2017 drug of abuse panel , urine PCP negati ve Not Available [address], [address], 03/07/2017 13:16:54 03/07/20 17 03/07/2017 drug of abuse panel , urine Tricyclic Antidepressa nts negati ve Not Available [address], [address], 03/07/2017 13:16:54 02/08/20 17 02/07/2017 drug of abuse panel , urine Amphetamine negati ve Not Available [address], [address], 02/07/2017 14:51:39 02/08/20 17 02/07/2017 drug of abuse panel , urine Barbiturates negati ve Not Available [address], [address], 02/07/2017 14:51:39 02/08/20 17 02/07/2017 drug of abuse panel , urine Benzodiazepi rivas negati ve Not Available [address], [address], 02/07/2017 14:51:39 02/08/20 17 02/07/2017 drug of abuse panel , urine Cocaine negati ve Not Available [address], [address], 02/07/2017 14:51:39 02/08/20 17 02/07/2017 drug of abuse panel , urine Ecstasy negati ve Not Available [address], [address], 02/07/2017 14:51:39 02/08/20 17 02/07/2017 drug of abuse panel , urine Marijuana negati ve Not Available [address], [address], 02/07/2017 14:51:39 02/08/20 17 02/07/2017 drug of abuse panel , urine Methadone negati ve Not Available [address], [address], 02/07/2017 14:51:39 02/08/20 17 02/07/2017 drug of abuse panel , urine Metamphetami ne negati ve Not Available [address], [address], 02/07/2017 14:51:39 02/08/20 17 02/07/2017 drug of abuse panel , urine Opiates negati ve Not Available [address], [address], 02/07/2017 14:51:39 02/08/20 17 02/07/2017 drug of abuse panel , urine [id number] negati ve Not Available [address], [address], 02/07/2017 14:51:39 02/08/20 17 02/07/2017 drug of abuse panel , urine Oxycodone negati ve Not Available [address], [address], 02/07/2017 14:51:39 02/08/20 17 02/07/2017 drug of abuse panel , urine PCP negati ve Not Available [address], [address], 02/07/2017 14:51:39 02/08/20 17 02/07/2017 drug of abuse panel , urine Tricyclic Antidepressa nts negati ve Not Available [address], [address], 02/07/2017 14:51:39 04/03/20 17 04/04/2017 lipid panel , serum cholesterol 223 mg/dL <200 mg/dl Matthias able 200-2 39 mg/dl Borde rline High >240 mg/dl High Not Available [address], [address], 04/04/2017 08:19:30 04/03/2004/04/2017 lipid panel , serum triglyceride s 139 mg/dL <150 mg/dL Belle l 150-1 99 mg/dL Borde rline High 200-4 99 mg/dL High >500 mg/dL Very High Not Available [address], [address], 04/04/2017 08:19:30 04/03/2004/04/2017 lipid panel , serum direct HDL 54 mg/dL Not Available [address], [address], 04/04/2017 08:19:30 04/03/2004/04/2017 LDL, calcu milagrosd , [...] r is not neces francisca. Not Available [address], [address], 04/04/2017 08:19:30 04/03/2004/08/2017 hepat itis C virus Ab, serum hepatitis C antibody NON-RE ACTIVE non-re active normal Not Available [facility] [address], [address], 04/08/2017 07:40:58 04/03/20 17 04/08/2017 hepat itis C virus Ab, serum signal to cut-off 0.01 <1.00 normal Not Available [facility] [address], [place], [address], 04/08/2017 07:40:58 04/03/20 17 04/11/2017 gluco se, QN [mass /volu me], serum or plasm a glucose 100 mg/dL 70-100 Not Available [facility] [address] [facility], [place], [address], 04/11/2017 10:02:59 07/08/20 20 07/08/2020 CBC w/ auto diff WBC 10.40 K/uL 4.00-1 1.00 Note Refer ence Range updat es to all CBC and Diffe liset al resul ts. Not Available [facility] [address] [place] [address], [address], 07/08/2020 16:25:56 07/08/20 20 07/08/2020 CBC w/ auto diff RBC 4.95 M/uL 3.90-5 .69 Not Available [facility] ([facility]) [address] [place] [address], [address], 07/08/2020 16:25:56 07/08/20 20 07/08/2020 CBC w/ auto diff HGB 16.1 g/dL 12.4-1 7.3 Note updat ed Refer ence Range s for all CBC and Diffe liset al resul ts. Not Available [facility] ([facility]) [address] [place] [address], [address], 07/08/2020 16:25:56 07/08/20 20 07/08/2020 CBC w/ auto diff HCT 45.8 % 37.0-5 1.0 Not Available [facility] ([facility]) [address] [place] [address], [address], 07/08/2020 16:25:56 07/08/20 20 07/08/2020 CBC w/ auto diff plt 305 K/uL 140-43 0 Not Available [facility] ([facility]) [address] [place], [address], 07/08/2020 16:25:56 07/08/20 20 07/08/2020 CBC w/ auto diff MCV 92.5 fL 78.0-9 7.0 Not Available [facility] ([facility]) [address] [place], [address], 07/08/2020 16:25:56 07/08/20 20 07/08/2020 CBC w/ auto diff MCH 32.5 pg 25.0-3 3.0 Not Available [facility] ([facility]) [address] [place], [address], 07/08/2020 16:25:56 07/08/20 20 07/08/2020 CBC w/ auto diff MCHC 35.2 g/dL 32.0-3 6.0 Not Available [facility] ([facility]) [address] [place], [address], 07/08/2020 16:25:56 07/08/20 20 07/08/2020 CBC w/ auto diff RDW 13.2 % 11.0-1 5.0 Not Available [facility] ([facility]) [address] [place], [address], 07/08/2020 16:25:56 07/08/20 20 07/08/2020 CBC w/ auto diff MPV 8.5 fL 8.4-12 .8 Not Available [facility] ([facility]) [address] [place], [address], 07/08/2020 16:25:56 07/08/20 20 07/08/2020 CBC w/ auto diff NRBC 0.00 /100_ WBCs 0 Not Available [facility]) [address] [place], [address], 07/08/2020 16:25:56 07/08/20 20 07/08/2020 CBC w/ auto diff absolute NRBC 0.00 K/uL 0 Not Available [facility]) [address] [place], [address], 07/08/2020 16:25:56 07/08/20 20 07/08/2020 CBC w/ auto diff diff method Auto Not Available [facility]) [address] [place], [address], 07/08/2020 16:25:56 07/08/20 20 07/08/2020 CBC w/ auto diff neuts 87.2 % 43.0-7 5.0 high Not Available [facility] ([facility]) [address] [place], [address], 07/08/2020 16:25:56 07/08/20 20 07/08/2020 CBC w/ auto diff lymphs 5.4 % 18.2-4 7.4 low Not Available [facility] ([facility]) [address] [place], [address], 07/08/2020 16:25:56 07/08/20 20 07/08/2020 CBC w/ auto diff monos 6.7 % 4.00-1 1.00 Not Available [facility] ([facility]) [address] [place], [address], 07/08/2020 16:25:56 07/08/20 20 07/08/2020 CBC w/ auto diff eos 0.1 % 0.0-8. 0 Not Available [facility] ([facility]) [address] [place], [address], 07/08/2020 16:25:56 07/08/20 20 07/08/2020 CBC w/ auto diff basos 0.3 % 0.0-2. 0 Not Available [facility] ([facility]) [address] [place], [address], 07/08/2020 16:25:56 07/08/20 20 07/08/2020 CBC w/ auto diff granulocytes , immature (%) 0.3 % 0.0-0. 9 Not Available [facility]) [address] [place], [address], 07/08/2020 16:25:56 07/08/20 20 07/08/2020 CBC w/ auto diff absolute neuts 9.07 K/uL 1.80-7 .70 high Not Available [facility]) [address] [place], [address], 07/08/2020 16:25:56 07/08/20 20 07/08/2020 CBC w/ auto diff absolute lymphs 0.56 K/uL 1.00-3 .10 low Not Available [facility]) [address] [place], [address], 07/08/2020 16:25:56 07/08/20 20 07/08/2020 CBC w/ auto diff absolute monos 0.70 K/uL 0.20-0 .80 Not Available [facility] ([facility]) [address] [place], [address], 07/08/2020 16:25:56 07/08/20 20 07/08/2020 CBC w/ auto diff absolute eos 0.01 K/uL 0.00-0 .80 Not Available [facility] ([facility]) [address] [place], [address], 07/08/2020 16:25:56 07/08/20 20 07/08/2020 CBC w/ auto diff absolute basos 0.03 K/uL 0.00-0 .09 Not Available [facility] ([facility]) [address] [place], [address], 07/08/2020 16:25:56 07/08/20 20 07/08/2020 CBC w/ auto diff granulocytes , immature 0.03 K/uL 0.00-0 .05 Not Available [facility] [address] [place], [address], 07/08/2020 16:25:56 07/08/20 20 07/08/2020 urina lysis , refle x cultu re color Yellow yellow Not Available [facility] [address] [place], [address], 07/08/2020 16:26:04 07/08/20 20 07/08/2020 urina lysis , refle x cultu re clarity Clear Not Available [facility]) [address] [place], [address], 07/08/2020 16:26:04 07/08/20 20 07/08/2020 urina lysis , refle x cultu re glucose Negati ve negati ve Not Available [facility] [address] [place], [address], 07/08/2020 16:26:04 07/08/20 20 07/08/2020 urina lysis , refle x cultu re bili Negati ve negati ve Not Available [facility] ([facility]) [address] [place], [address], 07/08/2020 16:26:04 07/08/20 20 07/08/2020 urina lysis , refle x cultu re ketones 1+ negati ve abnormal Not Available [facility] [address] [place], [address], 07/08/2020 16:26:04 07/08/20 20 07/08/2020 urina lysis , refle x cultu re specific gravity 1.025 1.005- 1.030 Not Available [facility]) [address] [place], [address], 07/08/2020 16:26:04 07/08/20 20 07/08/2020 urina lysis , refle x cultu re blood Negati ve negati ve Not Available [facility] ([facility]) [address] [place], [address], 07/08/2020 16:26:04 07/08/20 20 07/08/2020 urina lysis , refle x cultu re pH 6.0 5.0-8. 0 Not Available [facility] ([facility]) [address] [place], [address], 07/08/2020 16:26:04 07/08/20 20 07/08/2020 urina lysis , refle x cultu re protein Trace negati ve abnormal Not Available [facility] ([facility]) [address] [place], [address], 07/08/2020 16:26:04 07/08/20 20 07/08/2020 urina lysis , refle x cultu re nitrite Negati ve negati ve Not Available [facility] ([facility]) [address] [place], [address], 07/08/2020 16:26:04 07/08/20 20 07/08/2020 urina lysis , refle x cultu re leukocyte esterase, ur Negati ve negati ve Not Available [facility] ([facility]) [address] [place], [address], 07/08/2020 16:26:04 07/08/20 20 07/08/2020 BMP, blood sodium 138 mmol/ L 133-14 6 Not Available [facility]) [address] [place], [address], 07/08/2020 16:57:39 07/08/20 20 07/08/2020 BMP, blood chloride 100 mmol/ L 96-108 Not Available [facility]) [address] [place], [address], 07/08/2020 16:57:39 07/08/20 20 07/08/2020 BMP, blood potassium 4.8 mmol/ L 3.3-5. 1 Not Available [facility]) [address] [place], [address], 07/08/2020 16:57:39 07/08/20 20 07/08/2020 BMP, blood CO2 26 mmol/ L 21-35 Not Available [facility]) [address] [place], [address], 07/08/2020 16:57:39 07/08/20 20 07/08/2020 BMP, blood BUN 18 mg/dL 6-19 Not Available [facility]) [address] [place], [address], 07/08/2020 16:57:39 07/08/20 20 07/08/2020 BMP, blood creatinine 0.90 mg/dL 0.5-1. 5 Not Available [facility] ([facility]) [address] [place], [address], 07/08/2020 16:57:39 07/08/20 20 07/08/2020 BMP, blood glucose 135 mg/dL 70-99 high Not Available [facility]) [address] [place], [address], 07/08/2020 16:57:39 07/08/20 20 07/08/2020 BMP, blood calcium 9.9 mg/dL 8.4-10 .3 Not Available [facility]) [address] [place], [address], 07/08/2020 16:57:39 07/08/20 20 07/08/2020 BMP, blood eGFR 94 mL/mi n/1.7 3m2 >59 Estim ated glome rular filtr ation rate calcu lated using the CKD-E PI equat ion. Not Available [facility] ([facility]) [address] [place], [address], 07/08/2020 16:57:39 07/08/20 20 07/08/2020 BMP, blood anion gap 17 mmol/ L 10-20 Not Available [facility] ([facility]) [address] [place], [address], 07/08/2020 16:57:39 07/08/20 20 07/08/2020 lipas e, serum or plasm a lipase 20 U/L 16-63 Not Available [facility]) [address] [place], [address], 07/08/2020 16:57:41 07/08/20 20 07/08/2020 lfts (hepa tic panel ) alkaline phosphatase 50 U/L 39-117 Not Available [facility]) [address] [place], [address], 07/08/2020 16:57:42 07/08/20 20 07/08/2020 lfts (hepa tic panel ) total bilirubin 0.5 mg/dL 0.0-1. 2 Not Available [facility] ([facility]) [address] [place], [address], 07/08/2020 16:57:42 07/08/20 20 07/08/2020 lfts (hepa tic panel ) direct bilirubin <0.2 mg/dL 0-0.3 Not Available [facility] ([facility]) [address] [place], [address], 07/08/2020 16:57:42 07/08/20 20 07/08/2020 lfts (hepa tic panel ) bilirubin (indirect) NOT CALCUL ATED mg/dL 0-1.5 Not Available [facility] ([facility]) [address] [place], [address], 07/08/2020 16:57:42 07/08/20 20 07/08/2020 lfts (hepa tic panel ) AST 21 U/L 0-37 Not Available [facility] ([facility]) [address] [place], [address], 07/08/2020 16:57:42 07/08/20 20 07/08/2020 lfts (hepa tic panel ) ALT 17 U/L 0-40 Not Available [facility] ([facility]) [address] [place], [address], 07/08/2020 16:57:42 07/08/20 20 07/08/2020 lfts (hepa tic panel ) total protein 7.3 g/dL 6.5-8. 0 Not Available [facility] ([facility]) [address] [place], [address], 07/08/2020 16:57:42 07/08/20 20 07/08/2020 lfts (hepa tic panel ) albumin 5.0 g/dL 3.9-4. 8 high Not Available [facility] ([facility]) [address] [place], [address], 07/08/2020 16:57:42 07/08/20 20 07/08/2020 lfts (hepa tic panel ) globulin 2.3 g/dL 1-4.8 Not Available [facility] ([facility]) [address] [place], [address], 07/08/2020 16:57:42 07/08/20 20 07/08/2020 lfts (hepa tic panel ) A/G ratio 2.17 ratio 1.00-4 .80 Not Available [facility] ([facility]) [address] [place], [address], 07/08/2020 16:57:42 07/08/20 20 07/08/2020 SARS CoV 2 RNA (COVI D-19) , QL, cereal chemist-P CR, respi rator y speci men covid-19 source NASAL SWAB Not Available [facility]) [address] [place], [address], 07/08/2020 21:21:18 07/08/20 20 07/08/2020 SARS CoV 2 RNA (COVI D-19) , QL, cereal chemist-P CR, respi rator y speci men covid testing status In-mimi se testin g being perfor med Not Available [facility] ([facility]) [address] [place], [address], 07/08/2020 21:21:18 07/08/20 20 07/08/2020 SARS CoV 2 RNA (COVI D-19) , QL, cereal chemist-P CR, respi rator y speci men specimen source NASAL Not Available [facility] ([facility]) [address] [place], [address], 07/08/2020 21:43:36 07/08/20 20 07/08/2020 SARS CoV 2 RNA (COVI D-19) , QL, cereal chemist-P CR, respi rator y speci men sars-cov-2 [...] rizat ion can be found at the [employer] links : For Healt hcare Provi ders: https ://ww w.fda .gov/ media /4310 23/do wnloa d For Patie nts: https ://ww w.fda .gov. media /1365 24/do wnloa d. Not Available [facility] ([facility]) [address] [place], [address], 07/08/2020 21:43:36 07/09/20 20 07/09/2020 CBC WBC 5.08 K/uL 4.00-1 1.00 Note Refer ence Range updat es to all CBC and Melanye liset al resul ts. Not Available [facility] ([facility]) [address] [place], [address], 07/09/2020 05:54:49 07/09/20 20 07/09/2020 CBC RBC 4.05 M/uL 3.90-5 .69 Not Available [facility] ([facility]) [address] [place], [address], 07/09/2020 05:54:49 07/09/20 20 07/09/2020 CBC HGB 13.2 g/dL 12.4-1 7.3 Note updat ed Refer ence Range s for all CBC and Melanye liset al resul ts. Not Available [facility] ([facility]) [address] [place], [address], 07/09/2020 05:54:49 07/09/2007/09/2020 CBC HCT 37.7 % 37.0-5 1.0 Not Available [facility] ([facility]) [address] [place], [address], 07/09/2020 05:54:49 07/09/2007/09/2020 CBC plt 259 K/uL 140-43 0 Not Available [facility] ([facility]) [address] [place], [address], 07/09/2020 05:54:49 07/09/2007/09/2020 CBC MCV 93.1 fL 78.0-9 7.0 Not Available [facility] ([facility]) [address] [place], [address], 07/09/2020 05:54:49 07/09/2007/09/2020 CBC MCH 32.6 pg 25.0-3 3.0 Not Available [facility] ([facility]) [address] [place], [address], 07/09/2020 05:54:49 07/09/20 20 07/09/2020 CBC MCHC 35.0 g/dL 32.0-3 6.0 Not Available [facility] ([facility]) [address] [place] [address], [address], 07/09/2020 05:54:49 07/09/20 20 07/09/2020 CBC RDW 13.2 % 11.0-1 5.0 Not Available [facility] ([facility]) [address] [place] [address], [address], 07/09/2020 05:54:49 07/09/20 20 07/09/2020 CBC MPV 8.5 fL 8.4-12 .8 Not Available [facility] ([facility]) [address] [place] [address], [address], 07/09/2020 05:54:49 07/09/20 20 07/09/2020 CBC NRBC 0.00 /100_ WBCs 0 Not Available [facility] ([facility]) [address] [place] [address], [address], 07/09/2020 05:54:49 07/09/2007/09/2020 CBC absolute NRBC 0.00 K/uL 0 Not Available [facility] ([facility]) [address] [place] [address], [address], 07/09/2020 05:54:49 07/09/2007/09/2020 BMP, blood sodium 140 mmol/ L 133-14 6 Not Available [facility] [facility] [address] [place] [address], [address], 07/09/2020 06:26:39 07/09/2007/09/2020 BMP, blood chloride 104 mmol/ L 96-108 Not Available [facility] (Outpatient) [address] [place] [address], [address], 07/09/2020 06:26:39 07/09/2007/09/2020 BMP, blood potassium 4.1 mmol/ L 3.3-5. 1 Not Available [facility] (Outpatient) [address] [place], [address], 07/09/2020 06:26:39 07/09/20 20 07/09/2020 BMP, blood CO2 27 mmol/ L 21-35 Not Available [facility] (Outpatient) [address] [place], [address], 07/09/2020 06:26:39 07/09/20 20 07/09/2020 BMP, blood BUN 17 mg/dL 6-19 Not Available [facility] (Outpatient) [address] [place], [address], 07/09/2020 06:26:39 07/09/20 20 07/09/2020 BMP, blood creatinine 0.90 mg/dL 0.5-1. 5 Not Available [facility] (Outpatient) [address] [place], [address], 07/09/2020 06:26:39 07/09/20 20 07/09/2020 BMP, blood glucose 142 mg/dL 70-99 high Not Available [facility] (Outpatient) [address] [place], [address], 07/09/2020 06:26:39 07/09/20 20 07/09/2020 BMP, blood calcium 8.7 mg/dL 8.4-10 .3 Not Available [facility] (Outpatient) [address] [place], [address], 07/09/2020 06:26:39 07/09/20 20 07/09/2020 BMP, blood eGFR 94 mL/mi n/1.7 3m2 >59 Estim ated glome rular filtr ation rate calcu lated using the CKD-E PI equat ion. Not Available [facility] (Outpatient) [address] [place] [address], [address], 07/09/2020 06:26:39 07/09/2007/09/2020 BMP, blood anion gap 13 mmol/ L 10-20 Not Available [facility] (Outpatient) [address] [place], [address], 07/09/2020 06:26:39 07/09/20 20 07/09/2020 magne sium, QN, serum or plasm a magnesium 2.1 mg/dL 1.6-2. 6 Not Available [facility] (Outpatient) [address] [place], [address], 07/09/2020 06:26:40 07/09/20 20 07/09/2020 phosp horus , serum or plasm a phosphorus 4.0 mg/dL 2.7-4. 5 Not Available [facility] (Outpatient) [address] [place], [address], 07/09/2020 06:26:41 07/10/20 20 07/10/2020 CBC w/ auto diff WBC 2.78 K/uL 4.00-1 1.00 low Note Refer ence Range updat es to all CBC and Diffe renti al resul ts. Not Available [facility] (Outpatient) [address] [place] [address], [address], 07/10/2020 06:04:03 07/10/20 20 07/10/2020 CBC w/ auto diff RBC 3.95 M/uL 3.90-5 .69 Not Available [facility] (Outpatient) [address] [place] [address], [address], 07/10/2020 06:04:03 07/10/20 20 07/10/2020 CBC w/ auto diff HGB 12.7 g/dL 12.4-1 7.3 Note updat ed Refer ence Range s for all CBC and Diffe renti al resul ts. Not Available [facility] (Outpatient) [address] [place], [address], 07/10/2020 06:04:03 07/10/20 20 07/10/2020 CBC w/ auto diff HCT 37.1 % 37.0-5 1.0 Not Available [facility] (Outpatient) [address] [place], [address], 07/10/2020 06:04:03 07/10/20 20 07/10/2020 CBC w/ auto diff plt 238 K/uL 140-43 0 Not Available [facility] (Outpatient) [address] [place], [address], 07/10/2020 06:04:03 07/10/20 20 07/10/2020 CBC w/ auto diff MCV 93.9 fL 78.0-9 7.0 Not Available [facility] (Outpatient) [address] [place], [address], 07/10/2020 06:04:03 07/10/20 20 07/10/2020 CBC w/ auto diff MCH 32.2 pg 25.0-3 3.0 Not Available [facility] (Outpatient) [address] [place], [address], 07/10/2020 06:04:03 07/10/20 20 07/10/2020 CBC w/ auto diff MCHC 34.2 g/dL 32.0-3 6.0 Not Available [facility] (Outpatient) [address] [place], [address], 07/10/2020 06:04:03 07/10/20 20 07/10/2020 CBC w/ auto diff RDW 13.1 % 11.0-1 5.0 Not Available [facility] (Outpatient) [address] [place], [address], 07/10/2020 06:04:03 07/10/2007/10/2020 CBC w/ auto diff MPV 8.6 fL 8.4-12 .8 Not Available [facility] (Outpatient) [address] [place], [address], 07/10/2020 06:04:03 07/10/20 20 07/10/2020 CBC w/ auto diff NRBC 0.00 /100_ WBCs 0 Not Available [facility] (Outpatient) [address] [place], [address], 07/10/2020 06:04:03 07/10/20 20 07/10/2020 CBC w/ auto diff absolute NRBC 0.00 K/uL 0 Not Available [facility] (Outpatient) [address] [place], [address], 07/10/2020 06:04:03 07/10/20 20 07/10/2020 CBC w/ auto diff diff method Auto Not Available [facility] (Outpatient) [address] [place], [address], 07/10/2020 06:04:03 07/10/20 20 07/10/2020 CBC w/ auto diff neuts 49.3 % 43.0-7 5.0 Not Available [facility] (Outpatient) [address] [place], [address], 07/10/2020 06:04:03 07/10/20 20 07/10/2020 CBC w/ auto diff lymphs 33.1 % 18.2-4 7.4 Not Available [facility] (Outpatient) [address] [place], [address], 07/10/2020 06:04:03 07/10/20 20 07/10/2020 CBC w/ auto diff monos 11.2 % 4.00-1 1.00 high Not Available [facility] (Outpatient) [address] [place], [address], 07/10/2020 06:04:03 07/10/20 20 07/10/2020 CBC w/ auto diff eos 5.0 % 0.0-8. 0 Not Available [facility] (Outpatient) [address] [place], [address], 07/10/2020 06:04:03 07/10/20 20 07/10/2020 CBC w/ auto diff basos 0.7 % 0.0-2. 0 Not Available [facility] (Outpatient) [address] [place], [address], 07/10/2020 06:04:03 07/10/20 20 07/10/2020 CBC w/ auto diff granulocytes , immature (%) 0.7 % 0.0-0. 9 Not Available [facility] (Outpatient) [address] [place], [address], 07/10/2020 06:04:03 07/10/20 20 07/10/2020 CBC w/ auto diff absolute neuts 1.37 K/uL 1.80-7 .70 low Not Available [facility] (Outpatient) [address] [place], [address], 07/10/2020 06:04:03 07/10/20 20 07/10/2020 CBC w/ auto diff absolute lymphs 0.92 K/uL 1.00-3 .10 low Not Available [facility] (Outpatient) [address] [place], [address], 07/10/2020 06:04:03 07/10/2007/10/2020 CBC w/ auto diff absolute monos 0.31 K/uL 0.20-0 .80 Not Available [facility] (Outpatient) [address] [place], [address], 07/10/2020 06:04:03 07/10/2007/10/2020 CBC w/ auto diff absolute eos 0.14 K/uL 0.00-0 .80 Not Available [facility] (Outpatient) [address] [place], [address], 07/10/2020 06:04:03 07/10/2007/10/2020 CBC w/ auto diff absolute basos 0.02 K/uL 0.00-0 .09 Not Available [facility] (Outpatient) [address] [place], [address], 07/10/2020 06:04:03 07/10/20 20 07/10/2020 CBC w/ auto diff granulocytes , immature 0.02 K/uL 0.00-0 .05 Not Available [facility] (Outpatient) [address] [place], [address], 07/10/2020 06:04:03 07/10/20 20 07/10/2020 BMP, blood sodium 145 mmol/ L 133-14 6 Not Available [facility] (Outpatient) [address] [place], [address], 07/10/2020 06:23:58 07/10/20 20 07/10/2020 BMP, blood chloride 108 mmol/ L 96-108 Not Available [facility] (Outpatient) [address] [place], [address], 07/10/2020 06:23:58 07/10/20 20 07/10/2020 BMP, blood potassium 4.1 mmol/ L 3.3-5. 1 Not Available [facility] (Outpatient) [address] [place], [address], 07/10/2020 06:23:58 07/10/20 20 07/10/2020 BMP, blood CO2 27 mmol/ L 21-35 Not Available [facility] (Outpatient) [address] [place], [address], 07/10/2020 06:23:58 07/10/20 20 07/10/2020 BMP, blood BUN 12 mg/dL 6-19 Not Available [facility] (Outpatient) [address] [place], [address], 07/10/2020 06:23:58 07/10/20 20 07/10/2020 BMP, blood creatinine 0.90 mg/dL 0.5-1. 5 Not Available [facility] (Outpatient) [address] [place], [address], 07/10/2020 06:23:58 07/10/20 20 07/10/2020 BMP, blood glucose 95 mg/dL 70-99 Not Available [facility] (Outpatient) [address] [place], [address], 07/10/2020 06:23:58 07/10/20 20 07/10/2020 BMP, blood calcium 8.8 mg/dL 8.4-10 .3 Not Available [facility] (Outpatient) [address] [place], [address], 07/10/2020 06:23:58 07/10/20 20 07/10/2020 BMP, blood eGFR 94 mL/mi n/1.7 3m2 >59 Estim ated glome rular filtr ation rate calcu lated using the CKD-E PI equat ion. Not Available [facility] (Outpatient) [address] [place], [address], 07/10/2020 06:23:58 07/10/20 20 07/10/2020 BMP, blood anion gap 14 mmol/ L 10-20 Not Available [facility] (Outpatient) [address] [place], [address], 07/10/2020 06:23:58 07/10/20 20 07/10/2020 magne sium, QN, serum or plasm a magnesium 2.0 mg/dL 1.6-2. 6 Not Available [facility] (Outpatient) [address] [place], [address], 07/10/2020 06:24:00 07/10/20 20 07/10/2020 phosp horus , serum or plasm a phosphorus 3.9 mg/dL 2.7-4. 5 Not Available [facility] (Outpatient) [address] [place], [address], 07/10/2020 06:24:01 07/11/20 20 07/11/2020 CBC w/ auto diff WBC 2.86 K/uL 4.00-1 1.00 low Note Refer ence Range updat es to all CBC and Diffe renti al resul ts. Not Available [facility] (Outpatient) [address] [place], [address], 07/11/2020 05:47:47 07/11/20 20 07/11/2020 CBC w/ auto diff RBC 4.04 M/uL 3.90-5 .69 Not Available [facility] (Outpatient) [address] [place], [address], 07/11/2020 05:47:47 07/11/20 20 07/11/2020 CBC w/ auto diff HGB 13.3 g/dL 12.4-1 7.3 Note updat ed Refer ence Range s for all CBC and Diffe renti al resul ts. Not Available [facility] (Outpatient) [address] [place], [address], 07/11/2020 05:47:47 07/11/20 20 07/11/2020 CBC w/ auto diff HCT 37.6 % 37.0-5 1.0 Not Available [facility] (Outpatient) [address] [place], [address], 07/11/2020 05:47:47 07/11/20 20 07/11/2020 CBC w/ auto diff plt 247 K/uL 140-43 0 Not Available [facility] (Outpatient) [address] [place] [address], [address], 07/11/2020 05:47:47 07/11/20 20 07/11/2020 CBC w/ auto diff MCV 93.1 fL 78.0-9 7.0 Not Available [facility] (Outpatient) [address] [place], [address], 07/11/2020 05:47:47 07/11/20 20 07/11/2020 CBC w/ auto diff MCH 32.9 pg 25.0-3 3.0 Not Available [facility] (Outpatient) [address] [place], [address], 07/11/2020 05:47:47 07/11/20 20 07/11/2020 CBC w/ auto diff MCHC 35.4 g/dL 32.0-3 6.0 Not Available [facility] (Outpatient) [address] [place], [address], 07/11/2020 05:47:47 07/11/20 20 07/11/2020 CBC w/ auto diff RDW 12.8 % 11.0-1 5.0 Not Available [facility] (Outpatient) [address] [place], [address], 07/11/2020 05:47:47 07/11/20 20 07/11/2020 CBC w/ auto diff MPV 8.5 fL 8.4-12 .8 Not Available [facility] (Outpatient) [address] [place] [address], [address], 07/11/2020 05:47:47 07/11/20 20 07/11/2020 CBC w/ auto diff NRBC 0.00 /100_ WBCs 0 Not Available [facility] (Outpatient) [address] [place] [address], [address], 07/11/2020 05:47:47 07/11/20 20 07/11/2020 CBC w/ auto diff absolute NRBC 0.00 K/uL 0 Not Available [facility] (Outpatient) [address] [place], [address], 07/11/2020 05:47:47 07/11/20 20 07/11/2020 CBC w/ auto diff diff method Auto Not Available [facility] (Outpatient) [address] [place], [address], 07/11/2020 05:47:47 07/11/20 20 07/11/2020 CBC w/ auto diff neuts 50.1 % 43.0-7 5.0 Not Available [facility] (Outpatient) [address] [place], [address], 07/11/2020 05:47:47 07/11/20 20 07/11/2020 CBC w/ auto diff lymphs 31.8 % 18.2-4 7.4 Not Available [facility] (Outpatient) [address] [place], [address], 07/11/2020 05:47:47 07/11/20 20 07/11/2020 CBC w/ auto diff monos 12.6 % 4.00-1 1.00 high Not Available [facility] (Outpatient) [address] [place], [address], 07/11/2020 05:47:47 07/11/20 20 07/11/2020 CBC w/ auto diff eos 4.2 % 0.0-8. 0 Not Available [facility] (Outpatient) [address] [place] [address], [address], 07/11/2020 05:47:47 07/11/20 20 07/11/2020 CBC w/ auto diff basos 1.0 % 0.0-2. 0 Not Available [facility] (Outpatient) [address] [place] [address], [address], 07/11/2020 05:47:47 07/11/20 20 07/11/2020 CBC w/ auto diff granulocytes , immature (%) 0.3 % 0.0-0. 9 Not Available [facility] (Outpatient) [address] [place] [address], [address], 07/11/2020 05:47:47 07/11/20 20 07/11/2020 CBC w/ auto diff absolute neuts 1.43 K/uL 1.80-7 .70 low Not Available [facility] (Outpatient) [address] [place] [address], [address], 07/11/2020 05:47:47 07/11/20 20 07/11/2020 CBC w/ auto diff absolute lymphs 0.91 K/uL 1.00-3 .10 low Not Available [facility] (Outpatient) [address] [place], [address], 07/11/2020 05:47:47 07/11/20 20 07/11/2020 CBC w/ auto diff absolute monos 0.36 K/uL 0.20-0 .80 Not Available [facility] (Outpatient) [address] [place], [address], 07/11/2020 05:47:47 07/11/20 20 07/11/2020 CBC w/ auto diff absolute eos 0.12 K/uL 0.00-0 .80 Not Available [facility] (Outpatient) [address] [place], [address], 07/11/2020 05:47:47 07/11/20 20 07/11/2020 CBC w/ auto diff absolute basos 0.03 K/uL 0.00-0 .09 Not Available [facility] (Outpatient) [address] [place], [address], 07/11/2020 05:47:47 07/11/20 20 07/11/2020 CBC w/ auto diff granulocytes , immature 0.01 K/uL 0.00-0 .05 Not Available [facility] (Outpatient) [address] [place], [address], 07/11/2020 05:47:47 07/11/20 20 07/11/2020 BMP, blood sodium 144 mmol/ L 133-14 6 Not Available [facility] (Outpatient) [address] [place], [address], 07/11/2020 06:14:38 07/11/2007/11/2020 BMP, blood chloride 106 mmol/ L 96-108 Not Available [facility] (Outpatient) [address] [place], [address], 07/11/2020 06:14:38 07/11/20 20 07/11/2020 BMP, blood potassium 4.0 mmol/ L 3.3-5. 1 Not Available [facility] (Outpatient) [address] [place], [address], 07/11/2020 06:14:38 07/11/20 20 07/11/2020 BMP, blood CO2 28 mmol/ L 21-35 Not Available [facility] (Outpatient) [address] [place], [address], 07/11/2020 06:14:38 07/11/20 20 07/11/2020 BMP, blood BUN 9 mg/dL 6-19 Not Available [facility] (Outpatient) [address] [place], [address], 07/11/2020 06:14:38 07/11/20 20 07/11/2020 BMP, blood creatinine 0.90 mg/dL 0.5-1. 5 Not Available [facility] (Outpatient) [address] [place], [address], 07/11/2020 06:14:38 07/11/20 20 07/11/2020 BMP, blood glucose 96 mg/dL 70-99 Not Available [facility] (Outpatient) [address] [place], [address], 07/11/2020 06:14:38 07/11/20 20 07/11/2020 BMP, blood calcium 8.9 mg/dL 8.4-10 .3 Not Available [facility] (Outpatient) [address] [place], [address], 07/11/2020 06:14:38 07/11/2007/11/2020 BMP, blood eGFR 94 mL/mi n/1.7 3m2 >59 Estim ated glome rular filtr ation rate calcu lated using the CKD-E PI equat ion. Not Available [facility] (Outpatient) [address] [place] [address], [address], 07/11/2020 06:14:38 07/11/20 20 07/11/2020 BMP, blood anion gap 14 mmol/ L 10-20 Not Available [facility] (Outpatient) [address] [place], [address], 07/11/2020 06:14:38 07/11/20 20 07/11/2020 magne sium, QN, serum or plasm a magnesium 2.0 mg/dL 1.6-2. 6 Not Available [facility] (Outpatient) [address] [place], [address], 07/11/2020 06:14:40 07/11/20 20 07/11/2020 phosp horus , serum or plasm a phosphorus 4.1 mg/dL 2.7-4. 5 Not Available [facility] (Outpatient) [address] [place], [address], 07/11/2020 06:14:41 03/21/20 21 03/21/2021 trey zoe respi rator y viral order (pro) test ordered Rapid COVID has been ordere d Not Available [facility] (Outpatient) [address] [place], [address], 03/21/2021 15:41:30 03/21/20 21 03/21/2021 trey zoe respi rator y viral order (pro) specimen source NASAL Not Available [facility] (Outpatient) [address] [place] [address], [address], 03/21/2021 15:41:30 03/21/20 21 03/21/2021 trey zoe [...] Heather hernandez can be found at the [employer] links : For Healt hcare Provi ders: https ://ww w.Jellynote .gov/ media /1365 23/do wnloa d For Patie nts: https ://ww WeGame.Jellynote .gov. media /1365 24/do wnloa d. Not Available [facility] (Outpatient) [address] [place], [address], 03/21/2021 15:41:30 03/21/20 21 03/21/2021 CBC w/ auto diff WBC 3.27 K/uL 4.00-1 1.00 low Not Available [facility] (Outpatient) [address] [place] [address], [address], 03/21/2021 15:44:51 03/21/20 21 03/21/2021 CBC w/ auto diff RBC 4.92 M/uL 3.90-5 .69 Not Available [facility] (Outpatient) [address] [place], [address], 03/21/2021 15:44:51 03/21/20 21 03/21/2021 CBC w/ auto diff HGB 15.9 g/dL 12.4-1 7.3 Not Available [facility] (Outpatient) [address] [place], [address], 03/21/2021 15:44:51 03/21/20 21 03/21/2021 CBC w/ auto diff HCT 47.0 % 37.0-5 1.0 Not Available [facility] (Outpatient) [address] [place] [address], [address], 03/21/2021 15:44:51 03/21/20 21 03/21/2021 CBC w/ auto diff plt 196 K/uL 140-43 0 Not Available [facility] (Outpatient) [address] [place], [address], 03/21/2021 15:44:51 03/21/20 21 03/21/2021 CBC w/ auto diff MCV 95.5 fL 78.0-9 7.0 Not Available [facility] (Outpatient) [address] [place], [address], 03/21/2021 15:44:51 03/21/20 21 03/21/2021 CBC w/ auto diff MCH 32.3 pg 25.0-3 3.0 Not Available [facility] (Outpatient) [address] [place], [address], 03/21/2021 15:44:51 03/21/20 21 03/21/2021 CBC w/ auto diff MCHC 33.8 g/dL 32.0-3 6.0 Not Available [facility] (Outpatient) [address] [place], [address], 03/21/2021 15:44:51 03/21/20 21 03/21/2021 CBC w/ auto diff RDW 14.6 % 11.0-1 5.0 Not Available [facility] (Outpatient) [address] [place] [address], [address], 03/21/2021 15:44:51 03/21/20 21 03/21/2021 CBC w/ auto diff MPV 8.3 fL 8.4-12 .8 low Not Available [facility] (Outpatient) [address] [place], [address], 03/21/2021 15:44:51 03/21/20 21 03/21/2021 CBC w/ auto diff NRBC 0.00 /100_ WBCs 0 Not Available [facility] (Outpatient) [address] [place] [address], [address], 03/21/2021 15:44:51 03/21/20 21 03/21/2021 CBC w/ auto diff absolute NRBC 0.00 K/uL 0 Not Available [facility] (Outpatient) [address] [place], [address], 03/21/2021 15:44:51 03/21/20 21 03/21/2021 CBC w/ auto diff diff method Auto Not Available [facility] (Outpatient) [address] [place], [address], 03/21/2021 15:44:51 03/21/20 21 03/21/2021 CBC w/ auto diff neuts 46.8 % 43.0-7 5.0 Not Available [facility] (Outpatient) [address] [place], [address], 03/21/2021 15:44:51 03/21/20 21 03/21/2021 CBC w/ auto diff lymphs 41.0 % 18.2-4 7.4 Not Available [facility] (Outpatient) [address] [place], [address], 03/21/2021 15:44:51 03/21/20 21 03/21/2021 CBC w/ auto diff monos 9.5 % 4.00-1 1.00 Not Available [facility] (Outpatient) [address] [place], [address], 03/21/2021 15:44:51 03/21/20 21 03/21/2021 CBC w/ auto diff eos 0.6 % 0.0-8. 0 Not Available [facility] (Outpatient) [address] [place], [address], 03/21/2021 15:44:51 03/21/20 21 03/21/2021 CBC w/ auto diff basos 0.9 % 0.0-2. 0 Not Available [facility] (Outpatient) [address] [place], [address], 03/21/2021 15:44:51 03/21/20 21 03/21/2021 CBC w/ auto diff granulocytes , immature (%) 1.2 % 0.0-0. 9 high Not Available [facility] (Outpatient) [address] [place], [address], 03/21/2021 15:44:51 03/21/20 21 03/21/2021 CBC w/ auto diff absolute neuts 1.53 K/uL 1.80-7 .70 low Not Available [facility] (Outpatient) [address] [place], [address], 03/21/2021 15:44:51 03/21/20 21 03/21/2021 CBC w/ auto diff absolute lymphs 1.34 K/uL 1.00-3 .10 Not Available [facility] (Outpatient) [address] [place], [address], 03/21/2021 15:44:51 03/21/20 21 03/21/2021 CBC w/ auto diff absolute monos 0.31 K/uL 0.20-0 .80 Not Available [facility] (Outpatient) [address] [place] [address], [address], 03/21/2021 15:44:51 03/21/20 21 03/21/2021 CBC w/ auto diff absolute eos 0.02 K/uL 0.00-0 .80 Not Available [facility] (Outpatient) [address] [place], [address], 03/21/2021 15:44:51 03/21/20 21 03/21/2021 CBC w/ auto diff absolute basos 0.03 K/uL 0.00-0 .09 Not Available [facility] (Outpatient) [address] [place] [address], [address], 03/21/2021 15:44:51 03/21/20 21 03/21/2021 CBC w/ auto diff granulocytes , immature 0.04 K/uL 0.00-0 .05 Not Available [facility] (Outpatient) [address] [place], [address], 03/21/2021 15:44:51 03/21/20 21 03/21/2021 BMP, blood sodium 146 mmol/ L 133-14 6 Not Available [facility] (Outpatient) [address] [place], [address], 03/21/2021 16:06:28 03/21/20 21 03/21/2021 BMP, blood chloride 107 mmol/ L 96-108 Not Available [facility] (Outpatient) [address] [place], [address], 03/21/2021 16:06:28 03/21/20 21 03/21/2021 BMP, blood potassium 4.5 mmol/ L 3.3-5. 1 Not Available [facility] (Outpatient) [address] [place], [address], 03/21/2021 16:06:28 03/21/20 21 03/21/2021 BMP, blood CO2 27 mmol/ L 21-35 Not Available [facility] (Outpatient) [address] [place], [address], 03/21/2021 16:06:28 03/21/20 21 03/21/2021 BMP, blood BUN 16 mg/dL 6-19 Not Available [facility] (Outpatient) [address] [place], [address], 03/21/2021 16:06:28 03/21/20 21 03/21/2021 BMP, blood creatinine 0.70 mg/dL 0.5-1. 5 Not Available [facility] (Outpatient) [address] [place], [address], 03/21/2021 16:06:28 03/21/20 21 03/21/2021 BMP, blood glucose 82 mg/dL 70-99 Not Available [facility] (Outpatient) [address] [place], [address], 03/21/2021 16:06:28 03/21/20 21 03/21/2021 BMP, blood calcium 9.1 mg/dL 8.4-10 .3 Not Available [facility] (Outpatient) [address] [place], [address], 03/21/2021 16:06:28 03/21/20 21 03/21/2021 BMP, blood eGFR 103 mL/mi n/1.7 3m2 >59 Estim ated glome rular filtr ation rate calcu lated using the CKD-E PI equat ion. Not Available [facility] (Outpatient) [address] [place], [address], 03/21/2021 16:06:28 03/21/20 21 03/21/2021 BMP, blood anion gap 17 mmol/ L 10-20 Not Available [facility] (Outpatient) [address] [place], [address], 03/21/2021 16:06:28 03/21/20 21 03/21/2021 lfts (hepa tic panel ) alkaline phosphatase 58 U/L 39-117 Not Available [facility] (Out[facility]) [address] [place], [address], 03/21/2021 16:06:30 03/21/20 21 03/21/2021 lfts (hepa tic panel ) total bilirubin 0.3 mg/dL 0.0-1. 2 Not Available [facility] (Outpatient) [address] [place], [address], 03/21/2021 16:06:30 03/21/20 21 03/21/2021 lfts (hepa tic panel ) direct bilirubin <0.2 mg/dL 0-0.3 Not Available [facility] (Outpatient) [address] [place], [address], 03/21/2021 16:06:30 03/21/20 21 03/21/2021 lfts (hepa tic panel ) bilirubin (indirect) NOT CALCUL ATED mg/dL 0-1.5 Not Available [facility] (Outpatient) [address] [place], [address], 03/21/2021 16:06:30 03/21/20 21 03/21/2021 lfts (hepa tic panel ) AST 24 U/L 0-37 Not Available [facility] (Outpatient) [address] [place], [id number], 03/21/2021 16:06:30 03/21/20 21 03/21/2021 [facility] (hepa tic panel ) ALT 17 U/L 0-40 Not Available [facility] (Outpatient) [address] [place], [id number], 03/21/2021 16:06:30 03/21/20 21 03/21/2021 [facility] (hepa tic panel ) total protein 6.9 g/dL 6.5-8. 0 Not Available [facility] (Outpatient) [address] [place], [address], 03/21/2021 16:06:30 03/21/20 21 03/21/2021 lfts (hepa tic panel ) albumin 4.4 g/dL 3.9-4. 8 Not Available [facility] (Outpatient) [address] [place], [address], 03/21/2021 16:06:30 03/21/20 21 03/21/2021 lfts (hepa tic panel ) globulin 2.5 g/dL 1-4.8 Not Available [facility] (Outpatient) [address] [place], [address], 03/21/2021 16:06:30 03/21/20 21 03/21/2021 lfts (hepa tic panel ) A/G ratio 1.76 ratio 1.00-4 .80 Not Available [facility] (Outpatient) [address] [place], [address], 03/21/2021 16:06:30 03/21/20 21 03/21/2021 aceta minop hen, serum acetaminophe n <5.0 ug/mL 15.0-3 0.0 low Not Available [facility] (Outpatient) [address] [place], [address], 03/21/2021 16:16:22 03/21/20 21 03/21/2021 nereida ol, quant itati ve, serum or plasm a ethanol 327 mg/dL <10 high Not Available [facility] (Outpatient) [address] [place], [address], 03/21/2021 16:16:24 03/21/20 21 03/21/2021 salic ylate , quant itati ve, serum salicylates <0.3 mg/dL 2.8-19 .9 low Not Available [facility] (Outpatient) [address] [place], [address], 03/21/2021 16:16:25 04/24/20 21 04/25/2021 BMP, blood sodium 141 mmol/ L 133-14 6 Not Available [facility] (Outpatient) [address] [place] [address], [address], 04/25/2021 00:24:21 04/24/2004/25/2021 BMP, blood chloride 99 mmol/ L 96-108 Not Available [facility] (Outpatient) [address] [place], [address], 04/25/2021 00:24:21 04/24/20 21 04/25/2021 BMP, blood potassium 3.6 mmol/ L 3.3-5. 1 Not Available [facility] (Outpatient) [address] [place], [address], 04/25/2021 00:24:21 04/24/2004/25/2021 BMP, blood CO2 28 mmol/ L 21-35 Not Available [facility] (Outpatient) [address] [place], [address], 04/25/2021 00:24:21 04/24/2004/25/2021 BMP, blood BUN 16 mg/dL 6-19 Not Available [facility] (Outpatient) [address] [place], [address], 04/25/2021 00:24:21 04/24/2004/25/2021 BMP, blood creatinine 0.70 mg/dL 0.5-1. 5 Not Available [facility] (Outpatient) [address] [place], [address], 04/25/2021 00:24:21 04/24/2004/25/2021 BMP, blood glucose 136 mg/dL 70-99 high Not Available [facility] (Outpatient) [address] [place], [address], 04/25/2021 00:24:21 04/24/2004/25/2021 BMP, blood calcium 8.6 mg/dL 8.4-10 .3 Not Available [facility] (Outpatient) [address] [place], [address], 04/25/2021 00:24:21 04/24/2004/25/2021 BMP, blood eGFR 103 mL/mi n/1.7 3m2 >59 Estim ated glome rular filtr ation rate calcu lated using the CKD-E PI equat ion. Not Available [facility] (Outpatient) [address] [place], [address], 04/25/2021 00:24:21 04/24/2004/25/2021 BMP, blood anion gap 18 mmol/ L 10-20 Not Available [facility] (Outpatient) [address] [place], [address], 04/25/2021 00:24:21 04/24/2004/25/2021 nereida ol, quant itati ve, serum or plasm a ethanol 205 mg/dL <10 high Not Available [facility] (Outpatient) [address] [place], [address], 04/25/2021 00:36:35 05/19/20 21 05/19/2021 COVID TREY ZOE RESPI RATOR Y VIRAL ORDER (PRO) test ordered Rapid COVID has been ordere d Not Available [facility] (Outpatient) [address] [place], [address], 05/19/2021 18:05:22 05/19/20 21 05/19/2021 COVID TREY ZOE RESPI RATOR Y VIRAL ORDER (PRO) specimen source NASAL Not Available [facility] (Outpatient) [address] [place], [address], 05/19/2021 18:05:22 05/19/20 21 05/19/2021 COVID TREY [...] rizat ion can be found at the [employer] links : For Healt hcare Provi ders: https ://ww w.fda .gov/ media /8522 23/do wnloa d For Patie nts: https ://ww w.fda .gov. media /1365 24/do susietim cortesGary Not Available [facility] (Outpatient) [address] [place], [address], 05/19/2021 18:05:22 05/19/20 21 05/19/2021 BASIC METAB OLIC PANEL sodium 144 mmol/ L 133-14 6 Not Available [facility] (Outpatient) [address] [place], [address], 05/19/2021 18:10:58 05/19/20 21 05/19/2021 BASIC METAB OLIC PANEL chloride 103 mmol/ L 96-108 Not Available [facility] (Outpatient) [address] [place], [address], 05/19/2021 18:10:58 05/19/20 21 05/19/2021 BASIC METAB OLIC PANEL potassium 3.5 mmol/ L 3.3-5. 1 Not Available [facility] (Outpatient) [address] [place], [address], 05/19/2021 18:10:58 05/19/20 21 05/19/2021 BASIC METAB OLIC PANEL CO2 23 mmol/ L 21-35 Not Available [facility] (Outpatient) [address] [place], [address], 05/19/2021 18:10:58 05/19/20 21 05/19/2021 BASIC METAB OLIC PANEL BUN 18 mg/dL 6-19 Not Available [facility] (Outpatient) [address] [place], [address], 05/19/2021 18:10:58 05/19/20 21 05/19/2021 BASIC METAB OLIC PANEL creatinine 0.70 mg/dL 0.5-1. 5 Not Available [facility] (Outpatient) [address] [place], [address], 05/19/2021 18:10:58 05/19/20 21 05/19/2021 BASIC METAB OLIC PANEL glucose 76 mg/dL 70-99 Not Available [facility] (Outpatient) [address] [place], [address], 05/19/2021 18:10:58 05/19/20 21 05/19/2021 BASIC METAB OLIC PANEL calcium 8.4 mg/dL 8.4-10 .3 Not Available [facility] (Outpatient) [address] [place], [address], 05/19/2021 18:10:58 05/19/20 21 05/19/2021 BASIC METAB OLIC PANEL eGFR 103 mL/mi n/1.7 3m2 >59 Estim ated glome rular filtr ation rate calcu lated using the CKD-E PI equat ion. Not Available [facility] (Outpatient) [address] [place], [address], 05/19/2021 18:10:58 05/19/20 21 05/19/2021 BASIC METAB OLIC PANEL anion gap 22 mmol/ L 10-20 high Not Available [facility] (Outpatient) [address] [place], [address], 05/19/2021 18:10:58 05/19/20 21 05/19/2021 LFTS (HEPA TIC PANEL ) alkaline phosphatase 52 U/L 39-117 Not Available [facility] (Outpatient) [address] [place], [address], 05/19/2021 18:11:00 05/19/20 21 05/19/2021 LFTS (HEPA TIC PANEL ) total bilirubin 0.3 mg/dL 0.0-1. 2 Not Available [facility] (Outpatient) [address] [place], [address], 05/19/2021 18:11:00 05/19/20 21 05/19/2021 LFTS (HEPA TIC PANEL ) direct bilirubin <0.2 mg/dL 0-0.3 Not Available [facility] (Outpatient) [address] [place], [address], 05/19/2021 18:11:00 05/19/20 21 05/19/2021 LFTS (HEPA TIC PANEL ) bilirubin (indirect) NOT CALCUL ATED mg/dL 0-1.5 Not Available [facility] (Outpatient) [address] [place], [address], 05/19/2021 18:11:00 05/19/20 21 05/19/2021 LFTS (HEPA TIC PANEL ) AST 28 U/L 0-37 Not Available [facility] (Outpatient) [address] [place], [address], 05/19/2021 18:11:00 05/19/20 21 05/19/2021 LFTS (HEPA TIC PANEL ) ALT 16 U/L 0-40 Not Available [facility] (Outpatient) [address] [place], [address], 05/19/2021 18:11:00 05/19/20 21 05/19/2021 LFTS (HEPA TIC PANEL ) total protein 6.6 g/dL 6.5-8. 0 Not Available [facility] (Outpatient) [address] [place], [address], 05/19/2021 18:11:00 05/19/20 21 05/19/2021 LFTS (HEPA TIC PANEL ) albumin 4.3 g/dL 3.9-4. 8 Not Available [facility] (Outpatient) [address] [place], [address], 05/19/2021 18:11:00 05/19/20 21 05/19/2021 LFTS (HEPA TIC PANEL ) globulin 2.3 g/dL 1-4.8 Not Available [facility] (Outpatient) [address] [place], [address], 05/19/2021 18:11:00 05/19/20 21 05/19/2021 LFTS (HEPA TIC PANEL ) A/G ratio 1.87 ratio 1.00-4 .80 Not Available [facility] (Outpatient) [address] [place], [address], 05/19/2021 18:11:00 05/19/20 21 05/19/2021 ACETA MINOP HEN LEVEL acetaminophe n <5.0 ug/mL 15.0-3 0.0 low Not Available [facility] (Outpatient) [address] [place], [address], 05/19/2021 18:13:52 05/19/20 21 05/19/2021 NEREIDA OL, BLOOD ethanol 390 mg/dL <10 high Not Available [facility] (Outpatient) [address] [place], [address], 05/19/2021 18:13:54 05/19/20 21 05/19/2021 SALIC YLATE S salicylates <0.3 mg/dL 2.8-19 .9 low Not Available [facility] (Outpatient) [address] [place], [address], 05/19/2021 18:13:55 05/19/20 21 05/19/2021 TOXIC OLOGY SCREE N, URINE urine cannabinoids NONE DETECT ED none detect ed Cutof f: 50 ng/mL Not Available [facility] (Outpatient) [address] [place], [address], 05/19/2021 18:19:37 05/19/20 21 05/19/2021 TOXIC OLOGY SCREE N, URINE urine cocaine metab NONE DETECT ED none detect ed Cutof f: 300 ng/mL Not Available [facility] (Outpatient) [address] [place], [address], 05/19/2021 18:19:37 05/19/20 21 05/19/2021 TOXIC OLOGY SCREE N, URINE urine amphetamines NONE DETECT ED none detect ed Cutof f: 1000 ng/mL Not Available [facility] (Outpatient) [address] [place], [address], 05/19/2021 18:19:37 05/19/20 21 05/19/2021 TOXIC OLOGY SCREE N, URINE urine methadone NONE DETECT ED none detect ed Cutof f: 300 ng/mL Not Available [facility] (Outpatient) [address] [place], [address], 05/19/2021 18:19:37 05/19/20 21 05/19/2021 TOXIC OLOGY SCREE N, URINE urine opiates NONE DETECT ED none detect ed Cutof f: 300 ng/mL Not Available [facility] (Outpatient) [address] [place], [address], 05/19/2021 18:19:37 05/19/20 21 05/19/2021 TOXIC OLOGY SCREE N, URINE urine phencyclidin e NONE DETECT ED none detect ed Cutof f: 25 ng/mL Not Available [facility] (Outpatient) [address] [place], [address], 05/19/2021 18:19:37 05/19/20 21 05/19/2021 TOXIC OLOGY SCREE N, URINE urine oxycodone NONE DETECT ED none detect ed Cutof f: 300 ng/ml Not Available [facility] (Outpatient) [address] [place], [address], 05/19/2021 18:19:37 05/19/20 21 05/19/2021 TOXIC OLOGY SCREE N, URINE urine barbiturates NONE DETECT ED none detect ed Cutof f: 200 ng/mL Not Available [facility] (Outpatient) [address] [place], [address], 05/19/2021 18:19:37 05/19/20 21 05/19/2021 TOXIC OLOGY SCREE N, URINE urine benzodiazepi ne NONE DETECT ED none detect ed Cutof f: 200 ng/mL Not Available [facility] (Outpatient) [address] [place] [address], [address], 05/19/2021 18:19:37 05/19/20 21 05/19/2021 TOXIC OLOGY SCREE N, URINE urine buprenorphin e NONE DETECT ED none detect ed Cutof f: 5 ng/mL INTER PRETA TION FOR TOXIC OLOGY PANEL : Thes e resul ts are uncon firme d and shoul d be used for Medic al Treat ment purpo ses only. Not Available [facility] (Outpatient) [address] [place] [address], [address], 05/19/2021 18:19:37 05/19/20 21 05/19/2021 CBC AND DIFFE RENTI AL WBC 4.03 K/uL 4.00-1 1.00 Not Available [facility] (Outpatient) [address] [place] [address], [address], 05/19/2021 18:42:33 05/19/20 21 05/19/2021 CBC AND DIFFE RENTI AL RBC 4.69 M/uL 3.90-5 .69 Not Available [facility] (Outpatient) [address] [place] [address], [address], 05/19/2021 18:42:33 05/19/20 21 05/19/2021 CBC AND DIFFE RENTI AL HGB 15.7 g/dL 12.4-1 7.3 Not Available [facility] (Outpatient) [address] [place] [address], [address], 05/19/2021 18:42:33 05/19/20 21 05/19/2021 CBC AND DIFFE RENTI AL HCT 44.0 % 37.0-5 1.0 Not Available [facility] (Outpatient) [address] [place] [address], [address], 05/19/2021 18:42:33 05/19/20 21 05/19/2021 CBC AND DIFFE RENTI AL plt 194 K/uL 140-43 0 Not Available [facility] (Outpatient) [address] [place], [address], 05/19/2021 18:42:33 05/19/20 21 05/19/2021 CBC AND DIFFE RENTI AL MCV 93.8 fL 78.0-9 7.0 Not Available [facility] (Outpatient) [address] [place], [address], 05/19/2021 18:42:33 05/19/20 21 05/19/2021 CBC AND DIFFE RENTI AL MCH 33.5 pg 25.0-3 3.0 high Not Available [facility] (Outpatient) [address] [place], [address], 05/19/2021 18:42:33 05/19/20 21 05/19/2021 CBC AND DIFFE RENTI AL MCHC 35.7 g/dL 32.0-3 6.0 Not Available [facility] (Outpatient) [address] [place], [address], 05/19/2021 18:42:33 05/19/20 21 05/19/2021 CBC AND DIFFE RENTI AL RDW 14.0 % 11.0-1 5.0 Not Available [facility] (Outpatient) [address] [place], [address], 05/19/2021 18:42:33 05/19/20 21 05/19/2021 CBC AND DIFFE RENTI AL MPV 8.2 fL 8.4-12 .8 low Not Available [facility] (Outpatient) [address] [place] [address], [address], 05/19/2021 18:42:33 05/19/20 21 05/19/2021 CBC AND DIFFE RENTI AL NRBC 0.00 /100_ WBCs 0 Not Available [facility] (Outpatient) [address] [place], [address], 05/19/2021 18:42:33 05/19/20 21 05/19/2021 CBC AND DIFFE RENTI AL absolute NRBC 0.00 K/uL 0 Not Available [facility] (Outpatient) [address] [place], [address], 05/19/2021 18:42:33 05/19/20 21 05/19/2021 CBC AND DIFFE RENTI AL diff method Auto Not Available [facility] (Outpatient) [address] [place], [address], 05/19/2021 18:42:33 05/19/20 21 05/19/2021 CBC AND DIFFE RENTI AL neuts 58.9 % 43.0-7 5.0 Not Available [facility] (Outpatient) [address] [place], [address], 05/19/2021 18:42:33 05/19/20 21 05/19/2021 CBC AND DIFFE RENTI AL lymphs 31.0 % 18.2-4 7.4 Not Available [facility] (Outpatient) [address] [place], [address], 05/19/2021 18:42:33 05/19/20 21 05/19/2021 CBC AND DIFFE RENTI AL monos 8.7 % 4.00-1 1.00 Not Available [facility] (Outpatient) [address] [place], [address], 05/19/2021 18:42:33 05/19/20 21 05/19/2021 CBC AND DIFFE RENTI AL eos 0.2 % 0.0-8. 0 Not Available [facility] (Outpatient) [address] [place], [address], 05/19/2021 18:42:33 05/19/20 21 05/19/2021 CBC AND DIFFE RENTI AL basos 0.5 % 0.0-2. 0 Not Available [facility] (Outpatient) [address] [place], [address], 05/19/2021 18:42:33 05/19/20 21 05/19/2021 CBC AND DIFFE RENTI AL granulocytes , immature (%) 0.7 % 0.0-0. 9 Not Available [facility] (Outpatient) [address] [place], [address], 05/19/2021 18:42:33 05/19/20 21 05/19/2021 CBC AND DIFFE RENTI AL absolute neuts 2.37 K/uL 1.80-7 .70 Not Available [facility] (Outpatient) [address] [place] [address], [address], 05/19/2021 18:42:33 05/19/20 21 05/19/2021 CBC AND DIFFE RENTI AL absolute lymphs 1.25 K/uL 1.00-3 .10 Not Available [facility] (Outpatient) [address] [place] [address], [address], 05/19/2021 18:42:33 05/19/20 21 05/19/2021 CBC AND DIFFE RENTI AL absolute monos 0.35 K/uL 0.20-0 .80 Not Available [facility] (Outpatient) [address] [place], [address], 05/19/2021 18:42:33 05/19/20 21 05/19/2021 CBC AND DIFFE RENTI AL absolute eos 0.01 K/uL 0.00-0 .80 Not Available [facility] (Outpatient) [address] [place] [address], [address], 05/19/2021 18:42:33 05/19/20 21 05/19/2021 CBC AND DIFFE RENTI AL absolute basos 0.02 K/uL 0.00-0 .09 Not Available [facility] (Outpatient) [address] [place], [address], 05/19/2021 18:42:33 05/19/20 21 05/19/2021 CBC AND DIFFE RENTI AL granulocytes , immature 0.03 K/uL 0.00-0 .05 Not Available [facility] (Outpatient) [address] [place], [address], 05/19/2021 18:42:33 07/04/20 21 07/04/2021 POCT GLUCO SE whole blood glucose 117 mg/dL 70-99 high Not Available [facility] (Outpatient) [address] [place], [address], 07/04/2021 18:27:24 06/25/20 22 06/25/2022 POCT GLUCO SE whole blood glucose 73 mg/dL 70-99 Not Available [facility] (Outpatient) [address] [place], [address], 06/25/2022 11:23:43 07/14/20 22 07/14/2022 CBC AND DIFFE RENTI AL WBC 6.93 K/uL 4.00-1 1.00 Not Available [facility] (Outpatient) [address] [place] [address], [address], 07/14/2022 12:49:57 07/14/20 22 07/14/2022 CBC AND DIFFE RENTI AL RBC 4.89 M/uL 3.90-5 .69 Not Available [facility] (Outpatient) [address] [place] [address], [address], 07/14/2022 12:49:57 07/14/20 22 07/14/2022 CBC AND DIFFE RENTI AL HGB 15.8 g/dL 12.4-1 7.3 Not Available [facility] (Outpatient) [address] [place], [address], 07/14/2022 12:49:57 07/14/20 22 07/14/2022 CBC AND DIFFE RENTI AL HCT 46.0 % 37.0-5 1.0 Not Available [facility] (Outpatient) [address] [place], [address], 07/14/2022 12:49:57 07/14/20 22 07/14/2022 CBC AND DIFFE RENTI AL plt 278 K/uL 140-43 0 Not Available [facility] (Outpatient) [address] [place], [address], 07/14/2022 12:49:57 07/14/20 22 07/14/2022 CBC AND DIFFE RENTI AL MCV 94.1 fL 78.0-9 7.0 Not Available [facility] (Outpatient) [address] [place] [address], [address], 07/14/2022 12:49:57 07/14/20 22 07/14/2022 CBC AND DIFFE RENTI AL MCH 32.3 pg 25.0-3 3.0 Not Available [facility] (Outpatient) [address] [place] [address], [address], 07/14/2022 12:49:57 07/14/20 22 07/14/2022 CBC AND DIFFE RENTI AL MCHC 34.3 g/dL 32.0-3 6.0 Not Available [facility] (Outpatient) [address] [place], [address], 07/14/2022 12:49:57 07/14/20 22 07/14/2022 CBC AND DIFFE RENTI AL RDW 14.6 % 11.0-1 5.0 Not Available [facility] (Outpatient) [address] [place] [address], [address], 07/14/2022 12:49:57 07/14/20 22 07/14/2022 CBC AND DIFFE RENTI AL MPV 7.9 fL 8.4-12 .8 low Not Available [facility] (Outpatient) [address] [place], [address], 07/14/2022 12:49:57 07/14/20 22 07/14/2022 CBC AND DIFFE RENTI AL diff method Auto Not Available [facility] (Outpatient) [address] [place], [address], 07/14/2022 12:49:57 07/14/20 22 07/14/2022 CBC AND DIFFE RENTI AL neuts 72.3 % 43.0-7 5.0 Not Available [facility] (Outpatient) [address] [place], [address], 07/14/2022 12:49:57 07/14/20 22 07/14/2022 CBC AND DIFFE RENTI AL lymphs 18.5 % 18.2-4 7.4 Not Available [facility] (Outpatient) [address] [place], [address], 07/14/2022 12:49:57 07/14/20 22 07/14/2022 CBC AND DIFFE RENTI AL monos 6.8 % 4.00-1 1.00 Not Available [facility] (Outpatient) [address] [place], [address], 07/14/2022 12:49:57 07/14/20 22 07/14/2022 CBC AND DIFFE RENTI AL eos 0.4 % 0.0-8. 0 Not Available [facility] (Outpatient) [address] [place], [address], 07/14/2022 12:49:57 07/14/20 22 07/14/2022 CBC AND DIFFE RENTI AL basos 1.0 % 0.0-2. 0 Not Available [facility] (Outpatient) [address] [place], [address], 07/14/2022 12:49:57 07/14/20 22 07/14/2022 CBC AND DIFFE RENTI AL granulocytes , immature (%) 1.0 % 0.0-0. 9 high Not Available [facility] (Outpatient) [address] [place], [address], 07/14/2022 12:49:57 07/14/20 22 07/14/2022 CBC AND DIFFE RENTI AL absolute neuts 5.01 K/uL 1.80-7 .70 Not Available [facility] (Outpatient) [address] [place], [address], 07/14/2022 12:49:57 07/14/20 22 07/14/2022 CBC AND DIFFE RENTI AL absolute lymphs 1.28 K/uL 1.00-3 .10 Not Available [facility] (Outpatient) [address] [place], [address], 07/14/2022 12:49:57 07/14/20 22 07/14/2022 CBC AND DIFFE RENTI AL absolute monos 0.47 K/uL 0.20-0 .80 Not Available [facility] (Outpatient) [address] [place], [address], 07/14/2022 12:49:57 07/14/20 22 07/14/2022 CBC AND DIFFE RENTI AL absolute eos 0.03 K/uL 0.00-0 .80 Not Available [facility] (Outpatient) [address] [place], [address], 07/14/2022 12:49:57 07/14/2007/14/2022 CBC AND DIFFE RENTI AL absolute basos 0.07 K/uL 0.00-0 .09 Not Available [facility] (Outpatient) [address] [place] [address], [address], 07/14/2022 12:49:57 07/14/20 22 07/14/2022 CBC AND DIFFE RENTI AL granulocytes , immature 0.07 K/uL 0.00-0 .05 high Not Available [facility] (Outpatient) [address] [place], [address], 07/14/2022 12:49:57 07/14/20 22 07/14/2022 PT-IN R PT 10.7 sec 10.2-1 2.9 Not Available [facility] (Outpatient) [address] [place], [address], 07/14/2022 13:17:26 07/14/20 22 07/14/2022 PT-IN R INR 0.9 0.9-1. 1 Thera peuti c range for oral Vitam in K antag onist s: 2.0-3 .5 Not Available [facility] (Outpatient) [address] [place], [address], 07/14/2022 13:17:26 07/14/20 22 07/14/2022 NEREIDA OL, BLOOD ethanol 347 mg/dL <10 high Not Available [facility] (Outpatient) [address] [place], [address], 07/14/2022 13:18:50 07/14/20 22 07/14/2022 BASIC METAB OLIC PANEL sodium 144 mmol/ L 133-14 6 Not Available [facility] (Outpatient) [address] [place], [address], 07/14/2022 13:26:13 07/14/20 22 07/14/2022 BASIC METAB OLIC PANEL chloride 98 mmol/ L 96-108 Not Available [facility] (Outpatient) [address] [place], [address], 07/14/2022 13:26:13 07/14/20 22 07/14/2022 BASIC METAB OLIC PANEL potassium 3.7 mmol/ L 3.3-5. 1 Not Available [facility] (Outpatient) [address] [place], [address], 07/14/2022 13:26:13 07/14/20 22 07/14/2022 BASIC METAB OLIC PANEL CO2 29 mmol/ L 21-35 Not Available [facility] (Outpatient) [address] [place], [address], 07/14/2022 13:26:13 07/14/20 22 07/14/2022 BASIC METAB OLIC PANEL BUN 17 mg/dL 6-19 Not Available [facility] (Outpatient) [address] [place], [address], 07/14/2022 13:26:13 07/14/20 22 07/14/2022 BASIC METAB OLIC PANEL creatinine 0.70 mg/dL 0.5-1. 5 Not Available [facility] (Outpatient) [address] [place], [address], 07/14/2022 13:26:13 07/14/20 22 07/14/2022 BASIC METAB OLIC PANEL glucose 80 mg/dL 70-99 Not Available [facility] (Outpatient) [address] [place], [address], 07/14/2022 13:26:13 07/14/20 22 07/14/2022 BASIC METAB OLIC PANEL calcium 8.8 mg/dL 8.4-10 .3 Not Available [facility] (Outpatient) [address] [place], [address], 07/14/2022 13:26:13 07/14/20 22 07/14/2022 BASIC METAB OLIC PANEL eGFR 105 mL/mi n/1.7 3m2 >59 Estim ated glome rular filtr ation rate calcu lated using the CKD-E PI refit equat ion. Not Available [facility] (Outpatient) [address] [place], [address], 07/14/2022 13:26:13 07/14/20 22 07/14/2022 BASIC METAB OLIC PANEL anion gap 21 mmol/ L 10-20 high Not Available [facility] (Outpatient) [address] [place], [address], 07/14/2022 13:26:13 07/14/20 22 07/14/2022 LFTS (HEPA TIC PANEL ) alkaline phosphatase 78 U/L 39-117 Not Available [facility] (Outpatient) [address] [place], [address], 07/14/2022 13:26:15 07/14/20 22 07/14/2022 LFTS (HEPA TIC PANEL ) total bilirubin 0.5 mg/dL 0.0-1. 2 Not Available [facility] (Outpatient) [address] [place], [address], 07/14/2022 13:26:15 07/14/20 22 07/14/2022 LFTS (HEPA TIC PANEL ) direct bilirubin <0.2 mg/dL 0-0.3 Not Available [facility] (Outpatient) [address] [place], [id number], 07/14/2022 13:26:15 07/14/20 22 07/14/2022 LFTS (HEPA TIC PANEL ) bilirubin (indirect) NOT CALCUL ATED mg/dL 0-1.5 Not Available [facility] (Outpatient) [address] [place], [id number], 07/14/2022 13:26:15 07/14/20 22 07/14/2022 LFTS (HEPA TIC PANEL ) AST 56 U/L 0-37 high Not Available [facility] (Outpatient) [address] [place], [address], 07/14/2022 13:26:15 07/14/20 22 07/14/2022 LFTS (HEPA TIC PANEL ) ALT 39 U/L 0-40 Not Available [facility] (Outpatient) [address] [place], [id number], 07/14/2022 13:26:15 07/14/20 22 07/14/2022 LFTS (HEPA TIC PANEL ) total protein 6.9 g/dL 6.5-8. 0 Not Available [facility] (Outpatient) [address] [place], [address], 07/14/2022 13:26:15 07/14/20 22 07/14/2022 LFTS (HEPA TIC PANEL ) albumin 4.8 g/dL 3.9-4. 8 Not Available [facility] (Outpatient) [address] [place], [address], 07/14/2022 13:26:15 07/14/20 22 07/14/2022 LFTS (HEPA TIC PANEL ) globulin 2.1 g/dL 1-4.8 Not Available [facility] (Outpatient) [address], [place], [address], 07/14/2022 13:26:15 07/14/20 22 07/14/2022 LFTS (HEPA TIC PANEL ) A/G ratio 2.29 ratio 1.00-4 .80 Not Available [facility] (Outpatient) [address] [place], [address], 07/14/2022 13:26:15 07/14/20 22 07/14/2022 MAGNE SIUM magnesium 1.9 mg/dL 1.6-2. 6 Not Available [facility] (Outpatient) [address] [place], [address], 07/14/2022 13:26:16 07/24/20 22 07/24/2022 POCT GLUCO SE whole blood glucose 93 mg/dL 70-99 Not Available [facility] (Outpatient) [address] [place], [address], 07/24/2022 09:26:57 07/24/20 22 07/24/2022 BASIC METAB OLIC PANEL sodium 144 mmol/ L 133-14 6 Not Available [facility] (Outpatient) [address] [place], [address], 07/24/2022 10:48:25 07/24/20 22 07/24/2022 BASIC METAB OLIC PANEL chloride 101 mmol/ L 96-108 Not Available [facility] (Outpatient) [address] [place], [address], 07/24/2022 10:48:25 07/24/20 22 07/24/2022 BASIC METAB OLIC PANEL potassium 3.9 mmol/ L 3.3-5. 1 Speci men sligh tly hemol yzed, resul t may be false ly eleva lucho. Not Available [facility] (Outpatient) [address] [place], [address], 07/24/2022 10:48:25 07/24/20 22 07/24/2022 BASIC METAB OLIC PANEL CO2 27 mmol/ L 21-35 Not Available [facility] (Outpatient) [address] [place], [address], 07/24/2022 10:48:25 07/24/20 22 07/24/2022 BASIC METAB OLIC PANEL BUN 20 mg/dL 6-19 high Not Available [facility] (Outpatient) [address] [place], [address], 07/24/2022 10:48:25 07/24/20 22 07/24/2022 BASIC METAB OLIC PANEL creatinine 0.70 mg/dL 0.5-1. 5 Not Available [facility] (Outpatient) [address] [place], [address], 07/24/2022 10:48:25 07/24/20 22 07/24/2022 BASIC METAB OLIC PANEL glucose 88 mg/dL 70-99 Not Available [facility] (Outpatient) [address] [place], [address], 07/24/2022 10:48:25 07/24/20 22 07/24/2022 BASIC METAB OLIC PANEL calcium 8.0 mg/dL 8.4-10 .3 low Not Available [facility] (Outpatient) [address] [place], [address], 07/24/2022 10:48:25 07/24/20 22 07/24/2022 BASIC METAB OLIC PANEL eGFR 105 mL/mi n/1.7 3m2 >59 Estim ated glome rular filtr ation rate calcu lated using the CKD-E PI refit equat ion. Not Available [facility] (Outpatient) [address] [place], [address], 07/24/2022 10:48:25 07/24/20 22 07/24/2022 BASIC METAB OLIC PANEL anion gap 20 mmol/ L 10-20 Not Available [facility] (Outpatient) [address] [place], [address], 07/24/2022 10:48:25 07/24/20 22 07/24/2022 LIPAS E lipase 57 U/L 16-63 Not Available [facility] (Outpatient) [address] [place], [address], 07/24/2022 10:48:27 07/24/20 22 07/24/2022 LFTS (HEPA TIC PANEL ) alkaline phosphatase 60 U/L 39-117 Not Available [facility] (Outpatient) [address] [place], [address], 07/24/2022 10:48:28 07/24/20 22 07/24/2022 LFTS (HEPA TIC PANEL ) total bilirubin 0.5 mg/dL 0.0-1. 2 Not Available [facility] (Outpatient) [address] [place], [address], 07/24/2022 10:48:28 07/24/20 22 07/24/2022 LFTS (HEPA TIC PANEL ) direct bilirubin <0.2 mg/dL 0-0.3 Not Available [facility] (Outpatient) [address] [place], [address], 07/24/2022 10:48:28 07/24/20 22 07/24/2022 LFTS (HEPA TIC PANEL ) bilirubin (indirect) NOT CALCUL ATED mg/dL 0-1.5 Not Available [facility] (Outpatient) [address] [place], [address], 07/24/2022 10:48:28 07/24/20 22 07/24/2022 LFTS (HEPA TIC PANEL ) AST 93 U/L 0-37 high Not Available [facility] (Outpatient) [address] [place], [address], 07/24/2022 10:48:28 07/24/20 22 07/24/2022 LFTS (HEPA TIC PANEL ) ALT 56 U/L 0-40 high Not Available [facility] (Outpatient) [address] [place], [address], 07/24/2022 10:48:28 07/24/20 22 07/24/2022 LFTS (HEPA TIC PANEL ) total protein 5.9 g/dL 6.5-8. 0 low Not Available [facility] (Outpatient) [address] [place], [address], 07/24/2022 10:48:28 07/24/20 22 07/24/2022 LFTS (HEPA TIC PANEL ) albumin 4.1 g/dL 3.9-4. 8 Not Available [facility] (Outpatient) [address] [place], [address], 07/24/2022 10:48:28 07/24/20 22 07/24/2022 LFTS (HEPA TIC PANEL ) globulin 1.8 g/dL 1-4.8 Not Available [facility] (Outpatient) [address] [place], [address], 07/24/2022 10:48:28 07/24/20 22 07/24/2022 LFTS (HEPA TIC PANEL ) A/G ratio 2.28 ratio 1.00-4 .80 Not Available [facility] (Outpatient) [address] [place], [address], 07/24/2022 10:48:28 07/24/20 22 07/24/2022 MAGNE SIUM magnesium 1.9 mg/dL 1.6-2. 6 Not Available [facility] (Outpatient) [address] [place], [address], 07/24/2022 10:48:29 07/24/20 22 07/24/2022 LACTA TE lactate 3.39 mmol/ L 0.50-2 .20 critical high Criti lydia value : Resul ts smalls d to and read back by: liana oro ed Not Available [facility] (Outpatient) [address] [place], [address], 07/24/2022 10:53:16 07/24/20 22 07/24/2022 VENOU S BLOOD GAS pH, venous 7.36 7.31-7 .41 Not Available [facility] (Outpatient) [address] [place], [address], 07/24/2022 10:53:18 07/24/20 22 07/24/2022 VENOU S BLOOD GAS pCO2, venous 52.50 mmHg 41.00- 51.00 high Not Available [facility] (Outpatient) [address] [place], [address], 07/24/2022 10:53:18 07/24/20 22 07/24/2022 VENOU S BLOOD GAS pO2, venous 68.20 mmHg 35.00- 40.00 high Not Available [facility] (Outpatient) [address] [place], [address], 07/24/2022 10:53:18 07/24/20 22 07/24/2022 VENOU S BLOOD GAS HCO3, venous 29 mmol/ L 23-28 high Not Available [facility] (Outpatient) [address] [place], [address], 07/24/2022 10:53:18 07/24/20 22 07/24/2022 VENOU S BLOOD GAS base excess venous 2.0 mmol/ L 0.0-3. 0 Not Available [facility] (Outpatient) [address] [place], [address], 07/24/2022 10:53:18 07/24/20 22 07/24/2022 VENOU S BLOOD GAS so2, venous 90.80 % 60.00- 80.00 high Not Available [facility] (Outpatient) [address] [place], [address], 07/24/2022 10:53:18 07/24/20 22 07/24/2022 VENOU S BLOOD GAS fo2hb, venous 89.40 % 71.00- 74.00 high Not Available [facility] (Outpatient) [address] [place], [address], 07/24/2022 10:53:18 07/24/20 22 07/24/2022 VENOU S BLOOD GAS carboxy HGB 1.30 % 0-1.50 Not Available [facility] ([facility]patient) [address] [place], [address], 07/24/2022 10:53:18 07/24/20 22 07/24/2022 VENOU S BLOOD GAS methgb % 0.20 % 0-1.50 Not Available [facility] (Outpatient) [address] [place], [address], 07/24/2022 10:53:18 07/24/20 22 07/24/2022 CBC AND DIFFE RENTI AL WBC 3.10 K/uL 4.00-1 1.00 low Not Available [facility] ([facility]) [address] [place] [address], [address], 07/24/2022 10:54:18 07/24/20 22 07/24/2022 CBC AND DIFFE RENTI AL RBC 4.56 M/uL 3.90-5 .69 Not Available [facility] ([facility]) [address] [place] [address], [address], 07/24/2022 10:54:18 07/24/20 22 07/24/2022 CBC AND DIFFE RENTI AL HGB 14.8 g/dL 12.4-1 7.3 Not Available [facility] (Outpatient) [address] [place], [address], 07/24/2022 10:54:18 07/24/20 22 07/24/2022 CBC AND DIFFE RENTI AL HCT 43.1 % 37.0-5 1.0 Not Available [facility] ([facility]) [address] [place] [address], [address], 07/24/2022 10:54:18 07/24/20 22 07/24/2022 CBC AND DIFFE RENTI AL plt 113 K/uL 140-43 0 low Wright e in previ ous value s noted . Not Available [facility] (Outpatient) [address] [place] [address], [address], 07/24/2022 10:54:18 07/24/20 22 07/24/2022 CBC AND DIFFE RENTI AL MCV 94.5 fL 78.0-9 7.0 Not Available [facility] (Outpatient) [address] [place] [address], [address], 07/24/2022 10:54:18 07/24/20 22 07/24/2022 CBC AND DIFFE RENTI AL MCH 32.5 pg 25.0-3 3.0 Not Available [facility] (Outpatient) [address] [place], [address], 07/24/2022 10:54:18 07/24/20 22 07/24/2022 CBC AND DIFFE RENTI AL MCHC 34.3 g/dL 32.0-3 6.0 Not Available [facility] (Outpatient) [address] [place] [address], [address], 07/24/2022 10:54:18 07/24/20 22 07/24/2022 CBC AND DIFFE RENTI AL RDW 15.7 % 11.0-1 5.0 high Not Available [facility] (Outpatient) [address] [place] [address], [address], 07/24/2022 10:54:18 07/24/20 22 07/24/2022 CBC AND DIFFE RENTI AL MPV 8.3 fL 8.4-12 .8 low Not Available [facility] (Outpatient) [address] [place] [address], [address], 07/24/2022 10:54:18 07/24/20 22 07/24/2022 CBC AND DIFFE RENTI AL diff method Auto Not Available [facility] (Outpatient) [address] [place] [address], [address], 07/24/2022 10:54:18 07/24/20 22 07/24/2022 CBC AND DIFFE RENTI AL neuts 62.9 % 43.0-7 5.0 Not Available [facility] (Outpatient) [address] [place], [address], 07/24/2022 10:54:18 07/24/20 22 07/24/2022 CBC AND DIFFE RENTI AL lymphs 18.4 % 18.2-4 7.4 Not Available [facility] (Outpatient) [address] [place], [address], 07/24/2022 10:54:18 07/24/20 22 07/24/2022 CBC AND DIFFE RENTI AL monos 15.8 % 4.00-1 1.00 high Not Available [facility] (Outpatient) [address] [place], [address], 07/24/2022 10:54:18 07/24/20 22 07/24/2022 CBC AND DIFFE RENTI AL eos 1.3 % 0.0-8. 0 Not Available [facility] (Outpatient) [address] [place], [address], 07/24/2022 10:54:18 07/24/20 22 07/24/2022 CBC AND DIFFE RENTI AL basos 1.0 % 0.0-2. 0 Not Available [facility] (Outpatient) [address] [place] [address], [address], 07/24/2022 10:54:18 07/24/20 22 07/24/2022 CBC AND DIFFE RENTI AL granulocytes , immature (%) 0.6 % 0.0-0. 9 Not Available [facility] (Outpatient) [address] [place] [address], [address], 07/24/2022 10:54:18 07/24/20 22 07/24/2022 CBC AND DIFFE RENTI AL absolute neuts 1.95 K/uL 1.80-7 .70 Not Available [facility] (Outpatient) [address] [place] [address], [address], 07/24/2022 10:54:18 07/24/20 22 07/24/2022 CBC AND DIFFE RENTI AL absolute lymphs 0.57 K/uL 1.00-3 .10 low Not Available [facility] (Outpatient) [address] [place] [address], [address], 07/24/2022 10:54:18 07/24/20 22 07/24/2022 CBC AND DIFFE RENTI AL absolute monos 0.49 K/uL 0.20-0 .80 Not Available [facility] (Outpatient) [address] [place], [address], 07/24/2022 10:54:18 07/24/20 22 07/24/2022 CBC AND DIFFE RENTI AL absolute eos 0.04 K/uL 0.00-0 .80 Not Available [facility] (Outpatient) [address] [place], [address], 07/24/2022 10:54:18 07/24/20 22 07/24/2022 CBC AND DIFFE RENTI AL absolute basos 0.03 K/uL 0.00-0 .09 Not Available [facility] (Outpatient) [address] [place], [address], 07/24/2022 10:54:18 07/24/20 22 07/24/2022 CBC AND DIFFE RENTI AL granulocytes , immature 0.02 K/uL 0.00-0 .05 Not Available [facility] (Outpatient) [address] [place], [address], 07/24/2022 10:54:18 07/24/20 22 07/24/2022 PT-IN R PT 10.9 sec 10.2-1 2.9 Not Available [facility] (Outpatient) [address] [place], [address], 07/24/2022 11:28:16 07/24/20 22 07/24/2022 PT-IN R INR 1.0 0.9-1. 1 Thera peuti c range for oral Vitam in K antag onist s: 2.0-3 .5 Not Available [facility] (Outpatient) [address] [place], [address], 07/24/2022 11:28:16 07/24/20 22 07/24/2022 LAB ADD ON contact information [id number] Not Available [facility] (Outpatient) [address] [place], [address], 07/24/2022 11:45:46 07/24/20 22 07/24/2022 LAB ADD ON test requested ETHANO L Not Available [facility] (Outpatient) [address] [place], [address], 07/24/2022 11:45:46 07/24/20 22 07/24/2022 LAB ADD ON status Add on order being proce ssed. Floor or provi jimmy will be notif ied if testi ng canno t be perfo rmed Not Available [facility] (Outpatient) [address] [place], [address], 07/24/2022 11:45:46 07/24/20 22 07/24/2022 LACTA TE lactate 4.21 mmol/ L 0.50-2 .20 critical high Criti lydia value : Resul ts smalls d to and read back by: michael bentley ed [id number] Not Available [facility] (Outpatient) [address] [place], [address], 07/24/2022 12:35:04 07/24/20 22 07/24/2022 NEREIDA OL, BLOOD ethanol 288 mg/dL <10 high Not Available [facility] (Outpatient) [address] [place], [address], 07/24/2022 13:04:37 07/24/20 22 07/24/2022 COVID TREY ZOE RESPI RATOR Y VIRAL ORDER (PRO) test ordered Rapid COVID has been ordere d Not Available [facility] (Outpatient) [address] [place], [address], 07/24/2022 17:17:25 07/24/20 22 07/24/2022 COVID TREY ZOE RESPI RATOR Y VIRAL ORDER (PRO) specimen source/descr iption NASAL Not Available [facility] (Outpatient) [address] [place], [address], 07/24/2022 17:17:25 07/24/20 22 07/24/2022 COVID TREY [...] 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 Not Available [facility] (Outpatient) [address] [place] [address], [address], 07/24/2022 17:17:25 10/13/20 23 10/13/2023 CBC AND DIFFE RENTI AL WBC 3.27 K/uL 4.00-1 1.00 low Not Available [facility] (Outpatient) [address] [place] [address], [address], 10/13/2023 20:02:27 10/13/20 23 10/13/2023 CBC AND DIFFE RENTI AL RBC 4.38 M/uL 3.90-5 .69 Not Available [facility] (Outpatient) [address] [place] [address], [address], 10/13/2023 20:02:27 10/13/20 23 10/13/2023 CBC AND DIFFE RENTI AL HGB 14.5 g/dL 12.4-1 7.3 Not Available [facility] (Outpatient) [address] [place] [address], [address], 10/13/2023 20:02:27 10/13/20 23 10/13/2023 CBC AND DIFFE RENTI AL HCT 41.1 % 37.0-5 1.0 Not Available [facility] (Outpatient) [address] [place], [address], 10/13/2023 20:02:27 10/13/20 23 10/13/2023 CBC AND DIFFE RENTI AL plt 232 K/uL 140-43 0 Not Available [facility] (Outpatient) [address] [place], [address], 10/13/2023 20:02:27 10/13/20 23 10/13/2023 CBC AND DIFFE RENTI AL MCV 93.8 fL 78.0-9 7.0 Not Available [facility] (Outpatient) [address] [place], [address], 10/13/2023 20:02:27 10/13/20 23 10/13/2023 CBC AND DIFFE RENTI AL MCH 33.1 pg 25.0-3 3.0 high Not Available [facility] (Outpatient) [address] [place], [address], 10/13/2023 20:02:27 10/13/20 23 10/13/2023 CBC AND DIFFE RENTI AL MCHC 35.3 g/dL 32.0-3 6.0 Not Available [facility] (Outpatient) [address] [place], [address], 10/13/2023 20:02:27 10/13/20 23 10/13/2023 CBC AND DIFFE RENTI AL RDW 13.0 % 11.0-1 5.0 Not Available [facility] (Outpatient) [address] [place], [address], 10/13/2023 20:02:27 10/13/20 23 10/13/2023 CBC AND DIFFE RENTI AL MPV 8.6 fL 8.4-12 .8 Not Available [facility] (Outpatient) [address] [place], [address], 10/13/2023 20:02:27 10/13/20 23 10/13/2023 CBC AND DIFFE RENTI AL diff method Auto Not Available [facility] (Outpatient) [address] [place], [address], 10/13/2023 20:02:27 10/13/20 23 10/13/2023 CBC AND DIFFE RENTI AL neuts 52.0 % 43.0-7 5.0 Not Available [facility] (Outpatient) [address] [place], [address], 10/13/2023 20:02:27 10/13/20 23 10/13/2023 CBC AND DIFFE RENTI AL lymphs 36.1 % 18.2-4 7.4 Not Available [facility] (Outpatient) [address] [place], [address], 10/13/2023 20:02:27 10/13/20 23 10/13/2023 CBC AND DIFFE RENTI AL monos 9.2 % 4.00-1 1.00 Not Available [facility] (Outpatient) [address] [place], [address], 10/13/2023 20:02:27 10/13/20 23 10/13/2023 CBC AND DIFFE RENTI AL eos 1.2 % 0.0-8. 0 Not Available [facility] (Outpatient) [address] [place], [address], 10/13/2023 20:02:27 10/13/20 23 10/13/2023 CBC AND DIFFE RENTI AL basos 0.9 % 0.0-2. 0 Not Available [facility] (Outpatient) [address] [place], [address], 10/13/2023 20:02:27 10/13/20 23 10/13/2023 CBC AND DIFFE RENTI AL granulocytes , immature (%) 0.6 % 0.0-0. 9 Not Available [facility] (Outpatient) [address] [place], [address], 10/13/2023 20:02:27 10/13/20 23 10/13/2023 CBC AND DIFFE RENTI AL absolute neuts 1.70 K/uL 1.80-7 .70 low Not Available [facility] (Outpatient) [address] [place], [address], 10/13/2023 20:02:27 10/13/20 23 10/13/2023 CBC AND DIFFE RENTI AL absolute lymphs 1.18 K/uL 1.00-3 .10 Not Available [facility] (Outpatient) [address] [place], [address], 10/13/2023 20:02:27 10/13/20 23 10/13/2023 CBC AND DIFFE RENTI AL absolute monos 0.30 K/uL 0.20-0 .80 Not Available [facility] (Outpatient) [address] [place], [address], 10/13/2023 20:02:27 10/13/20 23 10/13/2023 CBC AND DIFFE RENTI AL absolute eos 0.04 K/uL 0.00-0 .80 Not Available [facility] (Outpatient) [address] [place], [address], 10/13/2023 20:02:27 10/13/20 23 10/13/2023 CBC AND DIFFE RENTI AL absolute basos 0.03 K/uL 0.00-0 .09 Not Available [facility] (Outpatient) [address] [place], [address], 10/13/2023 20:02:27 10/13/20 23 10/13/2023 CBC AND DIFFE RENTI AL granulocytes , immature 0.02 K/uL 0.00-0 .05 Not Available [facility] (Outpatient) [address] [place], [address], 10/13/2023 20:02:27 10/13/20 23 10/13/2023 TOXIC OLOGY SCREE N, URINE urine cannabinoids NONE DETECT ED none detect ed Cutof f: 50 ng/mL Not Available [facility] (Outpatient) [address] [place], [address], 10/13/2023 20:13:15 10/13/20 23 10/13/2023 TOXIC OLOGY SCREE N, URINE urine cocaine metab NONE DETECT ED none detect ed Cutof f: 300 ng/mL Not Available [facility] (Outpatient) [address] [place], [address], 10/13/2023 20:13:15 10/13/20 23 10/13/2023 TOXIC OLOGY SCREE N, URINE urine amphetamines NONE DETECT ED none detect ed Cutof f: 1000 ng/mL Not Available [facility] (Outpatient) [address] [place], [address], 10/13/2023 20:13:15 10/13/20 23 10/13/2023 TOXIC OLOGY SCREE N, URINE urine methadone NONE DETECT ED none detect ed Cutof f: 300 ng/mL Not Available [facility] (Outpatient) [address] [place], [address], 10/13/2023 20:13:15 10/13/20 23 10/13/2023 TOXIC OLOGY SCREE N, URINE urine opiates NONE DETECT ED none detect ed Cutof f: 300 ng/mL Not Available [facility] (Outpatient) [address] [place], [address], 10/13/2023 20:13:15 10/13/20 23 10/13/2023 TOXIC OLOGY SCREE N, URINE urine phencyclidin e NONE DETECT ED none detect ed Cutof f: 25 ng/mL Not Available [facility] (Outpatient) [address] [place], [address], 10/13/2023 20:13:15 10/13/20 23 10/13/2023 TOXIC OLOGY SCREE N, URINE urine oxycodone NONE DETECT ED none detect ed Cutof f: 300 ng/mL Not Available [facility] (Outpatient) [address] [place], [address], 10/13/2023 20:13:15 10/13/20 23 10/13/2023 TOXIC OLOGY SCREE N, URINE urine barbiturates NONE DETECT ED none detect ed Cutof f: 200 ng/mL Not Available [facility] (Outpatient) [address] [place], [address], 10/13/2023 20:13:15 10/13/20 23 10/13/2023 TOXIC OLOGY SCREE N, URINE urine benzodiazepi ne NONE DETECT ED none detect ed Cutof f: 200 ng/mL Not Available [facility] (Outpatient) [address] [place], [address], 10/13/2023 20:13:15 10/13/20 23 10/13/2023 TOXIC OLOGY SCREE N, URINE urine buprenorphin e NONE DETECT ED none detect ed Cutof f: 5 ng/mL Not Available [facility] (Outpatient) [address] [place], [address], 10/13/2023 20:13:15 10/13/20 23 10/13/2023 TOXIC OLOGY SCREE N, URINE fentanyl, urine NONE DETECT ED none detect ed Cutof f: 5 ng/mL INTER PRETA TION FOR TOXIC OLOGY PANEL : Thes e resul ts are uncon firme d and shoul d be used for Medic al Treat ment purpo ses only. Not Available [facility] (Outpatient) [address] [place], [address], 10/13/2023 20:13:15 10/13/20 23 10/13/2023 BASIC METAB OLIC PANEL sodium 145 mmol/ L 133-14 6 Not Available [facility] (Outpatient) [address] [place], [address], 10/13/2023 20:29:28 10/13/20 23 10/13/2023 BASIC METAB OLIC PANEL chloride 109 mmol/ L 96-108 high Not Available [facility] (Outpatient) [address] [place], [address], 10/13/2023 20:29:28 10/13/20 23 10/13/2023 BASIC METAB OLIC PANEL potassium 3.8 mmol/ L 3.3-5. 1 Not Available [facility] (Outpatient) [address] [place], [address], 10/13/2023 20:29:28 10/13/20 23 10/13/2023 BASIC METAB OLIC PANEL CO2 23 mmol/ L 21-35 Not Available [facility] (Outpatient) [address] [place], [address], 10/13/2023 20:29:28 10/13/20 23 10/13/2023 BASIC METAB OLIC PANEL BUN 12 mg/dL 6-19 Not Available [facility] (Outpatient) [address] [place], [address], 10/13/2023 20:29:28 10/13/20 23 10/13/2023 BASIC METAB OLIC PANEL creatinine 0.80 mg/dL 0.5-1. 5 Not Available [facility] (Outpatient) [address] [place], [address], 10/13/2023 20:29:28 10/13/20 23 10/13/2023 BASIC METAB OLIC PANEL glucose 92 mg/dL 70-99 Not Available [facility] (Outpatient) [address] [place], [address], 10/13/2023 20:29:28 10/13/20 23 10/13/2023 BASIC METAB OLIC PANEL calcium 9.1 mg/dL 8.4-10 .3 Not Available [facility] (Outpatient) [address] [place], [address], 10/13/2023 20:29:28 10/13/20 23 10/13/2023 BASIC METAB OLIC PANEL eGFR 101 mL/mi n/1.7 3m2 >59 Estim ated glome rular filtr ation rate calcu lated using the CKD-E PI refit equat ion. Not Available [facility] (Outpatient) [address] [place], [address], 10/13/2023 20:29:28 10/13/20 23 10/13/2023 BASIC METAB OLIC PANEL anion gap 17 mmol/ L 10-20 Not Available [facility] (Outpatient) [address] [place], [address], 10/13/2023 20:29:28 10/13/20 23 10/13/2023 LFTS (HEPA TIC PANEL ) alkaline phosphatase 48 U/L 39-117 Not Available [facility] (Outpatient) [address] [place], [address], 10/13/2023 20:29:31 10/13/20 23 10/13/2023 LFTS (HEPA TIC PANEL ) total bilirubin <0.2 mg/dL 0.0-1. 2 Not Available [facility] (Outpatient) [address] [place], [address], 10/13/2023 20:29:31 10/13/20 23 10/13/2023 LFTS (HEPA TIC PANEL ) direct bilirubin <0.2 mg/dL 0-0.3 Not Available [facility] (Outpatient) [address] [place], [address], 10/13/2023 20:29:31 10/13/20 23 10/13/2023 LFTS (HEPA TIC PANEL ) bilirubin (indirect) NOT CALCUL ATED mg/dL 0-1.5 Not Available [facility] (Outpatient) [address] [place], [address], 10/13/2023 20:29:31 10/13/20 23 10/13/2023 LFTS (HEPA TIC PANEL ) AST 20 U/L 0-37 Not Available [facility] (Outpatient) [address] [place], [id number], 10/13/2023 20:29:31 10/13/20 23 10/13/2023 LFTS (HEPA TIC PANEL ) ALT 18 U/L 0-40 Not Available [facility] (Outpatient) [address] [place], [address], 10/13/2023 20:29:31 10/13/20 23 10/13/2023 LFTS (HEPA TIC PANEL ) total protein 6.8 g/dL 6.5-8. 0 Not Available [facility] (Outpatient) [address] [place], [address], 10/13/2023 20:29:31 10/13/20 23 10/13/2023 LFTS (HEPA TIC PANEL ) albumin 4.7 g/dL 3.9-4. 8 Not Available [facility] (Outpatient) [address] [place], [address], 10/13/2023 20:29:31 10/13/20 23 10/13/2023 LFTS (HEPA TIC PANEL ) globulin 2.1 g/dL 1-4.8 Not Available [facility] (Outpatient) [address] [place], [address], 10/13/2023 20:29:31 10/13/20 23 10/13/2023 LFTS (HEPA TIC PANEL ) A/G ratio 2.24 ratio 1.00-4 .80 Not Available [facility] (Outpatient) [address] [place], [address], 10/13/2023 20:29:31 10/13/20 23 10/13/2023 ACETA MINOP HEN LEVEL acetaminophe n <5.0 ug/mL 15.0-3 0.0 low Not Available [facility] (Outpatient) [address] [place], [address], 10/13/2023 20:33:40 10/13/20 23 10/13/2023 NEREIDA OL, BLOOD ethanol 255 mg/dL <10 high Not Available [facility] (Outpatient) [address] [place], [address], 10/13/2023 20:33:43 10/13/20 23 10/13/2023 SALIC YLATE S salicylates <0.3 mg/dL 2.8-19 .9 low Not Available [facility] (Outpatient) [address] [place], [address], 10/13/2023 20:33:44 09/28/20 17 09/28/2017 audio gram No observ ation record ed. [email or web address] Not Available 2016 10:10:52 10/17/20 17 10/17/2017 XR, shoul jimmy No observ ation record ed. [facility] (Outpt Imaging) [address] [place], [address], 10/24/2017 09:57:50 06/01/20 20 06/01/2020 XR, hip No observ ation record ed. [email or web address] [facility] (Outpt Imaging) [address] [place], [address], 06/02/2020 17:00:04 07/08/20 20 07/08/2020 CT abdom [...] MD 0 CC Recipi ents: Annabelle Rich, WEIGHT ENGINEER - Fax Final result ANNABELLE RICH [email or web address] [facility] [address] [place] [address], [address], 07/13/2020 10:46:57 07/08/20 20 07/08/2020 CT, abdom en + pelvi s No observ ation record ed. 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 Interp retati on has been includ ed in the [facility] encoun ter note for this date of servic e. Final result ANNABELLE BRAEDEN [email or web address] [facility] [address] [place] [address], [address], 03/31/2021 11:21:25 05/12/20 22 05/12/2022 CT, cervi [...] MD 2 Final result ANNABELLE HANSONZ [email or web address] [facility] [address] [place] [address] [place], [address], 05/13/2022 07:41:12 05/12/20 22 05/12/2022 CT, head, [...] Rodriguez MD 2 Final result ANNABELLE RICH [email or web address] [address] [place] [address], [address], 05/13/2022 07:41:13 07/14/20 22 07/14/2022 CT, head, [...] 22 1:16 PM Interp reted by: Ashlyn cMdonald MD Signed by: Ashlyn Mcdonald MD 07/14/22 Final result etoh ANNABELLE [facility]ICH [facility] [place] [address] Diagnostic Imaging [address] [place] [address], [address], 07/14/2022 15:29:25 07/24/20 22 07/24/2022 xr chest [...] a rule out pneumo jessica ANNABELLE RICH [email or web address] [facility] [address] [place], [address], 07/25/2022 09:59:45 07/27/20 23 07/27/2023 CT, head, w/o contr ast No observ ation record ed. [facility] (Medical Records) [address] [place], [address], 07/27/2023 13:17:11 07/27/20 23 07/27/2023 XR, chest No observ ation record ed. [facility] (Medical Records) [address] [place], [address], 07/27/2023 13:23:27 10/13/20 23 10/13/2023 CT, head, [...] 3 Final result ANNABELLE CARYLMAJO RICH [email or web address] [facility] [address] [facility], [place], [address], 10/16/2023 10:51:38 10/13/20 23 10/13/2023 CT, cervi [...] MBBS 3 Final result ANNABELLE RICH [email or web address] [facility] [address], [place], [address], 10/16/2023 10:51:38 Result Notes None recorded. Problems Name Problem SNOMED Code Status Onset Date Resolution Date Notes Provider Name and Address Organization Details Recorded Time Tobacco dependence, episodic 551373206 Completed 201612/25/2017 [place], [address], [facility] 8 13:21:13 Ex-smoker 1125547 Active 2017 [place], [address], [facility] 8 13:15:50 Deep venous thrombosis 027751381 Active 2017 R[place]ANDO [place], [address], [facility] 8 13:15:53 Mixed hyperlipide kassi 169950629 [place], [address], [facility] 6 15:34:08 Neoplasm of uncertain behavior of skin 81815217 Completed 10/02/2013 ROLANDO [place], [address], [facility] 6 15:12:15 Allergic rhinitis caused by pollen 83678036 Active [place], [address], [facility] 6 15:12:15 Hearing loss 88300615 [place], [address], [facility] 6 15:34:08 Overweight 435685331 [place], [address], [facility] 6 15:34:08 Impacted cerumen 46171780 Completed 10/02/2013 Gen Aldana PA-C [address] [place], [place] [address], [address], [facility] 6 15:12:15 Chronic alcoholism in remission 247916618 Active Gen Aldana PA-C [address] [place] [address] [place], [address], [facility] 6 15:34:08 Anxiety state 845320191 Active Gen Aldana PA-C [address] [place] [address] [place], [address], [facility] 6 15:34:08 Insomnia 382439286 Active Gen Aldana PA-C [address] [place] [address] [place], [address], [facility] 6 15:12:15 Benign prostatic hyperplasia 061377034 Active Gen Aldana PA-C [address] [place], [place] [address], [address], [facility] 6 15:12:15 Problem Notes None recorded. Procedures Surgical History Date Name Laterality Status Provider Name and Address Organization Details Recorded Time 6 Smoking cessation counseling completed TAURUS Pop [facility] 09/23/2016 07:19:31 4 Destinee - Colonoscopy completed Sarkis Felipe MD [address] [place] [address], [phone], [facility] 04/25/2014 11:47:03 9 Hip Replacement completed Gen Aldana PA-C [address] [place] [address], [address], [facility] 12/02/2011 10:38:13 8 Arthroscopy completed Gen Aldana PA-C [address] [place] [address], [address], [facility] 12/02/2011 10:38:13 Imaging Results Imaging Date Name Status LastModified by Organiz ation Details LastModified Time 09/28/2017 audiogram completed lisa Information no t available 09/28/2017 10:10:52 10/17/2017 XR, shoulder completed [email or web address] [facility] (Outpt Imaging) [address] [place], [address], 10/24/2017 09:57:50 06/01/2020 XR, hip completed [email or web address] [facility] (Outpt Imaging) [address] , [place], [address], 06/02/2020 17:00:04 07/08/2020 CT abdomen/pelvis with contrast completed [address] [facility] [address] [place] [address], [address], 07/13/2020 10:46:57 07/08/2020 CT, abdomen + pelvis completed [address], [address], 07/13/2020 10:46:58 07/09/2020 xr abdomen series supine with decubitis/erec t and single view chest completed [address] [facility] [address] [place] [address], [address], 07/13/2020 10:46:58 07/11/2020 xr abdomen series supine with decubitis/erec t and single view chest completed [address] [facility] [address] [place] [address], [address], 07/13/2020 10:46:58 03/31/2021 xr knee 4 or more views (right) completed [address] [facility] [address] [place] [address], [address], 03/31/2021 11:21:25 05/12/2022 CT, cervical spine, w/o contrast completed [address] [facility] [address] [place] [address], [address], 05/13/2022 07:41:12 05/12/2022 CT, head, w/o contrast completed [address] [facility] [address] [place] [address], [address], 05/13/2022 07:41:13 07/14/2022 CT, head, w/o contrast completed [address] [facility] [address] [place] [address], [address], 07/14/2022 15:29:25 07/24/2022 xr chest Pa and lateral 2 views completed [email or web address] [facility] [address] [place] [address], [address], 07/25/2022 09:59:45 07/27/2023 CT, head, w/o contrast completed [facility] (Medical Records) [address] [place] [address], [address], 07/27/2023 13:17:11 07/27/2023 XR, chest completed [facility] (Medical Records) [address] [place] [address], [address], 07/27/2023 13:23:27 10/13/2023 CT, head, w/o contrast completed [address] [facility] [address] [place] [address], [address], 10/16/2023 10:51:38 10/13/2023 CT, cervical spine, w/o contrast completed [address] [facility] [address] [place] [address], [address], 10/16/2023 10:51:38 Procedure Notes None recorded. Medical [...] DateTime 04/03/2017 173.36 cm Gen Aldana PA-C [address] [place] [address], [address], [facility] 04/03/2017 16:40:25 Date Recorded Body height Body weight Body mass index (BMI) Heart rate Systolic blood pressure Diastolic blood pressure Provider Name and Address Organization Details Last Updated DateTime 7 173.36 cm 34204.9 2 g 29.3 kg/m2 72 /min 112 mm[Hg] 68 mm[Hg] Patdarren Henry [facility] 7 13:11:52 Date Recorded Body height Body mass index (BMI) Body weight Heart rate Systolic blood pressure Diastolic blood pressure Provider Name and Address Organization Details Last Updated DateTime 7 173.36 cm 27.1 kg/m2 22447.1 3 g 80 /min 98 mm[Hg] 72 mm[Hg] Cassandra Horton MA [facility] 7 07:30:37 Date Recorded Body height Body mass index (BMI) Body weight Heart rate Oxygen saturation Oxygen saturation in Arterial blood by Pulse oximetry Systolic blood pressure Diastolic blood pressure Provider Name and Address Organization Details Last Updated DateTime 8 173.36 cm 27.2 kg/m2 26466.3 3 g 81 /min 94 % 94 % 128 mm[Hg] 80 mm[Hg] Sharon Pugh [facility] 8 12:44:42 Social History Question Answer Notes LastModified by Organizat ion Details LastModified Time Tobacco Smoking Status Never [facility]oker [facility] 10/24/2017 07:29:04 Do You Have An Advance [...] 1986, Aneudy 1991, Rolando 1994 (live In [place]) Information not available 12/02/2011 Seat Belts Used [...] ed as Cancer - Prosta te) [id number] Not available 06/24/2013 03:00:24 Notes:paternal uncles 6 0, 61 Medical History Condition Response Hearing Loss Y Hyperlipidemia Y Benign Prostatic Hypertrophy Y Immunizations Vaccine Type Date Status Note Provider Nam e and Address Organization Details Recorded Time Influenza, split virus, trivalent, preservative 2 completed Not Available [facility] 11/30/2019 02:27:10 Influenza, split virus, trivalent, PF 3 completed Not Available [facility] 11/30/2019 02:39:40 Hep B, unspecified formulation 9 completed JULIETA Arellano [facility] 12/27/2011 08:14:47 Hep B, unspecified formulation 0 completed JULIETA Arellano [facility] 12/27/2011 08:14:47 Td(adult) unspecified formulation 9 completed JULIETA Arellano, [facility] 12/27/2011 08:14:47 Hep B, unspecified formulation 9 completed JULIETA Arellano, [facility] 12/27/2011 08:14:47 Influenza, split virus, quadrivalent, PF 6 completed Not Available [facility] 11/30/2019 02:36:28 Influenza, split virus, quadrivalent, PF 6 completed Not Available [facility] 11/30/2019 02:30:31 Influenza, split virus, quadrivalent, preservative 8 completed Sharon govea, [facility] 12/25/2017 12:43:46 Past Encounters Encounter ID Performer Location Encounter Start Date Encounter Closed Date Diagnosis/Indication Diagnosis SNOMED-CT Code Diagnosis ICD10 Code Diagnosis Note [id number] ROLANDO Holloway [facility], OFFICE [address] [place] [address] [place] [address] 12/02/2011 09:47:31 12/02/2011 10:56:24 [id number] [facility], OFFICE [address] [place] [address] [place] [address] 02/09/2012 14:08:52 02/09/2012 15:11:09 [id number] [facility], OFFICE [address] [place] [address] [place] [address] 04/12/2012 13:01:36 04/12/2012 13:33:44 [id number] Physical Therapy, [address] [place] [place] [address] 04/24/2012 09:51:29 04/25/2012 10:17:46 [id number] Physical Therapy, [place] [address] [facility] [place] [address] 04/25/2012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
[2025-01-23 19:47] VITALS: BP 109/69; PULSE 93; RESP 14; TEMP 36.6; O2SAT 95
[2025-01-23] MEDS: Nicotine Polacrilex 2 MG GUM BUCCAL (20:53)
[2025-01-23] MEDS: LORazepam 1 MG TABLET 2 MG PO (20:53)
[2025-01-23 20:57] LABS: MANUAL DIFF FLAG NO
[2025-01-23 20:59] LABS: Basophils Percent Auto 0.8 % (0-2); Eosinophils Percent Auto 0.3 % (0-4); Hematocrit 39.7 % (42.0-52.0); Hemoglobin 13.8 g/dl (14.0-18.0); Imm Gran Abs Auto 0.06 X10*3/uL (0.00-0.03); Imm Gran Pct Auto 1.6 % (0.0-0.4); Lymphocytes Absolute Auto 1.1 X10*3/uL (1.2-4.9); Lymphocytes Percent Auto 29.7 % (20-40); Mean Corpuscular HGB Conc 34.8 g/dl (31.0-36.0); Mean Corpuscular Hemoglobin 32.5 pg (27.0-33.0); Mean Corpuscular Volume 93.4 fL (80.0-98.0); Mean Platelet Volume 8.3 fL (9.4-12.4); Monocytes Absolute Auto 0.6 X10*3/uL (0.1-1.2); Monocytes Percent Auto 15.4 % (2-11); Neutrophils Percent Auto 52.2 % (45-73); Platelet Count 218 X10*3/uL (160-400); Red Blood Count 4.25 X10*6/uL (4.60-5.80); Red Cell Distribution Width 14.2 % (11.0-16.0); White Blood Count 3.8 X10*3/uL (4.8-10.8)
[2025-01-23 21:10] LABS: Ethanol 263 mg/dL
[2025-01-23 21:14] LABS: Alanine Aminotransferase 22 U/L (0-40); Alkaline Phosphatase 50 U/L (39-117); Anion Gap 18 (12-20); Aspartate Amino Transferase 27 U/L (5-37); Bilirubin Total 0.2 mg/dL (0.0-1.0); Blood Urea Nitrogen 20 mg/dL (9-16); Calcium 8.6 mg/dL (8.4-10.2); Carbon Dioxide 22 mmol/L (22-29); Chloride 108 mmol/L (96-108); Creatinine Clr Calc Pharmacy 88.3; Estimated Glomerular Filt Rate > 60; Glucose Random 158 mg/dL (60-115); Magnesium 2.2 mg/dL (1.6-2.6); Potassium 3.8 mmol/L (3.3-5.1); Sodium 144 mmol/L (135-145); Total Protein 6.6 g/dL (6.5-8.0)
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
[2025-01-24 04:09] VITALS: BP 107/72; PULSE 92; RESP 16; TEMP 37.1; O2SAT 95
[2025-01-24 05:54] VITALS: BP 130/84; PULSE 85; RESP 16; TEMP 36.3; O2SAT 94
[2025-01-24 06:07] VITALS: BP 130/84; PULSE 85; RESP 16; TEMP 36.3; O2SAT 94
== END 2025-01-24 06:14 | disposition home or self-care (01) ==
PROVIDERS: Emergency Provider Internal Medicine
DX: F10.20 Alcohol dependence, uncomplicated (principal); Y90.8 Blood alcohol level of 240 mg/100 ml or more; F32.A Depression, unspecified; Z86.718 Personal history of other venous thrombosis and embolism; Z79.01 Long term (current) use of anticoagulants; Z79.899 Other long term (current) drug therapy
CPT/HCPCS: 36415; 80053; 80307; 83735; 85025; 99283; 99284

== ENCOUNTER 2025-01-24 14:51 | Emergency (ER) | payer MEDICAID, SELFPAY ==
--- NOTE | ~2025-01-24 | CT_ITS ---
CLINICAL HISTORY: fall on Eliquis CT head without contrast Comparison: CT/SR - CT HEAD/BRAIN WO IV CON - 08/15/24 19:26 EDT Findings: No intra-axial mass, midline shift, hydrocephalus, or acute hemorrhage. Mild diffuse volume loss. There is no sinus or mastoid fluid. The orbits are unremarkable. There is no acute fracture. IMPRESSION: 1. No acute intracranial findings. This document has been electronically signed by: Cristian Lam MD on 01/24/2025 18:06:57
--- NOTE | ~2025-01-24 | CT_ITS ---
CLINICAL HISTORY: fall CT cervical spine without contrast Comparison: CT/SR - CT CERVICAL SPINE WO IV CON - 08/15/24 19:26 EDT Findings: Chronic minimal anterolisthesis of C3 on C4. Degenerative disc disease at C5-C6 and C6-C7. No acute fractures or dislocations. No acute findings on limited view of the intracranial contents. Soft tissues of the neck are normal. Lung apices are clear. IMPRESSION: 1. No acute cervical spine findings. This document has been electronically signed by: Cristian Lam MD on 01/24/2025 18:11:08
[2025-01-24 15:05] VITALS: BP 122/69; BP 136/98; PULSE 80; PULSE 85; RESP 14; O2SAT 93; O2SAT 95; BMI 26.6
[2025-01-24 15:47] LABS: Basophils Percent Auto 0.8 % (0-2); Hematocrit 36.3 % (42.0-52.0); Hemoglobin 12.8 g/dl (14.0-18.0); Imm Gran Abs Auto 0.06 X10*3/uL (0.00-0.03); Imm Gran Pct Auto 1.7 % (0.0-0.4); Lymphocytes Percent Auto 26.2 % (20-40); MANUAL DIFF FLAG NO; Mean Corpuscular HGB Conc 35.3 g/dl (31.0-36.0); Mean Corpuscular Hemoglobin 32.4 pg (27.0-33.0); Mean Corpuscular Volume 91.9 fL (80.0-98.0); Mean Platelet Volume 8.2 fL (9.4-12.4); Monocytes Absolute Auto 0.6 X10*3/uL (0.1-1.2); Monocytes Percent Auto 15.7 % (2-11); NRBC Pct Auto 0.6 /100WBC (0.0-0.2); Neutrophils Percent Auto 55.6 % (45-73); Platelet Count 205 X10*3/uL (160-400); Red Blood Count 3.95 X10*6/uL (4.60-5.80); Red Cell Distribution Width 14.5 % (11.0-16.0); White Blood Count 3.6 X10*3/uL (4.8-10.8)
--- NOTE | 2025-01-24 15:55 | ED_ITS ---
HPI - General Adult General Chief complaint: Fall Stated complaint: UNWITT FALL, 2 BOTTLES OF VODKA PER EMS Time Seen by Provider: 01/24/25 15:52 Source: patient and EMS Mode of arrival: EMS Limitations: no limitations History of Present Illness ED Provider: Dipti Vela PA-C HPI narrative: Patient is a 64 year old male with a past medical history of DVT and AUD who presents to the ER after suffering from a fall at home. Patient is a poor historian and not able to provide good history of events. He consumed 2L of vodka per EMS. He does not recall falling or being transported by EMS. He states he has no areas of pain or any other complaints. States he is currently taking eliquis for his DVT. Relieving factors: none Exacerbating factors: none Associated symptoms: denies other symptoms Treatments prior to arrival: none Related Data Home Medications ?Medication ?Instructions ?Recorded ?Confirmed acetaminophen 500 mg tablet 500 mg PO Q6H PRN mild pain 08/23/24 10/01/24 naltrexone 50 mg tablet 50 mg PO QAM 08/23/24 10/01/24 apixaban 5 mg tablet (Eliquis) 5 mg PO BID 10/01/24 10/01/24 hydroxyzine HCl 25 mg tablet 25 - 50 mg PO BID PRN Anxiety 10/01/24 10/01/24 nicotine (polacrilex) 4 mg gum 4 mg PO NEEDED 10/01/24 10/01/24 Previous Rx's ?Medication ?Instructions ?Recorded apixaban 5 mg tablet (Eliquis) 5 mg PO BID #30 tabs 10/02/24 benzonatate 100 mg capsule 100 mg PO TID PRN cough #10 caps 01/14/25 Allergies Allergy/AdvReac Type Severity Reaction Status Date / Time pollen extracts [POLLEN] Allergy Unknown UNKNOWN Verified 01/24/25 15:09 Review of Systems 2 Review of Systems: Yes Unobtainable due to mental status Constitutional: Constitutional: Reports as per HPI Eyes: Eyes: Reports as per HPI ENT: Reports system reviewed and no additional complaints, except as documented and Reports as per HPI Cardiovascular: Cardiovascular: Reports as per HPI and Reports no additional cardiovascular complaints Respiratory: Respiratory: Reports as per HPI and Reports no additional respiratory complaints Gastrointestinal: Gastrointestinal: Reports as per HPI and Reports no additional gastrointestinal complaints Genitourinary: Genitourinary: Reports no additional male genitourinary complaints and Reports as per HPI Psychiatric: Psychiatric: Reports no additional psychiatric complaints and Reports as per HPI Endocrine: Endocrine: Reports no additional endocrine complaints and Reports as per HPI Hematologic/Lymphatic: Hematologic/Lymphatic: Reports no additional hematologic/lymphatic complaints Allergic/Immunologic: Allergic/Immunologic: Reports no additional allergic/immunologic complaints [facility] Past Medical History Attestation statement: The following information was validated with the patient. Source: old records reviewed and nursing notes reviewed Medical History DVT (deep venous thrombosis) Alcohol use disorder, moderate, dependence Social History Social History Household Members: None Housing: Apartment Do you presently have visiting nurse or other home services: No Unable to assess alcohol history related to: Refusing to respond Alcohol intake: current Alcohol intake frequency: 3 or more drinks per day Alcohol type: beer and hard liquor Patient Tobacco Use Status: Former Tobacco user Tobacco use type: Cigarette Advance Directives: No Advance Directives Information Provided: No service: No Physical Exam ED Vital Signs: Vital Signs - 24 hr 01/24/25 15:05 01/24/25 18:37 Temperature 98.2 F Pulse Rate 85 89 Respiratory Rate 14 16 Blood Pressure 122/69 132/79 Pulse Oximetry 95 94 Oxygen Delivery Method Room Air Room Air BMI result Body Mass Index 26.6 Const General: cooperative, no acute distress, alert and awake Nutritional Appearance: well nourished Orientation/consciousness: oriented to person and oriented to place Limitations: no limitations [facility] Head: Yes normal to inspection and Yes atraumatic Ears: hearing grossly normal bilaterally and external ears normal General nose exam: Normal external nose present, no nasal discharge noted and no epistaxis Face and sinus: Yes normal facial exam, No abrasion and No laceration Mouth: Normal oral and palatal mucosa present, lip abnormal, no drooling and no muffled voice Eyes General: appearance normal, both eyes and all related structures Periorbital: periorbital findings normal Eyelids: Yes eyelids normal Conjunctivae: conjunctivae normal Pupils: Equal, round and reactive pupils present EOM: EOMs intact bilaterally Neck Neck: Yes normal visual inspection, Yes full ROM and Yes no lymphadenopathy Chest Chest palpation & inspection: normal inspection of the chest Resp Effort & Inspection: normal respiratory effort and able to speak in complete sentences Auscultation: clear to auscultation bilaterally Cardio Heart sounds: S1 normal heart sound present, S2 normal heart sound present, no gallops, no murmurs and no rubs GI Inspection: Yes normal to inspection Palpation (GI): Soft to palpation, not firm, nontender, no guarding and not rigid Back/Spine/Pelvis Cervical Spine: collar present, No Cervical spine tenderness and No step off deformity Pelvis: no pain with anterior-posterior compression and no pain with lateral compression Neuro General: oriented to person, oriented to place, moves all extremities and CN's II-XI intact bilaterally Cranial nerves: Yes Equal, round and reactive pupils present Cognition (Neuro): abnormal cognition Motor exam (neuro): 5/5 motor strength present throughout Extrem General: Yes normal to inspection, Yes full ROM and Yes capillary refill normal Right upper extremity: normal to inspection, full ROM and normal capillary refill Left upper extremity: normal to inspection, full ROM and normal capillary refill Right lower extremity: normal to inspection, full ROM and normal capillary refill Left lower extremity: normal to inspection, full ROM and normal capillary refill Psych Appearance: grossly normal Mental Status: mental status grossly normal Affect: normal affect Attitude: cooperative Thought process: Normal thought process present Thought content: Normal thought content present Insight: Good insight present (Psych) Medical Decision Making Medical Decision Making MDM Narrative: Patient is a 64 year old assigned male at with a history of alcohol abuse and DVT on eliquis, presenting to the emergency department today with after a fall. Patient's physical exam was unremarkable. Patient's blood work showed an elevated ethanol level but was otherwise unremarkable. Patient's CT head and c- spine showed no acute process. I explained my physical exam findings as well as all test results to the patient. I answered all questions asked by the patient. Patient spent a significant amount of time resting comfortably in the department. Patient was alert, oriented, and steady on his feet. Patient declined to speak with the addiction team. I stressed the importance of the patient taking his medication as directed (either prescribed or as the over the counter packaging recommends). I stressed the importance of the patient following up with his primary care provider. I stressed the importance of the patient returning to the emergency department immediately if his symptoms were to worsen or if he were to develop any dizziness, shortness of breath, difficulty breathing, chest pain, blurry vision, loss of vision, nausea, vomiting, abdominal pain, fever, chills, back pain, or any other complaints. Patient verbalized agreement and understanding with this treatment plan and discharge. Differential Diagnosis Differential Diagnoses: The differential diagnosis associated with the presentation includes Alcohol abuse Alcohol use Fall Admission/Observation Consideration of admission/observation: Escalation of care including admission/observation considered Patient would have been admitted to the hospital had his work up had any findings where hospital admission was appropriate and his clinical presentation warranted hospital admission. Lab Data [facility] Lab Attestation statement: I reviewed the patient's lab results. My interpretation of these results are in the [facility] Rationale portion of this note. 01/24/25 15:41 01/24/25 15:41 Labs: Lab Results 01/24/25 Range/Units 15:41 WBC 3.6 L (4.8-10.8) X10*3/uL RBC 3.95 L (4.60-5.80) X10*6/uL Hgb 12.8 L (14.0-18.0) g/dl Hct 36.3 L (42.0-52.0) % MCV 91.9 (80.0-98.0) fL MCH 32.4 (27.0-33.0) pg MCHC 35.3 (31.0-36.0) g/dl RDW 14.5 (11.0-16.0) % Plt Count 205 (160-400) X10*3/uL MPV 8.2 L (9.4-12.4) fL Immature Gran % (Auto) 1.7 H (0.0-0.4) % Neut % (Auto) 55.6 (45-73) % Lymph % (Auto) 26.2 (20-40) % Catron % (Auto) 15.7 H (2-11) % Eos % (Auto) 0.0 (0-4) % Baso % (Auto) 0.8 (0-2) % Lymph # (Auto) 1.0 L (1.2-4.9) X10*3/uL Catron # (Auto) 0.6 (0.1-1.2) X10*3/uL Eos # (Auto) 0.0 (0.0-0.4) X10*3/uL Baso # (Auto) 0.0 (0.0-0.2) X10*3/uL Abs Immat Gran (auto) 0.06 H (0.00-0.03) X10*3/uL Absolute Neuts (auto) 2.0 (2.0-8.3) x10*3/uL Absolute Nucleated RBC 0.020 H (0.0-0.012) X10*3/uL Nucleated RBC % (auto) 0.6 H (0.0-0.2) /100WBC PT 11.5 (10.9-12.4) SEC INR 1.0 (0.9-1.1) APTT 30.6 (26.0-36.8) SEC Sodium 146 H (135-145) mmol/L Potassium 3.6 (3.3-5.1) mmol/L Chloride 108 (96-108) mmol/L Carbon Dioxide 27 (22-29) mmol/L Anion Gap 15 (12-20) BUN 13 (9-16) mg/dL Creatinine 0.74 (0.5-1.4) mg/dL Estim Creat Clear Calc 102.1 Estimated GFR > 60 Random Glucose 82 (60-115) mg/dL Calcium 8.9 (8.4-10.2) mg/dL Ethyl Alcohol 318 H* mg/dL Independent Interpretation I performed an independent interpretation of an: CT Scan Interpretation: My interpretation is in agreement with the radiologist's impression of these imaging studies. L Report Number: [id number]: Total DLP = 786.00 mGy-cm CLINICAL HISTORY: fall on boldUnderline. llcis CT head without contrast Comparison: CT/SR - CT HEAD/BRAIN WO IV CON - 08/15/24 19:26 EDT Findings: No intra-axial mass, midline shift, hydrocephalus, or acute hemorrhage. Mild diffuse volume loss. There is no sinus or mastoid fluid. The orbits are unremarkable. There is no acute fracture. IMPRESSION: 1. No acute intracranial findings. This document has been electronically signed by: Cristian Lam MD on 01/24/2025 18:06:57 Dictated By: Cristian Lam MD Signed By: Electronically signed by Cristian Lam MD 01/24/25 1807 Report Number: [id number]: Total DLP = 487.00 mGy-cm CLINICAL HISTORY: fall CT cervical spine without contrast Comparison: CT/SR - CT CERVICAL SPINE WO IV CON - 08/15/24 19:26 EDT Findings: Chronic minimal anterolisthesis of C3 on C4. Degenerative disc disease at C5-C6 and C6-C7. No acute fractures or dislocations. No acute findings on limited view of the intracranial contents. Soft tissues of the neck are normal. Lung apices are clear. IMPRESSION: 1. No acute cervical spine findings. This document has been electronically signed by: Cristian Lam MD on 01/24/2025 18:11:08 Dictated By: Cristian Lam MD Signed By: Electronically signed by Cristian Lam MD 01/24/25 1811 Radiology Impression Discussion of test interpretation with radiology: I have reviewed the radiologist's reading. Independent Historian Clinical information obtained from an independent historian. History obtained from or confirmed by: EMS (EMS provided additional history and confirmed the history provided by the patient. ) Discharge Plan Discharge Clinical Impression: Fall, Alcohol use Patient Disposition: Home, Self-Care Instructions: Abuse of Alcohol (DC), Fall Prevention (ED) Additional Instructions: You were seen in the Emergency Department today for treatment of alcohol use disorder.?? If you would like to cut down or stop your alcohol use please consider calling our outpatient Addiction Treatment office:? [facility] ([id number] [id number] [address] [place] [address] ? You have also been given a list of treatment providers in the area that can assist as well.? Follow up with your primary care provider. Return to the emergency department immediately if your symptoms worsen or if you develop any seizures, vomiting blood, black stools, falls, severe headache, hallucinations, numbness, tingling, dizziness, shortness of breath, difficulty breathing, chest pain, blurry vision, loss of vision, nausea, vomiting, abdominal pain, fever, chills, back pain, or any other complaints. Please stay hydrated. Please see the information below about our Patient Portal. If you are not yet enrolled in the [facility] Patient Portal, you will receive an enrollment email invitation following your visit to any [facility] setting. You may also self-enroll in the Patient Portal by visiting our website: [email or web address] The following information is required to access the Patient Portal: - Your [facility] Medical Record Number - Your personal home email address (must match what is in your electronic medical record, Registration staff can assist with this) - Name - Date of Capabilities of the Patient Portal: - Message some providers - View upcoming appointments - Access your health summary, medical history, and visit history - View current conditions and allergies - View procedure and lab results - View your medications, including guidelines, side effects, and precautions - Complete pre-appointment questionnaires requested by your provider - Ready summary reports of your office visits and procedures To access the Patient Portal Mobile Sav[employer], follow these directions: - Search [employer] in the Savi Store or [employer] Store - Download the Savi - Search for [facility] - Enter your login/password Prescriptions: No Action acetaminophen 500 mg tablet 500 mg PO Q6H PRN (Reason: mild pain) naltrexone 50 mg tablet 50 mg PO QAM nicotine (polacrilex) 4 mg gum 4 mg PO NEEDED hydroxyzine HCl 25 mg tablet 25 - 50 mg PO BID PRN (Reason: Anxiety) Eliquis 5 mg tablet 5 mg PO BID Eliquis 5 mg tablet 5 mg PO BID Qty: 30 0RF benzonatate 100 mg capsule 100 mg PO TID PRN (Reason: cough) Qty: 10 0RF Referrals: [facility] Family Medicine [Provider Group] (Call to establish and follow up with a primary care provider. If you already have a primary care provider, please follow up with them.) [facility] Primary Sophie Karimi [Provider Group] (Call to establish and follow up with a primary care provider. If you already have a primary care provider, please follow up with them.) [facility] Primary [facility]ong [Provider Group] (Call to establish and follow up with a primary care provider. If you already have a primary care provider, please follow up with them.) [facility] Primary CareFran [Provider Group] (Call to establish and follow up with a primary care provider. If you already have a primary care provider, please follow up with them.) Print Language: Togolese
[2025-01-24 15:56] LABS: Partial Thromboplastin Time 30.6 SEC (26.0-36.8)
[2025-01-24 16:03] LABS: Anion Gap 15 (12-20); Blood Urea Nitrogen 13 mg/dL (9-16); Calcium 8.9 mg/dL (8.4-10.2); Carbon Dioxide 27 mmol/L (22-29); Chloride 108 mmol/L (96-108); Creatinine Clr Calc Pharmacy 102.1; Estimated Glomerular Filt Rate > 60; Ethanol 318 mg/dL; Glucose Random 82 mg/dL (60-115); Potassium 3.6 mmol/L (3.3-5.1); Sodium 146 mmol/L (135-145)
[2025-01-24 16:27] LABS: Prothrombin Time 11.5 SEC (10.9-12.4)
--- OUTSIDE RECORDS SUMMARY | 2025-01-24 17:50 | XMS_ITS | Encounter Summary ---
Author Organization [employer] Address [address] [place] [address] 7 [place] [address] Care Team Providers Care Crop Scout Name Role Phone Bety Rich COLIN Unavailable Unavailable Jeanne Dickinson Unavailable Winston Philip MD Primary Care Provider + [phone] Encounter Details Date Type Department Care Team (Late st Contact Info) Description 08/27/[address] [phone] Winston Philip MD [address] [place] [address] [phone] Social History Tobacco Use Types Packs/Day Years [...] a current med list be faxed to [phone] at attn Rina documented in this encounter Plan of Treatment Upcoming Encounters Date Type Department Care Team (Late st Contact Info) Description 01/29/2025 12:40 PM EDT Office Visit [facility] [address] [place] [phone] Winston Philip MD [address] [place] [address] documented as of this encounter Visit Diagnoses Not on filedocumented in this encounter Care Teams Crop Scout Relationship Specialty Start Date End Date Winston Philip MD [address] [place] [address] PCP - General Internal Medicine 10/17/23 Bety Rich FNP Family Medicine 09/09/22 Jeanne Dickinson [address] [place] [address] 07/31/23 documented as of this encounter
--- OUTSIDE RECORDS SUMMARY | 2025-01-24 17:51 | XMS_ITS | Encounter Summary ---
Author Organization [employer] Address [address] [facility] [employer] 7t [place] [address] Care Team Providers Care Housecleaner Floor Name Role Phone Bety Rich COLIN Unavailable Unavailable OzAries thompsonna Unavailable Nicolette Donnelly Unavailable [phone] Winston Philip MD Primary Care Provider [phone] Gloria Negrete Unavailable Encounter Details Date Type Department Care Team (Late st Contact Info) Description 04/03/[address] [phone] Winston Philip MD [address] [place] [address] [phone] Social History Tobacco Use Types Packs/Day Years [...] Description 01/29/2025 12:40 PM EDT Office Visit [facility] [address] [place] [phone] Winston Philip MD [address] [place] [address] documented as of this encounter Visit Diagnoses Not on filedocumented in this encounter Care Teams Housecleaner Floor Relationship Specialty Start Date End Date Winston Philip MD [address] [place] [address] PCP - General Internal Medicine 10/17/23 Bety Rich FNP Family Medicine 09/09/22 Jeanne Dickinson [address] [place] [address] 07/31/23 Nicolette Donnelly [address] [place] [address] 08/07/23 07/16/24 Gloria Negrete [address] [place] [address] Community Health Worker 02/16/2405/28 documented as of this encounter
--- OUTSIDE RECORDS SUMMARY | 2025-01-24 17:51 | XMS_ITS | Encounter Summary ---
Author Organization [employer] Address [address] [place] [address] 7 [place] [address] Care Team Providers Care Ginner Helper Name Role Phone Bety Rich COLIN Unavailable Unavailable Jeanne Dickinson Unavailable Winston Philip MD Primary Care Provider + [phone] Encounter Details Date Type Department Care Team (Late st Contact Info) Description 11/07/[address] [phone] Winston Philip MD [address] [place] [address] [phone] Social History Tobacco Use Types Packs/Day Years [...] no longer in service. Advised antoine at [facility] to notify pt of need for appt with pcp. * Telephone Encounter - Jeanette Quiroz LPN - 11/07/2024 3:05 PM EST Hx of PE and DVT. Sydnee at [facility] asking how to long to hold the Eliquis before colonoscopy. Please advise. * Telephone Encounter - Vidhya Caban - 11/07/2024 2:15 PM EST Sydnee is a nurse calling from [facility] looking to speak with one of [...] Description 01/29/2025 12:40 PM EDT Office [facility] [address] [place] [phone] Winston Philip MD [address] [place] [address] documented as of this encounter Visit Diagnoses Not on filedocumented in this encounter Care Teams Ginner Helper Relationship Specialty Start Date End Date Winston Philip MD [address] [place] [address] PCP - General Internal Medicine 10/17/23 Bety Rich FNP Family Medicine 09/09/22 Jeanne Dickinson [address] [place] [address] 07/31/23 documented as of this encounter
--- OUTSIDE RECORDS SUMMARY | 2025-01-24 17:51 | XMS_ITS | Encounter Summary ---
Author Organization [employer] Address [address] [facility] [address] 7t [place] [address] Care Team Providers Care Mobile Application Tester Name Role Phone Bety Rich COLIN Unavailable Unavailable Jeanne Dickinson Unavailable Winston Philip MD Primary Care Provider + [phone] Reason for Visit * Reason Comments ER Follow-up [facility] out reach Encounter Details Date Type Department Care Team (Late st Contact Info) Description 01/20/2025 Patient Outreach [address] [phone] Saida Urbano, EMERGENCY MEDICINE MEDICAL DIRECTOR Follow-up ([facility] out reach) Social History Tobacco Use Types Packs/Day Years [...] as of this encounter Progress Notes * Saida Urbano RN - 01/20/2025 2:24 PM EDT Patient was discharged from [facility] Emergency Room on January 14, 2025 . Called patient []Spoke with Patient/Family []Unable to Reach [x]Left Voicemail Chief Complaint: unsure Follow up needed? : unsure Patient will follow up with []PCP []Specialist *insert specialty/doctor here* []Surgeon []Other: [] N/A Appointment Scheduled: LMTRC Comments: LMTRC, no ER note in Mpages or in chart was only listed in [facility] * Saida Urbano RN - 01/20/2025 2:24 PM EDT LMTR[facility] documented in this encounter Plan of Treatment Upcoming Encounters Date Type Department Care Team (Late st Contact Info) Description 01/29/2025 12:40 PM EDT Office Visit [facility] [address] [place] [phone] Winston Philip MD [address] [place] [address] documented as of this encounter Visit Diagnoses Not on filedocumented in this encounter Care Teams Mobile Application Tester Relationship Specialty Start Date End Date Winston Philip MD [address] [place] [address] PCP - General Internal Medicine 10/17/23 Bety Rich FNP Family Medicine 09/09/22 Jeanne Dickinson [address] [place] [address] 07/31/23 documented as of this encounter
--- OUTSIDE RECORDS SUMMARY | 2025-01-24 17:51 | XMS_ITS | Encounter Summary ---
Author Organization [employer] Address 75 [facility] 7t [place] [address] Care Team Providers Care Meat Stocker Name Role Phone Bety Rich COLIN Unavailable Unavailable Jeanne Dickinson Unavailable Winston Philip MD Primary Care Provider + [phone] Reason for Visit * Reason Onset Date Comments Med Refill 01/21/2025 Encounter Details Date Type Department Care Team (Late st Contact Info) Description 01/21/2025 Refill [facility] [address] [phone] Winston Philip MD [address] [place] [phone] Tobacco dependence syndrome Social History Tobacco Use Types Packs/Day Years [...] encounter Miscellaneous Notes * Telephone Encounter - Winston Philip MD - 01/21/2025 10:50 AM EDT Approve 3 refills * Telephone Encounter - Katina Haas MA - 01/21/2025 8:52 AM EDT PCP: Winston Philip MD Last in-person office visit: Visit date not found Lab Results Component Value Date BUN 01/08/2024 CREATININE 0.87 01/08/2024 HGBA1C 5.6 02/14/2024 K 4.5 01/08/2024 TSH 2.38 01/08/2024 Assessment: [] Protocol passed [] Lab due [] Appointment due Plan: [] Please refill for 30 days [] Lab [] BMP [] TSH [] A1C [] Appointment due: Future Appointments Date Time Provider Department Center 01/29/2025 12:40 PM Winston Philip MD [facility] Comments: documented in this encounter Plan of Treatment Upcoming Encounters Date Type Department Care Team (Late st Contact Info) Description 01/29/2025 12:40 PM EDT Office Visit [facility] [address] [place] [phone] Winston Philip MD [address] [place] [address] documented as of this encounter Visit Diagnoses Diagnosis Tobacco dependence syndrome Tobacco use disorder documented in this encounter Care Teams Meat Stocker Relationship Specialty Start Date End Date Winston Philip MD [address] [place] [address] PCP - General Internal Medicine 10/17/23 Bety Rich FNP Family Medicine 09/09/22 Jeanne Dickinson [address] [place] [address] 07/31/23 documented as of this encounter
--- OUTSIDE RECORDS SUMMARY | 2025-01-24 17:51 | XMS_ITS | Encounter Summary ---
Author Organization [employer] Address [address] [facility] 7t [place] [address] Care Team Providers Care Geomagnetician Name Role Phone Bety Rich Unavailable Unavailable Ozjay Jeanne Unavailable Nicolette Donnelly Unavailable [phone] Winston Philip MD Primary Care Provider + [phone] Gloria Negrete Unavailable Reason for Visit * Reason Comments Med Refill Encounter Details Date Type Department Care Team (Late st Contact Info) Description 02/10/2024 Refill [facility] [address] [place] [address] Bety Rich FNP Onychomycosis Social [...] t he electric, gas, oil or water Cardiovascular Provider [employer] threatened to shut off services in your [...] the authorized approval for the referral to [facility], theydo not have it * Telephone [...] Center 02/14/2024 9:00 AM Winston Philip MD [facility] Comments: documented in this encounter Plan of Treatment Upcoming Encounters Date Type Department Care Team (Late st Contact Info) Description 01/29/2025 12:40 PM EDT Office Visit [address] [phone] Winston Philip MD [address] [place] [address] documented as of this encounter Visit Diagnoses Diagnosis Onychomycosis Dermatophytosis of nail documented in this encounter Care Teams Geomagnetician Relationship Specialty Start Date End Date Winston Philip MD [address] [place] [address] PCP - General Internal Medicine 10/17/23 Bety Rich FNP Family Medicine 09/09/22 Jeanne Dickinson [address] [place] [address] 07/31/23 [place] [address] [place] [address] 08/07/23 07/16/24 Gloria Negrete [address] [place] [address] Community Health Worker 02/16/2405/28 documented as of this encounter
--- OUTSIDE RECORDS SUMMARY | 2025-01-24 17:51 | XMS_ITS | Encounter Summary ---
Author Organization [employer] Address [address] [facility] 7t [place] [address] Care Team Providers Care Courtroom Deputy Name Role Phone Bety Rich COLIN Unavailable Unavailable Ozjay Jeanne Unavailable Nicolette Donnelly Unavailable [phone] Winston Philip MD Primary Care Provider [phone] Gloria Negrete Unavailable Encounter Details Date Type Department Care Team (Late st Contact Info) Description 04/29/2024 Telephone [facility] [address] [phone] Winston Philip MD [address] [place] [address] Social History Tobacco Use Types Packs/Day Years [...] 8:13 AM EDT Patient went to a auto clutch specialist, they told him he should get a CT scan of his chest before his appointment with them on 06/04. He's asking we write the order for one so he can have one done. documented in this encounter Plan of Treatment Upcoming Encounters Date Type Department Care Team (Late st Contact Info) Description 01/29/2025 12:40 PM EDT Office Visit [facility] [address] [place] [phone] Winston Philip MD [address] [place] [address] documented as of this encounter Visit Diagnoses Not on filedocumented in this encounter Care Teams Courtroom Deputy Relationship Specialty Start Date End Date Winston Philip MD [address] [place] [address] PCP - General Internal Medicine 10/17/23 Bety Rich FNP Family Medicine 09/09/22 Jeanne Dickinson [address] [place] [address] 07/31/23 Nicolette Donnelly [address] [place] [address] 08/07/23 07/16/24 Gloria Negrete [address] [place] [address] JOBY NEAL [address] Community Health Worker 02/16/2405/28 documented as of this encounter
--- OUTSIDE RECORDS SUMMARY | 2025-01-24 17:51 | XMS_ITS | Encounter Summary ---
Author Organization [employer] Address [address] [place] [address] 7 [place] [address] Care Team Providers Care Ip Counsel Name Role Phone Bety Rich COLIN Unavailable Unavailable Jeanne Dickinson Unavailable Winston Philip MD Primary Care Provider + [phone] Reason for Visit * Reason Onset Date Comments Med Refill 01/13/2025 Encounter Details Date Type Department Care Team (Late st Contact Info) Description 01/13/2025 Refill [facility] [address] [place] [phone] Winston Philip MD [address] [place], [place] [phone] Social History Tobacco Use Types Packs/Day Years [...] t he electric, gas, oil or water [employer] threatened to shut off services in your [...] Description 01/29/2025 12:40 PM EDT Office Visit [facility] [address] [place] [phone] Winston Philip MD [address] [place] [address] documented as of this encounter Visit Diagnoses Not on filedocumented in this encounter Care Teams Ip Counsel Relationship Specialty Start Date End Date Winston Philip MD [address] [place] [address] PCP - General Internal Medicine 10/17/23 Bety Rich FNP Family Medicine 09/09/22 Jeanne Dickinson [address] [place] [address] 07/31/23 documented as of this encounter
--- OUTSIDE RECORDS SUMMARY | 2025-01-24 17:51 | XMS_ITS | Clinical Summary ---
Author Organization [employer] Address 75 [facility] 7t [place] [address] Care Team Providers Care Business Info Consultant Name Role Phone Layla Bety SHAW Unavailable Unavailable Jeanne Dickinson Unavailable Winston Philip MD Primary Care Provider + [phone] Allergies Active Allergy Reactions Criticality Noted Date Comments Gramineae Pollens 05/05/2020 Naltrexone Hallucinations 10/11/2021 Medications albuterol 108 (90 Base) MCG/ACT inhaler Inhale 2 puffs every 4 (four) hours if needed for wheezing or shortness of breath. Per [facility] discharge Active acamprosate (Campral) 333 MG EC tablet Take 666 mg by mouth 3 times daily. Active GaviLAX 17 GM/SCOOP powder MIX 17 GRAMS WITH WATER AND DRINK ONCE DAILY Active Senna-Time 8.6 MG tablet TAKE 2 TABLETS BY MOUTH EVERY DAY AT BEDTIME NEEDED FOR CONSTIPATION Active traZODone (Desyrel) 50 MG tablet Take 50 mg by mouth at bedtime. 022 Active atorvastatin (Lipitor) 40 MG tablet Take 1 tablet (40 mg) by mouth at bedtime. 30 tablet Active Additional Information Patient not taking.Reported on 02/14/2024 terbinafine (LamISIL) 250 MG tabletIndications :Onychomycosis TAKE 1 TABLET BY MOUTH IN THE MORNING. RETURN TO CLINIC AFTER 4-6 WEEKS FOR LAB WORK AND REFILL 30 tablet 1 Active Additional Information Patient not taking.Reported on 02/14/2024 escitalopram (Lexapro) 10 MG tabletIndications :Mood disorder ([facility]) TAKE 1 TABLET BY MOUTH DAILY 90 tablet 023 Active Additional Information Patient not taking.Reported on 02/14/2024 meloxicam (Mobic) 7.5 MG tabletIndications :Primary localized osteoarthrosis of shoulder region, unspecified laterality TAKE 1 TABLET BY MOUTH EVERY DAY NEEDED FOR PAIN 30 tablet 024 Active cefuroxime (Ceftin) 500 MG tablet Take 500 mg by mouth 2 times daily. 024 Active nicotine (Nicoderm, Step 1) 21 MG/24HR patchIndications: Cigarette nicotine dependence without complication APPLY 1 PATCH onto clean, DRY, intact SKIN ONCE A DAY DIRECTED 90 patch 3 024 Active hydrocortisone 1 % creamIndications: Rash,Eczema, unspecified type Apply topically 2 times daily for 14 days. 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 180 tablet 3 024 2024 Active Multiple Vitamin (multivitamin) capsuleIndication s:Thrombocytopeni a ([facility]) Take 1 capsule by mouth Once per day. 30 capsule 3 025 2024 Active nicotine polacrilex (Nicorette) 4 MG gumIndications:To bacco dependence syndrome CHEW 1 EACH (4 MG) BY MOUTH IF NEEDED FOR SMOKING CESSATION (MAX 24 PIECES/ DAY). 220 each 3 025 Active hydrOXYzine HCl (Atarax) 25 MG tablet TAKE 1 OR 2 TABLETS BY MOUTH TWICE DAILY NEEDED 60 tablet 3 025 Active nicotine polacrilex (Nicorette) 4 MG gumIndications:To bacco dependence syndrome Chew 1 each (4 mg) if needed for smoking cessation (max 24 pieces/ day). 100 each 3 025 Active nicotine polacrilex (Nicorette) 4 MG gumIndications:To bacco dependence syndrome Chew 1 each (4 mg) if needed for smoking cessation (max 24 pieces/ day). 100 each 3 025 2024 Discontinued(R eorder (will not trigger notification to Pharmacy)) hydrOXYzine HCl (Atarax) 25 MG tablet TAKE 1 OR 2 TABLETS BY MOUTH TWICE DAILY NEEDED 60 tablet 3 025 2024 Discontinued(R eorder (will not trigger notification to Pharmacy)) Active Problems Problem Noted Date Diagnosed Date Mixed hyperlipidemia 04/18/2022 Primary localized osteoarthrosis of shoulder reg ion 04/18/2022 Tinnitus 04/18/2022 Nondependent alcohol abuse, episodic drinking be havior 05/05/2020 Tobacco dependence syndrome 05/05/2020 Encounters Date Type Department Care Team Description 01/24/2025 Population Health Risk Score Community [facility] () Department [address] [place] [phone] Provider, Population Health Generic 01/21/[address] [phone] Winston Philip MD Tobacco dependence syndrome 01/20/2025 Patient Outreach [address] [phone] Saida Urbano RN ER Follow-up ([facility] out reach) 01/20/[address] [phone] Saida Urbano RN 01/13/[address] [phone] Winston Philip MD 12/23/[address] [phone] Ellie Cordon Care Management 12/12/[address] [place] [address] Winston Philip MD Tobacco dependence syndrome 12/03/[address] [place] [address] Winston Philip MD Tobacco dependence syndrome 11/08/[address] [phone] Winston Philip MD Thrombocytopenia ([facility]) 11/07/[address] [phone] Winston Philip MD 11/01/2024 Telephone [facility] [address] [place] [address] Boivin, February from Last 3 Months Immunizations Name Administration [...] Description 01/29/2025 12:40 PM EDT Office Visit [address] [phone] Winston Philip MD [address] [place] [address] Health Maintenance Due Date Last Done Comments CT Colonography 1961 Colonoscopy 1961 Colorectal Cancer Screening 1961 FIT DNA/Cologuard 1961 FIT 1961 FOBT 1961 Sigmoidoscopy 1961 Alcohol/Substance Use Screening 1973 Zoster Vaccines (1 of 2) 2011 Pneumococcal Vaccine: 50+ Years (2 of 2 - PCV) 11/29/2017 11/29/2016 Tobacco Screening 03/17/2024 03/17/2023 COVID-19 Vaccine ( season) 2024 01/08/2024, 02/09/2023, 11/11/2021, Additional history exists Influenza Vaccine (#1) 2024 3, 08/24/2022, 07/13/2020, Additional history exists Depression Screening 12/06/2024 12/06/2023, 12/06/19 SDOH Screening 12/06/2024 12/06/2023 Lipid Panel 09/30/2027 09/30/2022, 02/12, 05/06/2020 DTaP/Tdap/Td Vaccines (2 - Td or [...] patient's age to complete this topic Hepatitis A Vaccines Aged Out No long er eligible [...] Acute??with Reflex to??Confirmation (02/14/2024 9:43 AM EDT) Pathologist [facility] Hepatitis A IgM NON-REACT GABRIELLA NON-REACT GABRIELLA [employer] [place] [employer] Comment: For additional information, please refer to http://eYeka.[facility]/faq/QXP927 (This link is being provided for informational/ educational purposes only.) Hepatitis B Surface Ag NON-REACT GABRIELLA NON-REACT GABRIELLA [employer] [place] [employer] Comment: For additional information, please refer to http://STEERads/faq/VGA311 (This link is being provided for informational/ educational purposes only.) Hepatitis B Core Antibody IgM NON-REACT GABRIELLA NON-REACT GABRIELLA [employer] [place] [employer] Comment: For additional information, please refer to http://eYeka.[facility]/faq/LBX930 (This link is being provided for informational/ educational purposes only.) Hepatitis C Antibody NON-REACT GABRIELLA NON-REACT GABRIELLA [employer] [place] [employer] Comment: HCV antibody was non-reactive. There is no laboratory evidence of HCV infection. In most cases, no further action is required. However, if recent HCV exposure is suspected, a test for HCV RNA (test code 29283) is suggested. For additional information please refer to http://STEERads/faq/GJW56p4 (This link is being provided for informational/ educational purposes only.) Blood Venous blood specimen / Unknown 02/14/2024 9:43 AM EDT 02/14/2024 9:44 AM EDT Narrative [facility] - 02/14/2024 11:34 PM EDT FASTING:NO FASTING: NO us Winston Philip MD LAB BLOOD ORDERABLES Final R esult [facility] [address], [place] [address] [facility] [address] [place] [address] * HIV-1/2 Antigen and Antibodies, Fourth Generation, with Reflexes (01/08/2024 11:56 AM EST) [facility] HIV Antigen/Antibody, 4th Generation NON-REAC TIVE NON-REAC TIVE [employer] [facility] [facility] Comment: HIV-1 antigen and HIV-1/HIV-2 antibodies were [...] ?? For additional information please refer to http://education.[facility]/faq/FPN095 (This link is being provided for informational/ educational purposes only.) The performance of this assay has not been clinically validated in patients less than 2 years old. Blood Venous blood specimen / Unknown 01/08/2024 11:56 AM EST 01/08/2024 11:57 AM EST Narrative [facility] - 01/09/2024 11:56 AM EST FASTING:NO FASTING: NO us Winston Philip MD LAB BLOOD ORDERABLES Final R esult [facility] [address], [place] [address] [facility] [address] [place] [address] * (ABNORMAL) LIPID PANEL W REFLEX TO DLDL (09/30/2022 1:49 PM EST) Pathologist [facility] Cholesterol, Total 149 (<200) MG/DL CONVERTED [facility] Triglycerides 235(H) (<150) MG/DL [facility] HDL Cholesterol 51 (>39) MG/DL CONVERTED [facility] LDL Cholesterol Calculated 51 (0-130) MG/DL [facility]VERT[facility] Non-HDL Cholesterol 98 (<160) MG/DL [facility] Chol/HDLC Ratio 2.9 (<5.0) CONV ERTED [facility]GACY LABS 09/30/2022 1:49 PM EST us Historical Provider LAB BLOOD ORDERABLES Aditi l Result CONVERTED LEGACY LABS from Last 3 Months or Most Recently Relevant to Health Maintenance [facility] * Guarantor: Aneudy Andrade Account Type Relation to Patient Date of Phone Billing Address Dental Self Care Teams Business Info Consultant Relationship Specialty Start Date End Date Winston Philip MD [address] [place] [address] PCP - General Internal Medicine 10/17/23 Bety Rich FNP Family Medicine 09/09/22 Jeanne Dickinson [address] [place] [address] 07/31/23
--- OUTSIDE RECORDS SUMMARY | 2025-01-24 17:51 | XMS_ITS | Encounter Summary ---
Author Organization [employer] Address [address] [place] [address] 7t [place] [address] Care Team Providers Care Senior Genetic Counselor Name Role Phone Bety Rich Unavailable Unavailable Jeanne Dickinson Unavailable Silviano Freire Unasszaida Primary Care Provider [place], [place] Unavailable [phone] Winston Philip MD Primary Care Provider [phone] Gloria Negrete Unavailable Reason for Visit * Reason Comments Med Refill Encounter Details Date Type Department Care Team (Late st Contact Info) Description 10/09/[address] [phone] Bety Rich FNP Onychomycosis Social [...] Description 01/29/2025 12:40 PM EDT Office Visit [address] [address] Winston Philip MD [address] [place] [address] documented as of this encounter Visit Diagnoses Diagnosis Onychomycosis Dermatophytosis of nail documented in this encounter Care Teams Senior Genetic Counselor Relationship Specialty Start Date End Date PcpSilviano Unassigned PCP - General Family Medicine 08/01/23 10/16/23 Winston Philip MD [address] [place] [address] PCP - General Internal Medicine 10/17/23 Bety Rich FNP Family Medicine 09/09/22 Jeanne Dickinson [address] [place] [address] 07/31/23 Nicolette Donnelly [address] [place] [address] 08/07/23 07/16/24 Gloria Negrete [address] [place] [address] Community Health Worker 02/16/2405/28 documented as of this encounter
--- OUTSIDE RECORDS SUMMARY | 2025-01-24 17:51 | XMS_ITS | Encounter Summary ---
Author Organization [employer] Address [address] [facility] 7t [place] [address] Care Team Providers Care Architectural Design Professor Name Role Phone Layla Bety SHAW Unavailable Unavailable Jeanne Dickinson Unavailable Winston Philip MD Primary Care Provider + [phone] Encounter Details Date Type Department Care Team (Late st Contact Info) Description 11/01/2024 Telephone [facility] [address] [place] [address] February Social History Tobacco Use Types Packs/Day [...] Office Visit [facility] [address] [place] [phone] Winston Philip MD [address] [place] [address] documented as of this encounter Visit Diagnoses Not on filedocumented in this encounter Care Teams Architectural Design Professor Relationship Specialty Start Date End Date Winston Philip MD [address] [place] [address] PCP - General Internal Medicine 10/17/23 Bety Rich FNP Family Medicine 09/09/22 Jeanne Dickinson [address] [place] [address] 07/31/23 documented as of this encounter
--- OUTSIDE RECORDS SUMMARY | 2025-01-24 17:51 | XMS_ITS | Encounter Summary ---
Author Organization [employer] Address [address] [facility] [address] 7t [place] [address] Care Team Providers Care Small Engine Specialist Name Role Phone Layla Bety SHAW Unavailable Unavailable Jeanne Dickinson Unavailable Winston Philip MD Primary Care Provider + [phone] Encounter Details Date Type Department Care Team (Late st Contact Info) Description 01/20/[address] [place] [phone] Saida Urbano, YOSELIN Social History Tobacco Use Types Packs/Day Years [...] 12:40 PM EDT Office Visit [facility] [address] [place] [phone] Winston Philip MD [address] [place] [address] documented as of this encounter Visit Diagnoses Not on filedocumented in this encounter Care Teams Small Engine Specialist Relationship Specialty Start Date End Date Winston Philip MD [address] [place] [address] PCP - General Internal Medicine 10/17/23 Bety Rich FNP Family Medicine 09/09/22 Jeanne Dickinson [address] [place] [address] 07/31/23 documented as of this encounter
--- OUTSIDE RECORDS SUMMARY | 2025-01-24 17:51 | XMS_ITS | Encounter Summary ---
Author Organization [employer] Address [address] [facility] 7t [place] [address] Care Team Providers Care Industrial Maintenance Repairer Helper Name Role Phone RichBety power COLIN Unavailable Unavailable Jeanne Dickinson Unavailable Winston Philip MD Primary Care Provider + [phone] Encounter Details Date Type Department Care Team (Late st Contact Info) Description 01/24/2025 Population Health Risk Score [facility] Care [facility] ([facility]) Department 75 [facility] 7 [place] [address] Provider, Population Health Generic Social History Tobacco Use Types Packs/Day Years [...] Visit [facility] [address] [place] [phone] Winston Philip MD [address] [place] [address] documented as of this encounter Visit Diagnoses Not on filedocumented in this encounter Care Teams Industrial Maintenance Repairer Helper Relationship Specialty Start Date End Date Winston Philip MD [address] [place] [address] PCP - General Internal Medicine 10/17/23 Bety Rich FNP Family Medicine 09/09/22 Jeanne Dickinson [address] [place] [address] 07/31/23 documented as of this encounter
--- OUTSIDE RECORDS SUMMARY | 2025-01-24 17:51 | XMS_ITS | Encounter Summary ---
Author Organization [employer] Address 75 [facility] 7t [place] [address] Care Team Providers Care Label Machine Operator Name Role Phone Bety Rich COLIN Unavailable Unavailable OzAries thompsonna Unavailable Nicolette Donnelly Unavailable [phone] Winston Philip MD Primary Care Provider [phone] Gloria Negrete Unavailable Encounter Details Date Type Department Care Team (Late st Contact Info) Description 04/03/[address] [phone] Winston Philip MD [address] [place] [phone] Social History Tobacco Use Types Packs/Day Years Used Date Smoking Tobacco: Former Cigarettes Smokeless Tobacco: Never Housing Stability Answer Date Recorded What is your housing situation today? I have mimi archel 12/06/[address] you li [...] Description 01/29/2025 12:40 PM EDT Office Visit [address] [phone] Winston Philip MD [address] [place] [address] documented as of this encounter Visit Diagnoses Not on filedocumented in this encounter Care Teams Label Machine Operator Relationship Specialty Start Date End Date Winston Philip MD [address] [place] [address] PCP - General Internal Medicine 10/17/23 Bety Rich FNP Family Medicine 09/09/22 Jeanne Dickinson [address] [place] [address] 07/31/[address] [address] 08/07/23 07/16/24 Gloria Negrete [address] [place] [address] Community Health Worker 02/16/2405/28 documented as of this encounter
--- OUTSIDE RECORDS SUMMARY | 2025-01-24 17:52 | XMS_ITS | Encounter Summary ---
Author Organization [employer] Address 75 [facility] 7t [place] [address] Care Team Providers Care Flatbed Truck Driver Name Role Phone Bety Rich COLIN Unavailable Unavailable OzAries thompsonna Unavailable Nicolette Donnelly Unavailable [phone] Winston Philip MD Primary Care Provider + [phone] Encounter Details Date Type Department Care Team (Late st Contact Info) Description 06/03/[address] [phone] Winston Philip MD [address] [place] [address] Social History Tobacco Use Types Packs/Day [...] the past 12 months, has t he [employer] gas, oil or water company threatened to [...] - 06/03/2024 11:44 AM EDT Faxed in [facility] pcp forms several months ago, she is looking for them to be filled out and faxed back.[phone] documented in this encounter Plan of Treatment Upcoming Encounters Date Type Department Care Team (Late st Contact Info) Description 01/29/2025 12:40 PM EDT Office Visit [facility] [address] [place] [phone] Winston Philip MD [address] [place] [address] documented as of this encounter Visit Diagnoses Not on filedocumented in this encounter Care Teams Flatbed Truck Driver Relationship Specialty Start Date End Date Winston Philip MD [address] [place] [address] PCP - General Internal Medicine 10/17/23 Bety Rich FNP Family Medicine 09/09/22 Jeanne Dickinson [address] [place] [address] 07/31/[address] [address] 08/07/23 07/16/24 documented as of this encounter
[2025-01-24 18:37] VITALS: BP 132/79; PULSE 89; RESP 16; TEMP 36.8; O2SAT 94
== END 2025-01-25 00:33 | disposition home or self-care (01) ==
PROVIDERS: Emergency Provider Emergency Medicine
DX: S09.90XA Unspecified injury of head, initial encounter (principal); M54.2 Cervicalgia; R51.9 Headache, unspecified; F10.10 Alcohol abuse, uncomplicated; Y90.8 Blood alcohol level of 240 mg/100 ml or more; W19.XXXA Unspecified fall, initial encounter; Y93.9 Activity, unspecified; Y92.9 Unspecified place or not applicable; Y99.8 Other external cause status; Z51.81 Encounter for therapeutic drug level monitoring; Z79.899 Other long term (current) drug therapy
CPT/HCPCS: 36415; 70450; 72125; 80048; 80307; 85025; 85610; 85730; 99283; 99284

== ENCOUNTER → 2025-01-24 15:17 | Outpatient (BNV) | payer MEDICAID, SELFPAY | PROVIDERS: Emergency Provider Emergency Medicine; Visit Provider Radiology Diagnostic Radiology | DX: M54.2 Cervicalgia (principal); R51.9 Headache, unspecified | CPT/HCPCS: 70450; 72125 ==

== ENCOUNTER 2025-02-14 06:42 | Emergency (ER) | payer MEDICAID, SELFPAY ==
[2025-02-14 06:51] VITALS: PULSE 94; O2SAT 95
[2025-02-14 06:54] VITALS: BP 145/90; PULSE 91; RESP 16; TEMP 36.3; O2SAT 94; BMI 29.7
--- NOTE | 2025-02-14 07:35 | PC.NURSE ---
BELONGINGS ON SHELF 2 IN CLOSET
--- NOTE | 2025-02-14 08:01 | ED.GENADULT ---
HPI - General Adult General Chief complaint: ETOH/Substance Use Stated complaint: ETOH Time Seen by Provider: 02/14/25 08:01 History of Present Illness ED Provider: Eli ABBOTT narrative: The patient is a 64-year-old male with a history of significant alcoholism. He says that he drinks 3 or 4 pt of vodka a day. He says he has been able to eat much over the last few days. He says this morning he decided that he needed to go to detox. His last alcohol was at 04:30 this morning. He wants to go to [facility] detox. He called an ambulance to come to the hospital. He was at his boarding house room when he called the ambulance. Related Data Home Medications ?Medication ?Instructions ?Recorded ?Confirmed acetaminophen 500 mg tablet 500 mg PO Q6H PRN mild pain 08/23/24 10/01/24 naltrexone 50 mg tablet 50 mg PO QAM 08/23/24 10/01/24 apixaban 5 mg tablet (Eliquis) 5 mg PO BID 10/01/24 10/01/24 hydroxyzine HCl 25 mg tablet 25 - 50 mg PO BID PRN Anxiety 10/01/24 10/01/24 nicotine (polacrilex) 4 mg gum 4 mg PO NEEDED 10/01/24 10/01/24 Previous Rx's ?Medication ?Instructions ?Recorded apixaban 5 mg tablet (Eliquis) 5 mg PO BID #30 tabs 10/02/24 benzonatate 100 mg capsule 100 mg PO TID PRN cough #10 caps 01/14/25 Allergies Allergy/AdvReac Type Severity Reaction Status Date / Time pollen extracts [POLLEN] Allergy Unknown UNKNOWN Verified 02/14/25 06:57 Review of Systems Review of Systems: Yes all other systems are reviewed and are negative FOR[facility]LY [facility], [facility] Past Medical History Medical History DVT (deep venous thrombosis) Alcohol use disorder, moderate, dependence Social History Social History Household Members: None Housing: Apartment Do you presently have visiting nurse or other home services: No Unable to assess alcohol history related to: Refusing to respond Alcohol intake: current Alcohol intake frequency: 3 or more drinks per day Alcohol type: hard liquor Patient Tobacco Use Status: Former Tobacco user Tobacco use type: Cigarette Smoked in Last 30 Days: No Use of substances other than those prescribed or required for medical reasons: No Advance Directives: No Advance Directives Information Provided: Yes Do you have a plan to hurt others: No Plan service: No Physical Exam ED Vital Signs: Vital Signs - 24 hr 02/14/25 13:27 Temperature 98 F Pulse Rate 89 Respiratory Rate 19 Blood Pressure 149/88 H Pulse Oximetry 98 Oxygen Delivery Method Room Air BMI result Body Mass Index 29.7 Const Other: The patient is a 64-year-old male who was sleeping. Awoke with tactile stimuli. Has slight slurring of speech consistent with alcohol intoxication. He does not seem in distress otherwise. HENMT Other: Face is symmetrical. Mucous membranes moist. The patient wears hearing aids. Eyes General: appearance normal, both eyes and all related structures Neck Neck: Yes no JVD Resp Effort & Inspection: normal respiratory effort Auscultation: clear to auscultation bilaterally Cardio Rate: regular rate Rhythm: regular rhythm Heart sounds: S1 normal heart sound present and S2 normal heart sound present GI Other: Abdomen is soft and nontender Skin Other: skin is dry and unremarkable Neuro Other: the patient was asleep but awoke to tactile stimuli. He seems hard of hearing but his cranial nerves are otherwise intact. He moves his extremities symmetrically with normal strength and coordination. Extrem Other: No peripheral edema Medications Administered Discontinued Medications Generic Name Dose Route Start Last Admin Trade Name Niallq PRN Reason Stop Dose Admin Acetaminophen 650 mg 02/14/25 11:28 02/14/25 11:56 Acetaminophen 325 Mg Tablet PO 02/14/25 11:29 650 mg ONCE ONE Administration Medical Decision Making Medical Decision Making [facility] Narrative: The patient is a 64-year-old male with history of alcoholism who presents requesting detox. He was intoxicated in the emergency room with an ethanol level of 333. Other labs are unremarkable. I think he is intoxicated but not otherwise medically compromised. I consulted the recovery team. They were able to make arrangements for the patient to be admitted the [facility]. A taxi was arranged to get him there. Lab Data 02/14/25 09:44 02/14/25 09:44 Labs: Lab Results 02/14/25 Range/Units 09:44 WBC 5.1 (4.8-10.8) X10*3/uL RBC 4.84 D (4.60-5.80) X10*6/uL Hgb 15.7 D (14.0-18.0) g/dl Hct 45.6 D (42.0-52.0) % MCV 94.2 (80.0-98.0) fL MCH 32.4 (27.0-33.0) pg MCHC 34.4 (31.0-36.0) g/dl RDW 14.0 (11.0-16.0) % Plt Count 281 D (160-400) X10*3/uL MPV 8.0 L (9.4-12.4) fL Immature Gran % (Auto) 0.8 H (0.0-0.4) % Neut % (Auto) 66.0 (45-73) % Lymph % (Auto) 22.7 (20-40) % Weston % (Auto) 7.3 (2-11) % Eos % (Auto) 2.4 (0-4) % Baso % (Auto) 0.8 (0-2) % Lymph # (Auto) 1.2 (1.2-4.9) X10*3/uL Weston # (Auto) 0.4 (0.1-1.2) X10*3/uL Eos # (Auto) 0.1 (0.0-0.4) X10*3/uL Baso # (Auto) 0.0 (0.0-0.2) X10*3/uL Abs Immat Gran (auto) 0.04 H (0.00-0.03) X10*3/uL Absolute Neuts (auto) 3.4 (2.0-8.3) x10*3/uL Absolute Nucleated RBC 0.000 (0.0-0.012) X10*3/uL Nucleated RBC % (auto) 0.0 (0.0-0.2) /100WBC PT 11.1 (10.9-12.4) SEC INR 1.0 (0.9-1.1) Sodium 145 (135-145) mmol/L Potassium 4.1 (3.3-5.1) mmol/L Chloride 108 (96-108) mmol/L Carbon Dioxide 25 (22-29) mmol/L Anion Gap 16 (12-20) BUN 21 H (9-16) mg/dL Creatinine 0.82 (0.5-1.4) mg/dL Estim Creat Clear Calc 96.5 Estimated GFR > 60 Random Glucose 75 (60-115) mg/dL Calcium 8.8 (8.4-10.2) mg/dL Magnesium 2.0 (1.6-2.6) mg/dL Total Bilirubin 0.4 (0.0-1.0) mg/dL Direct Bilirubin 0.1 (0.0-0.5) mg/dL AST 33 (5-37) U/L ALT 24 (0-40) U/L Alkaline Phosphatase 53 (39-117) U/L Total Protein 6.8 (6.5-8.0) g/dL Albumin 4.5 (3.5-5.0) g/dL Ethyl Alcohol 333 H* mg/dL Influenza Type A (PCR) NEGATIVE (Negative) Influenza Type B (PCR) NEGATIVE (Negative) RSV RNA Qual (PCR) NEGATIVE (Negative) SARS-CoV-2 RNA (RT-PCR) NEGATIVE (Negative) Discharge Plan Discharge Clinical Impression: Alcohol intoxication, Alcoholism Patient Disposition: Xfer Inpatient Rehab Fac Transfer Details: [facility] detox Additional Instructions: A taxi has been arranged for you to go directly to the [facility] in [place] for help with your alcoholism. Please go directly to [facility] for additional care. Please also plan on following up with your regular doctor. Return to the emergency room if significantly worse. Prescriptions: No Action acetaminophen 500 mg tablet 500 mg PO Q6H PRN (Reason: mild pain) naltrexone 50 mg tablet 50 mg PO QAM nicotine (polacrilex) 4 mg gum 4 mg PO NEEDED hydroxyzine HCl 25 mg tablet 25 - 50 mg PO BID PRN (Reason: Anxiety) Eliquis 5 mg tablet 5 mg PO BID Eliquis 5 mg tablet 5 mg PO BID Qty: 30 0RF benzonatate 100 mg capsule 100 mg PO TID PRN (Reason: cough) Qty: 10 0RF Referrals: [facility] [Outside] Edd Montero PA [Primary Care Provider] - Discharge Date/Time: 02/14/25 13:39 Print Language: Bahraini
[2025-02-14 09:50] LABS: MANUAL DIFF FLAG NO
[2025-02-14 09:54] LABS: Basophils Percent Auto 0.8 % (0-2); Eosinophils Absolute Auto 0.1 X10*3/uL (0.0-0.4); Eosinophils Percent Auto 2.4 % (0-4); Hematocrit 45.6 % (42.0-52.0); Hemoglobin 15.7 g/dl (14.0-18.0); Imm Gran Abs Auto 0.04 X10*3/uL (0.00-0.03); Imm Gran Pct Auto 0.8 % (0.0-0.4); Lymphocytes Absolute Auto 1.2 X10*3/uL (1.2-4.9); Lymphocytes Percent Auto 22.7 % (20-40); Mean Corpuscular HGB Conc 34.4 g/dl (31.0-36.0); Mean Corpuscular Hemoglobin 32.4 pg (27.0-33.0); Mean Corpuscular Volume 94.2 fL (80.0-98.0); Monocytes Absolute Auto 0.4 X10*3/uL (0.1-1.2); Monocytes Percent Auto 7.3 % (2-11); Neutrophils Absolute Auto 3.4 x10*3/uL (2.0-8.3); Platelet Count 281 X10*3/uL (160-400); Red Blood Count 4.84 X10*6/uL (4.60-5.80); White Blood Count 5.1 X10*3/uL (4.8-10.8)
[2025-02-14 09:59] LABS: Prothrombin Time 11.1 SEC (10.9-12.4)
[2025-02-14 10:19] LABS: Alanine Aminotransferase 24 U/L (0-40); Albumin Level 4.5 g/dL (3.5-5.0); Alkaline Phosphatase 53 U/L (39-117); Anion Gap 16 (12-20); Aspartate Amino Transferase 33 U/L (5-37); Bilirubin Direct 0.1 mg/dL (0.0-0.5); Bilirubin Total 0.4 mg/dL (0.0-1.0); Blood Urea Nitrogen 21 mg/dL (9-16); Calcium 8.8 mg/dL (8.4-10.2); Carbon Dioxide 25 mmol/L (22-29); Chloride 108 mmol/L (96-108); Creatinine Clr Calc Pharmacy 96.5; Estimated Glomerular Filt Rate > 60; Ethanol 333 mg/dL; Glucose Random 75 mg/dL (60-115); Potassium 4.1 mmol/L (3.3-5.1); Sodium 145 mmol/L (135-145); Total Protein 6.8 g/dL (6.5-8.0)
[2025-02-14 10:32] LABS: Influenza A PCR NEGATIVE (Negative); Influenza B PCR NEGATIVE (Negative); Resp Syncy Virus RNA Qual PCR NEGATIVE (Negative); SARS COV2 PCR INHOUSE NEGATIVE (Negative)
--- OUTSIDE RECORDS SUMMARY | 2025-02-14 10:37 | XMS_ITS | Encounter Summary ---
Author Organization [employer] Address [address] [place] [address] 7 [place] [address] Care Team Providers Care Balance Assembler Name Role Phone Bety Rich COLIN Unavailable Unavailable Jeanne Dickinson Unavailable Winston Philip MD Primary Care Provider + [phone] Encounter Details Date Type Department Care Team (Late st Contact Info) Description 08/27/[address] [phone] Winston Philip MD [address] [place] [address] [phone] Social History Tobacco Use Types Packs/Day Years [...] Caban - 08/27/2024 8:07 AM EDT Rina juany nurse calling ton confirm patients allergies and is requesting a current med list be faxed to [phone] at attn Rina documented in this encounter Plan of Treatment Not on file documented as of this encounter Visit Diagnoses Not on filedocumented in this encounter Care Teams Balance Assembler Relationship Specialty Start Date End Date Winston Philip MD [address] [place] [address] PCP - General Internal Medicine 10/17/23 Bety Rich FNP Family Medicine 09/09/22 Jeanne Dickinson [address] [place] [address] 07/31/23 documented as of this encounter
--- OUTSIDE RECORDS SUMMARY | 2025-02-14 10:37 | XMS_ITS | Encounter Summary ---
Author Organization [employer] Address 75 [facility] 7t [place] [address] Care Team Providers Care Data Collector Name Role Phone Layla Bety SHAW Unavailable Unavailable Jeanne Dickinson Unavailable Winston Philip MD Primary Care Provider + [phone] Encounter Details Date Type Department Care Team (Late st Contact Info) Description 11/01/2024 Telephone [facility] [address] [place] [address] February Social History Tobacco Use Types Packs/Day [...] as of this encounter Plan of Treatment Not on file documented as of this encounter Visit Diagnoses Not on filedocumented in this encounter Care Teams Data Collector Relationship Specialty Start Date End Date Winston Philip MD [address] [place] [address] PCP - General Internal Medicine 10/17/23 Bety Rihc FNP Family Medicine 09/09/22 Jeanne Dickinson [address] [place] [address] 07/31/23 documented as of this encounter
--- OUTSIDE RECORDS SUMMARY | 2025-02-14 10:37 | XMS_ITS | Encounter Summary ---
Author Organization [employer] Address [address] [place] [address] 7 [place] [address] Care Team Providers Care Engineering Officer Name Role Phone Bety Rich Unavailable Unavailable Jeanne Dickinson Unavailable Silviano Freire Unasszaida Primary Care Provider [place], [place] Unavailable [phone] Winston Philip MD Primary Care Provider [phone] Gloria Negrete Unavailable Encounter Details Date Type Department Care Team (Late st Contact Info) Description 08/31/2023 Abstract [facility] [address] [place] [phone] Silviano Freire Unasszaida Social History Tobacco Use Types Packs/Day Years [...] on filedocumented in this encounter Care Teams Engineering Officer Relationship Specialty Start Date End Date Silviano Freire Unasszaida PCP - General Family Medicine 08/01/23 10/16/23 Winston Philip MD [address] [place] [address] PCP - General Internal Medicine 10/17/23 Bety Rich FNP Family Medicine 09/09/22 Jeanne Dickinson [address] [place] [address] 07/31/23 Nicolette Donnelly [address] [place] [address] 08/07/23 07/16/24 Gloria Negrete [address] [place] [address] Community Health Worker 02/16/2405/28 documented as of this encounter
--- OUTSIDE RECORDS SUMMARY | 2025-02-14 10:37 | XMS_ITS | Clinical Summary ---
Author Organization [employer] Address [address] [facility] 7t [place] [address] Care Team Providers Care Racing Car Driver Name Role Phone Layla Bety SHAW Unavailable Unavailable Jeanne Dickinson Unavailable Winston Philip MD Primary Care Provider + [phone] Allergies Active Allergy Reactions Criticality Noted Date Comments Gramineae Pollens 05/05/2020 Naltrexone Hallucinations 10/11/2021 Medications albuterol 108 (90 Base) MCG/ACT inhaler Inhale 2 puffs every 4 (four) hours if needed for wheezing or shortness of breath. Per [facility] discharge Active acamprosate [...] escitalopram (Lexapro) 10 MG tabletIndications :Mood disorder (CMS/HCC) TAKE 1 TABLET BY MOUTH [...] thrombosis (DVT) of lower extremity, unspecified laterality (CMS/LTAC, [facility]ATED WITHIN [facility]),History of blood clots Take 1 tablet (5 mg) by mouth 2 times daily. 180 tablet 3 024 2024 Active Multiple Vitamin (multivitamin) capsuleIndication s:Thrombocytopeni a (CMS/HCC) Take 1 capsule by mouth Once per day. 30 capsule 3 025 2024 Active hydrOXYzine HCl (Atarax) 25 MG tablet [...] PIECES/ DAY). 220 each 3 025 Active nicotine polacrilex (Nicorette) 4 MG gumIndications:To bacco dependence syndrome CHEW 1 EACH (4 MG) BY MOUTH IF NEEDED FOR SMOKING CESSATION (MAX 24 PIECES/ DAY). 220 each 3 025 2024 Discontinued(R eorder (will not trigger notification to Pharmacy)) nicotine polacrilex (Nicorette) 4 MG gumIndications:To bacco [...] Encounters Date Type Department Care Team Description 02/11/2025 9:00 AM EDT Community Care Management [facility] [address] [address] Mery Coley 02/10/2025 Refill [facility] [address] [address] Winston Philip MD Tobacco dependence syndrome 02/06/2025 10:30 AM EDT Community Care Management [facility] 119 [facility] [address] [place] [address] Mery Coley 02/06/2025 Telephone [facility] [address] [place] [address] Winston Philip MD 01/24/2025 Population Health Risk Score [facility] Department [address] [place] [phone] Provider, Population Health Generic 01/21/2025 Refill [facility] 119 [facility] [address] [place] [address] Winston Philip MD Tobacco dependence syndrome 01/20/2025 Patient Outreach [facility] 119 [facility] 200 [place] [address] Saida Urbano, MARINE DRAFTER Follow-up ([facility] out reach) 01/20/[address] [place] [address] Saida Urbano RN 01/13/[address] [address] Winston Philip MD 12/23/[address] [address] Ellie Cordon Care Management 12/12/[address] [place] [address] Winston Philip MD Tobacco dependence syndrome 12/03/[address] [place] [address] Winston Philip MD Tobacco dependence syndrome from Last 3 Months Immunizations Name Administration [...] 09/01/2022 2:15 PM EDT Plan of Treatment Health Maintenance Due Date Last Done Comments [...] EDT) Hepatitis A IgM NON-REACT GABRIELLA NON-REACT GABRIELLA [employer] Comment: For additional information, please refer to http://Widgetlabs.Aktino/faq/FHY381 (This link is being provided for informational/ educational purposes only.) Hepatitis B Surface Ag NON-REACT GABRIELLA NON-REACT GABRIELLA [employer] Comment: For additional information, please refer to http://Lufthouse/faq/MPT120 (This link is being provided for informational/ educational purposes only.) Hepatitis B Core Antibody IgM NON-REACT GABRIELLA NON-REACT GABRIELLA [employer] Comment: For additional information, please refer to http://Lufthouse/faq/NHG235 (This link is being provided for informational/ educational purposes only.) Hepatitis C Antibody NON-REACT GABRIELLA NON-REACT GABRIELLA [employer] Comment: HCV antibody was non-reactive. There is no laboratory evidence of HCV infection. In most cases, no further action is required. However, if recent HCV exposure is suspected, a test for HCV RNA (test code 66429) is suggested. For additional information please refer to http://Lufthouse/faq/QLA24j5 (This link is being provided for informational/ educational purposes only.) Blood Venous blood specimen / Unknown 02/14/2024 9:43 AM EDT 02/14/2024 9:44 AM EDT Narrative [facility] - 02/14/2024 11:34 PM EDT FASTING:NO FASTING: NO us Winston Philip MD LAB BLOOD ORDERABLES Final R esult [facility] [address], [place] [address] [employer] 200 [place] [address] * HIV-1/2 Antigen and Antibodies, Fourth Generation, with Reflexes (01/08/2024 11:56 AM EST) [facility] HIV Antigen/Antibody, 4th Generation NON-REAC TIVE NON-REAC TIVE [employer] Comment: HIV-1 antigen and HIV-1/HIV-2 antibodies were [...] ?? For additional information please refer to http://education.Aktino/faq/VUY532 (This link is being provided for informational/ educational purposes only.) The performance of this assay has not been clinically validated in patients less than 2 years old. Blood Venous blood specimen / Unknown 01/08/2024 11:56 AM EST 01/08/2024 11:57 AM EST Narrative [facility] - 01/09/2024 11:56 AM EST FASTING:NO FASTING: NO us Winston Philip MD LAB BLOOD ORDERABLES Final R esult [facility] [address], [place] [address] [employer] [facility] 200 [place] [address] * (ABNORMAL) LIPID PANEL W REFLEX TO DLDL (09/30/2022 1:49 PM EST) [facility] Cholesterol, Total 149 (<200) MG/DL CONVERTED LEGACY LABS Triglycerides 235(H) (<150) MG/DL CONVERTED [facility] HDL Cholesterol 51 (>39) MG/DL CONVERTED [facility] LDL Cholesterol Calculated 51 (0-130) MG/DL CONVERTED [facility] Non-HDL Cholesterol 98 (<160) MG/DL CONVERTED [facility] Chol/HDLC Ratio 2.9 (<5.0) CONV ERTED LEGACY LABS 09/30/2022 1:49 PM EST us Historical Provider LAB BLOOD ORDERABLES [employer] Result CONVERTED LEGACY LABS from Last 3 Months or Most Recently Relevant to Health Maintenance Insurance [employer] C3 * Guarantor: Aneudy Andrade Account Type Relation to Patient Date of Phone Billing Address Dental Self Care Teams Racing Car Driver Relationship Specialty Start Date End Date Winston Philip MD [address] [place] [address] PCP - General Internal Medicine 10/17/23 Bety Rich FNP Family Medicine 09/09/22 Jeanen Dickinson [address] [place] [address] 07/31/23
--- OUTSIDE RECORDS SUMMARY | 2025-02-14 10:37 | XMS_ITS | Encounter Summary ---
Author Organization [employer] Address [address] [place] [address] 7t [place] [address] Care Team Providers Care Ems Educator Name Role Phone Bety Rich Unavailable Unavailable Jeanne Dickinson Unavailable PcpSilviano Unasszaida Primary Care Provider [place], [place] Unavailable [phone] Winston Philip MD Primary Care Provider [phone] Gloria Negrete Unavailable Reason for Visit * Reason Comments Med Refill Encounter Details Date Type Department Care Team (Late st Contact Info) Description 10/09/[address] [phone] Bety Rich FNP Onychomycosis Social History Tobacco [...] nail documented in this encounter Care Teams Ems Educator Relationship Specialty Start Date End Date Silviano Freire Unassigned PCP - General Family Medicine 08/01/23 10/16/23 Winston Philip MD [address] [place] [address] PCP - General Internal Medicine 10/17/23 Bety Rich FNP Family Medicine 09/09/22 Jeanne Dickinson [address] [place] [address] 07/31/[address] [address] 08/07/23 07/16/24 Gloria Negrete [address] [place] [address] Community Health Worker 02/16/2405/28 documented as of this encounter
--- OUTSIDE RECORDS SUMMARY | 2025-02-14 10:38 | XMS_ITS | Encounter Summary ---
Author Organization [employer] Address 75 [facility] 7t [place] [address] Care Team Providers Care Chemist Physical Name Role Phone LaylaAmandaBetyrobert SHAW Unavailable Unavailable Jeanne Dickinson Unavailable Winston Philip MD Primary Care Provider + [phone] Encounter Details Date Type Department Care Team (Late st Contact Info) Description 02/11/2025 9:00 AM EDT Community Care Management [facility] [address] [phone] Mery Coley 102 [place] [address] Social History Tobacco Use Types Packs/Day Years [...] t he electric, gas, oil or water [employer] threatened to shut off services in your [...] as of this encounter Progress Notes * Mery Coley - 02/11/2025 9:00 AM EDT LM to let him know that his PT1 was approved to [facility] documented in this encounter Plan of Treatment Not on file documented as of this encounter Visit Diagnoses Not on filedocumented in this encounter Care Teams Chemist Physical Relationship Specialty Start Date End Date Winston Philip MD [address] [place] [address] PCP - General Internal Medicine 10/17/23 Bety Rich FNP Family Medicine 09/09/22 Jeanne Dickinson [address] [place] [address] 07/31/23 documented as of this encounter
--- OUTSIDE RECORDS SUMMARY | 2025-02-14 10:38 | XMS_ITS | Encounter Summary ---
Author Organization [employer] Address [address] [place] [address] 7 [place] [address] Care Team Providers Care Metal Punch Press Operator Name Role Phone Bety Rich COLIN Unavailable Unavailable Jeanne Dickinson Unavailable Winston Philip MD Primary Care Provider + [phone] Encounter Details Date Type Department Care Team (Late st Contact Info) Description 02/06/[address] [address] Winston Philip MD [address] [place] [address] [phone] Social History Tobacco Use Types Packs/Day Years [...] encounter Miscellaneous Notes * Telephone Encounter - Vidhya Caban - 02/06/2025 9:43 AM EDT Santi Andrade is requesting a PT-1 for a medical appointment. Patient's [facility] ID: [id number] Complete Pickup Address (home): [address] [place] [address] Alternate pickup address (optional): Patient Emergency Contact Name and Number (optional): Drop off address (list all locations, including name of facility and care being received): [address] How many visits per month needed: 1 Yes or No: Please Check Boxes Below If YES []Member requires door through door or room to room service (For example, the member cannot ambulate or wait independently outside their home/facility for transportation). []Member will be transported in a manual wheelchair []Member will be transported in an electric wheelchair []Member has a service animal []Member has an escort []Member is bariatric []Member carries self-administered oxygen []Transportation request is for [facility] Patient has an appt on 02/27 documented in this encounter Plan of Treatment Not on file documented as of this encounter Visit Diagnoses Not on filedocumented in this encounter Care Teams Metal Punch Press Operator Relationship Specialty Start Date End Date Winston Philip MD [address] [place] [address] PCP - General Internal Medicine 10/17/23 Bety Rich FNP Family Medicine 09/09/22 Jeanne Dickinson [address] [place] [address] 07/31/23 documented as of this encounter
--- OUTSIDE RECORDS SUMMARY | 2025-02-14 10:38 | XMS_ITS | Encounter Summary ---
Author Organization [employer] Address [address] [place] [address] 7 [place] [address] Care Team Providers Care Delivery Engineer Name Role Phone Bety Rich COLIN Unavailable Unavailable Jeanne Dickinson Unavailable Winston Philip MD Primary Care Provider + [phone] Encounter Details Date Type Department Care Team (Late st Contact Info) Description 11/07/[address] [phone] Winston Philip MD [address] [place] [address] [phone] Social History Tobacco Use Types Packs/Day Years [...] Hx of PE and DVT. Sydnee at [facility] asking how to long to hold the Eliquis before colonoscopy. Please advise. * Telephone Encounter - Vidhya Caban - 11/07/2024 2:15 PM EST Sydnee is a nurse calling from [facility] looking to speak with one of our [...] on filedocumented in this encounter Care Teams Delivery Engineer Relationship Specialty Start Date End Date Winston Philip MD [address] [place] [address] PCP - General Internal Medicine 10/17/23 Bety Rich FNP Family Medicine 09/09/22 Jeanne Dickinson [address] [place] [address] 07/31/23 documented as of this encounter
--- OUTSIDE RECORDS SUMMARY | 2025-02-14 10:38 | XMS_ITS | Encounter Summary ---
Author Organization [employer] Address 75 [facility] 7 [place] [address] Care Team Providers Care Swaging Machine Operator Name Role Phone Bety Rich COLIN Unavailable Unavailable Ozjay Jeanne Unavailable Nicolette Donnelly Unavailable [phone] Winston Philip MD Primary Care Provider [phone] Gloria Negrete Unavailable Encounter Details Date Type Department Care Team (Late st Contact Info) Description 04/29/2024 Telephone [facility] [address] [address] Winston Philip MD [address] [place] [address] Social History Tobacco Use Types Packs/Day Years [...] 8:13 AM EDT Patient went to a rehabilitation specialist, they told him he should get a CT scan of his chest before his appointment with them on 06/04. He's asking we write the order for one so he can have one done. documented in this encounter Plan of Treatment Not on file documented as of this encounter Visit Diagnoses Not on filedocumented in this encounter Care Teams Swaging Machine Operator Relationship Specialty Start Date End Date Winston Philip MD [address] [place] [address] PCP - General Internal Medicine 10/17/23 Bety Rich FNP Family Medicine 09/09/22 Jeanne Dickinson [address] [place] [address] 07/31/23 Nicolette Donnelly [address] [place] [address] 08/07/23 07/16/24 Gloria Negrete [address] [place] [address] Community Health Worker 02/16/2405/28 documented as of this encounter
--- OUTSIDE RECORDS SUMMARY | 2025-02-14 10:38 | XMS_ITS | Encounter Summary ---
Author Organization [employer] Address [address] [place] [address] 7t [place] [address] Care Team Providers Care Senior Project Coordinator Name Role Phone Bety Rich COLIN Unavailable Unavailable OzAries thompsonna Unavailable Nicoeltte Donnelly Unavailable [phone] Winston Philip MD Primary Care Provider [phone] Gloria Negrete Unavailable Encounter Details Date Type Department Care Team (Late st Contact Info) Description 04/03/[address] [address] Winston Philip MD [address] [place] [address] [phone] Social History Tobacco Use Types Packs/Day Years [...] on filedocumented in this encounter Care Teams Senior Project Coordinator Relationship Specialty Start Date End Date Winston Philip MD [address] [place] [address] PCP - General Internal Medicine 10/17/23 Bety Rich FNP Family Medicine 09/09/22 Jeanne Dickinson [address] [place] [address] 07/31/[address] [address] 08/07/23 07/16/24 Gloria Negrete [address] [place] [address] Community Health Worker 02/16/2405/28 documented as of this encounter
--- OUTSIDE RECORDS SUMMARY | 2025-02-14 10:38 | XMS_ITS | Encounter Summary ---
Author Organization [employer] Address 75 [facility] 7t [place] [address] Care Team Providers Care Bleacher [employer] Pulp Name Role Phone Bety Rich COLIN Unavailable Unavailable Jeanne Dickinson Unavailable Winston Philip MD Primary Care Provider + [phone] Reason for Visit * Reason Onset Date Comments Med Refill 02/10/2025 Encounter Details Date Type Department Care Team (Late st Contact Info) Description 02/10/2025 Refill [facility] [address] [phone] Winston Philip MD [address] [place] [phone] Tobacco dependence syndrome Social History Tobacco Use [...] Telephone Encounter - Winston Philip MD - 02/10/2025 5:12 PM EDT Approve 3 refills * Telephone Encounter - Faby Way - 02/10/2025 8:20 AM EDT PCP: Winston Philip MD Last in-person office visit: Visit date not found Lab Results Component Value Date ALBUMIN 4.2 02/14/2024 ALT 43 02/14/2024 AST 45 (H) 02/14/2024 BUN 19 01/08/2024 CL 106 01/08/2024 CO2 27 01/08/2024 CREATININE 0.87 01/08/2024 HDL 51 09/30/2022 HGB 14.7 01/08/2024 HGBA1C 5.6 02/14/2024 K 4.5 01/08/2024 NA 140 01/08/2024 TRIG 235 (H) 09/30/2022 TSH 2.38 01/08/2024 WBC 4.2 01/08/2024 No future appointments. Comments: documented in this encounter Plan of Treatment Not on file documented as of this encounter Visit Diagnoses Diagnosis Tobacco dependence syndrome Tobacco use disorder documented in this encounter Care Teams Bleacher [employer] Pulp Relationship Specialty Start Date End Date Winston Philip MD [address] [place] [address] PCP - General Internal Medicine 10/17/23 Bety Rich FNP Family Medicine 09/09/22 Jeanne Dickinson [address] [place] [address] 07/31/23 documented as of this encounter
--- OUTSIDE RECORDS SUMMARY | 2025-02-14 10:38 | XMS_ITS | Encounter Summary ---
Author Organization [employer] Address 75 [facility] 7t [place] [address] Care Team Providers Care Apprentice Machinist Outside Name Role Phone Bety Rich Unavailable Unavailable Ozjay Jeanne Unavailable Nicolette Donnelly Unavailable [phone] Winston Philip MD Primary Care Provider [phone] Gloria Negrete Unavailable Reason for Visit * Reason Comments Med Refill Encounter Details Date Type Department Care Team (Late st Contact Info) Description 02/10/2024 Refill [facility] [address] [place] [address] Bety Rich FNP Onychomycosis Social [...] t he electric, gas, oil or water [employer] threatened to shut off services in your [...] the authorized approval for the referral to [facility], theydo not have it * Telephone [...] Center 02/14/2024 9:00 AM Winston Philip MD [facility] Comments: documented in this encounter Plan of Treatment Not on file documented as of this encounter Visit Diagnoses Diagnosis Onychomycosis Dermatophytosis of nail documented in this encounter Care Teams Apprentice Machinist Outside Relationship Specialty Start Date End Date Winston Philip MD [address] [place] [address] PCP - General Internal Medicine 10/17/23 Bety Rich FNP Family Medicine 09/09/22 Jeanne Dickinson [address] [place] [address] 07/31/23 Nicolette Donnelly [address] [place] [address] 08/07/23 07/16/24 Gloria Negrete [address] [place] [address] Community Health Worker 02/16/2405/28 documented as of this encounter
--- OUTSIDE RECORDS SUMMARY | 2025-02-14 10:38 | XMS_ITS | Encounter Summary ---
Author Organization [employer] Address [address] [place] [address] 7t [place] [address] Care Team Providers Care Patient Portal Concierge Name Role Phone Bety Rich COLIN Unavailable Unavailable OzAries thompsonna Unavailable Nicolette Donnelly Unavailable [phone] Winston Philip MD Primary Care Provider [phone] Gloria Negrete Unavailable Encounter Details Date Type Department Care Team (Late st Contact Info) Description 04/03/[address] [phone] Winston Philip MD [address] [place] [address] [phone] Social History Tobacco Use Types Packs/Day Years [...] on filedocumented in this encounter Care Teams Patient Portal Concierge Relationship Specialty Start Date End Date Winston Philip MD [address] [place] [address] PCP - General Internal Medicine 10/17/23 Bety Rich FNP Family Medicine 09/09/22 Jeanne Dickinson [address] [place] [address] 07/31/[address] [address] 08/07/23 07/16/24 Gloria Negrete [address] [place] [address] Community Health Worker 02/16/2405/28 documented as of this encounter
--- OUTSIDE RECORDS SUMMARY | 2025-02-14 10:39 | XMS_ITS | Data Portability ---
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 Role Phone FRANKY ALFARO Primary Care Provider [phone] Assessment Encounter Date Assessment Date Assessment LastModified [...] hepatitis C virus Ab, serum 2016 017 [facility], [address] [place] [address], [address], 7 15:20:13 lyme disease igg+igm Ab, serum 2016 017 [facility], [address] [place] [address], [address], 7 15:54:51 glucose, QN [mass/vol ume], serum or plasma 2016 017 [facility], [address] [place] [address], [address], 7 15:19:56 drug of abuse panel, urine 2016 017 [facility], [address] [place] [address], [address], 7 16:31:57 drug of abuse panel, urine 2016 017 [facility], [address] [facility], [place], [address], 7 16:46:16 Referral orthopedi c referral - L shoulder injured in a fall 10/13, suspect RC tear requiring surgery, please eval/xray s done 7 [facility] [place]Feb [place]uary 10:15 am Beverly, arrive 10:00 am 2016 017 LALO Paul MD, [address] [place], [address], 8 05:00:44 Procedures colonosco py procedure (PROC) - at [facility] please. Last in [address] Felipe who recommend ed repeat in 1 year. Call pt at [phone] cell. Monday is best day to contact him. 2016 017 [facility], [address] [facility], [place], [address], 7 07:44:48 Surgeries None recorded. Imaging None recorded. Medication Orders Nicoderm CQ 7 mg/24 hr daily transderm al patch 2017 018 [facility], [address], [address], [place], [address], 8 13:17:37 Nicoderm CQ 14 mg/24 hr daily transderm al patch 2017 018 [facility], [address], [address], [place], [address], 8 13:17:37 Eliquis 5 mg tablet 2017 018 [facility], [address], [address], [place], [address], 8 13:17:39 acamprosa te 333 mg tablet,de layed release 2016 017 [id number], [address], [place], [id number], 7 08:00:41 trazodone 100 mg tablet 2016 017 [facility]32172, [address], [place], [id number], 7 08:00:41 nicotine 14 mg/24 hr daily transderm al patch 2016 017 [facility]88906, [address], [place], [id number], 7 07:24:56 Nicorette 4 mg gum 2016 017 [facility]888, [address], [place], [id number], 7 13:52:44 Vivitrol 380 mg intramusc ular suspensio n,extende d release 2016 017 [facility] #57405, [address], [place], [id number], 7 07:28:38 Vivitrol 380 mg intramusc ular suspensio n,extende d release 2016 017 [facility] #82640, [address], [place], [id number], 7 07:28:38 Vivitrol 380 mg intramusc ular suspensio n,extende d release 2016 017 [facility] #67583, [address], [place], [id number], 7 07:28:38 Patient TargetsNo targets recorded. Patient Instructions Encounter Date Encounter Id Patient Instructions Last Modified By Organization Details Last Modified Time 04/07/2017 [id number] Well Visit 50 to 65: Care Instructions rcarriere Not available 04/07/2017 13:40:04 Reason for Referral Orthopedic Referral for Part ial thickness rotator cuff tear L shoulder injured in a fall 10/13, suspect RC tear requiring surgery, please eval/xrays done 10/17/2017 [facility] [place]//December 10:15 am Beverly, arrive 10:00 am Referring Physician: Gen Aldana, Family Medicine, Encounter Date: 10/24/2017 Results Created Date Observation Date Name Description Value Unit Range Abnormal Flag Note LastModifiedBy Organization Detail LastModifiedTime 04/03/20 17 04/03/2017 drug of abuse panel , urine Amphetamine negati ve Not Available [address], [address], 04/03/2017 13:14:04/03/20 17 04/03/2017 drug of abuse panel , urine Barbiturates negati ve Not Available [address], [address], 04/03/2017 13:14:04/03/20 17 04/03/2017 drug of abuse panel , urine Benzodiazepi rivas negati ve Not Available [address], [address], 04/03/2017 13:14:26 04/03/20 17 04/03/2017 drug of abuse panel , urine Cocaine negati ve Not Available [address], [address], 04/03/2017 13:14:26 04/03/20 17 04/03/2017 drug of abuse panel , urine Ecstasy negati ve Not Available [address], [address], 04/03/2017 13:14:04/03/20 17 04/03/2017 drug of abuse panel , urine Marijuana negati ve Not Available [address], [address], 04/03/2017 13:14:26 04/03/20 17 04/03/2017 drug of abuse panel , urine Methadone negati ve Not Available [address], [address], 04/03/2017 13:14:26 04/03/20 17 04/03/2017 drug of abuse panel , urine Metamphetami ne negati ve Not Available [address], [address], 04/03/2017 13:14:26 04/03/20 17 04/03/2017 drug of abuse panel , urine Opiates negati ve Not Available [address], [address], 04/03/2017 13:14:26 04/03/20 17 04/03/2017 drug of abuse panel , urine [id number] negati ve Not Available [address], [address], 04/03/2017 13:14:26 04/03/20 17 04/03/2017 drug of abuse panel , urine Oxycodone negati ve Not Available [address], [address], 04/03/2017 13:14:26 04/03/20 17 04/03/2017 drug of abuse panel , urine PCP negati ve Not Available [address], [address], 04/03/2017 13:14:26 04/03/20 17 04/03/2017 drug of abuse panel , urine Tricyclic Antidepressa nts negati ve Not Available [address], [address], 04/03/2017 13:14:26 03/07/20 17 03/07/2017 drug of abuse panel , urine Amphetamine negati ve Not Available [address], [address], 03/07/2017 13:16:54 03/07/20 17 03/07/2017 drug of abuse panel , urine Barbiturates negati ve Not Available [address], [address], 03/07/2017 13:16:54 03/07/20 17 03/07/2017 drug of abuse panel , urine Benzodiazepi rivas negati ve Not Available [address], [address], 03/07/2017 13:16:54 03/07/20 17 03/07/2017 drug of abuse panel , urine Cocaine negati ve Not Available [address], [address], 03/07/2017 13:16:54 03/07/20 17 03/07/2017 drug of abuse panel , urine Ecstasy negati ve Not Available [address], [address], 03/07/2017 13:16:54 03/07/20 17 03/07/2017 drug of abuse panel , urine Marijuana negati ve Not Available [address], [address], 03/07/2017 13:16:54 03/07/20 17 03/07/2017 drug of abuse panel , urine Methadone negati ve Not Available [address], [address], 03/07/2017 13:16:54 03/07/20 17 03/07/2017 drug of abuse panel , urine Metamphetami ne negati ve Not Available [address], [address], 03/07/2017 13:16:54 03/07/20 17 03/07/2017 drug of abuse panel , urine Opiates negati ve Not Available [address], [address], 03/07/2017 13:16:54 03/07/20 17 03/07/2017 drug of abuse panel , urine [id number] negati ve Not Available [address], [address], 03/07/2017 13:16:54 03/07/20 17 03/07/2017 drug of abuse panel , urine Oxycodone negati ve Not Available [address], [address], 03/07/2017 13:16:54 03/07/20 17 03/07/2017 drug of abuse panel , urine PCP negati ve Not Available [address], [address], 03/07/2017 13:16:54 03/07/20 17 03/07/2017 drug of abuse panel , urine Tricyclic Antidepressa nts negati ve Not Available [address], [address], 03/07/2017 13:16:54 02/08/20 17 02/07/2017 drug of abuse panel , urine Amphetamine negati ve Not Available [address], [address], 02/07/2017 14:51:39 02/08/20 17 02/07/2017 drug of abuse panel , urine Barbiturates negati ve Not Available [address], [address], 02/07/2017 14:51:39 02/08/20 17 02/07/2017 drug of abuse panel , urine Benzodiazepi rivas negati ve Not Available [address], [address], 02/07/2017 14:51:39 02/08/20 17 02/07/2017 drug of abuse panel , urine Cocaine negati ve Not Available [address], [address], 02/07/2017 14:51:39 02/08/20 17 02/07/2017 drug of abuse panel , urine Ecstasy negati ve Not Available [address], [address], 02/07/2017 14:51:39 02/08/20 17 02/07/2017 drug of abuse panel , urine Marijuana negati ve Not Available [address], [address], 02/07/2017 14:51:39 02/08/20 17 02/07/2017 drug of abuse panel , urine Methadone negati ve Not Available [address], [address], 02/07/2017 14:51:39 02/08/20 17 02/07/2017 drug of abuse panel , urine Metamphetami ne negati ve Not Available [address], [address], 02/07/2017 14:51:39 02/08/20 17 02/07/2017 drug of abuse panel , urine Opiates negati ve Not Available [address], [address], 02/07/2017 14:51:39 02/08/20 17 02/07/2017 drug of abuse panel , urine [id number] negati ve Not Available [address], [address], 02/07/2017 14:51:39 02/08/20 17 02/07/2017 drug of abuse panel , urine Oxycodone negati ve Not Available [address], [address], 02/07/2017 14:51:39 02/08/20 17 02/07/2017 drug of abuse panel , urine PCP negati ve Not Available [address], [address], 02/07/2017 14:51:39 02/08/20 17 02/07/2017 drug of abuse panel , urine Tricyclic Antidepressa nts negati ve Not Available [address], [address], 02/07/2017 14:51:39 04/03/20 17 04/04/2017 lipid panel , serum cholesterol 223 mg/dL <200 mg/dl Matthias able 200-2 39 mg/dl Borde rline High >240 mg/dl High Not Available [address], [address], 04/04/2017 08:19:30 04/03/2004/04/2017 lipid panel , serum triglyceride s 139 mg/dL <150 mg/dL Belle l 150-1 99 mg/dL Borde rline High 200-4 99 mg/dL High >500 mg/dL Very High Not Available [address], [address], 04/04/2017 08:19:30 04/03/2004/04/2017 lipid panel , serum direct HDL 54 mg/dL Not Available [address], [address], 04/04/2017 08:19:30 04/03/2004/04/2017 LDL, calcu milagrosd , [...] r is not neces francisca. Not Available [address], [address], 04/04/2017 08:19:30 04/03/2004/08/2017 hepat itis C virus Ab, serum hepatitis C antibody NON-RE ACTIVE non-re active normal Not Available [facility] [address], [address], 04/08/2017 07:40:58 04/03/20 17 04/08/2017 hepat itis C virus Ab, serum signal to cut-off 0.01 <1.00 normal Not Available [facility] [address], [place], [address], 04/08/2017 07:40:58 04/03/20 17 04/11/2017 gluco se, QN [mass /volu me], serum or plasm a glucose 100 mg/dL 70-100 Not Available [facility] [address] [facility], [place], [address], 04/11/2017 10:02:59 07/08/20 20 07/08/2020 CBC w/ auto diff WBC 10.40 K/uL 4.00-1 1.00 Note Refer ence Range updat es to all CBC and Diffe liset al resul ts. Not Available [facility] [address] [place] [address], [address], 07/08/2020 16:25:56 07/08/20 20 07/08/2020 CBC w/ auto diff RBC 4.95 M/uL 3.90-5 .69 Not Available [facility] ([facility]) [address] [place] [address], [address], 07/08/2020 16:25:56 07/08/20 20 07/08/2020 CBC w/ auto diff HGB 16.1 g/dL 12.4-1 7.3 Note updat ed Refer ence Range s for all CBC and Diffe liset al resul ts. Not Available [facility] ([facility]) [address] [place] [address], [address], 07/08/2020 16:25:56 07/08/20 20 07/08/2020 CBC w/ auto diff HCT 45.8 % 37.0-5 1.0 Not Available [facility] ([facility]) [address] [place] [address], [address], 07/08/2020 16:25:56 07/08/20 20 07/08/2020 CBC w/ auto diff plt 305 K/uL 140-43 0 Not Available [facility] (Outpatient) [address] [place], [address], 07/08/2020 16:25:56 07/08/20 20 07/08/2020 CBC w/ auto diff MCV 92.5 fL 78.0-9 7.0 Not Available [facility] ([facility]) [address] [place], [address], 07/08/2020 16:25:56 07/08/20 20 07/08/2020 CBC w/ auto diff MCH 32.5 pg 25.0-3 3.0 Not Available [facility] ([facility]) [address] [place], [address], 07/08/2020 16:25:56 07/08/20 20 07/08/2020 CBC w/ auto diff MCHC 35.2 g/dL 32.0-3 6.0 Not Available [facility] ([facility]) [address] [place], [address], 07/08/2020 16:25:56 07/08/20 20 07/08/2020 CBC w/ auto diff RDW 13.2 % 11.0-1 5.0 Not Available [facility] ([facility]) [address] [place], [address], 07/08/2020 16:25:56 07/08/20 20 07/08/2020 CBC w/ auto diff MPV 8.5 fL 8.4-12 .8 Not Available [facility] ([facility]) [address] [place], [address], 07/08/2020 16:25:56 07/08/20 20 07/08/2020 CBC w/ auto diff NRBC 0.00 /100_ WBCs 0 Not Available [facility] ([facility]) [address] [place], [address], 07/08/2020 16:25:56 07/08/20 20 07/08/2020 CBC w/ auto diff absolute NRBC 0.00 K/uL 0 Not Available [facility] ([facility]) [address] [place], [address], 07/08/2020 16:25:56 07/08/20 20 07/08/2020 CBC w/ auto diff diff method Auto Not Available [facility] ([facility]) [address] [place], [address], 07/08/2020 16:25:56 07/08/20 20 07/08/2020 CBC w/ auto diff neuts 87.2 % 43.0-7 5.0 high Not Available [facility] ([facility]) [address] [place], [address], 07/08/2020 16:25:56 07/08/20 20 07/08/2020 CBC w/ auto diff lymphs 5.4 % 18.2-4 7.4 low Not Available [facility] ([facility]) [address] [place], [address], 07/08/2020 16:25:56 07/08/20 20 07/08/2020 CBC w/ auto diff monos 6.7 % 4.00-1 1.00 Not Available [facility] ([facility]) [address] [place], [address], 07/08/2020 16:25:56 07/08/20 20 07/08/2020 CBC w/ auto diff eos 0.1 % 0.0-8. 0 Not Available [facility] ([facility]) [address] [place], [address], 07/08/2020 16:25:56 07/08/20 20 07/08/2020 CBC w/ auto diff basos 0.3 % 0.0-2. 0 Not Available [facility]) [address] [place], [address], 07/08/2020 16:25:56 07/08/20 20 07/08/2020 CBC w/ auto diff granulocytes , immature (%) 0.3 % 0.0-0. 9 Not Available [facility] ([facility]) [address] [place], [address], 07/08/2020 16:25:56 07/08/20 20 07/08/2020 CBC w/ auto diff absolute neuts 9.07 K/uL 1.80-7 .70 high Not Available [facility] ([facility]) [address] [place], [address], 07/08/2020 16:25:56 07/08/20 20 07/08/2020 CBC w/ auto diff absolute lymphs 0.56 K/uL 1.00-3 .10 low Not Available [facility] ([facility]) [address] [place], [address], 07/08/2020 16:25:56 07/08/20 20 07/08/2020 CBC w/ auto diff absolute monos 0.70 K/uL 0.20-0 .80 Not Available [facility] ([facility]) [address] [place], [address], 07/08/2020 16:25:56 07/08/20 20 07/08/2020 CBC w/ auto diff absolute eos 0.01 K/uL 0.00-0 .80 Not Available [facility] ([facility]) [address] [place], [address], 07/08/2020 16:25:56 07/08/20 20 07/08/2020 CBC w/ auto diff absolute basos 0.03 K/uL 0.00-0 .09 Not Available [facility] ([facility]) [address] [place], [address], 07/08/2020 16:25:56 07/08/20 20 07/08/2020 CBC w/ auto diff granulocytes , immature 0.03 K/uL 0.00-0 .05 Not Available [facility] ([facility]) [address] [place], [address], 07/08/2020 16:25:56 07/08/20 20 07/08/2020 urina lysis , refle x cultu re color Yellow yellow Not Available [facility] [address] [place], [address], 07/08/2020 16:26:04 07/08/20 20 07/08/2020 urina lysis , refle x cultu re clarity Clear Not Available [facility] ([facility] [address] [place], [address], 07/08/2020 16:26:04 07/08/20 20 07/08/2020 urina lysis , refle x cultu re glucose Negati ve negati ve Not Available [facility] ([facility]) [address] [place], [address], 07/08/2020 16:26:04 07/08/20 20 07/08/2020 urina lysis , refle x cultu re bili Negati ve negati ve Not Available [facility] ([facility]) [address] [place], [address], 07/08/2020 16:26:04 07/08/20 20 07/08/2020 urina lysis , refle x cultu re ketones 1+ negati ve abnormal Not Available [facility] ([facility]) [address] [place], [address], 07/08/2020 16:26:04 07/08/20 20 07/08/2020 urina lysis , refle x cultu re specific gravity 1.025 1.005- 1.030 Not Available [facility] ([facility]) [address] [place], [address], 07/08/2020 16:26:04 07/08/20 20 07/08/2020 urina lysis , refle x cultu re blood Negati ve negati ve Not Available [facility] ([facility]) [address] [place], [address], 07/08/2020 16:26:04 07/08/20 20 07/08/2020 urina lysis , refle x cultu re pH 6.0 5.0-8. 0 Not Available [facility] ([facility]) [address] [place], [address], 07/08/2020 16:26:04 07/08/20 20 07/08/2020 urina lysis , refle x cultu re protein Trace negati ve abnormal Not Available [facility] ([facility]) [address] [place], [address], 07/08/2020 16:26:04 07/08/20 20 07/08/2020 urina lysis , refle x cultu re nitrite Negati ve negati ve Not Available [facility] ([facility]) [address] [place], [address], 07/08/2020 16:26:04 07/08/20 20 07/08/2020 urina lysis , refle x cultu re leukocyte esterase, ur Negati ve negati ve Not Available [facility] ([facility]) [address] [place], [address], 07/08/2020 16:26:04 07/08/20 20 07/08/2020 BMP, blood sodium 138 mmol/ L 133-14 6 Not Available [facility] [address] [place], [address], 07/08/2020 16:57:39 07/08/20 20 07/08/2020 BMP, blood chloride 100 mmol/ L 96-108 Not Available [facility] [address] [place], [address], 07/08/2020 16:57:39 07/08/20 20 07/08/2020 BMP, blood potassium 4.8 mmol/ L 3.3-5. 1 Not Available [facility] ([facility]) [address] [place], [address], 07/08/2020 16:57:39 07/08/20 20 07/08/2020 BMP, blood CO2 26 mmol/ L 21-35 Not Available [facility]) [address] [place], [address], 07/08/2020 16:57:39 07/08/20 20 07/08/2020 BMP, blood BUN 18 mg/dL 6-19 Not Available [facility] [address] [place], [address], 07/08/2020 16:57:39 07/08/20 20 07/08/2020 BMP, blood creatinine 0.90 mg/dL 0.5-1. 5 Not Available [facility] ([facility]) [address] [place], [address], 07/08/2020 16:57:39 07/08/20 20 07/08/2020 BMP, blood glucose 135 mg/dL 70-99 high Not Available [facility] ([facility]) [address] [place], [address], 07/08/2020 16:57:39 07/08/20 20 07/08/2020 BMP, blood calcium 9.9 mg/dL 8.4-10 .3 Not Available [facility] ([facility]) [address] [place], [address], 07/08/2020 16:57:39 07/08/20 20 07/08/2020 BMP, blood eGFR 94 mL/mi n/1.7 3m2 >59 Estim ated glome rular filtr ation rate calcu lated using the CKD-E PI equat ion. Not Available [facility]) [address] [place], [address], 07/08/2020 16:57:39 07/08/20 20 07/08/2020 BMP, blood anion gap 17 mmol/ L 10-20 Not Available [facility] ([facility]) [address] [place], [address], 07/08/2020 16:57:39 07/08/20 20 07/08/2020 lipas e, serum or plasm a lipase 20 U/L 16-63 Not Available [facility]) [address] [place], [address], 07/08/2020 16:57:41 07/08/20 20 07/08/2020 lfts (hepa tic panel ) alkaline phosphatase 50 U/L 39-117 Not Available [facility]) [address] [place], [address], 07/08/2020 16:57:42 07/08/20 20 07/08/2020 lfts (hepa tic panel ) total bilirubin 0.5 mg/dL 0.0-1. 2 Not Available [facility] ([facility]) [address] [place], [address], 07/08/2020 16:57:42 07/08/20 20 07/08/2020 lfts (hepa tic panel ) direct bilirubin <0.2 mg/dL 0-0.3 Not Available [facility] ([facility]) [address] [place], [address], 07/08/2020 16:57:42 07/08/20 20 07/08/2020 lfts (hepa tic panel ) bilirubin (indirect) NOT CALCUL ATED mg/dL 0-1.5 Not Available [facility] ([facility]) [address] [place], [address], 07/08/2020 16:57:42 07/08/20 20 07/08/2020 lfts (hepa tic panel ) AST 21 U/L 0-37 Not Available [facility] ([facility]) [address] [place], [address], 07/08/2020 16:57:42 07/08/20 20 07/08/2020 lfts (hepa tic panel ) ALT 17 U/L 0-40 Not Available [facility] ([facility]) [address] [place], [address], 07/08/2020 16:57:42 07/08/20 20 07/08/2020 lfts (hepa tic panel ) total protein 7.3 g/dL 6.5-8. 0 Not Available [facility] ([facility]) [address] [place], [address], 07/08/2020 16:57:42 07/08/20 20 07/08/2020 lfts (hepa tic panel ) albumin 5.0 g/dL 3.9-4. 8 high Not Available [facility] ([facility]) [address] [place], [address], 07/08/2020 16:57:42 07/08/20 20 07/08/2020 lfts (hepa tic panel ) globulin 2.3 g/dL 1-4.8 Not Available [facility] ([facility]) [address] [place], [address], 07/08/2020 16:57:42 07/08/20 20 07/08/2020 lfts (hepa tic panel ) A/G ratio 2.17 ratio 1.00-4 .80 Not Available [facility] ([facility]) [address] [place], [address], 07/08/2020 16:57:42 07/08/20 20 07/08/2020 SARS CoV 2 RNA (COVI D-19) , QL, baseball [employer] for [employer]-P CR, respi rator y speci men covid-19 source NASAL SWAB Not Available [facility] ([facility]) [address] [place], [address], 07/08/2020 21:21:18 07/08/20 20 07/08/2020 SARS CoV 2 RNA (COVI D-19) , QL, baseball [employer]-P CR, respi rator y speci men covid testing status In-mimi se testin g being perfor med Not Available [facility] (Outpatient) [address] [place], [address], 07/08/2020 21:21:18 07/08/20 20 07/08/2020 SARS CoV 2 RNA (COVI D-19) , QL, baseball [employer]-P CR, respi rator y speci men specimen source NASAL Not Available [facility] ([facility]) [address] [place], [address], 07/08/2020 21:43:36 07/08/20 20 07/08/2020 SARS CoV 2 RNA (COVI D-19) , QL, baseball ump[employer] for [employer]-P CR, respi rator y speci men sars-cov-2 [...] rizat ion can be found at the [employer] links : For Healt hcare Provi ders: https ://ww w.fda .gov/ media /2055 23/do wnloa d For Patie nts: https ://ww w.fda .gov. media /1365 24/do wnloa d. Not Available [facility] [address] [place], [address], 07/08/2020 21:43:36 07/09/20 20 07/09/2020 CBC WBC 5.08 K/uL 4.00-1 1.00 Note Refer ence Range updat es to all CBC and Melanye liset al resul ts. Not Available [facility] ([facility]) [address] [place], [address], 07/09/2020 05:54:49 07/09/20 20 07/09/2020 CBC RBC 4.05 M/uL 3.90-5 .69 Not Available [facility] ([facility]) [address] [place], [address], 07/09/2020 05:54:49 07/09/20 20 07/09/2020 CBC HGB 13.2 g/dL 12.4-1 7.3 Note updat ed Refer ence Range s for all CBC and Melanye liset al resul ts. Not Available [facility] ([facility]) [address] [place], [address], 07/09/2020 05:54:49 07/09/2007/09/2020 CBC HCT 37.7 % 37.0-5 1.0 Not Available [facility] ([facility]) [address] [place], [address], 07/09/2020 05:54:49 07/09/2007/09/2020 CBC plt 259 K/uL 140-43 0 Not Available [facility] ([facility]) [address] [place], [address], 07/09/2020 05:54:49 07/09/2007/09/2020 CBC MCV 93.1 fL 78.0-9 7.0 Not Available [facility] ([facility]) [address] [place], [address], 07/09/2020 05:54:49 07/09/2007/09/2020 CBC MCH 32.6 pg 25.0-3 3.0 Not Available [facility] ([facility]) [address] [place], [address], 07/09/2020 05:54:49 07/09/20 20 07/09/2020 CBC MCHC 35.0 g/dL 32.0-3 6.0 Not Available [facility]) [address] [place] [address], [address], 07/09/2020 05:54:49 07/09/20 20 07/09/2020 CBC RDW 13.2 % 11.0-1 5.0 Not Available [facility]) [address] [place] [address], [address], 07/09/2020 05:54:49 07/09/20 20 07/09/2020 CBC MPV 8.5 fL 8.4-12 .8 Not Available [facility]) [address] [place] [address], [address], 07/09/2020 05:54:49 07/09/20 20 07/09/2020 CBC NRBC 0.00 /100_ WBCs 0 Not Available [facility] ([facility]) [address] [place] [address], [address], 07/09/2020 05:54:49 07/09/2007/09/2020 CBC absolute NRBC 0.00 K/uL 0 Not Available [facility] (Outpatient) [address] [place] [address], [id number], 07/09/2020 05:54:49 07/09/2007/09/2020 BMP, blood sodium 140 mmol/ L 133-14 6 Not Available [facility] (Outpatient) [address] [place] [address], [address], 07/09/2020 06:26:39 07/09/2007/09/2020 BMP, blood chloride 104 mmol/ L 96-108 Not Available [facility] (Outpatient) [address] [place] [address], [address], 07/09/2020 06:26:39 07/09/2007/09/2020 BMP, blood potassium 4.1 mmol/ L 3.3-5. 1 Not Available [facility] (Outpatient) [address] [place], [address], 07/09/2020 06:26:39 07/09/20 20 07/09/2020 BMP, blood CO2 27 mmol/ L 21-35 Not Available [facility] (Outpatient) [address] [place], [address], 07/09/2020 06:26:39 07/09/20 20 07/09/2020 BMP, blood BUN 17 mg/dL 6-19 Not Available [facility] (Outpatient) [address] [place], [address], 07/09/2020 06:26:39 07/09/20 20 07/09/2020 BMP, blood creatinine 0.90 mg/dL 0.5-1. 5 Not Available [facility] (Outpatient) [address] [place], [address], 07/09/2020 06:26:39 07/09/20 20 07/09/2020 BMP, blood glucose 142 mg/dL 70-99 high Not Available [facility] (Outpatient) [address] [place], [address], 07/09/2020 06:26:39 07/09/20 20 07/09/2020 BMP, blood calcium 8.7 mg/dL 8.4-10 .3 Not Available [facility] (Outpatient) [address] [place], [address], 07/09/2020 06:26:39 07/09/20 20 07/09/2020 BMP, blood eGFR 94 mL/mi n/1.7 3m2 >59 Estim ated glome rular filtr ation rate calcu lated using the CKD-E PI equat ion. Not Available [facility] (Outpatient) [address] [place] [address], [id number], 07/09/2020 06:26:39 07/09/2007/09/2020 BMP, blood anion gap 13 mmol/ L 10-20 Not Available [facility] (Outpatient) [address] [place], [address], 07/09/2020 06:26:39 07/09/20 20 07/09/2020 magne sium, QN, serum or plasm a magnesium 2.1 mg/dL 1.6-2. 6 Not Available [facility] (Outpatient) [address] [place], [address], 07/09/2020 06:26:40 07/09/20 20 07/09/2020 phosp horus , serum or plasm a phosphorus 4.0 mg/dL 2.7-4. 5 Not Available [facility] (Outpatient) [address] [place], [address], 07/09/2020 06:26:41 07/10/20 20 07/10/2020 CBC w/ auto diff WBC 2.78 K/uL 4.00-1 1.00 low Note Refer ence Range updat es to all CBC and Diffe renti al resul ts. Not Available [facility] (Outpatient) [address] [place] [address], [address], 07/10/2020 06:04:03 07/10/20 20 07/10/2020 CBC w/ auto diff RBC 3.95 M/uL 3.90-5 .69 Not Available [facility] (Outpatient) [address] [place] [address], [address], 07/10/2020 06:04:03 07/10/20 20 07/10/2020 CBC w/ auto diff HGB 12.7 g/dL 12.4-1 7.3 Note updat ed Refer ence Range s for all CBC and Diffe renti al resul ts. Not Available [facility] (Outpatient) [address] [place], [address], 07/10/2020 06:04:03 07/10/20 20 07/10/2020 CBC w/ auto diff HCT 37.1 % 37.0-5 1.0 Not Available [facility] (Outpatient) [address] [place], [address], 07/10/2020 06:04:03 07/10/20 20 07/10/2020 CBC w/ auto diff plt 238 K/uL 140-43 0 Not Available [facility] (Outpatient) [address] [place], [address], 07/10/2020 06:04:03 07/10/20 20 07/10/2020 CBC w/ auto diff MCV 93.9 fL 78.0-9 7.0 Not Available [facility] (Outpatient) [address] [place], [address], 07/10/2020 06:04:03 07/10/20 20 07/10/2020 CBC w/ auto diff MCH 32.2 pg 25.0-3 3.0 Not Available [facility] (Outpatient) [address] [place], [address], 07/10/2020 06:04:03 07/10/20 20 07/10/2020 CBC w/ auto diff MCHC 34.2 g/dL 32.0-3 6.0 Not Available [facility] (Outpatient) [address] [place], [address], 07/10/2020 06:04:03 07/10/20 20 07/10/2020 CBC w/ auto diff RDW 13.1 % 11.0-1 5.0 Not Available [facility] (Outpatient) [address] [place], [address], 07/10/2020 06:04:03 07/10/2007/10/2020 CBC w/ auto diff MPV 8.6 fL 8.4-12 .8 Not Available [facility] (Outpatient) [address] [place], [address], 07/10/2020 06:04:03 07/10/20 20 07/10/2020 CBC w/ auto diff NRBC 0.00 /100_ WBCs 0 Not Available [facility] (Outpatient) [address] [place], [address], 07/10/2020 06:04:03 07/10/20 20 07/10/2020 CBC w/ auto diff absolute NRBC 0.00 K/uL 0 Not Available [facility] (Outpatient) [address] [place], [address], 07/10/2020 06:04:03 07/10/20 20 07/10/2020 CBC w/ auto diff diff method Auto Not Available [facility] (Outpatient) [address] [place], [address], 07/10/2020 06:04:03 07/10/20 20 07/10/2020 CBC w/ auto diff neuts 49.3 % 43.0-7 5.0 Not Available [facility] (Outpatient) [address] [place], [address], 07/10/2020 06:04:03 07/10/20 20 07/10/2020 CBC w/ auto diff lymphs 33.1 % 18.2-4 7.4 Not Available [facility] (Outpatient) [address] [place], [address], 07/10/2020 06:04:03 07/10/20 20 07/10/2020 CBC w/ auto diff monos 11.2 % 4.00-1 1.00 high Not Available [facility] (Outpatient) [address] [place], [address], 07/10/2020 06:04:03 07/10/20 20 07/10/2020 CBC w/ auto diff eos 5.0 % 0.0-8. 0 Not Available [facility] (Outpatient) [address] [place], [address], 07/10/2020 06:04:03 07/10/20 20 07/10/2020 CBC w/ auto diff basos 0.7 % 0.0-2. 0 Not Available [facility] (Outpatient) [address] [place], [address], 07/10/2020 06:04:03 07/10/20 20 07/10/2020 CBC w/ auto diff granulocytes , immature (%) 0.7 % 0.0-0. 9 Not Available [facility] (Outpatient) [address] [place], [address], 07/10/2020 06:04:03 07/10/20 20 07/10/2020 CBC w/ auto diff absolute neuts 1.37 K/uL 1.80-7 .70 low Not Available [facility] (Outpatient) [address] [place], [address], 07/10/2020 06:04:03 07/10/20 20 07/10/2020 CBC w/ auto diff absolute lymphs 0.92 K/uL 1.00-3 .10 low Not Available [facility] (Outpatient) [address] [place], [address], 07/10/2020 06:04:03 07/10/2007/10/2020 CBC w/ auto diff absolute monos 0.31 K/uL 0.20-0 .80 Not Available [facility] (Outpatient) [address] [place], [address], 07/10/2020 06:04:03 07/10/2007/10/2020 CBC w/ auto diff absolute eos 0.14 K/uL 0.00-0 .80 Not Available [facility] (Outpatient) [address] [place], [address], 07/10/2020 06:04:03 07/10/2007/10/2020 CBC w/ auto diff absolute basos 0.02 K/uL 0.00-0 .09 Not Available [facility] (Outpatient) [address] [place], [address], 07/10/2020 06:04:03 07/10/20 20 07/10/2020 CBC w/ auto diff granulocytes , immature 0.02 K/uL 0.00-0 .05 Not Available [facility] (Outpatient) [address] [place], [address], 07/10/2020 06:04:03 07/10/20 20 07/10/2020 BMP, blood sodium 145 mmol/ L 133-14 6 Not Available [facility] (Outpatient) [address] [place], [address], 07/10/2020 06:23:58 07/10/20 20 07/10/2020 BMP, blood chloride 108 mmol/ L 96-108 Not Available [facility] (Outpatient) [address] [place], [address], 07/10/2020 06:23:58 07/10/20 20 07/10/2020 BMP, blood potassium 4.1 mmol/ L 3.3-5. 1 Not Available [facility] (Outpatient) [address] [place], [address], 07/10/2020 06:23:58 07/10/20 20 07/10/2020 BMP, blood CO2 27 mmol/ L 21-35 Not Available [facility] (Outpatient) [address] [place], [address], 07/10/2020 06:23:58 07/10/20 20 07/10/2020 BMP, blood BUN 12 mg/dL 6-19 Not Available [facility] (Outpatient) [address] [place], [address], 07/10/2020 06:23:58 07/10/20 20 07/10/2020 BMP, blood creatinine 0.90 mg/dL 0.5-1. 5 Not Available [facility] (Outpatient) [address] [place], [address], 07/10/2020 06:23:58 07/10/20 20 07/10/2020 BMP, blood glucose 95 mg/dL 70-99 Not Available [facility] (Outpatient) [address] [place], [address], 07/10/2020 06:23:58 07/10/20 20 07/10/2020 BMP, blood calcium 8.8 mg/dL 8.4-10 .3 Not Available [facility] (Outpatient) [address] [place], [address], 07/10/2020 06:23:58 07/10/20 20 07/10/2020 BMP, blood eGFR 94 mL/mi n/1.7 3m2 >59 Estim ated glome rular filtr ation rate calcu lated using the CKD-E PI equat ion. Not Available [facility] (Outpatient) [address] [place], [address], 07/10/2020 06:23:58 07/10/20 20 07/10/2020 BMP, blood anion gap 14 mmol/ L 10-20 Not Available [facility] (Outpatient) [address] [place], [address], 07/10/2020 06:23:58 07/10/20 20 07/10/2020 magne sium, QN, serum or plasm a magnesium 2.0 mg/dL 1.6-2. 6 Not Available [facility] (Outpatient) [address] [place], [address], 07/10/2020 06:24:00 07/10/20 20 07/10/2020 phosp horus , serum or plasm a phosphorus 3.9 mg/dL 2.7-4. 5 Not Available [facility] (Outpatient) [address] [place], [address], 07/10/2020 06:24:01 07/11/20 20 07/11/2020 CBC w/ auto diff WBC 2.86 K/uL 4.00-1 1.00 low Note Refer ence Range updat es to all CBC and Diffe renti al resul ts. Not Available [facility] (Outpatient) [address] [place], [address], 07/11/2020 05:47:47 07/11/20 20 07/11/2020 CBC w/ auto diff RBC 4.04 M/uL 3.90-5 .69 Not Available [facility] (Outpatient) [address] [place], [address], 07/11/2020 05:47:47 07/11/20 20 07/11/2020 CBC w/ auto diff HGB 13.3 g/dL 12.4-1 7.3 Note updat ed Refer ence Range s for all CBC and Diffe renti al resul ts. Not Available [facility] (Outpatient) [address] [place], [address], 07/11/2020 05:47:47 07/11/20 20 07/11/2020 CBC w/ auto diff HCT 37.6 % 37.0-5 1.0 Not Available [facility] (Outpatient) [address] [place], [address], 07/11/2020 05:47:47 07/11/20 20 07/11/2020 CBC w/ auto diff plt 247 K/uL 140-43 0 Not Available [facility] (Outpatient) [address] [place] [address], [address], 07/11/2020 05:47:47 07/11/20 20 07/11/2020 CBC w/ auto diff MCV 93.1 fL 78.0-9 7.0 Not Available [facility] (Outpatient) [address] [place], [address], 07/11/2020 05:47:47 07/11/20 20 07/11/2020 CBC w/ auto diff MCH 32.9 pg 25.0-3 3.0 Not Available [facility] (Outpatient) [address] [place], [address], 07/11/2020 05:47:47 07/11/20 20 07/11/2020 CBC w/ auto diff MCHC 35.4 g/dL 32.0-3 6.0 Not Available [facility] (Outpatient) [address] [place], [address], 07/11/2020 05:47:47 07/11/20 20 07/11/2020 CBC w/ auto diff RDW 12.8 % 11.0-1 5.0 Not Available [facility] (Outpatient) [address] [place], [address], 07/11/2020 05:47:47 07/11/20 20 07/11/2020 CBC w/ auto diff MPV 8.5 fL 8.4-12 .8 Not Available [facility] (Outpatient) [address] [place] [address], [address], 07/11/2020 05:47:47 07/11/20 20 07/11/2020 CBC w/ auto diff NRBC 0.00 /100_ WBCs 0 Not Available [facility] (Outpatient) [address] [place] [address], [address], 07/11/2020 05:47:47 07/11/20 20 07/11/2020 CBC w/ auto diff absolute NRBC 0.00 K/uL 0 Not Available [facility] (Outpatient) [address] [place], [address], 07/11/2020 05:47:47 07/11/20 20 07/11/2020 CBC w/ auto diff diff method Auto Not Available [facility] (Outpatient) [address] [place], [address], 07/11/2020 05:47:47 07/11/20 20 07/11/2020 CBC w/ auto diff neuts 50.1 % 43.0-7 5.0 Not Available [facility] (Outpatient) [address] [place], [address], 07/11/2020 05:47:47 07/11/20 20 07/11/2020 CBC w/ auto diff lymphs 31.8 % 18.2-4 7.4 Not Available [facility] (Outpatient) [address] [place], [address], 07/11/2020 05:47:47 07/11/20 20 07/11/2020 CBC w/ auto diff monos 12.6 % 4.00-1 1.00 high Not Available [facility] (Outpatient) [address] [place], [address], 07/11/2020 05:47:47 07/11/20 20 07/11/2020 CBC w/ auto diff eos 4.2 % 0.0-8. 0 Not Available [facility] (Outpatient) [address] [place] [address], [address], 07/11/2020 05:47:47 07/11/20 20 07/11/2020 CBC w/ auto diff basos 1.0 % 0.0-2. 0 Not Available [facility] (Outpatient) [address] [place] [address], [address], 07/11/2020 05:47:47 07/11/20 20 07/11/2020 CBC w/ auto diff granulocytes , immature (%) 0.3 % 0.0-0. 9 Not Available [facility] (Outpatient) [address] [place] [address], [address], 07/11/2020 05:47:47 07/11/20 20 07/11/2020 CBC w/ auto diff absolute neuts 1.43 K/uL 1.80-7 .70 low Not Available [facility] (Outpatient) [address] [place] [address], [address], 07/11/2020 05:47:47 07/11/20 20 07/11/2020 CBC w/ auto diff absolute lymphs 0.91 K/uL 1.00-3 .10 low Not Available [facility] (Outpatient) [address] [place], [address], 07/11/2020 05:47:47 07/11/20 20 07/11/2020 CBC w/ auto diff absolute monos 0.36 K/uL 0.20-0 .80 Not Available [facility] (Outpatient) [address] [place], [address], 07/11/2020 05:47:47 07/11/20 20 07/11/2020 CBC w/ auto diff absolute eos 0.12 K/uL 0.00-0 .80 Not Available [facility] (Outpatient) [address] [place], [address], 07/11/2020 05:47:47 07/11/20 20 07/11/2020 CBC w/ auto diff absolute basos 0.03 K/uL 0.00-0 .09 Not Available [facility] (Outpatient) [address] [place], [address], 07/11/2020 05:47:47 07/11/20 20 07/11/2020 CBC w/ auto diff granulocytes , immature 0.01 K/uL 0.00-0 .05 Not Available [facility] (Outpatient) [address] [place], [address], 07/11/2020 05:47:47 07/11/20 20 07/11/2020 BMP, blood sodium 144 mmol/ L 133-14 6 Not Available [facility] (Outpatient) [address] [place], [address], 07/11/2020 06:14:38 07/11/2007/11/2020 BMP, blood chloride 106 mmol/ L 96-108 Not Available [facility] (Outpatient) [address] [place], [address], 07/11/2020 06:14:38 07/11/20 20 07/11/2020 BMP, blood potassium 4.0 mmol/ L 3.3-5. 1 Not Available [facility] (Outpatient) [address] [place], [address], 07/11/2020 06:14:38 07/11/20 20 07/11/2020 BMP, blood CO2 28 mmol/ L 21-35 Not Available [facility] (Outpatient) [address] [place], [address], 07/11/2020 06:14:38 07/11/20 20 07/11/2020 BMP, blood BUN 9 mg/dL 6-19 Not Available [facility] (Outpatient) [address] [place], [address], 07/11/2020 06:14:38 07/11/20 20 07/11/2020 BMP, blood creatinine 0.90 mg/dL 0.5-1. 5 Not Available [facility] (Outpatient) [address] [place], [address], 07/11/2020 06:14:38 07/11/20 20 07/11/2020 BMP, blood glucose 96 mg/dL 70-99 Not Available [facility] (Outpatient) [address] [place], [address], 07/11/2020 06:14:38 07/11/20 20 07/11/2020 BMP, blood calcium 8.9 mg/dL 8.4-10 .3 Not Available [facility] (Outpatient) [address] [place], [address], 07/11/2020 06:14:38 07/11/2007/11/2020 BMP, blood eGFR 94 mL/mi n/1.7 3m2 >59 Estim ated glome rular filtr ation rate calcu lated using the CKD-E PI equat ion. Not Available [facility] (Outpatient) [address] [place] [address], [address], 07/11/2020 06:14:38 07/11/20 20 07/11/2020 BMP, blood anion gap 14 mmol/ L 10-20 Not Available [facility] (Outpatient) [address] [place], [address], 07/11/2020 06:14:38 07/11/20 20 07/11/2020 magne sium, QN, serum or plasm a magnesium 2.0 mg/dL 1.6-2. 6 Not Available [facility] (Outpatient) [address] [place], [address], 07/11/2020 06:14:40 07/11/20 20 07/11/2020 phosp horus , serum or plasm a phosphorus 4.1 mg/dL 2.7-4. 5 Not Available [facility] (Outpatient) [address] [place], [address], 07/11/2020 06:14:41 03/21/20 21 03/21/2021 trey zoe respi rator y viral order (pro) test ordered Rapid COVID has been ordere d Not Available [facility] (Outpatient) [address] [place], [address], 03/21/2021 15:41:30 03/21/20 21 03/21/2021 trey zoe respi rator y viral order (pro) specimen source NASAL Not Available [facility] (Outpatient) [address] [place] [address], [address], 03/21/2021 15:41:30 03/21/20 21 03/21/2021 trey zoe [...] Heather hernandez can be found at the [employer] links : For Healt hcare Provi ders: https ://ww w.[employer] .gov/ media /1365 23/do wnloa d For Patie nts: https ://ww Bplats.[employer] .gov. media /1365 24/do wnloa d. Not Available [facility] (Outpatient) [address] [place], [address], 03/21/2021 15:41:30 03/21/20 21 03/21/2021 CBC w/ auto diff WBC 3.27 K/uL 4.00-1 1.00 low Not Available [facility] (Outpatient) [address] [place] [address], [address], 03/21/2021 15:44:51 03/21/20 21 03/21/2021 CBC w/ auto diff RBC 4.92 M/uL 3.90-5 .69 Not Available [facility] (Outpatient) [address] [place], [address], 03/21/2021 15:44:51 03/21/20 21 03/21/2021 CBC w/ auto diff HGB 15.9 g/dL 12.4-1 7.3 Not Available [facility] (Outpatient) [address] [place], [address], 03/21/2021 15:44:51 03/21/20 21 03/21/2021 CBC w/ auto diff HCT 47.0 % 37.0-5 1.0 Not Available [facility] (Outpatient) [address] [place] [address], [address], 03/21/2021 15:44:51 03/21/20 21 03/21/2021 CBC w/ auto diff plt 196 K/uL 140-43 0 Not Available [facility] (Outpatient) [address] [place], [address], 03/21/2021 15:44:51 03/21/20 21 03/21/2021 CBC w/ auto diff MCV 95.5 fL 78.0-9 7.0 Not Available [facility] (Outpatient) [address] [place], [address], 03/21/2021 15:44:51 03/21/20 21 03/21/2021 CBC w/ auto diff MCH 32.3 pg 25.0-3 3.0 Not Available [facility] (Outpatient) [address] [place], [address], 03/21/2021 15:44:51 03/21/20 21 03/21/2021 CBC w/ auto diff MCHC 33.8 g/dL 32.0-3 6.0 Not Available [facility] (Outpatient) [address] [place], [address], 03/21/2021 15:44:51 03/21/20 21 03/21/2021 CBC w/ auto diff RDW 14.6 % 11.0-1 5.0 Not Available [facility] (Outpatient) [address] [place] [address], [address], 03/21/2021 15:44:51 03/21/20 21 03/21/2021 CBC w/ auto diff MPV 8.3 fL 8.4-12 .8 low Not Available [facility] (Outpatient) [address] [place], [address], 03/21/2021 15:44:51 03/21/20 21 03/21/2021 CBC w/ auto diff NRBC 0.00 /100_ WBCs 0 Not Available [facility] (Outpatient) [address] [place] [address], [address], 03/21/2021 15:44:51 03/21/20 21 03/21/2021 CBC w/ auto diff absolute NRBC 0.00 K/uL 0 Not Available [facility] (Outpatient) [address] [place], [address], 03/21/2021 15:44:51 03/21/20 21 03/21/2021 CBC w/ auto diff diff method Auto Not Available [facility] (Outpatient) [address] [place], [address], 03/21/2021 15:44:51 03/21/20 21 03/21/2021 CBC w/ auto diff neuts 46.8 % 43.0-7 5.0 Not Available [facility] (Outpatient) [address] [place], [address], 03/21/2021 15:44:51 03/21/20 21 03/21/2021 CBC w/ auto diff lymphs 41.0 % 18.2-4 7.4 Not Available [facility] (Outpatient) [address] [place], [address], 03/21/2021 15:44:51 03/21/20 21 03/21/2021 CBC w/ auto diff monos 9.5 % 4.00-1 1.00 Not Available [facility] (Outpatient) [address] [place], [address], 03/21/2021 15:44:51 03/21/20 21 03/21/2021 CBC w/ auto diff eos 0.6 % 0.0-8. 0 Not Available [facility] (Outpatient) [address] [place], [address], 03/21/2021 15:44:51 03/21/20 21 03/21/2021 CBC w/ auto diff basos 0.9 % 0.0-2. 0 Not Available [facility] (Outpatient) [address] [place], [address], 03/21/2021 15:44:51 03/21/20 21 03/21/2021 CBC w/ auto diff granulocytes , immature (%) 1.2 % 0.0-0. 9 high Not Available [facility] (Outpatient) [address] [place], [address], 03/21/2021 15:44:51 03/21/20 21 03/21/2021 CBC w/ auto diff absolute neuts 1.53 K/uL 1.80-7 .70 low Not Available [facility] (Outpatient) [address] [place], [address], 03/21/2021 15:44:51 03/21/20 21 03/21/2021 CBC w/ auto diff absolute lymphs 1.34 K/uL 1.00-3 .10 Not Available [facility] (Outpatient) [address] [place], [address], 03/21/2021 15:44:51 03/21/20 21 03/21/2021 CBC w/ auto diff absolute monos 0.31 K/uL 0.20-0 .80 Not Available [facility] (Outpatient) [address] [place] [address], [address], 03/21/2021 15:44:51 03/21/20 21 03/21/2021 CBC w/ auto diff absolute eos 0.02 K/uL 0.00-0 .80 Not Available [facility] (Outpatient) [address] [place], [address], 03/21/2021 15:44:51 03/21/20 21 03/21/2021 CBC w/ auto diff absolute basos 0.03 K/uL 0.00-0 .09 Not Available [facility] (Outpatient) [address] [place] [address], [address], 03/21/2021 15:44:51 03/21/20 21 03/21/2021 CBC w/ auto diff granulocytes , immature 0.04 K/uL 0.00-0 .05 Not Available [facility] (Outpatient) [address] [place], [address], 03/21/2021 15:44:51 03/21/20 21 03/21/2021 BMP, blood sodium 146 mmol/ L 133-14 6 Not Available [facility] (Outpatient) [address] [place], [address], 03/21/2021 16:06:28 03/21/20 21 03/21/2021 BMP, blood chloride 107 mmol/ L 96-108 Not Available [facility] (Outpatient) [address] [place], [address], 03/21/2021 16:06:28 03/21/20 21 03/21/2021 BMP, blood potassium 4.5 mmol/ L 3.3-5. 1 Not Available [facility] (Outpatient) [address] [place], [address], 03/21/2021 16:06:28 03/21/20 21 03/21/2021 BMP, blood CO2 27 mmol/ L 21-35 Not Available [facility] (Outpatient) [address] [place], [address], 03/21/2021 16:06:28 03/21/20 21 03/21/2021 BMP, blood BUN 16 mg/dL 6-19 Not Available [facility] (Outpatient) [address] [place], [address], 03/21/2021 16:06:28 03/21/20 21 03/21/2021 BMP, blood creatinine 0.70 mg/dL 0.5-1. 5 Not Available [facility] (Outpatient) [address] [place], [address], 03/21/2021 16:06:28 03/21/20 21 03/21/2021 BMP, blood glucose 82 mg/dL 70-99 Not Available [facility] (Outpatient) [address] [place], [address], 03/21/2021 16:06:28 03/21/20 21 03/21/2021 BMP, blood calcium 9.1 mg/dL 8.4-10 .3 Not Available [facility] (Outpatient) [address] [place], [address], 03/21/2021 16:06:28 03/21/20 21 03/21/2021 BMP, blood eGFR 103 mL/mi n/1.7 3m2 >59 Estim ated glome rular filtr ation rate calcu lated using the CKD-E PI equat ion. Not Available [facility] (Outpatient) [address] [place], [id number], 03/21/2021 16:06:28 03/21/20 21 03/21/2021 BMP, blood anion gap 17 mmol/ L 10-20 Not Available [facility] (Outpatient) [address] [place], [id number], 03/21/2021 16:06:28 03/21/20 21 03/21/2021 lfts (hepa tic panel ) alkaline phosphatase 58 U/L 39-117 Not Available [facility] (Outpatient) [address] [place], [id number], 03/21/2021 16:06:30 03/21/20 21 03/21/2021 lfts (hepa tic panel ) total bilirubin 0.3 mg/dL 0.0-1. 2 Not Available [facility] (Outpatient) [address] [place], [address], 03/21/2021 16:06:30 03/21/20 21 03/21/2021 lfts (hepa tic panel ) direct bilirubin <0.2 mg/dL 0-0.3 Not Available [facility] (Outpatient) [address] [place], [address], 03/21/2021 16:06:30 03/21/20 21 03/21/2021 [facility]fts (hepa tic panel ) bilirubin (indirect) NOT CALCUL ATED mg/dL 0-1.5 Not Available [facility] (Outpatient) [address] [place], [id number], 03/21/2021 16:06:30 03/21/20 21 03/21/2021 [facility]fts (hepa tic panel ) AST 24 U/L 0-37 Not Available [facility] (Outpatient) [address] [place], [id number], 03/21/2021 16:06:30 03/21/20 21 03/21/2021 [facility]fts (hepa tic panel ) ALT 17 U/L 0-40 Not Available [facility] (Outpatient) [address] [place], [id number], 03/21/2021 16:06:30 03/21/20 21 03/21/2021 [facility]fts (hepa tic panel ) total protein 6.9 g/dL 6.5-8. 0 Not Available [facility] (Outpatient) [address] [place], [address], 03/21/2021 16:06:30 03/21/20 21 03/21/2021 lfts (hepa tic panel ) albumin 4.4 g/dL 3.9-4. 8 Not Available [facility] (Outpatient) [address] [place], [address], 03/21/2021 16:06:30 03/21/20 21 03/21/2021 lfts (hepa tic panel ) globulin 2.5 g/dL 1-4.8 Not Available [facility] (Outpatient) [address] [place], [address], 03/21/2021 16:06:30 03/21/20 21 03/21/2021 lfts (hepa tic panel ) A/G ratio 1.76 ratio 1.00-4 .80 Not Available [facility] (Outpatient) [address] [place], [address], 03/21/2021 16:06:30 03/21/20 21 03/21/2021 aceta minop hen, serum acetaminophe n <5.0 ug/mL 15.0-3 0.0 low Not Available [facility] (Outpatient) [address] [place], [address], 03/21/2021 16:16:22 03/21/20 21 03/21/2021 nereida ol, quant itati ve, serum or plasm a ethanol 327 mg/dL <10 high Not Available [facility] (Outpatient) [address] [place], [address], 03/21/2021 16:16:24 03/21/20 21 03/21/2021 salic ylate , quant itati ve, serum salicylates <0.3 mg/dL 2.8-19 .9 low Not Available [facility] (Outpatient) [address] [place], [address], 03/21/2021 16:16:25 04/24/20 21 04/25/2021 BMP, blood sodium 141 mmol/ L 133-14 6 Not Available [facility] (Outpatient) [address] [place] [address], [address], 04/25/2021 00:24:21 04/24/2004/25/2021 BMP, blood chloride 99 mmol/ L 96-108 Not Available [facility] (Outpatient) [address] [place], [address], 04/25/2021 00:24:21 04/24/20 21 04/25/2021 BMP, blood potassium 3.6 mmol/ L 3.3-5. 1 Not Available [facility] (Outpatient) [address] [place], [address], 04/25/2021 00:24:21 04/24/2004/25/2021 BMP, blood CO2 28 mmol/ L 21-35 Not Available [facility] (Outpatient) [address] [place], [address], 04/25/2021 00:24:21 04/24/2004/25/2021 BMP, blood BUN 16 mg/dL 6-19 Not Available [facility] (Outpatient) [address] [place], [address], 04/25/2021 00:24:21 04/24/2004/25/2021 BMP, blood creatinine 0.70 mg/dL 0.5-1. 5 Not Available [facility] (Outpatient) [address] [place], [address], 04/25/2021 00:24:21 04/24/2004/25/2021 BMP, blood glucose 136 mg/dL 70-99 high Not Available [facility] (Outpatient) [address] [place], [address], 04/25/2021 00:24:21 04/24/2004/25/2021 BMP, blood calcium 8.6 mg/dL 8.4-10 .3 Not Available [facility] (Outpatient) [address] [place], [address], 04/25/2021 00:24:21 04/24/2004/25/2021 BMP, blood eGFR 103 mL/mi n/1.7 3m2 >59 Estim ated glome rular filtr ation rate calcu lated using the CKD-E PI equat ion. Not Available [facility] (Outpatient) [address] [place], [address], 04/25/2021 00:24:21 04/24/2004/25/2021 BMP, blood anion gap 18 mmol/ L 10-20 Not Available [facility] (Outpatient) [address] [place], [address], 04/25/2021 00:24:21 04/24/2004/25/2021 nereida ol, quant itati ve, serum or plasm a ethanol 205 mg/dL <10 high Not Available [facility] (Outpatient) [address] [place], [address], 04/25/2021 00:36:35 05/19/20 21 05/19/2021 COVID TREY ZOE RESPI RATOR Y VIRAL ORDER (PRO) test ordered Rapid COVID has been ordere d Not Available [facility] (Outpatient) [address] [place], [address], 05/19/2021 18:05:22 05/19/20 21 05/19/2021 COVID TREY ZOE RESPI RATOR Y VIRAL ORDER (PRO) specimen source NASAL Not Available [facility] (Outpatient) [address] [place], [address], 05/19/2021 18:05:22 05/19/20 21 05/19/2021 COVID TREY [...] rizat ion can be found at the [employer] links : For Healt hcare Provi ders: https ://ww w.fda .gov/ media /3238 23/do wnloa d For Patie nts: https ://ww w.fda .gov. media /1365 24/do susietim cortesGary Not Available [facility] (Outpatient) [address] [place], [address], 05/19/2021 18:05:22 05/19/20 21 05/19/2021 BASIC METAB OLIC PANEL sodium 144 mmol/ L 133-14 6 Not Available [facility] (Outpatient) [address] [place], [address], 05/19/2021 18:10:58 05/19/20 21 05/19/2021 BASIC METAB OLIC PANEL chloride 103 mmol/ L 96-108 Not Available [facility] (Outpatient) [address] [place], [address], 05/19/2021 18:10:58 05/19/20 21 05/19/2021 BASIC METAB OLIC PANEL potassium 3.5 mmol/ L 3.3-5. 1 Not Available [facility] (Outpatient) [address] [place], [address], 05/19/2021 18:10:58 05/19/20 21 05/19/2021 BASIC METAB OLIC PANEL CO2 23 mmol/ L 21-35 Not Available [facility] (Outpatient) [address] [place], [address], 05/19/2021 18:10:58 05/19/20 21 05/19/2021 BASIC METAB OLIC PANEL BUN 18 mg/dL 6-19 Not Available [facility] (Outpatient) [address] [place], [address], 05/19/2021 18:10:58 05/19/20 21 05/19/2021 BASIC METAB OLIC PANEL creatinine 0.70 mg/dL 0.5-1. 5 Not Available [facility] (Outpatient) [address] [place], [address], 05/19/2021 18:10:58 05/19/20 21 05/19/2021 BASIC METAB OLIC PANEL glucose 76 mg/dL 70-99 Not Available [facility] (Outpatient) [address] [place], [address], 05/19/2021 18:10:58 05/19/20 21 05/19/2021 BASIC METAB OLIC PANEL calcium 8.4 mg/dL 8.4-10 .3 Not Available [facility] (Outpatient) [address] [place], [address], 05/19/2021 18:10:58 05/19/20 21 05/19/2021 BASIC METAB OLIC PANEL eGFR 103 mL/mi n/1.7 3m2 >59 Estim ated glome rular filtr ation rate calcu lated using the CKD-E PI equat ion. Not Available [facility] (Outpatient) [address] [place], [address], 05/19/2021 18:10:58 05/19/20 21 05/19/2021 BASIC METAB OLIC PANEL anion gap 22 mmol/ L 10-20 high Not Available [facility] (Outpatient) [address] [place], [address], 05/19/2021 18:10:58 05/19/20 21 05/19/2021 LFTS (HEPA TIC PANEL ) alkaline phosphatase 52 U/L 39-117 Not Available [facility] (Outpatient) [address] [place], [address], 05/19/2021 18:11:00 05/19/20 21 05/19/2021 LFTS (HEPA TIC PANEL ) total bilirubin 0.3 mg/dL 0.0-1. 2 Not Available [facility] (Outpatient) [address] [place], [address], 05/19/2021 18:11:00 05/19/20 21 05/19/2021 LFTS (HEPA TIC PANEL ) direct bilirubin <0.2 mg/dL 0-0.3 Not Available [facility] (Outpatient) [address] [place], [address], 05/19/2021 18:11:00 05/19/20 21 05/19/2021 LFTS (HEPA TIC PANEL ) bilirubin (indirect) NOT CALCUL ATED mg/dL 0-1.5 Not Available [facility] (Outpatient) [address] [place], [address], 05/19/2021 18:11:00 05/19/20 21 05/19/2021 LFTS (HEPA TIC PANEL ) AST 28 U/L 0-37 Not Available [facility] (Outpatient) [address] [place], [address], 05/19/2021 18:11:00 05/19/20 21 05/19/2021 LFTS (HEPA TIC PANEL ) ALT 16 U/L 0-40 Not Available [facility] (Outpatient) [address] [place], [address], 05/19/2021 18:11:00 05/19/20 21 05/19/2021 LFTS (HEPA TIC PANEL ) total protein 6.6 g/dL 6.5-8. 0 Not Available [facility] (Outpatient) [address] [place], [address], 05/19/2021 18:11:00 05/19/20 21 05/19/2021 LFTS (HEPA TIC PANEL ) albumin 4.3 g/dL 3.9-4. 8 Not Available [facility] (Outpatient) [address] [place], [address], 05/19/2021 18:11:00 05/19/20 21 05/19/2021 LFTS (HEPA TIC PANEL ) globulin 2.3 g/dL 1-4.8 Not Available [facility] (Outpatient) [address] [place], [address], 05/19/2021 18:11:00 05/19/20 21 05/19/2021 LFTS (HEPA TIC PANEL ) A/G ratio 1.87 ratio 1.00-4 .80 Not Available [facility] (Outpatient) [address] [place], [address], 05/19/2021 18:11:00 05/19/20 21 05/19/2021 ACETA MINOP HEN LEVEL acetaminophe n <5.0 ug/mL 15.0-3 0.0 low Not Available [facility] (Outpatient) [address] [place], [address], 05/19/2021 18:13:52 05/19/20 21 05/19/2021 NEREIDA OL, BLOOD ethanol 390 mg/dL <10 high Not Available [facility] (Outpatient) [address] [place], [address], 05/19/2021 18:13:54 05/19/20 21 05/19/2021 SALIC YLATE S salicylates <0.3 mg/dL 2.8-19 .9 low Not Available [facility] (Outpatient) [address] [place], [address], 05/19/2021 18:13:55 05/19/20 21 05/19/2021 TOXIC OLOGY SCREE N, URINE urine cannabinoids NONE DETECT ED none detect ed Cutof f: 50 ng/mL Not Available [facility] (Outpatient) [address] [place], [address], 05/19/2021 18:19:37 05/19/20 21 05/19/2021 TOXIC OLOGY SCREE N, URINE urine cocaine metab NONE DETECT ED none detect ed Cutof f: 300 ng/mL Not Available [facility] (Outpatient) [address] [place], [address], 05/19/2021 18:19:37 05/19/20 21 05/19/2021 TOXIC OLOGY SCREE N, URINE urine amphetamines NONE DETECT ED none detect ed Cutof f: 1000 ng/mL Not Available [facility] (Outpatient) [address] [place], [address], 05/19/2021 18:19:37 05/19/20 21 05/19/2021 TOXIC OLOGY SCREE N, URINE urine methadone NONE DETECT ED none detect ed Cutof f: 300 ng/mL Not Available [facility] (Outpatient) [address] [place], [address], 05/19/2021 18:19:37 05/19/20 21 05/19/2021 TOXIC OLOGY SCREE N, URINE urine opiates NONE DETECT ED none detect ed Cutof f: 300 ng/mL Not Available [facility] (Outpatient) [address] [place], [address], 05/19/2021 18:19:37 05/19/20 21 05/19/2021 TOXIC OLOGY SCREE N, URINE urine phencyclidin e NONE DETECT ED none detect ed Cutof f: 25 ng/mL Not Available [facility] (Outpatient) [address] [place], [address], 05/19/2021 18:19:37 05/19/20 21 05/19/2021 TOXIC OLOGY SCREE N, URINE urine oxycodone NONE DETECT ED none detect ed Cutof f: 300 ng/ml Not Available [facility] (Outpatient) [address] [place], [address], 05/19/2021 18:19:37 05/19/20 21 05/19/2021 TOXIC OLOGY SCREE N, URINE urine barbiturates NONE DETECT ED none detect ed Cutof f: 200 ng/mL Not Available [facility] (Outpatient) [address] [place], [address], 05/19/2021 18:19:37 05/19/20 21 05/19/2021 TOXIC OLOGY SCREE N, URINE urine benzodiazepi ne NONE DETECT ED none detect ed Cutof f: 200 ng/mL Not Available [facility] (Outpatient) [address] [place] [address], [address], 05/19/2021 18:19:37 05/19/20 21 05/19/2021 TOXIC OLOGY SCREE N, URINE urine buprenorphin e NONE DETECT ED none detect ed Cutof f: 5 ng/mL INTER PRETA TION FOR TOXIC OLOGY PANEL : Thes e resul ts are uncon firme d and shoul d be used for Medic al Treat ment purpo ses only. Not Available [facility] (Outpatient) [address] [place] [address], [id number], 05/19/2021 18:19:37 05/19/20 21 05/19/2021 CBC AND DIFFE RENTI AL WBC 4.03 K/uL 4.00-1 1.00 Not Available [facility] (Outpatient) [address] [place] [address], [id number], 05/19/2021 18:42:33 05/19/20 21 05/19/2021 CBC AND DIFFE RENTI AL RBC 4.69 M/uL 3.90-5 .69 Not Available [facility] (Outpatient) [address] [place] [address], [address], 05/19/2021 18:42:33 05/19/20 21 05/19/2021 CBC AND DIFFE RENTI AL HGB 15.7 g/dL 12.4-1 7.3 Not Available [facility] (Outpatient) [address] [place] [address], [address], 05/19/2021 18:42:33 05/19/20 21 05/19/2021 CBC AND DIFFE RENTI AL HCT 44.0 % 37.0-5 1.0 Not Available [facility] (Outpatient) [address] [place] [address], [id number], 05/19/2021 18:42:33 05/19/20 21 05/19/2021 CBC AND DIFFE RENTI AL plt 194 K/uL 140-43 0 Not Available [facility] (Outpatient) [address] [place], [address], 05/19/2021 18:42:33 05/19/20 21 05/19/2021 CBC AND DIFFE RENTI AL MCV 93.8 fL 78.0-9 7.0 Not Available [facility] (Outpatient) [address] [place], [address], 05/19/2021 18:42:33 05/19/20 21 05/19/2021 CBC AND DIFFE RENTI AL MCH 33.5 pg 25.0-3 3.0 high Not Available [facility] (Outpatient) [address] [place], [address], 05/19/2021 18:42:33 05/19/20 21 05/19/2021 CBC AND DIFFE RENTI AL MCHC 35.7 g/dL 32.0-3 6.0 Not Available [facility] (Outpatient) [address] [place], [address], 05/19/2021 18:42:33 05/19/20 21 05/19/2021 CBC AND DIFFE RENTI AL RDW 14.0 % 11.0-1 5.0 Not Available [facility] (Outpatient) [address] [place], [address], 05/19/2021 18:42:33 05/19/20 21 05/19/2021 CBC AND DIFFE RENTI AL MPV 8.2 fL 8.4-12 .8 low Not Available [facility] (Outpatient) [address] [place] [address], [id number], 05/19/2021 18:42:33 05/19/20 21 05/19/2021 CBC AND DIFFE RENTI AL NRBC 0.00 /100_ WBCs 0 Not Available [facility] (Outpatient) [address] [place], [address], 05/19/2021 18:42:33 05/19/20 21 05/19/2021 CBC AND DIFFE RENTI AL absolute NRBC 0.00 K/uL 0 Not Available [facility] (Outpatient) [address] [place], [address], 05/19/2021 18:42:33 05/19/20 21 05/19/2021 CBC AND DIFFE RENTI AL diff method Auto Not Available [facility] (Outpatient) [address] [place], [address], 05/19/2021 18:42:33 05/19/20 21 05/19/2021 CBC AND DIFFE RENTI AL neuts 58.9 % 43.0-7 5.0 Not Available [facility] (Outpatient) [address] [place], [address], 05/19/2021 18:42:33 05/19/20 21 05/19/2021 CBC AND DIFFE RENTI AL lymphs 31.0 % 18.2-4 7.4 Not Available [facility] (Outpatient) [address] [place], [address], 05/19/2021 18:42:33 05/19/20 21 05/19/2021 CBC AND DIFFE RENTI AL monos 8.7 % 4.00-1 1.00 Not Available [facility] (Outpatient) [address] [place], [address], 05/19/2021 18:42:33 05/19/20 21 05/19/2021 CBC AND DIFFE RENTI AL eos 0.2 % 0.0-8. 0 Not Available [facility] (Outpatient) [address] [place], [address], 05/19/2021 18:42:33 05/19/20 21 05/19/2021 CBC AND DIFFE RENTI AL basos 0.5 % 0.0-2. 0 Not Available [facility] (Outpatient) [address] [place], [address], 05/19/2021 18:42:33 05/19/20 21 05/19/2021 CBC AND DIFFE RENTI AL granulocytes , immature (%) 0.7 % 0.0-0. 9 Not Available [facility] (Outpatient) [address] [place], [address], 05/19/2021 18:42:33 05/19/20 21 05/19/2021 CBC AND DIFFE RENTI AL absolute neuts 2.37 K/uL 1.80-7 .70 Not Available [facility] (Outpatient) [address] [place] [address], [id number], 05/19/2021 18:42:33 05/19/20 21 05/19/2021 CBC AND DIFFE RENTI AL absolute lymphs 1.25 K/uL 1.00-3 .10 Not Available [facility] (Outpatient) [address] [place] [address], [address], 05/19/2021 18:42:33 05/19/20 21 05/19/2021 CBC AND DIFFE RENTI AL absolute monos 0.35 K/uL 0.20-0 .80 Not Available [facility] (Outpatient) [address] [place], [address], 05/19/2021 18:42:33 05/19/20 21 05/19/2021 CBC AND DIFFE RENTI AL absolute eos 0.01 K/uL 0.00-0 .80 Not Available [facility] (Outpatient) [address] [place] [address], [address], 05/19/2021 18:42:33 05/19/20 21 05/19/2021 CBC AND DIFFE RENTI AL absolute basos 0.02 K/uL 0.00-0 .09 Not Available [facility] (Outpatient) [address] [place], [address], 05/19/2021 18:42:33 05/19/20 21 05/19/2021 CBC AND DIFFE RENTI AL granulocytes , immature 0.03 K/uL 0.00-0 .05 Not Available [facility] (Outpatient) [address] [place], [address], 05/19/2021 18:42:33 07/04/20 21 07/04/2021 POCT GLUCO SE whole blood glucose 117 mg/dL 70-99 high Not Available [facility] (Outpatient) [address] [place], [address], 07/04/2021 18:27:24 06/25/20 22 06/25/2022 POCT GLUCO SE whole blood glucose 73 mg/dL 70-99 Not Available [facility] (Outpatient) [address] [place], [address], 06/25/2022 11:23:43 07/14/20 22 07/14/2022 CBC AND DIFFE RENTI AL WBC 6.93 K/uL 4.00-1 1.00 Not Available [facility] (Outpatient) [address] [place] [address], [id number], 07/14/2022 12:49:57 07/14/20 22 07/14/2022 CBC AND DIFFE RENTI AL RBC 4.89 M/uL 3.90-5 .69 Not Available [facility] (Outpatient) [address] [place] [address], [id number], 07/14/2022 12:49:57 07/14/20 22 07/14/2022 CBC AND DIFFE RENTI AL HGB 15.8 g/dL 12.4-1 7.3 Not Available [facility] (Outpatient) [address] [place], [address], 07/14/2022 12:49:57 07/14/20 22 07/14/2022 CBC AND DIFFE RENTI AL HCT 46.0 % 37.0-5 1.0 Not Available [facility] (Outpatient) [address] [place], [address], 07/14/2022 12:49:57 07/14/20 22 07/14/2022 CBC AND DIFFE RENTI AL plt 278 K/uL 140-43 0 Not Available [facility] (Outpatient) [address] [place], [address], 07/14/2022 12:49:57 07/14/20 22 07/14/2022 CBC AND DIFFE RENTI AL MCV 94.1 fL 78.0-9 7.0 Not Available [facility] (Outpatient) [address] [place] [address], [address], 07/14/2022 12:49:57 07/14/20 22 07/14/2022 CBC AND DIFFE RENTI AL MCH 32.3 pg 25.0-3 3.0 Not Available [facility] (Outpatient) [address] [place] [address], [address], 07/14/2022 12:49:57 07/14/20 22 07/14/2022 CBC AND DIFFE RENTI AL MCHC 34.3 g/dL 32.0-3 6.0 Not Available [facility] (Outpatient) [address] [place], [address], 07/14/2022 12:49:57 07/14/20 22 07/14/2022 CBC AND DIFFE RENTI AL RDW 14.6 % 11.0-1 5.0 Not Available [facility] (Outpatient) [address] [place] [address], [address], 07/14/2022 12:49:57 07/14/20 22 07/14/2022 CBC AND DIFFE RENTI AL MPV 7.9 fL 8.4-12 .8 low Not Available [facility] (Outpatient) [address] [place], [address], 07/14/2022 12:49:57 07/14/20 22 07/14/2022 CBC AND DIFFE RENTI AL diff method Auto Not Available [facility] (Outpatient) [address] [place], [address], 07/14/2022 12:49:57 07/14/20 22 07/14/2022 CBC AND DIFFE RENTI AL neuts 72.3 % 43.0-7 5.0 Not Available [facility] (Outpatient) [address] [place], [address], 07/14/2022 12:49:57 07/14/20 22 07/14/2022 CBC AND DIFFE RENTI AL lymphs 18.5 % 18.2-4 7.4 Not Available [facility] (Outpatient) [address] [place], [address], 07/14/2022 12:49:57 07/14/20 22 07/14/2022 CBC AND DIFFE RENTI AL monos 6.8 % 4.00-1 1.00 Not Available [facility] (Outpatient) [address] [place], [address], 07/14/2022 12:49:57 07/14/20 22 07/14/2022 CBC AND DIFFE RENTI AL eos 0.4 % 0.0-8. 0 Not Available [facility] (Outpatient) [address] [place], [address], 07/14/2022 12:49:57 07/14/20 22 07/14/2022 CBC AND DIFFE RENTI AL basos 1.0 % 0.0-2. 0 Not Available [facility] (Outpatient) [address] [place], [address], 07/14/2022 12:49:57 07/14/20 22 07/14/2022 CBC AND DIFFE RENTI AL granulocytes , immature (%) 1.0 % 0.0-0. 9 high Not Available [facility] (Outpatient) [address] [place], [address], 07/14/2022 12:49:57 07/14/20 22 07/14/2022 CBC AND DIFFE RENTI AL absolute neuts 5.01 K/uL 1.80-7 .70 Not Available [facility] (Outpatient) [address] [place], [address], 07/14/2022 12:49:57 07/14/20 22 07/14/2022 CBC AND DIFFE RENTI AL absolute lymphs 1.28 K/uL 1.00-3 .10 Not Available [facility] (Outpatient) [address] [place], [address], 07/14/2022 12:49:57 07/14/20 22 07/14/2022 CBC AND DIFFE RENTI AL absolute monos 0.47 K/uL 0.20-0 .80 Not Available [facility] (Outpatient) [address] [place], [address], 07/14/2022 12:49:57 07/14/20 22 07/14/2022 CBC AND DIFFE RENTI AL absolute eos 0.03 K/uL 0.00-0 .80 Not Available [facility] (Outpatient) [address] [place], [address], 07/14/2022 12:49:57 07/14/2007/14/2022 CBC AND DIFFE RENTI AL absolute basos 0.07 K/uL 0.00-0 .09 Not Available [facility] (Outpatient) [address] [place] [address], [address], 07/14/2022 12:49:57 07/14/20 22 07/14/2022 CBC AND DIFFE RENTI AL granulocytes , immature 0.07 K/uL 0.00-0 .05 high Not Available [facility] (Outpatient) [address] [place], [address], 07/14/2022 12:49:57 07/14/20 22 07/14/2022 PT-IN R PT 10.7 sec 10.2-1 2.9 Not Available [facility] (Outpatient) [address] [place], [address], 07/14/2022 13:17:26 07/14/20 22 07/14/2022 PT-IN R INR 0.9 0.9-1. 1 Thera peuti c range for oral Vitam in K antag onist s: 2.0-3 .5 Not Available [facility] (Outpatient) [address] [place], [address], 07/14/2022 13:17:26 07/14/20 22 07/14/2022 NEREIDA OL, BLOOD ethanol 347 mg/dL <10 high Not Available [facility] (Outpatient) [address] [place], [address], 07/14/2022 13:18:50 07/14/20 22 07/14/2022 BASIC METAB OLIC PANEL sodium 144 mmol/ L 133-14 6 Not Available [facility] (Outpatient) [address] [place], [address], 07/14/2022 13:26:13 07/14/20 22 07/14/2022 BASIC METAB OLIC PANEL chloride 98 mmol/ L 96-108 Not Available [facility] (Outpatient) [address] [place], [address], 07/14/2022 13:26:13 07/14/20 22 07/14/2022 BASIC METAB OLIC PANEL potassium 3.7 mmol/ L 3.3-5. 1 Not Available [facility] (Outpatient) [address] [place], [address], 07/14/2022 13:26:13 07/14/20 22 07/14/2022 BASIC METAB OLIC PANEL CO2 29 mmol/ L 21-35 Not Available [facility] (Outpatient) [address] [place], [address], 07/14/2022 13:26:13 07/14/20 22 07/14/2022 BASIC METAB OLIC PANEL BUN 17 mg/dL 6-19 Not Available [facility] (Outpatient) [address] [place], [address], 07/14/2022 13:26:13 07/14/20 22 07/14/2022 BASIC METAB OLIC PANEL creatinine 0.70 mg/dL 0.5-1. 5 Not Available [facility] (Outpatient) [address] [place], [address], 07/14/2022 13:26:13 07/14/20 22 07/14/2022 BASIC METAB OLIC PANEL glucose 80 mg/dL 70-99 Not Available [facility] (Outpatient) [address] [place], [address], 07/14/2022 13:26:13 07/14/20 22 07/14/2022 BASIC METAB OLIC PANEL calcium 8.8 mg/dL 8.4-10 .3 Not Available [facility] (Outpatient) [address] [place], [address], 07/14/2022 13:26:13 07/14/20 22 07/14/2022 BASIC METAB OLIC PANEL eGFR 105 mL/mi n/1.7 3m2 >59 Estim ated glome rular filtr ation rate calcu lated using the CKD-E PI refit equat ion. Not Available [facility] (Outpatient) [address] [place], [id number], 07/14/2022 13:26:13 07/14/20 22 07/14/2022 BASIC METAB OLIC PANEL anion gap 21 mmol/ L 10-20 high Not Available [facility] (Outpatient) [address] [place], [address], 07/14/2022 13:26:13 07/14/20 22 07/14/2022 LFTS (HEPA TIC PANEL ) alkaline phosphatase 78 U/L 39-117 Not Available [facility] (Outpatient) [address] [place], [address], 07/14/2022 13:26:15 07/14/20 22 07/14/2022 LFTS (HEPA TIC PANEL ) total bilirubin 0.5 mg/dL 0.0-1. 2 Not Available [facility] (Outpatient) [address] [place], [address], 07/14/2022 13:26:15 07/14/20 22 07/14/2022 LFTS (HEPA TIC PANEL ) direct bilirubin <0.2 mg/dL 0-0.3 Not Available [facility] (Outpatient) [address] [place], [address], 07/14/2022 13:26:15 07/14/20 22 07/14/2022 LFTS (HEPA TIC PANEL ) bilirubin (indirect) NOT CALCUL ATED mg/dL 0-1.5 Not Available [facility] (Outpatient) [address] [place], [address], 07/14/2022 13:26:15 07/14/20 22 07/14/2022 LFTS (HEPA TIC PANEL ) AST 56 U/L 0-37 high Not Available [facility] (Outpatient) [address] [place], [address], 07/14/2022 13:26:15 07/14/20 22 07/14/2022 LFTS (HEPA TIC PANEL ) ALT 39 U/L 0-40 Not Available [facility] (Outpatient) [address] [place], [address], 07/14/2022 13:26:15 07/14/20 22 07/14/2022 LFTS (HEPA TIC PANEL ) total protein 6.9 g/dL 6.5-8. 0 Not Available [facility] (Outpatient) [address] [place], [address], 07/14/2022 13:26:15 07/14/20 22 07/14/2022 LFTS (HEPA TIC PANEL ) albumin 4.8 g/dL 3.9-4. 8 Not Available [facility] (Outpatient) [address] [place], [address], 07/14/2022 13:26:15 07/14/20 22 07/14/2022 LFTS (HEPA TIC PANEL ) globulin 2.1 g/dL 1-4.8 Not Available [facility] (Outpatient) [address] [place], [address], 07/14/2022 13:26:15 07/14/20 22 07/14/2022 LFTS (HEPA TIC PANEL ) A/G ratio 2.29 ratio 1.00-4 .80 Not Available [facility] (Outpatient) [address] [place], [address], 07/14/2022 13:26:15 07/14/20 22 07/14/2022 MAGNE SIUM magnesium 1.9 mg/dL 1.6-2. 6 Not Available [facility] (Outpatient) [address] [place], [address], 07/14/2022 13:26:16 07/24/20 22 07/24/2022 POCT GLUCO SE whole blood glucose 93 mg/dL 70-99 Not Available [facility] (Outpatient) [address] [place], [address], 07/24/2022 09:26:57 07/24/20 22 07/24/2022 BASIC METAB OLIC PANEL sodium 144 mmol/ L 133-14 6 Not Available [facility] (Outpatient) [address] [place], [address], 07/24/2022 10:48:25 07/24/20 22 07/24/2022 BASIC METAB OLIC PANEL chloride 101 mmol/ L 96-108 Not Available [facility] (Outpatient) [address] [place], [address], 07/24/2022 10:48:25 07/24/20 22 07/24/2022 BASIC METAB OLIC PANEL potassium 3.9 mmol/ L 3.3-5. 1 Speci men sligh tly hemol yzed, resul t may be false ly eleva lucho. Not Available [facility] (Outpatient) [address] [place], [address], 07/24/2022 10:48:25 07/24/20 22 07/24/2022 BASIC METAB OLIC PANEL CO2 27 mmol/ L 21-35 Not Available [facility] (Outpatient) [address] [place], [address], 07/24/2022 10:48:25 07/24/20 22 07/24/2022 BASIC METAB OLIC PANEL BUN 20 mg/dL 6-19 high Not Available [facility] (Outpatient) [address] [place], [address], 07/24/2022 10:48:25 07/24/20 22 07/24/2022 BASIC METAB OLIC PANEL creatinine 0.70 mg/dL 0.5-1. 5 Not Available [facility] (Outpatient) [address] [place], [address], 07/24/2022 10:48:25 07/24/20 22 07/24/2022 BASIC METAB OLIC PANEL glucose 88 mg/dL 70-99 Not Available [facility] (Outpatient) [address] [place], [address], 07/24/2022 10:48:25 07/24/20 22 07/24/2022 BASIC METAB OLIC PANEL calcium 8.0 mg/dL 8.4-10 .3 low Not Available [facility] (Outpatient) [address] [place], [address], 07/24/2022 10:48:25 07/24/20 22 07/24/2022 BASIC METAB OLIC PANEL eGFR 105 mL/mi n/1.7 3m2 >59 Estim ated glome rular filtr ation rate calcu lated using the CKD-E PI refit equat ion. Not Available [facility] (Outpatient) [address] [place], [address], 07/24/2022 10:48:25 07/24/20 22 07/24/2022 BASIC METAB OLIC PANEL anion gap 20 mmol/ L 10-20 Not Available [facility] (Outpatient) [address] [place], [address], 07/24/2022 10:48:25 07/24/20 22 07/24/2022 LIPAS E lipase 57 U/L 16-63 Not Available [facility] (Outpatient) [address] [place], [address], 07/24/2022 10:48:27 07/24/20 22 07/24/2022 LFTS (HEPA TIC PANEL ) alkaline phosphatase 60 U/L 39-117 Not Available [facility] (Outpatient) [address] [place], [address], 07/24/2022 10:48:28 07/24/20 22 07/24/2022 LFTS (HEPA TIC PANEL ) total bilirubin 0.5 mg/dL 0.0-1. 2 Not Available [facility] (Outpatient) [address] [place], [address], 07/24/2022 10:48:28 07/24/20 22 07/24/2022 LFTS (HEPA TIC PANEL ) direct bilirubin <0.2 mg/dL 0-0.3 Not Available [facility] (Outpatient) [address] [place], [address], 07/24/2022 10:48:28 07/24/20 22 07/24/2022 LFTS (HEPA TIC PANEL ) bilirubin (indirect) NOT CALCUL ATED mg/dL 0-1.5 Not Available [facility] (Outpatient) [address] [place], [address], 07/24/2022 10:48:28 07/24/20 22 07/24/2022 LFTS (HEPA TIC PANEL ) AST 93 U/L 0-37 high Not Available [facility] (Outpatient) [address] [place], [address], 07/24/2022 10:48:28 07/24/20 22 07/24/2022 LFTS (HEPA TIC PANEL ) ALT 56 U/L 0-40 high Not Available [facility] (Outpatient) [address] [place], [address], 07/24/2022 10:48:28 07/24/20 22 07/24/2022 LFTS (HEPA TIC PANEL ) total protein 5.9 g/dL 6.5-8. 0 low Not Available [facility] (Outpatient) [address] [place], [address], 07/24/2022 10:48:28 07/24/20 22 07/24/2022 LFTS (HEPA TIC PANEL ) albumin 4.1 g/dL 3.9-4. 8 Not Available [facility] (Outpatient) [address] [place], [address], 07/24/2022 10:48:28 07/24/20 22 07/24/2022 LFTS (HEPA TIC PANEL ) globulin 1.8 g/dL 1-4.8 Not Available [facility] (Outpatient) [address] [place], [address], 07/24/2022 10:48:28 07/24/20 22 07/24/2022 LFTS (HEPA TIC PANEL ) A/G ratio 2.28 ratio 1.00-4 .80 Not Available [facility] (Outpatient) [address] [place], [address], 07/24/2022 10:48:28 07/24/20 22 07/24/2022 MAGNE SIUM magnesium 1.9 mg/dL 1.6-2. 6 Not Available [facility] (Outpatient) [address] [place], [address], 07/24/2022 10:48:29 07/24/20 22 07/24/2022 LACTA TE lactate 3.39 mmol/ L 0.50-2 .20 critical high Criti lydia value : Resul ts smalls d to and read back by: liana oro ed Not Available [facility] (Outpatient) [address] [place], [address], 07/24/2022 10:53:16 07/24/20 22 07/24/2022 VENOU S BLOOD GAS pH, venous 7.36 7.31-7 .41 Not Available [facility] (Outpatient) [address] [place], [address], 07/24/2022 10:53:18 07/24/20 22 07/24/2022 VENOU S BLOOD GAS pCO2, venous 52.50 mmHg 41.00- 51.00 high Not Available [facility] (Outpatient) [address] [place], [address], 07/24/2022 10:53:18 07/24/20 22 07/24/2022 VENOU S BLOOD GAS pO2, venous 68.20 mmHg 35.00- 40.00 high Not Available [facility] (Outpatient) [address] [place], [address], 07/24/2022 10:53:18 07/24/20 22 07/24/2022 VENOU S BLOOD GAS HCO3, venous 29 mmol/ L 23-28 high Not Available [facility] (Outpatient) [address] [place], [address], 07/24/2022 10:53:18 07/24/20 22 07/24/2022 VENOU S BLOOD GAS base excess venous 2.0 mmol/ L 0.0-3. 0 Not Available [facility] (Outpatient) [address] [place], [address], 07/24/2022 10:53:18 07/24/20 22 07/24/2022 VENOU S BLOOD GAS so2, venous 90.80 % 60.00- 80.00 high Not Available [facility] (Outpatient) [address] [place], [address], 07/24/2022 10:53:18 07/24/20 22 07/24/2022 VENOU S BLOOD GAS fo2hb, venous 89.40 % 71.00- 74.00 high Not Available [facility] (Outpatient) [address] [place], [address], 07/24/2022 10:53:18 07/24/20 22 07/24/2022 VENOU S BLOOD GAS carboxy HGB 1.30 % 0-1.50 Not Available [facility] (Outpatient) [address] [place], [address], 07/24/2022 10:53:18 07/24/20 22 07/24/2022 VENOU S BLOOD GAS methgb % 0.20 % 0-1.50 Not Available [facility] (Outpatient) [address] [place], [address], 07/24/2022 10:53:18 07/24/20 22 07/24/2022 CBC AND DIFFE RENTI AL WBC 3.10 K/uL 4.00-1 1.00 low Not Available [facility] (Out[facility]) [address] [place] [address], [address], 07/24/2022 10:54:18 07/24/20 22 07/24/2022 CBC AND DIFFE RENTI AL RBC 4.56 M/uL 3.90-5 .69 Not Available [facility] (Outpatient) [address] [place] [address], [id number], 07/24/2022 10:54:18 07/24/20 22 07/24/2022 CBC AND DIFFE RENTI AL HGB 14.8 g/dL 12.4-1 7.3 Not Available [facility] (Outpatient) [address] [place], [address], 07/24/2022 10:54:18 07/24/20 22 07/24/2022 CBC AND DIFFE RENTI AL HCT 43.1 % 37.0-5 1.0 Not Available [facility] (Outpatient) [address] [place] [address], [address], 07/24/2022 10:54:18 07/24/20 22 07/24/2022 CBC AND DIFFE RENTI AL plt 113 K/uL 140-43 0 low Wright e in previ ous value s noted . Not Available [facility] (Outpatient) [address] [place] [address], [address], 07/24/2022 10:54:18 07/24/20 22 07/24/2022 CBC AND DIFFE RENTI AL MCV 94.5 fL 78.0-9 7.0 Not Available [facility] (Outpatient) [address] [place] [address], [id number], 07/24/2022 10:54:18 07/24/20 22 07/24/2022 CBC AND DIFFE RENTI AL MCH 32.5 pg 25.0-3 3.0 Not Available [facility] (Outpatient) [address] [place], [address], 07/24/2022 10:54:18 07/24/20 22 07/24/2022 CBC AND DIFFE RENTI AL MCHC 34.3 g/dL 32.0-3 6.0 Not Available [facility] (Outpatient) [address] [place] [address], [id number], 07/24/2022 10:54:18 07/24/20 22 07/24/2022 CBC AND DIFFE RENTI AL RDW 15.7 % 11.0-1 5.0 high Not Available [facility] (Outpatient) [address] [place] [address], [address], 07/24/2022 10:54:18 07/24/20 22 07/24/2022 CBC AND DIFFE RENTI AL MPV 8.3 fL 8.4-12 .8 low Not Available [facility] (Outpatient) [address] [place] [address], [address], 07/24/2022 10:54:18 07/24/20 22 07/24/2022 CBC AND DIFFE RENTI AL diff method Auto Not Available [facility] (Outpatient) [address] [place] [address], [id number], 07/24/2022 10:54:18 07/24/20 22 07/24/2022 CBC AND DIFFE RENTI AL neuts 62.9 % 43.0-7 5.0 Not Available [facility] (Outpatient) [address] [place], [address], 07/24/2022 10:54:18 07/24/20 22 07/24/2022 CBC AND DIFFE RENTI AL lymphs 18.4 % 18.2-4 7.4 Not Available [facility] (Outpatient) [address] [place], [address], 07/24/2022 10:54:18 07/24/20 22 07/24/2022 CBC AND DIFFE RENTI AL monos 15.8 % 4.00-1 1.00 high Not Available [facility] (Outpatient) [address] [place], [address], 07/24/2022 10:54:18 07/24/20 22 07/24/2022 CBC AND DIFFE RENTI AL eos 1.3 % 0.0-8. 0 Not Available [facility] (Outpatient) [address] [place], [address], 07/24/2022 10:54:18 07/24/20 22 07/24/2022 CBC AND DIFFE RENTI AL basos 1.0 % 0.0-2. 0 Not Available [facility] (Outpatient) [address] [place] [address], [address], 07/24/2022 10:54:18 07/24/20 22 07/24/2022 CBC AND DIFFE RENTI AL granulocytes , immature (%) 0.6 % 0.0-0. 9 Not Available [facility] (Outpatient) [address] [place] [address], [id number], 07/24/2022 10:54:18 07/24/20 22 07/24/2022 CBC AND DIFFE RENTI AL absolute neuts 1.95 K/uL 1.80-7 .70 Not Available [facility] (Outpatient) [address] [place] [address], [id number], 07/24/2022 10:54:18 07/24/20 22 07/24/2022 CBC AND DIFFE RENTI AL absolute lymphs 0.57 K/uL 1.00-3 .10 low Not Available [facility] (Outpatient) [address] [place] [address], [id number], 07/24/2022 10:54:18 07/24/20 22 07/24/2022 CBC AND DIFFE RENTI AL absolute monos 0.49 K/uL 0.20-0 .80 Not Available [facility] (Outpatient) [address] [place], [address], 07/24/2022 10:54:18 07/24/20 22 07/24/2022 CBC AND DIFFE RENTI AL absolute eos 0.04 K/uL 0.00-0 .80 Not Available [facility] (Outpatient) [address] [place], [address], 07/24/2022 10:54:18 07/24/20 22 07/24/2022 CBC AND DIFFE RENTI AL absolute basos 0.03 K/uL 0.00-0 .09 Not Available [facility] (Outpatient) [address] [place], [address], 07/24/2022 10:54:18 07/24/20 22 07/24/2022 CBC AND DIFFE RENTI AL granulocytes , immature 0.02 K/uL 0.00-0 .05 Not Available [facility] (Outpatient) [address] [place], [address], 07/24/2022 10:54:18 07/24/20 22 07/24/2022 PT-IN R PT 10.9 sec 10.2-1 2.9 Not Available [facility] (Outpatient) [address] [place], [address], 07/24/2022 11:28:16 07/24/20 22 07/24/2022 PT-IN R INR 1.0 0.9-1. 1 Thera peuti c range for oral Vitam in K antag onist s: 2.0-3 .5 Not Available [facility] (Outpatient) [address] [place], [address], 07/24/2022 11:28:16 07/24/20 22 07/24/2022 LAB ADD ON contact information [id number] Not Available [facility] (Outpatient) [address] [place], [address], 07/24/2022 11:45:46 07/24/20 22 07/24/2022 LAB ADD ON test requested ETHANO L Not Available [facility] (Outpatient) [address] [place], [address], 07/24/2022 11:45:46 07/24/20 22 07/24/2022 LAB ADD ON status Add on order being proce ssed. Floor or provi jimmy will be notif ied if testi ng canno t be perfo rmed Not Available [facility] (Outpatient) [address] [place], [address], 07/24/2022 11:45:46 07/24/20 22 07/24/2022 LACTA TE lactate 4.21 mmol/ L 0.50-2 .20 critical high Criti lydia value : Resul ts smalls d to and read back by: michael bentley ed [id number] Not Available [facility] (Outpatient) [address] [place], [address], 07/24/2022 12:35:04 07/24/20 22 07/24/2022 NEREIDA OL, BLOOD ethanol 288 mg/dL <10 high Not Available [facility] (Outpatient) [address] [place], [address], 07/24/2022 13:04:37 07/24/20 22 07/24/2022 COVID TREY ZOE RESPI RATOR Y VIRAL ORDER (PRO) test ordered Rapid COVID has been ordere d Not Available [facility] (Outpatient) [address] [place], [address], 07/24/2022 17:17:25 07/24/20 22 07/24/2022 COVID TREY ZOE RESPI RATOR Y VIRAL ORDER (PRO) specimen source/descr iption NASAL Not Available [facility] (Outpatient) [address] [place], [address], 07/24/2022 17:17:25 07/24/20 22 07/24/2022 COVID TREY [...] 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 Not Available [facility] (Outpatient) [address] [place] [address], [id number], 07/24/2022 17:17:25 10/13/20 23 10/13/2023 CBC AND DIFFE RENTI AL WBC 3.27 K/uL 4.00-1 1.00 low Not Available [facility] (Outpatient) [address] [place] [address], [id number], 10/13/2023 20:02:27 10/13/20 23 10/13/2023 CBC AND DIFFE RENTI AL RBC 4.38 M/uL 3.90-5 .69 Not Available [facility] (Outpatient) [address] [place] [address], [id number], 10/13/2023 20:02:27 10/13/20 23 10/13/2023 CBC AND DIFFE RENTI AL HGB 14.5 g/dL 12.4-1 7.3 Not Available [facility] (Outpatient) [address] [place] [address], [id number], 10/13/2023 20:02:27 10/13/20 23 10/13/2023 CBC AND DIFFE RENTI AL HCT 41.1 % 37.0-5 1.0 Not Available [facility] (Outpatient) [address] [place], [address], 10/13/2023 20:02:27 10/13/20 23 10/13/2023 CBC AND DIFFE RENTI AL plt 232 K/uL 140-43 0 Not Available [facility] (Outpatient) [address] [place], [address], 10/13/2023 20:02:27 10/13/20 23 10/13/2023 CBC AND DIFFE RENTI AL MCV 93.8 fL 78.0-9 7.0 Not Available [facility] (Outpatient) [address] [place], [address], 10/13/2023 20:02:27 10/13/20 23 10/13/2023 CBC AND DIFFE RENTI AL MCH 33.1 pg 25.0-3 3.0 high Not Available [facility] (Outpatient) [address] [place], [address], 10/13/2023 20:02:27 10/13/20 23 10/13/2023 CBC AND DIFFE RENTI AL MCHC 35.3 g/dL 32.0-3 6.0 Not Available [facility] (Outpatient) [address] [place], [address], 10/13/2023 20:02:27 10/13/20 23 10/13/2023 CBC AND DIFFE RENTI AL RDW 13.0 % 11.0-1 5.0 Not Available [facility] (Outpatient) [address] [place], [address], 10/13/2023 20:02:27 10/13/20 23 10/13/2023 CBC AND DIFFE RENTI AL MPV 8.6 fL 8.4-12 .8 Not Available [facility] (Outpatient) [address] [place], [address], 10/13/2023 20:02:27 10/13/20 23 10/13/2023 CBC AND DIFFE RENTI AL diff method Auto Not Available [facility] (Outpatient) [address] [place], [address], 10/13/2023 20:02:27 10/13/20 23 10/13/2023 CBC AND DIFFE RENTI AL neuts 52.0 % 43.0-7 5.0 Not Available [facility] (Outpatient) [address] [place], [address], 10/13/2023 20:02:27 10/13/20 23 10/13/2023 CBC AND DIFFE RENTI AL lymphs 36.1 % 18.2-4 7.4 Not Available [facility] (Outpatient) [address] [place], [address], 10/13/2023 20:02:27 10/13/20 23 10/13/2023 CBC AND DIFFE RENTI AL monos 9.2 % 4.00-1 1.00 Not Available [facility] (Outpatient) [address] [place], [address], 10/13/2023 20:02:27 10/13/20 23 10/13/2023 CBC AND DIFFE RENTI AL eos 1.2 % 0.0-8. 0 Not Available [facility] (Outpatient) [address] [place], [address], 10/13/2023 20:02:27 10/13/20 23 10/13/2023 CBC AND DIFFE RENTI AL basos 0.9 % 0.0-2. 0 Not Available [facility] (Outpatient) [address] [place], [address], 10/13/2023 20:02:27 10/13/20 23 10/13/2023 CBC AND DIFFE RENTI AL granulocytes , immature (%) 0.6 % 0.0-0. 9 Not Available [facility] (Outpatient) [address] [place], [address], 10/13/2023 20:02:27 10/13/20 23 10/13/2023 CBC AND DIFFE RENTI AL absolute neuts 1.70 K/uL 1.80-7 .70 low Not Available [facility] (Outpatient) [address] [place], [address], 10/13/2023 20:02:27 10/13/20 23 10/13/2023 CBC AND DIFFE RENTI AL absolute lymphs 1.18 K/uL 1.00-3 .10 Not Available [facility] (Outpatient) [address] [place], [address], 10/13/2023 20:02:27 10/13/20 23 10/13/2023 CBC AND DIFFE RENTI AL absolute monos 0.30 K/uL 0.20-0 .80 Not Available [facility] (Outpatient) [address] [place], [address], 10/13/2023 20:02:27 10/13/20 23 10/13/2023 CBC AND DIFFE RENTI AL absolute eos 0.04 K/uL 0.00-0 .80 Not Available [facility] (Outpatient) [address] [place], [address], 10/13/2023 20:02:27 10/13/20 23 10/13/2023 CBC AND DIFFE RENTI AL absolute basos 0.03 K/uL 0.00-0 .09 Not Available [facility] (Outpatient) [address] [place], [address], 10/13/2023 20:02:27 10/13/20 23 10/13/2023 CBC AND DIFFE RENTI AL granulocytes , immature 0.02 K/uL 0.00-0 .05 Not Available [facility] (Outpatient) [address] [place], [address], 10/13/2023 20:02:27 10/13/20 23 10/13/2023 TOXIC OLOGY SCREE N, URINE urine cannabinoids NONE DETECT ED none detect ed Cutof f: 50 ng/mL Not Available [facility] (Outpatient) [address] [place], [address], 10/13/2023 20:13:15 10/13/20 23 10/13/2023 TOXIC OLOGY SCREE N, URINE urine cocaine metab NONE DETECT ED none detect ed Cutof f: 300 ng/mL Not Available [facility] (Outpatient) [address] [place], [address], 10/13/2023 20:13:15 10/13/20 23 10/13/2023 TOXIC OLOGY SCREE N, URINE urine amphetamines NONE DETECT ED none detect ed Cutof f: 1000 ng/mL Not Available [facility] (Outpatient) [address] [place], [address], 10/13/2023 20:13:15 10/13/20 23 10/13/2023 TOXIC OLOGY SCREE N, URINE urine methadone NONE DETECT ED none detect ed Cutof f: 300 ng/mL Not Available [facility] (Outpatient) [address] [place], [address], 10/13/2023 20:13:15 10/13/20 23 10/13/2023 TOXIC OLOGY SCREE N, URINE urine opiates NONE DETECT ED none detect ed Cutof f: 300 ng/mL Not Available [facility] (Outpatient) [address] [place], [address], 10/13/2023 20:13:15 10/13/20 23 10/13/2023 TOXIC OLOGY SCREE N, URINE urine phencyclidin e NONE DETECT ED none detect ed Cutof f: 25 ng/mL Not Available [facility] (Outpatient) [address] [place], [address], 10/13/2023 20:13:15 10/13/20 23 10/13/2023 TOXIC OLOGY SCREE N, URINE urine oxycodone NONE DETECT ED none detect ed Cutof f: 300 ng/mL Not Available [facility] (Outpatient) [address] [place], [address], 10/13/2023 20:13:15 10/13/20 23 10/13/2023 TOXIC OLOGY SCREE N, URINE urine barbiturates NONE DETECT ED none detect ed Cutof f: 200 ng/mL Not Available [facility] (Outpatient) [address] [place], [address], 10/13/2023 20:13:15 10/13/20 23 10/13/2023 TOXIC OLOGY SCREE N, URINE urine benzodiazepi ne NONE DETECT ED none detect ed Cutof f: 200 ng/mL Not Available [facility] (Outpatient) [address] [place], [address], 10/13/2023 20:13:15 10/13/20 23 10/13/2023 TOXIC OLOGY SCREE N, URINE urine buprenorphin e NONE DETECT ED none detect ed Cutof f: 5 ng/mL Not Available [facility] (Outpatient) [address] [place], [address], 10/13/2023 20:13:15 10/13/20 23 10/13/2023 TOXIC OLOGY SCREE N, URINE fentanyl, urine NONE DETECT ED none detect ed Cutof f: 5 ng/mL INTER PRETA TION FOR TOXIC OLOGY PANEL : Thes e resul ts are uncon firme d and shoul d be used for Medic al Treat ment purpo ses only. Not Available [facility] (Outpatient) [address] [place], [address], 10/13/2023 20:13:15 10/13/20 23 10/13/2023 BASIC METAB OLIC PANEL sodium 145 mmol/ L 133-14 6 Not Available [facility] (Outpatient) [address] [place], [address], 10/13/2023 20:29:28 10/13/20 23 10/13/2023 BASIC METAB OLIC PANEL chloride 109 mmol/ L 96-108 high Not Available [facility] (Outpatient) [address] [place], [address], 10/13/2023 20:29:28 10/13/20 23 10/13/2023 BASIC METAB OLIC PANEL potassium 3.8 mmol/ L 3.3-5. 1 Not Available [facility] (Outpatient) [address] [place], [address], 10/13/2023 20:29:28 10/13/20 23 10/13/2023 BASIC METAB OLIC PANEL CO2 23 mmol/ L 21-35 Not Available [facility] (Outpatient) [address] [place], [address], 10/13/2023 20:29:28 10/13/20 23 10/13/2023 BASIC METAB OLIC PANEL BUN 12 mg/dL 6-19 Not Available [facility] (Outpatient) [address] [place], [address], 10/13/2023 20:29:28 10/13/20 23 10/13/2023 BASIC METAB OLIC PANEL creatinine 0.80 mg/dL 0.5-1. 5 Not Available [facility] (Outpatient) [address] [place], [address], 10/13/2023 20:29:28 10/13/20 23 10/13/2023 BASIC METAB OLIC PANEL glucose 92 mg/dL 70-99 Not Available [facility] (Outpatient) [address] [place], [address], 10/13/2023 20:29:28 10/13/20 23 10/13/2023 BASIC METAB OLIC PANEL calcium 9.1 mg/dL 8.4-10 .3 Not Available [facility] (Outpatient) [address] [place], [address], 10/13/2023 20:29:28 10/13/20 23 10/13/2023 BASIC METAB OLIC PANEL eGFR 101 mL/mi n/1.7 3m2 >59 Estim ated glome rular filtr ation rate calcu lated using the CKD-E PI refit equat ion. Not Available [facility] (Outpatient) [address] [place], [address], 10/13/2023 20:29:28 10/13/20 23 10/13/2023 BASIC METAB OLIC PANEL anion gap 17 mmol/ L 10-20 Not Available [facility] (Outpatient) [address] [place], [address], 10/13/2023 20:29:28 10/13/20 23 10/13/2023 LFTS (HEPA TIC PANEL ) alkaline phosphatase 48 U/L 39-117 Not Available [facility] (Outpatient) [address] [place], [address], 10/13/2023 20:29:31 10/13/20 23 10/13/2023 LFTS (HEPA TIC PANEL ) total bilirubin <0.2 mg/dL 0.0-1. 2 Not Available [facility] (Outpatient) [address] [place], [address], 10/13/2023 20:29:31 10/13/20 23 10/13/2023 LFTS (HEPA TIC PANEL ) direct bilirubin <0.2 mg/dL 0-0.3 Not Available [facility] (Outpatient) [address] [place], [address], 10/13/2023 20:29:31 10/13/20 23 10/13/2023 LFTS (HEPA TIC PANEL ) bilirubin (indirect) NOT CALCUL ATED mg/dL 0-1.5 Not Available [facility] (Outpatient) [address] [place], [address], 10/13/2023 20:29:31 10/13/20 23 10/13/2023 LFTS (HEPA TIC PANEL ) AST 20 U/L 0-37 Not Available [facility] (Outpatient) [address] [place], [address], 10/13/2023 20:29:31 10/13/20 23 10/13/2023 LFTS (HEPA TIC PANEL ) ALT 18 U/L 0-40 Not Available [facility] (Outpatient) [address] [place], [address], 10/13/2023 20:29:31 10/13/20 23 10/13/2023 LFTS (HEPA TIC PANEL ) total protein 6.8 g/dL 6.5-8. 0 Not Available [facility] (Outpatient) [address] [place], [address], 10/13/2023 20:29:31 10/13/20 23 10/13/2023 LFTS (HEPA TIC PANEL ) albumin 4.7 g/dL 3.9-4. 8 Not Available [facility] (Outpatient) [address] [place], [address], 10/13/2023 20:29:31 10/13/20 23 10/13/2023 LFTS (HEPA TIC PANEL ) globulin 2.1 g/dL 1-4.8 Not Available [facility] (Outpatient) [address] [place], [address], 10/13/2023 20:29:31 10/13/20 23 10/13/2023 LFTS (HEPA TIC PANEL ) A/G ratio 2.24 ratio 1.00-4 .80 Not Available [facility] (Outpatient) [address] [place], [address], 10/13/2023 20:29:31 10/13/20 23 10/13/2023 ACETA MINOP HEN LEVEL acetaminophe n <5.0 ug/mL 15.0-3 0.0 low Not Available [facility] (Outpatient) [address] [place], [address], 10/13/2023 20:33:40 10/13/20 23 10/13/2023 NEREIDA OL, BLOOD ethanol 255 mg/dL <10 high Not Available [facility] (Outpatient) [address] [place], [address], 10/13/2023 20:33:43 10/13/20 23 10/13/2023 SALIC YLATE S salicylates <0.3 mg/dL 2.8-19 .9 low Not Available [facility] (Outpatient) [address] [place], [address], 10/13/2023 20:33:44 09/28/20 17 09/28/2017 audio gram No observ ation record ed. [email or web address] Not Available 2016 10:10:52 10/17/20 17 10/17/2017 XR, shoul jimmy No observ ation record ed. [facility] (Outpt Imaging) [address] [place], [address], 10/24/2017 09:57:50 06/01/20 20 06/01/2020 XR, hip No observ ation record ed. [email or web address] [facility] (Outpt Imaging) [address] [place], [address], 06/02/2020 17:00:04 07/08/20 20 07/08/2020 CT abdom [...] MD 0 CC Recipi ents: Annabelle Rich, DO ALL OPERATOR - Fax Final result ANNABELLE RICH [email or web address] [facility] [address] [place] [address], [address], 07/13/2020 10:46:57 07/08/20 20 07/08/2020 CT, abdom en + pelvi s No observ ation record ed. [email or web address] [address], [address], 07/13/2020 10:46:58 07/09/20 20 07/09/2020 xr abdom [...] n is unchan ged from the CT engraver hand soft metals image with a paucit y of bowel [...] florez MD 0 Final result ANNABELLE RICH [email or web address] [address] [place] [address], [address], 07/13/2020 10:46:58 07/11/20 20 07/11/2020 xr abdom [...] 0 Final result SBO ANNABELLE BRAEDEN [email or web address] [facility] [address] [place] [address], [address], 07/13/2020 10:46:58 03/31/20 21 03/31/2021 xr knee 4 or more views (righ t) This image report has been auto-f inaliz ed and has not been read by a Radiol ogist. Interp retati on has been includ ed in the merged [facility] ter note for this date of servic e. Final result ANNABELLE BRAEDEN [email or web address] [facility] [address] [place] [address], [address], 03/31/2021 11:21:25 05/12/20 22 05/12/2022 CT, cervi [...] MD 2 Final result ANNABELLE HANSONZ [email or web address] [facility] [address] [place] [address] [place], [address], 05/13/2022 07:41:12 05/12/20 22 05/12/2022 CT, head, [...] Ralph i, MD, PhD Signed by: Carlos Rodriguze MD 2 Final result ANNABELLE RICH [facility] [address] [place] [address], [address], 05/13/2022 07:41:13 07/14/20 22 07/14/2022 CT, head, [...] MD 07/14/22 Final result etoh ANNABELLE RICH [facility] [place] [address] [facility] Imaging [address] [place] [address], [address], 07/14/2022 15:29:25 07/24/20 22 07/24/2022 xr chest [...] a rule out pneumo jessica ANNABELLE RICH [facility] [address] [place], [address], 07/25/2022 09:59:45 07/27/20 23 07/27/2023 CT, head, w/o contr ast No observ ation record ed. [facility] (Medical Records) [address] [place], [address], 07/27/2023 13:17:11 07/27/20 23 07/27/2023 XR, chest No observ ation record ed. [facility] (Medical Records) [address] [place], [address], 07/27/2023 13:23:27 10/13/20 23 10/13/2023 CT, head, [...] 3 Final result ANNABELLE CARYLMAJO RICH [email or web address] [facility] [address] [facility], [place], [address], 10/16/2023 10:51:38 10/13/20 23 10/13/2023 CT, cervi [...] MBBS 3 Final result ANNABELLE RICH [email or web address] [facility] [address], [place], [address], 10/16/2023 10:51:38 Result Notes None recorded. Problems Name Problem SNOMED Code Status Onset Date Resolution Date Notes Provider Name and Address Organization Details Recorded Time Tobacco dependence, episodic 734804408 Completed 201612/25/2017 [place], [address], [facility] [place], [place] 8 13:21:13 Ex-smoker 1334446 Active 2017 [place], [address], [facility] [place], [place] 8 13:15:50 Deep venous thrombosis 603608055 Active 2017 ROLANDO [place], [address], [facility] [place], [place] 8 13:15:53 Mixed hyperlipide kassi 788931263 Active [place], [address], [facility] [place], [place] 6 15:34:08 Neoplasm of uncertain behavior of skin 49913741 Completed 10/02/2013 ROLANDO [place], [address], [facility] [place], [place] 6 15:12:15 Allergic rhinitis caused by pollen 77613729 Active [place], [address], [facility] [place], [place] 6 15:12:15 Hearing loss 71892465 [place], [address], [facility] [place], [place] 6 15:34:08 Overweight 556631796 [place], [address], [facility] [place], [place] 6 15:34:08 Impacted cerumen 44508111 Completed 10/02/2013 Gen Aldana PA-C [address] [place], [place] [address], [address], [facility] [place], [place] 6 15:12:15 Chronic alcoholism in remission 570320683 Active Gen Aldana PA-C [address] [place] [address] [place], [address], [facility] [place], [place] 6 15:34:08 Anxiety state 686653664 Active Gen Aldana PA-C [address] [place] [address] [place], [address], [facility] [place], [place] 6 15:34:08 Insomnia 360819210 Active Gen Aldana PA-C [address] [place] [address] [place], [address], [facility] [place], [place] 6 15:12:15 Benign prostatic hyperplasia 075149211 Active Gen Aldana PA-C [address] [place], [place] [address], [address], [facility] [place], [place] 6 15:12:15 Problem Notes None recorded. Procedures Surgical History Date Name Laterality Status Provider Name and Address Organization Details Recorded Time 6 Smoking cessation counseling completed TAURUS Pop [facility] 09/23/2016 07:19:31 4 Destinee - Colonoscopy completed Sarkis Felipe MD [address] [place] [address], [phone], [facility] [place], [place] 04/25/2014 11:47:03 9 Hip Replacement completed Gen Aldana PA-C [address] [place] [address], [address], [facility] [place], [place] 12/02/2011 10:38:13 8 Arthroscopy completed Gen Aldana PA-C [address] [place] [address], [address], [facility] [place], [place] 12/02/2011 10:38:13 Imaging Results Imaging Date Name Status LastModified by Organiz ation Details LastModified Time 09/28/2017 audiogram completed lisa Information no t available 09/28/2017 10:10:52 10/17/2017 XR, shoulder completed [email or web address] [facility] (Outpt Imaging) [address] [place], [address], 10/24/2017 09:57:50 06/01/2020 XR, hip completed [email or web address] [facility] (Outpt Imaging) [address] , [place], [address], 06/02/2020 17:00:04 07/08/2020 CT abdomen/pelvis with contrast completed [address] [facility] [address] [place] [address], [address], 07/13/2020 10:46:57 07/08/2020 CT, abdomen + pelvis completed [address], [address], 07/13/2020 10:46:58 07/09/2020 xr abdomen series supine with decubitis/erec t and single view chest completed [address] [facility] [address] [place] [address], [address], 07/13/2020 10:46:58 07/11/2020 xr abdomen series supine with decubitis/erec t and single view chest completed [address] [facility] [address] [place] [address], [address], 07/13/2020 10:46:58 03/31/2021 xr knee 4 or more views (right) completed [address] [facility] [address] [place] [address], [address], 03/31/2021 11:21:25 05/12/2022 CT, cervical spine, w/o contrast completed [address] [facility] [address] [place] [address], [address], 05/13/2022 07:41:12 05/12/2022 CT, head, w/o contrast completed [address] [facility] [address] [place] [address], [address], 05/13/2022 07:41:13 07/14/2022 CT, head, w/o contrast completed [address] [facility] [address] [place] [address], [address], 07/14/2022 15:29:25 07/24/2022 xr chest Pa and lateral 2 views completed [facility] [address] [place] [address], [address], 07/25/2022 09:59:45 07/27/2023 CT, head, w/o contrast completed [facility] (Medical Records) [address] [place] [address], [address], 07/27/2023 13:17:11 07/27/2023 XR, chest completed [facility] (Medical Records) [address] [place] [address], [address], 07/27/2023 13:23:27 10/13/2023 CT, head, w/o contrast completed [address] [facility] [address] [place] [address], [address], 10/16/2023 10:51:38 10/13/2023 CT, cervical spine, w/o contrast completed [address] [facility] [address] [place] [address], [address], 10/16/2023 10:51:38 Procedure Notes None recorded. Medical [...] DateTime 04/03/2017 173.36 cm Gen Aldana PA-C [address] [place] [address], [address], [facility] 04/03/2017 16:40:25 Date Recorded Body height Body weight Body mass index (BMI) Heart rate Systolic blood pressure Diastolic blood pressure Provider Name and Address Organization Details Last Updated DateTime 7 173.36 cm 78612.9 2 g 29.3 kg/m2 72 /min 112 mm[Hg] 68 mm[Hg] Patdarren Henry [facility] 7 13:11:52 Date Recorded Body height Body mass index (BMI) Body weight Heart rate Systolic blood pressure Diastolic blood pressure Provider Name and Address Organization Details Last Updated DateTime 7 173.36 cm 27.1 kg/m2 86396.1 3 g 80 /min 98 mm[Hg] 72 mm[Hg] Cassandra Horton MA [facility] 7 07:30:37 Date Recorded Body height Body mass index (BMI) Body weight Heart rate Oxygen saturation Oxygen saturation in Arterial blood by Pulse oximetry Systolic blood pressure Diastolic blood pressure Provider Name and Address Organization Details Last Updated DateTime 8 173.36 cm 27.2 kg/m2 05802.3 3 g 81 /min 94 % 94 % 128 mm[Hg] 80 mm[Hg] Sharon Pugh [facility] 8 12:44:42 Social History Question Answer Notes LastModified by Organizat ion Details LastModified Time Tobacco Smoking Status [facility] 10/24/2017 07:29:04 Do You Have [...] Proxy Signed And In Chart No Vijay Andraed, Brother [email or web address] Information not available 10/26/2018 Marital Status Informatio n not available 12/02/2011 Mosquito Repellent Used Routinely No Information not available 01/22/2016 What Was The Date Of Your Most Recent Tobacco Screening? 12/25/2017 Information not available 06/05/2019 How Many Children Do You Have? 3 Arti 1986, Aneudy 1991, Rolando 1994 (live In [place]) Information not available 12/02/2011 Seat Belts Used [...] ed as Cancer - Prosta te) [id number] Not available 06/24/2013 03:00:24 Notes:paternal uncles 6 0, 61 Medical History Condition Response Benign Prostatic Hypertrophy Y Hyperlipidemia Y Hearing Loss Y Immunizations Vaccine Type Date Status Note Provider Nam e and Address Organization Details Recorded Time Influenza, split virus, trivalent, preservative 2 completed Not Available [facility] 11/30/2019 02:27:10 Influenza, split virus, trivalent, PF 3 completed Not Available [facility] 11/30/2019 02:39:40 Hep B, unspecified formulation 9 completed JULIETA Arellano [facility] 12/27/2011 08:14:47 Hep B, unspecified formulation 0 completed JULIETA Arellano [facility] 12/27/2011 08:14:47 Td(adult) unspecified formulation 9 completed JULIETA Arellano, [facility] 12/27/2011 08:14:47 Hep B, unspecified formulation 9 completed JULIETA Arellano, [facility] 12/27/2011 08:14:47 Influenza, split virus, quadrivalent, PF 6 completed Not Available [facility] 11/30/2019 02:36:28 Influenza, split virus, quadrivalent, PF 6 completed Not Available [facility] 11/30/2019 02:30:31 Influenza, split virus, quadrivalent, preservative 8 completed Sharon govea, [facility] 12/25/2017 12:43:46 Past Encounters Encounter ID Performer Location Encounter Start Date Encounter Closed Date Diagnosis/Indication Diagnosis SNOMED-CT Code Diagnosis ICD10 Code Diagnosis Note [id number] ROLANDO Holloway [facility], OFFICE [address] [place] [address] [place] [address] 12/02/2011 09:47:31 12/02/2011 10:56:24 [id number] [facility], OFFICE [address] [place] [address] [place] [address] 02/09/2012 14:08:52 02/09/2012 15:11:09 [id number] [facility], OFFICE [address] [place] [address] [place] [address] 04/12/2012 13:01:36 04/12/2012 13:33:44 [id number] Physical Therapy, [address] [facility] [address] 04/24/2012 09:51:29 04/25/2012 10:17:46 [id number] Physical Therapy, [place] [id number] [facility] [place] [address] 04/25/2012 10:42:50 04/27/2012 08:34:26 [id number] ROLANDO Holloway, [facility], OFFICE [address] [place] [address] [facility] [address] 10/18/2012 12:52:30 10/18/2012 13:45:45 [id number] JULIETA Arellano [facility], OFFICE [address] [place] [address] JOB[place] cortes [address] 01/15/2013 08:55:20 01/15/2013 09:55:36 [id number] Gen Aldana PA-C [facility], OFFICE [address] [facility] [place] [address] 04/16/2013 16:10:42 04/17/2013 11:53:30 [id number] Poppy Reduntain [facility], OFFICE [address] [facility] [place] [address] 10/03/2013 16:14:50 10/03/2013 16:56:49 Influenza vaccine needed 0748576873 106 Tremor 11929131 I reassured pt that his tremor is [...] this visit. Chronic al coholism in remission 448454341 Anxiety is significan t comorbidit y that has driven drinking in past. Congratula lucho pt on again quitting EtOH, encouraged him to continue. Continue with therapy. Going to AA, recommende d continuing . Elevated blood-pressure reading without diagnosis of hypertension 590150251 BP reading high today, goal under 140/90. DASH diet handout given. Recommend regular vigorous exercise, gradual weight loss. Instructed to take BPs 2-3 times weekly at home or at a pharmacy and keep a log. Follow up in 1-2 months for a PHA and bring log and BP equipment. Discussed starting medication if still not controlled . Screening for malignant neoplasm of colon 069199735 [id number] [facility] OFFICE [address] [facility] [place] [address] 01/17/2014 17:37:10 01/20/2014 08:48:11 Injury of nerve of upper extremity 167632302 [id number] Chela Cueto LPN , [facility], OFFICE [address] [place] [address] 02/13/2014 08:24:43 02/13/2014 09:31:36 Cervical radiculopathy 95426138 Left C7 radiculopa thy. Has had MRI. Refer to Dr Perrin for surgical consult. Recommende d calling [facility] to schedule injection as well. Restart gabapentin at 600mg am and qhs. Trial muscle relaxers. Follow up with me as needed. [id number] [facility] [address] [place] [address] 04/25/2014 09:55:50 04/25/2014 12:26:29 [id number] Gen Aldana PA-C , [facility], OFFICE [address] [place] [address] 04/02/2015 11:15:54 04/02/2015 11:53:41 Chronic alcoholism in remission 002187269 Anxiety is significan t comorbidit y that has driven drinking. Congratula lucho pt on again quitting EtOH, encouraged him to continue. Continue with therapy. Restart med. He took handouts on Vipassana meditation , which his therapist has strongly recommende [place]. I also suggested he try this and discussed basic info about courses. Anxiety state 161095793 Increased anxiety after quitting drinking, signif dual diagnosis. Encouraged to continue; continue with therapist. Continue AA, restart citalopram which helped in the past. Overweight 122700353 I reassured pt that his weight loss is completely reasonable given that he has mostly stopped drinking beer and also does heavy physical work. BMI actually still slightly in overweight range at 26. [id number] Cyn Moya D.O. , [facility], OFFICE [address] [place] [address] 08/19/2015 16:01:06 08/19/2015 16:38:22 Alcohol dependence 87283208 F10.20 I encouraged Aneudy to continue to work with [facility] for an inpatient detox bed for alcohol. Discourage d him from attempting to do this at home due to potential safety concerns. No evidence of withdrawal at this time. He will let us know if he needs any additional assistance . [id number] Gen Aldana PA-C , [facility], OFFICE [address] [facility] [address] 01/22/2016 14:21:37 01/22/2016 15:29:51 Adult health examination 921648509 Z00.00 see Risk Assessment and Lifestyle Change Counseling section above. UTD colonoscop y, due 2018. Vaccines UTD. Counseling 295411531 Z71 .9 Active or passive immunization 158144568 Z23 Mixed hyperlipidemia 267 858636 E78.2 LDL = 157, not on statin, OK to stay off considerin g poor evidence for benefit. Overweight 377427136 E66 .3 Regained 24 lbs since last visit less than a year ago. Diet, exercise, weight loss. Hearing loss 83040293 H9 1.93 lifelong as result of premature [...] continue citalopram and with therapist. Shoulder pain 15503481 M 25.512 L shoulder pain after workouts with excellent ROM without pain on exam today. Location of pain suggests bicipital tendinitis but not confirmed with special testing, which makes RC disorder seem more likely. I suggested PT but he would prefer to work on RC exercises and contact me for referral later if desired. [id number] ROLANDO Holloway, [facility], OFFICE [address] [place] [address] 09/23/2016 07:01:06 09/23/2016 07:47:56 Active or passive immunization 181853671 Z23 Cigarette smoker 4850718 7 F17.210 Tobacco user 156949502 Z 72.0 chews. will provide 7mg patch as requested. Follow up 2 weeks. Anxiety state 989485919 F41.1 signif dual diagnosis. Encouraged to continue citalopram and restart with therapist- -not interested in the latter. Continuous chronic alcoholism 769269360 F10.20 Anxiety is significan t comorbidit y [...] Follow up with me in two weeks. [id number] JULIETA Walton, [facility] OFFICE [address] [place] [place] [address] 12/13/2016 12:37:36 12/13/2016 13:19:41 Continuous chronic alcoholism 775159148 F10.20 Anxiety is significan t comorbidit y that has driven drinking. he says he has not been drinking for the past week. He did show up at the ER intoxicate d twice during the month that vivitrol was supposed to be effective (he reports getting his first shot 11/[address] [facility]). Still on SSRI and not at all interested in restarting therapy or AA. As he has at least tolerated it in the past, will again provide vivitrol. I discussed with nursing who confirmed with Jessica that he has no copay nor is a PA needed--or dered, to be administer ed today. Follow up for next shot in four weeks. Anxiety state 291726408 F41.1 signif dual diagnosis. Encouraged to continue citalopram . He is not interested in therapy. He expresses interest in Vipassana meditation --I gave him website addresses and a pamphlet. Cigarette smoker 3384480 7 F17.210 Tobacco user 507454907 Z 72.0 chews. will provide 14mg patch as requested. Follow up 2 weeks. [id number] JULIETA Walton, [facility] OFFICE [address] [place] [address] 01/10/2017 12:53:15 01/10/2017 13:17:37 Chronic alcoholism in remission 765597257 F10.21 [id number] JULIETA Byers, [facility] OFFICE [address] [place] [address] 02/07/2017 14:25:54 02/07/2017 16:14:21 Alcohol dependence 22946768 F10.20 [id number] Nyasia Taylor LPN , [facility] OFFICE [address] [place] [address] 03/07/2017 12:50:45 03/07/2017 13:18:52 Chronic alcoholism in remission 874882934 F10.21 [id number] Nettie Samaniego LPN , [facility] OFFICE [address] [place] [address] 04/03/2017 12:36:59 04/03/2017 13:22:05 Chronic alcoholism in remission 216119434 F10.21 [id number] Gen Aldana PA-C , [facility] OFFICE [address] [place] [address] 04/07/2017 12:39:18 04/07/2017 13:51:06 Adult health examination 310142110 Z00.00 see Risk Assessment and Lifestyle Change Counseling section above. Colonoscop y in 2013 with 1.2 cm sessile polyp with FH early colon cancer. Wade was to repeat in 1 year due to this and FH. Ordered. Vaccines UTD. Adding on hep C test. Counseling 937201242 Z71 .9 Chronic al coholism in remission 092801545 F10.21 doing well on vivitrol for last couple of months, continue. Impaired f asting glycemia 203928939 R73.01 =104 in 2011, recheck now. Screening for disorder 005273770 Z11.59 Tick bite without infection 596458419 W57.XXXA unlikely he has Lyme disease given [...] checks. Screening for malignant neoplasm of colon 785219974 Z12.11 Referral for a DIRECT booked colonoscop y. This patient is a healthy ASA Class 1 or 2 patient (only mild systemic disease), or a STABLE, well controlled insulin dependent diabetic. They do not have serious cardiac disease ie ND/angiopl asty within 1 year, symptomati c CHF; renal failure with CKD 4 or 5; take Coumadin, Plavix, Aggrenox, etc. Tobacco de pendence, episodic 125791839 F17.290 chews tobacco. Will refill patches as requested, along with 2mg gum. From 3-10 minutes were spent in counseling on smoking cessation. [id number] ROLANDO Holloway, [facility], OFFICE [address] [place] [address] 10/24/2017 07:13:17 10/24/2017 07:55:23 Partial thickness rotator cuff tear 577318298 M75.102 significan t pain and limitation in L shoulder 12 days after injury in a fall. Suspect RC tear requiring surgery. Pt in [facility] until late this month. Will order ortho referral for early November. Meanwhile, continue meloxicam. Insomnia 178118531 G47.0 0 OK to restart trazodone 100mg at bedtime. Chronic al coholism in remission 709790898 F10.21 Pt failed Vivitrol, now in [facility], currently sober. He is not interested in returning to [facility]. I informed him that suboxone is only for opiate addiction, which he has never had. He will be discharged from [facility] at end of the month. I asked him to follow up with me in a month or so. Willing to try Campral for cravings, ordered. Nicotine dependence 5629 4008 F17.200 on patch while at [facility], chews tobacco. Thinks he will want patch when he's d/c'd. [id number] Gen Aldana PA-C , [facility], OFFICE [address] [place] [address] 12/25/2017 12:28:47 12/25/2017 13:18:30 Partial thickness rotator cuff tear 690075569 M75.102 Injury 10/2017. I suspected RC tear requiring surgery, referred to ortho--he is finally having consult appt tomorrow. Chronic al coholism in remission 791159901 F10.21 Pt failed Vivitrol, now reports sober for last 2 months or so. He is not interested in returning to [facility]. 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 Homelessne ss makes his sobriety more precarious . Ex-smoker 7620648 Z87.89 1 quit 10/2017, needs more patches--w ill refill. Deep venou s thrombosis 121276584 I82.409 x2, first provoked in 2008, but multivesse l and unprovoked in 08/2017. Refilling Eliquis. Chronic neck pain 795793 7903 107 M54.2 discussed- -I recommende d stopping [...] Sosa Member ID Guarantor Name 03/07/2017 1 [facility] [employer] (MEDICAID HMO) Aneudy Andrade [id number] Aneudy Andrade 04/03/2017 1 [facility] [employer] - [employer] (MEDICAID HMO) Aneudy Andrade [id number] Aneudy Andrade 04/07/2017 1 [facility] [employer] (MEDICAID HMO) Aneudy Andrade [id number] Aneudy Andrade 10/24/2017 1 [facility] [employer] (MEDICAID HMO) Aneudy Andrade [id number] Aneudy Andrade 12/25/2017 1 [facility] [employer] (MEDICAID HMO) Aneudy Andrade [id number] Aneudy Andrade Notes Date Note Type Note Provider Name and Address Organization Details Recorded Time 04/03/2017 text/html Vivitrol injection Nettie Samaniego LPN [facility] 04/04/2017 10:17:06 04/07/2017 text/html Physical Exam/MaleReported bypatient.Nilson [...] recent LDL = 141. Gen Aldana PA-C [address] [place] [address], [phone], [facility] 04/07/2017 13:55:18 10/24/2017 text/html here to discuss L shoulder x-ray done at [facility]. He says this hurt for about 6 mo, but then he fell when intoxicated and hit the shoulder on the curb. This was 10/13. Pain is persisting. EtOH: currently sober. He is here from [facility] and will go back there. He is no longer on vivitrol--last shot here was over 6 mo ago and he has been lost to followup since, except for the occasional ER note, mostly suggesting intoxication. insomnia: wants trazodone again. Gen Aldana PA-C [address] [place], [phone], [facility], [place] 10/24/2017 08:03:28 12/25/2017 text/html Wants a letter f or housing to help him get an apartment. he has been living outside for 1.5 years, except he got himself admitted to [facility] when it was coldest. He thinks he needs to tell them he's disabled, but he really is capable of working. The closest thing to disability is his ongoing struggles with EtOH. L shoulder: says he will be seeing Paul tomorrow about this for the first time. He had seen me 10/24 and I referred. He was in [facility] at the time so could not go [...] in not drinking. Gen Aldana PA-C [address] [place], [phone], [facility], [place] 12/25/2017 13:22:57
--- OUTSIDE RECORDS SUMMARY | 2025-02-14 10:39 | XMS_ITS | Encounter Summary ---
Author Organization [employer] Address [address] [facility] 7t [place] [address] Care Team Providers Care Printed Circuit Board Panels Developer Name Role Phone Bety Rich COLIN Unavailable Unavailable OzAries thompsonna Unavailable Nicolette Donnelly Unavailable [phone] Winston Philip MD Primary Care Provider + [phone] Encounter Details Date Type Department Care Team (Late st Contact Info) Description 06/03/[address] [phone] Winston Philip MD [address] [place] [address] Social History Tobacco Use Types Packs/Day [...] the past 12 months, has t he [employer] gas, oil or water company threatened to [...] - 06/03/2024 11:44 AM EDT Faxed in [facility] pcp forms several months ago, she is looking for them to be filled out and faxed back.[phone] documented in this encounter Plan of Treatment Not on file documented as of this encounter Visit Diagnoses Not on filedocumented in this encounter Care Teams Printed Circuit Board Panels Developer Relationship Specialty Start Date End Date Winston Philip MD [address] [place] [address] PCP - General Internal Medicine 10/17/23 Bety Rich FNP Family Medicine 09/09/22 Jeanne Dickinson [address] [place] [address] 07/31/[address] [address] 08/07/23 07/16/24 documented as of this encounter
[2025-02-14] MEDS: Acetaminophen 325 MG TABLET 650 MG PO (11:56)
--- NOTE | 2025-02-14 12:00 | PC.NURSE ---
Hearing Aids are at the US desk in their case charging. pt also has his sneakers and his back pack at the bedside
[2025-02-14 13:27] VITALS: BP 149/88; PULSE 89; RESP 19; TEMP 36.6; O2SAT 98
--- NOTE | 2025-02-14 13:32 | MHC.RECOVRN ---
Pt accepted to [facility], transported via [facility].
--- NOTE | 2025-02-14 13:39 | PC.NURSE ---
alert, speech clear, steady gait, no tremors, lift provided and clothes provided
== END 2025-02-14 13:39 ==
PROVIDERS: Emergency Provider Emergency Medicine; PCP Physician Assistant
DX: F10.129 Alcohol abuse with intoxication, unspecified (principal); Y90.8 Blood alcohol level of 240 mg/100 ml or more; Z51.81 Encounter for therapeutic drug level monitoring; Z79.899 Other long term (current) drug therapy; Z03.818 Encounter for observation for suspected exposure to other biological agents ruled out
CPT/HCPCS: 0241U; 36415; 80048; 80076; 80307; 83735; 85025; 85610; 99284; S9485

== ENCOUNTER 2025-03-10 10:45 | Emergency (ER) | payer MEDICAID, SELFPAY ==
[2025-03-10 10:50] VITALS: BP 150/90; PULSE 105; O2SAT 93
[2025-03-10] MEDS: Nicotine Polacrilex Lozenge 4 MG LOZENGE BUCCAL (11:13)
[2025-03-10 11:27] VITALS: BP 138/89; PULSE 99; RESP 16; TEMP 37.2; O2SAT 93; BMI 26.6
[2025-03-10 14:00] VITALS: BP 113/68; PULSE 96; RESP 18; TEMP 37.3; O2SAT 95
--- NOTE | 2025-03-10 14:02 | ED_ITS ---
HPI - Alcohol General Chief Complaint: ETOH/Substance Use Stated Complaint: ETOH INTOX,FEELS DEPRESSED,@ [facility] PER EMS Time Seen by Provider: 03/10/25 14:01 Source: patient and RN notes reviewed Mode of arrival: ambulatory Limitations: no limitations History of Present Illness ED Provider: Anjana Staples PA-C HPI narrative: This is a 64-year-old male, with a history of alcohol use disorder and DVT on Eliquis, who presents emergency department with concerns for increased depression and ETOH use. Per EMS, patient was coming from [facility], and police offered patient to go to the emergency room or police Department, and patient decided to come here. Patient denies any suicidal or homicidal ideation. He states that he was just going through the loss of his girlfriend, states that his girlfriend of leukemia yesterday. He states that he went to [employer] and drank. He has a history of binge drinking. He states no current complaints. She would like to be discharged as you takes public transportation. He denies any headache, dizziness, chest pain, shortness of breath, abdominal pain, nausea, vomiting or diarrhea. He does not want detox at this time. He does not quantify how much she drank last night and this morning. He denies any SI, HI, auditory or visual hallucinations. No other complaints or concerns at this time. MD complaint: alcohol intoxication Last drink: Hours (ago) Amount of alcohol consumed: Unknown Chronic alcohol use: Yes Previous visits for alcohol intoxication: Yes Recent trauma: No Associated symptoms: denies other symptoms Treatments prior to arrival: none Related Data Home Medications ?Medication ?Instructions ?Recorded ?Confirmed acetaminophen 500 mg tablet 500 mg PO Q6H PRN mild pain 08/23/24 10/01/24 naltrexone 50 mg tablet 50 mg PO QAM 08/23/24 10/01/24 apixaban 5 mg tablet (Eliquis) 5 mg PO BID 10/01/24 10/01/24 hydroxyzine HCl 25 mg tablet 25 - 50 mg PO BID PRN Anxiety 10/01/24 10/01/24 nicotine (polacrilex) 4 mg gum 4 mg PO NEEDED 10/01/24 10/01/24 Previous Rx's ?Medication ?Instructions ?Recorded apixaban 5 mg tablet (Eliquis) 5 mg PO BID #30 tabs 10/02/24 benzonatate 100 mg capsule 100 mg PO TID PRN cough #10 caps 01/14/25 Allergies Allergy/AdvReac Type Severity Reaction Status Date / Time pollen extracts [POLLEN] Allergy Unknown UNKNOWN Verified 03/10/25 11:30 Review of Systems Review of Systems: Constitutional: No Weight loss, No Fever, No Chills, No Night Sweats, No Fatigue, No Malaise ENT/Mouth: No Hearing loss, No Ear Pain, No Nasal Congestion, No Sinus Pain, No Hoarseness, No sore throat, No Rhinorrhea, No Swallowing Difficulty Eyes: No Eye Pain, No Swelling, No Redness, No Foreign Body, No Discharge, No Vision Changes Cardiovascular: No Chest Pain, No SOB, No Dyspnea on Exertion, No Orthopnea, No Edema, No Palpitations Respiratory: No Cough, No Sputum, No Wheezing, No Smoke Exposure, No Dyspnea Gastrointestinal: No Nausea, No Vomiting, No Diarrhea, No Constipation, No Abdominal pain, No Hematochezia, No Melena Genitourinary: No irregular bleeding, No Dysuria, No Urinary Frequency, No Hematuria, No Urinary Incontinence/retention, No Urgency, No Flank Pain, No Urinary Flow Changes, No Hesitancy Musculoskeletal: No joint pain, No Myalgias, No Joint Swelling Skin: No Skin Lesions, No rash Neuro: No Weakness, No Numbness, No Paresthesias, No Loss of Consciousness, No Dizziness, No Headache Psych: No Anxiety/Panic, No Depression, No SI/HI/AH/VH, No Social Issues, Heme/Lymph: No Bruising, No Bleeding,No Lymphadenopathy Endocrine: No Polyuria, No Polydipsia, No Temperature Intolerance Yes all other systems are reviewed and are negative Constitutional: Constitutional: Reports as per [facility] Past Medical History Attestation statement: The following information was validated with the patient. Medical History DVT (deep venous thrombosis) Alcohol use disorder, moderate, dependence Social History Social History Household Members: None Housing: Apartment Do you presently have visiting nurse or other home services: No Unable to assess alcohol history related to: Refusing to respond Alcohol intake: current Alcohol intake frequency: 3 or more drinks per day Alcohol type: hard liquor Patient Tobacco Use Status: Former Tobacco user Tobacco use type: Cigarette Advance Directives: No Advance Directives Information Provided: Yes service: No Physical Exam ED Vital Signs: Vital Signs - 24 hr 03/10/25 11:27 03/10/25 14:00 Temperature 98.9 F 99.2 F Pulse Rate 99 96 Respiratory Rate 16 18 Blood Pressure 138/89 113/68 Pulse Oximetry 93 95 Oxygen Delivery Method Room Air Room Air BMI result Body Mass Index 26.6 Const General: cooperative, comfortable and no acute distress Orientation/consciousness: patient oriented x3 Limitations: no limitations HENMT Head: Yes normal to inspection, Yes normocephalic and Yes atraumatic Ears: hearing grossly normal bilaterally General nose exam: Normal external nose present Face and sinus: Yes normal facial exam Mouth: Normal oral and palatal mucosa present, oropharynx normal and moist mucous membranes Throat: Yes posterior oropharynx normal Eyes General: appearance normal, both eyes and all related structures Eyelids: Yes eyelids normal Conjunctivae: conjunctivae normal Sclerae: sclerae normal Pupils: Equal, round and reactive pupils present EOM: EOMs intact bilaterally Neck Neck: Yes normal visual inspection, Yes full ROM and Yes no lymphadenopathy Lymphatic: no lymphadenopathy noted Chest Chest palpation & inspection: normal inspection of the chest Resp Effort & Inspection: normal respiratory effort and able to speak in complete sentences Auscultation: clear to auscultation bilaterally, no crackles, no rales, no rhonchi and no wheezes Cardio Rate: regular rate Rhythm: regular rhythm Heart sounds: S1 normal heart sound present and S2 normal heart sound present GI Inspection: Yes normal to inspection Skin General skin exam: no rashes or lesions noted Trauma: no lacerations or abrasions Wounds: no wounds Neuro General: patient oriented x3 and moves all extremities Cranial nerves: Yes Equal, round and reactive pupils present Extrem General: Yes normal to inspection Right upper extremity: normal to inspection Left upper extremity: normal to inspection Right lower extremity: normal to inspection Left lower extremity: normal to inspection Psych Appearance: well kempt Mental Status: mental status grossly normal Speech and movement: Normal speech and movement present Affect: normal affect Attitude: cooperative Thought process: Normal thought process present Thought content: Normal thought content present Insight: Good insight present (Psych) Judgement: Good judgement present (Psych) Medical Decision Making Medical Decision Making MDM Narrative: This is a 64-year-old male, with a history of alcohol use disorder, who presents emergency department with concerns for alcohol intoxication per police, and depression over girlfriend as she recently from leukemia. On arrival, vital signs within normal limits. He is speaking in full sentences under no acute distress. He has been here for approximately 3 hours prior to my evaluation due to long wait times. He was eaten a full meal, he was feeling well, and has no current complaints. He has no history of alcohol withdrawal. Patient was clinically sober, he was ambulatory in the emergency department, able to take multiple laps, steady on his feet. He was eager for discharge. He does not want to see the care team. He does not have any SI or HI. No AH or VH. At this time, patient is stable for discharge. I urged the patient that he could stay as if he was still intoxicated he is at risk for injury however he is clinically sober at this time, able to speak in full sentences, and he was steady on his feet. At this time, patient can be discharged. Given strict return precautions. Differential Diagnosis Differential Diagnoses: The differential diagnosis associated with the presentation includes Alcohol use disorder, binge drinking, polysubstance abuse, depression Medications Administered Discontinued Medications Generic Name Dose Route Start Last Admin Trade Name Freq PRN Reason Stop Dose Admin Nicotine Polacrilex 4 mg 03/10/25 11:12 03/10/25 11:13 Nicotine Polacrilex Lozenge 4 Mg Lozenge BUCCAL 03/10/25 11:13 4 mg ONCE ONE Administration Discharge Plan Discharge Clinical Impression: Alcohol use disorder, moderate, dependence Patient Disposition: Home, Self-Care Instructions: Abuse of Alcohol (ED) Additional Instructions: You were seen in the emergency department due to alcohol use. Please drink plenty of fluids get plenty of rest. We urge you to stay however you were monitored for several hours in the emergency room in your steady on your feet. If any new or worsening symptoms occur including but not limited to severe headache, dizziness, chest pain, shortness for breath, please seek emergent care. Prescriptions: No Action acetaminophen 500 mg tablet 500 mg PO Q6H PRN (Reason: mild pain) naltrexone 50 mg tablet 50 mg PO QAM nicotine (polacrilex) 4 mg gum 4 mg PO NEEDED hydroxyzine HCl 25 mg tablet 25 - 50 mg PO BID PRN (Reason: Anxiety) Eliquis 5 mg tablet 5 mg PO BID Eliquis 5 mg tablet 5 mg PO BID Qty: 30 0RF benzonatate 100 mg capsule 100 mg PO TID PRN (Reason: cough) Qty: 10 0RF Print Language: Estonian
--- OUTSIDE RECORDS SUMMARY | 2025-03-10 14:18 | XMS_ITS | Encounter Summary ---
Author Organization [employer] Address [address] [place] [address] 7 [place] [address] Care Team Providers Care Wheel Assembler Name Role Phone Bety Rich COLIN Unavailable Unavailable Jeanne Dickinson Unavailable Winston Philip MD Primary Care Provider + [phone] Encounter Details Date Type Department Care Team (Late st Contact Info) Description 08/27/[address] [phone] Winston Philip MD [address] [place] [address] [phone] Social History Tobacco Use Types Packs/Day Years [...] a current med list be faxed to [phone] at attn Rina documented in this encounter Plan of Treatment Not on file documented as of this encounter Visit Diagnoses Not on filedocumented in this encounter Care Teams Wheel Assembler Relationship Specialty Start Date End Date Winston Philip MD [address] [place] [address] PCP - General Internal Medicine 10/17/23 Bety Rich FNP Family Medicine 09/09/22 Jeanne Dickinson [address] [place] [address] 07/31/23 documented as of this encounter
--- OUTSIDE RECORDS SUMMARY | 2025-03-10 14:18 | XMS_ITS | Encounter Summary ---
Author Organization [employer] Address [address] [facility] 7t [place] [address] Care Team Providers Care Brake Drum Molder Name Role Phone Layla Bety SHAW Unavailable Unavailable Jeanne Dickinson Unavailable Winston Philip MD Primary Care Provider + [phone] Encounter Details Date Type Department Care Team (Late st Contact Info) Description 11/01/2024 Telephone [facility] [address] [place] [address] February Social History Tobacco Use Types Packs/Day [...] on filedocumented in this encounter Care Teams Brake Drum Molder Relationship Specialty Start Date End Date Winston Philip MD [address] [place] [address] PCP - General Internal Medicine 10/17/23 Bety Rich FNP Family Medicine 09/09/22 Jeanne Dickinson [address] [place] [address] 07/31/23 documented as of this encounter
--- OUTSIDE RECORDS SUMMARY | 2025-03-10 14:18 | XMS_ITS | Encounter Summary ---
Author Organization [employer] Address [address] [place] [address] 7 [place] [address] Care Team Providers Care Flatwork Finisher Name Role Phone Bety Rich COLIN Unavailable Unavailable Jeanne Dickinson Unavailable Winston Philip MD Primary Care Provider + [phone] Encounter Details Date Type Department Care Team (Late st Contact Info) Description 02/06/[address] [phone] Winston Philip MD [address] [place] [address] [phone] Social History Tobacco Use Types Packs/Day Years [...] a PT-1 for a medical appointment. Patient's [facility] ID: [id number] Complete Pickup Address (home): [address] [place] [phone] Alternate pickup address (optional): Patient Emergency Contact Name and Number (optional): Drop off address (list all locations, including name of facility and care being received): [address] How many visits per month needed: [...] on filedocumented in this encounter Care Teams Flatwork Finisher Relationship Specialty Start Date End Date Winston Philip MD [address] [place] [address] PCP - General Internal Medicine 10/17/23 Bety Rich FNP Family Medicine 09/09/22 Jeanne Dickinson [address] [place] [address] 07/31/23 documented as of this encounter
--- OUTSIDE RECORDS SUMMARY | 2025-03-10 14:18 | XMS_ITS | Encounter Summary ---
Author Organization [employer] Address [address] [place] [address] 7t [place] [address] Care Team Providers Care Speaker Mounter Name Role Phone Bety Rich COLIN Unavailable Unavailable OzAries thompsonna Unavailable Nicolette Donnelly Unavailable [phone] Winston Philip MD Primary Care Provider [phone] Gloria Negrete Unavailable Encounter Details Date Type Department Care Team (Late st Contact Info) Description 04/03/[address] [phone] Winston Philip MD [address] [place] [address] [phone] Social History Tobacco Use Types Packs/Day Years [...] on filedocumented in this encounter Care Teams Speaker Mounter Relationship Specialty Start Date End Date Winston Philip MD [address] [place] [address] PCP - General Internal Medicine 10/17/23 Bety Rich FNP Family Medicine 09/09/22 Jeanne Dickinson [address] [place] [address] 07/31/[address] [address] 08/07/23 07/16/24 Gloria Negrete [address] [place] [address] Community Health Worker 02/16/2405/28 documented as of this encounter
--- OUTSIDE RECORDS SUMMARY | 2025-03-10 14:18 | XMS_ITS | Encounter Summary ---
Author Organization [employer] Address [address] [facility] 7t [place] [address] Care Team Providers Care Counter Manager Name Role Phone Bety Rich COLIN Unavailable Unavailable OzAries thompsonna Unavailable Nicolette Donnelly Unavailable [phone] Winston Philip MD Primary Care Provider [phone] Gloria Negrete Unavailable Encounter Details Date Type Department Care Team (Late st Contact Info) Description 04/29/[address] [phone] Winston Philip MD [address] [place] [address] Social History Tobacco Use Types Packs/Day Years [...] 8:13 AM EDT Patient went to a retail service specialist, they told him he should get a CT scan of his chest before his appointment with them on 06/04. He's asking we write the order for one so he can have one done. documented in this encounter Plan of Treatment Not on file documented as of this encounter Visit Diagnoses Not on filedocumented in this encounter Care Teams Counter Manager Relationship Specialty Start Date End Date Winston Philip MD [address] [place] [address] PCP - General Internal Medicine 10/17/23 Bety Rich FNP Family Medicine 09/09/22 Jeanne Dickinson [address] [place] [address] 07/31/23 Nicolette Donnelly [address] [place] [address] 08/07/23 07/16/24 Gloria Negrete [address] [place] [address] Community Health Worker 02/16/2405/28 documented as of this encounter
--- OUTSIDE RECORDS SUMMARY | 2025-03-10 14:18 | XMS_ITS | Encounter Summary ---
Author Organization [employer] Address [address] [place] [address] 7 [place] [address] Care Team Providers Care Torch Operator Name Role Phone Bety Rich Unavailable Unavailable Jeanne Dickinson Unavailable Silviano Freire Unasszaida Primary Care Provider Left Hand, [place] Unavailable [phone] Winston Philip MD Primary Care Provider [phone] Gloria Negrete Unavailable Encounter Details Date Type Department Care Team (Late st Contact Info) Description 08/31/2023 Abstract [facility] [address] [place] [phone] Silviano Freire Unasszaida Social History Tobacco Use [...] on filedocumented in this encounter Care Teams Torch Operator Relationship Specialty Start Date End Date Silviano Freire Unasszaida PCP - General Family Medicine 08/01/23 10/16/23 Winston Philip MD [address] [place] [address] PCP - General Internal Medicine 10/17/23 Bety Rich FNP Family Medicine 09/09/22 Jeanne Dickinson [address] [place] [address] 07/31/23 Nicolette Donnelly [address] [place] [address] 08/07/23 07/16/[address] Negrete [address] [place] [address] Community Health Worker 02/16/2405/28 documented as of this encounter
--- OUTSIDE RECORDS SUMMARY | 2025-03-10 14:18 | XMS_ITS | Encounter Summary ---
Author Organization [employer] Address [address] [place] [address] 7t [place] [address] Care Team Providers Care Mechanical Drafter Name Role Phone Bety Rich COLIN Unavailable Unavailable OzAries thompsonna Unavailable Nicolette Donnelly Unavailable [phone] Winston Philip MD Primary Care Provider [phone] Gloria Negrete Unavailable Encounter Details Date Type Department Care Team (Late st Contact Info) Description 04/03/[address] [phone] Winston Philip MD [address] [place] [address] [phone] Social History Tobacco Use Types Packs/Day Years [...] on filedocumented in this encounter Care Teams Mechanical Drafter Relationship Specialty Start Date End Date Winston Philip MD [address] [place] [address] PCP - General Internal Medicine 10/17/23 Bety Rich FNP Family Medicine 09/09/22 Jeanne Dickinson [address] [place] [address] 07/31/[address] [address] 08/07/23 07/16/24 Gloria Negrete [address] [place] [address] Community Health Worker 02/16/2405/28 documented as of this encounter
--- OUTSIDE RECORDS SUMMARY | 2025-03-10 14:18 | XMS_ITS | Encounter Summary ---
Author Organization [employer] Address [address] [place] [address] 7 [place] [address] Care Team Providers Care Sales Agent Financial Report Service Name Role Phone Bety Rich COLIN Unavailable Unavailable Jeanne Dickinson Unavailable Winston Philip MD Primary Care Provider + [phone] Encounter Details Date Type Department Care Team (Late st Contact Info) Description 11/07/[address] [phone] Winston Philip MD [address] [place] [phone] Social History Tobacco Use Types Packs/Day Years [...] no longer in service. Advised antoine at [facility] to notify pt of need for appt with pcp. * Telephone Encounter - Jeanette Quiroz LPN - 11/07/2024 3:05 PM EST Hx of PE and DVT. Sydnee at [facility] asking how to long to hold the Eliquis before colonoscopy. Please advise. * Telephone Encounter - Vidhya Caban - 11/07/2024 2:15 PM EST Sydnee is a nurse calling from [facility] looking to speak with one of [...] on filedocumented in this encounter Care Teams Sales Agent Financial Report Service Relationship Specialty Start Date End Date Winston Philip MD [address] [place] [address] PCP - General Internal Medicine 10/17/23 Bety Rich FNP Family Medicine 09/09/22 Jeanne Dickinson [address] [place] [address] 07/31/23 documented as of this encounter
--- OUTSIDE RECORDS SUMMARY | 2025-03-10 14:18 | XMS_ITS ---
Author Organization [employer] Address [address] [facility] 7t [place] [address] Care Team Providers Care Head Waitress Name Role Phone Bety Rich Unavailable Unavailable Jeanne Dickinson Unavailable Winston Philip MD Primary Care Provider + [phone] CM Complex Status:Outreach In Progress (Enrolling) Start date:02/18/2025 Enrollment reason:[facility] Case Team Name Relationship Phone February Bravo (Responsible Staff) Continued Care and Services Coordination
--- OUTSIDE RECORDS SUMMARY | 2025-03-10 14:18 | XMS_ITS | Clinical Summary ---
Author Organization [employer] Address [address] [facility] 7t [place] [address] Care Team Providers Care Intelligence Senior Sergeant Name Role Phone Layla Bety SHAW Unavailable Unavailable Jeanne Dickinson Unavailable Winston Philip MD Primary Care Provider + [phone] Allergies Active Allergy Reactions Criticality Noted Date Comments Gramineae Pollens 05/05/2020 Naltrexone Hallucinations 10/11/2021 Medications albuterol 108 (90 Base) MCG/ACT inhaler Inhale 2 puffs every 4 (four) hours if needed for wheezing or shortness of breath. [place] [facility] [place] Active acamprosate (Campral) 333 MG EC [...] escitalopram (Lexapro) 10 MG tabletIndications :Mood disorder ([facility]/HCC) TAKE 1 TABLET BY MOUTH DAILY 90 [...] thrombosis (DVT) of lower extremity, unspecified laterality (CMS/[facility]),History of blood clots Take 1 tablet (5 mg) by mouth 2 times daily. 180 tablet 3 024 2024 Active Multiple Vitamin (multivitamin) capsuleIndication s:Thrombocytopeni a (CMS/[facility]) Take 1 capsule by mouth Once per [...] Encounters Date Type Department Care Team Description 02/28/2025 Refill [facility] [address] [address] Winston Philip MD Tobacco dependence syndrome 02/18/2025 Patient Outreach [facility] (C3) Department [address] [place] [phone] Boin, 02/11/2025 9:00 AM EDT Community Care Management [facility] [address] [address] Mery Coley 02/10/2025 Refill [facility] [address] [address] Winston Philip MD Tobacco dependence syndrome 02/06/2025 10:30 AM EDT Community Care Management [facility] 119 [facility] [address] [place] [address] Mery Coley 02/06/2025 [facility] [address] [place] [address] Winston Philip MD 01/24/2025 Population Health Risk Score [facility] Care [facility] (C3) Department [address] [phone] Provider, Population Health Generic 01/21/2025 Refill [facility] 119 [facility] [address] [place] [address] Winston Philip MD Tobacco dependence syndrome 01/20/2025 Patient Outreach [address] [place] [address] Saida Urbano, DELICATESSEN DEPARTMENT MANAGER Follow-up ([facility] out reach) 01/20/[address] [place] [address] Saida Urbano RN 01/13/[address] [address] Winston Philip MD 12/23/[address] [address] Ellie Cordon Care Management 12/12/[address] [place] [address] Winston Philip MD Tobacco dependence syndrome from [...] Hepatitis A IgM NON-REACT GABRIELLA NON-REACT GABRIELLA [employer] Comment: For additional information, please refer to http://betNOW/faq/RWI526 (This link is being provided for informational/ educational purposes only.) Hepatitis B Surface Ag NON-REACT GABRIELLA NON-REACT GABRIELLA [employer] Comment: For additional information, please refer to http://betNOW/faq/PDI768 (This link is being provided for informational/ educational purposes only.) Hepatitis B Core Antibody IgM NON-REACT GABRIELLA NON-REACT GABRIELLA [employer] Comment: For additional information, please refer to http://betNOW/faq/WDM803 (This link is being provided for informational/ educational purposes only.) Hepatitis C Antibody NON-REACT GABRIELLA NON-REACT GABRIELLA [employer] Comment: HCV antibody was non-reactive. There is no laboratory evidence of HCV infection. In most cases, no further action is required. However, if recent HCV exposure is suspected, a test for HCV RNA (test code 21522) is suggested. For additional information please refer to http://betNOW/faq/WOY24i8 (This link is being provided for informational/ educational purposes only.) Blood Venous blood specimen / Unknown 02/14/2024 9:43 AM EDT 02/14/2024 9:44 AM EDT Narrative [facility] - 02/14/2024 11:34 PM EDT FASTING:NO FASTING: NO Winston Philip MD LAB BLOOD ORDERABLES Final R esult [facility] [address], [place] [address] [employer] [address] [place] [address] * HIV-1/2 Antigen and Antibodies, Fourth Generation, with Reflexes (01/08/2024 11:56 AM EST) Pathologist [facility] HIV Antigen/Antibody, 4th Generation NON-REAC TIVE NON-REAC TIVE [facility] [facility] Comment: HIV-1 antigen and HIV-1/HIV-2 antibodies were [...] ?? For additional information please refer to http://education.Deltek/faq/EOS301 (This link is being provided for informational/ educational purposes only.) The performance of this assay has not been clinically validated in patients less than 2 years old. Blood Venous blood specimen / Unknown 01/08/2024 11:56 AM EST 01/08/2024 11:57 AM EST Narrative [facility] - 01/09/2024 11:56 AM EST FASTING:NO FASTING: NO Winston Philip MD LAB BLOOD ORDERABLES Final R esult [facility] [address], [place] [address] [facility] [facility] [address] [place] [address] * (ABNORMAL) LIPID PANEL W REFLEX TO DLDL (09/30/2022 1:49 PM EST) Pathologist [facility] Cholesterol, Total 149 (<200) MG/DL CONVERTED LEGACY [...] Most Recently Relevant to Health Maintenance Insurance [employer] C3 * Guarantor: Aneudy Andrade Account Type Relation to Patient Date of Phone Billing Address Dental Self Care Teams Intelligence Senior Sergeant Relationship Specialty Start Date End Date Winston Philip MD [address] [place] [address] PCP - General Internal Medicine 10/17/23 Bety Rich FNP Family Medicine 09/09/22 Jeanne Dickinson [address] [place] [phone] (work) 07/31/23
--- OUTSIDE RECORDS SUMMARY | 2025-03-10 14:18 | XMS_ITS | Encounter Summary ---
Author Organization [employer] Address [address] [facility] 7t [place] [address] Care Team Providers Care Machine Load Clerk Name Role Phone Bety Rich Unavailable Unavailable Ozjay Jeanne Unavailable Nicolette Donnelly Unavailable [phone] Winston Philip MD Primary Care Provider [phone] Gloria Negrete Unavailable Reason for Visit * Reason Comments Med Refill Encounter Details Date Type Department Care Team (Late st Contact Info) Description 02/10/2024 Refill [facility] [address] [place] [address] Bety Rich FNP Onychomycosis Social [...] t he electric, gas, oil or water [employer] threatened to shut off services in your [...] the authorized approval for the referral to [facility], theydo not have it * Telephone [...] Center 02/14/2024 9:00 AM Winston Philip MD [facility] Comments: documented in this encounter Plan of Treatment Not on file documented as of this encounter Visit Diagnoses Diagnosis Onychomycosis Dermatophytosis of nail documented in this encounter Care Teams Machine Load Clerk Relationship Specialty Start Date End Date Winston Philip MD [address] [place] [address] PCP - General Internal Medicine 10/17/23 Bety Rich FNP Family Medicine 09/09/22 Jeanne Dickinson [address] [place] [address] 07/31/23 Nicolette Donnelly [address] [place] [address] 08/07/23 07/16/24 Gloria Negrete [address] [place] [address] Community Health Worker 02/16/2405/28 documented as of this encounter
--- OUTSIDE RECORDS SUMMARY | 2025-03-10 14:18 | XMS_ITS | Encounter Summary ---
Author Organization [employer] Address [address] [place] [address] 7t [place] [address] Care Team Providers Care Spanish Tutor Name Role Phone Bety Rich Unavailable Unavailable Jeanne Dickinson Unavailable PcpSilviano Unasszaida Primary Care Provider [place], [place] Unavailable [phone] Winston Philip MD Primary Care Provider [phone] Gloria Negrete Unavailable Reason for Visit * Reason Comments Med Refill Encounter Details Date Type Department Care Team (Late st Contact Info) Description 10/09/[address] [phone] Bety Rich FNP Onychomycosis Social History Tobacco [...] nail documented in this encounter Care Teams Spanish Tutor Relationship Specialty Start Date End Date Silviano Freire Unassigned PCP - General Family Medicine 08/01/23 10/16/23 Winston Philip MD [address] [place] [address] PCP - General Internal Medicine 10/17/23 Bety Rich FNP Family Medicine 09/09/22 Jeanne Dickinson [address] [place] [address] 07/31/[address] [address] 08/07/23 07/16/24 Gloria Negrete [address] [place] [address] Community Health Worker 02/16/2405/28 documented as of this encounter
--- OUTSIDE RECORDS SUMMARY | 2025-03-10 14:19 | XMS_ITS | Encounter Summary ---
Author Organization [employer] Address [address] [facility] 7t [place] [address] Care Team Providers Care Oil Field Worker Name Role Phone Bety Rich COLIN Unavailable Unavailable [employer] thompsonna Unavailable Nicolette Donnelly Unavailable [phone] Winston Philip MD Primary Care Provider [phone] Encounter Details Date Type Department Care Team (Late st Contact Info) Description 06/03/[address] [address] Winston Philip MD [address] [place] [address] Social History Tobacco Use Types Packs/Day [...] the past 12 months, has t he [employer], gas, oil or water company threatened to [...] - 06/03/2024 11:44 AM EDT Faxed in [facility] pcp forms several months ago, she is looking for them to be filled out and faxed back.[phone] documented in this encounter Plan of Treatment Not on file documented as of this encounter Visit Diagnoses Not on filedocumented in this encounter Care Teams Oil Field Worker Relationship Specialty Start Date End Date Winston Philip MD [address] [place] [address] PCP - General Internal Medicine 10/17/23 Bety Rich FNP Family Medicine 09/09/22 Jeanne Dickinson [address] [place] [address] 07/31/[address] [address] 08/07/23 07/16/24 documented as of this encounter
--- OUTSIDE RECORDS SUMMARY | 2025-03-10 14:19 | XMS_ITS | Data Portability ---
Author Organization [facility], , [facility] Address [address] [place] [address] Care Team Providers Care Ruffler Name Role Phone FRANKY ALFARO Primary Care [...] hepatitis C virus Ab, serum 2016 017 [facility], [address] [place] [address], [address], 7 15:20:13 lyme disease igg+igm Ab, serum 2016 017 [facility], [address] [place] [address], [address], 7 15:54:51 glucose, QN [mass/vol ume], serum or plasma 2016 017 [facility], [address] [place] [address], [address], 7 15:19:56 drug of abuse panel, urine [address] [facility], [address] [place] [address], [address], 7 16:31:57 drug of abuse panel, urine [address] [facility], [address] [facility], [place], [address], 7 16:46:16 Referral orthopedi c referral - L shoulder injured in a fall 10/13, suspect RC tear requiring surgery, please eval/xray s done 7 [facility] [place]Feb [place]uary 10:15 am [place], arrive 10:00 am 2016 017 LALO Paul MD, [address] [place], [address], 8 05:00:44 Procedures colonosco py procedure (PROC) - at [facility] please. Last in [address] Felipe who recommend ed repeat in 1 year. Call pt at cell. Monday is best day to contact him. 2016 017 [facility], [address], [place], [address], 7 07:44:48 Surgeries None recorded. Imaging None recorded. Medication Orders Nicoderm CQ 7 mg/24 hr daily transderm al patch 2017 018 [facility], [address], [address], [place], [address], 8 13:17:37 Nicoderm CQ 14 mg/24 hr daily transderm al patch 2017 018 [facility], [address], [address], [place], [address], 8 13:17:37 Eliquis 5 mg tablet 2017 018 INTERFACE [facility], [address], [address], [place], [address], 8 13:17:39 acamprosa te 333 mg tablet,de layed release 2016 017 [id number], [address], [place], [id number], 7 08:00:41 trazodone 100 mg tablet 2016 017 [facility]74128, [address], [place], [id number], 7 08:00:41 nicotine 14 mg/24 hr daily transderm al patch 2016 017 [facility]65938, [address], [place], [id number], 7 07:24:56 Nicorette 4 mg gum 2016 017 [facility], [address], [place], [id number], 7 13:52:44 Vivitrol 380 mg intramusc ular suspensio n,extende d release 2016 017 [facility] #12077, [address], [place], [id number], 7 07:28:38 Vivitrol 380 mg intramusc ular suspensio n,extende d release 2016 017 [facility] #49314, [address], [place], [id number], 7 07:28:38 Vivitrol 380 mg intramusc ular suspensio n,extende d release 2016 017 [facility] #64711, [address], [place], [id number], 7 07:28:38 Patient TargetsNo targets recorded. Patient Instructions Encounter Date Encounter Id Patient Instructions Last Modified By Organization Details Last Modified Time 04/07/2017 [id number] Well Visit 50 to 65: Care Instructions rcarriere Not available 04/07/2017 13:40:04 Reason for Referral Orthopedic Referral for Part ial thickness rotator cuff tear L shoulder injured in a fall 10/13, suspect RC tear requiring surgery, please eval/xrays done 10/17/2017 [facility] [place]December 10:15 am [place], arrive 10:00 am Referring Physician: Gen Aldana, Family Medicine, Encounter Date: 10/24/2017 Results Created Date Observation Date Name Description Value Unit Range Abnormal Flag Note LastModifiedBy Organization Detail LastModifiedTime 04/03/20 17 04/03/2017 drug of abuse panel , urine Amphetamine negati ve Not Available [address], [address], 04/03/2017 13:14:04/03/20 17 04/03/2017 drug of abuse panel , urine Barbiturates negati ve Not Available [address], [address], 04/03/2017 13:14:04/03/20 17 04/03/2017 drug of abuse panel , urine Benzodiazepi rivas negati ve Not Available [address], [address], 04/03/2017 13:14:26 04/03/20 17 04/03/2017 drug of abuse panel , urine Cocaine negati ve Not Available [address], [address], 04/03/2017 13:14:26 04/03/20 17 04/03/2017 drug of abuse panel , urine Ecstasy negati ve Not Available [address], [address], 04/03/2017 13:14:04/03/20 17 04/03/2017 drug of abuse panel , urine Marijuana negati ve Not Available [address], [address], 04/03/2017 13:14:26 04/03/20 17 04/03/2017 drug of abuse panel , urine Methadone negati ve Not Available [address], [address], 04/03/2017 13:14:26 04/03/20 17 04/03/2017 drug of abuse panel , urine Metamphetami ne negati ve Not Available [address], [address], 04/03/2017 13:14:26 04/03/20 17 04/03/2017 drug of abuse panel , urine Opiates negati ve Not Available [address], [address], 04/03/2017 13:14:26 04/03/20 17 04/03/2017 drug of abuse panel , urine [id number] negati ve Not Available [address], [address], 04/03/2017 13:14:26 04/03/20 17 04/03/2017 drug of abuse panel , urine Oxycodone negati ve Not Available [address], [address], 04/03/2017 13:14:26 04/03/20 17 04/03/2017 drug of abuse panel , urine PCP negati ve Not Available [address], [address], 04/03/2017 13:14:26 04/03/20 17 04/03/2017 drug of abuse panel , urine Tricyclic Antidepressa nts negati ve Not Available [address], [address], 04/03/2017 13:14:26 03/07/20 17 03/07/2017 drug of abuse panel , urine Amphetamine negati ve Not Available [address], [address], 03/07/2017 13:16:54 03/07/20 17 03/07/2017 drug of abuse panel , urine Barbiturates negati ve Not Available [address], [address], 03/07/2017 13:16:54 03/07/20 17 03/07/2017 drug of abuse panel , urine Benzodiazepi rivas negati ve Not Available [address], [address], 03/07/2017 13:16:54 03/07/20 17 03/07/2017 drug of abuse panel , urine Cocaine negati ve Not Available [address], [address], 03/07/2017 13:16:54 03/07/20 17 03/07/2017 drug of abuse panel , urine Ecstasy negati ve Not Available [address], [address], 03/07/2017 13:16:54 03/07/20 17 03/07/2017 drug of abuse panel , urine Marijuana negati ve Not Available [address], [address], 03/07/2017 13:16:54 03/07/20 17 03/07/2017 drug of abuse panel , urine Methadone negati ve Not Available [address], [address], 03/07/2017 13:16:54 03/07/20 17 03/07/2017 drug of abuse panel , urine Metamphetami ne negati ve Not Available [address], [address], 03/07/2017 13:16:54 03/07/20 17 03/07/2017 drug of abuse panel , urine Opiates negati ve Not Available [address], [address], 03/07/2017 13:16:54 03/07/20 17 03/07/2017 drug of abuse panel , urine [id number] negati ve Not Available [address], [address], 03/07/2017 13:16:54 03/07/20 17 03/07/2017 drug of abuse panel , urine Oxycodone negati ve Not Available [address], [address], 03/07/2017 13:16:54 03/07/20 17 03/07/2017 drug of abuse panel , urine PCP negati ve Not Available [address], [address], 03/07/2017 13:16:54 03/07/20 17 03/07/2017 drug of abuse panel , urine Tricyclic Antidepressa nts negati ve Not Available [address], [address], 03/07/2017 13:16:54 02/08/20 17 02/07/2017 drug of abuse panel , urine Amphetamine negati ve Not Available [address], [address], 02/07/2017 14:51:39 02/08/20 17 02/07/2017 drug of abuse panel , urine Barbiturates negati ve Not Available [address], [address], 02/07/2017 14:51:39 02/08/20 17 02/07/2017 drug of abuse panel , urine Benzodiazepi rivas negati ve Not Available [address], [address], 02/07/2017 14:51:39 02/08/20 17 02/07/2017 drug of abuse panel , urine Cocaine negati ve Not Available [address], [address], 02/07/2017 14:51:39 02/08/20 17 02/07/2017 drug of abuse panel , urine Ecstasy negati ve Not Available [address], [address], 02/07/2017 14:51:39 02/08/20 17 02/07/2017 drug of abuse panel , urine Marijuana negati ve Not Available [address], [address], 02/07/2017 14:51:39 02/08/20 17 02/07/2017 drug of abuse panel , urine Methadone negati ve Not Available [address], [address], 02/07/2017 14:51:39 02/08/20 17 02/07/2017 drug of abuse panel , urine Metamphetami ne negati ve Not Available [address], [address], 02/07/2017 14:51:39 02/08/20 17 02/07/2017 drug of abuse panel , urine Opiates negati ve Not Available [address], [address], 02/07/2017 14:51:39 02/08/20 17 02/07/2017 drug of abuse panel , urine [id number] negati ve Not Available [address], [address], 02/07/2017 14:51:39 02/08/20 17 02/07/2017 drug of abuse panel , urine Oxycodone negati ve Not Available [address], [address], 02/07/2017 14:51:39 02/08/20 17 02/07/2017 drug of abuse panel , urine PCP negati ve Not Available [address], [address], 02/07/2017 14:51:39 02/08/20 17 02/07/2017 drug of abuse panel , urine Tricyclic Antidepressa nts negati ve Not Available [address], [address], 02/07/2017 14:51:39 04/03/20 17 04/04/2017 lipid panel , serum cholesterol 223 mg/dL <200 mg/dl Matthias able 200-2 39 mg/dl Borde rline High >240 mg/dl High Not Available [address], [address], 04/04/2017 08:19:30 04/03/2004/04/2017 lipid panel , serum triglyceride s 139 mg/dL <150 mg/dL Belle l 150-1 99 mg/dL Borde rline High 200-4 99 mg/dL High >500 mg/dL Very High Not Available [address], [address], 04/04/2017 08:19:30 04/03/2004/04/2017 lipid panel , serum direct HDL 54 mg/dL Not Available [address], [address], 04/04/2017 08:19:30 04/03/2004/04/2017 LDL, calcu milagrosd , [...] r is not neces francisca. Not Available [address], [address], 04/04/2017 08:19:30 04/03/2004/08/2017 hepat itis C virus Ab, serum hepatitis C antibody NON-RE ACTIVE non-re active normal Not Available [email or web address] [address], [address], 04/08/2017 07:40:58 04/03/20 17 04/08/2017 hepat itis C virus Ab, serum signal to cut-off 0.01 <1.00 normal Not Available [email or web address] [address], [place], [address], 04/08/2017 07:40:58 04/03/20 17 04/11/2017 gluco se, QN [mass /volu me], serum or plasm a glucose 100 mg/dL 70-100 Not Available [facility] [address] [facility], [place], [address], 04/11/2017 10:02:59 07/08/20 20 07/08/2020 CBC w/ auto diff WBC 10.40 K/uL 4.00-1 1.00 Note Refer ence Range updat es to all CBC and Diffe liset al resul ts. Not Available [facility] [address] [place] [address], [address], 07/08/2020 16:25:56 07/08/20 20 07/08/2020 CBC w/ auto diff RBC 4.95 M/uL 3.90-5 .69 Not Available [facility] [address] [place] [address], [address], 07/08/2020 16:25:56 07/08/20 20 07/08/2020 CBC w/ auto diff HGB 16.1 g/dL 12.4-1 7.3 Note updat ed Refer ence Range s for all CBC and Diffe liset al resul ts. Not Available [facility] [address] [place] [address], [address], 07/08/2020 16:25:56 07/08/20 20 07/08/2020 CBC w/ auto diff HCT 45.8 % 37.0-5 1.0 Not Available [facility] [address] [place] [address], [address], 07/08/2020 16:25:56 07/08/20 20 07/08/2020 CBC w/ auto diff plt 305 K/uL 140-43 0 Not Available [facility] [address] [place], [address], 07/08/2020 16:25:56 07/08/20 20 07/08/2020 CBC w/ auto diff MCV 92.5 fL 78.0-9 7.0 Not Available [facility] [address] [place], [address], 07/08/2020 16:25:56 07/08/20 20 07/08/2020 CBC w/ auto diff MCH 32.5 pg 25.0-3 3.0 Not Available [facility] [address] [place], [address], 07/08/2020 16:25:56 07/08/20 20 07/08/2020 CBC w/ auto diff MCHC 35.2 g/dL 32.0-3 6.0 Not Available [facility] [address] [place], [address], 07/08/2020 16:25:56 07/08/20 20 07/08/2020 CBC w/ auto diff RDW 13.2 % 11.0-1 5.0 Not Available [facility] [address] [place], [address], 07/08/2020 16:25:56 07/08/20 20 07/08/2020 CBC w/ auto diff MPV 8.5 fL 8.4-12 .8 Not Available [facility] [address] [place], [address], 07/08/2020 16:25:56 07/08/20 20 07/08/2020 CBC w/ auto diff NRBC 0.00 /100_ WBCs 0 Not Available [facility] [address] [place], [address], 07/08/2020 16:25:56 07/08/20 20 07/08/2020 CBC w/ auto diff absolute NRBC 0.00 K/uL 0 Not Available [facility] [address] [place], [address], 07/08/2020 16:25:56 07/08/20 20 07/08/2020 CBC w/ auto diff diff method Auto Not Available [facility] [address] [place], [address], 07/08/2020 16:25:56 07/08/20 20 07/08/2020 CBC w/ auto diff neuts 87.2 % 43.0-7 5.0 high Not Available [facility] [address] [place], [address], 07/08/2020 16:25:56 07/08/20 20 07/08/2020 CBC w/ auto diff lymphs 5.4 % 18.2-4 7.4 low Not Available [facility] [address] [place], [address], 07/08/2020 16:25:56 07/08/20 20 07/08/2020 CBC w/ auto diff monos 6.7 % 4.00-1 1.00 Not Available [facility] [address] [place], [address], 07/08/2020 16:25:56 07/08/20 20 07/08/2020 CBC w/ auto diff eos 0.1 % 0.0-8. 0 Not Available [facility] [address] [place], [address], 07/08/2020 16:25:56 07/08/20 20 07/08/2020 CBC w/ auto diff basos 0.3 % 0.0-2. 0 Not Available [facility] [address] [place], [address], 07/08/2020 16:25:56 07/08/20 20 07/08/2020 CBC w/ auto diff granulocytes , immature (%) 0.3 % 0.0-0. 9 Not Available [facility] [address] [place], [address], 07/08/2020 16:25:56 07/08/20 20 07/08/2020 CBC w/ auto diff absolute neuts 9.07 K/uL 1.80-7 .70 high Not Available [facility] [address] [place], [address], 07/08/2020 16:25:56 07/08/20 20 07/08/2020 CBC w/ auto diff absolute lymphs 0.56 K/uL 1.00-3 .10 low Not Available [facility] [address] [place], [address], 07/08/2020 16:25:56 07/08/20 20 07/08/2020 CBC w/ auto diff absolute monos 0.70 K/uL 0.20-0 .80 Not Available [facility] [address] [place], [address], 07/08/2020 16:25:56 07/08/20 20 07/08/2020 CBC w/ auto diff absolute eos 0.01 K/uL 0.00-0 .80 Not Available [facility] [address] [place], [address], 07/08/2020 16:25:56 07/08/20 20 07/08/2020 CBC w/ auto diff absolute basos 0.03 K/uL 0.00-0 .09 Not Available [facility] [address] [place], [address], 07/08/2020 16:25:56 07/08/20 20 07/08/2020 CBC w/ auto diff granulocytes , immature 0.03 K/uL 0.00-0 .05 Not Available [facility] [address] [place], [address], 07/08/2020 16:25:56 07/08/20 20 07/08/2020 urina lysis , refle x cultu re color Yellow yellow Not Available [facility] [address] [place], [address], 07/08/2020 16:26:04 07/08/20 20 07/08/2020 urina lysis , refle x cultu re clarity Clear Not Available [facility] [address] [place], [address], 07/08/2020 16:26:04 07/08/20 20 07/08/2020 urina lysis , refle x cultu re glucose Negati ve negati ve Not Available [facility] [address] [place], [address], 07/08/2020 16:26:04 07/08/20 20 07/08/2020 urina lysis , refle x cultu re bili Negati ve negati ve Not Available [facility] [address] [place], [address], 07/08/2020 16:26:04 07/08/20 20 07/08/2020 urina lysis , refle x cultu re ketones 1+ negati ve abnormal Not Available [facility] [address] [place], [address], 07/08/2020 16:26:04 07/08/20 20 07/08/2020 urina lysis , refle x cultu re specific gravity 1.025 1.005- 1.030 Not Available [facility] [address] [place], [address], 07/08/2020 16:26:04 07/08/20 20 07/08/2020 urina lysis , refle x cultu re blood Negati ve negati ve Not Available [facility] [address] [place], [address], 07/08/2020 16:26:04 07/08/20 20 07/08/2020 urina lysis , refle x cultu re pH 6.0 5.0-8. 0 Not Available [facility] [address] [place], [address], 07/08/2020 16:26:04 07/08/20 20 07/08/2020 urina lysis , refle x cultu re protein Trace negati ve abnormal Not Available [facility] [address] [place], [address], 07/08/2020 16:26:04 07/08/20 20 07/08/2020 urina lysis , refle x cultu re nitrite Negati ve negati ve Not Available [facility] [address] [place], [address], 07/08/2020 16:26:04 07/08/20 20 07/08/2020 urina lysis , refle x cultu re leukocyte esterase, ur Negati ve negati ve Not Available [facility] [address] [place], [address], 07/08/2020 16:26:04 07/08/20 20 07/08/2020 BMP, blood sodium 138 mmol/ L 133-14 6 Not Available [facility] [address] [place], [address], 07/08/2020 16:57:39 07/08/20 20 07/08/2020 BMP, blood chloride 100 mmol/ L 96-108 Not Available [facility] [address] [place], [address], 07/08/2020 16:57:39 07/08/20 20 07/08/2020 BMP, blood potassium 4.8 mmol/ L 3.3-5. 1 Not Available [facility] [address] [place], [address], 07/08/2020 16:57:39 07/08/20 20 07/08/2020 BMP, blood CO2 26 mmol/ L 21-35 Not Available [facility] [address] [place], [address], 07/08/2020 16:57:39 07/08/20 20 07/08/2020 BMP, blood BUN 18 mg/dL 6-19 Not Available [facility] [address] [place], [address], 07/08/2020 16:57:39 07/08/20 20 07/08/2020 BMP, blood creatinine 0.90 mg/dL 0.5-1. 5 Not Available [facility] [address] [place], [address], 07/08/2020 16:57:39 07/08/20 20 07/08/2020 BMP, blood glucose 135 mg/dL 70-99 high Not Available [facility] [address] [place], [address], 07/08/2020 16:57:39 07/08/20 20 07/08/2020 BMP, blood calcium 9.9 mg/dL 8.4-10 .3 Not Available [facility] [address] [place], [address], 07/08/2020 16:57:39 07/08/20 20 07/08/2020 BMP, blood eGFR 94 mL/mi n/1.7 3m2 >59 Estim ated glome rular filtr ation rate calcu lated using the CKD-E PI equat ion. Not Available [facility] [address] [place], [address], 07/08/2020 16:57:39 07/08/20 20 07/08/2020 BMP, blood anion gap 17 mmol/ L 10-20 Not Available [facility] [address] [place], [address], 07/08/2020 16:57:39 07/08/20 20 07/08/2020 lipas e, serum or plasm a lipase 20 U/L 16-63 Not Available [facility] [address] [place], [address], 07/08/2020 16:57:41 07/08/20 20 07/08/2020 lfts (hepa tic panel ) alkaline phosphatase 50 U/L 39-117 Not Available [facility] [address] [place], [address], 07/08/2020 16:57:42 07/08/20 20 07/08/2020 lfts (hepa tic panel ) total bilirubin 0.5 mg/dL 0.0-1. 2 Not Available [facility] [address] [place], [address], 07/08/2020 16:57:42 07/08/20 20 07/08/2020 lfts (hepa tic panel ) direct bilirubin <0.2 mg/dL 0-0.3 Not Available [facility] [address] [place], [address], 07/08/2020 16:57:42 07/08/20 20 07/08/2020 lfts (hepa tic panel ) bilirubin (indirect) NOT CALCUL ATED mg/dL 0-1.5 Not Available [facility] [address] [place], [address], 07/08/2020 16:57:42 07/08/20 20 07/08/2020 lfts (hepa tic panel ) AST 21 U/L 0-37 Not Available [facility] [address] [place], [address], 07/08/2020 16:57:42 07/08/20 20 07/08/2020 lfts (hepa tic panel ) ALT 17 U/L 0-40 Not Available [facility] [address] [place], [address], 07/08/2020 16:57:42 07/08/20 20 07/08/2020 lfts (hepa tic panel ) total protein 7.3 g/dL 6.5-8. 0 Not Available [facility] [address] [place], [address], 07/08/2020 16:57:42 07/08/20 20 07/08/2020 lfts (hepa tic panel ) albumin 5.0 g/dL 3.9-4. 8 high Not Available [facility] [address] [place], [address], 07/08/2020 16:57:42 07/08/20 20 07/08/2020 lfts (hepa tic panel ) globulin 2.3 g/dL 1-4.8 Not Available [facility] [address] [place], [address], 07/08/2020 16:57:42 07/08/20 20 07/08/2020 lfts (hepa tic panel ) A/G ratio 2.17 ratio 1.00-4 .80 Not Available [facility] [address] [place], [address], 07/08/2020 16:57:42 07/08/20 20 07/08/2020 SARS CoV 2 RNA (COVI D-19) , QL, financial services associate-P CR, respi rator y speci men covid-19 source NASAL SWAB Not Available [facility] [address] [place], [address], 07/08/2020 21:21:18 07/08/20 20 07/08/2020 SARS CoV 2 RNA (COVI D-19) , QL, financial services associate-P CR, respi rator y speci men covid testing status In-mimi se testin g being perfor med Not Available [facility] [address] [place], [address], 07/08/2020 21:21:18 07/08/20 20 07/08/2020 SARS CoV 2 RNA (COVI D-19) , QL, financial services associate-P CR, respi rator y speci men specimen source NASAL Not Available [facility] ([facility] [address] [place], [address], 07/08/2020 21:43:36 07/08/20 20 07/08/2020 SARS CoV 2 RNA (COVI D-19) , QL, financial services associate-P CR, respi rator y speci men sars-cov-2 [...] rizat ion can be found at the [employer] links : For Healt hcare Provi ders: https ://ww w.fda .gov/ media /4024 23/do wnloa d For Patie nts: https ://ww w.fda .gov. media /1365 24/do wnloa d. Not Available [facility] [address] [place], [address], 07/08/2020 21:43:36 07/09/20 20 07/09/2020 CBC WBC 5.08 K/uL 4.00-1 1.00 Note Refer ence Range updat es to all CBC and Melanye liset al resul ts. Not Available [facility] ([facility] [address] [place], [address], 07/09/2020 05:54:49 07/09/20 20 07/09/2020 CBC RBC 4.05 M/uL 3.90-5 .69 Not Available [facility] [address] [place], [address], 07/09/2020 05:54:49 07/09/20 20 07/09/2020 CBC HGB 13.2 g/dL 12.4-1 7.3 Note updat ed Refer ence Range s for all CBC and Melanye liset al resul ts. Not Available [facility] ([facility] [address] [place], [address], 07/09/2020 05:54:49 07/09/2007/09/2020 CBC HCT 37.7 % 37.0-5 1.0 Not Available [facility] [address] [place], [address], 07/09/2020 05:54:49 07/09/2007/09/2020 CBC plt 259 K/uL 140-43 0 Not Available [facility] [address] [place], [address], 07/09/2020 05:54:49 07/09/2007/09/2020 CBC MCV 93.1 fL 78.0-9 7.0 Not Available [facility] [address] [place], [address], 07/09/2020 05:54:49 07/09/2007/09/2020 CBC MCH 32.6 pg 25.0-3 3.0 Not Available [facility] [address] [place], [address], 07/09/2020 05:54:49 07/09/20 20 07/09/2020 CBC MCHC 35.0 g/dL 32.0-3 6.0 Not Available [facility]) [address] [place] [address], [address], 07/09/2020 05:54:49 07/09/20 20 07/09/2020 CBC RDW 13.2 % 11.0-1 5.0 Not Available [facility]) [address] [place] [address], [address], 07/09/2020 05:54:49 07/09/20 20 07/09/2020 CBC MPV 8.5 fL 8.4-12 .8 Not Available [facility]) [address] [place] [address], [address], 07/09/2020 05:54:49 07/09/20 20 07/09/2020 CBC NRBC 0.00 /100_ WBCs 0 Not Available [facility]) [address] [place] [address], [address], 07/09/2020 05:54:49 07/09/2007/09/2020 CBC absolute NRBC 0.00 K/uL 0 Not Available [facility] [address] [place] [address], [address], 07/09/2020 05:54:49 07/09/2007/09/2020 BMP, blood sodium 140 mmol/ L 133-14 6 Not Available [facility] [address] [place] [address], [address], 07/09/2020 06:26:39 07/09/2007/09/2020 BMP, blood chloride 104 mmol/ L 96-108 Not Available [facility] [address] [place] [address], [address], 07/09/2020 06:26:39 07/09/2007/09/2020 BMP, blood potassium 4.1 mmol/ L 3.3-5. 1 Not Available [facility] [address] [place], [address], 07/09/2020 06:26:39 07/09/20 20 07/09/2020 BMP, blood CO2 27 mmol/ L 21-35 Not Available [facility] ([facility] [address] [place], [address], 07/09/2020 06:26:39 07/09/20 20 07/09/2020 BMP, blood BUN 17 mg/dL 6-19 Not Available [facility] Services (Outpatient) [address] [place], [address], 07/09/2020 06:26:39 07/09/20 20 07/09/2020 BMP, blood creatinine 0.90 mg/dL 0.5-1. 5 Not Available [facility] (Outpatient) [address] [place], [address], 07/09/2020 06:26:39 07/09/20 20 07/09/2020 BMP, blood glucose 142 mg/dL 70-99 high Not Available [facility] (Outpatient) [address] [place], [address], 07/09/2020 06:26:39 07/09/20 20 07/09/2020 BMP, blood calcium 8.7 mg/dL 8.4-10 .3 Not Available [facility] (Outpatient) [address] [place], [address], 07/09/2020 06:26:39 07/09/20 20 07/09/2020 BMP, blood eGFR 94 mL/mi n/1.7 3m2 >59 Estim ated glome rular filtr ation rate calcu lated using the CKD-E PI equat ion. Not Available [facility] (Outpatient) [address] [place] [address], [address], 07/09/2020 06:26:39 07/09/2007/09/2020 BMP, blood anion gap 13 mmol/ L 10-20 Not Available [facility] (Outpatient) [address] [place], [address], 07/09/2020 06:26:39 07/09/20 20 07/09/2020 magne sium, QN, serum or plasm a magnesium 2.1 mg/dL 1.6-2. 6 Not Available [facility] (Outpatient) [address] [place], [address], 07/09/2020 06:26:40 07/09/20 20 07/09/2020 phosp horus , serum or plasm a phosphorus 4.0 mg/dL 2.7-4. 5 Not Available [facility] (Outpatient) [address] [place], [address], 07/09/2020 06:26:41 07/10/20 20 07/10/2020 CBC w/ auto diff WBC 2.78 K/uL 4.00-1 1.00 low Note Refer ence Range updat es to all CBC and Diffe renti al resul ts. Not Available [facility] (Outpatient) [address] [place] [address], [address], 07/10/2020 06:04:03 07/10/20 20 07/10/2020 CBC w/ auto diff RBC 3.95 M/uL 3.90-5 .69 Not Available [facility] (Outpatient) [address] [place] [address], [address], 07/10/2020 06:04:03 07/10/20 20 07/10/2020 CBC w/ auto diff HGB 12.7 g/dL 12.4-1 7.3 Note updat ed Refer ence Range s for all CBC and Diffe renti al resul ts. Not Available [facility] (Outpatient) [address] [place], [address], 07/10/2020 06:04:03 07/10/20 20 07/10/2020 CBC w/ auto diff HCT 37.1 % 37.0-5 1.0 Not Available [facility] (Outpatient) [address] [place], [address], 07/10/2020 06:04:03 07/10/20 20 07/10/2020 CBC w/ auto diff plt 238 K/uL 140-43 0 Not Available [facility] (Outpatient) [address] [place], [address], 07/10/2020 06:04:03 07/10/20 20 07/10/2020 CBC w/ auto diff MCV 93.9 fL 78.0-9 7.0 Not Available [facility] (Outpatient) [address] [place], [address], 07/10/2020 06:04:03 07/10/20 20 07/10/2020 CBC w/ auto diff MCH 32.2 pg 25.0-3 3.0 Not Available [facility] (Outpatient) [address] [place], [address], 07/10/2020 06:04:03 07/10/20 20 07/10/2020 CBC w/ auto diff MCHC 34.2 g/dL 32.0-3 6.0 Not Available [facility] (Outpatient) [address] [place], [address], 07/10/2020 06:04:03 07/10/20 20 07/10/2020 CBC w/ auto diff RDW 13.1 % 11.0-1 5.0 Not Available [facility] (Outpatient) [address] [place], [address], 07/10/2020 06:04:03 07/10/2007/10/2020 CBC w/ auto diff MPV 8.6 fL 8.4-12 .8 Not Available [facility] (Outpatient) [address] [place], [address], 07/10/2020 06:04:03 07/10/20 20 07/10/2020 CBC w/ auto diff NRBC 0.00 /100_ WBCs 0 Not Available [facility] (Outpatient) [address] [place], [address], 07/10/2020 06:04:03 07/10/20 20 07/10/2020 CBC w/ auto diff absolute NRBC 0.00 K/uL 0 Not Available [facility] (Outpatient) [address] [place], [address], 07/10/2020 06:04:03 07/10/20 20 07/10/2020 CBC w/ auto diff diff method Auto Not Available [facility] (Outpatient) [address] [place], [address], 07/10/2020 06:04:03 07/10/20 20 07/10/2020 CBC w/ auto diff neuts 49.3 % 43.0-7 5.0 Not Available [facility] (Outpatient) [address] [place], [address], 07/10/2020 06:04:03 07/10/20 20 07/10/2020 CBC w/ auto diff lymphs 33.1 % 18.2-4 7.4 Not Available [facility] (Outpatient) [address] [place], [address], 07/10/2020 06:04:03 07/10/20 20 07/10/2020 CBC w/ auto diff monos 11.2 % 4.00-1 1.00 high Not Available [facility] (Outpatient) [address] [place], [address], 07/10/2020 06:04:03 07/10/20 20 07/10/2020 CBC w/ auto diff eos 5.0 % 0.0-8. 0 Not Available [facility] (Outpatient) [address] [place], [address], 07/10/2020 06:04:03 07/10/20 20 07/10/2020 CBC w/ auto diff basos 0.7 % 0.0-2. 0 Not Available [facility] (Outpatient) [address] [place], [address], 07/10/2020 06:04:03 07/10/20 20 07/10/2020 CBC w/ auto diff granulocytes , immature (%) 0.7 % 0.0-0. 9 Not Available [facility] (Outpatient) [address] [place], [address], 07/10/2020 06:04:03 07/10/20 20 07/10/2020 CBC w/ auto diff absolute neuts 1.37 K/uL 1.80-7 .70 low Not Available [facility] (Outpatient) [address] [place], [address], 07/10/2020 06:04:03 07/10/20 20 07/10/2020 CBC w/ auto diff absolute lymphs 0.92 K/uL 1.00-3 .10 low Not Available [facility] (Outpatient) [address] [place], [address], 07/10/2020 06:04:03 07/10/2007/10/2020 CBC w/ auto diff absolute monos 0.31 K/uL 0.20-0 .80 Not Available [facility] (Outpatient) [address] [place], [address], 07/10/2020 06:04:03 07/10/2007/10/2020 CBC w/ auto diff absolute eos 0.14 K/uL 0.00-0 .80 Not Available [facility] (Outpatient) [address] [place], [address], 07/10/2020 06:04:03 07/10/2007/10/2020 CBC w/ auto diff absolute basos 0.02 K/uL 0.00-0 .09 Not Available [facility] (Outpatient) [address] [place], [address], 07/10/2020 06:04:03 07/10/20 20 07/10/2020 CBC w/ auto diff granulocytes , immature 0.02 K/uL 0.00-0 .05 Not Available [facility] (Outpatient) [address] [place], [address], 07/10/2020 06:04:03 07/10/20 20 07/10/2020 BMP, blood sodium 145 mmol/ L 133-14 6 Not Available [facility] (Outpatient) [address] [place], [address], 07/10/2020 06:23:58 07/10/20 20 07/10/2020 BMP, blood chloride 108 mmol/ L 96-108 Not Available [facility] (Outpatient) [address] [place], [address], 07/10/2020 06:23:58 07/10/20 20 07/10/2020 BMP, blood potassium 4.1 mmol/ L 3.3-5. 1 Not Available [facility] (Outpatient) [address] [place], [address], 07/10/2020 06:23:58 07/10/20 20 07/10/2020 BMP, blood CO2 27 mmol/ L 21-35 Not Available [facility] (Outpatient) [address] [place], [address], 07/10/2020 06:23:58 07/10/20 20 07/10/2020 BMP, blood BUN 12 mg/dL 6-19 Not Available [facility] (Outpatient) [address] [place], [address], 07/10/2020 06:23:58 07/10/20 20 07/10/2020 BMP, blood creatinine 0.90 mg/dL 0.5-1. 5 Not Available [facility] (Outpatient) [address] [place], [address], 07/10/2020 06:23:58 07/10/20 20 07/10/2020 BMP, blood glucose 95 mg/dL 70-99 Not Available [facility] (Outpatient) [address] [place], [address], 07/10/2020 06:23:58 07/10/20 20 07/10/2020 BMP, blood calcium 8.8 mg/dL 8.4-10 .3 Not Available [facility] (Outpatient) [address] [place], [address], 07/10/2020 06:23:58 07/10/20 20 07/10/2020 BMP, blood eGFR 94 mL/mi n/1.7 3m2 >59 Estim ated glome rular filtr ation rate calcu lated using the CKD-E PI equat ion. Not Available [facility] (Outpatient) [address] [place], [address], 07/10/2020 06:23:58 07/10/20 20 07/10/2020 BMP, blood anion gap 14 mmol/ L 10-20 Not Available [facility] (Outpatient) [address] [place], [address], 07/10/2020 06:23:58 07/10/20 20 07/10/2020 magne sium, QN, serum or plasm a magnesium 2.0 mg/dL 1.6-2. 6 Not Available [facility] (Outpatient) [address] [place], [address], 07/10/2020 06:24:00 07/10/20 20 07/10/2020 phosp horus , serum or plasm a phosphorus 3.9 mg/dL 2.7-4. 5 Not Available [facility] (Outpatient) [address] [place], [address], 07/10/2020 06:24:01 07/11/20 20 07/11/2020 CBC w/ auto diff WBC 2.86 K/uL 4.00-1 1.00 low Note Refer ence Range updat es to all CBC and Diffe renti al resul ts. Not Available [facility] (Outpatient) [address] [place], [address], 07/11/2020 05:47:47 07/11/20 20 07/11/2020 CBC w/ auto diff RBC 4.04 M/uL 3.90-5 .69 Not Available [facility] (Outpatient) [address] [place], [address], 07/11/2020 05:47:47 07/11/20 20 07/11/2020 CBC w/ auto diff HGB 13.3 g/dL 12.4-1 7.3 Note updat ed Refer ence Range s for all CBC and Diffe renti al resul ts. Not Available [facility] (Outpatient) [address] [place], [address], 07/11/2020 05:47:47 07/11/20 20 07/11/2020 CBC w/ auto diff HCT 37.6 % 37.0-5 1.0 Not Available [facility] (Outpatient) [address] [place], [address], 07/11/2020 05:47:47 07/11/20 20 07/11/2020 CBC w/ auto diff plt 247 K/uL 140-43 0 Not Available [facility] (Outpatient) [address] [place] [address], [address], 07/11/2020 05:47:47 07/11/20 20 07/11/2020 CBC w/ auto diff MCV 93.1 fL 78.0-9 7.0 Not Available [facility] (Outpatient) [address] [place], [address], 07/11/2020 05:47:47 07/11/20 20 07/11/2020 CBC w/ auto diff MCH 32.9 pg 25.0-3 3.0 Not Available [facility] (Outpatient) [address] [place], [address], 07/11/2020 05:47:47 07/11/20 20 07/11/2020 CBC w/ auto diff MCHC 35.4 g/dL 32.0-3 6.0 Not Available [facility] (Outpatient) [address] [place], [address], 07/11/2020 05:47:47 07/11/20 20 07/11/2020 CBC w/ auto diff RDW 12.8 % 11.0-1 5.0 Not Available [facility] (Outpatient) [address] [place], [address], 07/11/2020 05:47:47 07/11/20 20 07/11/2020 CBC w/ auto diff MPV 8.5 fL 8.4-12 .8 Not Available [facility] (Outpatient) [address] [place] [address], [address], 07/11/2020 05:47:47 07/11/20 20 07/11/2020 CBC w/ auto diff NRBC 0.00 /100_ WBCs 0 Not Available [facility] (Outpatient) [address] [place] [address], [address], 07/11/2020 05:47:47 07/11/20 20 07/11/2020 CBC w/ auto diff absolute NRBC 0.00 K/uL 0 Not Available [facility] (Outpatient) [address] [place], [address], 07/11/2020 05:47:47 07/11/20 20 07/11/2020 CBC w/ auto diff diff method Auto Not Available [facility] (Outpatient) [address] [place], [address], 07/11/2020 05:47:47 07/11/20 20 07/11/2020 CBC w/ auto diff neuts 50.1 % 43.0-7 5.0 Not Available [facility] (Outpatient) [address] [place], [address], 07/11/2020 05:47:47 07/11/20 20 07/11/2020 CBC w/ auto diff lymphs 31.8 % 18.2-4 7.4 Not Available [facility] (Outpatient) [address] [place], [address], 07/11/2020 05:47:47 07/11/20 20 07/11/2020 CBC w/ auto diff monos 12.6 % 4.00-1 1.00 high Not Available [facility] (Outpatient) [address] [place], [address], 07/11/2020 05:47:47 07/11/20 20 07/11/2020 CBC w/ auto diff eos 4.2 % 0.0-8. 0 Not Available [facility] (Outpatient) [address] [place] [address], [address], 07/11/2020 05:47:47 07/11/20 20 07/11/2020 CBC w/ auto diff basos 1.0 % 0.0-2. 0 Not Available [facility] (Outpatient) [address] [place] [address], [address], 07/11/2020 05:47:47 07/11/20 20 07/11/2020 CBC w/ auto diff granulocytes , immature (%) 0.3 % 0.0-0. 9 Not Available [facility] (Outpatient) [address] [place] [address], [address], 07/11/2020 05:47:47 07/11/20 20 07/11/2020 CBC w/ auto diff absolute neuts 1.43 K/uL 1.80-7 .70 low Not Available [facility] (Outpatient) [address] [place] [address], [address], 07/11/2020 05:47:47 07/11/20 20 07/11/2020 CBC w/ auto diff absolute lymphs 0.91 K/uL 1.00-3 .10 low Not Available [facility] (Outpatient) [address] [place], [address], 07/11/2020 05:47:47 07/11/20 20 07/11/2020 CBC w/ auto diff absolute monos 0.36 K/uL 0.20-0 .80 Not Available [facility] (Outpatient) [address] [place], [address], 07/11/2020 05:47:47 07/11/20 20 07/11/2020 CBC w/ auto diff absolute eos 0.12 K/uL 0.00-0 .80 Not Available [facility] (Outpatient) [address] [place], [address], 07/11/2020 05:47:47 07/11/20 20 07/11/2020 CBC w/ auto diff absolute basos 0.03 K/uL 0.00-0 .09 Not Available [facility] (Outpatient) [address] [place], [address], 07/11/2020 05:47:47 07/11/20 20 07/11/2020 CBC w/ auto diff granulocytes , immature 0.01 K/uL 0.00-0 .05 Not Available [facility] (Outpatient) [address] [place], [address], 07/11/2020 05:47:47 07/11/20 20 07/11/2020 BMP, blood sodium 144 mmol/ L 133-14 6 Not Available [facility] (Outpatient) [address] [place], [address], 07/11/2020 06:14:38 07/11/2007/11/2020 BMP, blood chloride 106 mmol/ L 96-108 Not Available [facility] (Outpatient) [address] [place], [address], 07/11/2020 06:14:38 07/11/20 20 07/11/2020 BMP, blood potassium 4.0 mmol/ L 3.3-5. 1 Not Available [facility] (Outpatient) [address] [place], [address], 07/11/2020 06:14:38 07/11/20 20 07/11/2020 BMP, blood CO2 28 mmol/ L 21-35 Not Available [facility] (Outpatient) [address] [place], [address], 07/11/2020 06:14:38 07/11/20 20 07/11/2020 BMP, blood BUN 9 mg/dL 6-19 Not Available [facility] (Outpatient) [address] [place], [address], 07/11/2020 06:14:38 07/11/20 20 07/11/2020 BMP, blood creatinine 0.90 mg/dL 0.5-1. 5 Not Available [facility] (Outpatient) [address] [place], [address], 07/11/2020 06:14:38 07/11/20 20 07/11/2020 BMP, blood glucose 96 mg/dL 70-99 Not Available [facility] (Outpatient) [address] [place], [address], 07/11/2020 06:14:38 07/11/20 20 07/11/2020 BMP, blood calcium 8.9 mg/dL 8.4-10 .3 Not Available [facility] (Outpatient) [address] [place], [address], 07/11/2020 06:14:38 07/11/2007/11/2020 BMP, blood eGFR 94 mL/mi n/1.7 3m2 >59 Estim ated glome rular filtr ation rate calcu lated using the CKD-E PI equat ion. Not Available [facility] (Outpatient) [address] [place] [address], [address], 07/11/2020 06:14:38 07/11/20 20 07/11/2020 BMP, blood anion gap 14 mmol/ L 10-20 Not Available [facility] (Outpatient) [address] [place], [address], 07/11/2020 06:14:38 07/11/20 20 07/11/2020 magne sium, QN, serum or plasm a magnesium 2.0 mg/dL 1.6-2. 6 Not Available [facility] (Outpatient) [address] [place], [address], 07/11/2020 06:14:40 07/11/20 20 07/11/2020 phosp horus , serum or plasm a phosphorus 4.1 mg/dL 2.7-4. 5 Not Available [facility] (Outpatient) [address] [place], [address], 07/11/2020 06:14:41 03/21/20 21 03/21/2021 trey zoe respi rator y viral order (pro) test ordered Rapid COVID has been ordere d Not Available [facility] (Outpatient) [address] [place], [address], 03/21/2021 15:41:30 03/21/20 21 03/21/2021 trey zoe respi rator y viral order (pro) specimen source NASAL Not Available [facility] (Outpatient) [address] [place] [address], [address], 03/21/2021 15:41:30 03/21/20 21 03/21/2021 trey zoe [...] Heather hernandez can be found at the [employer] links : For Healt hcare Provi ders: https ://ww w.[employer] .gov/ media /1365 23/do wnloa d For Patie nts: https ://ww DIY.[employer] .gov. media /1365 24/do wnloa d. Not Available [facility] (Outpatient) [address] [place], [address], 03/21/2021 15:41:30 03/21/20 21 03/21/2021 CBC w/ auto diff WBC 3.27 K/uL 4.00-1 1.00 low Not Available [facility] (Outpatient) [address] [place] [address], [address], 03/21/2021 15:44:51 03/21/20 21 03/21/2021 CBC w/ auto diff RBC 4.92 M/uL 3.90-5 .69 Not Available [facility] (Outpatient) [address] [place], [address], 03/21/2021 15:44:51 03/21/20 21 03/21/2021 CBC w/ auto diff HGB 15.9 g/dL 12.4-1 7.3 Not Available [facility] (Outpatient) [address] [place], [address], 03/21/2021 15:44:51 03/21/20 21 03/21/2021 CBC w/ auto diff HCT 47.0 % 37.0-5 1.0 Not Available [facility] (Outpatient) [address] [place] [address], [address], 03/21/2021 15:44:51 03/21/20 21 03/21/2021 CBC w/ auto diff plt 196 K/uL 140-43 0 Not Available [facility] (Outpatient) [address] [place], [address], 03/21/2021 15:44:51 03/21/20 21 03/21/2021 CBC w/ auto diff MCV 95.5 fL 78.0-9 7.0 Not Available [facility] (Outpatient) [address] [place], [address], 03/21/2021 15:44:51 03/21/20 21 03/21/2021 CBC w/ auto diff MCH 32.3 pg 25.0-3 3.0 Not Available [facility] (Outpatient) [address] [place], [address], 03/21/2021 15:44:51 03/21/20 21 03/21/2021 CBC w/ auto diff MCHC 33.8 g/dL 32.0-3 6.0 Not Available [facility] (Outpatient) [address] [place], [address], 03/21/2021 15:44:51 03/21/20 21 03/21/2021 CBC w/ auto diff RDW 14.6 % 11.0-1 5.0 Not Available [facility] (Outpatient) [address] [place] [address], [address], 03/21/2021 15:44:51 03/21/20 21 03/21/2021 CBC w/ auto diff MPV 8.3 fL 8.4-12 .8 low Not Available [facility] (Outpatient) [address] [place], [address], 03/21/2021 15:44:51 03/21/20 21 03/21/2021 CBC w/ auto diff NRBC 0.00 /100_ WBCs 0 Not Available [facility] (Outpatient) [address] [place] [address], [address], 03/21/2021 15:44:51 03/21/20 21 03/21/2021 CBC w/ auto diff absolute NRBC 0.00 K/uL 0 Not Available [facility] (Outpatient) [address] [place], [address], 03/21/2021 15:44:51 03/21/20 21 03/21/2021 CBC w/ auto diff diff method Auto Not Available [facility] (Outpatient) [address] [place], [address], 03/21/2021 15:44:51 03/21/20 21 03/21/2021 CBC w/ auto diff neuts 46.8 % 43.0-7 5.0 Not Available [facility] (Outpatient) [address] [place], [address], 03/21/2021 15:44:51 03/21/20 21 03/21/2021 CBC w/ auto diff lymphs 41.0 % 18.2-4 7.4 Not Available [facility] (Outpatient) [address] [place], [address], 03/21/2021 15:44:51 03/21/20 21 03/21/2021 CBC w/ auto diff monos 9.5 % 4.00-1 1.00 Not Available [facility] (Outpatient) [address] [place], [address], 03/21/2021 15:44:51 03/21/20 21 03/21/2021 CBC w/ auto diff eos 0.6 % 0.0-8. 0 Not Available [facility] (Outpatient) [address] [place], [address], 03/21/2021 15:44:51 03/21/20 21 03/21/2021 CBC w/ auto diff basos 0.9 % 0.0-2. 0 Not Available [facility] (Outpatient) [address] [place], [address], 03/21/2021 15:44:51 03/21/20 21 03/21/2021 CBC w/ auto diff granulocytes , immature (%) 1.2 % 0.0-0. 9 high Not Available [facility] (Outpatient) [address] [place], [address], 03/21/2021 15:44:51 03/21/20 21 03/21/2021 CBC w/ auto diff absolute neuts 1.53 K/uL 1.80-7 .70 low Not Available [facility] (Outpatient) [address] [place], [address], 03/21/2021 15:44:51 03/21/20 21 03/21/2021 CBC w/ auto diff absolute lymphs 1.34 K/uL 1.00-3 .10 Not Available [facility] (Outpatient) [address] [place], [address], 03/21/2021 15:44:51 03/21/20 21 03/21/2021 CBC w/ auto diff absolute monos 0.31 K/uL 0.20-0 .80 Not Available [facility] (Outpatient) [address] [place] [address], [address], 03/21/2021 15:44:51 03/21/20 21 03/21/2021 CBC w/ auto diff absolute eos 0.02 K/uL 0.00-0 .80 Not Available [facility] (Outpatient) [address] [place], [address], 03/21/2021 15:44:51 03/21/20 21 03/21/2021 CBC w/ auto diff absolute basos 0.03 K/uL 0.00-0 .09 Not Available [facility] (Outpatient) [address] [place] [address], [address], 03/21/2021 15:44:51 03/21/20 21 03/21/2021 CBC w/ auto diff granulocytes , immature 0.04 K/uL 0.00-0 .05 Not Available [facility] (Outpatient) [address] [place], [address], 03/21/2021 15:44:51 03/21/20 21 03/21/2021 BMP, blood sodium 146 mmol/ L 133-14 6 Not Available [facility] (Outpatient) [address] [place], [address], 03/21/2021 16:06:28 03/21/20 21 03/21/2021 BMP, blood chloride 107 mmol/ L 96-108 Not Available [facility] (Outpatient) [address] [place], [address], 03/21/2021 16:06:28 03/21/20 21 03/21/2021 BMP, blood potassium 4.5 mmol/ L 3.3-5. 1 Not Available [facility] (Outpatient) [address] [place], [address], 03/21/2021 16:06:28 03/21/20 21 03/21/2021 BMP, blood CO2 27 mmol/ L 21-35 Not Available [facility] (Outpatient) [address] [place], [address], 03/21/2021 16:06:28 03/21/20 21 03/21/2021 BMP, blood BUN 16 mg/dL 6-19 Not Available [facility] (Outpatient) [address] [place], [address], 03/21/2021 16:06:28 03/21/20 21 03/21/2021 BMP, blood creatinine 0.70 mg/dL 0.5-1. 5 Not Available [facility] (Outpatient) [address] [place], [address], 03/21/2021 16:06:28 03/21/20 21 03/21/2021 BMP, blood glucose 82 mg/dL 70-99 Not Available [facility] (Outpatient) [address] [place], [address], 03/21/2021 16:06:28 03/21/20 21 03/21/2021 BMP, blood calcium 9.1 mg/dL 8.4-10 .3 Not Available [facility] (Outpatient) [address] [place], [address], 03/21/2021 16:06:28 03/21/20 21 03/21/2021 BMP, blood eGFR 103 mL/mi n/1.7 3m2 >59 Estim ated glome rular filtr ation rate calcu lated using the CKD-E PI equat ion. Not Available [facility] (Outpatient) [address] [place], [address], 03/21/2021 16:06:28 03/21/20 21 03/21/2021 BMP, blood anion gap 17 mmol/ L 10-20 Not Available [facility] (Outpatient) [address] [place], [address], 03/21/2021 16:06:28 03/21/20 21 03/21/2021 lfts (hepa tic panel ) alkaline phosphatase 58 U/L 39-117 Not Available [facility] (Outpatient) [address] [place], [address], 03/21/2021 16:06:30 03/21/20 21 03/21/2021 lfts (hepa tic panel ) total bilirubin 0.3 mg/dL 0.0-1. 2 Not Available [facility] (Outpatient) [address] [place], [address], 03/21/2021 16:06:30 03/21/20 21 03/21/2021 lfts (hepa tic panel ) direct bilirubin <0.2 mg/dL 0-0.3 Not Available [facility] (Outpatient) [address] [place], [address], 03/21/2021 16:06:30 03/21/20 21 03/21/2021 lfts (hepa tic panel ) bilirubin (indirect) NOT CALCUL ATED mg/dL 0-1.5 Not Available [facility] (Outpatient) [address] [place], [address], 03/21/2021 16:06:30 03/21/20 21 03/21/2021 lfts (hepa tic panel ) AST 24 U/L 0-37 Not Available [facility] (Outpatient) [address] [place], [address], 03/21/2021 16:06:30 03/21/20 21 03/21/2021 lfts (hepa tic panel ) ALT 17 U/L 0-40 Not Available [facility] (Outpatient) [address] [place], [address], 03/21/2021 16:06:30 03/21/20 21 03/21/2021 lfts (hepa tic panel ) total protein 6.9 g/dL 6.5-8. 0 Not Available [facility] (Outpatient) [address] [place], [address], 03/21/2021 16:06:30 03/21/20 21 03/21/2021 lfts (hepa tic panel ) albumin 4.4 g/dL 3.9-4. 8 Not Available [facility] (Outpatient) [address] [place], [address], 03/21/2021 16:06:30 03/21/20 21 03/21/2021 lfts (hepa tic panel ) globulin 2.5 g/dL 1-4.8 Not Available [facility] (Out[facility] [address] [place], [address], 03/21/2021 16:06:30 03/21/20 21 03/21/2021 [facility] (hepa tic panel ) A/G ratio 1.76 ratio 1.00-4 .80 Not Available [facility] ([facility] [address] [place], [address], 03/21/2021 16:06:30 03/21/20 21 03/21/2021 aceta minop hen, serum acetaminophe n <5.0 ug/mL 15.0-3 0.0 low Not Available [facility] ([facility] [address] [place], [address], 03/21/2021 16:16:22 03/21/20 21 03/21/2021 nereida ol, quant itati ve, serum or plasm a ethanol 327 mg/dL <10 high Not Available [facility] ([facility] [address] [place], [address], 03/21/2021 16:16:24 03/21/20 21 03/21/2021 salic ylate , quant itati ve, serum salicylates <0.3 mg/dL 2.8-19 .9 low Not Available [facility] [address] [place], [address], 03/21/2021 16:16:25 04/24/20 21 04/25/2021 BMP, blood sodium 141 mmol/ L 133-14 6 Not Available [facility] [address] [place] [address], [id number], 04/25/2021 00:24:21 04/24/2004/25/2021 BMP, blood chloride 99 mmol/ L 96-108 Not Available [facility] [address] [place], [id number], 04/25/2021 00:24:21 04/24/20 21 04/25/2021 BMP, blood potassium 3.6 mmol/ L 3.3-5. 1 Not Available [facility] [address] [place], [address], 04/25/2021 00:24:21 04/24/2004/25/2021 BMP, blood CO2 28 mmol/ L 21-35 Not Available [facility] ([facility] [address] [place], [address], 04/25/2021 00:24:21 04/24/2004/25/2021 BMP, blood BUN 16 mg/dL 6-19 Not Available [facility] [address] [place], [address], 04/25/2021 00:24:21 04/24/2004/25/2021 BMP, blood creatinine 0.70 mg/dL 0.5-1. 5 Not Available [facility] ([facility] [address] [place], [address], 04/25/2021 00:24:21 04/24/2004/25/2021 BMP, blood glucose 136 mg/dL 70-99 high Not Available [facility] [address] [place], [address], 04/25/2021 00:24:21 04/24/2004/25/2021 BMP, blood calcium 8.6 mg/dL 8.4-10 .3 Not Available [facility] [address] [place], [address], 04/25/2021 00:24:21 04/24/2004/25/2021 BMP, blood eGFR 103 mL/mi n/1.7 3m2 >59 Estim ated glome rular filtr ation rate calcu lated using the CKD-E PI equat ion. Not Available [facility] ([facility] [address] [place], [address], 04/25/2021 00:24:21 04/24/2004/25/2021 BMP, blood anion gap 18 mmol/ L 10-20 Not Available [facility] ([facility] [address] [place], [address], 04/25/2021 00:24:21 04/24/2004/25/2021 nereida ol, quant itati ve, serum or plasm a ethanol 205 mg/dL <10 high Not Available [facility] ([facility] [address] [place], [address], 04/25/2021 00:36:35 05/19/20 21 05/19/2021 COVID TREY ZOE RESPI RATOR Y VIRAL ORDER (PRO) test ordered Rapid COVID has been ordere d Not Available [facility] [address] [place], [address], 05/19/2021 18:05:22 05/19/20 21 05/19/2021 COVID TREY ZOE RESPI RATOR Y VIRAL ORDER (PRO) specimen source NASAL Not Available [facility] [address] [place], [address], 05/19/2021 18:05:22 05/19/20 21 05/19/2021 COVID TREY [...] rizat ion can be found at the [employer] links : For Healt hcare Provi ders: https ://ww w.fda .gov/ media /2429 23/do wnloa d For Patie nts: https ://ww w.fda .gov. media /1365 24/do susietim cortesGary Not Available [facility] [address] [place], [address], 05/19/2021 18:05:22 05/19/20 21 05/19/2021 BASIC METAB OLIC PANEL sodium 144 mmol/ L 133-14 6 Not Available [facility] [address] [place], [address], 05/19/2021 18:10:58 05/19/20 21 05/19/2021 BASIC METAB OLIC PANEL chloride 103 mmol/ L 96-108 Not Available [facility] [address] [place], [address], 05/19/2021 18:10:58 05/19/20 21 05/19/2021 BASIC METAB OLIC PANEL potassium 3.5 mmol/ L 3.3-5. 1 Not Available [facility] [address] [place], [address], 05/19/2021 18:10:58 05/19/20 21 05/19/2021 BASIC METAB OLIC PANEL CO2 23 mmol/ L 21-35 Not Available [facility] [address] [place], [address], 05/19/2021 18:10:58 05/19/20 21 05/19/2021 BASIC METAB OLIC PANEL BUN 18 mg/dL 6-19 Not Available [facility] [address] [place], [address], 05/19/2021 18:10:58 05/19/20 21 05/19/2021 BASIC METAB OLIC PANEL creatinine 0.70 mg/dL 0.5-1. 5 Not Available [facility] [address] [place], [address], 05/19/2021 18:10:58 05/19/20 21 05/19/2021 BASIC METAB OLIC PANEL glucose 76 mg/dL 70-99 Not Available [facility] [address] [place], [address], 05/19/2021 18:10:58 05/19/20 21 05/19/2021 BASIC METAB OLIC PANEL calcium 8.4 mg/dL 8.4-10 .3 Not Available [facility] [address] [place], [address], 05/19/2021 18:10:58 05/19/20 21 05/19/2021 BASIC METAB OLIC PANEL eGFR 103 mL/mi n/1.7 3m2 >59 Estim ated glome rular filtr ation rate calcu lated using the CKD-E PI equat ion. Not Available [facility] ([facility] [address] [place], [address], 05/19/2021 18:10:58 05/19/20 21 05/19/2021 BASIC METAB OLIC PANEL anion gap 22 mmol/ L 10-20 high Not Available [facility] [address] [place], [address], 05/19/2021 18:10:58 05/19/20 21 05/19/2021 LFTS (HEPA TIC PANEL ) alkaline phosphatase 52 U/L 39-117 Not Available [facility] ([facility] [address] [place], [address], 05/19/2021 18:11:00 05/19/20 21 05/19/2021 LFTS (HEPA TIC PANEL ) total bilirubin 0.3 mg/dL 0.0-1. 2 Not Available [facility] [address] [place], [address], 05/19/2021 18:11:00 05/19/20 21 05/19/2021 LFTS (HEPA TIC PANEL ) direct bilirubin <0.2 mg/dL 0-0.3 Not Available [facility] [address] [place], [address], 05/19/2021 18:11:00 05/19/20 21 05/19/2021 LFTS (HEPA TIC PANEL ) bilirubin (indirect) NOT CALCUL ATED mg/dL 0-1.5 Not Available [facility] [address] [place], [address], 05/19/2021 18:11:00 05/19/20 21 05/19/2021 LFTS (HEPA TIC PANEL ) AST 28 U/L 0-37 Not Available [facility] ([facility] [address] [place], [address], 05/19/2021 18:11:00 05/19/20 21 05/19/2021 LFTS (HEPA TIC PANEL ) ALT 16 U/L 0-40 Not Available [facility] [address] [place], [address], 05/19/2021 18:11:00 05/19/20 21 05/19/2021 LFTS (HEPA TIC PANEL ) total protein 6.6 g/dL 6.5-8. 0 Not Available [facility] ([facility] [address] [place], [address], 05/19/2021 18:11:00 05/19/20 21 05/19/2021 LFTS (HEPA TIC PANEL ) albumin 4.3 g/dL 3.9-4. 8 Not Available [facility] ([facility] [address] [place], [address], 05/19/2021 18:11:00 05/19/20 21 05/19/2021 LFTS (HEPA TIC PANEL ) globulin 2.3 g/dL 1-4.8 Not Available [facility] ([facility] [address] [place], [address], 05/19/2021 18:11:00 05/19/20 21 05/19/2021 LFTS (HEPA TIC PANEL ) A/G ratio 1.87 ratio 1.00-4 .80 Not Available [facility] [address] [place], [address], 05/19/2021 18:11:00 05/19/20 21 05/19/2021 ACETA MINOP HEN LEVEL acetaminophe n <5.0 ug/mL 15.0-3 0.0 low Not Available [facility] ([facility] [address] [place], [address], 05/19/2021 18:13:52 05/19/20 21 05/19/2021 NEREIDA OL, BLOOD ethanol 390 mg/dL <10 high Not Available [facility] ([facility] [address] [place], [address], 05/19/2021 18:13:54 05/19/20 21 05/19/2021 SALIC YLATE S salicylates <0.3 mg/dL 2.8-19 .9 low Not Available [facility] [address] [place], [address], 05/19/2021 18:13:55 05/19/20 21 05/19/2021 TOXIC OLOGY SCREE N, URINE urine cannabinoids NONE DETECT ED none detect ed Cutof f: 50 ng/mL Not Available [facility] [address] [place], [address], 05/19/2021 18:19:37 05/19/20 21 05/19/2021 TOXIC OLOGY SCREE N, URINE urine cocaine metab NONE DETECT ED none detect ed Cutof f: 300 ng/mL Not Available [facility] ([facility] [address] [place], [address], 05/19/2021 18:19:37 05/19/20 21 05/19/2021 TOXIC OLOGY SCREE N, URINE urine amphetamines NONE DETECT ED none detect ed Cutof f: 1000 ng/mL Not Available [facility] ([facility] [address] [place], [address], 05/19/2021 18:19:37 05/19/20 21 05/19/2021 TOXIC OLOGY SCREE N, URINE urine methadone NONE DETECT ED none detect ed Cutof f: 300 ng/mL Not Available [facility] ([facility] [address] [place], [address], 05/19/2021 18:19:37 05/19/20 21 05/19/2021 TOXIC OLOGY SCREE N, URINE urine opiates NONE DETECT ED none detect ed Cutof f: 300 ng/mL Not Available [facility] ([facility]) [address] [place], [address], 05/19/2021 18:19:37 05/19/20 21 05/19/2021 TOXIC OLOGY SCREE N, URINE urine phencyclidin e NONE DETECT ED none detect ed Cutof f: 25 ng/mL Not Available [facility] ([facility]) [address] [place], [address], 05/19/2021 18:19:37 05/19/20 21 05/19/2021 TOXIC OLOGY SCREE N, URINE urine oxycodone NONE DETECT ED none detect ed Cutof f: 300 ng/ml Not Available [facility] ([facility]) [address] [place], [address], 05/19/2021 18:19:37 05/19/20 21 05/19/2021 TOXIC OLOGY SCREE N, URINE urine barbiturates NONE DETECT ED none detect ed Cutof f: 200 ng/mL Not Available [facility] ([facility]) [address] [place], [address], 05/19/2021 18:19:37 05/19/20 21 05/19/2021 TOXIC OLOGY SCREE N, URINE urine benzodiazepi ne NONE DETECT ED none detect ed Cutof f: 200 ng/mL Not Available [facility]) [address] [place] [address], [id number], 05/19/2021 18:19:37 05/19/20 21 05/19/2021 TOXIC OLOGY SCREE N, URINE urine buprenorphin e NONE DETECT ED none detect ed Cutof f: 5 ng/mL INTER PRETA TION FOR TOXIC OLOGY PANEL : Thes e resul ts are uncon firme d and shoul d be used for Medic al Treat ment purpo ses only. Not Available [facility]) [address] [place] [address], [address], 05/19/2021 18:19:37 05/19/20 21 05/19/2021 CBC AND DIFFE RENTI AL WBC 4.03 K/uL 4.00-1 1.00 Not Available [facility]) [address] [place] [address], [address], 05/19/2021 18:42:33 05/19/20 21 05/19/2021 CBC AND DIFFE RENTI AL RBC 4.69 M/uL 3.90-5 .69 Not Available [facility] ([facility]) [address] [place] [address], [address], 05/19/2021 18:42:33 05/19/20 21 05/19/2021 CBC AND DIFFE RENTI AL HGB 15.7 g/dL 12.4-1 7.3 Not Available [facility] ([facility]) [address] [place] [address], [address], 05/19/2021 18:42:33 05/19/20 21 05/19/2021 CBC AND DIFFE RENTI AL HCT 44.0 % 37.0-5 1.0 Not Available [facility] ([facility]) [address] [place] [address], [address], 05/19/2021 18:42:33 05/19/20 21 05/19/2021 CBC AND DIFFE RENTI AL plt 194 K/uL 140-43 0 Not Available [facility] ([facility]) [address] [place], [address], 05/19/2021 18:42:33 05/19/20 21 05/19/2021 CBC AND DIFFE RENTI AL MCV 93.8 fL 78.0-9 7.0 Not Available [facility] ([facility]) [address] [place], [address], 05/19/2021 18:42:33 05/19/20 21 05/19/2021 CBC AND DIFFE RENTI AL MCH 33.5 pg 25.0-3 3.0 high Not Available [facility] ([facility]) [address] [place], [address], 05/19/2021 18:42:33 05/19/20 21 05/19/2021 CBC AND DIFFE RENTI AL MCHC 35.7 g/dL 32.0-3 6.0 Not Available [facility] ([facility]) [address] [place], [address], 05/19/2021 18:42:33 05/19/20 21 05/19/2021 CBC AND DIFFE RENTI AL RDW 14.0 % 11.0-1 5.0 Not Available [facility] ([facility]) [address] [place], [address], 05/19/2021 18:42:33 05/19/20 21 05/19/2021 CBC AND DIFFE RENTI AL MPV 8.2 fL 8.4-12 .8 low Not Available [facility] ([facility]) [address] [place] [address], [address], 05/19/2021 18:42:33 05/19/20 21 05/19/2021 CBC AND DIFFE RENTI AL NRBC 0.00 /100_ WBCs 0 Not Available [facility] ([facility]) [address] [place], [address], 05/19/2021 18:42:33 05/19/20 21 05/19/2021 CBC AND DIFFE RENTI AL absolute NRBC 0.00 K/uL 0 Not Available [facility] ([facility]) [address] [place], [address], 05/19/2021 18:42:33 05/19/20 21 05/19/2021 CBC AND DIFFE RENTI AL diff method Auto Not Available [facility] ([facility]) [address] [place], [address], 05/19/2021 18:42:33 05/19/20 21 05/19/2021 CBC AND DIFFE RENTI AL neuts 58.9 % 43.0-7 5.0 Not Available [facility] ([facility]) [address] [place], [address], 05/19/2021 18:42:33 05/19/20 21 05/19/2021 CBC AND DIFFE RENTI AL lymphs 31.0 % 18.2-4 7.4 Not Available [facility] ([facility]) [address] [place], [address], 05/19/2021 18:42:33 05/19/20 21 05/19/2021 CBC AND DIFFE RENTI AL monos 8.7 % 4.00-1 1.00 Not Available [facility] ([facility]) [address] [place], [address], 05/19/2021 18:42:33 05/19/20 21 05/19/2021 CBC AND DIFFE RENTI AL eos 0.2 % 0.0-8. 0 Not Available [facility] ([facility]) [address] [place], [address], 05/19/2021 18:42:33 05/19/20 21 05/19/2021 CBC AND DIFFE RENTI AL basos 0.5 % 0.0-2. 0 Not Available [facility] ([facility]) [address] [place], [address], 05/19/2021 18:42:33 05/19/20 21 05/19/2021 CBC AND DIFFE RENTI AL granulocytes , immature (%) 0.7 % 0.0-0. 9 Not Available [facility] ([facility]) [address] [place], [address], 05/19/2021 18:42:33 05/19/20 21 05/19/2021 CBC AND DIFFE RENTI AL absolute neuts 2.37 K/uL 1.80-7 .70 Not Available [facility] ([facility]) [address] [place] [address], [address], 05/19/2021 18:42:33 05/19/20 21 05/19/2021 CBC AND DIFFE RENTI AL absolute lymphs 1.25 K/uL 1.00-3 .10 Not Available [facility] ([facility]) [address] [place] [address], [address], 05/19/2021 18:42:33 05/19/20 21 05/19/2021 CBC AND DIFFE RENTI AL absolute monos 0.35 K/uL 0.20-0 .80 Not Available [facility] ([facility]) [address] [place], [address], 05/19/2021 18:42:33 05/19/20 21 05/19/2021 CBC AND DIFFE RENTI AL absolute eos 0.01 K/uL 0.00-0 .80 Not Available [facility] ([facility]) [address] [place] [address], [address], 05/19/2021 18:42:33 05/19/20 21 05/19/2021 CBC AND DIFFE RENTI AL absolute basos 0.02 K/uL 0.00-0 .09 Not Available [facility] ([facility]) [address] [place], [address], 05/19/2021 18:42:33 05/19/20 21 05/19/2021 CBC AND DIFFE RENTI AL granulocytes , immature 0.03 K/uL 0.00-0 .05 Not Available [facility] ([facility]) [address] [place], [address], 05/19/2021 18:42:33 07/04/20 21 07/04/2021 POCT GLUCO SE whole blood glucose 117 mg/dL 70-99 high Not Available [facility] ([facility]) [address] [place], [address], 07/04/2021 18:27:24 06/25/20 22 06/25/2022 POCT GLUCO SE whole blood glucose 73 mg/dL 70-99 Not Available [facility] ([facility]) [address] [place], [address], 06/25/2022 11:23:43 07/14/20 22 07/14/2022 CBC AND DIFFE RENTI AL WBC 6.93 K/uL 4.00-1 1.00 Not Available [facility] ([facility]) [address] [place] [address], [address], 07/14/2022 12:49:57 07/14/20 22 07/14/2022 CBC AND DIFFE RENTI AL RBC 4.89 M/uL 3.90-5 .69 Not Available [facility] ([facility]) [address] [place] [address], [address], 07/14/2022 12:49:57 07/14/20 22 07/14/2022 CBC AND DIFFE RENTI AL HGB 15.8 g/dL 12.4-1 7.3 Not Available [facility] ([facility]) [address] [place], [address], 07/14/2022 12:49:57 07/14/20 22 07/14/2022 CBC AND DIFFE RENTI AL HCT 46.0 % 37.0-5 1.0 Not Available [facility] ([facility]) [address] [place], [address], 07/14/2022 12:49:57 07/14/20 22 07/14/2022 CBC AND DIFFE RENTI AL plt 278 K/uL 140-43 0 Not Available [facility] ([facility]) [address] [place], [address], 07/14/2022 12:49:57 07/14/20 22 07/14/2022 CBC AND DIFFE RENTI AL MCV 94.1 fL 78.0-9 7.0 Not Available [facility] ([facility]) [address] [place] [address], [address], 07/14/2022 12:49:57 07/14/20 22 07/14/2022 CBC AND DIFFE RENTI AL MCH 32.3 pg 25.0-3 3.0 Not Available [facility] ([facility]) [address] [place] [address], [address], 07/14/2022 12:49:57 07/14/20 22 07/14/2022 CBC AND DIFFE RENTI AL MCHC 34.3 g/dL 32.0-3 6.0 Not Available [facility] ([facility]) [address] [place], [address], 07/14/2022 12:49:57 07/14/20 22 07/14/2022 CBC AND DIFFE RENTI AL RDW 14.6 % 11.0-1 5.0 Not Available [facility] ([facility]) [address] [place] [address], [address], 07/14/2022 12:49:57 07/14/20 22 07/14/2022 CBC AND DIFFE RENTI AL MPV 7.9 fL 8.4-12 .8 low Not Available [facility] ([facility]) [address] [place], [address], 07/14/2022 12:49:57 07/14/20 22 07/14/2022 CBC AND DIFFE RENTI AL diff method Auto Not Available [facility] ([facility]) [address] [place], [address], 07/14/2022 12:49:57 07/14/20 22 07/14/2022 CBC AND DIFFE RENTI AL neuts 72.3 % 43.0-7 5.0 Not Available [facility] ([facility]) [address] [place], [address], 07/14/2022 12:49:57 07/14/20 22 07/14/2022 CBC AND DIFFE RENTI AL lymphs 18.5 % 18.2-4 7.4 Not Available [facility] ([facility]) [address] [place], [address], 07/14/2022 12:49:57 07/14/20 22 07/14/2022 CBC AND DIFFE RENTI AL monos 6.8 % 4.00-1 1.00 Not Available [facility] ([facility]) [address] [place], [address], 07/14/2022 12:49:57 07/14/20 22 07/14/2022 CBC AND DIFFE RENTI AL eos 0.4 % 0.0-8. 0 Not Available [facility] ([facility]) [address] [place], [address], 07/14/2022 12:49:57 07/14/20 22 07/14/2022 CBC AND DIFFE RENTI AL basos 1.0 % 0.0-2. 0 Not Available [facility] ([facility]) [address] [place], [address], 07/14/2022 12:49:57 07/14/20 22 07/14/2022 CBC AND DIFFE RENTI AL granulocytes , immature (%) 1.0 % 0.0-0. 9 high Not Available [facility] ([facility]) [address] [place], [address], 07/14/2022 12:49:57 07/14/20 22 07/14/2022 CBC AND DIFFE RENTI AL absolute neuts 5.01 K/uL 1.80-7 .70 Not Available [facility] ([facility]) [address] [place], [address], 07/14/2022 12:49:57 07/14/20 22 07/14/2022 CBC AND DIFFE RENTI AL absolute lymphs 1.28 K/uL 1.00-3 .10 Not Available [facility] ([facility]) [address] [place], [address], 07/14/2022 12:49:57 07/14/20 22 07/14/2022 CBC AND DIFFE RENTI AL absolute monos 0.47 K/uL 0.20-0 .80 Not Available [facility] ([facility]) [address] [place], [address], 07/14/2022 12:49:57 07/14/20 22 07/14/2022 CBC AND DIFFE RENTI AL absolute eos 0.03 K/uL 0.00-0 .80 Not Available [facility] ([facility]) [address] [place], [address], 07/14/2022 12:49:57 07/14/2007/14/2022 CBC AND DIFFE RENTI AL absolute basos 0.07 K/uL 0.00-0 .09 Not Available [facility] ([facility]) [address] [place] [address], [address], 07/14/2022 12:49:57 07/14/20 22 07/14/2022 CBC AND DIFFE RENTI AL granulocytes , immature 0.07 K/uL 0.00-0 .05 high Not Available [facility] ([facility]) [address] [place], [address], 07/14/2022 12:49:57 07/14/20 22 07/14/2022 PT-IN R PT 10.7 sec 10.2-1 2.9 Not Available [facility] ([facility]) [address] [place], [address], 07/14/2022 13:17:26 07/14/20 22 07/14/2022 PT-IN R INR 0.9 0.9-1. 1 Thera peuti c range for oral Vitam in K antag onist s: 2.0-3 .5 Not Available [facility] ([facility]) [address] [place], [address], 07/14/2022 13:17:26 07/14/20 22 07/14/2022 NEREIDA OL, BLOOD ethanol 347 mg/dL <10 high Not Available [facility] ([facility]) [address] [place], [address], 07/14/2022 13:18:50 07/14/20 22 07/14/2022 BASIC METAB OLIC PANEL sodium 144 mmol/ L 133-14 6 Not Available [facility] ([facility]) [address] [place], [address], 07/14/2022 13:26:13 07/14/20 22 07/14/2022 BASIC METAB OLIC PANEL chloride 98 mmol/ L 96-108 Not Available [facility] ([facility]) [address] [place], [address], 07/14/2022 13:26:13 07/14/20 22 07/14/2022 BASIC METAB OLIC PANEL potassium 3.7 mmol/ L 3.3-5. 1 Not Available [facility] ([facility]) [address] [place], [address], 07/14/2022 13:26:13 07/14/20 22 07/14/2022 BASIC METAB OLIC PANEL CO2 29 mmol/ L 21-35 Not Available [facility] ([facility]) [address] [place], [address], 07/14/2022 13:26:13 07/14/20 22 07/14/2022 BASIC METAB OLIC PANEL BUN 17 mg/dL 6-19 Not Available [facility] ([facility]) [address] [place], [address], 07/14/2022 13:26:13 07/14/20 22 07/14/2022 BASIC METAB OLIC PANEL creatinine 0.70 mg/dL 0.5-1. 5 Not Available [facility] ([facility]) [address] [place], [address], 07/14/2022 13:26:13 07/14/20 22 07/14/2022 BASIC METAB OLIC PANEL glucose 80 mg/dL 70-99 Not Available [facility] ([facility]) [address] [place], [address], 07/14/2022 13:26:13 07/14/20 22 07/14/2022 BASIC METAB OLIC PANEL calcium 8.8 mg/dL 8.4-10 .3 Not Available [facility] ([facility]) [address] [place], [address], 07/14/2022 13:26:13 07/14/20 22 07/14/2022 BASIC METAB OLIC PANEL eGFR 105 mL/mi n/1.7 3m2 >59 Estim ated glome rular filtr ation rate calcu lated using the CKD-E PI refit equat ion. Not Available [facility] ([facility]) [address] [place], [address], 07/14/2022 13:26:13 07/14/20 22 07/14/2022 BASIC METAB OLIC PANEL anion gap 21 mmol/ L 10-20 high Not Available [facility] ([facility]) [address] [place], [address], 07/14/2022 13:26:13 07/14/20 22 07/14/2022 LFTS (HEPA TIC PANEL ) alkaline phosphatase 78 U/L 39-117 Not Available [facility] ([facility]) [address] [place], [address], 07/14/2022 13:26:15 07/14/20 22 07/14/2022 LFTS (HEPA TIC PANEL ) total bilirubin 0.5 mg/dL 0.0-1. 2 Not Available [facility] ([facility]) [address] [place], [address], 07/14/2022 13:26:15 07/14/20 22 07/14/2022 LFTS (HEPA TIC PANEL ) direct bilirubin <0.2 mg/dL 0-0.3 Not Available [facility] ([facility]) [address] [place], [address], 07/14/2022 13:26:15 07/14/20 22 07/14/2022 LFTS (HEPA TIC PANEL ) bilirubin (indirect) NOT CALCUL ATED mg/dL 0-1.5 Not Available [facility] ([facility]) [address] [place], [address], 07/14/2022 13:26:15 07/14/20 22 07/14/2022 LFTS (HEPA TIC PANEL ) AST 56 U/L 0-37 high Not Available [facility] ([facility]) [address] [place], [address], 07/14/2022 13:26:15 07/14/20 22 07/14/2022 LFTS (HEPA TIC PANEL ) ALT 39 U/L 0-40 Not Available [facility] ([facility]) [address] [place], [address], 07/14/2022 13:26:15 07/14/20 22 07/14/2022 LFTS (HEPA TIC PANEL ) total protein 6.9 g/dL 6.5-8. 0 Not Available [facility] ([facility]) [address] [place], [address], 07/14/2022 13:26:15 07/14/20 22 07/14/2022 LFTS (HEPA TIC PANEL ) albumin 4.8 g/dL 3.9-4. 8 Not Available [facility] ([facility]) [address] [place], [address], 07/14/2022 13:26:15 07/14/20 22 07/14/2022 LFTS (HEPA TIC PANEL ) globulin 2.1 g/dL 1-4.8 Not Available [facility] ([facility]) [address] [place], [address], 07/14/2022 13:26:15 07/14/20 22 07/14/2022 LFTS (HEPA TIC PANEL ) A/G ratio 2.29 ratio 1.00-4 .80 Not Available [facility] ([facility]) [address] [place], [address], 07/14/2022 13:26:15 07/14/20 22 07/14/2022 MAGNE SIUM magnesium 1.9 mg/dL 1.6-2. 6 Not Available [facility] ([facility]) [address] [place], [address], 07/14/2022 13:26:16 07/24/20 22 07/24/2022 POCT GLUCO SE whole blood glucose 93 mg/dL 70-99 Not Available [facility] ([facility]) [address] [place], [address], 07/24/2022 09:26:57 07/24/20 22 07/24/2022 BASIC METAB OLIC PANEL sodium 144 mmol/ L 133-14 6 Not Available [facility] [address] [place], [id number], 07/24/2022 10:48:25 07/24/20 22 07/24/2022 BASIC METAB OLIC PANEL chloride 101 mmol/ L 96-108 Not Available [facility] [address] [place], [address], 07/24/2022 10:48:25 07/24/20 22 07/24/2022 BASIC METAB OLIC PANEL potassium 3.9 mmol/ L 3.3-5. 1 Speci men sligh tly hemol yzed, resul t may be false ly eleva lucho. Not Available [facility] [address] [place], [id number], 07/24/2022 10:48:25 07/24/20 22 07/24/2022 BASIC METAB OLIC PANEL CO2 27 mmol/ L 21-35 Not Available [facility] [address] [place], [id number], 07/24/2022 10:48:25 07/24/20 22 07/24/2022 BASIC METAB OLIC PANEL BUN 20 mg/dL 6-19 high Not Available [facility] [address] [place], [address], 07/24/2022 10:48:25 07/24/20 22 07/24/2022 BASIC METAB OLIC PANEL creatinine 0.70 mg/dL 0.5-1. 5 Not Available [facility] [address] [place], [address], 07/24/2022 10:48:25 07/24/20 22 07/24/2022 BASIC METAB OLIC PANEL glucose 88 mg/dL 70-99 Not Available [facility] [address] [place], [address], 07/24/2022 10:48:25 07/24/20 22 07/24/2022 BASIC METAB OLIC PANEL calcium 8.0 mg/dL 8.4-10 .3 low Not Available [facility] [address] [place], [id number], 07/24/2022 10:48:25 07/24/20 22 07/24/2022 BASIC METAB OLIC PANEL eGFR 105 mL/mi n/1.7 3m2 >59 Estim ated glome rular filtr ation rate calcu lated using the CKD-E PI refit equat ion. Not Available [facility] [address] [place], [id number], 07/24/2022 10:48:25 07/24/20 22 07/24/2022 BASIC METAB OLIC PANEL anion gap 20 mmol/ L 10-20 Not Available [facility] [address] [place], [address], 07/24/2022 10:48:25 07/24/20 22 07/24/2022 LIPAS E lipase 57 U/L 16-63 Not Available [facility] [address] [place], [id number], 07/24/2022 10:48:27 07/24/20 22 07/24/2022 LFTS (HEPA TIC PANEL ) alkaline phosphatase 60 U/L 39-117 Not Available [facility] [address] [place], [address], 07/24/2022 10:48:28 07/24/20 22 07/24/2022 LFTS (HEPA TIC PANEL ) total bilirubin 0.5 mg/dL 0.0-1. 2 Not Available [facility] [address] [place], [place], [address], 07/24/2022 10:48:28 07/24/20 22 07/24/2022 LFTS (HEPA TIC PANEL ) direct bilirubin <0.2 mg/dL 0-0.3 Not Available [facility] (Out[facility] [address] [place], [address], 07/24/2022 10:48:28 07/24/20 22 07/24/2022 LFTS (HEPA TIC PANEL ) bilirubin (indirect) NOT CALCUL ATED mg/dL 0-1.5 Not Available [facility] ([facility] [address] [place], [address], 07/24/2022 10:48:28 07/24/20 22 07/24/2022 LFTS (HEPA TIC PANEL ) AST 93 U/L 0-37 high Not Available [facility] ([facility]patient) [address] [place], [address], 07/24/2022 10:48:28 07/24/20 22 07/24/2022 LFTS (HEPA TIC PANEL ) ALT 56 U/L 0-40 high Not Available [facility] ([facility]) [address] [place], [address], 07/24/2022 10:48:28 07/24/20 22 07/24/2022 LFTS (HEPA TIC PANEL ) total protein 5.9 g/dL 6.5-8. 0 low Not Available [facility] ([facility]) [address] [place], [address], 07/24/2022 10:48:28 07/24/20 22 07/24/2022 LFTS (HEPA TIC PANEL ) albumin 4.1 g/dL 3.9-4. 8 Not Available [facility] ([facility] [address] [place], [address], 07/24/2022 10:48:28 07/24/20 22 07/24/2022 LFTS (HEPA TIC PANEL ) globulin 1.8 g/dL 1-4.8 Not Available [facility] ([facility]) [address] [place], [address], 07/24/2022 10:48:28 07/24/20 22 07/24/2022 LFTS (HEPA TIC PANEL ) A/G ratio 2.28 ratio 1.00-4 .80 Not Available [facility] ([facility]) [address] [place], [address], 07/24/2022 10:48:28 07/24/20 22 07/24/2022 MAGNE SIUM magnesium 1.9 mg/dL 1.6-2. 6 Not Available [facility] ([facility]) [address] [place], [address], 07/24/2022 10:48:29 07/24/20 22 07/24/2022 LACTA TE lactate 3.39 mmol/ L 0.50-2 .20 critical high Criti lydia value : Resul ts smalls d to and read back by: liana oro ed Not Available [facility] ([facility]) [address] [place], [address], 07/24/2022 10:53:16 07/24/20 22 07/24/2022 VENOU S BLOOD GAS pH, venous 7.36 7.31-7 .41 Not Available [facility] ([facility]) [address] [place], [address], 07/24/2022 10:53:18 07/24/20 22 07/24/2022 VENOU S BLOOD GAS pCO2, venous 52.50 mmHg 41.00- 51.00 high Not Available [facility] ([facility] [address] [place], [address], 07/24/2022 10:53:18 07/24/20 22 07/24/2022 VENOU S BLOOD GAS pO2, venous 68.20 mmHg 35.00- 40.00 high Not Available [facility] ([facility]) [address] [place], [address], 07/24/2022 10:53:18 07/24/20 22 07/24/2022 VENOU S BLOOD GAS HCO3, venous 29 mmol/ L 23-28 high Not Available [facility] ([facility]) [address] [place], [address], 07/24/2022 10:53:18 07/24/20 22 07/24/2022 VENOU S BLOOD GAS base excess venous 2.0 mmol/ L 0.0-3. 0 Not Available [facility] ([facility]) [address] [place], [address], 07/24/2022 10:53:18 07/24/20 22 07/24/2022 VENOU S BLOOD GAS so2, venous 90.80 % 60.00- 80.00 high Not Available [facility] ([facility]) [address] [place], [address], 07/24/2022 10:53:18 07/24/20 22 07/24/2022 VENOU S BLOOD GAS fo2hb, venous 89.40 % 71.00- 74.00 high Not Available [facility] ([facility]) [address] [place], [address], 07/24/2022 10:53:18 07/24/20 22 07/24/2022 VENOU S BLOOD GAS carboxy HGB 1.30 % 0-1.50 Not Available [facility] ([facility]patient) [address] [place], [address], 07/24/2022 10:53:18 07/24/20 22 07/24/2022 VENOU S BLOOD GAS methgb % 0.20 % 0-1.50 Not Available [facility] ([facility]) [address] [place], [address], 07/24/2022 10:53:18 07/24/20 22 07/24/2022 CBC AND DIFFE RENTI AL WBC 3.10 K/uL 4.00-1 1.00 low Not Available [facility] ([facility]) [address] [place] [address], [address], 07/24/2022 10:54:18 07/24/20 22 07/24/2022 CBC AND DIFFE RENTI AL RBC 4.56 M/uL 3.90-5 .69 Not Available [facility] ([facility]) [address] [place] [address], [address], 07/24/2022 10:54:18 07/24/20 22 07/24/2022 CBC AND DIFFE RENTI AL HGB 14.8 g/dL 12.4-1 7.3 Not Available [facility] ([facility]) [address] [place], [address], 07/24/2022 10:54:18 07/24/20 22 07/24/2022 CBC AND DIFFE RENTI AL HCT 43.1 % 37.0-5 1.0 Not Available [facility] ([facility]) [address] [place] [address], [address], 07/24/2022 10:54:18 07/24/20 22 07/24/2022 CBC AND DIFFE RENTI AL plt 113 K/uL 140-43 0 low Wright e in previ ous value s noted . Not Available [facility] ([facility]) [address] [place] [address], [address], 07/24/2022 10:54:18 07/24/20 22 07/24/2022 CBC AND DIFFE RENTI AL MCV 94.5 fL 78.0-9 7.0 Not Available [facility] ([facility]) [address] [place] [address], [address], 07/24/2022 10:54:18 07/24/20 22 07/24/2022 CBC AND DIFFE RENTI AL MCH 32.5 pg 25.0-3 3.0 Not Available [facility] ([facility]) [address] [place], [address], 07/24/2022 10:54:18 07/24/20 22 07/24/2022 CBC AND DIFFE RENTI AL MCHC 34.3 g/dL 32.0-3 6.0 Not Available [facility] ([facility]) [address] [place] [address], [address], 07/24/2022 10:54:18 07/24/20 22 07/24/2022 CBC AND DIFFE RENTI AL RDW 15.7 % 11.0-1 5.0 high Not Available [facility] ([facility]) [address] [place] [address], [address], 07/24/2022 10:54:18 07/24/20 22 07/24/2022 CBC AND DIFFE RENTI AL MPV 8.3 fL 8.4-12 .8 low Not Available [facility] ([facility]) [address] [place] [address], [address], 07/24/2022 10:54:18 07/24/20 22 07/24/2022 CBC AND DIFFE RENTI AL diff method Auto Not Available [facility] ([facility]) [address] [place] [address], [address], 07/24/2022 10:54:18 07/24/20 22 07/24/2022 CBC AND DIFFE RENTI AL neuts 62.9 % 43.0-7 5.0 Not Available [facility] ([facility]) [address] [place], [address], 07/24/2022 10:54:18 07/24/20 22 07/24/2022 CBC AND DIFFE RENTI AL lymphs 18.4 % 18.2-4 7.4 Not Available [facility] ([facility]) [address] [place], [address], 07/24/2022 10:54:18 07/24/20 22 07/24/2022 CBC AND DIFFE RENTI AL monos 15.8 % 4.00-1 1.00 high Not Available [facility] ([facility]) [address] [place], [address], 07/24/2022 10:54:18 07/24/20 22 07/24/2022 CBC AND DIFFE RENTI AL eos 1.3 % 0.0-8. 0 Not Available [facility] ([facility]) [address] [place], [address], 07/24/2022 10:54:18 07/24/20 22 07/24/2022 CBC AND DIFFE RENTI AL basos 1.0 % 0.0-2. 0 Not Available [facility] ([facility]) [address] [place] [address], [address], 07/24/2022 10:54:18 07/24/20 22 07/24/2022 CBC AND DIFFE RENTI AL granulocytes , immature (%) 0.6 % 0.0-0. 9 Not Available [facility] ([facility]) [address] [place] [address], [address], 07/24/2022 10:54:18 07/24/20 22 07/24/2022 CBC AND DIFFE RENTI AL absolute neuts 1.95 K/uL 1.80-7 .70 Not Available [facility] ([facility]) [address] [place] [address], [address], 07/24/2022 10:54:18 07/24/20 22 07/24/2022 CBC AND DIFFE RENTI AL absolute lymphs 0.57 K/uL 1.00-3 .10 low Not Available [facility] (Outpatient) [address] [place] [address], [address], 07/24/2022 10:54:18 07/24/20 22 07/24/2022 CBC AND DIFFE RENTI AL absolute monos 0.49 K/uL 0.20-0 .80 Not Available [facility] ([facility]) [address] [place], [address], 07/24/2022 10:54:18 07/24/20 22 07/24/2022 CBC AND DIFFE RENTI AL absolute eos 0.04 K/uL 0.00-0 .80 Not Available [facility] ([facility]) [address] [place], [address], 07/24/2022 10:54:18 07/24/20 22 07/24/2022 CBC AND DIFFE RENTI AL absolute basos 0.03 K/uL 0.00-0 .09 Not Available [facility] ([facility]patient) [address] [place], [address], 07/24/2022 10:54:18 07/24/20 22 07/24/2022 CBC AND DIFFE RENTI AL granulocytes , immature 0.02 K/uL 0.00-0 .05 Not Available [facility] ([facility]patient) [address] [place], [address], 07/24/2022 10:54:18 07/24/20 22 07/24/2022 PT-IN R PT 10.9 sec 10.2-1 2.9 Not Available [facility] ([facility]) [address] [place], [address], 07/24/2022 11:28:16 07/24/20 22 07/24/2022 PT-IN R INR 1.0 0.9-1. 1 Thera peuti c range for oral Vitam in K antag onist s: 2.0-3 .5 Not Available [facility] ([facility]) [address] [place], [address], 07/24/2022 11:28:16 07/24/20 22 07/24/2022 LAB ADD ON contact information [id number] Not Available [facility] (Outpatient) [address] [place], [address], 07/24/2022 11:45:46 07/24/20 22 07/24/2022 LAB ADD ON test requested ETHANO L Not Available [facility] (Outpatient) [address] [place], [address], 07/24/2022 11:45:46 07/24/20 22 07/24/2022 LAB ADD ON status Add on order being proce ssed. Floor or provi jimmy will be notif ied if testi ng canno t be perfo rmed Not Available [facility] (Outpatient) [address] [place], [address], 07/24/2022 11:45:46 07/24/20 22 07/24/2022 LACTA TE lactate 4.21 mmol/ L 0.50-2 .20 critical high Criti lydia value : Resul ts smalls d to and read back by: michael bentley ed 1234 Not Available [facility] (Outpatient) [address] [place], [address], 07/24/2022 12:35:04 07/24/20 22 07/24/2022 NEREIDA OL, BLOOD ethanol 288 mg/dL <10 high Not Available [facility] ([facility]patient) [address] [place], [address], 07/24/2022 13:04:37 07/24/20 22 07/24/2022 COVID TREY ZOE RESPI RATOR Y VIRAL ORDER (PRO) test ordered Rapid COVID has been ordere d Not Available [facility] ([facility]) [address] [place], [address], 07/24/2022 17:17:25 07/24/20 22 07/24/2022 COVID TREY ZOE RESPI RATOR Y VIRAL ORDER (PRO) specimen source/descr iption NASAL Not Available [facility] ([facility]) [address] [place], [address], 07/24/2022 17:17:25 07/24/20 22 07/24/2022 COVID TREY [...] 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 Not Available [facility] (Outpatient) [address] [place] [address], [address], 07/24/2022 17:17:25 10/13/20 23 10/13/2023 CBC AND DIFFE RENTI AL WBC 3.27 K/uL 4.00-1 1.00 low Not Available [facility] (Outpatient) [address] [place] [address], [address], 10/13/2023 20:02:27 10/13/20 23 10/13/2023 CBC AND DIFFE RENTI AL RBC 4.38 M/uL 3.90-5 .69 Not Available [facility] ([facility]patient) [address] [place] [address], [address], 10/13/2023 20:02:27 10/13/20 23 10/13/2023 CBC AND DIFFE RENTI AL HGB 14.5 g/dL 12.4-1 7.3 Not Available [facility] ([facility]) [address] [place] [address], [address], 10/13/2023 20:02:27 10/13/20 23 10/13/2023 CBC AND DIFFE RENTI AL HCT 41.1 % 37.0-5 1.0 Not Available [facility] ([facility]) [address] [place], [address], 10/13/2023 20:02:27 10/13/20 23 10/13/2023 CBC AND DIFFE RENTI AL plt 232 K/uL 140-43 0 Not Available [facility] ([facility]patient) [address] [place], [address], 10/13/2023 20:02:27 10/13/20 23 10/13/2023 CBC AND DIFFE RENTI AL MCV 93.8 fL 78.0-9 7.0 Not Available [facility] ([facility]patient) [address] [place], [address], 10/13/2023 20:02:27 10/13/20 23 10/13/2023 CBC AND DIFFE RENTI AL MCH 33.1 pg 25.0-3 3.0 high Not Available [facility] ([facility]patient) [address] [place], [address], 10/13/2023 20:02:27 10/13/20 23 10/13/2023 CBC AND DIFFE RENTI AL MCHC 35.3 g/dL 32.0-3 6.0 Not Available [facility] ([facility]) [address] [place], [address], 10/13/2023 20:02:27 10/13/20 23 10/13/2023 CBC AND DIFFE RENTI AL RDW 13.0 % 11.0-1 5.0 Not Available [facility] ([facility]) [address] [place], [address], 10/13/2023 20:02:27 10/13/20 23 10/13/2023 CBC AND DIFFE RENTI AL MPV 8.6 fL 8.4-12 .8 Not Available [facility] ([facility]patient) [address] [place], [address], 10/13/2023 20:02:27 10/13/20 23 10/13/2023 CBC AND DIFFE RENTI AL diff method Auto Not Available [facility] ([facility]patient) [address] [place], [address], 10/13/2023 20:02:27 10/13/20 23 10/13/2023 CBC AND DIFFE RENTI AL neuts 52.0 % 43.0-7 5.0 Not Available [facility] (Outpatient) [address] [place], [address], 10/13/2023 20:02:27 10/13/20 23 10/13/2023 CBC AND DIFFE RENTI AL lymphs 36.1 % 18.2-4 7.4 Not Available [facility] (Outpatient) [address] [place], [address], 10/13/2023 20:02:27 10/13/20 23 10/13/2023 CBC AND DIFFE RENTI AL monos 9.2 % 4.00-1 1.00 Not Available [facility] (Outpatient) [address] [place], [address], 10/13/2023 20:02:27 10/13/20 23 10/13/2023 CBC AND DIFFE RENTI AL eos 1.2 % 0.0-8. 0 Not Available [facility] (Outpatient) [address] [place], [address], 10/13/2023 20:02:27 10/13/20 23 10/13/2023 CBC AND DIFFE RENTI AL basos 0.9 % 0.0-2. 0 Not Available [facility] (Outpatient) [address] [place], [address], 10/13/2023 20:02:27 10/13/20 23 10/13/2023 CBC AND DIFFE RENTI AL granulocytes , immature (%) 0.6 % 0.0-0. 9 Not Available [facility] (Outpatient) [address] [place], [address], 10/13/2023 20:02:27 10/13/20 23 10/13/2023 CBC AND DIFFE RENTI AL absolute neuts 1.70 K/uL 1.80-7 .70 low Not Available [facility] (Outpatient) [address] [place], [address], 10/13/2023 20:02:27 10/13/20 23 10/13/2023 CBC AND DIFFE RENTI AL absolute lymphs 1.18 K/uL 1.00-3 .10 Not Available [facility] (Outpatient) [address] [place], [address], 10/13/2023 20:02:27 10/13/20 23 10/13/2023 CBC AND DIFFE RENTI AL absolute monos 0.30 K/uL 0.20-0 .80 Not Available [facility] (Outpatient) [address] [place], [address], 10/13/2023 20:02:27 10/13/20 23 10/13/2023 CBC AND DIFFE RENTI AL absolute eos 0.04 K/uL 0.00-0 .80 Not Available [facility] (Outpatient) [address] [place], [address], 10/13/2023 20:02:27 10/13/20 23 10/13/2023 CBC AND DIFFE RENTI AL absolute basos 0.03 K/uL 0.00-0 .09 Not Available [facility] (Outpatient) [address] [place], [address], 10/13/2023 20:02:27 10/13/20 23 10/13/2023 CBC AND DIFFE RENTI AL granulocytes , immature 0.02 K/uL 0.00-0 .05 Not Available [facility] (Outpatient) [address] [place], [address], 10/13/2023 20:02:27 10/13/20 23 10/13/2023 TOXIC OLOGY SCREE N, URINE urine cannabinoids NONE DETECT ED none detect ed Cutof f: 50 ng/mL Not Available [facility] ([facility]) [address] [place], [address], 10/13/2023 20:13:15 10/13/20 23 10/13/2023 TOXIC OLOGY SCREE N, URINE urine cocaine metab NONE DETECT ED none detect ed Cutof f: 300 ng/mL Not Available [facility] (Outpatient) [address] [place], [address], 10/13/2023 20:13:15 10/13/20 23 10/13/2023 TOXIC OLOGY SCREE N, URINE urine amphetamines NONE DETECT ED none detect ed Cutof f: 1000 ng/mL Not Available [facility] (Outpatient) [address] [place], [address], 10/13/2023 20:13:15 10/13/20 23 10/13/2023 TOXIC OLOGY SCREE N, URINE urine methadone NONE DETECT ED none detect ed Cutof f: 300 ng/mL Not Available [facility] (Outpatient) [address] [place], [address], 10/13/2023 20:13:15 10/13/20 23 10/13/2023 TOXIC OLOGY SCREE N, URINE urine opiates NONE DETECT ED none detect ed Cutof f: 300 ng/mL Not Available [facility] (Outpatient) [address] [place], [address], 10/13/2023 20:13:15 10/13/20 23 10/13/2023 TOXIC OLOGY SCREE N, URINE urine phencyclidin e NONE DETECT ED none detect ed Cutof f: 25 ng/mL Not Available [facility] (Outpatient) [address] [place], [address], 10/13/2023 20:13:15 10/13/20 23 10/13/2023 TOXIC OLOGY SCREE N, URINE urine oxycodone NONE DETECT ED none detect ed Cutof f: 300 ng/mL Not Available [facility] (Outpatient) [address] [place], [address], 10/13/2023 20:13:15 10/13/20 23 10/13/2023 TOXIC OLOGY SCREE N, URINE urine barbiturates NONE DETECT ED none detect ed Cutof f: 200 ng/mL Not Available [facility] (Outpatient) [address] [place], [address], 10/13/2023 20:13:15 10/13/20 23 10/13/2023 TOXIC OLOGY SCREE N, URINE urine benzodiazepi ne NONE DETECT ED none detect ed Cutof f: 200 ng/mL Not Available [facility] (Outpatient) [address] [place], [address], 10/13/2023 20:13:15 10/13/20 23 10/13/2023 TOXIC OLOGY SCREE N, URINE urine buprenorphin e NONE DETECT ED none detect ed Cutof f: 5 ng/mL Not Available [facility] (Outpatient) [address] [place], [address], 10/13/2023 20:13:15 10/13/20 23 10/13/2023 TOXIC OLOGY SCREE N, URINE fentanyl, urine NONE DETECT ED none detect ed Cutof f: 5 ng/mL INTER PRETA TION FOR TOXIC OLOGY PANEL : Thes e resul ts are uncon firme d and shoul d be used for Medic al Treat ment purpo ses only. Not Available [facility] (Outpatient) [address] [place], [address], 10/13/2023 20:13:15 10/13/20 23 10/13/2023 BASIC METAB OLIC PANEL sodium 145 mmol/ L 133-14 6 Not Available [facility] ([facility]patient) [address] [place], [address], 10/13/2023 20:29:28 10/13/20 23 10/13/2023 BASIC METAB OLIC PANEL chloride 109 mmol/ L 96-108 high Not Available [facility] (Outpatient) [address] [place], [address], 10/13/2023 20:29:28 10/13/20 23 10/13/2023 BASIC METAB OLIC PANEL potassium 3.8 mmol/ L 3.3-5. 1 Not Available [facility] (Outpatient) [address] [place], [address], 10/13/2023 20:29:28 10/13/20 23 10/13/2023 BASIC METAB OLIC PANEL CO2 23 mmol/ L 21-35 Not Available [facility] (Outpatient) [address] [place], [address], 10/13/2023 20:29:28 10/13/20 23 10/13/2023 BASIC METAB OLIC PANEL BUN 12 mg/dL 6-19 Not Available [facility] (Outpatient) [address] [place], [address], 10/13/2023 20:29:28 10/13/20 23 10/13/2023 BASIC METAB OLIC PANEL creatinine 0.80 mg/dL 0.5-1. 5 Not Available [facility] (Outpatient) [address] [place], [address], 10/13/2023 20:29:28 10/13/20 23 10/13/2023 BASIC METAB OLIC PANEL glucose 92 mg/dL 70-99 Not Available [facility] ([facility]patient) [address] [place], [address], 10/13/2023 20:29:28 10/13/20 23 10/13/2023 BASIC METAB OLIC PANEL calcium 9.1 mg/dL 8.4-10 .3 Not Available [facility] (Outpatient) [address] [place], [address], 10/13/2023 20:29:28 10/13/20 23 10/13/2023 BASIC METAB OLIC PANEL eGFR 101 mL/mi n/1.7 3m2 >59 Estim ated glome rular filtr ation rate calcu lated using the CKD-E PI refit equat ion. Not Available [facility] (Outpatient) [address] [place], [address], 10/13/2023 20:29:28 10/13/20 23 10/13/2023 BASIC METAB OLIC PANEL anion gap 17 mmol/ L 10-20 Not Available [facility] (Outpatient) [address] [place], [address], 10/13/2023 20:29:28 10/13/20 23 10/13/2023 LFTS (HEPA TIC PANEL ) alkaline phosphatase 48 U/L 39-117 Not Available [facility] (Outpatient) [address] [place], [address], 10/13/2023 20:29:31 10/13/20 23 10/13/2023 LFTS (HEPA TIC PANEL ) total bilirubin <0.2 mg/dL 0.0-1. 2 Not Available [facility] (Outpatient) [address] [place], [address], 10/13/2023 20:29:31 10/13/20 23 10/13/2023 LFTS (HEPA TIC PANEL ) direct bilirubin <0.2 mg/dL 0-0.3 Not Available [facility] (Outpatient) [address] [place], [address], 10/13/2023 20:29:31 10/13/20 23 10/13/2023 LFTS (HEPA TIC PANEL ) bilirubin (indirect) NOT CALCUL ATED mg/dL 0-1.5 Not Available [facility] (Outpatient) [address] [place], [address], 10/13/2023 20:29:31 10/13/20 23 10/13/2023 LFTS (HEPA TIC PANEL ) AST 20 U/L 0-37 Not Available [facility] (Outpatient) [address] [place], [address], 10/13/2023 20:29:31 10/13/20 23 10/13/2023 LFTS (HEPA TIC PANEL ) ALT 18 U/L 0-40 Not Available [facility] (Outpatient) [address] [place], [address], 10/13/2023 20:29:31 10/13/20 23 10/13/2023 LFTS (HEPA TIC PANEL ) total protein 6.8 g/dL 6.5-8. 0 Not Available [facility] (Outpatient) [address] [place], [address], 10/13/2023 20:29:31 10/13/20 23 10/13/2023 LFTS (HEPA TIC PANEL ) albumin 4.7 g/dL 3.9-4. 8 Not Available [facility] (Outpatient) [address] [place], [address], 10/13/2023 20:29:31 10/13/20 23 10/13/2023 LFTS (HEPA TIC PANEL ) globulin 2.1 g/dL 1-4.8 Not Available [facility] (Outpatient) [address] [place], [address], 10/13/2023 20:29:31 10/13/20 23 10/13/2023 LFTS (HEPA TIC PANEL ) A/G ratio 2.24 ratio 1.00-4 .80 Not Available [facility] (Outpatient) [address] [place], [address], 10/13/2023 20:29:31 10/13/20 23 10/13/2023 ACETA MINOP HEN LEVEL acetaminophe n <5.0 ug/mL 15.0-3 0.0 low Not Available [facility] (Outpatient) [address] [place], [address], 10/13/2023 20:33:40 10/13/20 23 10/13/2023 NEREIDA OL, BLOOD ethanol 255 mg/dL <10 high Not Available [facility] (Outpatient) [address] [place], [address], 10/13/2023 20:33:43 10/13/20 23 10/13/2023 SALIC YLATE S salicylates <0.3 mg/dL 2.8-19 .9 low Not Available [facility] (Outpatient) [address] [place], [address], 10/13/2023 20:33:44 09/28/20 17 09/28/2017 audio gram No observ ation record ed. [email or web address] Not Available 2016 10:10:52 10/17/20 17 10/17/2017 XR, shoul jimmy No observ ation record ed. [facility] (Outpt Imaging) [address] [place], [address], 10/24/2017 09:57:50 06/01/20 20 06/01/2020 XR, hip No observ ation record ed. [email or web address] [facility] (Outpt Imaging) [address] [place], [address], 06/02/2020 17:00:04 07/08/20 20 07/08/2020 CT abdom [...] MD 0 CC Recipi ents: Annabelle Rich, ZONING ENGINEER - Fax Final result ANNABELLE RICH [email or web address] [facility] [address] [place] [address], [address], 07/13/2020 10:46:57 07/08/20 20 07/08/2020 CT, abdom en + pelvi s No observ ation record ed. [email or web address] [address], [address], 07/13/2020 10:46:58 07/09/20 20 07/09/2020 xr abdom [...] n is unchan ged from the CT quality cloth tester image with a paucit y of bowel [...] florez MD 0 Final [email or web address] [address] [place] [address], [address], 07/13/2020 10:46:58 07/11/20 20 07/11/2020 xr abdom [...] 0 Final result SBO ANNABELLE BRAEDEN [email or web address] [facility] [address] [place] [address], [address], 07/13/2020 10:46:58 03/31/20 21 03/31/2021 xr knee 4 or more views (righ t) This image report has been auto-f inaliz ed and has not been read by a Radiol ogist. Interp retati on has been includ ed in the [facility] er encoun ter note for this date of servic e. Final result ANNABELLE BRAEDEN [email or web address] [facility] [address] [place] [address], [id number], 03/31/2021 11:21:25 05/12/20 22 05/12/2022 CT, cervi [...] MD 2 Final result ANNABELLE HANSONZ [email or web address] [facility] [address] [place] [address] [place], [address], 05/13/2022 07:41:12 05/12/20 22 05/12/2022 CT, head, [...] Rodriguez MD 2 Final result ANNABELLE RICH [email or web address] [address] [place] [address], [id number], 05/13/2022 07:41:13 07/14/20 22 07/14/2022 CT, head, [...] MD 07/14/22 Final result etoh [email or web address] [place] [address] [facility] [address] [place] [address], [id number], 07/14/2022 15:29:25 07/24/20 22 07/24/2022 xr chest [...] a rule out pneumo jessica ANNABELLE RICH [email or web address] [facility] [address] [place], [address], 07/25/2022 09:59:45 07/27/20 23 07/27/2023 CT, head, w/o contr ast No observ ation record ed. [facility] (Medical Records) [address] [place], [address], 07/27/2023 13:17:11 07/27/20 23 07/27/2023 XR, chest No observ ation record ed. [facility] (Medical Records) [address] [place], [address], 07/27/2023 13:23:27 10/13/20 23 10/13/2023 CT, head, [...] 3 Final result ANNABELLE CARYLMAJO RICH [email or web address] [facility] [address] [facility], [place], [address], 10/16/2023 10:51:38 10/13/20 23 10/13/2023 CT, cervi [...] MBBS 3 Final result ANNABELLE RICH [email or web address] [facility] [address], [place], [address], 10/16/2023 10:51:38 Result Notes None recorded. Problems Name Problem SNOMED Code Status Onset Date Resolution Date Notes Provider Name and Address Organization Details Recorded Time Tobacco dependence, episodic 561470715 Completed 201612/25/2017 [place], [address], [facility] [place] 8 13:21:13 Ex-smoker 9331886 Active 2017 [place], [address], [facility] [place] 8 13:15:50 Deep venous thrombosis 401404066 Active 2017 [place], [address], [facility] [place] 8 13:15:53 Mixed hyperlipide kassi 161437245 [place], [address], [facility] 6 15:34:08 Neoplasm of uncertain behavior of skin 92420567 Completed 10/02/2013 ROLANDO [place], [address], [facility] 6 15:12:15 Allergic rhinitis caused by pollen 08216826 [place], [address], [facility] 6 15:12:15 Hearing loss 27939548 [place], [address], [facility] 6 15:34:08 Overweight 806244666 [place], [address], [facility] 6 15:34:08 Impacted cerumen 24993274 Completed 10/02/2013 Gen Aldana PA-C [address] [place], [place] [address], [address], [facility] 6 15:12:15 Chronic alcoholism in remission 362542441 Active Gen Aldana PA-C [address] [place] [address] [place], [address], [facility] 6 15:34:08 Anxiety state 112170366 Active Gen Aldana PA-C [address] [place] [address] [place], [address], [facility] 6 15:34:08 Insomnia 376704109 Active Gen Aldana PA-C [address] [place] [address] [place], [address], [facility] 6 15:12:15 Benign prostatic hyperplasia 313325226 Active Gen Aldana PA-C [address] [place], [place] [address], [address], [facility] 6 15:12:15 Problem Notes None recorded. Procedures Surgical History Date Name Laterality Status Provider Name and Address Organization Details Recorded Time 6 Smoking cessation counseling completed TAURUS Pop [facility] 09/23/2016 07:19:31 4 Destinee - Colonoscopy completed Sarkis Felipe MD [address] [place] [address], [phone], [facility] 04/25/2014 11:47:03 9 Hip Replacement completed Gen Aldana PA-C [address] [place] [address], [address], [facility] 12/02/2011 10:38:13 8 Arthroscopy completed Gen Aldana PA-C [address] [place] [address], [address], [facility] 12/02/2011 10:38:13 Imaging Results Imaging Date Name Status LastModified by Organiz ation Details LastModified Time 09/28/2017 audiogram completed lisa Information no t available 09/28/2017 10:10:52 10/17/2017 XR, shoulder completed [email or web address] [facility] (Outpt Imaging) [address] [place], [address], 10/24/2017 09:57:50 06/01/2020 XR, hip completed [email or web address] [facility] (Outpt Imaging) [address] , [place], [address], 06/02/2020 17:00:04 07/08/2020 CT abdomen/pelvis with contrast completed [address] [facility] [address] [place] [address], [address], 07/13/2020 10:46:57 07/08/2020 CT, abdomen + pelvis completed [address], [address], 07/13/2020 10:46:58 07/09/2020 xr abdomen series supine with decubitis/erec t and single view chest completed [address] [facility] [address] [place] [address], [address], 07/13/2020 10:46:58 07/11/2020 xr abdomen series supine with decubitis/erec t and single view chest completed [address] [facility] [address] [place] [address], [address], 07/13/2020 10:46:58 03/31/2021 xr knee 4 or more views (right) completed [address] [facility] [address] [place] [address], [address], 03/31/2021 11:21:25 05/12/2022 CT, cervical spine, w/o contrast completed [address] [facility] [address] [place] [address], [address], 05/13/2022 07:41:12 05/12/2022 CT, head, w/o contrast completed [address] [facility] [address] [place] [address], [address], 05/13/2022 07:41:13 07/14/2022 CT, head, w/o contrast completed [address] [facility] [address] [place] [address], [address], 07/14/2022 15:29:25 07/24/2022 xr chest Pa and lateral 2 views completed [email or web address] [facility] [address] [place] [address], [address], 07/25/2022 09:59:45 07/27/2023 CT, head, w/o contrast completed [facility] (Medical Records) [address] [place] [address], [address], 07/27/2023 13:17:11 07/27/2023 XR, chest completed [facility] (Medical Records) [address] [place] [address], [address], 07/27/2023 13:23:27 10/13/2023 CT, head, w/o contrast completed [address] [facility] [address] [place] [address], [address], 10/16/2023 10:51:38 10/13/2023 CT, cervical spine, w/o contrast completed [address] [facility] [address] [place] [address], [address], 10/16/2023 10:51:38 Procedure Notes None recorded. Medical [...] DateTime 04/03/2017 173.36 cm Gen Aldana PA-C [address] [place] [address], [address], [facility] 04/03/2017 16:40:25 Date Recorded Body height Body weight Body mass index (BMI) Heart rate Systolic blood pressure Diastolic blood pressure Provider Name and Address Organization Details Last Updated DateTime 7 173.36 cm 17008.9 2 g 29.3 kg/m2 72 /min 112 mm[Hg] 68 mm[Hg] Patdarren Henry [facility] 7 13:11:52 Date Recorded Body height Body mass index (BMI) Body weight Heart rate Systolic blood pressure Diastolic blood pressure Provider Name and Address Organization Details Last Updated DateTime 7 173.36 cm 27.1 kg/m2 53017.1 3 g 80 /min 98 mm[Hg] 72 mm[Hg] Cassandra Horton MA [facility] 7 07:30:37 Date Recorded Body height Body mass index (BMI) Body weight Heart rate Oxygen saturation Oxygen saturation in Arterial blood by Pulse oximetry Systolic blood pressure Diastolic blood pressure Provider Name and Address Organization Details Last Updated DateTime 8 173.36 cm 27.2 kg/m2 62413.3 3 g 81 /min 94 % 94 % 128 mm[Hg] 80 mm[Hg] Sharon Pugh [facility] 8 12:44:42 Social History Question Answer Notes LastModified by Organizat ion Details LastModified Time Tobacco Smoking Status [facility] 10/24/2017 07:29:04 Do You Have [...] 1986, Aneudy 1991, Rolando 1994 (live In [place]) Information not available 12/02/2011 Seat Belts Used [...] [email or web address] Not available 2015 15:12:54 Father Malignant neoplasm of prostate 40 57 mets to colon (previ ously record ed as Cancer - Prosta te) [id number] Not available 06/24/2013 03:00:24 Notes:paternal uncles 6 0, 61 Medical History Condition Response Benign Prostatic Hypertrophy Y Hyperlipidemia Y Hearing Loss Y Immunizations Vaccine Type Date Status Note Provider Nam e and Address Organization Details Recorded Time Influenza, split virus, trivalent, preservative 2 completed Not Available [facility] 11/30/2019 02:27:10 Influenza, split virus, trivalent, PF 3 completed Not Available [facility] 11/30/2019 02:39:40 Hep B, unspecified formulation 9 completed JULIETA Arellano [facility] 12/27/2011 08:14:47 Hep B, unspecified formulation 0 completed JULIETA Arellano [facility] 12/27/2011 08:14:47 Td(adult) unspecified formulation 9 completed JULIETA Arellano, [facility] 12/27/2011 08:14:47 Hep B, unspecified formulation 9 completed JULIETA Arellano, [facility] 12/27/2011 08:14:47 Influenza, split virus, quadrivalent, PF 6 completed Not Available [facility] 11/30/2019 02:36:28 Influenza, split virus, quadrivalent, PF 6 completed Not Available [facility] 11/30/2019 02:30:31 Influenza, split virus, quadrivalent, preservative 8 completed Sharon govea, [facility] 12/25/2017 12:43:46 Past Encounters Encounter ID Performer Location Encounter Start Date Encounter Closed Date Diagnosis/Indication Diagnosis SNOMED-CT Code Diagnosis ICD10 Code Diagnosis Note [id number] ROLANDO Holloway [facility], OFFICE [address] [place] [address] [place] [address] 12/02/2011 09:47:31 12/02/2011 10:56:24 [id number] [facility], OFFICE [address] [place] [address] [place] [address] 02/09/2012 14:08:52 02/09/2012 15:11:09 [id number] [facility], OFFICE [address] [place] [address] [place] [address] 04/12/2012 13:01:36 04/12/2012 13:33:44 [id number] Physical Therapy, [address] [facility] [place] [address] 04/24/2012 09:51:29 04/25/2012 10:17:46 [id number] Physical Therapy, [place] [address] [facility] [place] [address] 04/25/2012 10:42:50 04/27/2012 08:34:26 [id number] ROLANDO Holloway, [facility], OFFICE [address] [place] [address] [facility] [place] [address] 10/18/2012 12:52:30 10/18/2012 13:45:45 [id number] JULIETA Arellano [facility], OFFICE [address] [place] [address] JOBY cortes [address] 01/15/2013 08:55:20 01/15/2013 09:55:36 [id number] Gen Aldana PA-C [facility], OFFICE [address] [facility] [place] [address] 04/16/2013 16:10:42 04/17/2013 11:53:30 [id number] Poppy Reduntain [facility], OFFICE [address] [facility] [place] [address] 10/03/2013 16:14:50 10/03/2013 16:56:49 Influenza vaccine needed 3174857493 106 Tremor 60721461 I reassured pt that his tremor is [...] this visit. Chronic al coholism in remission 029929432 Anxiety is significan t comorbidit y that has driven drinking in past. Congratula lucho pt on again quitting EtOH, encouraged him to continue. Continue with therapy. Going to AA, recommende d continuing . Elevated blood-pressure reading without diagnosis of hypertension 111587191 BP reading high today, goal under 140/90. DASH diet handout given. Recommend regular vigorous exercise, gradual weight loss. Instructed to take BPs 2-3 times weekly at home or at a pharmacy and keep a log. Follow up in 1-2 months for a PHA and bring log and BP equipment. Discussed starting medication if still not controlled . Screening for malignant neoplasm of colon 325319890 [id number] [facility], OFFICE [address] [facility] [place] [address] 01/17/2014 17:37:10 01/20/2014 08:48:11 Injury of nerve of upper extremity 301736061 [id number] Chela Cueto LPN , [facility], OFFICE [address] [place] [address] 02/13/2014 08:24:43 02/13/2014 09:31:36 Cervical radiculopathy 19364394 Left C7 radiculopa thy. Has had MRI. Refer to Dr Perrin for surgical consult. Recommende d calling PSS to schedule injection as well. Restart gabapentin at 600mg am and qhs. Trial muscle relaxers. Follow up with me as needed. [id number] [facility] [address] [place] [address] 04/25/2014 09:55:50 04/25/2014 12:26:29 [id number] Gen Aldana PA-C , [facility], OFFICE [address] [place] [address] 04/02/2015 11:15:54 04/02/2015 11:53:41 Chronic alcoholism in remission 531843254 Anxiety is significan t comorbidit y that has driven drinking. Congratula lucho pt on again quitting EtOH, encouraged him to continue. Continue with therapy. Restart med. He took handouts on Vipassana meditation , which his therapist has strongly recommende se[place]. I also suggested he try this and discussed basic info about courses. Anxiety state 207128136 Increased anxiety after quitting drinking, signif dual diagnosis. Encouraged to continue; continue with therapist. Continue AA, restart citalopram which helped in the past. Overweight 109594676 I reassured pt that his weight loss is completely reasonable given that he has mostly stopped drinking beer and also does heavy physical work. BMI actually still slightly in overweight range at 26. [id number] Cyn Moya D.O. , [facility], OFFICE [address] [place] [address] 08/19/2015 16:01:06 08/19/2015 16:38:22 Alcohol dependence 39803419 F10.20 I encouraged Aneudy to continue to work with [employer] for an inpatient detox bed for alcohol. Discourage d him from attempting to do this at home due to potential safety concerns. No evidence of withdrawal at this time. He will let us know if he needs any additional assistance . [id number] Gen Aldana PA-C , [facility], OFFICE [address] [place] [address] 01/22/2016 14:21:37 01/22/2016 15:29:51 Adult health examination 639774578 Z00.00 see Risk Assessment and Lifestyle Change Counseling section above. UTD colonoscop y, due 2018. Vaccines UTD. Counseling 834770123 Z71 .9 Active or passive immunization 030218370 Z23 Mixed hyperlipidemia 267 852890 E78.2 LDL = 157, not on statin, OK to stay off considerin g poor evidence for benefit. Overweight 346036757 E66 .3 Regained 24 lbs since last visit less than a year ago. Diet, exercise, weight loss. Hearing loss 55113061 H9 1.93 lifelong as result of premature [...] Encouraged to continue citalopram and with therapist. Pain of oulder region 50441928 M25.512 L shoulder pain after workouts with excellent ROM without pain on exam today. Location of pain suggests bicipital tendinitis but not confirmed with special testing, which makes RC disorder seem more likely. I suggested PT but he would prefer to work on RC exercises and contact me for referral later if desired. [id number] ROLANDO Holloway, [facility], OFFICE [address] [place] [address] 09/23/2016 07:01:06 09/23/2016 07:47:56 Active or passive immunization 046369178 Z23 Cigarette smoker 2243406 7 F17.210 Tobacco user 653410688 Z 72.0 chews. will provide 7mg patch as requested. Follow up 2 weeks. Anxiety state F41.1 signif dual diagnosis. Encouraged to continue citalopram and restart with therapist- -not interested in the latter. Continuous chronic alcoholism 884843340 F10.20 Anxiety is significan t comorbidit y [...] Follow up with me in two weeks. [id number] JULIETA Walton, [facility], OFFICE [address] [place] [place] [address] 12/13/2016 12:37:36 12/13/2016 13:19:41 Continuous chronic alcoholism 561015456 F10.20 Anxiety is significan t comorbidit y that has driven drinking. he says he has not been drinking for the past week. He did show up at the ER intoxicate d twice during the month that vivitrol was supposed to be effective (he reports getting his first shot 11/08 at [facility]). Still on SSRI and not at all interested in restarting therapy or AA. As he has at least tolerated it in the past, will again provide vivitrol. I discussed with nursing who confirmed with Jessica that he has no copay nor is a PA needed--or dered, to be administer ed today. Follow up for next shot in four weeks. Anxiety state 899369423 F41.1 signif dual diagnosis. Encouraged to continue citalopram . He is not interested in therapy. He expresses interest in Vipassana meditation --I gave him website addresses and a pamphlet. Cigarette smoker 9137004 7 F17.210 Tobacco user 372329052 Z 72.0 chews. will provide 14mg patch as requested. Follow up 2 weeks. [id number] JULIETA Walton, [facility], OFFICE [address] [place] [address] 01/10/2017 12:53:15 01/10/2017 13:17:37 Chronic alcoholism in remission 723131833 F10.21 [id number] JULIETA Byers, [facility], OFFICE [address] [facility] [place] [address] 02/07/2017 14:25:54 02/07/2017 16:14:21 Alcohol dependence 01107649 F10.20 [id number] Nyasia Taylor LPN , [facility], OFFICE [address] [facility] [place] [address] 03/07/2017 12:50:45 03/07/2017 13:18:52 Chronic alcoholism in remission 314057746 F10.21 [id number] Nettie Samaniego LPN , [facility], OFFICE [address] [facility] [place] [address] 04/03/2017 12:36:59 04/03/2017 13:22:05 Chronic alcoholism in remission 798835495 F10.21 [id number] eGn Aldana PA-C , [facility], OFFICE [address] [facility] [place] [address] 04/07/2017 12:39:18 04/07/2017 13:51:06 Adult health examination 071986497 Z00.00 see Risk Assessment and Lifestyle Change Counseling section above. Colonoscop y in 2013 with 1.2 cm sessile polyp with FH early colon cancer. Wade was to repeat in 1 year due to this and FH. Ordered. Vaccines UTD. Adding on hep C test. Counseling 934185512 Z71 .9 Chronic al coholism in remission 096781332 F10.21 doing well on vivitrol for last couple of months, continue. Impaired f asting glycemia 005150895 R73.01 =104 in 2011, recheck now. Screening for disorder 309270753 Z11.59 Tick bite without infection 615774606 W57.XXXA unlikely he has Lyme disease given [...] checks. Screening for malignant neoplasm of colon 713600594 Z12.11 Referral for a DIRECT booked colonoscop y. This patient is a healthy ASA Class 1 or 2 patient (only mild systemic disease), or a STABLE, well controlled insulin dependent diabetic. They do not have serious cardiac disease ie RI/angiopl asty within 1 year, symptomati c CHF; renal failure with CKD 4 or 5; take Coumadin, Plavix, Aggrenox, etc. Tobacco de pendence, episodic 412346697 F17.290 chews tobacco. Will refill patches as requested, along with 2mg gum. From 3-10 minutes were spent in counseling on smoking cessation. [id number] Gen Aldana PA-C , [facility], OFFICE [address] [facility] [place] [address] 10/24/2017 07:13:17 10/24/2017 07:55:23 Partial thickness rotator cuff tear 221009606 M75.102 significan t pain and limitation in L shoulder 12 days after injury in a fall. Suspect RC tear requiring surgery. Pt in [facility] until late this month. Will order ortho referral for early November. Meanwhile, continue meloxicam. Insomnia 915503153 G47.0 0 OK to restart trazodone 100mg at bedtime. Chronic al coholism in remission 873788516 F10.21 Pt failed Vivitrol, now in [facility], currently sober. He is not interested in returning to [facility]. I informed him that suboxone is only for opiate addiction, which he has never had. He will be discharged from [facility] at end of the month. I asked him to follow up with me in a month or so. Willing to try Campral for cravings, ordered. Nicotine dependence 5629 4008 F17.200 on patch while at [facility], chews tobacco. Thinks he will want patch when he's d/c'd. [id number] Gen Aldana PA-C , [facility], OFFICE [address] [facility] [place] [address] 12/25/2017 12:28:47 12/25/2017 13:18:30 Partial thickness rotator cuff tear 272435662 M75.102 Injury 10/2017. I suspected RC tear requiring surgery, referred to ortho--he is finally having consult appt tomorrow. Chronic al coholism in remission 242554765 F10.21 Pt failed Vivitrol, now reports sober for last 2 months or so. He is not interested in returning to Vivitrol. 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 Homelessne ss makes his sobriety more precarious . Ex-smoker 1709202 Z87.89 1 quit 10/2017, needs more patches--w ill refill. Deep venou s thrombosis 671308296 I82.409 x2, first provoked in 2008, but multivesse l and unprovoked in 08/2017. Refilling Eliquis. Chronic neck pain 431015 5348 107 M54.2 discussed- -I recommende d stopping [...] Sosa Member ID Guarantor Name 03/07/2017 1 [facility] [employer] - TOGETHER (MEDICAID HMO) Aneudy Andrade [id number] Aneudy Andrade 04/03/2017 1 [facility] [employer] - [employer] (MEDICAID HMO) Aneudy Andrade [id number] Aneudy Andrade 04/07/2017 1 [facility] [employer] - TOGET[employer] (MEDICAID HMO) Aneudy Andrade [id number] Aneudy Andrade 10/24/2017 1 [facility] [employer] - TOGET[employer] (MEDICAID HMO) Aneudy Andrade [id number] Aneudy Andrade 12/25/2017 1 [facility] [employer] - TO[employer] (MEDICAID HMO) Aneudy Andrade [id number] Aneudy Andrade Notes Date Note Type Note Provider Name and Address Organization Details Recorded Time 04/03/2017 text/html Vivitrol injection Nettie [facility]go LPN [facility] 04/04/2017 10:17:06 04/07/2017 text/html Physical Exam/MaleReported [...] recent LDL = 141. Gen Aldana PA-C [address] [place] [address], [address], [facility] 04/07/2017 13:55:18 10/24/2017 text/html here to discuss L shoulder x-ray done at [facility]. He says this hurt for about 6 mo, but then he fell when intoxicated and hit the shoulder on the curb. This was 10/13. Pain is persisting. EtOH: currently sober. He is here from [facility] and will go back there. He is no longer on vivitrol--last shot here was over 6 mo ago and he has been lost to followup since, except for the occasional ER note, mostly suggesting intoxication. insomnia: wants trazodone again. Gen Aldana PA-C [address] [place], [address], [facility] 10/24/2017 08:03:28 12/25/2017 text/html Wants a letter f or housing to help him get an apartment. he has been living outside for 1.5 years, except he got himself admitted to [facility] when it was coldest. He thinks he needs to tell them he's disabled, but he really is capable of working. The closest thing to disability is his ongoing struggles with EtOH. L shoulder: says he will be seeing Beverly tomorrow about this for the first time. He had seen me 10/24 and I referred. He was in [facility] at the time so could [...] in not drinking. Gen Aldana PA-C [address] [place], [address], [facility] 12/25/2017 13:22:57
[2025-03-10 14:34] VITALS: BP 113/68; PULSE 96; RESP 18; TEMP 37.3; O2SAT 95
== END 2025-03-10 14:35 | disposition home or self-care (01) ==
PROVIDERS: Emergency Provider Emergency Medicine Emergency Medical Services
DX: F10.129 Alcohol abuse with intoxication, unspecified (principal); Y90.8 Blood alcohol level of 240 mg/100 ml or more; F33.1 Major depressive disorder, recurrent, moderate; Z71.41 Alcohol abuse counseling and surveillance of alcoholic; Z86.718 Personal history of other venous thrombosis and embolism; Z79.01 Long term (current) use of anticoagulants; Z79.899 Other long term (current) drug therapy; Z87.891 Personal history of nicotine dependence
CPT/HCPCS: 99283

== ENCOUNTER 2025-04-27 08:23 | Emergency (ER) | payer MEDICAID, SELFPAY ==
--- NOTE | ~2025-04-27 | CT_ITS ---
CLINICAL HISTORY: cough, hx dvt, low O2 r o PE CT angiography chest with contrast. 3D Postprocessing. Comparison: CT - CT ANGIO CHEST PE PROTOCOL - 04/27/25 11:23 EDT Findings: The heart is normal size. RV/LV ratio is normal. The thoracic aorta is normal caliber. No acute pulmonary embolus. The visualized thyroid and mediastinum are unremarkable. No evidence of pneumonia or edema. 3 mm nodule within the right upper lobe laterally (image 40). The upper abdomen is unremarkable. The bones are intact. IMPRESSION: 1. No pulmonary embolus. 2. Small right upper lobe pulmonary nodule. Optional follow-up chest CT in 12 months could be performed for further assessment, if clinically indicated. This document has been electronically signed by: Adrian Santiago MD on 04/27/2025 13:20:38
--- NOTE | ~2025-04-27 | XR_ITS ---
CLINICAL HISTORY: cough, etoh ?aspiration 1 view chest x-ray Comparison: CR - XR CHEST 1V - 01/14/25 02:40 EST Findings: Lungs are well inflated. Cardiac silhouette is within normal limits. No focal areas of consolidation. No pleural effusion. IMPRESSION: 1. No acute findings. This document has been electronically signed by: Brandon Rosado MD on 04/27/2025 09:27:42
[2025-04-27 08:33] VITALS: BP 131/89; BP 150/92; PULSE 90; PULSE 94; RESP 16; TEMP 36.7; O2SAT 92; O2SAT 94; BMI 26.4
--- NOTE | 2025-04-27 08:38 | ED.ALCOHOL ---
HPI - Alcohol General Chief Complaint: ETOH/Substance Use Stated Complaint: INTOXICATION,WANTS DETOX PER EMS Time Seen by Provider: 04/27/25 08:33 Source: patient and EMS Mode of arrival: EMS Limitations: no limitations History of Present Illness ED Provider: CARLEY REGALADO PA-C HPI narrative: 64 year old male with pmhx significant for alcohol use disorder and DVT on Eliqius presents to the ED today via EMS requesting detox from alcohol. Visibly intoxicated with odor of alcohol noted to breath. He states ?I do not feel right?. Reports cough x3 days. States this is not typical for him. He endorses associated chest discomfort and shortness of breath. He does have a history of DVT and reports compliance with his Eliquis. When asked when his last dose was, he can not recall if it was last night or this morning. He admits to drinking a qt of vodka over the last 24 hours. Denies daily EtOH consumption. Denies any illicit substance use. Denies SI/HI. Denies history of ETOH withdrawal or withdrawal seizures. He is requesting detox. Denies fever, chills, nausea, vomiting, abdominal pain. Related Data Home Medications ?Medication ?Instructions ?Recorded ?Confirmed acetaminophen 500 mg tablet 500 mg PO Q6H PRN mild pain 08/23/24 04/27/25 (Acetaminophen Pain Relief) apixaban 5 mg tablet (Eliquis) 5 mg PO BID 10/01/24 04/27/25 hydroxyzine HCl 25 mg tablet 50 mg PO BID 10/01/24 10/01/24 nicotine (polacrilex) 4 mg gum 4 mg PO NEEDED 10/01/24 04/27/25 Previous Rx's ?Medication ?Instructions ?Recorded apixaban 5 mg tablet (Eliquis) 5 mg PO BID #30 tabs 10/02/24 Allergies Allergy/AdvReac Type Severity Reaction Status Date / Time pollen extracts [POLLEN] Allergy Unknown UNKNOWN Verified 04/27/25 08:35 Review of Systems Review of Systems: Constitutional: No fever, chills, fatigue, night sweats, weight changes ENT/Mouth: No ear pain, hearing loss, nasal congestion, sinus pain, rhinorrhea, sore throat Eyes: No eye pain, swelling, redness, vision changes, discharge Cardio: No chest pain, palpitations, KLEIN, orthopnea, peripheral edema, +chest discomfort Pulm: No sputum, wheezing, dyspnea, hemoptysis, +cough +sob GI: No nausea, vomiting, hematemesis, abdominal pain, diarrhea, constipation, hematochezia, melena : No irregular bleeding, dysuria, frequency, urgency, hesitancy, hematuria, flank pain, urinary flow changes, urinary incontinence or retention MSK: No back pain, neck pain, joint pain, myalgias Skin: No lesions, rashes Neuro: No weakness, numbness, paresthesias, LOC, dizziness, headache Psych: No anxiety/panic, depression, SI/HI, AH/VH All other systems reviewed and are negative. FOR[facility] Past Medical History Attestation statement: The following information was validated with the patient. Source: old records reviewed and nursing notes reviewed Medical History DVT (deep venous thrombosis) Alcohol use disorder, moderate, dependence Social History Social History Household Members: None Housing: Apartment Do you presently have visiting nurse or other home services: No Unable to assess alcohol history related to: Refusing to respond Alcohol intake: current Alcohol intake frequency: 3 or more drinks per day Alcohol type: hard liquor Patient Tobacco Use Status: Former Tobacco user Tobacco use type: Cigarette Smoked in Last 30 Days: No Use of substances other than those prescribed or required for medical reasons: No Advance Directives: No Advance Directives Information Provided: Yes service: No Physical Exam ED Vital Signs: Vital Signs - 24 hr 04/28/25 05:56 04/28/25 07:22 04/28/25 07:41 Temperature 97.9 F 98.2 F 98.3 F Pulse Rate 75 90 89 Respiratory Rate 18 14 19 Blood Pressure 130/84 133/89 133/89 Pulse Oximetry 96 95 95 Oxygen Delivery Method Room Air Room Air Room Air BMI result Body Mass Index 26.4 Satting 94% on room air, afebrile General: Visibly intoxicated, odor of alcohol noted to breath Skin: Warm, dry, intact. No rashes or lesions. Head: Normocephalic, atraumatic. EENT: Hearing is intact b/l. Conjunctiva clear. Pupils constricted bilaterally. PERRLA. EOM intact. Moist mucous membranes.? Neck: Supple without LAD Cardiac: Chest wall symmetric. RRR Lungs: Normal respiratory effort without accessory muscle use. CTA bilaterally Abdomen: Soft, non-tender, non-distended. No rebound tenderness or guarding. Positive BS x4. Back: No midline spinous or paraspinal tenderness. No step off deformity. Ext: Upper and lower extremities atraumatic, without tenderness, deformity, swelling or erythema. Moving all extremities. No calf tenderness bilaterally. no pitting edema. Neuro: AOx3. Normal speech. Ambulating with steady gait. Course Course Course Narrative: 1110 -- CBC without leukocytosis or left shift. No anemia. H&H stable. Chemistry showing hyponatremia to 149 which appears to be his baseline, possibly secondary to ETOH abuse. No acute electrolyte abnormality requiring intervention. Liver function WNL. His chest x-ray does not demonstrate cardiomegaly. No infiltrate or consolidation. No effusion. viral swabs negative. ethanol 348. Salicylates, acetaminophen undetectable. Urine and urine drug screen pending. > Patient appears to be poor historian and is intoxicated. Unclear if he is compliant with his Eliquis. Noted to desat to 91% while I was in the room. D-dimer 220 however given history, will order CTA chest to rule out PE. 1405 -- CTA chest without evidence of PE. There is a finding of incidental pulmonary nodule, recommending follow up CT in 12 months. Urine negative for infection. Urine drug screen negative. > at this time patient is medically cleared. Awaiting addiction med consultation. > CIWA 14. 2 mg p.o. Ativan ordered 1445 -- spoke with Maisha from care team. Patient will be [facility] bed search for detox. It is possible that he will have a bed available today or tomorrow. Will continue to monitor for discharge needs. Reevaluation(s) Reevaluation #1: Speaking with Maisha Ann from the care team/recovery team, the plan is for the patient to be discharged to [facility] in the morning, they will provide a LyftTime: 19:54 Date: 04/27/25 Provider: CLEMENTE Fallon Patient in physician observation for psychiatric evaluation.? No acute events reported overnight. No current complaints. VS stable.? Patient is in bed search status/pending CARE team evaluation. Will continue to monitor. Time: 19:53 Reevaluation #2: Time: 07:19 Date: 04/28/25 Provider: Reji Washington MD Physician observation ended at 07:19 hours.Patient in physician observation for case management needs. No acute events reported overnight.? Vital signs stable. Patient was seen by care team and has a detox bed at [facility]. Care team is going to provide a Lyft for the patient. Patient was discharged with printed and verbal instructions. Medical Decision Making Medical Decision Making MDM Narrative: 64 year old male with pmhx significant for alcohol use disorder and DVT on Eliqius presents to the ED today via EMS requesting detox from alcohol. Differential diagnosis includes anemia, electrolyte abnormality, alcohol abuse, alcohol intoxication, alcohol withdrawal, aspiration pneumonia, pneumonia, bronchitis, PE, polysubstance abuse Presentation not consistent with acute organic causes to include delirium, dementia or drug induced disorders (acute ingestions or withdrawal; no evidence of toxidrome).? Will consult addiction medicine. Will also obtain labs/ imaging for medical clearance. Plan: labs, EKG, ASA/APAP levels, ETOH level, UDS, CXR, viral swabs, addiction medicine, reassessment Differential Diagnosis Differential Diagnoses: The differential diagnosis associated with the presentation includes As above Lab Data [facility] Lab Attestation statement: I reviewed the patient's lab results. as above. 04/27/25 08:53 04/27/25 08:53 Labs: Lab Results 04/27/25 04/27/25 04/27/25 Range/Units 08:53 09:17 13:30 WBC 4.6 L (4.8-10.8) X10*3/uL RBC 4.70 (4.60-5.80) X10*6/uL Hgb 15.3 (14.0-18.0) g/dl Hct 43.7 (42.0-52.0) % MCV 93.0 (80.0-98.0) fL MCH 32.6 (27.0-33.0) pg MCHC 35.0 (31.0-36.0) g/dl RDW 14.3 (11.0-16.0) % Plt Count 286 (160-400) X10*3/uL MPV 7.7 L (9.4-12.4) fL Immature Gran % (Auto) 0.9 H (0.0-0.4) % Neut % (Auto) 55.1 (45-73) % Lymph % (Auto) 33.6 (20-40) % [place] % (Auto) 8.7 (2-11) % Eos % (Auto) 1.3 (0-4) % Baso % (Auto) 0.4 (0-2) % Lymph # (Auto) 1.5 (1.2-4.9) X10*3/uL [place] # (Auto) 0.4 (0.1-1.2) X10*3/uL Eos # (Auto) 0.1 (0.0-0.4) X10*3/uL Baso # (Auto) 0.0 (0.0-0.2) X10*3/uL Abs Immat Gran (auto) 0.04 H (0.00-0.03) X10*3/uL Absolute Neuts (auto) 2.5 (2.0-8.3) x10*3/uL Absolute Nucleated RBC 0.000 (0.0-0.012) X10*3/uL Nucleated RBC % (auto) 0.0 (0.0-0.2) /100WBC D-Dimer High Sensitivty 220 NG/ML Sodium 149 H (135-145) mmol/L Potassium 3.7 (3.3-5.1) mmol/L Chloride 107 (96-108) mmol/L Carbon Dioxide 26 (22-29) mmol/L Anion Gap 20 (12-20) BUN 17 H (9-16) mg/dL Creatinine 1.03 (0.5-1.4) mg/dL Estim Creat Clear Calc 73.4 Estimated GFR > 60 Random Glucose 80 (60-115) mg/dL Calcium 9.0 (8.4-10.2) mg/dL Magnesium 2.2 (1.6-2.6) mg/dL Total Bilirubin 0.2 (0.0-1.0) mg/dL Direct Bilirubin < 0.2 (0.0-0.5) mg/dL AST 29 (5-37) U/L ALT 24 (0-40) U/L Alkaline Phosphatase 52 (39-117) U/L Total Protein 7.1 (6.5-8.0) g/dL Albumin 4.7 (3.5-5.0) g/dL Urine Color Yellow Urine Appearance Clear Urine pH 5.0 (5.0-9.0) Ur Specific [place] >= 1.030 H (1.005-1.025) Urine Protein Negative (Neg-Trace) mg/dL Urine Glucose (UA) Negative (Negative) mg/dL Urine Ketones Trace (Negative) mg/dL Urine Blood Negative (Negative) Urine Nitrite Negative (Negative) Ur Leukocyte Esterase Negative (Negative) Salicylates < 5.0 L (15-30) mg/dL Urine Opiates Screen Not Detected (Not Detect) Ur Buprenorphine Scrn Not Detected (Not Detect) ng/mL Ur Oxycodone Screen Not Detected (Not Detect) ng/mL Urine Methadone Screen Not Detected (Not Detect) ng/mL Urine Fentanyl Screen Not Detected (Not Detect) Acetaminophen < 3 (<30) mcg/mL Ur Barbiturates Screen Not Detected (Not Detect) Ur Phencyclidine Scrn Not Detected (Not Detect) Ur Amphetamines Screen Not Detected (Not Detect) U Benzodiazepines Scrn Not Detected (Not Detect) Urine Cocaine Screen Not Detected (Not Detect) U Marijuana (THC) Screen Not Detected (Not Detect) Ethyl Alcohol 348 H* mg/dL Influenza Type A (PCR) NEGATIVE (Negative) Influenza Type B (PCR) NEGATIVE (Negative) RSV RNA Qual (PCR) NEGATIVE (Negative) SARS-CoV-2 RNA (RT-PCR) NEGATIVE (Negative) Independent Interpretation I performed an independent interpretation of an: Plain X-Ray Interpretation: CXR without infiltrate or consolidation CT angio chest without PE Radiology Impression Discussion of test interpretation with radiology: I have reviewed the radiologist's reading. Radiologist Impression: Date of Service: 04/27/25 Procedure(s): CT angio chest PE protocol Accession Number(s): [id number] cc: Physician,Unknown ; Carley Regalado~ Report Number: [id number]: Total DLP = 263.00 mGy-cm CLINICAL HISTORY: cough, hx dvt, low O2 r o PE CT angiography chest with contrast. 3D Postprocessing. Comparison: CT - CT ANGIO CHEST PE PROTOCOL - 04/27/25 11:23 EDT Findings: The heart is normal size. RV/LV ratio is normal. The thoracic aorta is normal caliber. No acute pulmonary embolus. The visualized thyroid and mediastinum are unremarkable. No evidence of pneumonia or edema. 3 mm nodule within the right upper lobe laterally (image 40). The upper abdomen is unremarkable. The bones are intact. IMPRESSION: 1. No pulmonary embolus. 2. Small right upper lobe pulmonary nodule. Optional follow-up chest CT in 12 months could be performed for further assessment, if clinically indicated. This document has been electronically signed by: Adrian Santiago MD on 04/27/2025 13:20:38 Date of Service: 04/27/25 Procedure(s): XR chest 1V Accession Number(s): [id number] cc: Physician,Unknown ; Carley Regalado~ CLINICAL HISTORY: cough, etoh ?aspiration 1 view chest x-ray Comparison: CR - XR CHEST 1V - 01/14/25 02:40 EST Findings: Lungs are well inflated. Cardiac silhouette is within normal limits. No focal areas of consolidation. No pleural effusion. IMPRESSION: 1. No acute findings. This document has been electronically signed by: Brandon Rosado MD on 04/27/2025 09:27:42 Independent Historian Clinical information obtained from an independent historian. History obtained from or confirmed by: EMS External Record Review External record reviewed: Inpatient record Chronic Conditions Patient?s care impacted by: Other (alcohol use disorder) Social Determinants Patient?s care significantly limited by Social Determinants of Health including: Other Social Determinant of Health Medications Administered Discontinued Medications Generic Name Dose Route Start Last Admin Trade Name Freq PRN Reason Stop Dose Admin Acetaminophen 975 mg 04/28/25 06:00 04/28/25 06:35 Acetaminophen 325 Mg Tablet PO 04/28/25 06:01 975 mg ONCE ONE Administration Apixaban 5 mg 04/28/25 09:00 04/28/25 06:34 Apixaban 5 Mg Tablet PO 5 mg BID MIGUEL Administration Iohexol 100 ml 04/27/25 11:34 04/27/25 11:35 Iohexol 350 Mg/Ml 100 Ml Infus..Btl IV 04/27/25 11:35 65 ml ONCE ONE Administration Lorazepam 2 mg 04/27/25 13:23 04/27/25 13:38 Lorazepam 1 Mg Tablet PO 2 mg QID PRN Administration Alcohol Withdrawal Nicotine 14 mg 04/27/25 13:07 04/27/25 13:31 Nicotine 14 Mg Patch.Td24 TRANSDERMA 04/27/25 13:08 14 mg ONCE ONE Administration Discharge Plan Discharge Clinical Impression: Alcohol dependence, Incidental pulmonary nodule Patient Disposition: Xfer Other Transfer Details: [facility] facility, Lyft provided by care team Additional Instructions: Alcohol use disorder You were seen in the Emergency Department today for treatment of alcohol use disorder.? You have a bed at [facility], please follow the care team instructions. You had a CT scan of your chest while you here in the emergency department in you have a small right upper lobe pulmonary nodule. Radiologist recommending that you follow up with your doctor and get a follow-up chest CT in 12 months. Please review the CT report with your primary care doctor when you get out of detox to get follow-up care. CT angiography chest with contrast. 3D Postprocessing. Comparison: CT - CT ANGIO CHEST PE PROTOCOL - 04/27/25 11:23 EDT Findings: The heart is normal size. RV/LV ratio is normal. The thoracic aorta is normal caliber. No acute pulmonary embolus. The visualized thyroid and mediastinum are unremarkable. No evidence of pneumonia or edema. 3 mm nodule within the right upper lobe laterally (image 40). The upper abdomen is unremarkable. The bones are intact. IMPRESSION: 1. No pulmonary embolus. 2. Small right upper lobe pulmonary nodule. Optional follow-up chest CT in 12 months could be performed for further assessment, if clinically indicated. This document has been electronically signed by: Adrian Santiago MD on 04/27/2025 13:20:38 Prescriptions: No Action acetaminophen [Acetaminophen Pain Relief] 500 mg tablet 500 mg PO Q6H PRN (Reason: mild pain) nicotine (polacrilex) 4 mg gum 4 mg PO NEEDED hydroxyzine HCl 25 mg tablet 50 mg PO BID Eliquis 5 mg tablet 5 mg PO BID Eliquis 5 mg tablet 5 mg PO BID Qty: 30 0RF Interventions: ED Discharge Assessment Last Done: 04/28/25 07:41 Discharge Date/Time: 04/28/25 07:57 Print Language: Belarusian
[2025-04-27 08:40] VITALS: BP 131/89; PULSE 95; RESP 16; TEMP 36.7; O2SAT 94
[2025-04-27 08:57] LABS: MANUAL DIFF FLAG NO
[2025-04-27 08:59] LABS: Basophils Percent Auto 0.4 % (0-2); Eosinophils Absolute Auto 0.1 X10*3/uL (0.0-0.4); Eosinophils Percent Auto 1.3 % (0-4); Hematocrit 43.7 % (42.0-52.0); Hemoglobin 15.3 g/dl (14.0-18.0); Imm Gran Abs Auto 0.04 X10*3/uL (0.00-0.03); Imm Gran Pct Auto 0.9 % (0.0-0.4); Lymphocytes Absolute Auto 1.5 X10*3/uL (1.2-4.9); Lymphocytes Percent Auto 33.6 % (20-40); Mean Corpuscular Hemoglobin 32.6 pg (27.0-33.0); Mean Platelet Volume 7.7 fL (9.4-12.4); Monocytes Absolute Auto 0.4 X10*3/uL (0.1-1.2); Monocytes Percent Auto 8.7 % (2-11); Neutrophils Absolute Auto 2.5 x10*3/uL (2.0-8.3); Neutrophils Percent Auto 55.1 % (45-73); Platelet Count 286 X10*3/uL (160-400); Red Cell Distribution Width 14.3 % (11.0-16.0); White Blood Count 4.6 X10*3/uL (4.8-10.8)
[2025-04-27 09:06] LABS: D Dimer High Sensitivity 220 NG/ML
--- NOTE | 2025-04-27 09:14 | PC.NURSE ---
Report received. Taken over care at this time.
[2025-04-27 09:16] LABS: Alanine Aminotransferase 24 U/L (0-40); Albumin Level 4.7 g/dL (3.5-5.0); Alkaline Phosphatase 52 U/L (39-117); Anion Gap 20 (12-20); Aspartate Amino Transferase 29 U/L (5-37); Bilirubin Direct < 0.2 mg/dL (0.0-0.5); Bilirubin Total 0.2 mg/dL (0.0-1.0); Blood Urea Nitrogen 17 mg/dL (9-16); Carbon Dioxide 26 mmol/L (22-29); Chloride 107 mmol/L (96-108); Creatinine Clr Calc Pharmacy 73.4; Estimated Glomerular Filt Rate > 60; Ethanol 348 mg/dL; Glucose Random 80 mg/dL (60-115); Potassium 3.7 mmol/L (3.3-5.1); Sodium 149 mmol/L (135-145); Total Protein 7.1 g/dL (6.5-8.0)
[2025-04-27 09:22] LABS: Acetaminophen LAB < 3 mcg/mL (<30); Salicylate < 5.0 mg/dL (15-30)
[2025-04-27 10:05] LABS: Influenza A PCR NEGATIVE (Negative); Influenza B PCR NEGATIVE (Negative); Resp Syncy Virus RNA Qual PCR NEGATIVE (Negative); SARS COV2 PCR INHOUSE NEGATIVE (Negative)
[2025-04-27] MEDS: iohexoL 350 MG/ML 100 ML INFUS..BTL IV (11:35)
[2025-04-27 11:46] LABS: Magnesium 2.2 mg/dL (1.6-2.6)
[2025-04-27 11:52] VITALS: BP 102/69; PULSE 79; RESP 18; O2SAT 94
[2025-04-27 12:00] VITALS: BP 101/65; PULSE 83; RESP 18; O2SAT 95
[2025-04-27] MEDS: Nicotine 14 MG PATCH.TD24 TRANSDERMA (13:31)
[2025-04-27 13:37] LABS: Appearance Urine Clear; Color Urine Yellow; Glucose Urine UA Negative (Negative); Leukocyte Esterase Urine Negative (Negative); Nitrite Urine Negative (Negative); Specific Gravity - Urine >= 1.030 (1.005-1.025); Urine Blood Negative (Negative); Urine Ketones Trace mg/dL (Negative); Urine Protein Negative (Neg-Trace)
[2025-04-27] MEDS: LORazepam 1 MG TABLET 2 MG PO (13:38)
[2025-04-27 13:50] LABS: Amphetamine Screen Urine Not Detected (Not Detect); Barbiturates, Urine Not Detected (Not Detect); Benzodiazepines Screen Urine Not Detected (Not Detect); Buprenorphine Scr Not Detected (Not Detect); Cannabinoid Screen Urine Not Detected (Not Detect); Cocaine Screen Urine Not Detected (Not Detect); Fentanyl, urine Not Detected (Not Detect); Methadone Screen, Urine Not Detected (Not Detect); Opiate Screen Urine Not Detected (Not Detect); Oxycodone Screen Urine Not Detected (Not Detect); Phencyclidine Screen Urine Not Detected (Not Detect)
[2025-04-27 18:32] VITALS: BP 127/79; PULSE 107; RESP 16; TEMP 36.6; O2SAT 93
--- NOTE | 2025-04-27 19:19 | MHC.CARE ---
T/w called [facility] with no answer for detox, called [facility] and pt. is on waiting list, and called [facility], which declined him due to only starting drinking on Monday. (Did not meet criteria for detox.) After talking with pt., he is interested in staying local as he does not have transportation and would like to self-present to [facility] for 8am. T/w will add note to FYI list and pt. will be discharged in the morning and sent to [facility] by Reginald. T/w also gave pt. resources and a list of detoxes to call throughout the night if he changes his mind about [facility]. Pt. has medications with him at the nurses station that he should be sent with.
--- NOTE | 2025-04-27 21:07 | PC.NURSE ---
Report given to YOSELIN Kee.
--- NOTE | 2025-04-27 21:08 | PC.NURSE ---
Passed over bag of medication to YOSELIN Kee.
--- NOTE | 2025-04-27 23:15 | PC.NURSE ---
Pt resting in bed asleep. Pt independent to bathroom. Call chang in reach and pt understnads use.
[2025-04-28 05:56] VITALS: BP 130/84; PULSE 75; RESP 18; TEMP 36.6; O2SAT 96
[2025-04-28] MEDS: Apixaban 5 MG TABLET PO (06:34)
[2025-04-28] MEDS: Acetaminophen 325 MG TABLET 975 MG PO (06:35)
--- NOTE | 2025-04-28 07:03 | PC.NURSE ---
Okay per physician to give Eliquis dose early since he did not have a dose last night.
[2025-04-28 07:22] VITALS: BP 133/89; PULSE 90; RESP 14; TEMP 36.8; O2SAT 95
[2025-04-28 07:41] VITALS: BP 133/89; PULSE 89; RESP 19; TEMP 36.8; O2SAT 95
== END 2025-04-28 07:57 | disposition other institution (70) ==
PROVIDERS: Physician Assistant Medical; Emergency Provider Emergency Medicine
DX: F10.20 Alcohol dependence, uncomplicated (principal); Z87.891 Personal history of nicotine dependence; Y90.8 Blood alcohol level of 240 mg/100 ml or more; R05.9 Cough, unspecified; R06.02 Shortness of breath; Z86.718 Personal history of other venous thrombosis and embolism; Z79.01 Long term (current) use of anticoagulants; R91.1 Solitary pulmonary nodule; Z03.818 Encounter for observation for suspected exposure to other biological agents ruled out
CPT/HCPCS: 0241U; 36415; 71045; 71275; 80048; 80076; 80143; 80179; 80307; 81003; 83735; 85025; 85379; 99285; Q9967; S9485

== ENCOUNTER → 2025-04-27 08:52 | Outpatient (BNV) | payer MEDICAID, SELFPAY | PROVIDERS: Emergency Provider Emergency Medicine; Visit Provider Radiology Diagnostic Radiology | DX: R91.1 Solitary pulmonary nodule (principal); R05.9 Cough, unspecified | CPT/HCPCS: 71045; 71275 ==

== ENCOUNTER 2025-06-16 10:09 | Emergency (ER) | payer MEDICAID, SELFPAY ==
[2025-06-16] VITALS (8 sets, daily range): BP systolic 92–134; BP diastolic 49–81; PULSE 84–116; RESP 17–20; TEMP 36.2–37.2; O2SAT 90–98; BMI 27.4
--- NOTE | 2025-06-16 10:41 | PC.NURSE ---
patient changed over w/ this RN as well as security, pt somewhat resistant. belongings obtained/placed in noris port shelf #1. bilateral hearing aids remain bedside.
--- NOTE | 2025-06-16 10:46 | ED.ALCOHOL ---
HPI - Alcohol General Chief Complaint: ETOH/Substance Use Stated Complaint: ETOH, VOMITING Time Seen by Provider: 06/16/25 10:22 History of Present Illness HPI narrative: Patient is a 64-year-old male presents today after drinking heavily. Patient denies any suicidal homicidal ideation. Recently girlfriend . Patient decided to go back to drinking. He drinks approximately 1.5 handles of vodka over the last 2 days. Appear extremely intoxicated but he is not suicidal not homicidal. He does want to go to call center for detox called EMS patient was sent to the ED. Related Data Home Medications ?Medication ?Instructions ?Recorded ?Confirmed acetaminophen 500 mg tablet 500 mg PO Q6H PRN mild pain 08/23/24 06/16/25 (Acetaminophen Pain Relief) hydroxyzine HCl 25 mg tablet 50 mg PO BID PRN Anxiety 10/01/24 06/16/25 nicotine (polacrilex) 4 mg gum 4 mg PO NEEDED 10/01/24 06/16/25 apixaban 5 mg tablet (Eliquis) 5 mg PO BID 06/16/25 06/16/25 diphenhydramine HCl 25 mg capsule 25 mg PO BEDTIME PRN Insomnia 06/16/25 06/16/25 (Banophen) multivitamin with folic acid 400 1 tab PO DAILY 06/16/25 06/16/25 mcg tablet (Daily-Mariaelena (with folic acid)) trazodone 50 mg tablet 50 mg PO BEDTIME PRN Insomnia 06/16/25 06/16/25 Allergies Allergy/AdvReac Type Severity Reaction Status Date / Time pollen extracts (POLLEN) Allergy Unknown UNKNOWN Verified 06/16/25 10:18 Review of Systems Review of Systems: No SI no HI Yes all other systems are reviewed and are negative [facility] Past Medical History Attestation statement: The following information was validated with the patient. Medical History DVT (deep venous thrombosis) Alcohol use disorder, moderate, dependence Social History Social History Household Members: None Housing: Apartment Do you presently have visiting nurse or other home services: No Unable to assess alcohol history related to: Refusing to respond Alcohol intake: current Alcohol intake frequency: 3 or more drinks per day Alcohol type: hard liquor Patient Tobacco Use Status: Former Tobacco user Tobacco use type: Cigarette Advance Directives: No Advance Directives Information Provided: Yes Do you have a plan to hurt others: No Plan service: No Physical Exam ED Exam Exam: Appearance: Alert. Oriented X3. No acute distress. Eyes: Pupils equal, round and reactive to light. ENT: Pharynx normal. Neck: Normal inspection. Neck supple. No lymph nodes noted. No crepitus CVS: Normal heart rate and rhythm. Pulses normal. Normal S1 and S2 Respiratory: No respiratory distress. Breath sounds normal. No Wheezing. No rales Abdomen: Soft and nontender. No rigidity. No distention. good BS x4 Skin: Skin warm and dry. Normal skin color. Normal skin turgor. Extremities: No lower extremity edema. Neurovascular intact to all extremities. No Lacerations. No Rash Neuro: Oriented X 3. No motor deficit. No sensory deficit. Moving all extermities. No slurred speech Vital Signs: Vital Signs - 24 hr 06/16/25 10:15 06/16/25 10:16 06/16/25 12:45 Temperature 98.8 F 97.8 F Pulse Rate 88 88 92 Respiratory Rate 17 17 20 Blood Pressure 129/81 129/81 92/49 L Pulse Oximetry 95 98 90 L Oxygen Delivery Method Room Air Room Air Room Air Oxygen Flow Rate 06/16/25 13:00 06/16/25 13:02 06/16/25 13:15 Temperature 97.2 F Pulse Rate 87 91 Respiratory Rate 20 20 Blood Pressure 92/54 L 116/78 Pulse Oximetry 90 L 98 98 Oxygen Delivery Method Room Air Nasal Cannula Nasal Cannula Oxygen Flow Rate 2 2 06/16/25 13:30 06/16/25 20:28 06/17/25 06:16 Temperature 99 F 98.2 F Pulse Rate 84 87 66 Respiratory Rate 18 18 17 Blood Pressure 108/70 134/76 140/84 H Pulse Oximetry 96 94 97 Oxygen Delivery Method Room Air Room Air Room Air Oxygen Flow Rate BMI result Body Mass Index 27.4 Course Course Course Narrative: Time: 07:48 Date: 06/17/25 Provider: Kayla Paul DO Physician observation ended at 748am. Patient has been cleared for discharge by the CARE team. Will follow up as an outpatient. Medical Decision Making Medical Decision Making [facility] Narrative: Patient is 64 years old presents today after drinking at home. Patient got very upset while waiting to sober up. Started yelling and screaming. His alcohol came back at 300. Patient denies any trauma. We attempted verbal deescalation we offered patient his Nicorette gum. We offer patient food. Patient ate the food and became agitated again. Verbal deescalation failed. Patient was given Versed, Haldol, Benadryl. Became more sedated. Labs also showed an anion gap question secondary to AKA. Patient given a L of fluid then he decided to ripped out the IV. A repeat electrolyte was done it showed mild improvement is AKA. Will encourage patient to eat drink. Hydrate orally. Patient stated that he had possible suicidal ideation to 1 of the nurses. Start getting agitated. Will require crisis evaluation. In stable condition Differential Diagnosis Differential Diagnoses: The differential diagnosis associated with the presentation includes Alcohol intoxication, depression, suicidal ideation Admission/Observation Consideration of admission/observation: Escalation of care including admission/observation considered Lab Data [facility] Lab Attestation statement: I reviewed the patient's lab results. 06/16/25 11:17 06/16/25 14:40 Labs: Lab Results 06/16/25 06/16/25 06/16/25 Range/Units 11:17 14:40 16:49 WBC 4.8 (4.8-10.8) X10*3/uL RBC 4.55 L (4.60-5.80) X10*6/uL Hgb 14.6 (14.0-18.0) g/dl Hct 42.0 (42.0-52.0) % MCV 92.3 (80.0-98.0) fL MCH 32.1 (27.0-33.0) pg MCHC 34.8 (31.0-36.0) g/dl RDW 13.7 (11.0-16.0) % Plt Count 230 (160-400) X10*3/uL MPV 7.9 L (9.4-12.4) fL Immature Gran % (Auto) 2.3 H (0.0-0.4) % Neut % (Auto) 75.6 H (45-73) % Lymph % (Auto) 15.7 L (20-40) % [place] % (Auto) 5.4 (2-11) % Eos % (Auto) 0.0 (0-4) % Baso % (Auto) 1.0 (0-2) % Lymph # (Auto) 0.8 L (1.2-4.9) X10*3/uL [place] # (Auto) 0.3 (0.1-1.2) X10*3/uL Eos # (Auto) 0.0 (0.0-0.4) X10*3/uL Baso # (Auto) 0.1 (0.0-0.2) X10*3/uL Abs Immat Gran (auto) 0.11 H (0.00-0.03) X10*3/uL Absolute Neuts (auto) 3.7 (2.0-8.3) x10*3/uL Absolute Nucleated RBC 0.000 (0.0-0.012) X10*3/uL Nucleated RBC % (auto) 0.0 (0.0-0.2) /100WBC Sodium 143 144 (135-145) mmol/L Potassium 3.9 4.1 (3.3-5.1) mmol/L Chloride 105 108 (96-108) mmol/L Carbon Dioxide 19 L 18 L (22-29) mmol/L Anion Gap 23 H 22 H (12-20) BUN 25 H 24 H (9-16) mg/dL Creatinine 1.02 0.94 (0.5-1.4) mg/dL Estim Creat Clear Calc 71.7 77.8 Estimated GFR > 60 > 60 Random Glucose 70 61 (60-115) mg/dL Calcium 8.5 7.8 L D (8.4-10.2) mg/dL Magnesium 2.0 (1.6-2.6) mg/dL Urine Color Yellow Urine Appearance Clear Urine pH 5.5 (5.0-9.0) Ur Specific [place] 1.025 (1.005-1.025) Urine Protein 30 (1+) H (Neg-Trace) mg/dL Urine Glucose (UA) Negative (Negative) mg/dL Urine Ketones 80 (Negative) mg/dL Urine Blood Negative (Negative) Urine Nitrite Negative (Negative) Ur Leukocyte Esterase Negative (Negative) Urine RBC 0-2 (0-2) /HPF Urine WBC 0-5 (0-5) /HPF Ur Squamous Epith Cells 0-2 (0-2) /HPF Urine Bacteria None Seen (None Seen) Hyaline Casts 0-2 (0-2) /LPF Urine Opiates Screen (Not Detect) Ur Buprenorphine Scrn (Not Detect) ng/mL Ur Oxycodone Screen (Not Detect) ng/mL Urine Methadone Screen (Not Detect) ng/mL Urine Fentanyl Screen (Not Detect) Ur Barbiturates Screen (Not Detect) Ur Phencyclidine Scrn (Not Detect) Ur Amphetamines Screen (Not Detect) U Benzodiazepines Scrn (Not Detect) Urine Cocaine Screen (Not Detect) U Marijuana (THC) Screen (Not Detect) Ethyl Alcohol 307 H* mg/dL 06/16/25 Range/Units 16:50 WBC (4.8-10.8) X10*3/uL RBC (4.60-5.80) X10*6/uL Hgb (14.0-18.0) g/dl Hct (42.0-52.0) % MCV (80.0-98.0) fL MCH (27.0-33.0) pg MCHC (31.0-36.0) g/dl RDW (11.0-16.0) % Plt Count (160-400) X10*3/uL MPV (9.4-12.4) fL Immature Gran % (Auto) (0.0-0.4) % Neut % (Auto) (45-73) % Lymph % (Auto) (20-40) % [place] % (Auto) (2-11) % Eos % (Auto) (0-4) % Baso % (Auto) (0-2) % Lymph # (Auto) (1.2-4.9) X10*3/uL [place] # (Auto) (0.1-1.2) X10*3/uL Eos # (Auto) (0.0-0.4) X10*3/uL Baso # (Auto) (0.0-0.2) X10*3/uL Abs Immat Gran (auto) (0.00-0.03) X10*3/uL Absolute Neuts (auto) (2.0-8.3) x10*3/uL Absolute Nucleated RBC (0.0-0.012) X10*3/uL Nucleated RBC % (auto) (0.0-0.2) /100WBC Sodium (135-145) mmol/L Potassium (3.3-5.1) mmol/L Chloride (96-108) mmol/L Carbon Dioxide (22-29) mmol/L Anion Gap (12-20) BUN (9-16) mg/dL Creatinine (0.5-1.4) mg/dL Estim Creat Clear Calc Estimated GFR Random Glucose (60-115) mg/dL Calcium (8.4-10.2) mg/dL Magnesium (1.6-2.6) mg/dL Urine Color Urine Appearance Urine pH (5.0-9.0) Ur Specific [place] (1.005-1.025) Urine Protein (Neg-Trace) mg/dL Urine Glucose (UA) (Negative) mg/dL Urine Ketones (Negative) mg/dL Urine Blood (Negative) Urine Nitrite (Negative) Ur Leukocyte Esterase (Negative) Urine RBC (0-2) /HPF Urine WBC (0-5) /HPF Ur Squamous Epith Cells (0-2) /HPF Urine Bacteria (None Seen) Hyaline Casts (0-2) /LPF Urine Opiates Screen Not Detected (Not Detect) Ur Buprenorphine Scrn Not Detected (Not Detect) ng/mL Ur Oxycodone Screen Not Detected (Not Detect) ng/mL Urine Methadone Screen Not Detected (Not Detect) ng/mL Urine Fentanyl Screen Not Detected (Not Detect) Ur Barbiturates Screen Not Detected (Not Detect) Ur Phencyclidine Scrn Not Detected (Not Detect) Ur Amphetamines Screen Not Detected (Not Detect) U Benzodiazepines Scrn POSITIVE H (Not Detect) Urine Cocaine Screen Not Detected (Not Detect) U Marijuana (THC) Screen Not Detected (Not Detect) Ethyl Alcohol mg/dL Medications Administered Generic Name Dose Route Start Last Admin Trade Name Freq PRN Reason Stop Dose Admin Acetaminophen 650 mg 06/16/25 20:40 06/16/25 20:47 Acetaminophen 325 Mg Tablet PO 650 mg Q6H PRN Administration mild pain Apixaban 5 mg 06/16/25 21:00 06/16/25 20:47 Apixaban 5 Mg Tablet PO 5 mg BID MIGUEL Administration Multivitamins/Vitamin C 1 tab 06/16/25 20:45 06/16/25 20:47 Multivitamin Tablet PO 1 tab DAILY MIGUEL Administration Nicotine Polacrilex 2 mg 06/16/25 11:47 06/17/25 07:08 Nicotine Polacrilex 2 Mg Gum BUCCAL 2 mg Q1H PRN Administration Nicotine Cravings Discontinued Medications Generic Name Dose Route Start Last Admin Trade Name Freq PRN Reason Stop Dose Admin Diphenhydramine HCl 50 mg 06/16/25 12:22 06/16/25 12:30 Diphenhydramine Hcl 50 Mg/Ml Vial IM 06/16/25 12:23 50 mg ONCE ONE Administration Haloperidol Lactate 5 mg 06/16/25 12:22 06/16/25 12:30 Haloperidol Lactate 5 Mg/Ml Vial IM 06/16/25 12:23 5 mg STAT STA Administration Sodium Chloride 1,000 mls @ 999 mls/hr 06/16/25 13:00 06/16/25 14:56 Ns IV 06/16/25 14:00 Infused .Q1H1M MIGUEL Infusion Sodium Chloride 1,000 mls @ 999 mls/hr 06/16/25 13:00 06/16/25 14:56 Ns IV 06/16/25 14:00 Infused .Q1H1M MIGUEL Infusion Midazolam HCl 2 mg 06/16/25 12:22 06/16/25 12:30 Midazolam Hcl 2 Mg/2 Ml Vial IM 06/16/25 12:23 2 mg ONCE ONE Administration Critical Care Time Critical Care Time Critical Care Time: Yes Total Critical Care Time: 40 Attestation: I have personally provided 40 minutes of critical care time exclusive of time spent on separately billable procedures. ?Time includes review of lab data, radiology results, discussion with consultants, and monitoring for potential decompensation. ?Interventions were performed as documented above Discharge Plan Discharge Clinical Impression: Drinking binge Patient Disposition: Still a Patient Instructions: Alcohol Use Disorder (ED) Additional Instructions: Alcohol use disorder You were seen in the Emergency Department today for treatment of alcohol use disorder.? You may have been given medications to help with your withdrawal symptoms.? Please do not drink alcohol with them. This is very dangerous and can cause respiratory depression or other adverse reactions depending on the medication. If you would like to cut down or stop your alcohol use please consider calling our outpatient Addiction Treatment office:? [facility] (-[id number]) [address] [place] [address] ? You have also been given a list of treatment providers in the area that can assist as well.? If you experience seizures, vomiting blood, black stools, falls, severe headache, chest pain, fevers, trouble breathing, hallucinations or any other concerns you need to call 911 or seek immediate care. Please stay hydrated. Prescriptions: No Action trazodone 50 mg Tablet 50 mg PO BEDTIME PRN (Reason: Insomnia) Rx Instructions: take 1-2 capsules at bedtime as needed for insomnia diphenhydramine HCl [Banophen] 25 mg Capsule 25 mg PO BEDTIME PRN (Reason: Insomnia) Rx Instructions: Take 1-2 capsules at bedtime as needed for insomnia multivitamin with folic acid [Daily-Mariaelena (with folic acid)] 400 mcg tablet 1 tab PO DAILY Eliquis 5 mg tablet 5 mg PO BID acetaminophen [Acetaminophen Pain Relief] 500 mg tablet 500 mg PO Q6H PRN (Reason: mild pain) nicotine (polacrilex) 4 mg gum 4 mg PO NEEDED hydroxyzine HCl 25 mg tablet 50 mg PO BID PRN (Reason: Anxiety) Print Language: Congolese
--- OUTSIDE RECORDS SUMMARY | 2025-06-16 11:16 | XMS_ITS | Encounter Summary ---
Author Organization [employer] Address [address] [place] [id number] Care Team Providers Care Sales Audit Clerk Name Role Phone Bety Rich COLIN Unavailable Unavailable Jeanne Dickinson Unavailable Silviano Freire Unasszaida Primary Care Provider Energy, [place] Unavailable [phone] Winston Philip MD Primary Care Provider Gloria Negrete Unavailable Encounter Details Date Type Department Care Team (Late st Contact Info) Description 08/31/[address] [phone] Silviano Freire Unasszaida Social History Tobacco Use [...] Care Team (Late st Contact Info) Description 07/07/2025 3:00 PM EDT Office Visit [address] [phone] Winston Philip MD [address] [place] [id number] documented as of this encounter Visit Diagnoses Not on filedocumented in this encounter Care Teams Sales Audit Clerk Relationship Specialty Start Date End Date Silviano Freire Unassigned PCP - General Family Medicine 08/01/23 10/16/23 Winston Philip MD [address] [place] [address] PCP - General Internal Medicine 10/17/23 Bety Rich FNP Family Medicine 09/09/22 Jeanne Dickinson [address] [place] [address] 07/31/23 Nicolette Donnelly [address] [place] [address] 08/07/23 07/16/24 Gloria Negrete [address] [place] [id number] Community Health Worker 02/16/2405/28 documented as of this encounter
[2025-06-16 11:22] LABS: MANUAL DIFF FLAG NO
[2025-06-16 11:31] LABS: Hematocrit 42.0 % (42.0-52.0); Hemoglobin 14.6 g/dl (14.0-18.0); Imm Gran Abs Auto 0.11 X10*3/uL (0.00-0.03); Imm Gran Pct Auto 2.3 % (0.0-0.4); Lymphocytes Absolute Auto 0.8 X10*3/uL (1.2-4.9); Mean Corpuscular HGB Conc 34.8 g/dl (31.0-36.0); Mean Corpuscular Hemoglobin 32.1 pg (27.0-33.0); Mean Corpuscular Volume 92.3 fL (80.0-98.0); NRBC Abs Auto 0.000 X10*3/uL (0.0-0.012); NRBC Pct Auto 0.0 /100WBC (0.0-0.2); Platelet Count 230 X10*3/uL (160-400); Red Blood Count 4.55 X10*6/uL (4.60-5.80); White Blood Count 4.8 X10*3/uL (4.8-10.8)
[2025-06-16 11:38] LABS: Anion Gap 23 (12-20); Blood Urea Nitrogen 25 mg/dL (9-16); Calcium 8.5 mg/dL (8.4-10.2); Carbon Dioxide 19 mmol/L (22-29); Chloride 105 mmol/L (96-108); Creatinine Clr Calc Pharmacy 71.7; Estimated Glomerular Filt Rate > 60; Magnesium 2.0 mg/dL (1.6-2.6); Potassium 3.9 mmol/L (3.3-5.1); Sodium 143 mmol/L (135-145)
--- NOTE | 2025-06-16 13:46 | PC.NURSE ---
this nurse took over for Maricruz- pt moved into my group into 16[facility] for the purpose of a sitter. Pt was combative, agitated and uncoopoerative, security was at bedside and with the assist of charge nurse Ying, the patient was medicated per orders placed by Dr. Olmos, pts O2 sat was 88-90%, per request of Dr. Olmos, pt was put on 2L NC which brought him up WNL. Pt repositioned in bed and boosted, pt removed his O2 and was remaining at 96% so it was removed. Call chang within reach, 1:1 sitter at bedside, plan of care ongoing
--- NOTE | 2025-06-16 14:23 | PC.NURSE ---
patient pulled out IV site, provider was notified, pt will have chemistries redrawn- pt does not need new iv as of yet per provider.
[2025-06-16 15:04] LABS: Anion Gap 22 (12-20); Blood Urea Nitrogen 24 mg/dL (9-16); Calcium 7.8 mg/dL (8.4-10.2); Carbon Dioxide 18 mmol/L (22-29); Chloride 108 mmol/L (96-108); Creatinine Clr Calc Pharmacy 77.8; Estimated Glomerular Filt Rate > 60; Potassium 4.1 mmol/L (3.3-5.1); Sodium 144 mmol/L (135-145)
--- NOTE | 2025-06-16 16:29 | PC.NURSE ---
Pt transferred from ED 17 to [facility] with sharepoint admin and Security. Pt arrives changed into hospital clothes, a/ox3, ambulating with steady gait. Pt calm/cooperative upon arrival to [facility]. Resting in bed quietly, offered food/drinks. Pt sleeping in bed at this time, respirations even and unlabored, all needs met.
[2025-06-16 16:59] LABS: Appearance Urine Clear; Glucose Urine UA Negative (Negative); PH 5.5 (5.0-9.0); Specific Gravity - Urine 1.025 (1.005-1.025); UMIC TRIGGER UACC YES
[2025-06-16 17:09] LABS: Cannabinoid Screen Urine Not Detected (Not Detect)
--- NOTE | 2025-06-16 20:37 | PHA.MEDREC ---
Pharmacy Consult ? Medication Reconciliation Pharmacy has completed the medication reconciliation. Reviewed med rec done by nursing
--- NOTE | 2025-06-16 21:58 | PC.NURSE ---
RE: belongings Belongings moved to locker 6 from the [facility]
--- NOTE | 2025-06-16 21:58 | PC.NURSE ---
RE: med rec this RN completed med rec with medical history as well as RX bottles in patient belongings along with pts verbal confirmation
--- NOTE | 2025-06-16 22:03 | PC.NURSE ---
Pt requesting his hearing aids be charged. This RN and JUAN Nava attempted to search pts belongings for hand paint mixer, no hand paint mixer was found, it was also not documented on belongings list upon arrival. Pt made aware, offering no complaints at this time
[2025-06-17 06:16] VITALS: BP 140/84; PULSE 66; RESP 17; TEMP 36.8; O2SAT 97
[2025-06-17 08:05] VITALS: BP 145/91; PULSE 92; RESP 18; TEMP 36.5; O2SAT 97
== END 2025-06-17 08:22 | disposition still patient (30) ==
PROVIDERS: Emergency Provider Emergency Medicine Emergency Medical Services
DX: F10.929 Alcohol use, unspecified with intoxication, unspecified (principal); Y90.8 Blood alcohol level of 240 mg/100 ml or more
CPT/HCPCS: 36415; 80048; 80307; 81001; 81003; 83735; 85025; 96360; 96361; 96372; 99285; J1200; J1630; J2250; S9485

== ENCOUNTER 2025-07-13 15:17 | Emergency (ER) | payer MEDICAID, SELFPAY ==
--- NOTE | 2025-07-13 15:20 | ED_ITS ---
HPI - General Adult General Chief complaint: ETOH/Substance Use Stated complaint: ETOH Time Seen by Provider: 07/13/25 15:22 Source: patient and EMS Mode of arrival: EMS Limitations: altered mental status (very intoxicated ) History of Present Illness ED Provider: CLEMENTE Calvert HPI narrative: 64-year-old male presents with EMS for acute alcohol intoxication reports binge drinking ( vodka) and would like to go to Detox facility. Denies suicidal and homicidal ideation. No medical complaints. No reports of trauma or falls. Denies pain. States hes tired. Patient is coming from home with other people in it and nobody there reported that patient fell. Related Data Home Medications ?Medication ?Instructions ?Recorded ?Confirmed acetaminophen 500 mg tablet 500 mg PO Q6H PRN mild jennifer n 08/23/24 06/16/25 (Acetaminophen Pain Relief) hydroxyzine HCl 25 mg tablet 50 mg PO BID PRN Anxiety 10/01/24 06/16/25 nicotine (polacrilex) 4 mg gum 4 mg PO NEEDED 10/0106/16/25 apixaban 5 mg tablet (Eliquis) 5 mg PO BID 06/16/25 diphenhydramine HCl 25 mg capsule 25 mg PO BEDTIME PRN Insomnia 06/16/25 06/16/25 (Banophen) multivitamin with folic acid 400 1 tab PO DAILY 06/16/25 mcg tablet (Daily-Mariaelena (with folic acid)) trazodone 50 mg tablet 50 mg PO BEDTIME PRN Insomni a 06/16/25 06/16/25 Allergies Allergy/AdvReac Type Severity Reaction Status Date / Time pollen extracts (POLLEN) Allergy Unknown UNKNOWN Verified 07/13/25 15:28 Review of Systems 2 Review of Systems: Yes Unobtainable due to mental status PMFSH Past Medical History Attestation statement: The following information was validated with the patient. Source: old records reviewed and nursing notes reviewed Medical History DVT (deep venous thrombosis) Alcohol use disorder, moderate, dependence Social History Social History Household Members: None Housing: Apartment Do you presently have visiting nurse or other home services: No Unable to assess alcohol history related to: Refusing to respond Alcohol intake: current Alcohol intake frequency: 3 or more drinks per day Alcohol type: hard liquor Patient Tobacco Use Status: Former Tobacco user Tobacco use type: Cigarette service: No Physical Exam ED Exam Exam: Appearance: Alert.? Oriented X3.? No acute distress.? Patient smells like alcohol. Head: Normocephalic, atraumatic, no step-offs or deformities Eyes: Pupils equal, round and reactive to light.? Neck: Normal inspection.? Neck supple.? CVS: Normal heart rate and rhythm.? Pulses normal.? Respiratory: No respiratory distress.? Breath sounds normal.? Abdomen: Soft and nontender.? Skin: Skin warm and dry.? Normal skin color.? Normal skin turgor.? Extremities: No lower extremity edema.? No calf ttp. 5/5 strength to bilateral upper and lower extremities Neuro: Oriented X 3.? No motor deficit.? No sensory deficit. CN 2-12 intact following commands. Vital Signs: Vital Signs - 24 hr 07/13/25 15:26 Temperature 97.5 F Pulse Rate 93 Respiratory Rate 18 Blood Pressure 117/80 Pulse Oximetry 93 Oxygen Delivery Method Room Air BMI result Body Mass Index 32.3 vss Course Reevaluation(s) Reevaluation #1: CBC with no acute findings. Chemistry with elevated anion gap secondary to alcohol. Patient's urine toxicology with ethanol level of 360. Patient ambulating down the castañeda to use the restroom. Time: 16:35 Reevaluation #2: Patient now states he does not want detox. He just needs to sleep he states. Plan at this time is for patient to metabolize to freedom Educated patient on diagnosis and treatment plan, answered all question, patient verbalizes understanding. At this time patient will be discharged home, advised to return with new or worsening symptoms. Educated on worrisome signs and symptoms and when to return. At this time I feel comfortable discharge home. Time: 16:36 Medical Decision Making Medical Decision Making [facility] Narrative: [id number] 64-year-old male presents status post binge drinking poor historian. Not SI or HI. Looking for detox Physical exam benign however patient does appear intoxicated smells like alcohol. Alert and oriented x4. Following commands. History and physical exam concerning for acute alcohol intoxication possible polysubstance abuse. Will rule out metabolic derangements. No signs of trauma to head, neck, chest, abdomen or pelvis. Plan at this time medical clearance evaluation by behavioral health team. Differential Diagnosis Differential Diagnoses: The differential diagnosis associated with the presentation includes (History and physical exam concerning for acute alcohol intoxication possible polysubstance abuse. Will rule out metabolic derangements. No signs of trauma to head, neck, chest, abdomen or pelvis.) Admission/Observation Consideration of admission/observation: Escalation of care including admission/observation considered Lab Data MDM Lab Attestation statement: I reviewed the patient's lab results. 07/13/25 15:57 07/13/25 15:57 Labs: Lab Results 07/13/25 Range/Units 15:57 WBC 7.2 (4.8-10.8) X10*3/uL RBC 4.34 L (4.60-5.80) X10*6/uL Hgb 14.0 (14.0-18.0) g/dl Hct 39.6 L (42.0-52.0) % MCV 91.2 (80.0-98.0) fL MCH 32.3 (27.0-33.0) pg MCHC 35.4 (31.0-36.0) g/dl RDW 13.2 (11.0-16.0) % Plt Count 195 (160-400) X10*3/uL MPV 7.9 L (9.4-12.4) fL Immature Gran % (Auto) 1.1 H (0.0-0.4) % Neut % (Auto) 72.0 (45-73) % Lymph % (Auto) 15.6 L (20-40) % Hinds % (Auto) 10.5 (2-11) % Eos % (Auto) 0.4 (0-4) % Baso % (Auto) 0.4 (0-2) % Lymph # (Auto) 1.1 L (1.2-4.9) X10*3/uL Hinds # (Auto) 0.8 (0.1-1.2) X10*3/uL Eos # (Auto) 0.0 (0.0-0.4) X10*3/uL Baso # (Auto) 0.0 (0.0-0.2) X10*3/uL Abs Immat Gran (auto) 0.08 H (0.00-0.03) X10*3/uL Absolute Neuts (auto) 5.2 (2.0-8.3) x10*3/uL Absolute Nucleated RBC 0.000 (0.0-0.012) X10*3/uL Nucleated RBC % (auto) 0.0 (0.0-0.2) /100WBC Sodium 145 (135-145) mmol/L Potassium 3.6 (3.3-5.1) mmol/L Chloride 104 (96-108) mmol/L Carbon Dioxide 20 L (22-29) mmol/L Anion Gap 25 H (12-20) BUN 18 H (9-16) mg/dL Creatinine 0.91 (0.5-1.4) mg/dL Estim Creat Clear Calc 99.4 Estimated GFR > 60 Random Glucose 80 (60-115) mg/dL Calcium 8.6 D (8.4-10.2) mg/dL Magnesium 1.8 (1.6-2.6) mg/dL Total Bilirubin 0.4 (0.0-1.0) mg/dL AST 27 (5-37) U/L ALT 21 (0-40) U/L Alkaline Phosphatase 72 (39-117) U/L Total Protein 6.8 (6.5-8.0) g/dL Albumin 4.6 (3.5-5.0) g/dL Ethyl Alcohol 360 H* mg/dL Critical Care Time Critical Care Time Critical Care Time: No Discharge Plan Discharge Clinical Impression: Alcoholic intoxication Patient Disposition: Home, Self-Care Instructions: Abuse of Alcohol (ED) Additional Instructions: Take your medications as prescribed. If you were prescribed antibiotics today, it is important that you take your medication to their entirety, do not skip any doses, do not finish them early. Follow-up with your primary care provider this week. Return to the emergency department with new or worsening symptoms. Such as fevers, chills, chest pain, shortness of breath, nausea, vomiting, dizziness, headache, vision changes, lethargy In case of emergency call 911 Prescriptions: No Action trazodone 50 mg Tablet 50 mg PO BEDTIME PRN (Reason: Insomnia) Rx Instructions: take 1-2 capsules at bedtime as needed for insomnia diphenhydramine HCl [Banophen] 25 mg Capsule 25 mg PO BEDTIME PRN (Reason: Insomnia) Rx Instructions: Take 1-2 capsules at bedtime as needed for insomnia multivitamin with folic acid [Daily-Mariaelena (with folic acid)] 400 mcg tablet 1 tab PO DAILY Eliquis 5 mg tablet 5 mg PO BID acetaminophen [Acetaminophen Pain Relief] 500 mg tablet 500 mg PO Q6H PRN (Reason: mild pain) nicotine (polacrilex) 4 mg gum 4 mg PO NEEDED hydroxyzine HCl 25 mg tablet 50 mg PO BID PRN (Reason: Anxiety) Print Language: Tunisian
[2025-07-13 15:22] VITALS: BP 148/88; PULSE 95; O2SAT 93
[2025-07-13 15:26] VITALS: BP 117/80; PULSE 93; RESP 18; TEMP 36.4; O2SAT 93; BMI 32.3
[2025-07-13 16:00] LABS: MANUAL DIFF FLAG NO
[2025-07-13 16:01] LABS: Hematocrit 39.6 % (42.0-52.0); Hemoglobin 14.0 g/dl (14.0-18.0); Imm Gran Abs Auto 0.08 X10*3/uL (0.00-0.03); Imm Gran Pct Auto 1.1 % (0.0-0.4); Lymphocytes Absolute Auto 1.1 X10*3/uL (1.2-4.9); Mean Corpuscular HGB Conc 35.4 g/dl (31.0-36.0); Mean Corpuscular Hemoglobin 32.3 pg (27.0-33.0); Mean Corpuscular Volume 91.2 fL (80.0-98.0); NRBC Abs Auto 0.000 X10*3/uL (0.0-0.012); NRBC Pct Auto 0.0 /100WBC (0.0-0.2); Platelet Count 195 X10*3/uL (160-400); Red Blood Count 4.34 X10*6/uL (4.60-5.80); White Blood Count 7.2 X10*3/uL (4.8-10.8)
[2025-07-13 16:19] LABS: Alanine Aminotransferase 21 U/L (0-40); Albumin Level 4.6 g/dL (3.5-5.0); Alkaline Phosphatase 72 U/L (39-117); Anion Gap 25 (12-20); Aspartate Amino Transferase 27 U/L (5-37); Blood Urea Nitrogen 18 mg/dL (9-16); Calcium 8.6 mg/dL (8.4-10.2); Carbon Dioxide 20 mmol/L (22-29); Chloride 104 mmol/L (96-108); Creatinine Clr Calc Pharmacy 99.4; Estimated Glomerular Filt Rate > 60; Magnesium 1.8 mg/dL (1.6-2.6); Potassium 3.6 mmol/L (3.3-5.1); Sodium 145 mmol/L (135-145); Total Protein 6.8 g/dL (6.5-8.0)
--- NOTE | 2025-07-13 16:43 | PC.NURSE ---
patient yelling I gotta pee, fuck you out of bed immediately after yelling this. ambulates with one assist to the bathroom w/ unsteady gait. back into bed at this time. plan for mtf
--- NOTE | 2025-07-13 18:03 | PC.NURSE ---
backpack placed in [facility] shelf 3
--- OUTSIDE RECORDS SUMMARY | 2025-07-13 18:21 | XMS_ITS | Encounter Summary ---
Author Organization [employer] Address [address] [place] [address] Care Team Providers Care Teaching Manager Name Role Phone Bety Rich COLIN Unavailable Unavailable Jeanne Dickinson Unavailable Silviano Freire Unassigned Primary Care Provider [place], [place] Unavailable [phone] Winston Philip MD Primary Care Provider [phone] Gloria Negrete Unavailable Everton Wade Unavailable Encounter Details Date Type Department Care Team (Late st Contact Info) Description 08/31/[address] [phone] PcpSilviano Unassigned Social History Tobacco Use Types Packs/Day Years [...] Care Team (Late st Contact Info) Description 07/16/2025 12:40 PM EDT Office Visit [address] [phone] Winston Philip MD [address] [place] [address] documented as of this encounter Visit Diagnoses Not on filedocumented in this encounter Care Teams Teaching Manager Relationship Specialty Start Date End Date PcpSilviano Unassigned PCP - General Family Medicine 08/01/23 10/16/23 Winston Philip MD [address] [place] [address] PCP - General Internal Medicine 10/17/23 Bety Rich FNP Family Medicine 09/09/22 Jeanne Dickinson [address] [place] [address] 07/31/23 Nicolette Donnelly [address] [place] [address] 08/07/23 07/16/24 Gloria Negrete [address] [place] [address] Community Health Worker 02/16/2405/28 Everton Wade 06/19/25 documented as of this encounter
--- OUTSIDE RECORDS SUMMARY | 2025-07-13 18:21 | XMS_ITS | Encounter Summary ---
Author Organization [employer] Address [address] [place] [address] 7 [place] [address] Care Team Providers Care Multi Sensor Operator Name Role Phone Bety Rich COLIN Unavailable Unavailable Jeanne Dickinson Unavailable Winston Philip MD Primary Care Provider + [phone] Everton Wade Unavailable Encounter Details Date Type Department Care Team (Late st Contact Info) Description 02/06/[address] [phone] Winston Philip MD [address] [place] [address] [phone] Social History Tobacco Use Types Packs/Day Years [...] a PT-1 for a medical appointment. Patient's [facility] [address] ID: [id number] Complete Pickup Address (home): [address] [place] [address] Alternate pickup address (optional): Patient Emergency Contact Name and Number (optional): Drop off address (list all locations, including name of facility and care being received): [address] How many visits per month needed: [...] Description 07/16/2025 12:40 PM EDT Office Visit [facility] [address] [place] [phone] Winston Philip MD [address] [place] [address] documented as of this encounter Visit Diagnoses Not on filedocumented in this encounter Care Teams Multi Sensor Operator Relationship Specialty Start Date End Date Winston Philip MD [address] [place] [address] PCP - General Internal Medicine 10/17/23 Bety Rich FNP Family Medicine 09/09/22 Jeanne Dickinson [address] [place] [address] 07/31/23 Everton Wade 06/19/25 documented as of this encounter
--- OUTSIDE RECORDS SUMMARY | 2025-07-13 18:21 | XMS_ITS | Clinical Summary ---
Author Organization [employer] Address [address] [place] [address] 7t [place] [address] Care Team Providers Care Oil Dipper Name Role Phone Bety Rich COLIN Unavailable Unavailable Jeanne Dickinson Unavailable Winston Philip MD Primary Care Provider + [phone] Everton Wade Unavailable Allergies Active Allergy Reactions Criticality Noted Date Comments Gramineae Pollens 05/05/2020 Naltrexone Hallucinations 10/11/2021 Medications albuterol 108 (90 Base) MCG/ACT inhaler Inhale 2 puffs every 4 (four) hours if needed for wheezing or shortness of breath. Per [facility] discharge Active acamprosate (Campral) 333 MG EC tablet Take 666 mg by mouth 3 times daily. Active GaviLAX 17 GM/SCOOP powder MIX 17 GRAMS WITH WATER AND DRINK ONCE DAILY Active Senna-Time 8.6 MG tablet TAKE 2 TABLETS BY MOUTH EVERY DAY AT BEDTIME NEEDED FOR CONSTIPATION Active traZODone (Desyrel) 50 MG tablet Take 50 mg by mouth at bedtime. Active atorvastatin (Lipitor) 40 MG tablet Take 1 tablet (40 mg) by mouth at bedtime. 30 tablet Active Additional Information Patient not taking.Reported on 02/14/2024 terbinafine (LamISIL) 250 MG tabletIndications :Onychomycosis TAKE 1 TABLET BY MOUTH IN THE MORNING. RETURN TO CLINIC AFTER 4-6 WEEKS FOR LAB WORK AND REFILL 30 tablet 1 08/01/2 023 Active Additional Information Patient not taking.Reported [...] 14 days. 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 180 tablet 3 025 2025 Active nicotine polacrilex (Nicorette) 4 MG gumIndications:To bacco dependence syndrome Chew 1 each (4 mg) if needed for smoking cessation (max 24 pieces/ day). 100 each 3 025 Active Acetaminophen Extra Strength 500 MG tablet TAKE 1 TABLET BY MOUTH EVERY 6 HOURS NEEDED FOR MILD PAIN. 360 tablet 3 025 Active Multiple Vitamin (Daily-Mariaelena Multivitamin) tabletIndications :Thrombocytopenia (CMS/HCC) TAKE 1 TABLET BY MOUTH EVERY DAY 90 tablet 3 025 Active nicotine polacrilex (Nicorette) 4 MG gumIndications:To bacco dependence syndrome CHEW 1 EACH (4 MG) BY MOUTH IF NEEDED FOR SMOKING CESSATION (MAX 24 PIECES/ DAY). 90 each 3 025 Active nicotine polacrilex (Nicorette) [...] Encounters Date Type Department Care Team Description 06/30/2025 Patient [facility] () Department [address] [place] [phone] Everton Wade 06/26/2025 Patient [facility] () Department [address] [place] [phone] Everton Wade 06/23/[address] [phone] Winston Philip MD Tobacco dependence syndrome 06/22/[address] [phone] Winston Philip MD Tobacco dependence syndrome 06/19/2025 Patient [facility] () Department [address] [place] [phone] Everton Wade c3 care management 06/11/2025 Patient Outreach [address] [phone] [place], 06/03/[address] [phone] Winston Philip MD Thrombocytopenia ([facility]) 05/28/[address] [phone] Winston Philip MD from Last 3 Months Immunizations Immunization Administration Dates Next Due Influenza injectable quadriv [...] 84 02/14/2024 8:56 AM EDT Temperature 36.3 C (97.4 F) 02/14/2024 8:56 AM EDT Respiratory Rate - - Oxygen Saturation 95% [...] Description 07/16/2025 12:40 PM EDT Office Visit [facility] [address] [place] [phone] Winston Philip MD [address] [place] [address] [phone] Health Maintenance Due Date Last Done Comments CT Colonography 1961 FIT DNA/Cologuard 1961 FIT 1961 FOBT 1961 Sigmoidoscopy 1961 Disability Screening 1961 Alcohol/Substance Use Screening 1973 Zoster Vaccines (1 of 2) 2011 Pneumococcal Vaccine: 50+ Years (2 of 2 - PCV) 11/29/2017 11/29/2016 Tobacco Screening 03/17/2024 03/17/2023 COVID-19 Vaccine ( season) 2024 01/08/2024, 02/09/2023, 11/11/2021, Additional history exists Depression Screening 12/06/2024 12/06/2023, 12/06/19 24 SDOH Screening 12/06/2024 12/06/2023 Influenza Vaccine (#1) 2025 , 08/24/2022, 07/13/2020, Additional history exists Lung Cancer Screening 03/19/2026 03/19/2025 Lipid Panel 09/30/2027 09/30/2022, 02/12, 05/06/2020 Colonoscopy 11/15/2027 11/15/2024 Colorectal Cancer Screening 11/15/2027 DTaP/Tdap/Td Vaccines (2 - Td or Tdap) [...] patient's age to complete this topic Meningococcal B Vaccine Aged Out No l onger eligible based on patient's age to complete [...] Procedure Name Priority Date/Time Associated Diagnosis Comments HM LUNG CANCER SCREENING Routine 03/19/2025 11:46 AM EDT HM COLONOSCOPY Routine 11/15/2024 2:58 PM EST HEPATITIS PANEL, ACUTE W/REFLEX TO CONFIRMATION Routine 02/14/2024 9:43 AM EDT Abnormal LFTs HIV 1/2 ANTIGEN/ANTIBODY, FOURTH GENERATION W/RFL Routine 01/08/2024 11:56 AM EST Screening examination for infectious disease LIPID PANEL WITH REFLEX TO DIRECT LDL Routine 09/30/2022 1:49 PM EST from Last 3 Months or Most Recently Relevant to Health Maintenance Results * Hm Lung Cancer Screning (03/19/2025 11:46 AM EDT) Anatomical Region Laterality Modality Other us Not In System Provider HEALTH MAINTENANCE Edited Result - Final * Hm Colonoscopy (11/15/2024 2:58 PM EST) us Not In System Provider [facility]ALTH [facility] Edited Result - Final * Hepatitis Panel, Acute??with Reflex to??Confirmation (02/14/2024 9:43 AM EDT) Hepatitis A IgM NON-REACT GABRIELLA NON-REACT GABRIELLA [employer] Comment: For additional information, please refer to http://Ondeego.Local.com/faq/SZP517 (This link is being provided for informational/ educational purposes only.) Hepatitis B Surface Ag NON-REACT GABRIELLA NON-REACT [employer] [place] [employer] Comment: For additional information, please refer to http://Veritract/faq/BUI998 (This link is being provided for informational/ educational purposes only.) Hepatitis B Core Antibody IgM NON-REACT GABRIELLA NON-REACT GABRIELLA [employer] [place] [employer] Comment: For additional information, please refer to http://Veritract/faq/DCN967 (This link is being provided for informational/ educational purposes only.) Hepatitis C Antibody NON-REACT GABRIELLA NON-REACT GABRIELLA [employer] Comment: HCV antibody was non-reactive. There is no laboratory evidence of HCV infection. In most cases, no further action is required. However, if recent HCV exposure is suspected, a test for HCV RNA (test code 81894) is suggested. For additional information please refer to http://Ondeego.Local.com/faq/MVC15a8 (This link is being provided for informational/ educational purposes only.) Blood Venous blood specimen / Unknown 02/14/2024 9:43 AM EDT 02/14/2024 9:44 AM EDT Narrative [facility] - 02/14/2024 11:34 PM EDT FASTING:NO FASTING: NO Winston Philip MD LAB BLOOD ORDERABLES Final R esult [facility] [address], [place] [address] [employer] [place] [employer] [address] [place] [address] * HIV-1/2 Antigen and Antibodies, Fourth Generation, with Reflexes (01/08/2024 11:56 AM EST) HIV Antigen/Antibody, 4th Generation NON-REAC TIVE NON-REAC TIVE [employer] [place] [employer] Comment: HIV-1 antigen and HIV-1/HIV-2 antibodies were not detected. There is no laboratory evidence of HIV infection. PLEASE NOTE: This information has been disclosed to you from records whose confidentiality may be protected by state law. If your state requires such protection, then the state law prohibits you from making any further disclosure of the information without the specific written consent of the person to whom it pertains, or as otherwise permitted by law. A general authorization for the release of medical or other information is NOT sufficient for this purpose. For additional information please refer to http://education.Local.com/faq/XKX049 (This link is being provided for informational/ educational purposes only.) The performance of this assay has not been clinically validated in patients less than 2 years old. Blood Venous blood specimen / Unknown 01/08/2024 11:56 AM EST 01/08/2024 11:57 AM EST Narrative [facility] - 01/09/2024 11:56 AM EST FASTING:NO FASTING: NO Winston Philip MD LAB BLOOD ORDERABLES Final R esult [facility] [address], [place] [address] [employer] [place] [facility] [address] [place] [address] * (ABNORMAL) LIPID PANEL W REFLEX TO [...] Most Recently Relevant to Health Maintenance Insurance [employer] * Guarantor: Aneudy Andrade Account Type Relation to Patient Date of Phone Billing Address Dental Self Care Teams Oil Dipper Relationship Specialty Start Date End Date Winston Philip MD [address] [place] [phone] PCP - General Internal Medicine 10/17/23 Bety Rich FNP Family Medicine 09/09/22 Jeanne Dickinson [address] [place] [address] 07/31/23 Everton Wade 06/19/25
--- OUTSIDE RECORDS SUMMARY | 2025-07-13 18:21 | XMS_ITS | Encounter Summary ---
Author Organization [employer] Address [address] [facility] 7 [place] [address] Care Team Providers Care Concrete Polisher Name Role Phone Bety Rich COLIN Unavailable Unavailable TeenaAriesna Unavailable Nicolette Donnelly Unavailable [phone] Winston Philip MD Primary Care Provider + [phone] Gloria Negrete Unavailable Everton Wade Unavailable Encounter Details Date Type Department Care Team (Late st Contact Info) Description 04/29/2024 Telephone [facility] [address] [phone] Winston Philip MD [address] [place] [address] [phone] Social History Tobacco Use Types Packs/Day Years [...] 8:13 AM EDT Patient went to a sensor specialist, they told him he should get a CT scan of his chest before his appointment with them on 06/04. He's asking we write the order for one so he can have one done. documented in this encounter Plan of Treatment Upcoming Encounters Date Type Department Care Team (Late st Contact Info) Description 07/16/2025 12:40 PM EDT Office Visit [facility] [address] [place] [phone] Winston Philip MD [address] [place] [address] documented as of this encounter Visit Diagnoses Not on filedocumented in this encounter Care Teams Concrete Polisher Relationship Specialty Start Date End Date Winston Philip MD [address] [place] [phone] PCP - General Internal Medicine 10/17/23 Bety Rich FNP Family Medicine 09/09/22 Jeanne Dickinson [address] [place] [phone] 07/31/[address] [address] 08/07/23 07/16/24 Gloria Negrete [address] [place] [phone] Community Health Worker 02/16/2405/28 Everton Wade 06/19/25 documented as of this encounter
--- OUTSIDE RECORDS SUMMARY | 2025-07-13 18:21 | XMS_ITS | Encounter Summary ---
Author Organization [employer] Address [address] 7[address] [place] [address] Care Team Providers Care Crystal Mounter Name Role Phone Bety Rich COLIN Unavailable Unavailable Jeanne Dickinson Unavailable Winston Philip MD Primary Care Provider + [phone] Everton Wade Unavailable Encounter Details Date Type Department Care Team (Late st Contact Info) Description 03/24/2025 Orders Only [facility] [address] [place] [address] Provider, Not In System Social History Tobacco Use Types Packs/Day Years [...] Description 07/16/2025 12:40 PM EDT Office Visit [facility] [address] [place] [phone] Winston Philip MD [address] [place] [address] documented as of this encounter Procedures Procedure Name Priority Date/Time Associated Diagnosis Comments LUNG CANCER SCREENING Routine 03/19/2025 11:46 AM EDT documented in this encounter Results * Hm Lung Cancer Screning (03/19/2025 11:46 AM EDT) Anatomical Region Laterality Modality Other us Not In System Provider HEALTH MAINTENANCE Edited Result - Final documented in this encounter Visit Diagnoses Not on filedocumented in this encounter Care Teams Crystal Mounter Relationship Specialty Start Date End Date Winston Philip MD [address] [place] [address] PCP - General Internal Medicine 10/17/23 Bety Rich FNP Family Medicine 09/09/22 Jeanne Dickinson [address] [place] [address] 07/31/23 Everton Wade 06/19/25 documented as of this encounter
--- OUTSIDE RECORDS SUMMARY | 2025-07-13 18:21 | XMS_ITS | Encounter Summary ---
Author Organization [employer] Address [address] [place] [address] 7 [place] [address] Care Team Providers Care Firm Administrator Name Role Phone Bety Rich COLIN Unavailable Unavailable Jeanne Dickinson Unavailable Winston Philip MD Primary Care Provider + [phone] Everton Wade Unavailable Encounter Details Date Type Department Care Team ([facility] st Contact Info) Description 11/07/[address] [phone] Winston Philip MD [address] [place] [address] [phone] Social History Tobacco Use Types Packs/Day Years [...] no longer in service. Advised antoine at [facility] to notify pt of need for appt with pcp. * Telephone Encounter - Jeanette Quiroz LPN - 11/07/2024 3:05 PM EST Hx of PE and DVT. Sydnee at [facility] asking how to long to hold the Eliquis before colonoscopy. Please advise. * Telephone Encounter - Vidhya Caban - 11/07/2024 2:15 PM EST Sydnee is a nurse calling from [facility] Silviano looking to speak with one of our [...] Description 07/16/2025 12:40 PM EDT Office Visit [facility] [address] [place] [phone] Winston Philip MD [address] [place] [address] documented as of this encounter Visit Diagnoses Not on filedocumented in this encounter Care Teams Firm Administrator Relationship Specialty Start Date End Date Winston Philip MD [address] [place] [address] PCP - General Internal Medicine 10/17/23 Bety Rich FNP Family Medicine 09/09/22 Jeanne Dickinsno [address] [place] [address] 07/31/23 Everton Wade 06/19/25 documented as of this encounter
--- OUTSIDE RECORDS SUMMARY | 2025-07-13 18:21 | XMS_ITS | Encounter Summary ---
Author Organization [employer] Address [address] [place] [address] 7 [place] [address] Care Team Providers Care Goat Farmer Name Role Phone Bety Rich COLIN Unavailable Unavailable OzAries thompsonna Unavailable Nicolette Donnelly Unavailable [phone] Winston Philip MD Primary Care Provider + [phone] Gloria Negrete Unavailable Everton Wade Unavailable Encounter Details Date Type Department Care Team (Late st Contact Info) Description 04/03/[address] [phone] Winston Philip MD [address] [place] [address] Social History Tobacco Use Types Packs/Day [...] scheduled. * Telephone Encounter - Ana Lilia Rosenhtal - 04/03/2024 4:00 PM EDT Looking for information on last visit. documented in this encounter Plan of Treatment Upcoming Encounters Date Type Department Care Team (Late st Contact Info) Description 07/16/2025 12:40 PM EDT Office Visit [facility] [address] [place] [phone] Winston Philip MD [address] [place] [address] documented as of this encounter Visit Diagnoses Not on filedocumented in this encounter Care Teams Goat Farmer Relationship Specialty Start Date End Date Winston Philip MD [address] [place] [address] PCP - General Internal Medicine 10/17/23 Bety Rich FNP Family Medicine 09/09/22 Jeanne Dickinson [address] [place] [address] 07/31/23 Nicolette Donnelly [address] [place] [address] 08/07/23 07/16/24 [place] [address] Community Health Worker 02/16/2405/28 Everton Wade 06/19/25 documented as of this encounter
--- OUTSIDE RECORDS SUMMARY | 2025-07-13 18:21 | XMS_ITS | Encounter Summary ---
Author Organization [employer] Address [address] [place] [address] 7 [place] [address] Care Team Providers Care Configuration Management Consultant Name Role Phone Bety Rich COLIN Unavailable Unavailable OzAries thompsonna Unavailable Nicolette Donnelly Unavailable [phone] Winston Philip MD Primary Care Provider + [phone] Everton Wade Unavailable Encounter Details Date Type Department Care Team (Late st Contact Info) Description 06/03/[address] [phone] Winston Philip MD [address] [place] [address] [phone] Social History Tobacco Use Types Packs/Day Years [...] - 06/03/2024 11:44 AM EDT Faxed in [facility] pcp forms several months ago, she is looking for them to be filled out and faxed back.[phone] documented in this encounter Plan of Treatment Upcoming Encounters Date Type Department Care Team (Late st Contact Info) Description 07/16/2025 12:40 PM EDT Office Visit [facility] [address] [place] [phone] Winston Philip MD [address] [place] [address] documented as of this encounter Visit Diagnoses Not on filedocumented in this encounter Care Teams Configuration Management Consultant Relationship Specialty Start Date End Date Winston Philip MD [address] [place] [address] PCP - General Internal Medicine 10/17/23 Bety Rich FNP Family Medicine 09/09/22 Jeanne Dickinson [address] [place] [address] 07/31/23 Nicolette Donnelly [address] [place] [address] 08/07/23 07/16/24 Everton Wade 06/19/25 documented as of this encounter
--- OUTSIDE RECORDS SUMMARY | 2025-07-13 18:21 | XMS_ITS | Encounter Summary ---
Author Organization [employer] Address [address] [facility] 7 [place] [address] Care Team Providers Care Mine Wirer Name Role Phone Bety Rich Unavailable Unavailable AlessioAries de la garzana Unavailable Nicolette Donnelly Unavailable [phone] Winston Philip MD Primary Care Provider + [phone] Gloria Negrete Unavailable Everton Wade Unavailable Reason for Visit * Reason Comments Med Refill Encounter Details Date Type Department Care Team (Late st Contact Info) Description 02/10/2024 Refill [facility] [address] [place] [address] Bety Rich FNP Onychomycosis Social [...] the authorized approval for the referral to [facility], theydo not have it * Telephone [...] Center 02/14/2024 9:00 AM Winston Philip MD [facility] Comments: documented in this encounter Plan of Treatment Upcoming Encounters Date Type Department Care Team (Late st Contact Info) Description 07/16/2025 12:40 PM EDT Office Visit [facility] [address] [place] [phone] Winston Philip MD [address] [place] [address] documented as of this encounter Visit Diagnoses Diagnosis Onychomycosis Dermatophytosis of nail documented in this encounter Care Teams Mine Wirer Relationship Specialty Start Date End Date Winston Philip MD [address] [place] [address] PCP - General Internal Medicine 10/17/23 Bety Rich FNP Family Medicine 09/09/22 Jeanne Dickinson [address] [place] [address] 07/31/23 Nicolette Donnelly [address] [place] [address] 08/07/23 07/16/24 Gloria Negrete [address] [place] [address] Community Health Worker 02/16/2405/28 Everton Wade 06/19/25 documented as of this encounter
--- OUTSIDE RECORDS SUMMARY | 2025-07-13 18:21 | XMS_ITS ---
Author Organization [employer] Address [address] [place] [address] 7 [place] [address] Care Team Providers Care Manual Tester Name Role Phone Bety Rich Unavailable Unavailable Jeanne Dickinson Unavailable Winston Philip MD Primary Care Provider + [phone] Everton Wade Unavailable CM Complex Status:Enrolled (Active) Start date:02/18/2025 Enrollment date:06/11/2025 Enrollment reason:[facility] Case Team Name Relationship Phone February Bravo(Responsible Staff) [phone] Continued Care and Services Coordination
--- OUTSIDE RECORDS SUMMARY | 2025-07-13 18:21 | XMS_ITS ---
Author Organization [employer] Address [address] [place] [address] 7 [place] [address] Care Team Providers Care Animal Pathologist Name Role Phone Rich, Bety SHAW Unavailable Unavailable Jeanne Dickinson Unavailable Winston Philip MD Primary Care Provider + [phone] Everton Wade Unavailable [facility] Complex Status:Outreach In Progress (Enrolling) Start date:06/19/2025 Enrollment reason:C3 Manual Referral Overview [facility] C3 eligible Case Team Name Relationship Phone Everton Wade(Responsible Staff) [phone] Continued Care and Services Coordination
--- OUTSIDE RECORDS SUMMARY | 2025-07-13 18:21 | XMS_ITS | Encounter Summary ---
Author Organization [employer] Address [address] [place] [address] 7 [place] [address] Care Team Providers Care Test Baker Name Role Phone Bety Rich COLIN Unavailable Unavailable OzAries thompsonna Unavailable Nicolette Donnelly Unavailable [phone] Winston Philip MD Primary Care Provider + [phone] Gloria Negrete Unavailable Everton Wade Unavailable Encounter Details Date Type Department Care Team (Late st Contact Info) Description 04/03/[address] [phone] Winston Philip MD [address] [place] [address] Social History Tobacco Use Types Packs/Day [...] EDT Office Visit [facility] [address] [place] [phone] Winston Philip MD [address] [place] [address] documented as of this encounter Visit Diagnoses Not on filedocumented in this encounter Care Teams Test Baker Relationship Specialty Start Date End Date Winston Philip MD [address] [place] [address] PCP - General Internal Medicine 10/17/23 Bety Rich FNP Family Medicine 09/09/22 Jenane Dickinson [address] [place] [address] 07/31/[address] [address] 08/07/23 07/16/24 Gloria Negrete [address] [place] [address] [place], [place] [address] [address] Community Health Worker 02/16/2405/28 Everton Wade 06/19/25 documented as of this encounter
--- OUTSIDE RECORDS SUMMARY | 2025-07-13 18:21 | XMS_ITS | Encounter Summary ---
Author Organization [employer] Address [address] [place] [address] 7 [place] [address] Care Team Providers Care Crystal Gazer Name Role Phone Bety Rich Unavailable Unavailable Jeanne Dickinson Unavailable Silviano Freire Unasszaida Primary Care Provider [facility] Donnelly Nicolette Unavailable [phone] Winston Philip MD Primary Care Provider + [phone] Gloria Negrete Unavailable Everton Wade Unavailable Reason for Visit * Reason Comments Med Refill Encounter Details Date Type Department Care Team (Late st Contact Info) Description 10/09/[address] [phone] Bety Rich FNP Onychomycosis Social [...] Description 07/16/2025 12:40 PM EDT Office Visit [address] [phone] Winston Philip MD [address] [place] [address] documented as of this encounter Visit Diagnoses Diagnosis Onychomycosis Dermatophytosis of nail documented in this encounter Care Teams Crystal Gazer Relationship Specialty Start Date End Date PcpSilviano Unassigned PCP - General Family Medicine 08/01/23 10/16/23 Winston Philip MD [address] [place] [address] PCP - General Internal Medicine 10/17/23 Bety Rich FNP Family Medicine 09/09/22 Jeanne Dickinson [address] [place] [address] 07/31/23 Nicolette Donnelly [address] [place] [address] 08/07/23 07/16/24 Gloria Negrete [address] [place] [address] Community Health Worker 02/16/2405/28 Everton Wade 06/19/25 documented as of this encounter
--- OUTSIDE RECORDS SUMMARY | 2025-07-13 18:21 | XMS_ITS | Encounter Summary ---
Author Organization [employer] Address [address] [facility] 7t [place] [address] Care Team Providers Care Crm Marketing Executive Name Role Phone Bety Rich COLIN Unavailable Unavailable Jeanne Dickinson Unavailable Winston Philip MD Primary Care Provider + [phone] Everton Wade Unavailable Encounter Details Date Type Department Care Team (Late st Contact Info) Description 03/26/2025 Orders Only [facility] Information Management [address] [place] [address] Provider, Not In System Social History Tobacco [...] Description 07/16/2025 12:40 PM EDT Office Visit [facility] [address] [place] [phone] Winston Philip MD [address] [place] [address] documented as of this encounter Procedures Procedure Name Priority Date/Time Associated Diagnosis Comments HM COLONOSCOPY Routine 11/15/2024 2:58 PM EST documented in this encounter Results * Hm Colonoscopy (11/15/2024 2:58 PM EST) us Not In System Provider HEALTH MAINTENANCE Edited Result - Final documented in this encounter Visit Diagnoses Not on filedocumented in this encounter Care Teams Crm Marketing Executive Relationship Specialty Start Date End Date Winston Philip MD [address] [place] [address] PCP - General Internal Medicine 10/17/23 Bety Rich FNP Family Medicine 09/09/22 Jeanne Dickinson [address] [place] [address] 07/31/23 Everton Wade 06/19/25 documented as of this encounter
--- OUTSIDE RECORDS SUMMARY | 2025-07-13 18:21 | XMS_ITS | Encounter Summary ---
Author Organization [employer] Address [address] [place] [address] 7 [place] [address] Care Team Providers Care Adapted Physical Education Aide Name Role Phone Bety Rich COLIN Unavailable Unavailable Jeanne Dickinson Unavailable Winston Philip MD Primary Care Provider + [phone] Everton Wade Unavailable Encounter Details Date Type Department Care Team ([facility] st Contact Info) Description 08/27/[address] [phone] Winston Philip MD [address] [place] [address] [phone] Social History Tobacco Use Types Packs/Day Years [...] a current med list be faxed to [phone] at attn Rina documented in this encounter Plan of Treatment Upcoming Encounters Date Type Department Care Team (Late st Contact Info) Description 07/16/2025 12:40 PM EDT Office Visit [facility] [address] [place] [phone] Winston Philip MD [address] [place] [address] documented as of this encounter Visit Diagnoses Not on filedocumented in this encounter Care Teams Adapted Physical Education Aide Relationship Specialty Start Date End Date Winston Philip MD [address] [place] [address] PCP - General Internal Medicine 10/17/23 Bety Rich FNP Family Medicine 09/09/22 Jeanne Dickinson [address] [place] [address] 07/31/23 Everton Wade 06/19/25 documented as of this encounter
--- NOTE | 2025-07-13 19:35 | PC.NURSE ---
this rn assumed care of pt. pt attempting to exit bed, unsteady on feet, swearing at staff. security called to bedside. pt states he wants to go home, this rn explained to pt that pt is unsteady. pt given phone to call ride. pt unable to reach person for sober ride. pt medicated per mar per request and assisted back into bed.
--- NOTE | 2025-07-13 20:34 | MHC.EDTECH ---
patient refused BP
--- NOTE | 2025-07-13 22:32 | MHC.EDTECH ---
waiting for patient to wake up to do his vitals due to him being aggressive and agitated
[2025-07-14 00:31] VITALS: BP 137/74; PULSE 84; RESP 15; TEMP 36.6; O2SAT 95
[2025-07-14 08:09] VITALS: BP 137/74; PULSE 84; RESP 15; TEMP 36.6; O2SAT 95
--- NOTE | 2025-07-14 08:10 | PC.NURSE ---
gait steady, alert and oriented, belongings returned to patient
== END 2025-07-14 08:11 | disposition home or self-care (01) ==
PROVIDERS: Physician Assistant; Emergency Provider Emergency Medicine
DX: F10.129 Alcohol abuse with intoxication, unspecified (principal); Z51.81 Encounter for therapeutic drug level monitoring; Z79.899 Other long term (current) drug therapy; Z71.41 Alcohol abuse counseling and surveillance of alcoholic
CPT/HCPCS: 36415; 80053; 80307; 83735; 85025; 99284

== ENCOUNTER 2025-08-15 10:11 | Emergency (ER) | payer MEDICAID, SELFPAY ==
[2025-08-15] VITALS (8 sets, daily range): BP systolic 106–139; BP diastolic 70–95; PULSE 80–95; RESP 14–22; TEMP 36.9–37.2; O2SAT 87–99; BMI 28.8
--- NOTE | ~2025-08-15 | CT_ITS ---
EXAMINATION: CT CHEST ANGIOGRAPHY WITH IV CONTRAST INDICATION: dyspnea, hx of DVT not taking his eliquis COMPARISON: Comparison is made with the prior examination dated 04/27/2025. TECHNIQUE: Helical CT scan of the chest was performed following administration of intravenous contrast (65 mL Omnipaque 350). The contrast bolus was timed to optimally opacify the pulmonary arteries. Thin sections were obtained through the pulmonary arteries. Coronal and sagittal reformatted images were generated. 3D/MIP reconstructed images are also obtained and reviewed. This CT exam was performed with one or more of the following dose reduction techniques: automated exposure control, adjustment of the mA and/or kV according to patient size, use of iterative reconstruction technique. DLP: 456 mGy-cm CHEST: THYROID: The thyroid gland is unremarkable. PULMONARY ARTERIES: No intraluminal filling defects are identified within the pulmonary arteries to suggest pulmonary emboli. LUNGS: There is moderate respiratory motion artifact. There is a 3 mm nodule in the right upper lobe (series 5, image 40) without change. There is dependent atelectasis bilaterally. MEDIASTINUM: There is no mediastinal lymphadenopathy. JACKI: There is no hilar lymphadenopathy. CARDIOVASCULATURE: The heart is normal in size. There is no pericardial effusion. The thoracic aorta is normal in caliber. DEGREE OF CORONARY CALCIFICATION: not evaluable, due to contrast in the coronary arteries PLEURA: There is no pleural effusion. No pneumothorax. MAIN AIRWAYS: The mainstem bronchi and proximal branches are patent. AXILLA: There is no axillary lymphadenopathy. UPPER ABDOMEN: The visualized portions of the liver, spleen, and adrenals are unremarkable. BONES AND SOFT TISSUES: There is degenerative disc disease of the spine. CT/CT angio chest PE protocol IMPRESSION: No evidence of pulmonary emboli. No significant change from the prior study. Electronically signed by: Aneudy Pandey MD 08/15/2025 12:43 PM EDT
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
--- NOTE | 2025-08-15 10:16 | ECG_ITS ---
Test Reason : HYPOXIA Blood Pressure : */* mmHG Vent. Rate : 94 BPM Atrial Rate : 94 BPM P-R Int : 162 ms QRS Dur : 84 ms QT Int : 358 ms P-R-T Axes : 61 -22 16 degrees QTcB Int : 447 ms Normal sinus rhythm Normal ECG When compared with ECG of 14-Jan-2025 03:11, No significant change was found Referred By: Kayla Paul Electronically Signed By: ALLA STEINER
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
[2025-08-15] MEDS: diazePAM 10 MG/2 ML CARTRIDGE 2.5 MG IVPUSH (11:03)
[2025-08-15 11:06] LABS: MANUAL DIFF FLAG NO
[2025-08-15 11:10] LABS: Hematocrit 44.5 % (42.0-52.0); Hemoglobin 15.4 g/dl (14.0-18.0); Imm Gran Abs Auto 0.07 X10*3/uL (0.00-0.03); Imm Gran Pct Auto 1.4 % (0.0-0.4); Lymphocytes Absolute Auto 1.5 X10*3/uL (1.2-4.9); Mean Corpuscular HGB Conc 34.6 g/dl (31.0-36.0); Mean Corpuscular Hemoglobin 31.8 pg (27.0-33.0); Mean Corpuscular Volume 91.8 fL (80.0-98.0); NRBC Abs Auto 0.000 X10*3/uL (0.0-0.012); NRBC Pct Auto 0.0 /100WBC (0.0-0.2); Platelet Count 247 X10*3/uL (160-400); Red Blood Count 4.85 X10*6/uL (4.60-5.80); White Blood Count 5.0 X10*3/uL (4.8-10.8)
--- NOTE | 2025-08-15 11:10 | PC.NURSE ---
Upon meeting pt, pt began screaming get me my fucking nicotine gum . Pt already took his personal gum prior to this RN arrival to room. Pt actively chewing on gum and occasionally sticking it to the stretcher side rail. Dr. Paul aware and brought to bedside. PRN nicotine gum ordered. Pt redirected back to bed and verbally deescalated by RN, MD emmanuel, and security.
[2025-08-15] MEDS: Thiamine HCL 200 MG in 0.9 % Sodium Chloride 100 ML 204 MG IV (11:20)
[2025-08-15 11:28] LABS: Alanine Aminotransferase 20 U/L (0-40); Albumin Level 4.7 g/dL (3.5-5.0); Alkaline Phosphatase 62 U/L (39-117); Anion Gap 18 (12-20); Aspartate Amino Transferase 35 U/L (5-37); Blood Urea Nitrogen 17 mg/dL (9-16); Calcium 8.7 mg/dL (8.4-10.2); Carbon Dioxide 23 mmol/L (22-29); Chloride 109 mmol/L (96-108); Creatinine Clr Calc Pharmacy 85.7; Estimated Glomerular Filt Rate > 60; Lipase 17 U/L (8-78); Magnesium 2.2 mg/dL (1.6-2.6); Potassium 4.1 mmol/L (3.3-5.1); Sodium 146 mmol/L (135-145); Total Protein 7.4 g/dL (6.5-8.0)
[2025-08-15 11:32] LABS: NT Pro B Type Natriuretic Pept 26.2 pg/mL (<300)
[2025-08-15 11:33] LABS: Troponin-I High Sensitivity < 2.7 ng/L (<3.5-35.0)
[2025-08-15] MEDS: Lactated Ringers 1,000 ML 999 ML IV (11:40)
[2025-08-15] MEDS: Magnesium Sulfate/H2O 2 GM/50 ML PIGGYBACK IV (11:41)
--- OUTSIDE RECORDS SUMMARY | 2025-08-15 11:59 | XMS_ITS | Encounter Summary ---
Author Organization [employer] Address [address] [facility] 7t [place] [address] Care Team Providers Care Lens Finisher Name Role Phone Bety Rich COLIN Unavailable Unavailable Jeanne Dickinson Unavailable Winston Philip MD Primary Care Provider + [phone] Everton Wade Unavailable Encounter Details Date Type Department Care Team (Late st Contact Info) Description 03/24/2025 Orders Only [facility] [address] [place] [address] Provider, Not In System Social History Tobacco [...] Care Team (Late st Contact Info) Description 09/01/2025 10:00 AM EDT Office Visit [facility] [address] [place] [phone] Winston Philip MD [address] [place] [phone] documented as of this encounter Procedures Procedure [...] on filedocumented in this encounter Care Teams Lens Finisher Relationship Specialty Start Date End Date Winston Philip MD [address] [place] [phone] PCP - General Internal Medicine 10/17/23 Bety Rich FNP Family Medicine 09/09/22 Jeanne Dickinson [address] [place] [phone] 07/31/23 Everton Wade 06/19/25 documented as of this encounter
--- OUTSIDE RECORDS SUMMARY | 2025-08-15 11:59 | XMS_ITS | Encounter Summary ---
Author Organization [employer] Address [address] [place] [address] 7 [place] [address] Care Team Providers Care Manager Poker Name Role Phone Bety Rich COLIN Unavailable Unavailable Jeanne Dickinson Unavailable Winston Philip MD Primary Care Provider + [phone] Everton Wade Unavailable Encounter Details Date Type Department Care Team ([facility] st Contact Info) Description 11/07/[address] [phone] Winston Philip MD [address] [place] [address] [phone] Social History Tobacco Use Types Packs/Day Years [...] no longer in service. Advised antoine at [facility] to notify pt of need for appt with pcp. * Telephone Encounter - Jeanette Quiroz LPN - 11/07/2024 3:05 PM EST Hx of PE and DVT. Sydnee at [facility] asking how to long to hold the Eliquis before colonoscopy. Please advise. * Telephone Encounter - Vidhya Caban - 11/07/2024 2:15 PM EST Sydnee is a nurse calling from [facility] Silviano looking to speak with one of [...] Description 09/01/2025 10:00 AM EDT Office [facility] [address] [place] [phone] Winston Philip MD [address] [place] [phone] documented as of this encounter Visit Diagnoses Not on filedocumented in this encounter Care Teams Manager Poker Relationship Specialty Start Date End Date Winston Philip MD [address] [place] [address] PCP - General Internal Medicine 10/17/23 Bety Rich FNP Family Medicine 09/09/22 Jeanne Dickinson [address] [place] [phone] 07/31/23 Everton Wade 06/19/25 documented as of this encounter
--- OUTSIDE RECORDS SUMMARY | 2025-08-15 11:59 | XMS_ITS | Encounter Summary ---
Author Organization [employer] Address [address] [place] [address] 7 [place] [address] Care Team Providers Care Photonics Engineering Technologist Name Role Phone Bety Rich COLIN Unavailable Unavailable Jeanne Dickinson Unavailable Winston Philip MD Primary Care Provider + [phone] Everton Wade Unavailable Encounter Details Date Type Department Care Team ([facility] st Contact Info) Description 08/27/[address] [phone] Winston Philip MD [address] [place] [address] [phone] Social History Tobacco Use Types Packs/Day Years [...] a current med list be faxed to [phone] at attn Rina documented in this encounter Plan of Treatment Upcoming Encounters Date Type Department Care Team (Late st Contact Info) Description 09/01/2025 10:00 AM EDT Office Visit [facility] [address] [place] [phone] Winston Philip MD [address] [place] [phone] documented as of this encounter Visit Diagnoses Not on filedocumented in this encounter Care Teams Photonics Engineering Technologist Relationship Specialty Start Date End Date Winston Philip MD [address] [place] [address] PCP - General Internal Medicine 10/17/23 Bety Rich FNP Family Medicine 09/09/22 Jeanne Dickinson [address] [place] [address] 07/31/23 Everton Wade 06/19/25 documented as of this encounter
--- OUTSIDE RECORDS SUMMARY | 2025-08-15 11:59 | XMS_ITS | Encounter Summary ---
Author Organization [employer] Address [address] [place] [phone] Care Team Providers Care Hand Sole Sewer Name Role Phone Bety Rich COLIN Unavailable Unavailable Jeanne Dickinson Unavailable Silviano Freire Unassigned Primary Care Provider Junior, [place] Unavailable [phone] Winston Philip MD Primary Care Provider [phone] Gloria Negrete Unavailable Everton Wade Unavailable Encounter Details Date Type Department Care Team (Late st Contact Info) Description 08/31/[address] [phone] PcpSilviano Unassigned Social History Tobacco [...] Description 09/01/2025 10:00 AM EDT Office Visit [address] [phone] Winston Philip MD [address] [place] [phone] documented as of this encounter Visit Diagnoses Not on filedocumented in this encounter Care Teams Hand Sole Sewer Relationship Specialty Start Date End Date PcpSilviano Unassigned PCP - General Family Medicine 08/01/23 10/16/23 Winston Philip MD [address] [place] [phone] PCP - General Internal Medicine 10/17/23 Bety Rich FNP Family Medicine 09/09/22 Jeanne Dickinson [address] [place] [phone] 07/31/23 Nicolette Donnelly [address] [place] [phone] 08/07/23 07/16/24 Gloria Negrete [address] [place] [phone] Community Health Worker 02/16/2405/28 Everton Wade 06/19/25 documented as of this encounter
--- OUTSIDE RECORDS SUMMARY | 2025-08-15 11:59 | XMS_ITS | Encounter Summary ---
Author Organization [employer] Address [address] [place] [address] 7 [place] [address] Care Team Providers Care Lens Grinder Name Role Phone Bety Rich COLIN Unavailable Unavailable Jeanne Dickinson Unavailable Winston Philip MD Primary Care Provider + [phone] Everton Wade Unavailable Encounter Details Date Type Department Care Team (Late st Contact Info) Description 02/06/[address] [phone] Winston Philip MD [address] [place] [address] [phone] Social History Tobacco Use Types Packs/Day Years [...] a PT-1 for a medical appointment. Patient's [facility] ID: [id number] Complete Pickup Address (home): [address] [place] [phone] Alternate pickup address (optional): Patient Emergency Contact Name and Number (optional): Drop off address (list all locations, including name of facility and care being received): [address] How many visits per month needed: [...] Description 09/01/2025 10:00 AM EDT Office Visit [facility] [address] [place] [phone] Winston Philip MD [address] [place] [phone] documented as of this encounter Visit Diagnoses Not on filedocumented in this encounter Care Teams Lens Grinder Relationship Specialty Start Date End Date Winston Philip MD [address] [place] [address] PCP - General Internal Medicine 10/17/23 Bety Rich FNP Family Medicine 09/09/22 Jeanne Dickinson [address] [place] [phone] 07/31/23 Everton Wade 06/19/25 documented as of this encounter
--- OUTSIDE RECORDS SUMMARY | 2025-08-15 11:59 | XMS_ITS | Encounter Summary ---
Author Organization [employer] Address [address] [place] [address] 7 [place] [address] Care Team Providers Care Car Unloader Name Role Phone Bety Rich Unavailable Unavailable Jeanne Dickinson Unavailable Silviano Freire Unasszaida Primary Care Provider [facility] Donnelly Nicolette Unavailable [phone] Winston Philip MD Primary Care Provider + [phone] Gloria Negrete Unavailable Everton Wade Unavailable Reason for Visit * Reason Comments Med Refill Encounter Details Date Type Department Care Team (Late st Contact Info) Description 10/09/[address] [address] Bety Rich FNP Onychomycosis Social [...] Description 09/01/2025 10:00 AM EDT Office Visit [address] [phone] Winston Philip MD [address] [place] [address] documented as of this encounter Visit Diagnoses Diagnosis Onychomycosis Dermatophytosis of nail documented in this encounter Care Teams Car Unloader Relationship Specialty Start Date End Date PcpSilviano Unassigned PCP - General Family Medicine 08/01/23 10/16/23 Winston Philip MD [address] [place] [address] PCP - General Internal Medicine 10/17/23 Bety Rich FNP Family Medicine 09/09/22 Jeanne Dickinson [address] [place] [address] 07/31/23 Nicolette Donnelly [address] [place] [address] 08/07/23 07/16/24 Gloria Negrete [address] [place] [address] Community Health Worker 02/16/2405/28 Everton Wade 06/19/25 documented as of this encounter
--- OUTSIDE RECORDS SUMMARY | 2025-08-15 11:59 | XMS_ITS | Clinical Summary ---
Author Organization [employer] Address [address] [place] [address] 7t [place] [address] Care Team Providers Care Gas Engine Mechanic Name Role Phone Bety Rich COLIN Unavailable Unavailable Jeanne Dickinson Unavailable Winston Philip MD Primary Care Provider + [phone] Everton Wade Unavailable Allergies Active Allergy Reactions Criticality Noted Date Comments Gramineae Pollens 05/05/2020 Naltrexone Hallucinations 10/11/2021 Medications albuterol 108 (90 Base) MCG/ACT inhaler Inhale 2 puffs every 4 (four) hours if needed for wheezing or shortness of breath. [place] [facility] [place] Active acamprosate (Campral) 333 MG EC [...] thrombosis (DVT) of lower extremity, unspecified laterality (HCC),History of blood clots Take 1 tablet (5 [...] MG gumIndications:To bacco dependence syndrome CHEW 1 PIECE BY MOUTH IF NEEDED FOR SMOKING CESSATION (MAX 24 PIECES/ DAY). 720 each 3 025 Active nicotine polacrilex (Nicorette) 4 MG gumIndications:To bacco dependence syndrome CHEW 1 EACH (4 MG) BY MOUTH IF NEEDED FOR SMOKING CESSATION (MAX 24 PIECES/ DAY). 220 each 3 025 2024 Discontinued Active Problems Problem Noted Date Diagnosed Date Mixed hyperlipidemia 04/18/2022 Primary localized osteoarthrosis of shoulder reg ion 04/18/2022 Tinnitus 04/18/2022 Nondependent alcohol abuse, episodic drinking be havior 05/05/2020 Tobacco dependence syndrome 05/05/2020 Encounters Date Type Department Care Team Description 08/08/2025 10:00 AM EDT Community Care Management [facility] [address] [facility] 200 [place] [address] Jeanne Dickinson 08/08/[address] [address] Winston Philip MD 08/04/2025 Patient Outreach [facility] Department [address] [place] [phone] Everton Wade 08/01/2025 Patient Outreach [facility] Department [address] [place] [phone] Everton Wade 08/01/2025 Plan of Care Documentation [facility] Department [address] [place] [phone] 08/01/2025 Patient Outreach [address] [address] Bravo, 08/01/2025 Patient Outreach [facility] Department [address] [place] [phone] Everton Wade 07/31/2025 Patient Outreach [facility] Department [address] [place] [address] Everton Wade 07/30/2025 Patient Outreach [facility] Department [address] [place] [phone] Everton Wade c3 care management ([facility] Provider Notification- Enrolled/SDOH completed ) 07/25/2025 Refill [facility] [address] [address] Winston Philip MD Tobacco dependence syndrome 06/30/2025 Patient Outreach Replaced By [facility] ([facility]) Department [address] [place] [phone] Everton Wade 06/26/2025 Patient Outreach Replaced By [facility] () Department [address] [place] [phone] Everton Wade 06/23/2025 Refill [facility] [address] [address] Winston Philip MD Tobacco dependence syndrome 06/22/2025 Refill [facility] [address] [phone] Winston Philip MD Tobacco dependence syndrome 06/19/2025 Patient Outreach Replaced By [facility] () Department [address] [place] [phone] Everton Wade c3 care management 06/11/2025 Patient Outreach [address] [phone] Boivin, 06/03/[address] [address] Winston Philip MD Thrombocytopenia ([facility] 05/28/[address] [address] Winston Philip MD from Last 3 Months [...] is your housing situation today? I have housing today, but I am worried about losing housing in the future 07/30/[address] you li ve. Do you have problems with any of the following? I am not sure 07/30/2025 Food Insecurity Answer Date Recorded Within the past 12 months, y ou worried that your food would run out before you got money to buy more: Sometimes True 2024 Within the past 12 months,th e food you bought just didn't last and you didn't have enough money to get more: Sometimes True 07/30/2025 Transportation Answer Date Recorded In the past 12 months, has l ack of transportation kept you from medical appts, meetings, work or from getting things needed for daily living? I am not sure 07/30/2025 Utilities Answer Date Recorded In the past 12 months, has t he electric, gas, oil or water company threatened to shut off services in your home? I am not sure 07/30/2025 Depression Answer Date Recorded Patient Health Questionnaire-2 Score 0 12/06/2023 Internet Access Answer Date Recorded Internet Access Q1 Yes 07/30/2025 Internet Access Q2 Not on file 07/30/2025 Sex and Gender Information Value Date Recorded [...] Description 09/01/2025 10:00 AM EDT Office Visit [facility] [address] [place] [phone] Winston Philip MD [address] [place] [address] [phone] Health Maintenance Due Date Last Done Comments CT Colonography 1961 FIT DNA/Cologuard 1961 FIT 1961 FOBT 1961 Sigmoidoscopy 1961 Disability Screening 1961 Alcohol/Substance Use Screening 1973 Zoster Vaccines (1 of 2) 2011 Pneumococcal Vaccine: 50+ Years (2 of 2 - PCV) 11/29/2017 11/29/2016 Tobacco Screening 03/17/2024 03/17/2023 Depression Screening 12/06/2024 12/06/2023, 12/06/19 24 COVID-19 Vaccine ( season) 2025 01/08/2024, 02/09/2023, 11/11/2021, Additional history exists Influenza Vaccine (#1) 2025 , 08/24/2022, 07/13/2020, Additional history exists Lung Cancer Screening 03/19/2026 03/19/2025 SDOH Screening 07/30/2026 07/30/2025 Lipid Panel 09/30/2027 09/30/2022, 04/2 07/2022, 05/06/2020 Colonoscopy 11/15/2027 11/15/2024 Colorectal Cancer Screening [...] CANCER SCREENING Routine 03/19/2025 11:46 AM EDT COLONOSCOPY Routine 11/15/2024 2:58 PM EST HEPATITIS PANEL, ACUTE W/REFLEX TO CONFIRMATION Routine 02/14/2024 9:43 AM EDT Abnormal LFTs HIV 1/2 ANTIGEN/ANTIBODY, FOURTH GENERATION W/RFL Routine 01/08/2024 11:56 AM EST Screening examination for infectious disease LIPID PANEL WITH REFLEX TO DIRECT LDL Routine 09/30/2022 1:49 PM EST from Last 3 Months or Most Recently Relevant to Health Maintenance Results * Lung Cancer Screning (03/19/2025 11:46 AM EDT) Anatomical Region Laterality Modality Other us Not In System Provider HEALTH MAINTENANCE Edited Result - Final * Colonoscopy (11/15/2024 2:58 PM EST) us Not In System Provider HEALTH MAINTENANCE Edited Result - Final * Hepatitis Panel, Acute??with Reflex to??Confirmation (02/14/2024 9:43 AM EDT) Hepatitis A IgM NON-REACT GABRIELLA NON-REACT GABRIELLA [facility] [place] [email or web address] Comment: For additional information, please refer to http://Tripwolf/faq/NHK626 (This link is being provided for informational/ educational purposes only.) Hepatitis B Surface Ag NON-REACT GABRIELLA NON-REACT GABRIELLA [facility] [place] [email or web address] Comment: For additional information, please refer to http://Tripwolf/faq/RSD787 (This link is being provided for informational/ educational purposes only.) Hepatitis B Core Antibody IgM NON-REACT GABRIELLA NON-REACT GABRIELLA [facility] [place] [email or web address] Comment: For additional information, please refer to http://Get Together.BioMetric Solution/faq/VVI356 (This link is being provided for informational/ educational purposes only.) Hepatitis C Antibody NON-REACT GABRIELLA NON-REACT GABRIELLA [facility] [place] [email or web address] Comment: HCV antibody was non-reactive. There is no laboratory evidence of HCV infection. In most cases, no further action is required. However, if recent HCV exposure is suspected, a test for HCV RNA (test code 95460) is suggested. For additional information please refer to http://Tripwolf/faq/WNX71a8 (This link is being provided for informational/ educational purposes only.) Blood Venous blood specimen / Unknown 02/14/2024 9:43 AM EDT 02/14/2024 9:44 AM EDT Narrative [facility] - 02/14/2024 11:34 PM EDT FASTING:NO FASTING: NO us Winston Philip MD LAB BLOOD ORDERABLES Final R esult [facility] [address], [place] [address] [facility] [place] [email or web address] [address] [place] [address] * HIV-1/2 Antigen and Antibodies, Fourth Generation, with Reflexes (01/08/2024 11:56 AM EST) HIV Antigen/Antibody, 4th Generation NON-REAC TIVE NON-REAC TIVE [facility] Comment: HIV-1 antigen and HIV-1/HIV-2 antibodies [...] purpose. For additional information please refer to http://education.BioMetric Solution/faq/OXQ433 (This link is being provided for informational/ educational purposes only.) The performance of this assay has not been clinically validated in patients less than 2 years old. Blood Venous blood specimen / Unknown 01/08/2024 11:56 AM EST 01/08/2024 11:57 AM EST Narrative [facility] - 01/09/2024 11:56 AM EST FASTING:NO FASTING: NO us Winston Philip MD LAB BLOOD ORDERABLES Final R esult [facility] [address], [place] [address] [email or web address] [address] [place] [address] * (ABNORMAL) LIPID PANEL W REFLEX TO DLDL (09/30/2022 1:49 PM EST) Pathologist [facility] Cholesterol, Total 149 (<200) MG/DL CONVERTED LEGACY [...] Most Recently Relevant to Health Maintenance Insurance [employer] C3 * Guarantor: Aneudy Andrade Account Type Relation to Patient Date of Phone Billing Address Dental Self Care Teams Gas Engine Mechanic Relationship Specialty Start Date End Date Winston Philip MD [address] [place] [address] PCP - General Internal Medicine 10/17/23 Bety Rich FNP Family Medicine 09/09/22 Jeanne Dickinson [address] [place] [address] 07/31/23 Everton Wade 06/19/25
--- OUTSIDE RECORDS SUMMARY | 2025-08-15 11:59 | XMS_ITS ---
Author Organization [employer] Address [address] [place] [address] 7 [place] [address] Care Team Providers Care Short Haul Driver Name Role Phone Rich, Bety SHAW Unavailable Unavailable Jeanne Dickinson Unavailable Winston Philip MD Primary Care Provider + [phone] Everton Wade Unavailable [facility] Complex Status:Enrolled (Active) Start date:06/19/2025 Enrollment date:07/30/2025 Enrollment reason:C3 Manual Referral Overview Silv[facility].Evs C3 eligible Case Team Name Relationship Phone Everton Wade(Responsible Staff) [phone] Continued Care and Services Coordination
--- OUTSIDE RECORDS SUMMARY | 2025-08-15 11:59 | XMS_ITS | Encounter Summary ---
Author Organization [employer] Address [address] [facility] 7t [place] [address] Care Team Providers Care Asphalt Paving Foreman Name Role Phone Bety Rich COLIN Unavailable Unavailable Jeanne Dickinson Unavailable Winston Philip MD Primary Care Provider + [phone] Everton Wade Unavailable Encounter Details Date Type Department Care Team (Late st Contact Info) Description 03/26/2025 Orders Only [facility] Information Management [address] [place] [address] Provider, Not In System Social History Tobacco [...] Description 09/01/2025 10:00 AM EDT Office Visit [facility] [address] [place] [phone] Winston Philip MD [address] [place] [address] documented as of this encounter Procedures Procedure Name Priority Date/Time Associated Diagnosis Comments HM COLONOSCOPY Routine 11/15/2024 2:58 PM EST documented in this encounter Results * Hm Colonoscopy (11/15/2024 2:58 PM EST) Not In System Provider HEALTH MAINTENANCE Edited Result - Final documented in this encounter Visit Diagnoses Not on filedocumented in this encounter Care Teams Asphalt Paving Foreman Relationship Specialty Start Date End Date Winston Philip MD [address] [place] [address] PCP - General Internal Medicine 10/17/23 Bety Rich FNP Family Medicine 09/09/22 Jeanne Dickinson [address] [place] [address] 07/31/23 Everton Wade 06/19/25 documented as of this encounter
--- OUTSIDE RECORDS SUMMARY | 2025-08-15 12:00 | XMS_ITS | Encounter Summary ---
Author Organization [employer] Address [address] [place] [address] 7 [place] [address] Care Team Providers Care Shuttle Veneering Supervisor Name Role Phone Bety Rich COLIN Unavailable Unavailable OzAries thompsonna Unavailable Nicolette Donnelly Unavailable [phone] Winston Philip MD Primary Care Provider + [phone] Everton Wade Unavailable Encounter Details Date Type Department Care Team (Late st Contact Info) Description 06/03/[address] [phone] Winston Philip MD [address] [place] [address] [phone] Social History Tobacco Use Types Packs/Day Years [...] - 06/03/2024 11:44 AM EDT Faxed in [facility] pcp forms several months ago, she is looking for them to be filled out and faxed back.[phone] documented in this encounter Plan of Treatment Upcoming Encounters Date Type Department Care Team (Late st Contact Info) Description 09/01/2025 10:00 AM EDT Office Visit [facility] [address] [place] [phone] Winston Philip MD [address] [place] [address] documented as of this encounter Visit Diagnoses Not on filedocumented in this encounter Care Teams Shuttle Veneering Supervisor Relationship Specialty Start Date End Date Winston Philip MD [address] [place] [address] PCP - General Internal Medicine 10/17/23 Bety Rich FNP Family Medicine 09/09/22 Jeanne Dickinson [address] [place] [address] 07/31/23 Nicolette Donnelly [address] [place] [address] 08/07/23 07/16/24 Everton Wade 06/19/25 documented as of this encounter
--- OUTSIDE RECORDS SUMMARY | 2025-08-15 12:00 | XMS_ITS ---
Author Organization [employer] Address [address] [place] [address] 7 [place] [address] Care Team Providers Care Project Manager/Design Manager Name Role Phone Bety Rich Unavailable Unavailable Jeanne Dickinson Unavailable Winston hPilip MD Primary Care Provider + [phone] Everton Wade Unavailable CM Complex Status:Enrolled (Active) Start date:02/18/2025 Enrollment date:06/11/2025 Enrollment reason:[facility] Case Team Name Relationship Phone February Bravo(Responsible Staff) [phone] Continued Care and Services Coordination
--- OUTSIDE RECORDS SUMMARY | 2025-08-15 12:00 | XMS_ITS | Encounter Summary ---
Author Organization [employer] Address [address] [place] [address] 7 [place] [address] Care Team Providers Care Decorating Instructor Name Role Phone Bety Rich COLIN Unavailable Unavailable OzAries thompsonna Unavailable Nicolette Donnelly Unavailable [phone] Winston Philip MD Primary Care Provider + [phone] Gloria Negrete Unavailable Everton Wade Unavailable Encounter Details Date Type Department Care Team (Late st Contact Info) Description 04/03/[address] [phone] Winston Philip MD [address] [place] [place] [address] Social History Tobacco Use Types Packs/Day [...] 09/01/2025 10:00 AM EDT Office [facility] [address] [place] [phone] Winston Philip MD [address] [place] [place] [address] documented as of this encounter Visit Diagnoses Not on filedocumented in this encounter Care Teams Decorating Instructor Relationship Specialty Start Date End Date Winston Philip MD [address] [place] [place] [address] PCP - General Internal Medicine 10/17/23 Bety Rich FNP Family Medicine 09/09/22 Jeanne Dickinson [address] [place] [address] 07/31/[address] [address] 08/07/23 07/16/24 Gloria Negrete [address] [place], [place] [address]JOBY [address] Community Health Worker 02/16/2405/28 Everton Wade 06/19/25 documented as of this encounter
--- OUTSIDE RECORDS SUMMARY | 2025-08-15 12:00 | XMS_ITS | Encounter Summary ---
Author Organization [employer] Address [address] [facility] 7 [place] [address] Care Team Providers Care Transit Survey Worker Name Role Phone Bety Rich Unavailable Unavailable AlessioAries de la garzana Unavailable Nicolette Donnelly Unavailable [phone] Winston Philip MD Primary Care Provider + [phone] Gloria Negrete Unavailable Everton Wade Unavailable Reason for Visit * Reason Comments Med Refill Encounter Details Date Type Department Care Team (Late st Contact Info) Description 02/10/2024 Refill [facility] [address] [place] [address] Bety Rich FNP Onychomycosis Social [...] the authorized approval for the referral to [facility], theydo not have it * Telephone [...] 9:00 AM Winston Philip MD [facility] Comments: documented in this encounter Plan of Treatment Upcoming Encounters Date Type Department Care Team (Late st Contact Info) Description 09/01/2025 10:00 AM EDT Office Visit [facility] [address] [place] [phone] Winston Philip MD [address] [place] [address] documented as of this encounter Visit Diagnoses Diagnosis Onychomycosis Dermatophytosis of nail documented in this encounter Care Teams Transit Survey Worker Relationship Specialty Start Date End Date Winston Philip MD [address] [place] [address] PCP - General Internal Medicine 10/17/23 Bety Rich FNP Family Medicine 09/09/22 Jeanne Dickinson [address] [place] [address] 07/31/23 Nicolette Donnelly [address] [place] [address] 08/07/23 07/16/24 Gloria Negrete [address] [place] [address] Community Health Worker 02/16/2405/28 Everton Wade 06/19/25 documented as of this encounter
--- OUTSIDE RECORDS SUMMARY | 2025-08-15 12:00 | XMS_ITS | Encounter Summary ---
Author Organization [employer] Address [address] [place] [address] 7 [place] [address] Care Team Providers Care Security System Analyst Name Role Phone Bety Rich COLIN Unavailable Unavailable OzAries thompsonna Unavailable Nicolette Donnelly Unavailable [phone] Winston Philip MD Primary Care Provider + [phone] Gloria Negrete Unavailable Everton Wade Unavailable Encounter Details Date Type Department Care Team (Late st Contact Info) Description 04/03/[address] [phone] Winston Philip MD [address] [place] [address] Social History Tobacco Use Types Packs/Day Years Used Date Smoking Tobacco: Former Cigarettes Smokeless Tobacco: Never Housing Stability Answer Date Recorded What is your housing situation today? I have mimi ramso 12/06/[address] you li [...] Description 09/01/2025 10:00 AM EDT Office Visit [facility] [address] [place] [phone] Winston Philip MD [address] [place] [address] documented as of this encounter Visit Diagnoses Not on filedocumented in this encounter Care Teams Security System Analyst Relationship Specialty Start Date End Date Winston Philip MD [address] [place] [address] PCP - General Internal Medicine 10/17/23 Bety Rich FNP Family Medicine 09/09/22 Jeanne Dickinson [address] [place] [address] 07/31/23 Nicolette Donnelly [address] [place] [address] 08/07/23 07/16/24 [place] [address] Community Health Worker 02/16/2405/28 Everton Wade 06/19/25 documented as of this encounter
--- OUTSIDE RECORDS SUMMARY | 2025-08-15 12:00 | XMS_ITS | Encounter Summary ---
Author Organization [employer] Address [address] [place] [address] 7 [place] [address] Care Team Providers Care Surveillance Analyst Name Role Phone Bety Rich COLIN Unavailable Unavailable Jeanne Dickinson Unavailable Winston Philip MD Primary Care Provider + [phone] Everton Wade Unavailable Encounter Details Date Type Department Care Team (Late st Contact Info) Description 08/08/[address] [phone] Winston Philip MD [address] [place], [place] [phone] Social History Tobacco Use Types Packs/Day Years [...] encounter Miscellaneous Notes * Telephone Encounter - Shirin Da Silva - 08/08/2025 9:01 AM EDT Santi Andrade is requesting a PT-1 for a medical appointment. Patient's [facility] ID: [id number] Complete Pickup Address (home):[address] [place] [address] Alternate pickup address (optional): Patient Emergency Contact Name and Number (optional): Drop off address (list all locations, including name of facility and care being received): [address] [place] [address] How many visits per month needed: 6 Yes or No: Please Check Boxes Below [...] is for [facility] ([facility]) Services documented in this encounter Plan of Treatment Upcoming Encounters Date Type Department Care Team ([facility] st Contact Info) Description 09/01/2025 10:00 AM EDT Office Visit [facility] [address] [place] [phone] Winston Philip MD [address] [place] [phone] documented as of this encounter Visit Diagnoses Not on filedocumented in this encounter Care Teams Surveillance Analyst Relationship Specialty Start Date End Date Winston Philip MD [address] [place] [address] PCP - General Internal Medicine 10/17/23 Bety Rich FNP Family Medicine 09/09/22 Jeanne Dickinson [address] [place] [phone] 07/31/23 Everton Wade 06/19/25 documented as of this encounter
[2025-08-15] MEDS: iohexoL 350 MG/ML 100 ML INFUS..BTL IV (12:17)
[2025-08-15 13:04] LABS: Reflex Lactate? Lactic Acid Added
[2025-08-15 14:44] LABS: ~Lactic Acid-LAB USE ONLY 4.6 mmol/L (0.5-2.0)
[2025-08-15 16:22] LABS: Reflex Lactate? 2 Y
[2025-08-15 16:34] LABS: Cannabinoid Screen Urine Not Detected (Not Detect)
[2025-08-15 17:05] LABS: ~Lactic Acid-LAB USE ONLY 4.0 mmol/L (0.5-2.0)
--- NOTE | 2025-08-15 18:18 | PC.NURSE ---
belongings returned from [employer] prior to d/c.
== END 2025-08-15 18:19 | disposition home or self-care (01) ==
PROVIDERS: Emergency Medicine; Emergency Provider Emergency Medicine
DX: F10.129 Alcohol abuse with intoxication, unspecified (principal); Y90.8 Blood alcohol level of 240 mg/100 ml or more; R09.02 Hypoxemia; R05.9 Cough, unspecified; R11.0 Nausea; Z91.148 Patient's other noncompliance with medication regimen for other reason; Z79.899 Other long term (current) drug therapy; Z51.81 Encounter for therapeutic drug level monitoring; Z87.891 Personal history of nicotine dependence
CPT/HCPCS: 36415; 70450; 71275; 80048; 80076; 80307; 83605; 83690; 83735; 83880; 84484; 85025; 87040; 93005; 96361; 96365; 96367; 96375; 99285; J1790; J2543; J3360; J3411; J3475; J7120; Q9967

== ENCOUNTER → 2025-08-15 10:16 | Outpatient (BNV) | payer MEDICAID, SELFPAY | PROVIDERS: Emergency Provider Emergency Medicine; Visit Provider Radiology Diagnostic Radiology | DX: R06.00 Dyspnea, unspecified (principal); S02.2XXA Fracture of nasal bones, initial encounter for closed fracture; Y04.8XXA Assault by other bodily force, initial encounter | CPT/HCPCS: 70450; 71275 ==

== ENCOUNTER → 2025-08-15 10:16 | Outpatient (BNV) | payer MEDICAID, SELFPAY | PROVIDERS: Emergency Provider Emergency Medicine; Visit Provider Internal Medicine | DX: R09.02 Hypoxemia (principal) | CPT/HCPCS: 93010 ==

== ENCOUNTER 2025-10-16 17:03 | Emergency (ER) | payer OTHER, SELFPAY ==
[2025-10-16] VITALS (9 sets, daily range): BP systolic 116–157; BP diastolic 67–101; PULSE 79–91; RESP 14–23; TEMP 36.3; O2SAT 93–96; BMI 23.7
--- NOTE | ~2025-10-16 | XR_ITS ---
EXAMINATION: XR THORACIC SPINE CLINICAL INFORMATION: acute on chronic mid back pain COMPARISON: None available. Correlation made with CT chest 08/15/2025. TECHNIQUE: 3 views of the thoracic spine were obtained. FINDINGS: There is a gentle levoconvex scoliosis, apex at T9. There is a normal kyphosis. There is normal alignment without subluxation. There is no fracture, compression deformity, or suspicious bone lesion identified. There is mild diffuse disc degeneration present most notable in the mid to lower spinal region. There is mild multilevel facet degeneration noted. There is normal facet alignment. There are degenerative changes in the lower cervical spine noted, particularly evident at C6-7. The paravertebral soft tissues, imaged mediastinal structures, and imaged lungs appear normal. XR/XR thoracic spine 3V IMPRESSION: 1. No acute findings of the thoracic spine on plain film radiography. 2. Mild to moderate degenerative changes with a minimal levoconvex scoliosis. Electronically signed by: Jose Juarez MD 10/17/2025 08:29 AM [facility]
--- NOTE | ~2025-10-16 | CT_ITS ---
EXAMINATION: CT HEAD WITHOUT IV CONTRAST HISTORY: fall. TECHNIQUE: Unenhanced helical CT of the head was performed per standard departmental protocol. Coronal and sagittal reformats of the head were also evaluated. One or more of the following techniques was used for dose reduction: Automated exposure control, adjustment of the mA and/or kV according to patient size, use of iterative reconstruction technique. DLP: 734 mGy-cm COMPARISON: Comparison is made with the prior examination dated 08/15/2025. FINDINGS: BRAIN: There is mild prominence of the ventricular system and cortical sulci, consistent with atrophy. Scattered periventricular and subcortical white matter hypodensities are noted which are nonspecific, but often seen in the setting of small vessel ischemic disease. There is no mass effect or midline shift. No intra- or extra-axial fluid collections are identified. SINUSES: The visualized paranasal sinuses are clear. The mastoid air cells and middle ear cavities are well pneumatized. ORBITS: The visualized orbits are unremarkable. BONES/SOFT TISSUES: The extracranial soft tissues are unremarkable. The calvarium is intact. No suspicious lytic or sclerotic lesions. CT/CT head/brain wo IV con IMPRESSION: No acute intracranial abnormality. Electronically signed by: Aneudy Pandey MD 10/17/2025 08:24 AM [facility] [place]
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
[2025-10-16] MEDS: OLANZapine 10 MG VIAL 5 MG IM (18:25)
--- NOTE | 2025-10-16 19:46 | PC.NURSE ---
Addendum entered by Aurora Linares RN 10/16/25 20:58: pt attempting to get out of stretcher, tried t redirect pt, pt started to yell and become cobative, security present, pt attempting to hti staff agin. pt medicated per jan. pt now quietly awake laying in stretcher. Original Note: attempted to collect labs on pt, pt became increasingly combative, swinging his fist at staff and yelling fuck you . Pt redirected by security. pt now resting in bed quietly. sitter in place at this time.
[2025-10-16] MEDS: diazePAM 10 MG/2 ML CARTRIDGE 5 MG IM (20:54)
[2025-10-16] MEDS: OLANZapine 10 MG VIAL IM (20:54)
[2025-10-16 23:21] LABS: MANUAL DIFF FLAG NO
[2025-10-16 23:23] LABS: Hematocrit 43.8 % (42.0-52.0); Hemoglobin 15.0 g/dl (14.0-18.0); Imm Gran Abs Auto 0.05 X10*3/uL (0.00-0.03); Imm Gran Pct Auto 0.8 % (0.0-0.4); Lymphocytes Absolute Auto 1.1 X10*3/uL (1.2-4.9); Mean Corpuscular HGB Conc 34.2 g/dl (31.0-36.0); Mean Corpuscular Hemoglobin 32.1 pg (27.0-33.0); Mean Corpuscular Volume 93.8 fL (80.0-98.0); NRBC Abs Auto 0.000 X10*3/uL (0.0-0.012); NRBC Pct Auto 0.0 /100WBC (0.0-0.2); Platelet Count 209 X10*3/uL (160-400); Red Blood Count 4.67 X10*6/uL (4.60-5.80); White Blood Count 6.2 X10*3/uL (4.8-10.8)
[2025-10-16 23:39] LABS: Anion Gap 16 (12-20); Blood Urea Nitrogen 15 mg/dL (9-16); Calcium 9.0 mg/dL (8.4-10.2); Carbon Dioxide 23 mmol/L (22-29); Chloride 112 mmol/L (96-108); Creatinine Clr Calc Pharmacy 83.0; Estimated Glomerular Filt Rate > 60; Potassium 4.0 mmol/L (3.3-5.1); Sodium 147 mmol/L (135-145)
[2025-10-17] VITALS (9 sets, daily range): BP systolic 97–135; BP diastolic 55–99; PULSE 68–97; RESP 13–18; TEMP 36.1–36.7; O2SAT 93–96
--- NOTE | 2025-10-17 07:42 | PC.NURSE ---
Assumed care at 0645. Patient resting in bed with no needs at this time . Awaiting Xray and CT scan.
--- NOTE | 2025-10-17 12:07 | PC.NURSE ---
Patient sitting upright in bed. Eating lunch and pleasant with staff. Ambulated to bathroom with no assistance. Patient denied any dizziness.
== END 2025-10-17 13:24 | disposition home or self-care (01) ==
PROVIDERS: Emergency Medicine; Emergency Provider Emergency Medicine
DX: F10.129 Alcohol abuse with intoxication, unspecified (principal); M54.9 Dorsalgia, unspecified; G89.29 Other chronic pain; Z87.891 Personal history of nicotine dependence
CPT/HCPCS: 36415; 70450; 72072; 80048; 80307; 85025; 96372; 99284; 99285; J1200; J2250; J2359; J3360

== ENCOUNTER → 2025-10-17 08:09 | Outpatient (BNV) | payer OTHER, SELFPAY | PROVIDERS: Emergency Provider Emergency Medicine; Visit Provider Radiology Diagnostic Radiology | DX: Z04.3 Encounter for examination and observation following other accident (principal); M51.34 Other intervertebral disc degeneration, thoracic region | CPT/HCPCS: 70450; 72072 ==

== ENCOUNTER 2025-10-20 09:36 | Emergency (ER) | payer OTHER, SELFPAY ==
[2025-10-20 09:43] VITALS: BP 161/75; PULSE 90; O2SAT 96; BMI 29.2
[2025-10-20 09:51] VITALS: BP 139/87; PULSE 88; RESP 16; TEMP 36.8; O2SAT 93
--- NOTE | 2025-10-20 10:04 | PC.NURSE ---
Pt coming from home by EMS, pt admits to drinking alcohol all the time . Pt was found by EMS to be in his bed. Unable to ambulate d/t unsteadiness. Pt placed in castañeda bed. Unable to change pt over at this time. sales market leader aware. Security performed safety check. Pt denies SI/HI/AVH
--- NOTE | 2025-10-20 10:27 | ED_ITS ---
HPI - General Adult General Chief complaint: ETOH/Substance Use Stated complaint: ETOH USE PER EMS Time Seen by Provider: 10/20/25 10:27 Source: patient Mode of arrival: ambulatory History of Present Illness ED Provider: Dr. Valverde HPI narrative: 64-year-old male history of alcohol use disorder presented hospital today for alcohol intoxication. Patient was brought in by ambulance from home. The patient stated that he is ?drunk? he does have alcohol use disorder. He has no medical complaints at this time. Related Data Home Medications ?Medication ?Instructions ?Recorded ?Confirmed acetaminophen 500 mg tablet 500 mg PO Q6H PRN mild jennifer n 08/23/24 06/16/25 (Acetaminophen Pain Relief) hydroxyzine HCl 25 mg tablet 50 mg PO BID PRN Anxiety 10/01/24 06/16/25 nicotine (polacrilex) 4 mg gum 4 mg PO NEEDED 10/0106/16/25 apixaban 5 mg tablet (Eliquis) 5 mg PO BID 06/16/25 diphenhydramine HCl 25 mg capsule 25 mg PO BEDTIME PRN Insomnia 06/16/25 06/16/25 (Banophen) multivitamin with folic acid 400 1 tab PO DAILY 06/16/25 mcg tablet (Daily-Mariaelena (with folic acid)) trazodone 50 mg tablet 50 mg PO BEDTIME PRN Insomni a 06/16/25 06/16/25 Allergies Allergy/AdvReac Type Severity Reaction Status Date / Time pollen extracts (POLLEN) Allergy Unknown UNKNOWN Verified 10/20/25 09:48 Review of Systems Review of Systems: Limited review of systems due to intoxication. [facility] Past Medical History [facility] Narrative: Limited due to alcohol intoxication. Medical History DVT (deep venous thrombosis) Alcohol use disorder, moderate, dependence Social History Social History Household Members: None Housing: Apartment Do you presently have visiting nurse or other home services: No Alcohol intake: current Alcohol intake frequency: 3 or more drinks per day Alcohol type: hard liquor Patient Tobacco Use Status: Former Tobacco user Tobacco use type: Cigarette Advance Directives: No Advance Directives Information Provided: No Do you have a plan to hurt others: No Plan service: No Physical Exam ED Exam Exam: General: The patient appears to be intoxicated on exam Head: Normacephalic, atraumatic ENT: oral mucosa moist, neck supple, no tracheal deviation Cardiovascular: regular rate, regular rhythm, no murmurs, rubbing, gallops Respiratory: CTAB, no wheeze, rales, rhonchi Gastrointestinal: Soft, non distended, non tender, non guarding Neurological: Awake and alert, appears intoxicated Skin: Warm and dry Psychiatric: Appears intoxicated Vital Signs: Vital Signs - 24 hr 10/20/25 09:51 Temperature 98.2 F Pulse Rate 88 Respiratory Rate 16 Blood Pressure 139/87 Pulse Oximetry 93 Oxygen Delivery Method Room Air BMI result Body Mass Index 29.2 Medical Decision Making Medical Decision Making MDM Narrative: 64-year-old male presented hospital today for alcohol intoxication. Patient is requesting some water. Ice water was given to the patient. We will allow patient to metabolize here. We will continue to observe the patient. He does appear to be intoxicated on my exam. Patient is able to ambulate with the nursing staff. Patient will be discharged. Differential Diagnosis Alcohol intoxication Discharge Plan Discharge Clinical Impression: Alcohol use disorder Patient Disposition: Home, Self-Care Additional Instructions: Alcohol use disorder You were seen in the Emergency Department today for treatment of alcohol use disorder.? You may have been given medications to help with your withdrawal symptoms.? Please do not drink alcohol with them. This is very dangerous and can cause respiratory depression or other adverse reactions depending on the medication. If you would like to cut down or stop your alcohol use please consider calling our outpatient Addiction Treatment office:? [facility] (M-F [id number]) [address] [place] [address] You have also been given a list of treatment providers in the area that can assist as well.? If you experience seizures, vomiting blood, black stools, falls, severe headache, chest pain, fevers, trouble breathing, hallucinations or any other concerns you need to call 911 or seek immediate care. Please stay hydrated. Prescriptions: No Action trazodone 50 mg Tablet 50 mg PO BEDTIME PRN (Reason: Insomnia) Rx Instructions: take 1-2 capsules at bedtime as needed for insomnia diphenhydramine HCl [Banophen] 25 mg Capsule 25 mg PO BEDTIME PRN (Reason: Insomnia) Rx Instructions: Take 1-2 capsules at bedtime as needed for insomnia multivitamin with folic acid [Daily-Mariaelena (with folic acid)] 400 mcg tablet 1 tab PO DAILY Eliquis 5 mg tablet 5 mg PO BID acetaminophen [Acetaminophen Pain Relief] 500 mg tablet 500 mg PO Q6H PRN (Reason: mild pain) nicotine (polacrilex) 4 mg gum 4 mg PO NEEDED hydroxyzine HCl 25 mg tablet 50 mg PO BID PRN (Reason: Anxiety) Print Language: [place]
[2025-10-20 14:07] VITALS: BP 139/87; PULSE 88; RESP 16; TEMP 36.8; O2SAT 93
== END 2025-10-20 14:07 | disposition home or self-care (01) ==
PROVIDERS: Emergency Provider Student in an Organized Health Care Education/Training Program
DX: F10.90 Alcohol use, unspecified, uncomplicated (principal); Z87.891 Personal history of nicotine dependence
CPT/HCPCS: 99283; 99284

== ENCOUNTER 2025-10-21 10:56 | Emergency (ER) | payer OTHER, SELFPAY ==
--- NOTE | ~2025-10-21 | XR_ITS ---
EXAMINATION: XR CHEST CLINICAL INFORMATION: hypoxia COMPARISON: April 27, 2025 TECHNIQUE: Frontal view of the chest was obtained. FINDINGS: No significant abnormality is noted involving the heart, lungs, mediastinum, bony thorax or soft tissues. XR/XR chest 1V IMPRESSION: No acute disease, stable x-ray Electronically signed by: Wei Ventura MD 10/21/2025 02:02 PM [facility]
[2025-10-21 11:07] VITALS: BP 159/108; PULSE 102; O2SAT 95
--- NOTE | 2025-10-21 11:07 | ED.GENADULT ---
HPI - General Adult General Chief complaint: ETOH/Substance Use Stated complaint: DRINKING VODKA ALL NIGHT,NO COMP,COOP,BP 182-112 Time Seen by Provider: 10/21/25 10:58 Source: patient Mode of arrival: ambulatory Limitations: no limitations History of Present Illness HPI narrative: Chief Complaint: Intoxication; patient seeking detoxification. History of Present Illness: 64-year-old male with a history of binge drinking, alcohol use disorder, and deep-vein thrombosis (currently on anticoagulation) activated EMS after drinking ?three pints? today of vodka. He acknowledges ?drinking way too much? and states he would like assistance with detox. He denies any falls or other trauma. He denies suicidal or homicidal ideation. No medical complaints such as fevers, chills, cp, sob, n/v/abd pain, [place], vision changes dizziness weakness Related Data Home Medications ?Medication ?Instructions ?Recorded ?Confirmed acetaminophen 500 mg tablet 500 mg PO Q6H PRN mild pain 08/23/24 06/16/25 (Acetaminophen Pain Relief) hydroxyzine HCl 25 mg tablet 50 mg PO BID PRN Anxiety 10/01/24 06/16/25 nicotine (polacrilex) 4 mg gum 4 mg PO NEEDED 10/01/24 06/16/25 apixaban 5 mg tablet (Eliquis) 5 mg PO BID 06/16/25 06/16/25 diphenhydramine HCl 25 mg capsule 25 mg PO BEDTIME PRN Insomnia 06/16/25 06/16/25 (Banophen) multivitamin with folic acid 400 1 tab PO DAILY 06/16/25 06/16/25 mcg tablet (Daily-Mariaelena (with folic acid)) trazodone 50 mg tablet 50 mg PO BEDTIME PRN Insomnia 06/16/25 06/16/25 Allergies Allergy/AdvReac Type Severity Reaction Status Date / Time pollen extracts (POLLEN) Allergy Unknown UNKNOWN Verified 10/21/25 11:34 Review of Systems Review of Systems: Yes all other systems are reviewed and are negative PMFSH Past Medical History Attestation statement: The following information was validated with the patient. Source: old records reviewed and nursing notes reviewed Medical History DVT (deep venous thrombosis) Alcohol use disorder, moderate, dependence Social History Social History Household Members: None Housing: Apartment Do you presently have visiting nurse or other home services: No Alcohol intake: current Alcohol intake frequency: 3 or more drinks per day Alcohol type: hard liquor Patient Tobacco Use Status: Former Tobacco user Tobacco use type: Cigarette Advance Directives: Yes Advance Directives Information Provided: Yes Advance Directives on File: No service: No Physical Exam ED Exam Exam: Appearance: Alert.? Oriented X3.? No acute distress.? Head: Normocephalic, atraumatic, no step-offs or deformities Eyes: Pupils equal, round and reactive to light.? Neck: Normal inspection.? Neck supple.? CVS: Normal heart rate and rhythm.? Pulses normal.? Respiratory: No respiratory distress.? Breath sounds normal.? Abdomen: Soft and nontender.? Skin: Skin warm and dry.? Normal skin color.? Normal skin turgor.? Extremities: No lower extremity edema.? No calf ttp. 5/5 strength to bilateral upper and lower extremities Back: No midline tenderness, no C-spine tenderness, full range of motion, no CVA tenderness bilaterally Neuro: Oriented X 3.? No motor deficit.? No sensory deficit. CN 2-12 intact Vital Signs: Vital Signs - 24 hr 10/21/25 11:33 10/21/25 15:39 Temperature 99.3 F 98.4 F Pulse Rate 102 H 104 H Respiratory Rate 20 18 Blood Pressure 124/86 Pulse Oximetry 90 L 94 Oxygen Delivery Method Room Air Room Air BMI result Body Mass Index 28.1 vss Course Reevaluation(s) Reevaluation #1: Chest x-ray no acute disease stable x-ray CBC unremarkable. Chemistry with no acute findings needing intervention discussed. Patient's ethanol 314. Chest x-ray no acute disease stable x-ray Time: 14:39 Reevaluation #2: Patient's breathing is not labored 90% on room air was likely documented when patient was in deep sleep. He is saturating much better at this time I did however out of flu COVID RSV to ensure this is not viral. Time: 14:39 Reevaluation #3: Patient's O2 sat has been anywhere between 94-96% while awake. Patient does not want detox at this time he says he only wants to go to [facility] which does not have any beds according to recovery. Patient is requesting to be discharged she appears clinically sober ambulating with steady gait normal coordination. He offers no complaints at this time other than he wants to go home Time: 16:52 Additional Reevaluation(s): Educated patient on diagnosis and treatment plan, answered all question, patient verbalizes understanding. At this time patient will be discharged home, advised to return with new or worsening symptoms. Educated on worrisome signs and symptoms and when to return. At this time I feel comfortable discharge home. Medications Administered Discontinued Medications Generic Name Dose Route Start Last Admin Trade Name Silvina PRN Reason Stop Dose Admin Acetaminophen 975 mg 10/21/25 12:33 10/21/25 12:37 Acetaminophen 325 Mg Tablet PO 10/21/25 12:34 975 mg ONCE ONE Administration Nicotine 21 mg 10/21/25 12:34 10/21/25 12:37 Nicotine 21 Mg Patch.[id number] TRANSDERMA 10/21/25 12:35 21 mg ONCE ONE Administration Medical Decision Making Medical Decision Making [facility] Narrative: Problem #1: Alcohol intoxication / Alcohol use disorder Assessment: Acute alcohol intoxication in the setting of chronic binge drinking; patient requesting detox. Plan: medical clearance Problem #2: Anticoagulation therapy / History of DVT Assessment: History of deep-vein thrombosis; patient currently on anticoagulation. Plan: No falls or truama no indication for trauma work up. Differential Diagnosis Differential Diagnoses: The differential diagnosis associated with the presentation includes Admission/Observation Consideration of admission/observation: Escalation of care including admission/observation considered Lab Data [facility] Lab Attestation statement: I reviewed the patient's lab results. 10/21/25 11:39 10/21/25 11:39 Labs: Lab Results 10/21/25 Range/Units 11:39 WBC 5.5 (4.8-10.8) X10*3/uL RBC 4.57 L (4.60-5.80) X10*6/uL Hgb 14.4 (14.0-18.0) g/dl Hct 41.8 L (42.0-52.0) % MCV 91.5 (80.0-98.0) fL MCH 31.5 (27.0-33.0) pg MCHC 34.4 (31.0-36.0) g/dl RDW 14.2 (11.0-16.0) % Plt Count 191 (160-400) X10*3/uL MPV 8.1 L (9.4-12.4) fL Immature Gran % (Auto) 1.1 H (0.0-0.4) % Neut % (Auto) 70.9 (45-73) % Lymph % (Auto) 17.1 L (20-40) % Quay % (Auto) 10.0 (2-11) % Eos % (Auto) 0.2 (0-4) % Baso % (Auto) 0.7 (0-2) % Lymph # (Auto) 0.9 L (1.2-4.9) X10*3/uL Quay # (Auto) 0.6 (0.1-1.2) X10*3/uL Eos # (Auto) 0.0 (0.0-0.4) X10*3/uL Baso # (Auto) 0.0 (0.0-0.2) X10*3/uL Abs Immat Gran (auto) 0.06 H (0.00-0.03) X10*3/uL Absolute Neuts (auto) 3.9 (2.0-8.3) x10*3/uL Absolute Nucleated RBC 0.000 (0.0-0.012) X10*3/uL Nucleated RBC % (auto) 0.0 (0.0-0.2) /100WBC Sodium 146 H (135-145) mmol/L Potassium 3.4 (3.3-5.1) mmol/L Chloride 105 (96-108) mmol/L Carbon Dioxide 24 (22-29) mmol/L Anion Gap 20 (12-20) BUN 18 H (9-16) mg/dL Creatinine 0.80 (0.5-1.4) mg/dL Estim Creat Clear Calc 99.7 Estimated GFR > 60 Random Glucose 99 (60-115) mg/dL Calcium 9.0 (8.4-10.2) mg/dL Magnesium 1.8 (1.6-2.6) mg/dL Total Bilirubin 0.5 (0.0-1.0) mg/dL AST 39 H (5-37) U/L ALT 21 (0-40) U/L Alkaline Phosphatase 69 (39-117) U/L Total Protein 6.5 (6.5-8.0) g/dL Albumin 4.5 (3.5-5.0) g/dL Ethyl Alcohol 314 H* mg/dL Independent Historian Clinical information obtained from an independent historian. History obtained from or confirmed by: EMS External Record Review External record reviewed: Inpatient record, Office record, Outpatient record, Prior outpatient labs, Prior outpatient radiology, Primary care record and Outside ED record Chronic Conditions Patient?s care impacted by: Other (see hpi ) Social Determinants Patient?s care significantly limited by Social Determinants of Health including: Other Social Determinant of Health Critical Care Time Critical Care Time Critical Care Time: No Discharge Plan Discharge Clinical Impression: Alcoholic intoxication Patient Disposition: Home, Self-Care Instructions: Alcohol Intoxication (DC) Additional Instructions: Take your medications as prescribed. If you were prescribed antibiotics today, it is important that you take your medication to their entirety, do not skip any doses, do not finish them early. Follow-up with your primary care provider this week. Return to the emergency department with new or worsening symptoms. Such as fevers, chills, chest pain, shortness of breath, nausea, vomiting, dizziness, headache, vision changes, lethargy In case of emergency call 911 Prescriptions: No Action trazodone 50 mg Tablet 50 mg PO BEDTIME PRN (Reason: Insomnia) Rx Instructions: take 1-2 capsules at bedtime as needed for insomnia diphenhydramine HCl [Banophen] 25 mg Capsule 25 mg PO BEDTIME PRN (Reason: Insomnia) Rx Instructions: Take 1-2 capsules at bedtime as needed for insomnia multivitamin with folic acid [Daily-Mariaelena (with folic acid)] 400 mcg tablet 1 tab PO DAILY Eliquis 5 mg tablet 5 mg PO BID acetaminophen [Acetaminophen Pain Relief] 500 mg tablet 500 mg PO Q6H PRN (Reason: mild pain) nicotine (polacrilex) 4 mg gum 4 mg PO NEEDED hydroxyzine HCl 25 mg tablet 50 mg PO BID PRN (Reason: Anxiety) Referrals: Physician,Unknown J [Primary Care Provider, Medical] Stand Alone Forms: Work/School Release Print Language: [place]
[2025-10-21 11:33] VITALS: BP 124/86; PULSE 102; RESP 20; TEMP 37.4; O2SAT 90; BMI 28.1
--- NOTE | 2025-10-21 11:41 | MHC.EDTECH ---
pt fully changed over into green hospital gown, fall risk precautions in place (yellow socks on person, yellow socks on bed rails, fall risk band on wrist, fall risk alarm on pt), urinal at bedside, blood work and vitals obtained, RN aware
[2025-10-21 11:43] LABS: MANUAL DIFF FLAG NO
[2025-10-21 11:44] LABS: Hematocrit 41.8 % (42.0-52.0); Hemoglobin 14.4 g/dl (14.0-18.0); Imm Gran Abs Auto 0.06 X10*3/uL (0.00-0.03); Imm Gran Pct Auto 1.1 % (0.0-0.4); Lymphocytes Absolute Auto 0.9 X10*3/uL (1.2-4.9); Mean Corpuscular HGB Conc 34.4 g/dl (31.0-36.0); Mean Corpuscular Hemoglobin 31.5 pg (27.0-33.0); Mean Corpuscular Volume 91.5 fL (80.0-98.0); NRBC Abs Auto 0.000 X10*3/uL (0.0-0.012); NRBC Pct Auto 0.0 /100WBC (0.0-0.2); Platelet Count 191 X10*3/uL (160-400); Red Blood Count 4.57 X10*6/uL (4.60-5.80); White Blood Count 5.5 X10*3/uL (4.8-10.8)
[2025-10-21 11:58] LABS: Alanine Aminotransferase 21 U/L (0-40); Albumin Level 4.5 g/dL (3.5-5.0); Alkaline Phosphatase 69 U/L (39-117); Anion Gap 20 (12-20); Aspartate Amino Transferase 39 U/L (5-37); Blood Urea Nitrogen 18 mg/dL (9-16); Calcium 9.0 mg/dL (8.4-10.2); Carbon Dioxide 24 mmol/L (22-29); Chloride 105 mmol/L (96-108); Creatinine Clr Calc Pharmacy 99.7; Estimated Glomerular Filt Rate > 60; Magnesium 1.8 mg/dL (1.6-2.6); Potassium 3.4 mmol/L (3.3-5.1); Sodium 146 mmol/L (135-145); Total Protein 6.5 g/dL (6.5-8.0)
[2025-10-21] MEDS: Nicotine 21 MG PATCH.TD24 TRANSDERMA (12:37)
--- NOTE | 2025-10-21 15:19 | MHC.CARE ---
Pt initially requested [facility], however no beds are available. Pt open to any detox placement. Pt has been referred to [facility].
--- NOTE | 2025-10-21 15:38 | MHC.EDTECH ---
pt declining sars/flu/rsv swab stating im going home rn and provider aware
[2025-10-21 15:39] VITALS: PULSE 104; RESP 18; TEMP 36.9; O2SAT 94
[2025-10-21 17:20] VITALS: BP 0/0; PULSE 0; RESP 18; TEMP -17.7; TEMP 0; O2SAT 0
== END 2025-10-21 17:22 | disposition home or self-care (01) ==
PROVIDERS: Physician Assistant; Emergency Provider Emergency Medicine Emergency Medical Services
DX: F10.129 Alcohol abuse with intoxication, unspecified (principal); Y90.8 Blood alcohol level of 240 mg/100 ml or more; Z86.718 Personal history of other venous thrombosis and embolism; Z79.01 Long term (current) use of anticoagulants
CPT/HCPCS: 36415; 71045; 80053; 80307; 83735; 85025; 99283; 99284; S9485

== ENCOUNTER → 2025-10-21 11:49 | Outpatient (BNV) | payer OTHER, SELFPAY | PROVIDERS: Emergency Provider Emergency Medicine Emergency Medical Services; Visit Provider Radiology Diagnostic Radiology | DX: R09.02 Hypoxemia (principal) | CPT/HCPCS: 71045 ==